=== PATIENT | male | born 1945 | race Caucasian/White ===

== ENCOUNTER 2019-07-18 09:09 | Inpatient (IN) | payer OTHER, SELFPAY ==
[2019-07-18] VITALS (17 sets, daily range): BP systolic 93–143; BP diastolic 47–88; PULSE 68–88; RESP 14–20; TEMP 36–36.8; O2SAT 91–100; BMI 23.8
--- NOTE | 2019-07-18 09:35 | ED.GENADULT ---
HPI - General Adult General Chief complaint: GI Bleed Stated complaint: weakness, low bp, sob Time Seen by Provider: 07/18/19 09:35 Source: patient Mode of arrival: ambulatory Limitations: no limitations History of Present Illness HPI narrative: Patient is a 73-year-old male who presents for evaluation of dark-colored stools. Patient reportedly was seen by his primary care physician today, , found to be tachycardic, hypotensive and sent for assessment. Pt ambulatory in the ED. Pt reported feeling lightheaded and dizzy with standing, otherwise reporting no pain. Patient began to feel unwell Sunday night into with several maroon-colored stools. He has a history of ulceration many years ago that was treated by his primary care provider. Patient did receive chemotherapy in March, for a slow form of lymphoma. No current chemotherapy per patient. Patient states he follows at [facility]. No numbness. No abdominal pain or vomiting. Patient is not on any anticoagulation. Related Data Home Medications Medication Instructions Recorded Confirmed metformin 500 mg PO DAILY 01/02/19 07/18/19 blood sugar diagnostic #10 each 03/26/19 07/18/19 lancets 33 gauge #100 each 03/26/19 07/18/19 pioglitazone 45 mg tablet 45 mg PO DAILY 03/26/19 07/18/19 tadalafil 20 mg tablet 20 mg PO DAILY PRN 03/26/19 07/18/19 Allergies Allergy/AdvReac Type Severity Reaction Status Date / Time No Known Allergies Allergy Verified 07/18/19 09:23 Review of Systems Review of Systems: Narrative: CONSTITUTIONAL: Denies fever, chills, or sweats. EYES: Denies visual changes ENT: Denies rhinorrhea, congestion, sore throat, or otalgia. CARDIOVASCULAR: Denies chest pain, palpitations, or edema. RESPIRATORY: Denies cough or dyspnea. GASTROINTESTINAL: Denies abdominal pain, nausea, vomiting GENITOURINARY: Denies dysuria or hematuria. SKIN: Denies rash or itching. MUSCULOSKELETAL: Denies back pain, joint pain, or myalgia. NEUROLOGIC: Denies headache, numbness, or weakness. [facility] Past Medical History Medical History Anemia COPD (chronic obstructive pulmonary disease) Dyslipidemia, goal LDL below 100 Essential (primary) hypertension Ganglion cyst of joint of finger of left hand HLD (hyperlipidemia) Lymphoma Type 2 diabetes mellitus without complications Wound dehiscence, internal operation Surgical History Surgical History History of colonic polyps Status post exploratory laparotomy Biopsy retroperitoneal lymphadenopathy Wound dehiscence, traumatic injury repair Family History Family History Father Acute myocardial infarction Sibling Cerebrovascular accident Family history of malignant neoplasm of brain Mother Family history of congestive heart failure Social History Social History Smoking status: Former smoker Alcohol intake: never Substance use: never Substance use type: does not use Gender identity (if verbalized by the patient): Male Spiritual care concerns: No Agree to blood products: Yes Exam Narrative: Exam Narrative: GENERAL: Awake, alert, conversant HEAD: Normocephalic, atraumatic. EYES: PERRLA and EOMI. ENT: Nares clear, no rhinorrhea or epistaxis. Mucous membranes moist. NECK: Supple. CHEST: No respiratory distress, breathing even and non labored HEART: Regular rate, sinus rhythm ABDOMEN:Non distended, non tender : Rectal: Good tone, grossly melanotic stool present EXTREMITIES: Normal range of motion. No edema. SKIN: Warm, dry, no rash. NEURO:No focal deficits. Alert and oriented x3 Course Course Emergency Course: Patient presented to the emergency department for evaluation of maroon-colored stools. At the time of initial assessment, ABCs are intact and vital sig
[2019-07-18 09:40] LABS: Basophils Absolute Auto 0.1 K/mm3 (0.0-0.1); Basophils Percent Auto 0.6 % (0.2-1.2); Eosinophils Absolute Auto 0.2 K/mm3 (0-0.3); Eosinophils Percent Auto 2.9 % (0-4.4); Hematocrit 23.1 % (42.0-52.0); Hemoglobin 7.4 g/dL (14.0-18.0); Immature Granulocyte Absolute 0.03 K/mm3 (0.00-0.031); Immature Granulocyte Percent A 0.4 % (0-0.5); Lymphocytes Absolute Auto 1.98 K/mm3 (0.9-3.2); Lymphocytes Percent Auto 23.8 % (18.3-44.2); Mean Corpuscular Hemoglobin 32.3 pg (26-34); Mean Corpuscular Volume 100.9 fl (80-100); Mean Platelet Volume 10.6 fl (7.4-10.4); Monocytes Absolute Auto 0.9 K/mm3 (0.1-0.6); Monocytes Percent Auto 10.8 % (2.6-8.5); Neutrophils Absolute Auto 5.1 K/mm3 (1.3-6.7); Neutrophils Percent Auto 61.5 % (45.5-73.1); Platelet Count Result 247 k/mm3 (150-375); Red Blood Count 2.29 M/mm3 (4.6-6.20); White Blood Count 8.3 K/mm3 (4.5-10.0)
[2019-07-18] MEDS: SODIUM CHLORIDE 0.9% IV 1,000 ML 999 ML IV CONT (09:40)
--- NOTE | 2019-07-18 09:42 | ECG_ITS ---
Measurements Intervals [place] Rate: 79 P: 76 NE: 143 QRS: 73 QRSD: 92 T: 93 QT: 383 QTc: 441 Interpretive Statements SINUS RHYTHM NONSPECIFIC T-WAVE ABNORMALITY- HIGH LATERAL LEADS BASELINE WANDER- I, II, AVR, AVF, V4 BORDERLINE ECG Electronically Signed On 07-18-2019 10:12:37 CDT by Storm Gutierrez D.O.
[2019-07-18 09:50] LABS: Prothrombin Time 13.3 Seconds (11.1-14.7)
[2019-07-18 10:04] LABS: Alanine Aminotransferase 11 U/L (4-50); Albumin Level 3.8 g/dL (3.5-5.1); Alkaline Phosphatase 73 U/L (38-126); Aspartate Amino Transferase 21 U/L (17-59); Bilirubin,Total 0.3 mg/dL (0.2-1.3); Blood Urea Nitrogen 19 mg/dL (9-20); Calcium 8.4 mg/dL (8.4-10.2); Carbon Dioxide 23 mmol/L (22-30); Chloride 106 mmol/L (98-107); Estimated CRCL calculation 79 ml/min; Estimated Glomerular Filt Rate > 60; Glucose 183 mg/dL (75-110); Potassium 4.8 mmol/L (3.4-5.0); Sodium 135 mmol/L (137-145)
[2019-07-18] MEDS: PANTOPRAZOLE SODIUM IV 40 MG VIAL IV PUSH (11:17)
--- NOTE | 2019-07-18 11:58 | PC.NURSE ---
1155 blood consent obtained
--- NOTE | 2019-07-18 13:29 | PC.NURSE ---
Patient in bed resting comfortably with no complaints at this time. Will continue to monitor patient.
[2019-07-18] MEDS: SODIUM CHLORIDE 0.9% IV 250 ML 30 ML IV CONT ×2 (13:30→23:10)
[2019-07-18] MEDS: LACTATED RINGERS 1,000 ML 125 ML IV CONT (17:10)
[2019-07-18 19:30] LABS: Hematocrit 22.3 % (42.0-52.0); Hemoglobin 7.2 g/dL (14.0-18.0)
--- NOTE | 2019-07-18 22:45 | PM.IMHP ---
H&P: HPI History of Present Illness Chief complaint: Dark stools, shortness of breath, weakness. Narrative: Konrad Nieto is a very pleasant 73-year-old male with history of marginal zone lymphoma, chronic anemia, hypertension, hyperlipidemia, and type 2 diabetes mellitus who presented to the emergency department earlier today for evaluation of dark stools, shortness of breath, and weakness. On Sunday night, he reports under general bowel movement and notes passing a large, loose, burgundy colored stool. He had a couple more episodes over the next 24 hours, and since that time he has noticed dyspnea on exertion, generalized weakness, and lightheadedness/dizziness upon standing. He was seen by Dr. Oconnor this morning and was found to be orthostatic and thus was directed to the emergency department while he was found to have grossly melanotic stools on rectal exam. He was also found to have acute on chronic anemia and was admitted in this setting. At the time my evaluation he is just starting to receive his 2nd unit of packed red blood cells. He has not had a bowel movement in the last 48 hours or so. He has a previous history of colon polyps and diverticulosis, but has never had bleed to his knowledge. He denies GERD and indigestion. No history of peptic ulcers. He denies NSAID use and alcohol use. He drinks maybe 4 to 5 cups of coffee a day. Other than the dyspnea on exertion and weakness, he has no complaints. Last colonoscopy was in 2019, done at [facility]. Review of Systems Review of Systems: Narrative: Twelve systems were reviewed with pertinent positives and negatives as per HPI. Weight has remained stable although his appetite has ?dropped off on ?recently.? He denies fever, chills, and sweats. No recent cold or flu symptoms. No chest pain or pleuritic pain. He denies cough. No nausea or vomiting. No dysuria. No lymphadenopathy. Except as documented, all other systems were reviewed and are negative. [facility] Past Medical History Medical History (Updated 07/18/19 @ 23:56 by Eden Gunderson PA-C) Benign prostatic hyperplasia Chronic anemia Colon polyps COPD (chronic obstructive pulmonary disease) Dyslipidemia Essential hypertension Ganglion cyst of joint of finger of left hand Marginal zone lymphoma Treated with chemotherapy at [facility] in [place] per Dr. Gresham. Type 2 diabetes mellitus without complications Surgical History Surgical History (Updated 07/18/19 @ 23:53 by Eden Gunderson PA-C) History of transurethral resection of prostate Status post exploratory laparotomy (~12/2018) With excisional biopsy of periaortic and periportal lymphadenopathy, histology showing marginal zone lymphoma. Wound dehiscence, traumatic injury repair (~01/2019) Repair of abdominal wound fascial dehiscence with evisceration. Family History Family History (Updated 07/18/19 @ 23:53 by Eden Gunderson PA-C) Father Acute myocardial infarction Sibling Cerebrovascular accident Family history of malignant neoplasm of brain Mother Family history of congestive heart failure Sibling Lung cancer Social History Social History (Updated 07/18/19 @ 23:54 by Eden Gunderson PA-C) Social History: The patient is and lives in his own home in [place]. He has 3 biological children and 2 step children. 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 He is a lifelong nonsmoker and denies alcohol and drug abuse. He designates his daughter, Brisa Brunner, as his surrogate decision maker and he wishes to be a full code. Spiritual care concerns: No Agree to blood products: Yes Meds Home Medications and Allergies Home Medications Medication Instructions Recorded Confirmed Type metformin 500 mg PO DAILY 01/02/19 07/18/19 History blood sugar diagnostic #10 each 03/26/19 07/18/19 History lancets 33 gauge #100 each 03/26/19 07/18/19 History pioglitazone 45 mg tablet 45 mg PO DAILY 03/26/19 07/18/19 H
[2019-07-19] VITALS (20 sets, daily range): BP systolic 117–170; BP diastolic 50–90; PULSE 64–87; RESP 16–20; TEMP 36.2–36.8; O2SAT 95–98
[2019-07-19] MEDS: LACTATED RINGERS 1,000 ML 125 ML IV CONT (00:45)
[2019-07-19 03:49] LABS: Hematocrit 24.7 % (42.0-52.0); Hemoglobin 8.1 g/dL (14.0-18.0); Mean Corpuscular HGB Conc 32.8 g/dl (32-36); Mean Corpuscular Volume 97.6 fl (80-100); Mean Platelet Volume 9.8 fl (7.4-10.4); Platelet Count Result 162 k/mm3 (150-375); Red Blood Count 2.53 M/mm3 (4.6-6.20); Red Cell Distribution Width 16.1 % (11.5-14.5); White Blood Count 6.5 K/mm3 (4.5-10.0)
[2019-07-19 04:04] LABS: Blood Urea Nitrogen 9 mg/dL (9-20); Calcium 8.3 mg/dL (8.4-10.2); Carbon Dioxide 27 mmol/L (22-30); Chloride 107 mmol/L (98-107); Estimated CRCL calculation 89 ml/min; Estimated Glomerular Filt Rate > 60; Glucose 109 mg/dL (75-110); Potassium 3.7 mmol/L (3.4-5.0); Sodium 135 mmol/L (137-145)
[2019-07-19 04:32] LABS: Hemoglobin A1C 6.6 % (<5.7)
[2019-07-19 05:56] LABS: Glucose Point of Care 121 (65-105)
--- NOTE | 2019-07-19 06:45 | PC.NURSE ---
Pt to GI lab per w/c. Pt voiced understanding with no complaints at this time.
[2019-07-19] MEDS: LACTATED RINGERS 1,000 ML 150 ML IV CONT (07:00)
--- NOTE | 2019-07-19 07:04 | WPDANESEPPF ---
Anes - Initial Pre Proc Eval Procedure: Operation Date: 07/19/19 07:00 Proposed Procedures p Esophagogastroduodenoscopy - Uday Park MD Date/Time: 07/19/19 07:04 Surgeon: Koffi Mcdonough MD Pre Op Diagnosis: Dark stools, shortness of breath, weakness. Patient Data Age: 73 Gender: M Height: 5 ft 11 in Weight: 77.4 kg Last Vital Signs Temp 36.8 C 07/19/19 06:53 Pulse 72 07/19/19 06:53 Resp 16 07/19/19 06:53 BP 149/72 H 07/19/19 06:53 Pulse Ox 97 07/19/19 06:53 Allergies Allergy/AdvReac Type Severity Reaction Status Date / Time No Known Allergies Allergy Verified 07/19/19 06:53 Home Medications Medication Instructions Recorded Confirmed Type metformin 500 mg PO DAILY 01/02/19 07/18/19 History blood sugar diagnostic #10 each 03/26/19 07/18/19 History lancets 33 gauge #100 each 03/26/19 07/18/19 History pioglitazone 45 mg tablet 45 mg PO DAILY 03/26/19 07/18/19 History tadalafil 20 mg tablet 20 mg PO DAILY PRN 03/26/19 07/18/19 History losartan 50 mg tablet 50 mg PO DAILY #90 tablet 04/04/19 07/18/19 Rx atenolol [Tenormin] 50 mg PO DAILY 07/18/19 07/18/19 History atorvastatin [Lipitor] 10 mg PO DAILY 07/18/19 07/18/19 History glimepiride [Amaryl] 1 mg PO BID 07/18/19 07/18/19 History Laboratory Tests 07/18/19 07/18/19 07/18/19 09:29 09:29 09:30 WBC 8.3 K/mm3 K/mm3 (4.5-10.0) RBC 2.29 M/mm3 L M/mm3 (4.6-6.20) Hgb 7.4 g/dL L D g/dL (14.0-18.0) Hct 23.1 % L % (42.0-52.0) MCV 100.9 fl H fl (80-100) MCH 32.3 pg pg (26-34) MCHC 32.0 g/dl g/dl (32-36) RDW 16.0 % H % (11.5-14.5) Plt Count 247 k/mm3 k/mm3 (150-375) MPV 10.6 fl H fl (7.4-10.4) Immature Gran % (Auto) 0.4 % % (0-0.5) Neut % (Auto) 61.5 % % (45.5-73.1) Lymph % (Auto) 23.8 % % (18.3-44.2) Garden % (Auto) 10.8 % H % (2.6-8.5) Eos % (Auto) 2.9 % % (0-4.4) Baso % (Auto) 0.6 % % (0.2-1.2) Lymph # (Auto) 1.98 K/mm3 K/mm3 (0.9-3.2) Garden # (Auto) 0.9 K/mm3 H K/mm3 (0.1-0.6) Eos # (Auto) 0.2 K/mm3 K/mm3 (0-0.3) Baso # (Auto) 0.1 K/mm3 K/mm3 (0.0-0.1) Abs Immat Gran (auto) 0.03 K/mm3 K/mm3 (0.00-0.031) Absolute Neuts (auto) 5.1 K/mm3 K/mm3 (1.3-6.7) Absolute Nucleated RBC 0.0 K/mm3 K/mm3 (0.0-0.012) Nucleated RBC % 0.0 % % (0.0-0.2) PT 13.3 Seconds Seconds (11.1-14.7) INR 1.0 APTT 27.0 SECONDS SECONDS (22.3-36.8) Sodium Potassium Chloride Carbon Dioxide BUN Creatinine Estim Creat Clear Calc Estimated GFR Glucose POC Capillary Glucose Hemoglobin A1c Calcium Total Bilirubin AST ALT Alkaline Phosphatase Total Protein Albumin Blood Type A Positive Antibody Screen Negative Crossmatch See Detail 07/18/19 07/18/19 07/19/19 09:30 19:26 03:41 WBC 6.5 K/mm3 K/mm3 (4.5-10.0) RBC 2.53 M/mm3 L M/mm3 (4.6-6.20) Hgb 7.2 g/dL L g/dL 8.1 g/dL L g/dL (14.0-18.0) (14.0-18.0) Hct 22.3 % L % 24.7 % L % (42.0-52.0) (42.0-52.0) MCV 97.6 fl fl (80-100) MCH 32.0 pg pg (26-34) MCHC 32.8 g/dl g/dl (32-36) RDW 16.1 % H % (11.5-14.5) Plt Count 162 k/mm3 k/mm3 (150-375) MPV 9.8 fl fl (7.4-10.4) Immature Gran % (Auto) Neut % (Auto) Lymph % (Auto) Garden % (Auto) Eos % (Auto) Baso % (Auto) Lymph # (Auto) Garden # (Auto) Eos # (Auto) Baso # (Auto)
--- NOTE | 2019-07-19 08:15 | PC.NURSE ---
Returned from GI Lab via stretcher with IV saline locked.
[2019-07-19] MEDS: PIOGLITAZONE HCL 45 MG TABLET PO (08:25)
[2019-07-19] MEDS: atenoloL 50 MG TABLET PO (08:25)
[2019-07-19] MEDS: LOSARTAN POTASSIUM 50 MG TABLET PO (08:26)
--- NOTE | 2019-07-19 08:43 | WPDGICN ---
Assessment and Plan Assessment and plan (1) Acute GI bleeding: Code(s): K92.2 - Gastrointestinal hemorrhage, unspecified Status: Acute Assessment and Plan: will proceed with urgent EGD today, he is already on PPI. 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: Code(s): C85.83 - Other specified types of non-Hodgkin lymphoma, intra-abdominal lymph nodes Status: Acute (5) Essential hypertension: Code(s): I10 - Essential (primary) hypertension Status: Acute GI Consult Note Consult date/time: 07/19/19 06:53 Reason for consult: melena HPI: Konrad Nieto is a 73 year old male with history of marginal zone lymphoma previous chemotherapy early this year, chronic anemia (mid 's), hypertension, hyperlipidemia, and type 2 diabetes mellitus admitted with new onset of melena started Sunday night, had a large, loose, burgundy colored stool then 2 more episodes the following day, never had GIB however years ago he was treated for H pylori, currently he is not using PPI. He noticed dyspnea on exertion, generalized weakness, and lightheadedness. Then he decided to see his PCP Dr. Oconnor and was orthostatic therefore sent to ER and admitted. He had a colonoscopy few years ago and he is in 5 year plan . Few days ago had NSAID's, he is not on blood thinners. Hb on admission 7.4 Review of Systems Constitutional: Constitutional: Reports fatigue, Denies headache(s) and Reports lethargy Eyes: Eyes: Denies blurry vision ENT: Reports Normal hearing present, Denies headache(s) and Denies neck pain Cardiovascular: Cardiovascular: Denies chest pain and Denies dyspnea Respiratory: Respiratory: Denies dyspnea Gastrointestinal: Gastrointestinal: Reports melena Genitourinary: Genitourinary: Denies dysuria Musculoskeletal: Musculoskeletal: Denies neck pain Integumentary/Breasts: Skin/Breast: Denies dry skin Neurologic: Reports Normal hearing present, Denies Abnormal speech present and Denies headache(s) Psychiatric: Psychiatric: Denies anxiety Endocrine: Endocrine: Denies change in body appearance Hematologic/Lymphatic: Hematologic/Lymphatic: Denies easy bleeding Allergic/Immunologic: Allergic/Immunologic: Denies urticaria PMFSH Past Medical History Medical History Benign prostatic hyperplasia Chronic anemia Colon polyps COPD (chronic obstructive pulmonary disease) Dyslipidemia Essential hypertension Ganglion cyst of joint of finger of left hand Marginal zone lymphoma Treated with chemotherapy at [facility] in [place] per Dr. Gresham. Type 2 diabetes mellitus without complications Surgical History Surgical History History of transurethral resection of prostate Status post exploratory laparotomy (~12/2018) With excisional biopsy of periaortic and periportal lymphadenopathy, histology showing marginal zone lymphoma. Wound dehiscence, traumatic injury repair (~01/2019) Repair of abdominal wound fascial dehiscence with evisceration. Family History Family History Father Acute myocardial infarction Sibling Cerebrovascular accident Family history of malignant neoplasm of brain Mother Family history of congestive heart failure Sibling Lung cancer Social History Social History Social History: The patient is and lives in his own home in [facility]
[2019-07-19 11:56] LABS: Glucose Point of Care 336 (65-105)
[2019-07-19] MEDS: INSULIN ASPART (*BKC) 100 UNITS/ML SUB-Q (12:13)
[2019-07-19 13:20] LABS: Hematocrit 24.8 % (42.0-52.0)
--- NOTE | 2019-07-19 14:36 | PM.IMPN ---
Progress Note: A&P Assessment and Plan (1) Acute GI bleeding: Code(s): K92.2 - Gastrointestinal hemorrhage, unspecified Status: Acute Assessment and Plan: EGD was completed showing multiple ulcers one large and clots present. He is tolerating a clear diet without any issues at this time. Plan is to continue IV pantoprazole 80 mils per hour continuous infusion for 24 hours and see how he is doing in the morning. Dr. Arshad states if he is feeling better tomorrow he can be switched to oral PPI. Continue monitoring the patient's symptoms. (2) Acute on chronic anemia: Code(s): D64.9 - Anemia, unspecified Status: Acute Assessment and Plan: Secondary to multiple ulcers and clots present on EGD. His H&H today was 8.1 and 24.7. Stable at this time. Will continue to trend hemoglobin and hematocrit. (3) Type 2 diabetes mellitus without complications: Qualifiers: Diabetes mellitus longterm insulin use: without longterm use Qualified Code(s): E11.9 - Type 2 diabetes mellitus without complications Code(s): E11.9 - Type 2 diabetes mellitus without complications Status: Acute Assessment and Plan: Hold metformin while hospitalized. Hemoglobin A1c was 6.6%. Initiate sliding scale insulin, Accu-Cheks, and hypoglycemic protocol. (4) Essential hypertension: Code(s): I10 - Essential (primary) hypertension Status: Acute Assessment and Plan: Blood pressures were reviewed and slightly elevated. Orthostatics today-supine is 149/57, sitting 162/73, standing 142/64. Which is positive for orthostatic hypotension. Could be related to low blood counts. I will review and resume his antihypertensives as appropriate. Time Spent With Patient Time with patient: 25 - 35 minutes Subjective Date/time seen: 07/19/19 14:36 Interval history: Date of service 07/19/2019: The patient reports feeling better after receiving 2 units PRBCs transfused. He states initially after his endoscopy he was not feeling too well but now he is feeling much better. The patient states he did have a burgundy stool this morning. Denies any bloody stools. Denies any nausea, vomiting, abdominal pain, chest pain, shortness of breath, weakness, fatigue, leg swelling, calf pain, fever, chills or any other symptoms at this time. Review of Systems Review of Systems: All systems reviewed & are unremarkable except as noted in HPI and below Exam Narrative: Exam Narrative: General: 73-year-old man laying flat in bed taking a nap. Appears comfortable. In no acute distress. Skin: No jaundice or cyanosis. Good skin turgor. Neck: Full range of motion. Supple. Respiratory: Lungs are clear to auscultation bilaterally. No bony chest wall tenderness. Cardiovascular: The heart has a regular rate and rhythm without murmur. Lower extremities: No lower extremity edema. Distal pulses are easily palpated. No calf tenderness to palpation. Gastrointestinal: The abdomen is soft, nontender and nondistended with active bowel sounds. Psychiatric: Lucid and oriented. Memory intact. Neurologic: No focal deficits. Speech is clear. No facial drooping. Objective Data Vital Signs Vital Signs: Vital Signs - 24 hr 07/18/19 15:35 07/18/19 16:00 07/18/19 16:35 Temperature 97.5 F L 97.6 F Pulse Rate 74 71 79 Respiratory Rate 16 18 Blood Pressure 133/61 143/56 H Pulse Oximetry 98 98 07/18/19 17:05 07/18/19 20:00 07/18/19 22:00 Temperature 96.8 F L 97.0 F L Pulse Rate 77 76 68 Respiratory Rate 18 18 Blood Pressure 143/70 H 130/66 Pulse Oximetry 100 96 07/18/19 23:04 07/18/19 23:19 07/19/19 00:00 Temperature 97.3 F L 97.3 F L Pulse Rate 79 74 74 Respiratory Rate 20 20
[2019-07-19 16:31] LABS: Glucose Point of Care 115 (65-105)
[2019-07-19 21:01] LABS: Glucose Point of Care 188 (65-105)
[2019-07-20] VITALS (10 sets, daily range): BP systolic 129–144; BP diastolic 47–74; PULSE 66–84; RESP 16–18; TEMP 36.4–36.5; O2SAT 95–97
[2019-07-20 05:20] LABS: Hematocrit 25.1 % (42.0-52.0); Hemoglobin 8.3 g/dL (14.0-18.0); Mean Corpuscular HGB Conc 33.1 g/dl (32-36); Mean Corpuscular Hemoglobin 31.9 pg (26-34); Mean Corpuscular Volume 96.5 fl (80-100); Mean Platelet Volume 9.9 fl (7.4-10.4); Platelet Count Result 193 k/mm3 (150-375); Red Cell Distribution Width 16.4 % (11.5-14.5); White Blood Count 6.9 K/mm3 (4.5-10.0)
[2019-07-20 05:35] LABS: Blood Urea Nitrogen 6 mg/dL (9-20); Calcium 8.2 mg/dL (8.4-10.2); Carbon Dioxide 28 mmol/L (22-30); Chloride 104 mmol/L (98-107); Estimated CRCL calculation 89 ml/min; Estimated Glomerular Filt Rate > 60; Glucose 141 mg/dL (75-110); Potassium 3.6 mmol/L (3.4-5.0); Sodium 135 mmol/L (137-145)
[2019-07-20 08:21] LABS: Glucose Point of Care 198 (65-105)
--- NOTE | 2019-07-20 08:41 | PC.NURSE ---
Call to pharmacy to request 0900 medications albertormgerhard, soco, and actos be sent to floor for administration.
--- NOTE | 2019-07-20 10:55 | PC.NURSE ---
Second call to pharmacy for 0900 medications to be sent to floor for administration.
[2019-07-20] MEDS: atenoloL 50 MG TABLET PO (11:13)
[2019-07-20] MEDS: LOSARTAN POTASSIUM 50 MG TABLET PO (11:14)
[2019-07-20] MEDS: PIOGLITAZONE HCL 45 MG TABLET PO (11:14)
--- NOTE | 2019-07-20 12:12 | PM.IMPN ---
Progress Note: A&P Assessment and Plan (1) Acute GI bleeding: Code(s): K92.2 - Gastrointestinal hemorrhage, unspecified Status: Acute Assessment and Plan: EGD was completed showing multiple ulcers one large and clots present. He is tolerating a clear diet without any issues at this time. Liquid diet and advance as tolerated from there. The last 24 hours he was on IV pantoprazole 80 mils per hour continuous infusion. Dr. Arshad switched him to IV pantoprazole 40 mg q.12 hours. He would like to monitor his H&H some more and his symptoms he for possibly discharging him tomorrow if everything continues to remain stable. Continue monitoring the patient's symptoms. (2) Acute on chronic anemia: Code(s): D64.9 - Anemia, unspecified Status: Acute Assessment and Plan: Secondary to multiple ulcers and clots present on EGD. His H&H today was 8 and 25.1. Stable at this time. Will recheck it again this afternoon. Will continue to trend hemoglobin and hematocrit. (3) Type 2 diabetes mellitus without complications: Qualifiers: Diabetes mellitus licensed investment sales assistant insulin use: without licensed investment sales assistant use Qualified Code(s): E11.9 - Type 2 diabetes mellitus without complications Code(s): E11.9 - Type 2 diabetes mellitus without complications Status: Acute Assessment and Plan: Hold metformin while hospitalized. Hemoglobin A1c was 6.6%. Initiate sliding scale insulin, Accu-Cheks, and hypoglycemic protocol. (4) Essential hypertension: Code(s): I10 - Essential (primary) hypertension Status: Acute Assessment and Plan: Blood pressures were reviewed and Are improved today. Orthostatics today-supine is 136/64, sitting 133/47, standing 136/64. Which is positive for orthostatic hypotension with a diastolic change. Patient denies having any lightheadedness, dizziness or orthostatic symptoms. Could be related to low blood counts. I will review and resume his antihypertensives as appropriate. Time Spent With Patient Time with patient: 25 - 35 minutes Subjective Date/time seen: 07/20/19 12:12 Interval history: Date of service 07/20/2019: The patient reports feeling better after receiving 2 units PRBCs transfused, IV pantoprazole. He states he is getting stronger every day. He is still noticing some burgundy stools this morning. Denies any bright stools. Denies any nausea, vomiting, abdominal pain, chest pain, shortness of breath, weakness, fatigue, leg swelling, calf pain, fever, chills or any other symptoms at this time. Review of Systems Review of Systems: All systems reviewed & are unremarkable except as noted in HPI and below Exam Narrative: Exam Narrative: General: 73-year-old man sitting up in bed talking to the nurse. Appears comfortable. In no acute distress. Skin: No jaundice or cyanosis. Good skin turgor. Neck: Full range of motion. Supple. Respiratory: Lungs are clear to auscultation bilaterally. No bony chest wall tenderness. Cardiovascular: The heart has a regular rate and rhythm without murmur. Lower extremities: No lower extremity edema. Distal pulses are easily palpated. No calf tenderness to palpation. Gastrointestinal: The abdomen is soft, nontender and nondistended with active bowel sounds. Psychiatric: Lucid and oriented. Memory intact. Neurologic: No focal deficits. Speech is clear. No facial drooping. Objective Data Vital Signs Vital Signs: Vital Signs - 24 hr 07/19/19 14:00 07/19/19 16:00 07/19/19 20:00 Temperature 98.1 F Pulse Rate 70 71 71 Respiratory Rate 16 Blood Pressure 117/50 L Pulse Oximetry 95 07/19/19 22:00 07/20/19 00:00 07/20/19 04:00 Temperature 97.3 F L Pulse Rate 64 77 76 Res
[2019-07-20 12:26] LABS: Glucose Point of Care 182 (65-105)
--- NOTE | 2019-07-20 13:33 | WPDGIPROGNO ---
Progress Note: A&P Assessment and Plan (1) Duodenal ulcer: Code(s): K26.9 - Duodenal ulcer, unspecified as acute or chronic, without hemorrhage or perforation Status: Acute Assessment and Plan: large duodenal ulcer treated endoscopically yesterday with gold probe, epinephrine and clips x2 no more need of blood transfusion since admission (received 2 units) hb relatively stable at 8 ok to switch to protonix bid and advance diet as tolerated (2) Acute GI bleeding: Code(s): K92.2 - Gastrointestinal hemorrhage, unspecified Status: Acute Assessment and Plan: continue to monitor, vital signs stable (3) Orthostatic hypotension: Code(s): I95.1 - Orthostatic hypotension Status: Acute (4) Acute blood loss anemia: Code(s): D62 - Acute posthemorrhagic anemia Status: Acute Assessment and Plan: will need iron supplement avoid nsaid's if H pylori then will need treatment (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: Code(s): C85.83 - Other specified types of non-Hodgkin lymphoma, intra-abdominal lymph nodes Status: Acute Subjective Date/time seen: 07/20/19 13:33 Interval history: no more bleeding, looking better and tolerating diet Review of Systems Review of Systems: All systems reviewed & are unremarkable except as noted in HPI and below Exam Const: General: comfortable and no acute distress HENMT: General nose exam: Normal nares present Eyes: General: appearance normal, both eyes and all related structures Neck: Neck: no JVD Resp: Auscultation: clear to auscultation bilaterally Cardio: Rate: regular rate Rhythm: regular rhythm GI: Inspection: non-distended and scar GI Palp: Yes Soft to palpation and No Tenderness to palpation present (GI) Auscultation: normal bowel sounds Skin: General skin exam: pallor Rashes: no rashes noted Neuro: General: gait normal Speech: normal speech Extrem: General: normal to inspection Psych: Mental Status: mental status grossly normal Objective Data Vital Signs Vital Signs: Vital Signs - 24 hr 07/19/19 14:00 07/19/19 16:00 07/19/19 20:00 Temperature 98.1 F Pulse Rate 70 71 71 Respiratory Rate 16 Blood Pressure 117/50 L Pulse Oximetry 95 07/19/19 22:00 07/20/19 00:00 07/20/19 04:00 Temperature 97.3 F L Pulse Rate 64 77 76 Respiratory Rate 16 Blood Pressure 130/64 Pulse Oximetry 98 07/20/19 07:30 07/20/19 08:00 07/20/19 11:13 Temperature 97.5 F L Pulse Rate 72 84 Respiratory Rate 18 Blood Pressure 136/64 133/47 L Pulse Oximetry 96 Intake/Output Intake/Output: Intake & Output 07/17/19 07/18/19 07/19/19 07/20/19 23:59 23:59 23:59 23:59 Intake Total 1210 4210.0 1110 Output Total 400 2800 2250 Balance 810 1410.0 -1140 Meds/Results Medications: Active Medications Generic Name Dose Route Start Last Admin Trade Name Freq PRN Reason Stop Dose Admin Atenolol 50 mg 07/19/19 09:00 07/20/19 11:13 Tenormin PO 50 mg DAILY [place] Administration Dextrose 12.5 gm 07/19/19 00:00 Dextrose 50% Syringe IV PUSH PRN PRN Hypoglycemia Protocol Glucagon 1 mg 07/19/19 00:00 Glucagon For Inj IM PRN PRN Hypoglycemia Protocol Glucose 15 gm 07/19/19 00:00 Glutose 15 PO PRN PRN Hypoglycemia Protocol Dextrose 1,000 mls @ 100 mls/hr 07/19/19 00:00 Dextrose 5% 1,000 Ml IVPB PRN PRN Hypoglycemia Protocol Insulin Aspart 2 - 5 units 07/19/19 08:00 07/20/19 12:21 Novolog SUB-Q Not Given TIDWM [place] Protocol Losartan Potassium 50 mg 07/19/19 09:00 07/20/19 11:14 Cozaar PO 50 mg DAILY [place] Administration Morphine Sulfate 4 mg 07/18/19 10:24 Morphine Sulfate Inj IV PUSH Q2H PRN Pain Rated 7-10 Ondansetron HCl 4 mg 07/18/19 10:24 Zofran Inj IV PUSH Q4H PRN Nausea Pioglitazone HCl 45 mg 07/03
[2019-07-20 13:56] LABS: Hematocrit 27.6 % (42.0-52.0); Hemoglobin 8.9 g/dL (14.0-18.0)
[2019-07-20 17:18] LABS: Glucose Point of Care 141 (65-105)
[2019-07-20] MEDS: PANTOPRAZOLE SODIUM IV 40 MG VIAL IV PUSH (20:45)
[2019-07-20 22:44] LABS: Glucose Point of Care 130 (65-105)
[2019-07-21] VITALS (9 sets, daily range): BP systolic 117–143; BP diastolic 58–71; PULSE 69–83; RESP 18; TEMP 36.2; O2SAT 96
[2019-07-21 05:45] LABS: Hematocrit 27.7 % (42.0-52.0); Hemoglobin 9.2 g/dL (14.0-18.0); Mean Corpuscular HGB Conc 33.2 g/dl (32-36); Mean Corpuscular Hemoglobin 31.9 pg (26-34); Mean Corpuscular Volume 96.2 fl (80-100); Mean Platelet Volume 10.2 fl (7.4-10.4); Platelet Count Result 220 k/mm3 (150-375); Red Blood Count 2.88 M/mm3 (4.6-6.20); Red Cell Distribution Width 16.3 % (11.5-14.5); White Blood Count 6.3 K/mm3 (4.5-10.0)
[2019-07-21 05:57] LABS: Blood Urea Nitrogen 7 mg/dL (9-20); Calcium 8.7 mg/dL (8.4-10.2); Carbon Dioxide 29 mmol/L (22-30); Chloride 103 mmol/L (98-107); Estimated CRCL calculation 89 ml/min; Estimated Glomerular Filt Rate > 60; Glucose 145 mg/dL (75-110); Magnesium 1.9 mg/dL (1.6-2.3); Potassium 3.9 mmol/L (3.4-5.0); Sodium 136 mmol/L (137-145)
[2019-07-21 07:58] LABS: Glucose Point of Care 144 (65-105)
--- NOTE | 2019-07-21 08:04 | WPDGIPROGNO ---
Progress Note: A&P Assessment and Plan (1) Duodenal ulcer: Code(s): K26.9 - Duodenal ulcer, unspecified as acute or chronic, without hemorrhage or perforation Status: Acute Assessment and Plan: large duodena ulcer treated endoscopically 2 days ago will need tank terminal gauger PPI twice a day no nsaid's Luann-test was negative ok to go home and follow up office in 3-4 weeks with cbc (2) Acute blood loss anemia: Code(s): D62 - Acute posthemorrhagic anemia Status: Acute Assessment and Plan: resolved, no more bleeding will need also iron supplement (3) Acute GI bleeding: Code(s): K92.2 - Gastrointestinal hemorrhage, unspecified Status: Acute Assessment and Plan: resolved (4) Orthostatic hypotension: Code(s): I95.1 - Orthostatic hypotension Status: Acute Subjective Date/time seen: 07/21/19 08:04 Interval history: tolerating diet, no more bleeding, he is not dizzy anymore. Review of Systems Review of Systems: All systems reviewed & are unremarkable except as noted in HPI and below Exam Const: General: comfortable and no acute distress HENMT: General nose exam: Normal nares present Eyes: General: appearance normal, both eyes and all related structures Neck: Neck: no JVD Resp: Auscultation: clear to auscultation bilaterally Cardio: Rate: regular rate Rhythm: regular rhythm GI: Inspection: non-distended GI Palp: Yes Soft to palpation Skin: General skin exam: normal color Neuro: General: gait normal Speech: normal speech Extrem: General: normal to inspection Psych: Mental Status: mental status grossly normal Objective Data Vital Signs Vital Signs: Vital Signs - 24 hr 07/20/19 11:13 07/20/19 12:00 07/20/19 14:00 Temperature 97.7 F Pulse Rate 84 70 66 Respiratory Rate 16 Blood Pressure 141/74 H Pulse Oximetry 97 07/20/19 16:00 07/20/19 20:00 07/20/19 22:00 Temperature 97.6 F Pulse Rate 67 71 69 Respiratory Rate 16 Blood Pressure 144/74 H Pulse Oximetry 95 07/21/19 00:00 07/21/19 04:00 07/21/19 06:00 Temperature 97.2 F L Pulse Rate 69 69 79 Respiratory Rate 18 Blood Pressure 118/68 Pulse Oximetry 96 07/21/19 06:40 Temperature Pulse Rate Respiratory Rate Blood Pressure 119/67 Pulse Oximetry Intake/Output Intake/Output: Intake & Output 07/18/19 07/19/19 07/20/19 07/21/19 23:59 23:59 23:59 23:59 Intake Total 1210 4210.0 2865 375 Output Total 400 2800 3650 1550 Balance 810 1410.0 -785 -1175 Meds/Results Medications: Active Medications Generic Name Dose Route Start Last Admin Trade Name Freq PRN Reason Stop Dose Admin Atenolol 50 mg 07/19/19 09:00 07/20/19 11:13 Tenormin PO 50 mg DAILY [place] Administration Dextrose 12.5 gm 07/19/19 00:00 Dextrose 50% Syringe IV PUSH PRN PRN Hypoglycemia Protocol Glucagon 1 mg 07/19/19 00:00 Glucagon For Inj IM PRN PRN Hypoglycemia Protocol Glucose 15 gm 07/19/19 00:00 Glutose 15 PO PRN PRN Hypoglycemia Protocol Dextrose 1,000 mls @ 100 mls/hr 07/19/19 00:00 Dextrose 5% 1,000 Ml IVPB PRN PRN Hypoglycemia Protocol Insulin Aspart 2 - 5 units 07/19/19 08:00 07/20/19 16:33 Novolog SUB-Q Not Given TIDWM [place] Protocol Losartan Potassium 50 mg 07/19/19 09:00 07/20/19 11:14 Cozaar PO 50 mg DAILY [place] Administration Morphine Sulfate 4 mg 07/18/19 10:24 Morphine Sulfate Inj IV PUSH Q2H PRN Pain Rated 7-10 Ondansetron HCl 4 mg 07/18/19 10:24 Zofran Inj IV PUSH Q4H PRN Nausea Pantoprazole Sodium 40 mg 07/20/19 21:00 07/20/19 20:45 Protonix Iv IV PUSH 40 mg Q12HR [place] Administration Pioglitazone HCl 45 mg 07/19/19 09:00 07/20/19 11:14 Actos PO 45 mg DAILY [place] Administration Labs Labs: Laboratory Results - last 24 hr 07/20/19 07/20/19 07/20/19 08:09 1
[2019-07-21] MEDS: PANTOPRAZOLE SODIUM IV 40 MG VIAL IV PUSH (08:07)
[2019-07-21] MEDS: PIOGLITAZONE HCL 45 MG TABLET PO (08:07)
[2019-07-21] MEDS: atenoloL 50 MG TABLET PO (08:07)
[2019-07-21] MEDS: LOSARTAN POTASSIUM 50 MG TABLET PO (08:07)
--- NOTE | 2019-07-21 09:33 | PM.DS ---
DS: Diagnosis Admitting Diagnosis Admitting Diagnosis: Gastrointestinal hemorrhage, unspecified Discharge Diagnosis (1) Acute GI bleeding: Code(s): K92.2 - Gastrointestinal hemorrhage, unspecified Status: Acute Assessment and Plan: EGD was completed showing multiple ulcers one large and clots present. He is tolerating a regular diet without any issues. After his EGD he was placed on IV pantoprazole 80 mils per hour continuous infusion for 24 hours. Yesterday he was then placed on IV pantoprazole 40 mg q.[address] Arshad evaluated him and feels he is stable for discharge to continue oral pantoprazole 40 mg twice a day[address] Dr. Arshad would like him to follow-up in the office in 3-4 weeks and have him check some labs, CBC prior to arrival. Patient is still noticing slight dark stools in his bowel movements but his H&H is increasing. (2) Acute on chronic anemia: Code(s): D64.9 - Anemia, unspecified Status: Acute Assessment and Plan: Secondary to multiple ulcers and clots present on EGD. His H&H today was 9.2/27.7%. Improving. Will check a CBC and 2 weeks. Have him follow-up with Dr. Arshad and his primary care provider. (3) Type 2 diabetes mellitus without complications: Qualifiers: Diabetes mellitus epic ambulatory specialists insulin use: without epic ambulatory specialists use Qualified Code(s): E11.9 - Type 2 diabetes mellitus without complications Code(s): E11.9 - Type 2 diabetes mellitus without complications Status: Acute Assessment and Plan: Hold metformin while hospitalized. Serum glucose this morning was 145. Hemoglobin A1c was 6.6%. Continue him on his home medications and follow-up with primary care provider. (4) Essential hypertension: Code(s): I10 - Essential (primary) hypertension Status: Acute Assessment and Plan: Blood pressures were reviewed and Are improved today. Orthostatics today-supine is 135/60, sitting 143/58, standing 117/67. Which is positive for orthostatic hypotension, but the patient is asymptomatic and denies any lightheadedness, dizziness or orthostatic symptoms. Recommend him checking his blood pressure at home and following up with the primary care provider. DS: Summary Hospital Course Reason for hospitalization: Patient is a 73-year-old man with history of marginal zone lymphoma, status post chemotherapy, who presented to the ER with evaluation of dark stools, shortness of breath and weakness. Initial vitals showed temperature of 98.4?, blood pressure 102/54, heart rate 84, oxygen saturation 98% on room air, respiratory rate 20. Initial labs showed macrocytic anemia hemoglobin at 7.4 and hematocrit 23%, normal coag panel, CMP showed slight hyponatremia at 135 otherwise normal. Hemoccult stool was positive. He was given 2 units of PRBCs and admitted to the hospital for acute GI bleed with a consult to GI. Patient had an EGD completed by Dr. Arshad which showed multiple ulcers and 1 large ulcer with a clot present. Dr. Arshad ordered continuous IV Protonix for 24 hours, then decrease to IV Protonix 40 mg for 24 hours and today he recommended the patient starting oral Protonix 40 mg p.o. b.i.d. long-term. The patient is doing much better today and his H&H is improving to 9.2/27%. He feels back to his baseline and is ready for discharge. Follow-up with Dr. Arshad in 3-4 weeks and check a CBC in 2 weeks. Status at Discharge Cognitive/behavioral status at discharge: Stable, improved. Time Spent with Patient Time attestation: Total time spent providing and/or coordinating discharge services: Time spent: Greater than 30 minutes Exam Narrative: Exam Narrative: G
== END 2019-07-21 11:06 | disposition home or self-care (01) | DRG 378 ==
LOC: ANHED 10:29 → ANH2MED 11:50
PROVIDERS: Internal Medicine Gastroenterology; Physician Assistant; Admitting Provider Internal Medicine; Emergency Provider Emergency Medicine; PCP Internal Medicine; Visit Provider Internal Medicine
PROC: 0DJ08ZZ Inspection of Upper Intestinal Tract, Via Natural or Artificial Opening Endoscopic (ICD-10-PCS; CPT 43235; principal; 2019-07-19 07:00)
DX: K26.0 Acute duodenal ulcer with hemorrhage (principal); D62 Acute posthemorrhagic anemia; E87.1 Hypo-osmolality and hyponatremia; I95.1 Orthostatic hypotension; K44.9 Diaphragmatic hernia without obstruction or gangrene; E11.9 Type 2 diabetes mellitus without complications; I10 Essential (primary) hypertension; E78.5 Hyperlipidemia, unspecified; N40.0 Benign prostatic hyperplasia without lower urinary tract symptoms; J44.9 Chronic obstructive pulmonary disease, unspecified; Z87.891 Personal history of nicotine dependence; Z85.72 Personal history of non-Hodgkin lymphomas
CPT/HCPCS: 36415; 36430; 80048; 80053; 83036; 83735; 85014; 85018; 85025; 85027; 85610; 85730; 86850; 86900; 86901; 86920; 87081; 88305; 93005; 96361; 96365; 96366; 96375; 99285; A9270; C9113; G0378; J0171; J1815; J2704; J7030; J7050; J7060; J7120; P9016

== ENCOUNTER 2019-08-04 10:21 | Outpatient (CLI) | payer OTHER, SELFPAY ==
[2019-08-04 11:06] LABS: Hematocrit 30.1 % (42.0-52.0); Hemoglobin 9.4 g/dL (14.0-18.0); Mean Corpuscular HGB Conc 31.2 g/dl (32-36); Mean Corpuscular Hemoglobin 30.9 pg (26-34); Mean Platelet Volume 9.9 fl (7.4-10.4); Platelet Count Result 269 k/mm3 (150-375); Red Blood Count 3.04 M/mm3 (4.6-6.20); Red Cell Distribution Width 15.3 % (11.5-14.5)
== END 2019-08-04 10:22 | disposition home or self-care (01) ==
LOC: ANHLAB 10:23
PROVIDERS: PCP Internal Medicine; Visit Provider Physician Assistant
DX: D62 Acute posthemorrhagic anemia (principal); K92.2 Gastrointestinal hemorrhage, unspecified
CPT/HCPCS: 36415; 85027

== ENCOUNTER 2019-09-16 01:58 | Outpatient (CLI) | payer OTHER, SELFPAY ==
[2019-09-16 19:09] LABS: SARS-CoV-2 RNA PCR Negative
== END 2019-09-16 01:59 | disposition home or self-care (01) ==
LOC: ANHCOVIDDT 01:59
PROVIDERS: PCP Internal Medicine; Visit Provider Surgery
DX: Z01.818 Encounter for other preprocedural examination (principal); Z11.59 Encounter for screening for other viral diseases
CPT/HCPCS: 87635; C9803; U0003

== ENCOUNTER 2019-09-18 10:59 | Observation (INO) | payer OTHER, SELFPAY ==
[2019-09-11 14:24] VITALS: BMI 24.3
[2019-09-17] VITALS (13 sets, daily range): BP systolic 121–155; BP diastolic 61–73; PULSE 63–72; RESP 10–19; TEMP 36.2–36.6; O2SAT 93–100; BMI 25.1
--- NOTE | 2019-09-17 06:46 | WPDHPUPDATE1 ---
History and Physical Update Update Date/Time: 09/17/19 06:46 History and Physical has been reviewed, including an updated exam of the patient. There are NO changes in the patient's condition. Risks, benefits, and alternatives have been discussed and questions answered. Patient agrees to proceed with procedure.
--- NOTE | 2019-09-17 07:18 | WPDANESEPPF ---
Anes - Initial Pre Proc Eval Procedure: Operation Date: 09/17/19 08:30 Proposed Procedures p Laparoscopic Incisional Hernia Repair - Veto Lee MD Date/Time: 09/17/19 07:18 Surgeon: Veto Lee MD Pre Op Diagnosis: Incisional Hernia Patient Data Age: 73 Gender: M Height: 5 ft 11 in Weight: 79 kg Allergies Allergy/AdvReac Type Severity Reaction Status Date / Time No Known Allergies Allergy Verified 09/11/19 14:20 Home Medications Medication Instructions Recorded Confirmed Type metformin 500 mg PO BID 01/02/19 09/11/19 History blood sugar diagnostic #10 each 03/26/19 08/25/19 History lancets 33 gauge #100 each 03/26/19 08/25/19 History pioglitazone 45 mg tablet 45 mg PO DAILY 03/26/19 09/11/19 History tadalafil 20 mg tablet 20 mg PO DAILY PRN 03/26/19 09/11/19 History losartan 50 mg tablet 50 mg PO DAILY #90 tablet 04/04/19 09/11/19 Rx atenolol [Tenormin] 50 mg PO DAILY 07/18/19 09/11/19 History atorvastatin [Lipitor] 10 mg PO DAILY 07/18/19 09/11/19 History glimepiride [Amaryl] 1 mg PO BID 07/18/19 09/11/19 History omeprazole 20 mg capsule,delayed 20 mg PO BID #60 cap 07/22/19 09/11/19 Rx release Patient hx anesthesia problems: none Family hx anesthesia problems: none PMFSH Past Medical History Medical History Acute blood loss anemia Benign prostatic hyperplasia Chronic anemia Colon polyps Duodenal ulcer Dyslipidemia Essential hypertension Ganglion cyst of joint of finger of left hand GI bleed due to NSAIDs Marginal zone lymphoma Treated with chemotherapy at [facility] in [place] per Dr. Gresham. Type 2 diabetes mellitus without complications Surgical History Surgical History History of transurethral resection of prostate Status post exploratory laparotomy (~12/2018) With excisional biopsy of periaortic and periportal lymphadenopathy, histology showing marginal zone lymphoma. Wound dehiscence, traumatic injury repair (~01/2019) Repair of abdominal wound fascial dehiscence with evisceration. Family History Family History Father Acute myocardial infarction Sibling Cerebrovascular accident Family history of malignant neoplasm of brain Mother Family history of congestive heart failure Sibling Lung cancer Social History Social History Social History: The patient is and lives in his own home in [place]. He has 3 biological children and 2 step children. 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 He is a lifelong nonsmoker and denies alcohol and drug abuse. He designates his daughter, Brisa Brunner, as his surrogate decision maker and he wishes to be a full code. Years smoked: 5 Tobacco type: cigarettes Living arrangements: alone Spiritual care concerns: No Agree to blood products: Yes Anes - Eval Final PreProcedure Day of Procedure 09/17/19 07:18 Patient weight: normal Heart: regular rate and rhythm Lungs: clear to auscultation Airway: Mallampati scale class II and special considerations (loose left incisor discussed risk of damage) Neurological: alert and oriented Last oral intake: >/= 8 hours ASA classification: III Emergent: no Anesthetic plan: proceed Anesthesia type and monitoring: general ETT and standard monitoring Informed Consent: The patient's anesthetic plan and its attendant risks and benefits were discussed with the patient/family/POA. Questions were solicited and answers provided to the satisfaction of the patient/family/POA.
[2019-09-17] MEDS: LACTATED RINGERS 1,000 ML 30 ML IV CONT ×2 (07:25→10:25)
[2019-09-17 07:28] LABS: Glucose Point of Care 149 (65-105)
[2019-09-17] MEDS: ACETAMINOPHEN 500 MG TABLET 1000 MG PO (07:30)
[2019-09-17] MEDS: ceFAZolin 2 GM/D5W 50 ML 2 GM/50 ML BAG IVPB (08:40)
[2019-09-17] MEDS: BUPIVACAINE/EPINEPHRINE 0.5% 30 ML VIAL INFILTRATE (09:26)
--- NOTE | 2019-09-17 10:47 | PM.PROC ---
Procedure Note - Detailed Date of procedure: 09/17/19 Pre-op diagnosis: Incisional Hernia Incisional ventral hernia Post-op diagnosis: other (Multiple incisional hernias) Procedure performed: Laparoscopic repair of multiple incisional hernias with a 25 x 20 cm Symbotex mesh Description of procedure: The patient was taken to surgery and induced into general anesthesia. Richardson catheter was placed. The entire abdomen was prepped and draped. The initial trocar was an optical applied Medical trocar and was placed in the lateral left subcostal position. Once positioned, insufflation was carried out. A left epigastric 5 mm port was then placed as well as a 10 11 left lower quadrant port. These were placed under direct visualization. Local anesthetic was infiltrated prior to placement of all the trocars. Once these 3 trocars were in position, anterior abdominal wall adhesions, including some omentum in the hernia, were dissected and taken down from the abdominal wall. The herniated contents reduced easily. Once the abdominal wall was freed from adhesions, it was easy to see that there were multiple incisional hernias that extended the entire extent of the incision. I then reduced insufflation and marked the upper extent of transfascial suture placement as well as the lower most extent. Both these positions were in the midline. I measured the distance between these 2. To cover the entire extent of the multiple abdominal wall defects would require a 25 cm length mesh. Width of the defects was very small so mesh width was inconsequential. A 25 x 20 cm Symbotex mesh was chosen. I placed cranial and caudal transfascial sutures on the mesh. I also placed a suture that would be on the right lateral position. This was 0 [place]-Paulo suture. The ends were left long so that they could be brought out the abdominal wall with the [place]af suture Passer. Insufflation pressure was increased again. The mesh was rolled and then placed in the abdomen through the 10 11 left lower quadrant trocar. It was unrolled and positioned such that the adhesion barrier was towards the bowel. The cranial transfascial suture was brought through the epigastric midline just below the xiphoid. The caudal transfascial suture was brought out the midline well below the umbilicus such that there would be well over 5 cm overlap to the lower most aspect of the old incision and hernia defects. These suture were checked and rechecked. Their position appeared to be good. I then placed the right lateral transfascial suture in the appropriate position as well. I checked all 3 of these sutures and the positioning was excellent. I again lowered insufflation and then tied down all the suture. I exposed the right side of the mesh and used secure strap tacks to secure the right side of the mesh to the anterior abdominal wall. The mesh fixation went well and the mesh was nice and flat against the abdominal wall. I then placed 2 5 mm ports on the right side of the abdomen lateral to the mesh position. The camera was placed on the right side and I then worked from the right side. We used secure strap tacks to secure the left half of the mesh to the anterior abdominal wall in the same fashion. Multiple tacks were placed on the left side as well. When the left side was completed, the camera was placed again on the left and I resume working from the patient's left. A few additional tacks were placed. There was very little bleeding. The mesh was again surveyed and looked to be in excellent position. We then evacuated CO2 and removed the trocar sleeves. The laparoscopic trocar incisions were closed with subcuticular 4 O Monocryl skin suture. Transfascial suture incisions were closed with Exofin surgical adhesive. The patient was awakened and taken to recovery in good condition. Sponge and needle counts were correct x2. Implants: 25 x 20 cm Symbotex mesh Anesthesia: GETA and local (0.5% Marcaine with epinephrine) Surgeon:
[2019-09-17 10:50] LABS: Glucose Point of Care 183 (65-105)
--- NOTE | 2019-09-17 11:22 | SUR.PHASEI ---
1128 SBAR FAXED FLOOR NOTIFIED
--- NOTE | 2019-09-17 11:51 | ADMGEN ---
This patient, Konrad Nieto, was admitted to Medical Room 249-01. Patient/family oriented to hospital policies and general routines including ID bracelet, bed and alarms, visiting hours, pain management, procedures, bathroom and other care routines, personal items, smoking policy, room service/diet, and visiting hours. Valuables list has been completed. Information on how to activate the Rapid Response Team has been discussed. Patient/Family are encouraged to report perceived risks to care and to ask questions if they do not understand what they are told or what they should do.
[2019-09-17] MEDS: MORPHINE SULFATE 4 MG/ML INJ IV PUSH ×2 (12:09→17:25)
[2019-09-17] MEDS: ONDANSETRON INJ 4 MG/2 ML VIAL IV PUSH (12:09)
[2019-09-17] MEDS: LACTATED RINGERS 1,000 ML 100 ML IV CONT (12:10)
[2019-09-17] MEDS: IBUPROFEN IV 800 MG/200 ML 800 MG/200 ML BAG 400 MG IVPB ×2 (12:10→18:37)
[2019-09-17 13:30] LABS: Glucose Point of Care 173 (65-105)
[2019-09-17] MEDS: PANTOPRAZOLE SODIUM IV 40 MG VIAL IV PUSH (14:49)
[2019-09-17 16:25] LABS: Glucose Point of Care 156 (65-105)
[2019-09-17] MEDS: GLIMEPIRIDE 1 MG TABLET PO (17:12)
[2019-09-17] MEDS: metFORMIN HCL 500 MG TABLET PO (17:12)
[2019-09-17] MEDS: SENNA/DOCUSATE SODIUM TABLET 2 TAB PO (21:03)
[2019-09-17] MEDS: ENOXAPARIN 30 MG/0.3 ML SYRINGE SUB-Q (21:04)
[2019-09-17 21:23] LABS: Glucose Point of Care 246 (65-105)
[2019-09-18] VITALS (8 sets, daily range): BP systolic 125–153; BP diastolic 43–79; PULSE 67–74; RESP 12–20; TEMP 36.1–36.8; O2SAT 83–96
[2019-09-18] MEDS: IBUPROFEN IV 800 MG/200 ML 800 MG/200 ML BAG 400 MG IVPB ×4 (00:50→18:09)
[2019-09-18 06:24] LABS: Hemoglobin 8.6 g/dL (14.0-18.0); Mean Corpuscular HGB Conc 30.7 g/dl (32-36); Mean Corpuscular Hemoglobin 28.4 pg (26-34); Mean Corpuscular Volume 92.4 fl (80-100); Mean Platelet Volume 10.3 fl (7.4-10.4); Platelet Count Result 240 k/mm3 (150-375); Red Blood Count 3.03 M/mm3 (4.6-6.20); Red Cell Distribution Width 15.4 % (11.5-14.5); White Blood Count 7.2 K/mm3 (4.5-10.0)
[2019-09-18 06:37] LABS: Blood Urea Nitrogen 12 mg/dL (9-20); Calcium 8.1 mg/dL (8.4-10.2); Carbon Dioxide 28 mmol/L (22-30); Chloride 102 mmol/L (98-107); Estimated CRCL calculation 79 ml/min; Estimated Glomerular Filt Rate > 60; Glucose 113 mg/dL (75-110); Potassium 3.7 mmol/L (3.4-5.0); Sodium 134 mmol/L (137-145)
[2019-09-18 07:47] LABS: Glucose Point of Care 136 (65-105)
[2019-09-18] MEDS: polyethylene glycoL 3350 17 GM POWD.PACK PO (08:12)
[2019-09-18] MEDS: PIOGLITAZONE HCL 45 MG TABLET PO (08:12)
[2019-09-18] MEDS: ENOXAPARIN 30 MG/0.3 ML SYRINGE SUB-Q ×2 (08:12→20:06)
[2019-09-18] MEDS: GLIMEPIRIDE 1 MG TABLET PO ×2 (08:12→17:13)
[2019-09-18] MEDS: LOSARTAN POTASSIUM 50 MG TABLET PO (08:13)
[2019-09-18] MEDS: metFORMIN HCL 500 MG TABLET PO ×2 (08:13→17:13)
[2019-09-18] MEDS: ATORVASTATIN 10 MG TABLET PO (08:13)
[2019-09-18] MEDS: atenoloL 50 MG TABLET PO (08:13)
[2019-09-18] MEDS: PANTOPRAZOLE 40 MG TABLET PO (08:13)
--- NOTE | 2019-09-18 10:02 | PM.PNGS ---
Progress Note: A&P Assessment and Plan (1) Incisional hernia: Qualifiers: Obstruction and gangrene presence: without obstruction or gangrene Qualified Code(s): K43.2 - Incisional hernia without obstruction or gangrene Code(s): K43.2 - Incisional hernia without obstruction or gangrene Status: Acute Assessment and Plan: POD1 and doing well. Advance to a regular diet. Increase activity and encouraged ambulating in the halls. D/c valenzuela catheter. If he continues to progress well, we will possibly discharge the patient tomorrow. (2) Essential hypertension: Code(s): I10 - Essential (primary) hypertension Status: Acute Assessment and Plan: BP stable on home medication. Continue to monitor. (3) Type 2 diabetes mellitus without complications: Qualifiers: Diabetes mellitus termination clerk insulin use: without termination clerk use Qualified Code(s): E11.9 - Type 2 diabetes mellitus without complications Code(s): E11.9 - Type 2 diabetes mellitus without complications Status: Acute (4) Lymphoma: Code(s): C85.90 - Non-Hodgkin lymphoma, unspecified, unspecified site Status: Acute Additional Plan Discussed plan of care with Dr. Lee. Subjective Subjective Date/Time Seen: 09/18/19 09:32 Post Op day: 1 Patient reports: feels better, pain is less, tolerating a regular diet, flatus and no bowel movement Interval history: Patient reports feeling well this morning. Minimal incisional pain that has not required narcotics overnight. Reports walking in the room and tolerating this well. Reports flatus, but no BM. Denies nausea, vomiting, or bloating. No other complaints at this time. Review of Systems Review of Systems: All systems reviewed & are unremarkable except as noted in HPI and below Constitutional: Constitutional: Denies chills and Denies fever(s) Cardiovascular: Cardiovascular: Reports no additional cardiovascular complaints, Denies chest pain and Denies leg edema Respiratory: Respiratory: Reports no additional respiratory complaints, Denies cough, Denies dyspnea and Denies dyspnea on exertion Gastrointestinal: Gastrointestinal: Reports as per HPI and Reports no additional gastrointestinal complaints Exam Const: General: comfortable, no acute distress, alert and awake Orientation/consciousness: patient oriented x3 Resp: Effort & Inspection: normal respiratory effort and able to speak in complete sentences Auscultation: clear to auscultation bilaterally Cardio: Rate: regular rate Rhythm: regular rhythm GI: Inspection: incision (Abdominal incisions clean/dry/intact.) and other (Just slightly distended) GI Palp: Yes Soft to palpation, Yes Tenderness to palpation present (GI) (Mostly tender near the midline), No Guarding due to palpation present (GI) and No Rebound tenderness present Auscultation: normal bowel sounds Neuro: General: moves all extremities Cranial nerves: Yes CN's II-XII intact bilaterally Speech: normal speech Extrem: General: no calf tenderness and no edema Psych: Mental Status: mental status grossly normal Attitude: cooperative Thought process: Normal thought process present Thought content: Yes Normal thought content present Objective Data Vital Signs Vital Signs: Vital Signs - 24 hr 09/17/19 10:30 09/17/19 10:45 09/17/19 11:00 Temperature 97.5 F L Pulse Rate 68 65 65 Respiratory Rate 12 12 16 Blood Pressure 129/68 153/73 H 155/67 H Pulse Oximetry 100 98 99 09/17/19 11:15 09/17/19 11:34 09/17/19 11:55 Temperature 97.2 F L Pulse Rate 67 72 70 Respiratory Rate 14 10 L 19 Blood Pressure 146/70 H 144/65 H 139/62 Pulse Oximetry 96 96 95 09/17/19 12:10 09/17/19 12:40 09/17/19 13:40 Temperature 97.4 F L 97.3 F L 97.5 F L Pulse Rate 72 68 71 Respiratory Rate 18 18 18 Blood Pressure 146/68 H 134/69 152/71 H Pulse Oximetry 95 94 98 09/17/19 18:00 09/17/19 21:53 09/17/19 22:43 Temperature 97.4 F L 97.1 F
--- NOTE | 2019-09-18 10:12 | WPDANESPN ---
Anes - Prog Note Post-Op Date/Time: 09/18/19 10:12 Cardiovascular status: normal Respiratory status: normal Airway patency: baseline Mental status: baseline Post-Op hydration status: normal Vital Signs: Last Vital Signs Temp 36.4 C 09/18/19 10:05 Pulse 72 09/18/19 10:05 Resp 14 09/18/19 10:05 BP 125/56 L 09/18/19 10:05 Pulse Ox 90 09/18/19 10:05 I/O: Intake & Output 09/17/19 09/18/19 09/18/19 23:59 07:59 15:59 Intake Total 1800 650 240 Output Total 1000 Balance 1800 -350 240 Laboratory Tests 09/18/19 05:47 09/18/19 05:47 09/17/19 09/17/19 09/17/19 10:47 12:20 16:22 WBC RBC Hgb Hct MCV MCH MCHC RDW Plt Count MPV Sodium Potassium Chloride Carbon Dioxide BUN Creatinine Estim Creat Clear Calc Estimated GFR Glucose POC Capillary Glucose 183 H 173 H 156 H Calcium 09/17/19 09/18/19 09/18/19 21:03 05:47 05:47 WBC 7.2 RBC 3.03 L Hgb 8.6 L Hct 28.0 L MCV 92.4 MCH 28.4 MCHC 30.7 L RDW 15.4 H Plt Count 240 MPV 10.3 Sodium 134 L Potassium 3.7 Chloride 102 Carbon Dioxide 28 BUN 12 D Creatinine 0.80 Estim Creat Clear Calc 79 Estimated GFR > 60 Glucose 113 H POC Capillary Glucose 246 H Calcium 8.1 L 09/18/19 07:39 WBC RBC Hgb Hct MCV MCH MCHC RDW Plt Count MPV Sodium Potassium Chloride Carbon Dioxide BUN Creatinine Estim Creat Clear Calc Estimated GFR Glucose POC Capillary Glucose 136 H Calcium Post-procedural complaints: none Patient Feedback: Patient satisfied with anesthetic care.
[2019-09-18 11:55] LABS: Glucose Point of Care 181 (65-105)
--- NOTE | 2019-09-18 12:31 | PM.IMCN ---
Assessment and Plan Assessment and plan (1) Incisional hernia: Qualifiers: Obstruction and gangrene presence: without obstruction or gangrene Qualified Code(s): K43.2 - Incisional hernia without obstruction or gangrene Code(s): K43.2 - Incisional hernia without obstruction or gangrene Status: Acute Assessment and Plan: Postop day 1. Laparoscopic repair of incisional hernia. Doing quite well. 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 Patient relates had CT scan week prior to surgery of [place] with no evidence of recurrence (5) DVT prophylaxis: Code(s): Z29.9 - Encounter for prophylactic measures, unspecified Status: Acute Assessment and Plan: Lovenox Q 12 per surgery (6) Anemia: Code(s): D64.9 - Anemia, unspecified Status: Acute Assessment and Plan: His hemoglobin has been essentially same for several months. And the GI bleed and July and had been treated for lymphoma prior to that. Will recheck iron studies this see if needs any further supplements and also B12 HPI Data of Consult Consult date: 09/18/19 Requesting Physician: Veto Lee MD Primary Care Provider: Kun Oconnor MD Consult Narrative Narrative: Date of visit 09/17. Konrad Nieto is a 73 year old male admitted for elective repair of incisional hernia. Patient has type 2 diabetes as well as hypertension we are called to see him for evaluation treatment of the same. He is postop day 1. Doing well. Minimal pain no shortness of breath. He has been up and plan is to increase activity and possible discharge early as tomorrow. He is tolerating the diet well. 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 G[place]am. Type 2 diabetes mellitus without complications Surgical History Surgical History History of transurethral resection of prostate Status post exploratory laparotomy (~12/2018) With excisional biopsy of periaortic and periportal lymphadenopathy, histology showing marginal zone lymphoma. Wound dehiscence, traumatic injury repair (~01/2019) Repair of abdominal wound fascial dehiscence with evisceratio
[2019-09-18] MEDS: ACETAMINOPHEN 500 MG TABLET PO (14:21)
[2019-09-18 16:30] LABS: Glucose Point of Care 119 (65-105)
[2019-09-18] MEDS: SENNA/DOCUSATE SODIUM TABLET 2 TAB PO (20:19)
[2019-09-18 22:23] LABS: Glucose Point of Care 73 (65-105)
[2019-09-18 22:24] LABS: Glucose Point of Care 59 (65-105)
[2019-09-19] VITALS (10 sets, daily range): BP systolic 145–160; BP diastolic 72–85; PULSE 70–82; RESP 12–18; TEMP 36.4–36.8; O2SAT 91–99
[2019-09-19] MEDS: IBUPROFEN IV 800 MG/200 ML 800 MG/200 ML BAG 400 MG IVPB ×2 (00:11→06:03)
[2019-09-19 05:43] LABS: Reticulocyte Hemoglobin Conten 29.6 pg (28.2-35.7); Reticulocyte Percent 1.47 % (0.7-4.3); Reticulocytes Absolute 0.04 B/L (32.2-175.7)
[2019-09-19 05:57] LABS: Blood Urea Nitrogen 10 mg/dL (9-20); Calcium 8.2 mg/dL (8.4-10.2); Carbon Dioxide 29 mmol/L (22-30); Chloride 103 mmol/L (98-107); Estimated CRCL calculation 89 ml/min; Estimated Glomerular Filt Rate > 60; Glucose 87 mg/dL (75-110); Potassium 3.6 mmol/L (3.4-5.0); Sodium 137 mmol/L (137-145)
[2019-09-19 06:25] LABS: Iron 27 ug/dL (49-181)
[2019-09-19 06:35] LABS: Percent Iron Saturation 8 % (20-50)
--- NOTE | 2019-09-19 07:00 | PM.PNGS ---
Progress Note: A&P Assessment and Plan (1) Incisional hernia: Qualifiers: Obstruction and gangrene presence: without obstruction or gangrene Qualified Code(s): K43.2 - Incisional hernia without obstruction or gangrene Code(s): K43.2 - Incisional hernia without obstruction or gangrene Status: Chronic Assessment and Plan: repair intact and pain is minimal. He is taking a regular diet without difficulty. Still no bowel movement. Patient still on a small amount of oxygen per nasal cannula. His intake and output is markedly positive. Will go ahead and give him a dose of Bumex today. Increase ambulation. Probably can go home tomorrow. (2) Anemia: Code(s): D64.9 - Anemia, unspecified Status: Chronic Assessment and Plan: Pending CBC today. We had almost no blood loss during surgery. I think his anemia is primarily residual from his bleeding duodenal ulcer as well as the fluid hydration he has received during his admission. No evidence of bleeding. (3) Type 2 diabetes mellitus without complications: Qualifiers: Diabetes mellitus long-term insulin use: without long-term use Qualified Code(s): E11.9 - Type 2 diabetes mellitus without complications Code(s): E11.9 - Type 2 diabetes mellitus without complications Status: Chronic Assessment and Plan: Hospitalist service following. Appreciate their help. Subjective Subjective Date/Time Seen: 09/19/19 07:00 Post Op day: 2 Patient reports: no new complaints, pain is less, tolerating a regular diet, voiding w/o difficulty, no bowel movement, shortness of breath ( still on some oxygen for low saturations) and afebrile Exam Const: General: comfortable and no acute distress; No confusion Orientation/consciousness: patient oriented x3 and No confusion GI: GI Palp: Yes Soft to palpation, Yes Tenderness to palpation present (GI), No Guarding due to palpation present (GI) and No Rebound tenderness present Auscultation: normal bowel sounds Neuro: General: patient oriented x3, no focal motor deficits and No confusion Extrem: General: no calf tenderness and no edema Psych: Affect: normal affect Insight: Good insight present (Psych) Judgement: Good judgement present (Psych) Objective Data Vital Signs Vital Signs: Vital Signs - 24 hr 09/18/19 08:00 09/18/19 10:05 07/16/20 10:54 Temperature 36.4 C Pulse Rate 74 72 Respiratory Rate 20 14 Blood Pressure 125/56 L Pulse Oximetry 96 90 83 L 09/18/19 14:03 09/18/19 18:00 09/18/19 20:18 Temperature 36.8 C 36.6 C 36.7 C Pulse Rate 70 72 72 Respiratory Rate 14 14 12 Blood Pressure 130/63 131/43 L 148/79 H Pulse Oximetry 90 91 95 09/19/19 00:47 09/19/19 05:02 Temperature 36.7 C 36.7 C Pulse Rate 76 79 Respiratory Rate 12 12 Blood Pressure 153/72 H 160/83 H Pulse Oximetry 95 97 Intake/Output Intake/Output: Intake & Output 09/16/19 09/17/19 09/18/19 09/19/19 23:59 23:59 23:59 23:59 Intake Total 2490 1770 450 Output Total 60 1000 1100 Balance 2430 770 -650 Meds/Results Medications: Active Medications Generic Name Dose Route Start Last Admin Trade Name Freq PRN Reason Stop Dose Admin Acetaminophen 500 mg 09/17/19 11:38 09/18/19 14:21 Tylenol Tablet PO 500 mg Q6H PRN Administration Mild Pain (1-3) or Fever Hydrocodone Bitart/Acetaminophen 1 tab 09/17/19 11:38 09/17/19 15:06 [place] 10-325 Mg PO 1 tab Q6H PRN Administration Pain Rated 7-10 Hydrocodone Bitart/Acetaminophen 1 tab 09/17/19 11:38 [place] 5-325 Mg PO Q4H PRN Pain Rated 4-6 Atenolol 50 mg 09/18/19 09:00 09/18/19 08:13 Tenormin PO 50 mg DAILY [place] Administration Atorvastatin Calcium 10 mg 09/18/19 09:00 09/18/19 08:13 Lipitor PO 10 mg DAILY [place] Administration Bumetanide 2 mg 09/19/19 06:58 Bumex Inj IV PUSH 09/19/19 06:59 ONCE ONE Dextrose 12.5 gm 09/17/19 11:38 Dextro
[2019-09-19 08:24] LABS: Glucose Point of Care 87 (65-105)
[2019-09-19] MEDS: polyethylene glycoL 3350 17 GM POWD.PACK PO (08:29)
[2019-09-19] MEDS: BUMETANIDE INJ 2.5 MG/10 ML VIAL 2 MG IVPB (08:30)
[2019-09-19] MEDS: IRON SUCROSE COMPLEX 400 MG in SODIUM CHLORIDE 0.9% IV 250 ML 108 MG IVPB (08:32)
[2019-09-19] MEDS: atenoloL 50 MG TABLET PO (08:34)
[2019-09-19] MEDS: ENOXAPARIN 40 MG/0.4 ML SYRINGE SUB-Q (08:34)
[2019-09-19] MEDS: LOSARTAN POTASSIUM 50 MG TABLET PO (08:34)
[2019-09-19] MEDS: PIOGLITAZONE HCL 45 MG TABLET PO (08:38)
[2019-09-19] MEDS: POTASSIUM CHLORIDE 20 MEQ TABLET.ER PO ×2 (08:38→16:57)
[2019-09-19] MEDS: metFORMIN HCL 500 MG TABLET PO ×2 (08:38→16:58)
[2019-09-19] MEDS: ATORVASTATIN 10 MG TABLET PO (08:38)
[2019-09-19] MEDS: GLIMEPIRIDE 1 MG TABLET PO (08:38)
[2019-09-19] MEDS: PANTOPRAZOLE 40 MG TABLET PO (08:38)
[2019-09-19 11:55] LABS: Glucose Point of Care 98 (65-105)
--- NOTE | 2019-09-19 13:35 | PM.DS ---
DS: Admitting Diagnosis Admitting Diagnosis Admitting Diagnosis: multiple incisional hernias history bleeding duodenal ulcer iron deficiency anemia secondary to GI bleed history mantle cell lymphoma essential hypertension type 2 diabetes DS: Discharge Diagnosis Discharge Diagnosis (1) Incisional hernia: Qualifiers: Obstruction and gangrene presence: without obstruction or gangrene Qualified Code(s): K43.2 - Incisional hernia without obstruction or gangrene Code(s): K43.2 - Incisional hernia without obstruction or gangrene Status: Chronic Assessment and Plan: patient underwent laparoscopic repair of multiple incisional hernias on September 17, 2019. His incision was for a her retroperitoneal lymph node biopsy done over a year ago. The biopsies did show lymphoma. He has done well after surgery. (2) Anemia: Code(s): D64.9 - Anemia, unspecified Status: Chronic Assessment and Plan: No blood loss at surgery but did have some drop in his H&H due to postoperative fluids and dilutional effects. (3) Benign non-nodular prostatic hyperplasia without lower urinary tract symptoms: Code(s): N40.0 - Benign prostatic hyperplasia without lower urinary tract symptoms Status: Acute (4) Type 2 diabetes mellitus without complications: Qualifiers: Diabetes mellitus custodial insulin use: without keno terminal operator use Qualified Code(s): E11.9 - Type 2 diabetes mellitus without complications Code(s): E11.9 - Type 2 diabetes mellitus without complications Status: Chronic Assessment and Plan: Hospitalist Service saw and assisted in postoperative medical management. (5) Essential (primary) hypertension: Code(s): I10 - Essential (primary) hypertension Status: Acute DS: Summary Time Spent with Patient Time attestation: Total time spent providing and/or coordinating discharge services: Patient underwent laparoscopic repair of multiple incisional hernias with a large piece of 25 x 20 Symbotex mesh on 09/17/2019. Postoperatively, his Richardson catheter was removed on day 1. He was able to void without difficulty. His pain slowly improved. On postop day 2. He was given some diuretics and his oxygen was able to be weaned. He was seen and his postop medical problems were managed by the hospitalist service. He had no evidence of recurrent GI bleeding. He was comfortable on oral analgesics, off oxygen and able to be discharged on 09/20/2019. Exam GI: Inspection: incision ( All incisions healing well.) and no visible herniation GI Palp: Yes Soft to palpation, Yes Tenderness to palpation present (GI) ( Mild appropriate tenderness) and No Hernia present Auscultation: normal bowel sounds DS: Data Data Completed and Pending Labs on day of discharge: Labs from last 24 hours 09/19/19 09/19/19 09/19/19 11:09 07:39 05:24 Absolute Retic Percent Retic Immature Retic Fraction Retic Hgb Content Sodium Potassium Chloride Carbon Dioxide BUN Creatinine Estim Creat Clear Calc Estimated GFR Glucose POC Capillary Glucose 98 87 Calcium Iron 27 L TIBC 321 % Saturation 8 L Ferritin 12.00 Vitamin B12 09/19/19 09/19/19 09/18/19 05:24 05:24 22:13 Absolute Retic 0.04 L Percent Retic 1.47 Immature Retic Fraction 16.0 H Retic Hgb Content 29.6 Sodium 137 Potassium 3.6 Chloride 103 Carbon Dioxide 29 BUN 10 Creatinine 0.70 Estim Creat Clear Calc 89 Estimated GFR > 60 Glucose 87 POC Capillary Glucose 73 Calcium 8.2 L Iron TIBC % Saturation Ferritin Vitamin B12 419.0 09/18/19 09/18/19 20:26 16:28 Absolute Retic Percent Retic Immature Retic Fraction Retic Hgb Content Sodium Potassium Chloride Carbon Dioxide BUN Creatinine Estim Creat Clear Calc Estimated GFR Glucose POC Capillary Glucose
--- NOTE | 2019-09-19 15:01 | PM.IMPN ---
Progress Note: A&P Assessment and Plan (1) Incisional hernia: Qualifiers: Obstruction and gangrene presence: without obstruction or gangrene Qualified Code(s): K43.2 - Incisional hernia without obstruction or gangrene Code(s): K43.2 - Incisional hernia without obstruction or gangrene Status: Chronic Assessment and Plan: Postop day 2. Laparoscopic repair of incisional hernia. Doing quite well. Increase activity per surgery (2) Essential hypertension: Code(s): I10 - Essential (primary) hypertension Status: Acute Assessment and Plan: Blood pressure doing well with the beta-kita and ARB and will continue the same (3) Type 2 diabetes mellitus without complications: Qualifiers: Diabetes mellitus skilled nursing insulin use: without skilled nursing use Qualified Code(s): E11.9 - Type 2 diabetes mellitus without complications Code(s): E11.9 - Type 2 diabetes mellitus without complications Status: Chronic Assessment and Plan: FBS only 87 today and A1c in July was 6.5. 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 Patient relates had CT scan week prior to surgery of [place] with no evidence of recurrence (5) DVT prophylaxis: Code(s): Z29.9 - Encounter for prophylactic measures, unspecified Status: Acute Assessment and Plan: Lovenox Q 12 per surgery (6) Anemia: Code(s): D64.9 - Anemia, unspecified Status: Chronic Assessment and Plan: His hemoglobin has been essentially same for several months. Had GI bleed in July and had been treated for lymphoma prior to that. iron studies compatible with iron deficiency anemia with ferritin only 13. Will give IV iron today and 09/19 before probable discharge as per surgery it did not feel there is any acute blood loss at this time ,is more chronic Subjective Date/time seen: 09/19/19 15:01 Interval history: Date of visit 09/18. [age] hypertensive type 2 diabetic elective admission for incisional hernia repair. Postop day 2. And feeling better. Tolerating diet minimal pain. Exam Narrative: Exam Narrative: Blood pressure 144/76 pulse is 74 respirations 16 per minutes statin 95% 1L NC Pupils equal reactive to light sclera anicteric Mouth normal several missing teeth Neck is supple Lungs clear CV regular rate rhythm no murmurs or gallops Abdomen is soft nontender, bowel sounds normal active several small laparoscopic incisions healing well Extremities without edema dorsalis pedis posterior tibial 2+ Neuro alert pleasant cooperative no focal deficits Objective Data Vital Signs Vital Signs: Vital Signs - 24 hr 09/18/19 18:00 09/18/19 20:18 09/19/19 00:47 Temperature 36.6 C 36.7 C 36.7 C Pulse Rate 72 72 76 Respiratory Rate 14 12 12 Blood Pressure 131/43 L 148/79 H 153/72 H Pulse Oximetry 91 95 95 09/19/19 05:02 09/19/19 07:43 09/19/19 09:39 Temperature 36.7 C Pulse Rate 79 79 Respiratory Rate 12 12 Blood Pressure 160/83 H Pulse Oximetry 97 97 91 09/19/19 10:00 09/19/19 14:00 Temperature 36.4 C 36.8 C Pulse Rate 73 75 Respiratory Rate 18 18 Blood Pressure 148/85 H 145/76 H Pulse Oximetry 97 93 Intake/Output Intake/Output: Intake & Output 09/16/19 09/17/19 09/18/19 09/19/19 23:59 23:59 23:59 23:59 Intake Total 2490 1770 930 Output Total 60 1000 1100 Balance 2430 770 -170 Meds/Results Medications: Active Medications Generic Name Dose Route Start Last Admin Trade Name Freq PRN Reason Stop Dose Admin Acetaminophen 500 mg 09/17/19 11:38 09/18/19 14:21 Tylenol Tablet PO 500 mg Q6H PRN Administration Mild Pain (1-3) or Fever Hydrocodone Bitart/Acet
--- NOTE | 2019-09-19 17:54 | PC.NURSE ---
Refused the chair and bed alarms.
[2019-09-19 18:30] LABS: Glucose Point of Care 120 (65-105)
[2019-09-19] MEDS: SENNA/DOCUSATE SODIUM TABLET 2 TAB PO (20:27)
[2019-09-19 20:47] LABS: Glucose Point of Care 82 (65-105)
[2019-09-20 06:00] VITALS: BP 147/81; PULSE 85; RESP 16; TEMP 36.6; O2SAT 94
[2019-09-20 08:06] LABS: Glucose Point of Care 128 (65-105)
[2019-09-20] MEDS: IRON SUCROSE COMPLEX 400 MG in SODIUM CHLORIDE 0.9% IV 250 ML 108 MG IVPB (08:25)
[2019-09-20 08:26] VITALS: PULSE 88
[2019-09-20] MEDS: ENOXAPARIN 40 MG/0.4 ML SYRINGE SUB-Q (08:26)
[2019-09-20] MEDS: atenoloL 50 MG TABLET PO (08:26)
[2019-09-20] MEDS: ATORVASTATIN 10 MG TABLET PO (08:26)
[2019-09-20] MEDS: LOSARTAN POTASSIUM 50 MG TABLET PO (08:26)
[2019-09-20] MEDS: POTASSIUM CHLORIDE 20 MEQ TABLET.ER PO (08:26)
[2019-09-20] MEDS: metFORMIN HCL 500 MG TABLET PO (08:26)
[2019-09-20] MEDS: PIOGLITAZONE HCL 45 MG TABLET PO (08:27)
[2019-09-20] MEDS: PANTOPRAZOLE 40 MG TABLET PO (08:27)
[2019-09-20] MEDS: polyethylene glycoL 3350 17 GM POWD.PACK PO (08:30)
--- NOTE | 2019-09-20 10:40 | PM.IMPN ---
Progress Note: A&P Assessment and Plan (1) Incisional hernia: Qualifiers: Obstruction and gangrene presence: without obstruction or gangrene Qualified Code(s): K43.2 - Incisional hernia without obstruction or gangrene Code(s): K43.2 - Incisional hernia without obstruction or gangrene Status: Chronic Assessment and Plan: Postop day 3. Laparoscopic repair of incisional hernia. Doing quite well. 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 Patient relates had CT scan week prior to surgery of [place] with no evidence of recurrence (5) DVT prophylaxis: Code(s): Z29.9 - Encounter for prophylactic measures, unspecified Status: Acute Assessment and Plan: Lovenox Q 12 per surgery while inpatient (6) Anemia: Code(s): D64.9 - Anemia, unspecified Status: Chronic Assessment and Plan: His hemoglobin has been essentially same for several months. Had GI bleed in July and had been treated for lymphoma prior to that. iron studies compatible with iron deficiency anemia with ferritin only 13. gave IV iron 400 mg 09/18 and today before probable discharge(800 mg total) as per surgery I did not feel there is any acute blood loss at this time ,is more chronic \ repeat cbc 3 weeks and follow up with dr Oconnor Subjective Date/time seen: 09/20/19 10:40 Interval history: Date of visit 7/18. [age] old hypertensive type 2 diabetic elective admission for incisional hernia repair. Postop day 3. And feeling better. Tolerating diet minimal pain. up and about Exam Narrative: Exam Narrative: Blood pressure 142/82 pulse is 78 respirations 16 per minutes staturating 95% RA Pupils equal reactive to light sclera anicteric Mouth normal several missing teeth Neck is supple Lungs clear CV regular rate rhythm no murmurs or gallops Abdomen is soft nontender, bowel sounds normal active several small laparoscopic incisions healing well Extremities without edema dorsalis pedis posterior tibial 2+ Neuro alert pleasant cooperative no focal deficits Objective Data Vital Signs Vital Signs: Vital Signs - 24 hr 09/19/19 14:00 09/19/19 15:30 09/19/19 15:55 Temperature 36.8 C Pulse Rate 75 Respiratory Rate 18 Blood Pressure 145/76 H Pulse Oximetry 93 92 92 09/19/19 18:00 09/19/19 22:00 09/20/19 06:00 Temperature 36.5 C 36.8 C 36.6 C Pulse Rate 70 82 85 Respiratory Rate 18 16 16 Blood Pressure 146/79 H 156/78 H 147/81 H Pulse Oximetry 99 91 94 09/20/19 08:26 Temperature Pulse Rate 88 Respiratory Rate Blood Pressure Pulse Oximetry Intake/Output Intake/Output: Intake & Output 09/17/19 09/18/19 09/19/19 09/20/19 23:59 23:59 23:59 23:59 Intake Total 2490 1770 1890 690 Output Total 60 1000 4350 600 Balance 2430 770 -2460 90 Meds/Results Medications: Active Medications Generic Name Dose Route Start Last Admin Trade Name Freq PRN Reason Stop Dose Admin
== END 2019-09-20 11:50 | disposition home or self-care (01) ==
LOC: ANHSURGERY 15:09 → ANH2MED 15:09
PROVIDERS: Internal Medicine; Admitting Provider Surgery; PCP Internal Medicine; Visit Provider Surgery
PROC: (CPT 49654; principal; 2019-09-17 08:30)
DX: K43.2 Incisional hernia without obstruction or gangrene (principal); E11.9 Type 2 diabetes mellitus without complications; I10 Essential (primary) hypertension; C85.83 Other specified types of non-Hodgkin lymphoma, intra-abdominal lymph nodes; D50.0 Iron deficiency anemia secondary to blood loss (chronic); E78.5 Hyperlipidemia, unspecified; Z79.84 Long term (current) use of oral hypoglycemic drugs; Z79.899 Other long term (current) drug therapy; Z86.010 Personal history of colon polyps; Z87.11 Personal history of peptic ulcer disease; Z92.21 Personal history of antineoplastic chemotherapy
CPT/HCPCS: 49654; 36415; 80048; 82607; 82728; 83540; 83550; 85027; 85046; 96365; 96366; 96367; 96372; 96375; 96376; A9270; C1781; C9113; G0378; G0379; J0690; J1650; J1741; J1756; J2270; J2405; J2704; J2710; J3010; J7030; J7050; J7120

== ENCOUNTER 2019-10-01 12:31 | Outpatient (CLI) | payer OTHER, SELFPAY ==
[2019-10-01 13:02] LABS: Basophils Absolute Auto 0.1 K/mm3 (0.0-0.1); Basophils Percent Auto 0.9 % (0.2-1.2); Eosinophils Absolute Auto 1.2 K/mm3 (0-0.3); Eosinophils Percent Auto 15.2 % (0-4.4); Hematocrit 31.5 % (42.0-52.0); Immature Granulocyte Absolute 0.05 K/mm3 (0.00-0.031); Immature Granulocyte Percent A 0.6 % (0-0.5); Lymphocytes Absolute Auto 1.61 K/mm3 (0.9-3.2); Lymphocytes Percent Auto 19.7 % (18.3-44.2); Mean Corpuscular HGB Conc 31.7 g/dl (32-36); Mean Corpuscular Hemoglobin 29.3 pg (26-34); Mean Corpuscular Volume 92.4 fl (80-100); Mean Platelet Volume 9.5 fl (7.4-10.4); Monocytes Absolute Auto 0.7 K/mm3 (0.1-0.6); Monocytes Percent Auto 7.9 % (2.6-8.5); Neutrophils Absolute Auto 4.6 K/mm3 (1.3-6.7); Neutrophils Percent Auto 55.7 % (45.5-73.1); Platelet Count Result 370 k/mm3 (150-375); Red Blood Count 3.41 M/mm3 (4.6-6.20); Red Cell Distribution Width 17.9 % (11.5-14.5); White Blood Count 8.2 K/mm3 (4.5-10.0)
== END 2019-10-01 12:32 | disposition home or self-care (01) ==
PROVIDERS: PCP Internal Medicine; Visit Provider Internal Medicine
DX: D64.9 Anemia, unspecified (principal)
CPT/HCPCS: 36415; 85025

== ENCOUNTER 2019-10-23 08:00 | Outpatient (CLI) | payer OTHER, SELFPAY ==
[2019-10-23 08:31] LABS: Basophils Absolute Auto 0.1 K/mm3 (0.0-0.1); Basophils Percent Auto 0.9 % (0.2-1.2); Eosinophils Absolute Auto 0.3 K/mm3 (0-0.3); Eosinophils Percent Auto 5.5 % (0-4.4); Hematocrit 36.4 % (42.0-52.0); Hemoglobin 11.6 g/dL (14.0-18.0); Immature Granulocyte Absolute 0.01 K/mm3 (0.00-0.031); Immature Granulocyte Percent A 0.2 % (0-0.5); Lymphocytes Absolute Auto 1.44 K/mm3 (0.9-3.2); Lymphocytes Percent Auto 25.4 % (18.3-44.2); Mean Corpuscular HGB Conc 31.9 g/dl (32-36); Mean Corpuscular Hemoglobin 29.7 pg (26-34); Mean Corpuscular Volume 93.1 fl (80-100); Mean Platelet Volume 9.9 fl (7.4-10.4); Monocytes Absolute Auto 0.6 K/mm3 (0.1-0.6); Monocytes Percent Auto 10.7 % (2.6-8.5); Neutrophils Absolute Auto 3.3 K/mm3 (1.3-6.7); Neutrophils Percent Auto 57.3 % (45.5-73.1); Platelet Count Result 237 k/mm3 (150-375); Red Blood Count 3.91 M/mm3 (4.6-6.20); White Blood Count 5.7 K/mm3 (4.5-10.0)
== END 2019-10-23 08:01 | disposition home or self-care (01) ==
PROVIDERS: PCP Internal Medicine; Visit Provider Surgery
DX: D50.9 Iron deficiency anemia, unspecified (principal)
CPT/HCPCS: 36415; 85025

== ENCOUNTER 2022-04-03 15:19 | Emergency (ER) | payer OTHER, SELFPAY ==
[2022-04-03] VITALS (28 sets, daily range): BP systolic 108–183; BP diastolic 72–91; PULSE 73–85; RESP 12–27; TEMP 36.1–37; O2SAT 91–100
--- NOTE | ~2022-04-03 | CT_ITS ---
EXAMINATION: CTA chest PE protocol DATE: 04/03/2022 17:19 INDICATION: dyspnea, lymphoma TECHNIQUE: Computed tomography angiography (CTA) of the chest was performed with 100 mL Omnipaque-350 intravenous contrast timed to evaluate the pulmonary arteries. Coronal maximum intensity projection 3D-reconstructions were created by the technologist. The dose-length product (DLP) was 282.35 mGy-cm. Automated exposure control and iterative reconstruction technique were employed. COMPARISON: None. FINDINGS: Lung parenchyma and airways: Stable pulmonary nodules.. Pleura: Unremarkable. Thoracic inlet, axillae and chest wall: Unremarkable. Thoracic aorta: Mild arch ectasia and calcification. Mediastinum: Bilateral hilar and mediastinal lymphadenopathy. Heart and pericardium: Cardiomegaly. No pericardial effusion. Coronary artery calcifications: Mild. Upper abdomen: No significant finding. Bones: No acute osseous finding. Pulmonary arteries: Study quality: Degraded by motion, particularly in the left lower lobe, such that subsegmental and non-occlusive segmental emboli could be missed. No pulmonary emboli detected. IMPRESSION: Limited evaluation, such that nonocclusive segmental or subsegmental emboli could be missed, primaril y within the left lower lobe. Within that constraint, no CT evidence of acute pulmonary embolus. Bila teral hilar and mediastinal lymphadenopathy. Reviewed, dictated and finalized at location K. C PROGRAMMER IMPRESSION: Limited evaluation, such that nonocclusive segmental or subsegmental emboli cou ld be missed, primarily within the left lower lobe. Within that constraint, no CT evidence of acute pulmonary embolus. Bilateral hilar and mediastinal lymphad enopathy.
--- NOTE | ~2022-04-03 | XR_ITS ---
EXAMINATION: XR chest 2V DATE: 04/03/2022 16:00 INDICATION: Cough and shortness of breath TECHNIQUE: PA and lateral views of the chest are obtained. COMPARISON: 01/01/2019 FINDINGS: There are minimal airspace opacities of the right lung base. No pleural effusion or pneumot horax. The cardiomediastinal silhouette is normal. There is mild thoracic spondylosis. IMPRESSION: 1. Minimal right basilar airspace opacity, consistent with atelectasis versus pneumonia. Reviewed, dictated and finalized at location B. GEMENT TRAINEE MARKETING IMPRESSION: 1. Minimal right basilar airspace opacity, consistent with atelectasis versus p neumonia.
--- NOTE | 2022-04-03 15:24 | ECG_ITS ---
Measurements Intervals [place] Rate: 90 P: 78 MI: 173 QRS: 69 QRSD: 98 T: 73 QT: 363 QTc: 446 Interpretive Statements SINUS RHYTHM LEFT ATRIAL ENLARGEMENT DELAYED PRECORDIAL R/S TRANSITION BASELINE ARTIFACT- V5-V6 BORDERLINE ECG COMPARED TO ECG 07/18/2019 09:16:53 NO SIGNIFICANT CHANGES Electronically Signed On 04-04-2022 6:47:30 BACK END ARCHITECT by Storm Gutierrez D.O.
--- NOTE | 2022-04-03 15:41 | ED.SOB ---
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 Patient states that he has felt unwell over the past week with increasing cough and sputum production. Patient denies hemoptysis. He reports associated shortness of breath that is worsens with exertional activity. He denies any significant chest pain or pleuritic pain. He denies fever, chills, nausea or vomiting. Denies abdominal pain but reports decreased appetite. Patient denies any leg swelling or calf pain. Patient receives his chemotherapy at [facility], oncologist is Dr. Smith. Patient denies recent sick contacts. No known history of recent COVID. Related Data Home Medications Medication Instructions Recorded Confirmed blood sugar diagnostic #10 ea 03/26/19 03/28/22 lancets 33 gauge (OneTouch Delica #100 ea 03/26/19 03/28/22 Lancets) tadalafil 20 mg tablet (Cialis) 20 mg PO DAILY PRN Erectile 03/26/19 03/28/22 Dysfunction Allergies Allergy/AdvReac Type Severity Reaction Status Date / Time No Known Allergies Allergy Verified 03/28/22 16:43 Review of Systems Review of Systems: CONSTITUTIONAL: Denies fever, chills, or sweats. Reports fatigue EYES: Denies visual changes, redness, or discharge. ENT: Denies rhinorrhea, congestion, sore throat, or otalgia. CARDIOVASCULAR: Denies chest pain, palpitations, or edema. RESPIRATORY: Reports cough and dyspnea GASTROINTESTINAL: Denies abdominal pain, nausea, vomiting, or diarrhea. Reports decreased appetite GENITOURINARY: Denies dysuria or hematuria. SKIN: Denies rash or itching. MUSCULOSKELETAL: Denies back pain, joint pain, or myalgia. NEUROLOGIC: Denies headache, numbness, generalized weakness PMFSH Past Medical History Medical History (Updated 04/03/22 @ 21:02 by Lillian Mcadams MD) Acute blood loss anemia Benign prostatic hyperplasia Chronic anemia Colon polyps Duodenal ulcer Dyslipidemia Essential hypertension Ganglion cyst of joint of finger of left hand GI bleed due to NSAIDs Incisional hernia Marginal zone lymphoma Treated with chemotherapy at [facility] in [place] per Dr. Gresham. Type 2 diabetes mellitus without complications Surgical History Surgical History History of incisional hernia repair laparoscopic repair of multiple incisional hernia with 25x20 cm Symbotex mesh 09/17/19 History of transurethral resection of prostate Status post exploratory laparotomy (~12/2018) With excisional biopsy of periaortic and periportal lymphadenopathy, histology showing marginal zone lymphoma. Wound dehiscence, traumatic injury repair (~01/2019) Repair of abdominal wound fascial dehiscence with evisceration. Family History Family History Father Acute myocardial infarction Sibling Cerebrovascular accident Family history of malignant neoplasm of brain Mother Family history of congestive heart failure Sibling Lung cancer Social History Social History Social History: The patient is and lives in his own home in [place]. He has 3 biological children and 2 step children. 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 He is a lifelong nonsmoker and denies alcohol and drug abuse. He designates his daughter, Brisa Brunner, as his surrogate decision maker and he wishes to be a full code. Years smoked: 5 Smoking status: Former smoker Tobacco type: cigarettes Sec
[2022-04-03 16:09] LABS: Basophils Percent Auto 0.5 % (0.2-1.2); Eosinophils Absolute Auto 0.2 K/mm3 (0-0.3); Eosinophils Percent Auto 2.7 % (0-4.4); Hematocrit 37.6 % (42.0-52.0); Hemoglobin 12.2 g/dL (14.0-18.0); Immature Granulocyte Absolute 0.03 K/mm3 (0.00-0.031); Immature Granulocyte Percent A 0.3 % (0-0.5); Lymphocytes Absolute Auto 1.96 K/mm3 (0.9-3.2); Lymphocytes Percent Auto 22.2 % (18.3-44.2); Mean Corpuscular HGB Conc 32.4 g/dl (32-36); Mean Corpuscular Hemoglobin 32.3 pg (26-34); Mean Corpuscular Volume 99.5 fl (80-100); Monocytes Absolute Auto 1.1 K/mm3 (0.1-0.6); Monocytes Percent Auto 12.4 % (2.6-8.5); Neutrophils Absolute Auto 5.5 K/mm3 (1.3-6.7); Neutrophils Percent Auto 61.9 % (45.5-73.1); Platelet Count Result 264 k/mm3 (150-375); Red Blood Count 3.78 M/mm3 (4.6-6.20); Red Cell Distribution Width 14.6 % (11.5-14.5); White Blood Count 8.8 K/mm3 (4.5-10.0)
[2022-04-03 16:24] LABS: Alanine Aminotransferase 16 U/L (6-50); Albumin Level 4.4 g/dL (3.5-5.1); Alkaline Phosphatase 112 U/L (38-126); Anion Gap 8 mmol/L (8-16); Aspartate Amino Transferase 28 U/L (17-59); Bilirubin,Total 0.6 mg/dL (0.2-1.3); Blood Urea Nitrogen 10 mg/dL (9-20); Calcium 9.1 mg/dL (8.4-10.2); Carbon Dioxide 28 mmol/L (22-30); Chloride 92 mmol/L (98-107); Estimated CRCL calculation 80 ml/min; Estimated Glomerular Filt Rate > 60; Glucose 149 mg/dL (65-110); Potassium 4.3 mmol/L (3.4-5.0); Sodium 128 mmol/L (137-145)
[2022-04-03 16:33] LABS: NT Pro B Type Natriuretic Pept 1650 pg/mL (19.9-100); Troponin I < 0.012 ng/mL (0.000-0.034)
[2022-04-03 16:47] LABS: Influenza A QL RT-PCR Negative (Negative); Influenza B QL RT-PCR Negative (Negative); SARS-CoV-2 RNA PCR Negative
[2022-04-03 17:01] LABS: Lactic Acid Reflex 0.9 mmol/L (0.7-2.0)
[2022-04-03 17:19] LABS: Creatine Kinase 148 U/L (55-170)
[2022-04-03 17:48] LABS: CRP 1.6 mg/dL (<1.0)
[2022-04-03 18:04] LABS: Procalcitonin 0.1 ng/mL
[2022-04-03 19:57] LABS: Appearance Urine Clear (Clear); Bilirubin Urine Negative (Negative); Blood Urine Negative (Negative); Color Urine Yellow (Yellow); Glucose Urine UA Negative (Negative); Ketones Urine Negative (Negative); Leukocyte Esterase Ur Negative LEU/UL (Negative); Nitrate Urine Negative (Negative); Protein Urine Negative (Negative); Specific Grav Ur <= 1.005 (1.001-1.035); Urobilinogen Urine 0.2 mg/dL (<2.0); pH Urine 6.5 (5.0-9.0)
[2022-04-03 19:58] LABS: Add Urine Microscopic? NO
--- NOTE | 2022-04-03 20:04 | PCRCNOTE ---
manual percussion bilaterally was performed to help pt cough secretions up.
[2022-04-04 06:09] LABS: Glucose Point of Care 211 mg/dl (65-105)
== END 2022-04-03 22:13 | disposition short-term general hospital (02) ==
PROVIDERS: Emergency Provider Emergency Medicine; PCP Family Medicine
DX: R06.00 Dyspnea, unspecified (principal); R59.1 Generalized enlarged lymph nodes; R59.9 Enlarged lymph nodes, unspecified; E87.1 Hypo-osmolality and hyponatremia; R09.3 Abnormal sputum; C88.4 Extranodal marginal zone B-cell lymphoma of mucosa-associated lymphoid tissue [MALT-lymphoma]; Z20.822 Contact with and (suspected) exposure to COVID-19; I10 Essential (primary) hypertension; E78.5 Hyperlipidemia, unspecified; C85.80 Other specified types of non-Hodgkin lymphoma, unspecified site; N40.0 Benign prostatic hyperplasia without lower urinary tract symptoms; Z90.79 Acquired absence of other genital organ(s); Z86.010 Personal history of colon polyps; R91.8 Other nonspecific abnormal finding of lung field; R94.31 Abnormal electrocardiogram [ECG] [EKG]
CPT/HCPCS: 36415; 71046; 71275; 80053; 81003; 82550; 82948; 83605; 83880; 84145; 84484; 85025; 86140; 87040; 87147; 87181; 87186; 87636; 93005; 96365; 96366; 96367; 96368; 99285; J0456; J0692; J3370; Q9967

== ENCOUNTER 2022-05-02 08:49 | Outpatient (CLI) | payer OTHER, SELFPAY ==
[2022-05-02 19:19] LABS: Cholesterol 125 mg/dL (0-200); HDL Direct 59 mg/dL; Triglycerides 47 mg/dL (<150)
[2022-05-02 19:30] LABS: LDL Cholesterol Direct 47 mg/dL
[2022-05-02 20:57] LABS: Hemoglobin A1C 7.7 % (<5.7)
== END 2022-05-02 08:50 | disposition home or self-care (01) ==
LOC: ANHGOSHLAB 08:51
PROVIDERS: PCP Family Medicine; Visit Provider Family Medicine
DX: E11.9 Type 2 diabetes mellitus without complications (principal); Z13.220 Encounter for screening for lipoid disorders
CPT/HCPCS: 36415; 80061; 83036

== ENCOUNTER 2022-09-19 13:05 | Outpatient (CLI) | payer OTHER, SELFPAY ==
[2022-09-20 01:07] LABS: Hemoglobin A1C 6.1 % (<5.7)
== END 2022-09-19 13:06 | disposition home or self-care (01) ==
LOC: ANHGOSHLAB 13:06
PROVIDERS: PCP Family Medicine; Visit Provider Family Medicine
DX: E11.9 Type 2 diabetes mellitus without complications (principal)
CPT/HCPCS: 36415; 83036

== ENCOUNTER 2023-03-14 11:33 | Outpatient (CLI) | payer OTHER, SELFPAY ==
[2023-03-14 17:54] LABS: Basophils Absolute Auto 0.1 K/mm3 (0.0-0.1); Eosinophils Absolute Auto 0.2 K/mm3 (0-0.3); Eosinophils Percent Auto 3.4 % (0-4.4); Hematocrit 40.5 % (42.0-52.0); Hemoglobin 13.2 g/dL (14.0-18.0); Immature Granulocyte Absolute 0.03 K/mm3 (0.00-0.031); Immature Granulocyte Percent A 0.6 % (0-0.5); Lymphocytes Absolute Auto 0.28 K/mm3 (0.9-3.2); Lymphocytes Percent Auto 5.7 % (18.3-44.2); Mean Corpuscular HGB Conc 32.6 g/dl (32-36); Mean Corpuscular Hemoglobin 34.3 pg (26-34); Mean Corpuscular Volume 105.2 fl (80-100); Mean Platelet Volume 9.7 fl (7.4-10.4); Monocytes Absolute Auto 0.6 K/mm3 (0.1-0.6); Monocytes Percent Auto 11.5 % (2.6-8.5); Neutrophils Absolute Auto 3.9 K/mm3 (1.3-6.7); Neutrophils Percent Auto 77.8 % (45.5-73.1); Platelet Count Result 178 k/mm3 (150-375); Red Blood Count 3.85 M/mm3 (4.6-6.20); Red Cell Distribution Width 14.3 % (11.5-14.5)
[2023-03-14 18:17] LABS: Alanine Aminotransferase 14 U/L (6-50); Albumin Level 4.3 g/dL (3.5-5.1); Alkaline Phosphatase 67 U/L (38-126); Anion Gap 7 mmol/L (8-16); Aspartate Amino Transferase 26 U/L (17-59); Bilirubin,Total 0.7 mg/dL (0.2-1.3); Blood Urea Nitrogen 14 mg/dL (9-20); Calcium 9.3 mg/dL (8.4-10.2); Carbon Dioxide 29 mmol/L (22-30); Chloride 101 mmol/L (98-107); Cholesterol 184 mg/dL (0-200); Estimated Glomerular Filt Rate > 60; Glucose 113 mg/dL (65-110); Potassium 4.9 mmol/L (3.4-5.0); Sodium 137 mmol/L (137-145); Triglycerides 53 mg/dL (<150)
[2023-03-14 18:18] LABS: LDL Cholesterol Direct 60 mg/dL
[2023-03-14 18:20] LABS: HDL Direct 113 mg/dL
[2023-03-14 18:44] LABS: Platelet Estimate Adequate (Adequate)
[2023-03-14 18:45] LABS: Macrocytosis 1+ (NORMAL); Schistocytes None Seen (NORMAL)
[2023-03-14 19:05] LABS: Creatinine Urine 112.8 mg/dL
[2023-03-14 19:11] LABS: MALB Creatinine Ratio 11.3 mg/g (0-30); Microalbumin Urine Random 12.8 mg/L (0-16.7)
[2023-03-14 19:35] LABS: Hemoglobin A1C 6.4 % (<5.7)
== END 2023-03-14 11:34 | disposition home or self-care (01) ==
LOC: ANHGOSHLAB 11:34
PROVIDERS: PCP Family Medicine; Visit Provider Family Medicine
DX: Z13.220 Encounter for screening for lipoid disorders (principal); Z13.228 Encounter for screening for other metabolic disorders; E11.9 Type 2 diabetes mellitus without complications; R53.83 Other fatigue
CPT/HCPCS: 36415; 80053; 80061; 82043; 83036; 85025

== ENCOUNTER 2024-05-22 10:29 | Outpatient (CLI) | payer MEDICARE, SELFPAY ==
--- NOTE | ~2024-05-22 | CT_ITS ---
CT Scan of the Chest without Contrast: Clinical Indication: Lung cancer screening, nicotine dependence Technique: Contiguous sections were acquired throughout the chest without intravenous contrast. Dose reduction technique was used on this scan by utilizing automated exposure control and iterative recon struction technique. The dose-length product (DLP) was 48.25 mGy-cm. COMPARISON: 04/03/2022 Findings: There is no evidence of any significant mediastinal, hilar or axillary lymphadenopathy. The mediastin al soft tissues appear normal. There is no evidence of pleural or pericardial effusion. Calcified right upper lobe granuloma noted anteromedially. Stable 3 mm right middle lobe nodule near the hilum (axial image 77). Additional 3 mm right lower lobe pulmonary nodule is decreased from prior exam (axial image 91).. Moderate to advanced emphysema. Images through the upper abdomen reveal no abnormalities. Impression: Lung RADS 2: Benign appearance. 12 month follow-up screening CT advised. Reviewed, dictated and finalized at [facility]. Impression: Lung RADS 2: Benign appearance. 12 month follow-up screening CT advised.
--- NOTE | ~2024-05-22 | MR_ITS ---
MRI of the brain Clinical History: Other signs and symptoms of cognitive function Technique: Axial and sagittal T1-weighted images were acquired. These were followed by axial T2-weigh tomy, diffusion weighted, gradient, and FLAIR images. Following intravenous administration of 10 cc Pr oHance gadolinium, T1-weighted fat-sat imaging was performed in the axial and coronal planes. Findings: There is no acute infarct, intraventricular hemorrhage or mass lesion. There are extensive chronic white matter changes in the periventricular white matter bilaterally, and in the [place]. Ventricles and subarachnoid spaces are dilated. Orbits are unremarkable. There is right ethmoid sinus disease. Remaining paranasal sinuses and mastoid air cells are clear. Major intracranial flow voids are grossly intact. Sagittal midline structures are intact. No abnormal postcontrast enhancement identified. IMPRESSION: No acute infarct, intracranial hemorrhage, or mass lesion. Severe chronic microvascular ischemic change and moderate generalized atrophy. Reviewed, dictated and finalized at [facility].
== END 2024-05-22 10:30 | disposition home or self-care (01) ==
LOC: MICIMG 10:29
PROVIDERS: PCP Nurse Practitioner; Visit Provider Nurse Practitioner
DX: I67.82 Cerebral ischemia (principal); G31.9 Degenerative disease of nervous system, unspecified; R41.9 Unspecified symptoms and signs involving cognitive functions and awareness; Z12.2 Encounter for screening for malignant neoplasm of respiratory organs; Z87.891 Personal history of nicotine dependence
CPT/HCPCS: 70553; 71271; A9579

== ENCOUNTER 2024-05-26 13:01 | Outpatient (CLI) | payer MEDICARE, SELFPAY ==
--- OUTSIDE RECORDS SUMMARY | 2024-05-26 14:46 | XMS_ITS | Encounter Summary ---
Author Organization [facility] Address [address] [place] [address] Phone Care Team Providers Care Building And Grounds Supervisor Name Role Phone Kun Oconnor MD Primary Care Provider [phone] Chace Newman DO Primary Care Provider [phone] Srini Smith MD Unavailable [phone] Encounter Details Date Type Department Care Team (Latest Contact Info) Description 07/21/2019 Orders Only [facility] Scanning, Provider Social History Tobacco Use Types Packs/Day Years Used Date Smoking Tobacco: Never Smokeless Tobacco: Never Sex and Gender Information Value Date Recorded Sex Assigned at Not on file Legal 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 Gender Identity Not on file Sexual Orientation Not on file documented as of this encounter Plan of Treatment Not on file documented as of this encounter Procedures Procedure Name Priority Date/Time Associated Diagnosis Comments SCAN - LABS 07/21/2019 documented in this encounter Results * SCAN - LABS (07/21/2019) us Provider Scanning Final Result documented in this encounter Visit Diagnoses Not on filedocumented in this encounter Care Teams Building And Grounds Supervisor Relationship Specialty Start Date End Date Kun Oconnor MD [address] [place], [place] [id number] PCP - General 12/29/16 04/03/22 Chace Newman DO [address] [place] [address] PCP - General Family Medicine 04/04/22 Srini Smith MD [address] [facility], [address] [place] [address] Medical Oncologist/Kiss Setter Hand Medical Oncology 04/07/22 documented as of this encounter
--- OUTSIDE RECORDS SUMMARY | 2024-05-26 14:46 | XMS_ITS ---
Author Organization [facility] Address [address] [facility] [place] [address] Care Team Providers Care Coal Tram Driver Name Role Phone Chace Newman DO Primary Care Provider [phone] Srini Smith MD Unavailable [phone] Active Problems Problem Noted Date Diagnosed Date Pneumonia 04/05/2022 Assessment & Plan (04/06/2022 12:28 PM GIZZARD PULLER): Pt presented with productive cough and malaise. Ddx bacterial pna vs viral viral - COVID/Flu neg at OSH. RVP here negative. Sputum Pneumonia PCR contaminated. - Bcx x 2 NGTD - Levofloxacin (04/04) -> continue augmentin (04/04- EOT 04/08) - On 2L. Will wean to 1L with plan to wean off O2 today. - Clinical status improving. Pt wants to discharge today. Could potentially go home if does well off supplemental O2. Hypertension 04/05/2022 Assessment & Plan (04/05/2022 7:59 AM GIZZARD PULLER): - Home losartan and atenolol Elevated HDL 04/05/2022 Assessment & Plan (04/05/2022 8:01 AM GIZZARD PULLER): - Home atorvastatin Diabetes mellitus type 2 without retinopathy Assessment & Plan (10/01/2019 9:02 AM CDT): -- No background diabetic retinopathy (BIOMEDICAL ANALYTICAL SCIENTIST) -- No neovascularization of the disc (NVD), neovascularization elsewhere (NVE), NVI, CSME both eyes (OU) -- Strict BG control, monitor yearly Combined form of age-related cataract, both eyes 10/01/2019 Assessment & Plan (10/01/2019 9:02 AM CDT): -- NVS, monitor Routine eye exam 10/01/2019 Assessment & Plan (10/01/2019 9:03 AM CDT): -- No change in MRx, New SRx PRN Ace marginal zone B-cell lymphoma (CMS/HCC) Assessment & Plan (04/06/2022 12:29 PM GIZZARD PULLER): - s/p Rituxan x4 () - Now with PD with likely left kidney involvement - BR x6C held in setting of infection, restart once infection resolved - Follow up with Dr Smith outpt Type 2 diabetes mellitus without complication Encounter for colonoscopy du e to history of adenomatous colonic polyps 04/16/2018 Overview (04/16/2018): Added automatically from request for surgery [id number] Ganglion of hand 01/16/2017 Current Treatment and Therapy Plans No current plan information found. Past Treatment and Therapy Plans Line Care Plan Name Start Date Discontinue Date Treatment Medications Discontinue Reason Plan Provider IV Maintenance Therapy Plan 04/13/2022 10/05/2022 No medications scheduled. Therapy Complete Srini Smith MD Oncology Chemotherapy Treatment Plan Name Start Date Discontinue Date Treatment Medications Discontinue Reason Plan Provider Cycles Bendamustine / RiTUXimab 28 Day Cycles - NHL 04/12/2022 10/05/2022 bendamustine (BENDEKA) IVPB in 50 mLriTUXimab-pv vr (RUXIENCE) IVPB in 500 mL Therapy Complete Srini Smith MD 6 of 6 cycles started - [facility] - Lymphoma - ILyAD - RiTUXimab + Vitamin D / Placebo 0 12/17/2019 riTUXimab (RITUXAN) IVPB in 500 mL Provider Discretion Srini Smith MD 2 of 12 cycles completed Lifetime Dose Tracking * Chemical Lifetime Dose Automatic Entry Manual Entr y DLP 5,033 mGycm 5,033 mGycm 0 mGycm Resolved Problems Problem Noted Date Diagnosed Date Resolved Date Acute respiratory failure with hypoxia 04/05/2022 04/06/2022 Assessment & Plan (04/06/2022 12:29 PM GIZZARD PULLER): SpO2 down to 88%. On 2L O2. Likely 2/2 pna - Manage pna as elsewhere - Clinically improving with antibiotics. Wean O2 as tolerated Hyponatremia 04/05/2022 04/06/2022 Assessment & Plan (04/05/2022 1:09 PM GIZZARD PULLER): Na 1344 -> 139. 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
--- OUTSIDE RECORDS SUMMARY | 2024-05-26 14:46 | XMS_ITS | Referral Summary ---
Author Organization [facility] 2 Address [address] [place] [address] Care Team Providers Care Chief Of Service Name Role Phone Chace Newman DO Primary Care Provider [phone] Srini Smith MD Unavailable [phone] Encounters Date Type Department Care Team Description 05/07/2024 Telephone [facility] Oncology [address] [place] [phone] Jessica Luong, RN 05/02/2024 Telephone [facility] Oncology [address] [place] [address] Jessica Luong, RN 04/25/2024 Telephone [facility] Oncology [address] [place] [phone] Jessica Luong, RN from Last 3 Months Allergies Active Allergy Reactions Criticality Noted Date Comments Rituximab Other (See comments) Low 03/19/2019 Sore throat, itching Medications atenolol (TENORMIN) 50 mg tablet 9 Active atorvastatin (LIPITOR) 10 mg tablet 9 Active glimepiride (AMARYL) 2 mg tabletIndicatio ns:type 2 diabetes mellitus TAKE 1/2 T PO D WITH BREAKFAST AND 1 T PO QHS WITH DINNER 3 9 Active losartan (COZAAR) 50 mg tablet 9 Active metFORMIN (GLUCOPHAGE) 500 mg tabletIndicatio ns:type 2 diabetes mellitus Take 1 tablet (500 mg total) by mouth 2 (two) times a day with meals Take 2 tabs BID Active pioglitazone (ACTOS) 45 mg tabletIndicatio ns:type 2 diabetes mellitus Take 1 tablet (45 mg total) by mouth daily Active traZODone (DESYREL) 50 mg tablet 3 Active mirtazapine (REMERON) 15 mg tabletIndicatio ns:Weight loss Take 1 tablet (15 mg total) by mouth nightly 90 tablet 2 4 Active Active Problems Problem Noted Date Diagnosed Date Pneumonia 04/05/2022 Assessment & Plan (04/06/2022 12:28 PM FRIT MAKER): Pt presented with productive cough and malaise. 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 On 2L O2. Likely 2/2 pna - Manage pna as elsewhere - Clinically improving with antibiotics. Wean O2 as tolerated Hyponatremia 04/05/2022 04/06/2022 Assessment & Plan (04/05/2022 1:09 PM FRIT MAKER): Na 1344 -> 139. 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 - BR x6C held in setting of infection, restart once infection resolved - Follows with Dr Smith Immunizations Immunization Administration Dates Next Due Influenza, Quad, Adjuvantate d, Intramuscular 12/01/2022,12/08/2021 Influenza, Quadrivalent, Hig h Dose, Preservative Free, Intrr 12/07/2022,12/01/2022,11/30/2020,10/28 Influenza, Trivalent, Adjuva nted, Intramuscular 11/20/2018 Influenza, Trivalent, High D ose, Split, Preservative Free, Intramuscular 11/30/2014 Influenza, Trivalent, IM (MDV) 11/27/2017 Influenza, Unspecified 11/30/2020 Pfizer SARS-CoV-2 Monovalent Vaccination (12+ Yrs) PURPLE 11/30/2020,04/09/2020,03/23/2020 Pneumococcal Conjugate PCV 13 02/15/2015 Pneumococcal Conjugate Pcv20 04/12/2022 Pneumococcal Polysaccharide PPV23 02/11/2014 RSV, Bivalent, Protein Subun it Rsvpref, Diluent (Abrysvo) 12/04/2022 ZOSTER LIVE 02/10/2012 ZOSTER Recombinant 12/17/2018,11/20/2018, 019 Social History Tobacco Use Types Packs/Day Years Used Date Smoking Tobacco: Never Smokeless Tobacco: Never Tobacco Cessation:Counseling Given: Not Answered PHQ-2 Answer Date Recorded PHQ-2 Total Score (If total score is 3 or more points, staff should administer the PHQ-9) 0 04/03/2022 Personal Safety Answer Date Recorded Have you ever been in or are you currently in a harmful physical or emotional relationship or is someone making you feel afraid or unsafe? Denies 04/23/2023 Sex and Gender Information Value Date Recorded Sex Assigned at Not on file Legal Sex Male 7:49 AM FRIT MAKER Gender Identity Not on file Sexual Orientation Not on file Last Filed Vital Signs Vital Sign Reading Time Taken Comments Blood Pressure 173/81 02/18/2024 8:34 AM FRIT MAKER Pulse 56 02/18/2024 8:34 AM FRIT MAKER Temperature 36.6 C (97.8 F) 02/18/2024 8:34 AM FRIT MAKER Respiratory Rate 20 02/06/2024 1:20 PM FRIT MAKER Oxygen Saturation 91% 02/06/2024 1:20 PM FRIT MAKER Inhaled Oxygen Concentration - - Weight 63.5 kg (140 lb) 02/18/2024 8:34 AM FRIT MAKER Height 182.9 cm (6') 02/18/2024 8:34 AM FRIT MAKER Body Mass Index 18.99 02/18/2024 8:34 AM FRIT MAKER Plan of Treatment Not on file Procedures Procedure Name Priority Date/Time Associated Diagnosis Comments EGFR Routine 02/06/2024 1:00 PM FRIT MAKER Ace marginal zone B-cell lymphoma (HCC) COLONOSCOPY 04/23/2023 2:53 PM FRIT MAKER HEMOGLOBIN A1C STAT 04/04/2022 1:00 AM FRIT MAKER LIPID PANEL STAT 04/04/2022 1:00 AM FRIT MAKER HEPATITIS C ANTIBODY Routine 01/22/2019 2:22 PM FRIT MAKER Ace marginal zone B-cell lymphoma (HCC) from Last 3 Months or Most Recently Relevant to Health Maintenance Results * eGFR (02/06/2024 1:00 PM FRIT MAKER) eGFR >90 >=60 mL/min/1. 73 m2 Comment: Interpretive Data Reference Interval Normal >/= 90 mL/min/1.73m2 Mildly decreased* 60 - 89 mL/min/1.73m2 Mildly to moderately decreased 45 - 59 mL/min/1.73m2 Moderately to severely decreased 30 - 44 mL/min/1.73m2 Severely decreased 15 - 29 mL/min/1.73m2 Kidney Failure < 15 mL/min/1.73m2 *Relative to young adult level Estimated glomerular filtration rate is determined by the 2020 CKD-EPI equation recommended by the National Kidney Foundation (A Unifying Approach to GFR Estimation: Recommendations of the NKF-ASK Task Force on Reassessing the Inclusion of Race in Diagnosing Kidney Disease, JASN 202). The CKD-EPI equation should not be used for patients with unstable renal function and has not been validated in children and those over 70. Current interpretive data was last reviewed 2021. Blood 02/06/2024 1:00 PM FRIT MAKER 02/06/2024 1:05 PM FRIT MAKER us Srini Smith MD LAB BLOOD ORDERABLES Final R esult [facility] [place] [address] * Colonoscopy (04/23/2023 2:53 PM FRIT MAKER) Anatomical Region Laterality Modality Other Narrative Procedure Note Radha Shaw MD - 04/23/2023 2:53 PM [facility] Patient Name: Konrad Nieto Procedure Date: 04/23/2023 2:53 PM Date of : 1945 Admit Type: Outpatient Age: 77 Gender: Male Attending MD: Radha Shaw M.D. Room: [facility] ENDOSCOPY ROOM 9 Note Status: Finalized Procedure: Colonoscopy Indications: Surveillance: Personal history of adenomatouspolyps on last colonoscopy 5 years ago, Last colonoscopy: April 2018 Referring MD: Chace Newman D.O. Providers: Radha Shaw M.D. Medicines: Monitored Anesthesia Care Complications: No immediate complications. Estimated Blood Loss: Estimated blood loss: none. Procedure: Pre-Anesthesia Assessment: - Immediately prior to administration ofmedications, the patient was re-assessed for adequacy to receive sedatives. - The risks and benefits of the procedure and the sedation options and risks were discussed with the patient. All questions were answered and informed consent was obtained. The benefits, risks and alternatives of theprocedure and sedation were discussed and informed consentwas obtained. All questions were answered. Please referto the signed informed consent document in the medical record. The scope was passed under direct vision.The [id number] endoscope was introduced through the anus and advanced to the cecum, identified by appendiceal orifice and ileocecal valve. The colonoscopy was somewhat difficult due to patient coughing throughout the procedure. Successful completion of the procedure was aided by increasing the dose of sedation medication. The patienttolerated the procedure well. The quality of the bowel preparation was evaluated using the BBPS (BostonBowel Preparation Scale) with scores of: Right Colon = 2 (minor amount of residual staining, small fragmentsof stool and/or opaque liquid, but mucosa seen well), Transverse Colon = 2 (minor amount of residual staining, small fragments of stool and/or opaque liquid, but mucosa seen well) and Left Colon = 2 (minor amount of residual staining, small fragmentsof stool and/or opaque liquid, but mucosa seen well).The total BBPS score equals 6. The quality of the bowel preparation was good. The bowel preparation usedwas polyethylene glycol (PEG) via split doseinstruction. The quality of the bowel preparation was good. Findings: A few small-mouthed diverticula were found in the sigmoid colon. Small non-bleeding internal hemorrhoids were found on retroflexion. The exam was otherwise without abnormality. Impression: - Diverticulosis in the sigmoid colon. - Small non-bleeding internal hemorrhoids werefound on retroflexion. - The examination was otherwise normal. - No specimens collected. Recommendation: - Return to referring physician as previously scheduled. - Consider repeat colonoscopy in 5 years for surveillance IF overall health is good at thattime. Attending Participation: I personally performed the entire procedure. Electronically signed by Radha Shaw MD Radha Shaw M.D. 04/23/2023 3:59:58 PM . Number of Addenda: 0 Note Initiated On: 04/23/2023 2:53 PM Recognized by the [employer] for promoting quality in endoscopy us Radha Shaw MD ENDOSCOPY PROCEDURES Final Res ult * (ABNORMAL) Hemoglobin A1c (04/04/2022 1:00 AM FRIT MAKER) Hgb A1C 7.9(H) 4.0 - 5.6 % [facility] Estimated Average Glucose 180 mg/dL [facility] Comment: The ADA recommends reporting an estimated Average Glucose (eAG) with all Hemoglobin A1c results using the equation derived from a study of 507 normal and diabetic adults. Minority populations were underrepresented and children were not included. (Diabetes Care 2020; 43(S1): S66-S76). The eAG is not equivalent to a fasting glucose. Blood 04/04/2022 1:00 AM FRIT MAKER 04/04/2022 1:45 AM FRIT MAKER us Srini Smith MD LAB BLOOD ORDERABLES Final R esult [facility] [place] [address] * Lipid panel (04/04/2022 1:00 AM FRIT MAKER) Cholesterol 94 30 - 199 mg/dL [facility] Comment: Interpretive Data Ages < or = 19 years Acceptable: <170 mg/dL Borderline high: 170-199 mg/dL High: >or= 200 mg/dL Ages > or = 20 years Desirable: <200 mg/dL Borderline high: 200-239 mg/dL High: >or= 240 mg/dL Literature References: 1. Expert Panel on Integrated Guidelines for Cardiovascular Health and Risk Reduction in Children and Adolescents. Pediatrics 2011;128:S213 2. NCEP Expert Panel. Circulation 2004;110:227 Current Interpretive Data was last revised on 2017. Triglycerides 51 <=149 mg/dL [facility] Comment: Interpretive Data Ages < or = 9 years Acceptable: <75 mg/dL Borderline high: 75-99 mg/dL High: >or= 100 mg/dL Ages 10 to 20 years Acceptable: <90 mg/dL Borderline high: 90-129 mg/dL High: >or= 130 mg/dL Ages > or = 20 years Desirable: <150 mg/dL Borderline high: 150-199 mg/dL High: 200-499 mg/dL Very high: >or= 499 mg/dL Literature References: 1. Expert Panel on Integrated Guidelines for Cardiovascular Health and Risk Reduction in Children and Adolescents. Pediatrics 2011;128:S213 2. NCEP Expert Panel. Circulation 2004;110:227 Current Interpretive Data was last revised on 2017. HDL 53 >=40 mg/dL [facility] Comment: Interpretive Data Ages < or = 19 years Acceptable: >45 mg/dL Borderline low: 40-45 mg/dL Low: <40 mg/dL Ages > or = 20 years Desirable: >or= 60 mg/dL Low: <40 mg/dL Literature References: 1. Expert Panel on Integrated Guidelines for Cardiovascular Health and Risk Reduction in Children and Adolescents. Pediatrics 2011;128:S213 2. NCEP Expert Panel. Circulation 2004;110:227 Current Interpretive Data was last revised on 2017. LDL, calculated 31 <=129 mg/dL [facility] Comment: Interpretive Data Ages < or = 19 years Acceptable: <110 mg/dL Borderline high: 110-129 mg/dL High: >or= 130 mg/dL Ages > or = 20 years Optimal: <100 mg/dL Near optimal: 100-129 mg/dL Borderline high: 130-159 mg/dL High: >160 mg/dL Literature References: 1. Expert Panel on Integrated Guidelines for Cardiovascular Health and Risk Reduction in Children and Adolescents. Pediatrics 2011;128:S213 2. NCEP Expert Panel. Circulation 2004;110:227 Current Interpretive Data was last revised on 2017. Non-HDL Cholesterol 41 mg/dL [facility] Comment: Interpretive Data Ages < or = 19 years Acceptable: <120 mg/dL Borderline high: 120-144 mg/dL High: >145 mg/dL Ages > or = 20 years When triglycerides are >200 mg/dL, Non-HDL cholesterol is a secondary target of therapy with treatment goals that are 30 mg/dL greater than the LDL cholesterol target. Literature References: 1. Expert Panel on Integrated Guidelines for Cardiovascular Health and Risk Reduction in Children and Adolescents. Pediatrics 2011;128:S213 2. NCEP Expert Panel. Circulation 2004;110:227 Current Interpretive Data was last revised on 2017. Chol/HDL ratio 2 [facility] Blood 04/04/2022 1:00 AM FRIT MAKER 04/04/2022 1:42 AM FRIT MAKER us Srini Smith MD LAB BLOOD ORDERABLES Final R esult Performing Organization Address [facility] [[email or web address]] Co de Phone Number [facility] [place] [address] * Hepatitis C antibody (01/22/2019 2:22 PM FRIT MAKER) Hep C Ab Nonreactive Nonreactive [facility] Comment: Interpretive Data Positive results should be confirmed by a molecular method. If positive, a second separately collected sample should be submitted for Hepatitis C Virus (HCV) RNA Detection and Quantitation by Real-Time Reverse Rubber Liner-PCR (RT-PCR). Current interpretive data was last revised on 2016. Blood specimen (specimen) 01/22/2019 2:22 PM FRIT MAKER 01/22/2019 2:35 PM FRIT MAKER Annie donald AXMINSTER RUG SETTER LAB MICROBIOLOGY - GENERAL ORDERABLES Edited Result - Final Performing Organization Address [facility] [[email or web address]] Co de Phone Number [facility] [place] [address] from Last 3 Months or Most Recently Relevant to Health Maintenance Insurance [facility] MEDICARE ADVANTAGE [facility] MEDIC[facility] Address: [facility] [address] [place] [address] [facility] MEDICARE ADVANTAGE [facility] MEDIC[facility] Address: [address] [address] Advance Directives For more information, please contact: [phone] * Full Code (Latest Code Status on File) Date Activated Date Inactivated Comments 04/23/2023 3:07 PM 04/23/2023 8:55 PM * Full Code Date Activated Date Inactivated Comments 04/03/2022 11:40 PM 04/06/2022 9:40 PM * Full Code Date Activated Date Inactivated Comments 04/26/2018 6:57 AM 04/26/2018 1:31 PM Care Teams Chief Of Service Relationship Specialty Start Date End Date Chace Newman DO PCP - General Family Medicine 04/04/22 Srini Smith MD [address] [facility]COLOGY, [address] [place] [address] Medical Oncologist/Photographer Apprentice Lithographic Medical Oncology 04/07/22
--- OUTSIDE RECORDS SUMMARY | 2024-05-26 14:46 | XMS_ITS | Encounter Summary ---
Author Organization [facility] Address [address] [place] [address] Phone Care Team Providers Care Silk Trimmer Name Role Phone Kun Oconnor MD Primary Care Provider [phone] Chace Newman DO Primary Care Provider [phone] Srini Smith MD Unavailable [phone] Encounter Details Date Type Department Care Team (Latest Contact Info) Description 07/19/2019 Orders Only [facility] Scanning, Provider Social History Tobacco Use Types Packs/Day Years Used Date Smoking Tobacco: Never Smokeless Tobacco: Never Sex and Gender Information Value Date Recorded Sex Assigned at Not on file Legal Sex Male 7:49 AM PRESS CUTTER Gender Identity Not on file Sexual Orientation Not on file documented as of this encounter Plan of Treatment Not on file documented as of this encounter Procedures Procedure Name Priority Date/Time Associated Diagnosis Comments SCAN - PATHOLOGY 07/19/2019 documented in this encounter Results * SCAN - PATHOLOGY (07/19/2019) us Provider Scanning Final Result documented in this encounter Visit Diagnoses Not on filedocumented in this encounter Care Teams Silk Trimmer Relationship Specialty Start Date End Date Kun Oconnor MD [address] [place], [place] [id number] PCP - General 12/29/16 04/03/22 Chace Newman DO [address] [place] [address] PCP - General Family Medicine 04/04/22 Srini Smith MD [address] [facility], [address] [place] [address] Medical Oncologist/Director Of District Office Medical Oncology 04/07/22 documented as of this encounter
--- OUTSIDE RECORDS SUMMARY | 2024-05-26 14:46 | XMS_ITS | Clinical Summary ---
Author Organization [facility] 2 Address [address] [facility] [place] [address] Care Team Providers Care Reverberatory Furnace Operator Name Role Phone Chace Newman DO Primary Care Provider [phone] Srini Smith MD Unavailable [phone] Allergies Active Allergy Reactions Criticality Noted Date [...] 04/05/2022 Assessment & Plan (04/06/2022 12:28 PM FILM VAULT SUPERVISOR): Pt presented with productive cough and malaise. 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 On 2L O2. Likely 2/2 pna - Manage pna as elsewhere - Clinically improving with antibiotics. Wean O2 as tolerated Hyponatremia 04/05/2022 04/06/2022 Assessment & Plan (04/05/2022 1:09 PM FILM VAULT SUPERVISOR): Na 1344 -> 139. 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/03/2022 023 Assessment & Plan (04/05/2022 7:53 AM FILM VAULT SUPERVISOR): - s/p Rituxan x4 () - Now with PD with likely left kidney involvement - BR x6C held in setting of infection, restart once infection resolved - Follows with Dr Smith Encounters Date Type Department Care Team Description 05/07/2024 Telephone [facility] [address] [place] [address] [phone] Jessica Luong, RN 05/02/2024 Telephone [facility] [address] [place] [address] Jessica Luong, RN 04/25/2024 Telephone [facility] [address] [place] [address] [phone] Jessica Luong, RN from Last 3 Months Immunizations Immunization Administration Dates Next Due Influenza, [...] ZOSTER LIVE 02/10/2012 ZOSTER Recombinant 12/17/2018,11/20/2018, 019 Surgical History Surgery Date Site/Laterality Comments COLONOSCOPY multiple Medical History Medical History Date Comments Personal history of other en docrine, nutritional and metabolic disease History of type 2 di abetes mellitus - (Added by TW Conv) HTN (hypertension) Diffuse large B cell lymphoma (HCC) Family History Medical History Relation Name Comments Brain Aneurysm Brother CHf Father Diabetes Father Family history of diabetes mellitus - (Added by TW Conv) CHF Mother Relation Name Status Comments Brother Father Mother Sister Social History Tobacco Use Types Packs/Day Years [...] on file Legal Sex Male 7:49 AM FILM VAULT SUPERVISOR Gender Identity Not on file Sexual Orientation Not on file Obstetrics History Last Filed Vital Signs Vital Sign Reading Time Taken Comments Blood Pressure 173/81 02/18/2024 8:34 AM FILM VAULT SUPERVISOR Pulse 56 02/18/2024 8:34 AM FILM VAULT SUPERVISOR Temperature 36.6 C (97.8 F) 02/18/2024 8:34 AM FILM VAULT SUPERVISOR Respiratory Rate 20 02/06/2024 1:20 PM FILM VAULT SUPERVISOR Oxygen Saturation 91% 02/06/2024 1:20 PM FILM VAULT SUPERVISOR Inhaled Oxygen Concentration - - Weight 63.5 kg (140 lb) 02/18/2024 8:34 AM FILM VAULT SUPERVISOR Height 182.9 cm (6') 02/18/2024 8:34 AM FILM VAULT SUPERVISOR Body Mass Index 18.99 02/18/2024 8:34 AM FILM VAULT SUPERVISOR Plan of Treatment Health Maintenance Due Date Last Done Comments Albumin Creatinine Ratio, Urine 1945 Foot Exam 1945 DTaP/Tdap/Td Vaccine (1 - Tdap) 10/13/1958 Hepatitis B Screening 10/13/1965 Well Visit 65+ 10/13/2012 Dilated Eye Exam 05/16/2019 05/15/2018 Hemoglobin A1C 10/02/2022 04/04/2022, 12/17/2019 Depression Screening 04/03/2023 04/03/2022 Lipid Panel 04/04/2023 04/04/2022, 09/02, 12/17/2019 Covid-19 Vaccine (2023-2 5 season) 2023 12/08/2021, 06/25/2021, 11/30/2020, Additional history exists Influenza Vaccine (#1) 2023 , 12/01/2022, 12/01/2022, Additional history exists Fall Risk Assessment 04/23/2024 04/23/2023 eGFR 02/05/2025 02/06/2024, 090 06/2023, 07/25/2023, Additional history exists Zoster Vaccine Completed 12/17/2018, 11/03, 10/18/2018, Additional history exists Hepatitis C Screening Completed 01/22/2019 Pneumococcal vaccine 65+ Completed 023, 02/15/2015, 02/11/2014 Colon Cancer Screening-CT Colonography Discontinued 04/23/2023, 04/26/2018, 05/19/2015, Additional history exists Colon Cancer Screening-Colonoscopy Discontinued 04/23/2023, 04/26/2018, 05/19/2015, Additional history exists Colon Cancer Screening-DNA Stool Discontinued 04/23/2023, 04/26/2018, 05/19/2015, Additional history exists Colon Cancer Screening-FIT Discontinued 04/23, 04/26/2018, 05/19/2015, Additional history exists Colon Cancer Screening-FOBT Discontinued 04/05, 04/26/2018, 05/19/2015, Additional history exists Colon Cancer Screening-Sigmoidoscopy Discontinued 04/23/2023, 04/26/2018, 05/19/2015, Additional history exists Colorectal Cancer Screening Discontinued Procedures Procedure Name Priority Date/Time Associated Diagnosis Comments EGFR Routine 02/06/2024 1:00 PM FILM VAULT SUPERVISOR Ace marginal zone B-cell lymphoma (HCC) COLONOSCOPY 04/23/2023 2:53 PM FILM VAULT SUPERVISOR HEMOGLOBIN A1C STAT 04/04/2022 1:00 AM FILM VAULT SUPERVISOR LIPID PANEL STAT 04/04/2022 1:00 AM FILM VAULT SUPERVISOR HEPATITIS C ANTIBODY Routine 01/22/2019 2:22 PM FILM VAULT SUPERVISOR Ace marginal zone B-cell lymphoma (HCC) from Last 3 Months or Most Recently Relevant to Health Maintenance Results * eGFR (02/06/2024 1:00 PM FILM VAULT SUPERVISOR) eGFR >90 >=60 mL/min/1. 73 m2 Comment: [...] of Race in Diagnosing Kidney Disease, JASN 2020). The CKD-EPI equation should not be used for patients with unstable renal function and has not been validated in children and those over 70. Current interpretive data was last reviewed 2021. Blood 02/06/2024 1:00 PM FILM VAULT SUPERVISOR 02/06/2024 1:05 PM FILM VAULT SUPERVISOR us Srini Smith MD LAB BLOOD ORDERABLES Final R esult [facility] Department [place] [address] * Colonoscopy (04/23/2023 2:53 PM FILM VAULT SUPERVISOR) Anatomical Region Laterality Modality Other Narrative Procedure Note Radha Shaw MD - 04/23/2023 2:53 PM [facility] Patient Name: Konrad Nieto Procedure Date: 04/23/2023 2:53 PM Date of : 1945 Admit Type: Outpatient Age: 77 Gender: Male Attending MD: Radha Shaw M.D. Room: [facility] ENDOSCOPY ROOM 9 Note Status: Finalized [...] The scope was passed under direct vision.The CF [id number] endoscope was introduced through the anus [...] On: 04/23/2023 2:53 PM Recognized by the [employer] for promoting quality in endoscopy us Radha Shaw MD ENDOSCOPY PROCEDURES Final Res ult * (ABNORMAL) Hemoglobin A1c (04/04/2022 1:00 AM FILM VAULT SUPERVISOR) Hgb A1C 7.9(H) 4.0 - 5.6 % [facility]TAHARINE RIOS Estimated Average Glucose 180 mg/dL [facility] RIOS Comment: The ADA recommends reporting an estimated Average Glucose (eAG) with all Hemoglobin A1c results using the equation derived from a study of 507 normal and diabetic adults. Minority populations were underrepresented and children were not included. (Diabetes Care 2020; 43(S1): S66-S76). The eAG is not equivalent to a fasting glucose. Blood 04/04/2022 1:00 AM FILM VAULT SUPERVISOR 04/04/2022 1:45 AM FILM VAULT SUPERVISOR us Srini Smith MD LAB BLOOD ORDERABLES Final R esult [facility] Department [place] [address] * Lipid panel (04/04/2022 1:00 AM FILM VAULT SUPERVISOR) Cholesterol 94 30 - 199 mg/dL [facility] Comment: Interpretive Data Ages < or [...] revised on 2017. Triglycerides 51 <=149 mg/dL [facility] Comment: Interpretive Data Ages < or [...] revised on 2017. HDL 53 >=40 mg/dL [facility] Comment: Interpretive Data Ages < or [...] on 2017. LDL, calculated 31 <=129 mg/dL [facility] Comment: Interpretive Data Ages < or [...] revised on 2017. Non-HDL Cholesterol 41 mg/dL [facility] Comment: Interpretive Data Ages < or [...] last revised on 2017. Chol/HDL ratio 2 [facility] Blood 04/04/2022 1:00 AM FILM VAULT SUPERVISOR 04/04/2022 1:42 AM FILM VAULT SUPERVISOR us Srini Smith MD LAB BLOOD ORDERABLES Final R esult Performing Organization Address [facility] Co de Phone Number [facility] Department [place] [address] * Hepatitis C antibody (01/22/2019 2:22 PM FILM VAULT SUPERVISOR) Pathologist [facility] Hep C Ab Nonreactive Nonreactive [facility] Comment: Interpretive Data Positive results should be confirmed by a molecular method. If positive, a second separately collected sample should be submitted for Hepatitis C Virus (HCV) RNA Detection and Quantitation by Real-Time Reverse Instructor Traffic Safety-PCR (RT-PCR). Current interpretive data was last revised on 2016. Blood specimen (specimen) 01/22/2019 2:22 PM FILM VAULT SUPERVISOR 01/22/2019 2:35 PM FILM VAULT SUPERVISOR Annie donald NP LAB MICROBIOLOGY - GENERAL ORDERABLES Edited Result - Final Performing Organization Address [facility] Co de Phone Number [facility] Department [place] [address] from Last 3 Months or Most Recently Relevant to Health Maintenance Insurance [facility] MEDICARE [facility] Address: [address] [address] [place] [address] [facility] MEDICARE [facility] Address: [address] [place] [id number] Advance Directives For more information, please contact: [phone] * Full Code (Latest Code Status on File) Date Activated Date Inactivated Comments 04/23/2023 3:07 PM 04/23/2023 8:55 PM * Full Code Date Activated Date Inactivated Comments 04/03/2022 11:40 PM 04/06/2022 9:40 PM * Full Code Date Activated Date Inactivated Comments 04/26/2018 6:57 AM 04/26/2018 1:31 PM Care Teams Reverberatory Furnace Operator Relationship Specialty Start Date End Date Chace Newman DO PCP - General Family Medicine 04/04/22 Srini Smith MD [address] [facility] IM MEDICAL ONCOLOGY, [address] [place] [address] Medical Oncologist/Pumpman Medical Oncology 04/07/22
--- OUTSIDE RECORDS SUMMARY | 2024-05-26 14:46 | XMS_ITS | Encounter Summary ---
Author Organization [facility] Address [address] [place] [address] Care Team Providers Care Rough Rounder Machine Name Role Phone Unavailable Primary Care Provider Unavailabl e Encounter Details Date Type Department Care Team (Late st Contact Info) Description 01/01/2019 Lab Requisition [facility] Care Pathology Lab [address] [place] [address] Mainor Zavaleta MD [address] [place] [address] Enlarged lymph nodes, unspecified Social History Tobacco Use Types Packs/Day Years Used Date Smoking Tobacco: Never Assessed Sex and Gender Information Value Date Recorded Sex Assigned at Not on file Gender Identity Not on file Sexual Orientation Not on file documented as of this encounter Plan of Treatment Not on file documented as of this encounter Procedures Procedure Name Priority Date/Time Associated Diagnosis Comments FLOW CYTOMETRY TISSUE PANEL Routine 01/01/2019 8:24 AM CDT Enlarged lymph nodes, unspecified documented in this encounter Results * FLOW CYTOMETRY TISSUE PANEL (01/01/2019 8:24 AM CDT) Case Report Flow Cytometry Case: [id number] Authorizing Provider: Mainor Zavaleta MD Collected: 01/01/2019 08:24 AM Ordering Location: [facility] Care Pathology Lab Received: 01/01/2019 12:16 PM Pathologist: Omkar Houston MD Specimen: Lymph Node, ANNA PORTAL AORTIC LYMPH NODE 9 11:50 AM CDT [facility] Final Diagnosis Lymph node, periportal aortic , flow cytometric immunophenotypic analysis: - CD5-negative, SA03-kltjknha mature B-cell lymphoma. - See interpretation. 9 11:50 AM CDT [facility] Flow Cytometry Interpretation The periportal aortic lymph node specimen has a viability of 79%. Most of the cells are within the lymphocyte gate (98%). Within this region, there is a monotypic B-cell population identified expressing CD19, CD20 and kappa surface light chains but no significant expression of CD5, CD10, CD23 or CD34. By CD19, this population accounts for. There is no immunophenotypically aberrant or expanded T-cell population seen (CD4:CD8 ratio = 1.7:1). A cytospin prepared from the flow cytometry specimen is reviewed for quality assurance test program manager purposes. Overall, the periportal aortic lymph node shows an evidence of involvement by CD5-negative, ST26-fiydusdw mature B-cell lymphoma. Correlation with clinical findings and concurrent tissue biopsy ([id number]) is required. 9 11:[address] [facility] Flow Cytometry Results Differential Result Comment Flow Cell Count /uL 114,000 Total Viability % 79.0 Lymphocytes % 98 Dim CD45 Region % 1 Monocytes % 0 Granulocytes % 1 9 11:[address] [facility] Reason for test Enlarged lymph nodes , unspecified 9 11:[address] [facility] Client Specimen ID # [id number] 9 11:[address] [facility] Number of markers 16 were performed. A-2 Flow CD3 A-4 Flow CD10 A-6 Flow CD20 A-7 Flow CD23 A-12 Flow CD2 A-13 Flow CD4 A-16 Flow CD1a A-3 Flow CD5 A-5 Flow CD19 A-8 Flow CD34 A-9 Flow CD45 A-14 Flow CD7 A-15 Flow CD8 A-17 Flow CD30 A-10 Trail+CD19+ A-11 Lambda+CD19+ 9 11:[address] [facility] Disclaimer Test performed at [facility], [address] [place] [address], [id number]. *The established laboratory minimum viability is 70%. Values below the minimum may result in the failure to find an abnormal population of cells. This test was developed and its performance characteristics determined by the Flow Cytometry Laboratory. It has not been cleared by the [place] Food and Drug Administration (FDA). The FDA has determined that such clearance or approval is not necessary. This test is used for clinical purposes. It should not be regarded as investigational or for research. This laboratory is regulated under the Clinical Laboratory Improvement Amendments of 1998 (CLIA) as a qualified to perform high complexity clinical testing. 9 11:50 AM CDT [facility] Embedded Images 9 11:50 AM CDT [facility] Pathology/Cytolo gy ENTIRE LYMPH NODE / Unknown 01/01/2019 8:24 AM CDT 01/01/2019 12:16 PM CDT Mainor Zavaleta MD LAB - PATHOLOGY/CYTO LOGY ORDERABLES [facility] [address] [phone] documented in this encounter Visit Diagnoses Diagnosis Enlarged lymph nodes, unspecified documented in this encounter
--- OUTSIDE RECORDS SUMMARY | 2024-05-26 14:46 | XMS_ITS | Encounter Summary ---
Author Organization [facility] Address [address] [place] [address] Care Team Providers Care After School Caregiver Name Role Phone Unavailable Primary Care Provider Unavailabl e Encounter Details Date Type Department Care Team (Late st Contact Info) Description 01/03/2019 Lab Requisition [facility] Care Pathology Lab [address] [place] [address] Mainor Zavaleta MD [address] [place] [address] Social History Tobacco Use Types Packs/Day Years Used Date Smoking Tobacco: Never Assessed Sex and Gender Information Value Date Recorded Sex Assigned at Not on file Gender Identity Not on file Sexual Orientation Not on file documented as of this encounter Plan of Treatment Not on file documented as of this encounter Procedures Procedure Name Priority Date/Time Associated Diagnosis Comments PATHOLOGY TISSUE Routine 01/01/2019 9:25 AM CDT documented in this encounter Results * PATHOLOGY TISSUE (01/01/2019 9:25 AM CDT) Case Report Surgical Pathology Report Case: [id number] Authorizing Provider: Mainor Zavaleta MD Collected: 01/01/2019 09:25 AM Ordering Location: [facility] Care Pathology Lab Received: 01/03/2019 09:41 AM Pathologist: Lu King MD Specimen: Lymph Node Biopsy, [id number] 01/06/2019 11:46 AM [facility] Final Diagnosis Lymph nodes, periportal aortic, excision: - Marginal zone lymphoma. - See description. 01/06/2019 11:46 AM [facility] Microscopic Description and Comment Review of the periportal aortic lymph node excision specimen reveals sections of enlarged lymph nodes with completely effaced architecture which is composed of vaguely nodular lymphoid cells which are small, round, and monomorphic, with clumped chromatin, variable nucleoli, and occasional mitoses. Patchy sinusoidal dilatation and scattered lipogranulomas are also seen in the lymph node parenchyma. No extrinsic cell population, Hodgkin/Dante-Sternber g-like (HRS-like) cells, increased inflammatory cells, increased fibrosis, or necrosis are identified. Immunohistochemical stains are performed on block B3 in the [facility] Department of Pathology, with appropriately reactive controls, and demonstrate the followings: CD20 and BCL-2 are positive in the neoplastic cells. CD3, CD5, CD10, CD23, CD43, cyclin D1, and MUM-1 are negative in the neoplastic cells. CD23 shows a few residual follicular dendritic cell meshworks that are colonized by neoplastic cells. Concurrent lymph node flow cytometry ([id number]) detects a CD5-negative, IL88-glukmiwy mature B-cell lymphoma. 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 Correlation with clinical findings and relevant cytogenetic/molecular testing is required. KR/MM 01/06/2019 11:46 AM [facility] Clinical History Lymphadenopathy. 01/06/2019 11:46 AM [facility] Materials Received Received from [place], [place] are 5 slides and 5 blocks labeled Konrad [employer] and [id number]. All original materials are returned along with a copy of our report. 01/06/2019 11:46 AM [facility] Disclaimer The performance characteristics of all immunohistochemical and indirect immunofluorescence stains (if any) cited in this report were determined by the Histopathology Laboratory of [facility]. Some of these tests were developed by our own laboratory and have not been cleared or approved by the US Food and Drug Administration. The FDA does not require this test to go through premarket FDA review. These tests are used for clinical purposes. They should not be regarded as investigational or for research. This laboratory is certified under the Clinical Laboratory Improvement Amendments (CLIA) as qualified to perform high complexity clinical laboratory testing. This case has been personally reviewed and interpreted by the attending (teaching) pathologist. The interpretation of this case is performed by [facility] Pathology at [facility], [facility] [place] [address]. 01/06/2019 11:46 AM ENVIRONMENTAL COMPLIANCE ENGINEER [facility] Embedded Images 01/06/2019 11:46 AM [facility] Pathology/Cytolo gy BIOPSY OF LYMPH NODE / Unknown 01/01/2019 9:25 AM CDT 01/03/2019 9:41 AM CDT Mainor Zavaleta MD LAB - PATHOLOGY/CYTO LOGY ORDERABLES Performing Organization Address City/State[facility] Co de Phone Number [facility] [address] [facility]. [address] [phone] documented in this encounter Visit Diagnoses Not on filedocumented in this encounter
--- OUTSIDE RECORDS SUMMARY | 2024-05-26 14:46 | XMS_ITS | Encounter Summary ---
Author Organization [facility] Address [address] [place] [address] Phone Care Team Providers Care Biofuels Plant Superintendent Name Role Phone Kun Oconnor MD Primary Care Provider [phone] Chace Newman DO Primary Care Provider [phone] Srini Smith MD Unavailable [phone] Encounter Details Date Type Department Care Team (Latest Contact Info) Description 07/18/2019 Orders Only [facility] Scanning, Provider Social History Tobacco Use Types Packs/Day Years Used Date Smoking Tobacco: Never Smokeless Tobacco: Never Sex and Gender Information Value Date Recorded Sex Assigned at Not on file Legal Sex Male 7:49 AM SETTLEMENT PROCESSOR Gender Identity Not on file Sexual Orientation Not on file documented as of this encounter Plan of Treatment Not on file documented as of this encounter Procedures Procedure Name Priority Date/Time Associated Diagnosis Comments CARDIOLOGY DOCUMENT SCAN 07/18/2019 documented in this encounter Results * SCAN - CARDIOLOGY (07/18/2019) Anatomical Region Laterality Modality Other us Provider Scanning CV CARDIAC SERVICES PROCEDURES Final Result documented in this encounter Visit Diagnoses Not on filedocumented in this encounter Care Teams Biofuels Plant Superintendent Relationship Specialty Start Date End Date Kun Oconnor MD [address] [place], [place] [id number] PCP - General 12/29/16 04/03/22 Chace Newman DO [address] [place] [address] PCP - General Family Medicine 04/04/22 Srini Smith MD [address] [facility] MEDICAL [facility]COL[facility]Y, [address] [place] [address] Medical Oncologist/Frozen Meat Cutter Medical Oncology 04/07/22 documented as of this encounter
--- OUTSIDE RECORDS SUMMARY | 2024-05-26 14:46 | XMS_ITS | Clinical Summary ---
Author Organization [facility] Address [address] [place] [address] Care Team Providers Care Claim Adjuster Name Role Phone Unavailable Primary Care Provider Unavailabl e Source Comments [facility],non-owned Affiliates and Associated Physician Practices is amultiple site organization consisting of ambulatory clinics and hospital sitesin [place], [place], [place] and [place]. This disclosure is being madepursuant to the Care Everywhere program and may not contain all information available regarding this patient. Last updated 17.[facility] Nodality Social History Tobacco Use Types Packs/Day Years Used Date Smoking Tobacco: Never Assessed Sex and Gender Information Value Date Recorded Sex Assigned at Not on file Gender Identity Not on file Sexual Orientation Not on file Plan of Treatment Health Maintenance Due Date Last Done Comments HEPATITIS C SCREENING 10/09/1965 DTAP/TDAP/TD VACCINES (1 - Tdap) 10/13/1966 PNEUMOCOCCAL VACCINE 50+ (1 of 1 - PCV) 10/13/1997 ZOSTER VACCINE (1 of 2) 10/13/1997 Respiratory Syncytial Virus (RSV) Vaccine Pt: or over 60 yrs (1 - 1-dose 75+ series) 10/13/2022 COVID-19 VACCINE ( - 2023-2 5 season) 2023 INFLUENZA VACCINE (#1) 2023 DEPRESSION SCREENING 03/05/2024 HEPATITIS B VACCINE Aged Out No longe r eligible based on patient's age to complete this topic HIB VACCINE Aged Out No longer eligi ble based on patient's age to complete this topic HPV VACCINE Aged Out No longer eligi ble based on patient's age to complete this topic MENINGOCOCCAL (Group B) VACC INE SHARED DECISION-MAKING Aged Out No longer eligibl e based on patient's age to complete this topic MENINGOCOCCAL GROUPS A/C/Y/W VACCINE Aged Out No longer eligible b ased on patient's age to complete this topic
== END 2024-05-26 13:02 | disposition home or self-care (01) ==
LOC: ANHAUDASC 13:01
PROVIDERS: PCP Nurse Practitioner; Visit Provider Nurse Practitioner
DX: H90.3 Sensorineural hearing loss, bilateral (principal); H93.13 Tinnitus, bilateral
CPT/HCPCS: 92557; 92567

== ENCOUNTER 2024-09-08 09:41 | Outpatient (CLI) | payer MEDICARE, SELFPAY ==
--- OUTSIDE RECORDS SUMMARY | 2024-09-08 09:48 | XMS_ITS | Encounter Summary ---
Author Organization [facility] Address [address] [place] [address] Care Team Providers Care Windows Server Engineer Name Role Phone Unavailable Primary Care Provider Unavailabl e Encounter Details Date Type Department Care Team (Late st Contact Info) Description 01/03/2019 Lab Requisition [facility] Care Pathology Lab [address] [place] [address] Mainor Zavaleta MD [address] [place] [address] Social History Tobacco Use Types Packs/Day Years Used Date Smoking Tobacco: Never Assessed Sex and Gender Information Value Date Recorded Sex Assigned at Not on file Legal Sex Male 3:14 PM CDT Gender Identity Not on file Sexual Orientation Not on file documented as of this encounter Plan of Treatment Not on file documented as of this encounter Procedures Procedure Name Priority Date/Time Associated Diagnosis Comments PATHOLOGY TISSUE Routine 01/01/2019 9:25 AM CDT documented in this encounter Results * PATHOLOGY TISSUE (01/01/2019 9:25 AM CDT) Case Report Surgical Pathology Report Case: [id number] Authorizing Provider: Mainor Zavaleta MD Collected: 01/01/2019 09:25 AM Ordering Location: [facility] Received: 01/03/2019 09:41 AM Pathologist: Lu King MD Specimen: Lymph Node Biopsy, [id number] 01/06/2019 11:46 AM [facility] Final Diagnosis Lymph nodes, periportal aortic, excision: - Marginal zone lymphoma. - See description. 01/06/2019 11:46 AM [facility] at [address] SKIDDER LEVER OPERATOR Microscopic Description and Comment Review of the [...] are performed on block B3 in the [facility] Department of Pathology, with appropriately reactive controls, and demonstrate the followings: CD20 and BCL-2 are positive in the neoplastic cells. CD3, CD5, CD10, CD23, CD43, cyclin D1, and MUM-1 are negative in the neoplastic cells. CD23 shows a few residual follicular dendritic cell meshworks that are colonized by neoplastic cells. Concurrent lymph node flow cytometry ([id number]) detects a CD5-negative, [id number] mature B-cell lymphoma. 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 Correlation with clinical findings and relevant cytogenetic/molecular testing is required. KR/MM 01/06/2019 11:46 AM [facility] PATHOLOGY LAB Clinical History Lymphadenopathy. 01/06/2019 11:46 AM [facility] PATHOLOGY LAB Materials Received Received from [facility], [place], [place] are 5 slides and 5 blocks labeled Konrad Nieto and [id number]. All original materials are returned along with a copy of our report. 01/06/2019 11:46 AM [facility] PATHOLOGY LAB Disclaimer The performance characteristics of all immunohistochemical and indirect immunofluorescence stains (if any) cited in this report were determined by the Histopathology Laboratory of [facility]. Some of these tests were developed [...] interpretation of this case is performed by [facility] Pathology at [facility], [address] [place] [address]. 01/06/2019 11:46 AM [facility] PATHOLOGY LAB Embedded Images 01/06/2019 11:46 AM [facility] PATHOLOGY LAB Pathology/Cytolo gy BIOPSY OF LYMPH NODE / Unknown 01/01/2019 9:25 AM CDT 01/03/2019 9:41 AM CDT Mainor Zavaleta MD LAB - PATHOLOGY/CYTOLOGY ORDER ROMAIN Final Result [facility] PATHOLOGY LAB [address] [place] [address] documented in this encounter Visit Diagnoses Not on filedocumented in this encounter
--- OUTSIDE RECORDS SUMMARY | 2024-09-08 09:48 | XMS_ITS | Encounter Summary ---
Author Organization [facility] Address [address] [place] [address] Phone Care Team Providers Care Interactive Media Marketing Specialist Name Role Phone Kun Oconnor MD Primary Care Provider [phone] Chace Newman DO Primary Care Provider [phone] Srini Smith MD Unavailable [phone] Encounter Details Date Type Department Care Team (Latest Contact Info) Description 07/19/2019 Orders Only [facility] Scanning, Provider Social History Tobacco Use Types Packs/Day Years Used Date Smoking Tobacco: Never Smokeless Tobacco: Never Sex and Gender Information Value Date Recorded Sex Assigned at Not on file Legal Sex Male 7:49 AM BALLASTER Gender Identity Not on file Sexual Orientation [...] on filedocumented in this encounter Care Teams Interactive Media Marketing Specialist Relationship Specialty Start Date End Date Kun Oconnor MD [address] [place], [place] [id number] PCP - General 12/29/16 04/03/22 Chace Newman DO [address] [place] [address] PCP - General Family Medicine 04/04/22 Srini Smith MD [address] [facility] MEDICAL ONCOLOGY, [address] [place] [address] Medical Oncologist/Student Dean Medical Oncology 04/07/22 documented as of this encounter
--- OUTSIDE RECORDS SUMMARY | 2024-09-08 09:48 | XMS_ITS | Clinical Summary ---
Author Organization [facility] Address [address] [place] [address] Care Team Providers Care Brusher Warp Name Role Phone Unavailable Primary Care Provider Unavailabl e Source Comments [facility],non-owned Affiliates and Associated Physician Practices is amultiple site organization consisting of ambulatory clinics and hospital sitesin [place], [place], [place] and [place]. This disclosure is being madepursuant to the Care Everywhere program and may not contain all information available regarding this patient. Last updated 17.[facility] [employer] Social History Tobacco Use Types Packs/Day Years [...] VACCINE ( - 2023-2 5 season) 2023 DEPRESSION SCREENING 03/05/2024 INFLUENZA VACCINE (#1) 2024 HEPATITIS B VACCINE Aged Out No longe [...] on patient's age to complete this topic Insurance [employer]
--- OUTSIDE RECORDS SUMMARY | 2024-09-08 09:48 | XMS_ITS | Encounter Summary ---
Author Organization [facility] Address [address] [place] [address] Care Team Providers Care Home Health Care Coordinator Name Role Phone Unavailable Primary Care Provider Unavailabl e Encounter Details Date Type Department Care Team (Late st Contact Info) Description 01/01/2019 Lab Requisition [facility] Care Pathology Lab [address] [place] [address] Mainor Zavaleta MD [address] [place] [address] Enlarged lymph nodes, unspecified Social History [...] AM CDT) Case Report Flow Cytometry Case: [id number] Authorizing Provider: Mainor Zavaleta MD Collected: 01/01/2019 08:24 AM Ordering Location: [facility] Care Pathology Lab Received: 01/01/2019 12:16 PM Pathologist: Omkar Houston MD Specimen: Lymph Node, ANNA PORTAL AORTIC LYMPH NODE 9 11:50 AM CDT [facility] Final Diagnosis Lymph node, periportal aortic, flow cytometric immunophenotypic analysis: - CD5-negative, [id number] mature B-cell lymphoma. - See interpretation. 9 11:50 AM [facility] PATHOLOGY LAB at 1150 CDT Flow Cytometry Interpretation The periportal aortic lymph [...] the flow cytometry specimen is reviewed for senior quality analyst purposes. Overall, the periportal aortic lymph node shows an evidence of involvement by CD5-negative, [id number]-[id number] mature B-cell lymphoma. Correlation with clinical findings and concurrent tissue biopsy ([id number]) is required. 9 11:50 AM [facility] PATH[facility] Flow Cytometry Results Differential Result Comment Flow Cell Count /uL 114,000 Total Viability % 79.0 Lymphocytes % 98 Dim CD45 Region % 1 Monocytes % 0 Granulocytes % 1 9 11:50 AM [facility] Reason for test Enlarged lymph nodes , unspecified 9 11:50 AM [facility] Client Specimen ID # [id number] 9 11:50 AM [facility] Number of markers 16 were performed. A-2 Flow CD3 A-4 Flow CD10 A-6 Flow CD20 A-7 Flow CD23 A-12 Flow CD2 A-13 Flow CD4 A-16 Flow CD1a A-3 Flow CD5 A-5 Flow CD19 A-8 Flow CD34 A-9 Flow CD45 A-14 Flow CD7 A-15 Flow CD8 A-17 Flow CD30 A-10 [place]+CD19+ A-11 Lambda+CD19+ 9 11:50 AM [facility] PATH[facility] Disclaimer Test performed at [facility], [address] [place] [address], [address]. *The established laboratory minimum viability is 70%. [...] complexity clinical testing. 9 11:50 AM CDT [facility] PATHOLOGY LAB Embedded Images 9 11:50 AM CDT [facility] PATHOLOGY LAB Pathology/Cytolo gy ENTIRE LYMPH NODE / Unknown 01/01/2019 8:24 AM CDT 01/01/2019 12:16 PM CDT Mainor Zavaleta MD LAB - PATHOLOGY/CYTOLOGY ORDER ROMAIN Final Result [facility] PATHOLOGY LAB [address] [phone] documented in this encounter Visit Diagnoses Diagnosis Enlarged lymph nodes, unspecified documented in this encounter
--- OUTSIDE RECORDS SUMMARY | 2024-09-08 09:48 | XMS_ITS ---
Author Organization [facility] Address [address] [facility] [address] [facility] [place] [address] Care Team Providers Care Assistant Pastry Chef Name Role Phone Chace Newman DO Primary Care Provider [phone] Srini Smith MD Unavailable [phone] Active Problems Problem Noted Date Diagnosed Date Pneumonia 04/05/2022 Assessment & Plan (04/06/2022 12:28 PM TRIMMING CUTTER MACHINE): Pt presented with productive cough and malaise. 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 On 2L O2. Likely 2/2 pna - Manage pna as elsewhere - Clinically improving with antibiotics. Wean O2 as tolerated Hyponatremia 04/05/2022 04/06/2022 Assessment & Plan (04/05/2022 1:09 PM TRIMMING CUTTER MACHINE): Na 1344 -> 139. 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
--- OUTSIDE RECORDS SUMMARY | 2024-09-08 09:48 | XMS_ITS | Clinical Summary ---
Author Organization [facility] [address] [place] [address] Care Team Providers Care Ton Container Filler Name Role Phone Chace Newman DO Primary Care Provider [phone] Srini Smith MD Unavailable [phone] Allergies Active Allergy Reactions Criticality Noted Date [...] 04/05/2022 Assessment & Plan (04/06/2022 12:28 PM RECRUITING CONSULTANT): Pt presented with productive cough and malaise. [...] 04/05/2022 Assessment & Plan (04/05/2022 7:59 AM RECRUITING CONSULTANT): - Home losartan and atenolol Elevated HDL 04/05/2022 Assessment & Plan (04/05/2022 8:01 AM RECRUITING CONSULTANT): - Home atorvastatin Diabetes mellitus type 2 without retinopathy Assessment & Plan (10/01/2019 9:02 AM CDT): -- No background diabetic retinopathy (SUPERVISOR WARPING DEPARTMENT) -- No neovascularization of the disc (NVD), [...] (CMS/HCC) Assessment & Plan (04/06/2022 12:29 PM RECRUITING CONSULTANT): - s/p Rituxan x4 ([id number]) - Now with PD with likely left kidney involvement - BR x6C held in setting of infection, restart once infection resolved - Follow up with Dr Smith outpt Type 2 diabetes mellitus without complication Encounter for colonoscopy barney e to history of adenomatous colonic polyps 04/16/2018 Overview (04/16/2018): Added automatically from request for surgery [id number] Ganglion of hand 01/16/2017 Resolved Problems Problem Noted Date Diagnosed Date Resolved Date Acute respiratory failure with hypoxia 04/05/2022 04/06/2022 Assessment & Plan (04/06/2022 12:29 PM RECRUITING CONSULTANT): SpO2 down to 88%. On 2L O2. Likely 2/2 pna - Manage pna as elsewhere - Clinically improving with antibiotics. Wean O2 as tolerated Hyponatremia 04/05/2022 04/06/2022 Assessment & Plan (04/05/2022 1:09 PM RECRUITING CONSULTANT): Na 1344 -> 139. 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 involvement - BR x6C held in setting of infection, restart once infection resolved - Follows with Dr Smith Encounters Date Type Department Care Team Description 09/03/2024 Documentation [facility] [facility] [address] [place] [address] SantiagoJune, A Appointment 09/02/2024 Telephone [facility] [address] [place] [phone] Jessica Luong, RN 09/01/2024 Telephone [facility] [address] [place] [phone] Jessica Luong, RN 08/15/2024 Telephone [facility] [address] [place] [phone] Jessica Luong, RN from Last 3 Months [...] on file Legal Sex Male 7:49 AM RECRUITING CONSULTANT Gender Identity Not on file Sexual Orientation Not on file Obstetrics History Last Filed Vital Signs Vital Sign Reading Time Taken Comments Blood Pressure 148/88 06/04/2024 10:22 AM CDT Pulse 68 06/04/2024 10:22 AM CDT Temperature 36.1 C (96.9 F) 06/04/2024 10:22 AM CDT Respiratory Rate 16 06/04/2024 10:22 AM CDT Oxygen Saturation 95% 06/04/2024 10:22 AM CDT Inhaled Oxygen Concentration - - Weight 59.9 kg (132 lb) 06/04/2024 10:16 AM CDT Height 180.3 cm (5' 10.98) 06/04/2024 10:16 AM CDT Body Mass Index 18.42 06/04/2024 10:16 AM CDT Plan of Treatment Health Maintenance Due Date [...] 2023 12/08/2021, 06/25/2021, 11/30/2020, Additional history exists Fall Risk Assessment 04/23/2024 04/23/2023 Influenza Vaccine (#1) 2024 , 12/01/2022, 12/01/2022, Additional history exists eGFR 06/04/2025 06/04/2024, 12/0 06/2023, 11/07/2023, Additional history exists Zoster Vaccine Completed 12/17/2018, [...] Priority Date/Time Associated Diagnosis Comments EGFR Routine 06/04/2024 10:11 AM CDT 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) COLONOSCOPY 04/23/2023 2:53 PM RECRUITING CONSULTANT HEMOGLOBIN A1C STAT 04/04/2022 1:00 AM RECRUITING CONSULTANT LIPID PANEL STAT 04/04/2022 1:00 AM RECRUITING CONSULTANT HEPATITIS C ANTIBODY Routine 01/22/2019 2:22 PM RECRUITING CONSULTANT Ace marginal zone B-cell lymphoma (HCC) from Last 3 Months or Most Recently Relevant to Health Maintenance Results * eGFR (06/04/2024 10:11 AM CDT) eGFR >90 >=60 mL/min/1. 73 m2 Comment: [...] interpretive data was last reviewed 2021. Blood 06/04/2024 10:1 1 AM CDT 06/04/2024 10:17 AM CDT us Srini Smith MD LAB BLOOD ORDERABLES Final R esult [facility] Department [place] [address] * Colonoscopy (04/23/2023 2:53 PM RECRUITING CONSULTANT) Anatomical Region Laterality Modality Other Narrative Procedure Note Radha Shaw MD - 04/23/2023 2:53 PM [facility] Patient Name: Konrad Nieto Procedure Date: 04/23/2023 2:53 PM Date of : 1945 Admit Type: Outpatient Age: 77 Gender: Male Attending MD: Radha Shaw M.D. Room: [facility] ENDOSCOPY ROOM 9 Note Status: Finalized Procedure: [...] The scope was passed under direct vision.The [id number] endoscope was introduced through the anus [...] On: 04/23/2023 2:53 PM Recognized by the [employer] for promoting quality in endoscopy us Radha Shaw MD ENDOSCOPY PROCEDURES Final Res ult * (ABNORMAL) Hemoglobin A1c (04/04/2022 1:00 AM RECRUITING CONSULTANT) Hgb A1C 7.9(H) 4.0 - 5.6 % [...] a fasting glucose. Blood 04/04/2022 1:00 AM RECRUITING CONSULTANT 04/04/2022 1:45 AM RECRUITING CONSULTANT Srini Smith MD LAB BLOOD ORDERABLES Final R esult [facility] [place] [address] * Lipid panel (04/04/2022 1:00 AM RECRUITING CONSULTANT) Cholesterol 94 30 - 199 mg/dL [facility] Comment: Interpretive Data Ages < or = [...] revised on 2017. Triglycerides 51 <=149 mg/dL [facility] Comment: Interpretive Data Ages < or = [...] revised on 2017. HDL 53 >=40 mg/dL [facility] Comment: Interpretive Data Ages < or = [...] on 2017. LDL, calculated 31 <=129 mg/dL [facility] Comment: Interpretive Data Ages < or = [...] revised on 2017. Non-HDL Cholesterol 41 mg/dL [facility] Comment: Interpretive Data Ages < or [...] last revised on 2017. Chol/HDL ratio 2 [facility] Blood 04/04/2022 1:00 AM RECRUITING CONSULTANT 04/04/2022 1:42 AM RECRUITING CONSULTANT us Srini Smith MD LAB BLOOD ORDERABLES Final R esult Performing Organization Address City/[facility]/ZIP Co de Phone Number [facility] [place] [address] * Hepatitis C antibody (01/22/2019 2:22 PM RECRUITING CONSULTANT) Hep C Ab Nonreactive Nonreactive [facility] Comment: Interpretive Data Positive results should be confirmed by a molecular method. If positive, a second separately collected sample should be submitted for Hepatitis C Virus (HCV) RNA Detection and Quantitation by Real-Time Reverse Field Enumerator-PCR (RT-PCR). Current interpretive data was last revised on 2016. Blood specimen (specimen) 01/22/2019 2:22 PM RECRUITING CONSULTANT 01/22/2019 2:35 PM RECRUITING CONSULTANT us Annie donald NP LAB MICROBIOLOGY - GENERAL ORDERABLES Edited Result - Final Performing Organization Address City/[facility]/ZIP Co de Phone Number [facility] Department [place] [address] from Last 3 Months or Most Recently Relevant to Health Maintenance Insurance [facility] MEDICARE [facility] MEDICARE Address: [place] [address] [employer]HC MEDICARE ADVANTAGE [facility] MEDICARE Address: [place] [id number] [address] [id number] Advance Directives For more information, please contact: [phone] * Full Code (Latest Code Status on File) Date Activated Date Inactivated Comments 04/23/2023 3:07 PM 04/23/2023 8:55 PM * Full Code Date Activated Date Inactivated Comments 04/03/2022 11:40 PM 04/06/2022 9:40 PM * Full Code Date Activated Date Inactivated Comments 04/26/2018 6:57 AM 04/26/2018 1:31 PM Care Teams Ton Container Filler Relationship Specialty Start Date End Date Chace Newman DO PCP - General Family Medicine 04/04/22 Srini Smith MD [address] [facility] MEDICAL ONCOLOGY, [address] [place] [address] Medical Oncologist/Spray Unit Feeder Medical Oncology 04/07/22
--- OUTSIDE RECORDS SUMMARY | 2024-09-08 09:48 | XMS_ITS | Encounter Summary ---
Author Organization [facility] Address [address] [place] [address] Phone Care Team Providers Care Airport Shuttle Driver Name Role Phone Kun Oconnor MD Primary Care Provider [phone] Chace eNwman DO Primary Care Provider [phone] Srini Smith MD Unavailable [phone] Encounter Details Date Type Department Care Team (Latest Contact Info) Description 07/18/2019 Orders Only [facility] Scanning, Provider Social History Tobacco Use Types Packs/Day Years Used Date Smoking Tobacco: Never Smokeless Tobacco: Never Sex and Gender Information Value Date Recorded Sex Assigned at Not on file Legal Sex Male 7:49 AM ENGINEERING LAB TECHNICIAN Gender Identity Not on file Sexual Orientation [...] on filedocumented in this encounter Care Teams Airport Shuttle Driver Relationship Specialty Start Date End Date Kun Oconnor MD [address] [place], [place] [id number] PCP - General 12/29/16 04/03/22 Chace Newman DO [address] [place] [address] PCP - General Family Medicine 04/04/22 Srini Smith MD [address] [facility] MEDICAL ONCOLOGY, [address] [place] [address] Medical Oncologist/Care Transition Mgr Medical Oncology 04/07/22 documented as of this encounter
--- OUTSIDE RECORDS SUMMARY | 2024-09-08 09:48 | XMS_ITS | Referral Summary ---
Author Organization [facility] [address] Address [address] [place] [address] Care Team Providers Care Non Licensed Nuclear Equipment Operator Name Role Phone Chace Newman DO Primary Care Provider Srini Smith MD Unavailable [phone] Encounters Date Type Department Care Team Description 09/03/2024 Documentation [facility] [address] [facility] Floor 6 [place] [address] [place], [facility] Appointment 09/02/2024 Telephone [facility] [address] [place] [phone] Jessica Luong, RN 09/01/2024 Telephone [facility] [address] [place] [phone] Jessica Luong, RN 08/15/2024 Telephone [facility] [address] [place] [phone] Jessica Luong, RN from Last 3 Months Allergies Active Allergy Reactions Criticality Noted Date Comments Rituximab Other (See comments) Low 03/19/2019 Sore throat, itching Medications atenolol (TENORMIN) 50 mg tablet 9 Active atorvastatin (LIPITOR) 10 mg tablet 9 Active glimepiride (AMARYL) 2 mg tabletIndicatio ns:type 2 diabetes mellitus TAKE 1/2 T PO D WITH BREAKFAST AND 1 T PO QHS WITH DINNER 3 02/04/201 9 Active losartan (COZAAR) 50 mg tablet [...] 04/05/2022 Assessment & Plan (04/06/2022 12:28 PM REGIONAL ENGAGEMENT CONSULTANT): Pt presented with productive cough and [...] 04/05/2022 Assessment & Plan (04/05/2022 7:59 AM REGIONAL ENGAGEMENT CONSULTANT): - Home losartan and atenolol Elevated HDL 04/05/2022 Assessment & Plan (04/05/2022 8:01 AM REGIONAL ENGAGEMENT CONSULTANT): - Home atorvastatin Diabetes mellitus type 2 without retinopathy Assessment & Plan (10/01/2019 9:02 AM CDT): -- No background diabetic retinopathy (CLUB FORMER) -- No neovascularization of the disc (NVD), [...] (CMS/HCC) Assessment & Plan (04/06/2022 12:29 PM REGIONAL ENGAGEMENT CONSULTANT): - s/p Rituxan x4 () - Now with PD with 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 On 2L O2. Likely 2/2 pna - Manage pna as elsewhere - Clinically improving with antibiotics. Wean O2 as tolerated Hyponatremia 04/05/2022 04/06/2022 Assessment & Plan (04/05/2022 1:09 PM REGIONAL ENGAGEMENT CONSULTANT): Na 1344 -> 139. 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) COLONOSCOPY 04/23/2023 2:53 PM REGIONAL ENGAGEMENT CONSULTANT HEMOGLOBIN A1C STAT 04/04/2022 1:00 AM REGIONAL ENGAGEMENT CONSULTANT LIPID PANEL STAT 04/04/2022 1:00 AM REGIONAL ENGAGEMENT CONSULTANT HEPATITIS C ANTIBODY Routine 01/22/2019 2:22 PM REGIONAL ENGAGEMENT CONSULTANT Ace marginal zone B-cell lymphoma (HCC) [...] 1 AM CDT 06/04/2024 10:17 AM CDT Srini Smith MD LAB BLOOD ORDERABLES Final R esult [facility] [address] [facility] Department [place] [address] * Colonoscopy (04/23/2023 2:53 PM REGIONAL ENGAGEMENT CONSULTANT) Anatomical Region Laterality Modality Other Narrative Procedure Note Radha Shaw MD - 04/23/2023 2:53 PM [facility] Patient Name: Konrad Nieto Procedure Date: 04/23/2023 2:53 PM Date of : 1945 Admit Type: Outpatient Age: 77 Gender: Male Attending MD: Radha Shaw M.D. Room: [facility] 9 Note Status: Finalized Procedure: [...] The scope was passed under direct vision.The [id number] endoscope was introduced through the anus [...] On: 04/23/2023 2:53 PM Recognized by the [place] [employer] for promoting quality in endoscopy Radha Shaw MD ENDOSCOPY PROCEDURES Final Res ult * (ABNORMAL) Hemoglobin A1c (04/04/2022 1:00 AM REGIONAL ENGAGEMENT CONSULTANT) Hgb A1C 7.9(H) 4.0 - 5.6 % [facility] Estimated Average Glucose 180 mg/dL [facility] Comment: The ADA recommends reporting an estimated Average Glucose (eAG) with all Hemoglobin A1c results using the equation derived from a study of 507 normal and diabetic adults. Minority populations were underrepresented and children were not included. (Diabetes Care 2020; 43(S1): S66-S76). The eAG is not equivalent to a fasting glucose. Blood 04/04/2022 1:00 AM REGIONAL ENGAGEMENT CONSULTANT 04/04/2022 1:45 AM REGIONAL ENGAGEMENT CONSULTANT Srini Smith MD LAB BLOOD ORDERABLES Final R esult [facility] [address] [facility] Department [place] [address] * Lipid panel (04/04/2022 1:00 AM REGIONAL ENGAGEMENT CONSULTANT) Cholesterol 94 30 - 199 mg/dL [facility] Comment: Interpretive Data Ages < or [...] revised on 2017. Triglycerides 51 <=149 mg/dL [facility] Comment: Interpretive Data Ages < or [...] revised on 2017. HDL 53 >=40 mg/dL [facility] Comment: Interpretive Data Ages < or = [...] on 2017. LDL, calculated 31 <=129 mg/dL [facility] Comment: Interpretive Data Ages < or = [...] revised on 2017. Non-HDL Cholesterol 41 mg/dL [facility] Comment: Interpretive Data Ages < or [...] Risk Reduction in Children and Adolescents. Pediatrics 2010;128:S213 2. NCEP Expert Panel. Circulation 2004;110:227 Current Interpretive Data was last revised on 2017. Chol/HDL ratio 2 [facility] Blood 04/04/2022 1:00 AM REGIONAL ENGAGEMENT CONSULTANT 04/04/2022 1:42 AM REGIONAL ENGAGEMENT CONSULTANT us Srini Smith MD LAB BLOOD ORDERABLES Final R esult Performing Organization Address [facility] Co de Phone Number [facility] Department [place] [address] * Hepatitis C antibody (01/22/2019 2:22 PM REGIONAL ENGAGEMENT CONSULTANT) Hep C Ab Nonreactive Nonreactive [facility] Comment: Interpretive Data Positive results should be confirmed by a molecular method. If positive, a second separately collected sample should be submitted for Hepatitis C Virus (HCV) RNA Detection and Quantitation by Real-Time Reverse Metal Tube Cutter-PCR (RT-PCR). Current interpretive data was last revised on 2016. Blood specimen (specimen) 01/22/2019 2:22 PM REGIONAL ENGAGEMENT CONSULTANT 01/22/2019 2:35 PM REGIONAL ENGAGEMENT CONSULTANT us Annie donald NP LAB MICROBIOLOGY - GENERAL ORDERABLES Edited Result - Final Performing Organization Address [facility] de Phone Number [facility] Department [place] [address] from Last 3 Months or Most Recently Relevant to Health Maintenance Insurance [facility] MEDICARE ADVANTAGE [facility]IC[facility] Address: [address] [address] [place] [address] [facility] MEDICARE ADVANTAGE [facility]IC[facility] Address: [address] [address] [place] [address] Advance Directives For more information, please contact: [phone] * Full Code (Latest Code Status on File) Date Activated Date Inactivated Comments 04/23/2023 3:07 PM 04/23/2023 8:55 PM * Full Code Date Activated Date Inactivated Comments 04/03/2022 11:40 PM 04/06/2022 9:40 PM * Full Code Date Activated Date Inactivated Comments 04/26/2018 6:57 AM 04/26/2018 1:31 PM Care Teams Non Licensed Nuclear Equipment Operator Relationship Specialty Start Date End Date Chace Newman DO PCP - General Family Medicine 04/04/22 Srini Smith MD [address] [facility] DIV IM MEDICAL ONCOLOGY, [address] [place] [address] Medical Oncologist/Wire Weaver Cloth Medical Oncology 04/07/22
--- OUTSIDE RECORDS SUMMARY | 2024-09-08 09:48 | XMS_ITS | Encounter Summary ---
Author Organization [facility] Address [address] [place] [address] Phone Care Team Providers Care Diesel Truck Technician Name Role Phone Kun Oconnor MD Primary Care Provider [phone] Chace Newman DO Primary Care Provider [phone] Srini Smith MD Unavailable [phone] Encounter Details Date Type Department Care Team (Latest Contact Info) Description 07/21/2019 Orders Only [facility] Scanning, Provider Social History Tobacco Use Types Packs/Day Years Used Date Smoking Tobacco: Never Smokeless Tobacco: Never Sex and Gender Information Value Date Recorded Sex Assigned at Not on file Legal Sex Male 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
[2024-09-08 13:24] LABS: Hematocrit 40.6 % (42.0-52.0); Hemoglobin 13.1 g/dL (14.0-18.0); Immature Granulocyte Percent A 0.4 % (0-0.5); Lymphocytes Absolute Auto 0.40 K/mm3 (0.9-3.2); Mean Corpuscular HGB Conc 32.3 g/dl (32-36); Mean Corpuscular Hemoglobin 32.4 pg (26-34); Mean Corpuscular Volume 100.5 fl (80-100); Nucleated Red Blood Cells Absolute Auto 0.000 K/mm3 (0.0-0.012); Nucleated Red Blood Cells Perc 0.0 % (0.0-0.2); Platelet Count Result 273 k/mm3 (150-375); Red Blood Count 4.04 M/mm3 (4.6-6.20); White Blood Count 4.5 K/mm3 (4.5-10.0)
[2024-09-08 13:38] LABS: Alanine Aminotransferase 9 U/L (6-50); Albumin Level 4.3 g/dL (3.5-5.1); Alkaline Phosphatase 67 U/L (38-126); Anion Gap 9 mmol/L (4-12); Aspartate Amino Transferase 28 U/L (17-59); Bilirubin,Total 0.5 mg/dL (0.2-1.3); Blood Urea Nitrogen 14 mg/dL (9-20); Calcium 9.7 mg/dL (8.4-10.2); Carbon Dioxide 29 mmol/L (22-30); Chloride 99 mmol/L (98-107); Cholesterol 183 mg/dL (0-200); Estimated Glomerular Filt Rate > 60; Glucose 154 mg/dL (65-110); HDL Direct 99 mg/dL; Potassium 3.9 mmol/L (3.4-5.0); Sodium 137 mmol/L (137-145); Total Protein 6.7 g/dL (6.3-8.2); Triglycerides 80 mg/dL (<150)
[2024-09-08 14:12] LABS: Thyroid Stimulating Hormone 1.590 uIU/mL (0.465-4.680)
[2024-09-08 14:15] LABS: Prostate Specific Antigen 0.2 ng/mL (< OR = 4.0)
[2024-09-08 14:31] LABS: Vitamin B12 415.0 pg/mL (239-931)
[2024-09-08 14:43] LABS: MALB Creatinine Ratio 46.5 mg/g (0-30)
[2024-09-08 15:51] LABS: Hemoglobin A1C 6.8 % (<5.7)
[2024-09-10 12:43] LABS: Red Blood Cell Folate 511 ng/mL RBC (>280)
[2024-09-10 13:13] LABS: Homocysteine. 28.8 umol/L (< or = 15.2)
[2024-09-11 09:33] LABS: Vitamin B6. 3.9 ng/mL (2.1-21.7)
[2024-09-11 16:23] LABS: Methylmalonic Acid. 200 nmol/L (69-390)
[2024-09-12 13:52] LABS: Vitamin B1. 6 nmol/L (8-30)
[2024-09-13 15:59] LABS: Vitamin D 1,25 (OH)2 Total 64 pg/mL (18-72); Vitamin D2 1,25 (OH)2 <8 pg/mL; Vitamin D3 1,25 (OH)2 64 pg/mL
== END 2024-09-08 09:42 | disposition home or self-care (01) ==
PROVIDERS: PCP Nurse Practitioner; Visit Provider Psychiatry & Neurology Neurology
DX: R41.89 Other symptoms and signs involving cognitive functions and awareness (principal); E55.9 Vitamin D deficiency, unspecified; E78.5 Hyperlipidemia, unspecified; Z11.59 Encounter for screening for other viral diseases; Z12.5 Encounter for screening for malignant neoplasm of prostate; E11.9 Type 2 diabetes mellitus without complications; D50.0 Iron deficiency anemia secondary to blood loss (chronic); F03.90 Unspecified dementia, unspecified severity, without behavioral disturbance, psychotic disturbance, mood disturbance, and anxiety; E03.9 Hypothyroidism, unspecified; I63.9 Cerebral infarction, unspecified; F01.50 Vascular dementia, unspecified severity, without behavioral disturbance, psychotic disturbance, mood disturbance, and anxiety; I35.0 Nonrheumatic aortic (valve) stenosis
CPT/HCPCS: 36415; 80053; 80061; 82043; 82607; 82652; 82747; 83036; 83090; 83921; 84153; 84207; 84425; 84443; 85025; 86803; G0103

== ENCOUNTER 2024-09-17 20:13 | Emergency (ER) | payer MEDICARE, SELFPAY ==
--- NOTE | ~2024-09-17 | CT_ITS ---
EXAMINATION: CT lumbar spine wo con DATE: 09/17/2024 23:56 INDICATION: low back pain, hx lymphoma . TECHNIQUE: Computed tomography (CT) of the lumbar spine was performed without intravenous contrast. A utomated exposure control and iterative reconstruction technique were employed. The dose-length produ ct was 222.68 mGy-cm. COMPARISON: CT abdomen pelvis 08/06/2018. FINDINGS: Stable right lower lobe pulmonary nodule, likely granuloma. Coronary artery calcifications. Paucity o f abdominal fat. Atherosclerotic calcifications of the aorta and additional arteries. 3 cm indetermin ate density exophytic left renal lesion. Mesenteric edema. 5 nonrib-bearing lumbar-type vertebral bodies. Pedicles intact. Minimal retrolisthesis at L4-5, presu mably secondary to degenerative changes. Vertebral body heights preserved. Moderate disc space narrow ing at L2-3. Severe disc space narrowing at L5-S1. Severe bilateral neural foraminal narrowing at L5- S1. No severe central canal narrowing. Moderate facet arthropathy at L5-S1. No lytic lesions. Multipl e sclerotic foci, likely representing bone islands. IMPRESSION: No acute fracture or traumatic malalignment in the lumbar spine. Severe degenerative disc disease at L5-S1, with severe bilateral neural foraminal narrowing. 3 cm indeterminate density exophytic left renal lesion, may represent a proteinaceous or hemorrhagic cyst. Recommend timely outpatient MRI or CT without and with contrast for further evaluation. Nonspecific mesenteric edema. Reviewed, dictated and finalized at location K. IMPRESSION: No acute fracture or traumatic malalignment in the lumbar spine. Severe degener ative disc disease at L5-S1, with severe bilateral neural foraminal narrowing. 3 cm indeterminate density exophytic left renal lesion, may represent a protein aceous or hemorrhagic cyst. Recommend timely outpatient MRI or CT without and w ith contrast for further evaluation. Nonspecific mesenteric edema.
--- OUTSIDE RECORDS SUMMARY | 2024-09-17 20:14 | XMS_ITS | Encounter Summary ---
Author Organization [facility] Address [address] [place] [address] Phone Care Team Providers Care Geological Scout Name Role Phone Srini Smith MD Unavailable [phone] Courtney Pitt NP Primary Care Provider [phone] Encounter Details Date Type Department Care Team (Late st Contact Info) Description 09/17/2024 Documentation [facility] Oncology [facility] Floor 6 [place] [id number] Jessica Luong, RN Social History Tobacco Use Types Packs/Day Years Used Date Smoking Tobacco: Never Smokeless Tobacco: Never PHQ-2 Answer Date Recorded PHQ-2 Total Score [...] on file Legal Sex Male 7:[address]PERATOR [address] SUPERVISOR Gender Identity Not on file Sexual Orientation Not on file documented as of this encounter Nursing Notes * Jessica Luong, RN - 09/17/2024 5:21 PM CDT Contacted social work to assist pt re: social needs at request of TOOL AND MACHINE MAINTAINER during ROV today. Petar met with him today. See her notes. documented in this encounter Plan of Treatment Not on file documented as of this encounter Visit Diagnoses Not on filedocumented in this encounter Care Teams Geological Scout Relationship Specialty Start Date End Date Courtney Pitt NP [address] [facility] [address] [place] [address] PCP - General Internal Medicine 09/17/24 Srini Smith MD [address] [facility] MEDICAL ONCOLOGY, [facility] [address] [place] [address] Medical Oncologist/Marine Mammal Trainer Medical Oncology 04/07/22 documented as of this encounter
--- OUTSIDE RECORDS SUMMARY | 2024-09-17 20:14 | XMS_ITS | Encounter Summary ---
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) Social History Tobacco Use Types Packs/Day Years [...] on file Legal Sex Male 7:49 AM ASSESSMENT ANALYST Gender Identity Not on file Sexual Orientation Not on file documented as of this encounter Plan of Treatment Not on file documented as of this encounter Visit Diagnoses Diagnosis 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 [address] [place] [address] PCP - General Internal Medicine 09/17/24 Srini Smith MD [address] [facility] MEDICAL ONCOLOGY, [facility] 7A, [address]B, [address] [place] [address] Medical Oncologist/Sports Anchor Medical Oncology 04/07/22 documented as of this encounter
--- OUTSIDE RECORDS SUMMARY | 2024-09-17 20:14 | XMS_ITS | Clinical Summary ---
Author Organization [facility] Address [address] [facility] [place] [address] Care Team Providers Care Manager Underwriting Name Role Phone Unavailable Primary Care Provider Unavailabl e Source Comments [facility],non-owned Affiliates and Associated Physician Practices is amultiple site organization consisting of ambulatory clinics and hospital sitesin [place], [place], [place] and [place]. This disclosure is being madepursuant to the Care Everywhere program and may not contain all information available regarding this patient. Last updated 17.[facility] [employer] Social History Tobacco Use Types Packs/Day Years [...]
--- OUTSIDE RECORDS SUMMARY | 2024-09-17 20:14 | XMS_ITS | Encounter Summary ---
Author Organization [facility] Address [address] [place] [address] Phone Care Team Providers Care Director Geophysical Laboratory Name Role Phone Srini Smith MD Unavailable [phone] Courtney Pitt NP Primary Care Provider [phone] Encounter Details Date Type Department Care Team (Late st Contact Info) Description 09/17/2024 10:30 AM CDT Office Visit [facility] Oncology 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 Gender Identity Not on file Sexual Orientation Not on file documented as of this encounter Last Filed Vital Signs Vital Sign Reading Time Taken Comments Blood Pressure 200/99 09/17/2024 10:18 AM CDT Pulse 75 09/17/2024 10:18 AM CDT Temperature 36.3 C (97.4 F) 09/17/2024 10:18 AM CDT Respiratory Rate 16 09/17/2024 10:18 AM CDT Oxygen Saturation 95% 09/17/2024 10:18 AM CDT Inhaled Oxygen Concentration - - Weight 55.5 kg (122 lb 6.4 oz) 09/17/2024 10:18 AM CDT Height - - Body Mass Index 17.08 06/04/2024 10:16 AM CDT documented in this encounter Progress Notes * Annie Knight, TANYARD WORKER - 09/17/2024 10:30 AM CDT ROV Note Konrad Nieto is a 78 y.o. male with MZL. Oncology History Overview Note DIAGNOSIS: Marginal zone lymphoma diagnosed 01/01/19 by laparoscopic excisional biopsy of mesenteric lymph nodes Multiple nodes excised with LN up to 6cm in size PET 11/12/18 with mild uptake in mesenteric nodes and mildly increased marrow uptake at T5 and L3 vertebral bodies Stage IV TREATMENT AND DISEASE COURSE: 03/19/19-11/06/19 Rituxan x 4 and Vit D on Ilyad, dc d/t stable disease 03/16/21 CT-->mild PD 03/15/22 CT CAP--> Mild PD in abd/pelvic LAD ~ 4.5cm, stable pulmonary nodules, mild mediastinal and axillary LAD ~1.2cm, concern for lymphoma in L kidney 04/12/22-08/31/22 Bendamustine + Rituxan x 6 10/11/22 CT NCAP--> Resolution of axillary, mediastinal LAD, mild residual abd/pelvic LAD up to 2cm 11/07/23 CT CAP--> Continued decrease in abdominal LAD, no evidence of PD, increasing size of L renal mass concerning for RCC, per urology 02/25: repeat MRI in 6 mos 05/22/[address]--> small pulmonary nodules, LungRADS2, moderate to advanced emphysema, no lymphadenopathy 05/22/24 Brain MRI--> Severe chronic microvascular ischemic change, moderate generalized atrophy No history exists. Interval History: We last saw him 3 months ago. He says he is doing about the same. We note that he has lost 20 lbs in the past 6 months. His BMI is 17. He attributes this to limited access to food. He reports having 5 meals per week through meals on wheels, but says he rarely has other food around the house. He is no longer driving. He says his appetite is good and says he would eat more if food was available. Hedenies abdominal pain. He denies any signs or symptoms be worrisome for disease recurrence. He denies significant infections. Medications: Current Outpatient Medications: atenolol (TENORMIN) 50 mg tablet, , Disp: , Rfl: atorvastatin (LIPITOR) 10 mg tablet, , Disp: , Rfl: escitalopram (LEXAPRO) 10 mg tablet, Take 1 tablet (10 mg total) by mouth daily, Disp: , Rfl: glimepiride (AMARYL) 2 mg tablet, TAKE 1/2 T PO D WITH BREAKFAST AND 1 T PO QHS WITH DINNER, Disp: , Rfl: 3 losartan (COZAAR) 50 mg tablet, , Disp: , Rfl: metFORMIN (GLUCOPHAGE) 500 mg tablet, Take 1 tablet (500 mg total) by mouth 2 (two) times a day with meals Take 2 tabs BID, Disp: , Rfl: mirtazapine (REMERON) 15 mg tablet, Take 1 tablet (15 mg total) by mouth nightly, Disp: 90 tablet, Rfl: 2 pioglitazone (ACTOS) 45 mg tablet, Take 1 tablet (45 mg total) by mouth daily, Disp: , Rfl: traZODone (DESYREL) 50 mg tablet, , Disp: , Rfl: Physical Exam: Vitals: 09/17/24 1018 BP: (!) 200/99 BP Location: Right arm Pulse: 75 Resp: 16 Temp: 36.3 ??C (97.4 ??F) TempSrc: Oral SpO2: 95% Weight: 55.5 kg (122 lb 6.4 oz) ECOG PS: 0 HEENT: sclera clear. No lesions in oropharyx. Lymph nodes: No cervical, supraclavicular, axillary, epitrochlear, or inguinal adenopathy Lungs: clear to auscultation-bilaterally. Heart: regular rate and rhythm, without click, rubs, gallops, or murmurs. Abdomen: Bowel sounds normal. Soft. Non tender. No hepato or splenomegaly. Extremities: No edema. Skin: No worrisome skin lesions. Neuro: No focal neurologic findings Labs: Recent Results (from the past 48 hours) Lactate dehydrogenase (LD) Collection Time: 09/17/24 9:43 AM Result Value Ref Range Lactate dehydrogenase (LDH) 193 100 - 250 Units/L Comprehensive metabolic panel Collection Time: 09/17/24 9:43 AM Result Value Ref Range Sodium 141 135 - 145 mmol/L Potassium, pl 4.0 3.3 - 4.9 mmol/L Chloride 99 97 - 110 mmol/L CO2 33 (H) 22 - 32 mmol/L Anion gap 9 2 - 15 mmol/L BUN 9 6 - 25 mg/dL Creatinine 0.76 (L) 0.80 - 1.30 mg/dL Glucose 192 70 - 199 mg/dL Calcium 9.3 8.5 - 10.3 mg/dL Bilirubin, total 0.7 0.1 - 1.2 mg/dL Protein, pl 6.5 6.5 - 8.5 g/dL Albumin 4.3 3.5 - 5.0 g/dL Alk phos 91 40 - 130 Units/L ALT 22 7 - 55 Units/L AST 20 10 - 50 Units/L CBC with auto differential Collection Time: 09/17/24 9:43 AM Result Value Ref Range WBC 4.78 3.80 - 9.90 K/cumm Hgb 13.1 13.0 - 17.5 g/dL Hct 38.7 (L) 38.9 - 50.3 % Plt 252 150 - 400 K/cumm MPV 7.7 6.8 - 10.4 fL RBC 4.02 (L) 4.30 - 5.80 M/cumm MCV 96.1 81.3 - 96.4 fL MCH 32.5 27.1 - 33.3 pg MCHC 33.8 32.3 - 35.7 g/dL RDW CV 14.8 11.1 - 14.9 % NRBC abs 0.00 0.00 - 0.01 K/cumm Differential, auto Collection Time: 09/17/24 9:43 AM Result Value Ref Range Neutrophil abs 3.68 1.50 - 6.50 K/cumm Lymphocyte abs 0.48 (L) 0.80 - 3.30 K/cumm Monocyte abs 0.51 0.20 - 0.80 K/cumm Eosinophil abs 0.09 0.00 - 0.50 K/cumm Basophil abs 0.03 0.00 - 0.10 K/cumm Neutrophil pct 77.0 % Lymphocyte pct 10.0 % Monocyte pct 10.6 % Eosinophil pct 1.9 % Basophil pct 0.6 % eGFR Collection Time: 09/17/24 9:43 AM Result Value Ref Range eGFR >90 >=60 mL/min/1.73 m2 Imaging (personally reviewed by me): None today. Assessment/Plan: MZL. This is a 78-year-old gentleman with a history of marginal zone lymphoma who was initially treated with Rituxan and vitamin D on a clinical trial in 2019. He was eventually taken off study due to stable disease, and was managed on observation only. CT scans performed in March 2022 demonstrated disease progression, so we opted to start 2nd line therapy with bendamustine and Rituxan. He completed 6 cycles of therapy in August of 2022. End of treatment CT showed a very good response to treatment. There is nothing on today's evaluation that would suggest disease recurrence. We will see him back in 6 months. Weight loss. Continues on Remeron. He continues to lose weight. His BMI is down to 17 today. He reports lack of access to food. Our social media senior associate will meet with him today. Incidental findings. 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 Urology monitoring. Dementia. Recent diagnosis. No interventions at this time. Continues to live alone as discussed above. Daughter is POA. Hypertension. His blood pressure is consistently elevated when he comes to see us. He says he is taking his medication. Vaccines. He is up to date on Shingrix, RSV, Covid booster flu and PCV20. Recommended updated flu shot and Covid booster. Disposition. He asked good questions which I answered to the best of my ability. He knows to contact us with any questions or concerns before his next appointment. 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 escitalopram (LEXAPRO) 10 mg tablet Take 1 tablet (10 mg total) by mouth daily 09/01/2024 added in this encounter Orders Appointment Requests Count Last Ordered Date Fi rst Ordered Date ONCBCN CLINIC APPOINTMENT REQUEST 2 025 ONCBCN LAB APPOINTMENT 1 09/17/2024 documented in this encounter Care Teams Director Geophysical Laboratory Relationship Specialty Start Date End Date Courtney Pitt NP [facility] [address] [place] [address] PCP - General Internal Medicine 09/17/24 Srini Smith MD [address] [facility] MEDICAL ONCOLOGY, [facility] [address] [place] [address] Medical Oncologist/Renal Dietitian Medical Oncology 04/07/22 documented as of this encounter
--- OUTSIDE RECORDS SUMMARY | 2024-09-17 20:14 | XMS_ITS | Encounter Summary ---
Author Organization [facility] Address [address] [place] [address] Care Team Providers Care Malt House Operator Name Role Phone Srini Smith MD Unavailable [phone] Courtney Pitt NP Primary Care Provider [phone] Encounter Details Date Type Department Care Team (Late st Contact Info) Description 09/17/2024 Documentation [facility] Social Work [address] [place] [address] Petar Sweeney MSW Social History Tobacco Use Types Packs/Day Years [...] on file Legal Sex Male 7:49 AM [employer] Gender Identity Not on file Sexual Orientation Not on file documented as of this encounter Plan of Treatment Not on file documented as of this encounter Visit Diagnoses Not on filedocumented in this encounter Care Teams Malt House Operator Relationship Specialty Start Date End Date Courtney Pitt NP [facility] [address] [place] [phone] PCP - General Internal Medicine 09/17/24 Srini Smith MD [address] [facility] DIV IM MEDICAL ONCOLOGY, [address], [address], [address] [place] [address] Medical Oncologist/Digital Design Engineer Medical Oncology 04/07/22 documented as of this encounter
--- OUTSIDE RECORDS SUMMARY | 2024-09-17 20:15 | XMS_ITS | Encounter Summary ---
Author Organization [facility] Address [address] [place] [address] Care Team Providers Care Aerospace Stress Engineer Name Role Phone Unavailable Primary Care Provider Unavailabl e Encounter Details Date Type Department Care Team (Late st Contact Info) Description 01/03/2019 Lab Requisition [facility] Care Pathology Lab [address] [place] [address] Mainor Zavaleta MD [address] [place] [id number] Social History Tobacco Use Types Packs/Day [...] CDT) Case Report Surgical Pathology Report Case: [id number] Authorizing Provider: Mainor Zavaleta MD Collected: 01/01/2019 09:25 AM Ordering Location: [facility] Received: 01/03/2019 09:41 AM Pathologist: Lu King MD Specimen: Lymph Node Biopsy, [id number] 01/06/2019 11:46 AM [facility] PATH[facility] Final Diagnosis Lymph nodes, periportal aortic, excision: - Marginal zone lymphoma. - See description. 01/06/2019 11:46 AM [facility] at [address] [employer] OPERATOR Microscopic Description and Comment Review of [...] are performed on block B3 in the [facility] Department of Pathology, with appropriately reactive controls, and demonstrate the followings: CD20 and BCL-2 are positive in the neoplastic cells. CD3, CD5, CD10, CD23, CD43, cyclin D1, and MUM-1 are negative in the neoplastic cells. CD23 shows a few residual follicular dendritic cell meshworks that are colonized by neoplastic cells. Concurrent lymph node flow cytometry ([id number]) detects a CD5-negative, NU68-drpsdyen mature B-cell lymphoma. 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 Correlation with clinical findings and relevant cytogenetic/molecular testing is required. KR/MM 01/06/2019 11:46 AM [facility] Clinical History Lymphadenopathy. 01/06/2019 11:46 AM [facility] Materials Received Received from [facility], [place], [place] are 5 slides and 5 blocks labeled Konrad Nieto and [id number]. All original materials are returned along with a copy of our report. 01/06/2019 11:46 AM [facility] Disclaimer The performance characteristics of all immunohistochemical and indirect immunofluorescence stains (if any) cited in this report were determined by the Histopathology Laboratory of [facility]. Some of these tests were developed by [...] interpretation of this case is performed by [facility] Pathology at [facility], [address] [place] [id number]. 01/06/2019 11:46 AM [facility] Embedded Images 01/06/2019 11:46 AM [facility] Pathology/Cytolo gy BIOPSY OF LYMPH NODE / Unknown 01/01/2019 9:25 AM CDT 01/03/2019 9:41 AM CDT Mainor Zavaleta MD LAB - PATHOLOGY/CYTOLOGY ORDER [place] Final Result [facility] PATHOLOGY LAB [address] [place] [address] documented in this encounter Visit Diagnoses Not on filedocumented in this encounter
--- OUTSIDE RECORDS SUMMARY | 2024-09-17 20:15 | XMS_ITS | Clinical Summary ---
Author Organization [facility] Address [address] [facility] [place] [address] Care Team Providers Care Tile Grader Name Role Phone Srini Smith MD Unavailable [phone] Courtney Pitt NP Primary Care Provider [phone] Allergies Active Allergy Reactions Criticality Noted Date [...] mouth nightly 90 tablet 2 4 Active escitalopram (LEXAPRO) 10 mg tablet Take 1 tablet (10 mg total) by mouth daily 5 Active Active Problems Problem Noted Date Diagnosed Date Pneumonia 04/05/2022 Assessment & Plan (04/06/2022 12:28 PM COIL REWIND MACHINE OPERATOR): Pt presented with productive cough and malaise. [...] 04/05/2022 Assessment & Plan (04/05/2022 7:59 AM COIL REWIND MACHINE OPERATOR): - Home losartan and atenolol Elevated HDL 04/05/2022 Assessment & Plan (04/05/2022 8:01 AM COIL REWIND MACHINE OPERATOR): - Home atorvastatin Diabetes mellitus type 2 without retinopathy Assessment & Plan (10/01/2019 9:02 AM CDT): -- No background diabetic retinopathy (ASSOCIATE DIRECTOR OF BIOSTATISTICS) -- No neovascularization of the disc (NVD), [...] (CMS/HCC) Assessment & Plan (04/06/2022 12:29 PM COIL REWIND MACHINE OPERATOR): - s/p Rituxan x4 ([phone]) - Now with PD with likely left kidney involvement - BR x6C held in setting of infection, restart once infection resolved - Follow up with Dr Smith outpt Type 2 diabetes mellitus without complication Encounter for colonoscopy du e to history of adenomatous colonic polyps 04/16/2018 Overview (04/16/2018): Added automatically from request for surgery [id number] Ganglion of hand 01/16/2017 Resolved Problems Problem Noted Date Diagnosed Date Resolved Date Acute respiratory failure with hypoxia 04/05/2022 04/06/2022 Assessment & Plan (04/06/2022 12:29 PM COIL REWIND MACHINE OPERATOR): SpO2 down to 88%. On 2L O2. Likely 2/2 pna - Manage pna as elsewhere - Clinically improving with antibiotics. Wean O2 as tolerated Hyponatremia 04/05/2022 04/06/2022 Assessment & Plan (04/05/2022 1:09 PM COIL REWIND MACHINE OPERATOR): Na 1344 -> 139. 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/03/2022 023 Assessment & Plan (04/05/2022 7:53 AM COIL REWIND MACHINE OPERATOR): - s/p Rituxan x4 ([id number]) - Now with PD with likely left kidney involvement - BR x6C held in setting of infection, restart once infection resolved - Follows with Dr Smith Encounters Date Type Department Care Team Description 09/17/2024 10:30 AM CDT Office Visit [facility] [address] [place] [address] 6 [place] [address] Annie Knight NP Ace marginal zone B-cell lymphoma (CMS/HCC) ([facility]) 09/17/2024 10:15 AM CDT Lab [facility] [place] - Lab Collection [facility]0 [facility] Floor 6 [place] [address] Ace marginal zone B-cell lymphoma (CMS/HCC) ([facility]) 09/17/2024 9:30 AM CDT Lab [facility] Lab [address] [place] [address] 6 [place] [address] Ace marginal zone B-cell lymphoma (CMS/HCC) ([facility]) 09/17/2024 Documentation [facility] [address] [facility] Floor 6 [place] [address] Jessica Luong, RN 09/17/2024 Documentation [facility] Social Work 1 [place] [address] Petar Sweeney, BONE GLUE MAKER 09/15/2024 ACO Medication Access [facility] Accountable Care Organization [address] [place] [address] Carie Jonas, [facility] 09/03/2024 Documentation [facility] [address] [facility] 6 [place] [address] June, A Appointment 09/02/2024 Telephone [facility] [address] [place] [phone] Jessica Luong, RN 09/01/2024 Telephone [facility] [address] [place] [phone] Jessica Luong, RN 08/15/2024 Telephone [facility] [address] [place] [phone] Jessica Luong, RN from Last 3 Months [...] on file Legal Sex Male 7:49 AM COIL REWIND MACHINE OPERATOR Gender Identity Not on file Sexual Orientation [...] 6.4 oz) 09/17/2024 10:18 AM CDT Height 180.3 cm (5' 10.98) 06/04/2024 10:16 AM CDT Body Mass Index 17.08 06/04/2024 10:16 AM CDT Plan of Treatment [...] , 12/01/2022, 12/01/2022, Additional history exists eGFR 09/17/2025 09/17/2024, 04/0 04/2024, 02/06/2024, Additional history exists Zoster Vaccine Completed 12/17/2018, [...] Priority Date/Time Associated Diagnosis Comments EGFR Routine 09/17/2024 9:43 AM CDT 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) DIFFERENTIAL AUTO Routine 09/17/2024 9:4 3 AM CDT 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) BETA 2 MICROGLOBULIN SERUM Routine 09/17/2024 9:43 AM CDT 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) CBC WITH AUTO DIFFERENTIAL Routine 09/17/2024 9:43 AM CDT 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) COMPREHENSIVE METABOLIC PANEL Routine 09/17/2024 9:43 AM CDT 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) LACTATE DEHYDROGENASE Routine 09/17/2024 9:43 AM CDT 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) COLONOSCOPY 04/23/2023 2:53 PM COIL REWIND MACHINE OPERATOR HEMOGLOBIN A1C STAT 04/04/2022 1:00 AM COIL REWIND MACHINE OPERATOR LIPID PANEL STAT 04/04/2022 1:00 AM COIL REWIND MACHINE OPERATOR HEPATITIS C ANTIBODY Routine 01/22/2019 2:22 PM COIL REWIND MACHINE OPERATOR Ace marginal zone B-cell lymphoma (HCC) from Last 3 Months or Most Recently Relevant to Health Maintenance Results * eGFR (09/17/2024 9:43 AM CDT) eGFR >90 >=60 mL/min/1. 73 [...] interpretive data was last reviewed 2021. Blood 09/17/2024 9:43 AM CDT 09/17/2024 9:59 AM CDT us Srini Smith MD LAB BLOOD ORDERABLES Final R esult KATHARINE RIOS [facility] Department [place] [address] * (ABNORMAL) Differential, auto (09/17/2024 9:43 AM CDT) Neutrophil abs 3.68 1.50 - 6.50 K/cumm Comment:Testing performed by : [facility], [address] [place] [address] Lymphocyte abs 0.48(L) 0.80 - 3.30 K/cumm KATHARINE RIOS Comment:Testing performed by : [facility], [address] [place], [place] [phone] Monocyte abs 0.51 0.20 - 0.80 K/cumm KATHARINE RIOS Comment:Testing performed by : [facility], [address] [place] [address] Eosinophil abs 0.09 0.00 - 0.50 K/cumm CERSANDRA BJ Comment:Testing performed by : [facility], [address] [place] [phone] Basophil abs 0.03 0.00 - 0.10 K/cumm CERSANRDA BJ Comment:Testing performed by : [facility], [address] [place] [phone] Neutrophil pct 77.0 % CERSANDRA RIOS Comment: Interpretive Data Percent cell count reference ranges are not reported, since discordance with absolute values may lead to misinterpretation of CBC data. Current Interpretive Data was last revised on 2017. Testing performed by: [facility], [address] [place] [phone] Lymphocyte pct 10.0 % CERSANDRA [facility] Comment: Interpretive Data Percent cell count reference ranges are not reported, since discordance with absolute values may lead to misinterpretation of CBC data. Current Interpretive Data was last revised on 2017. Testing performed by: [facility], [address] [place] [phone] Monocyte pct 10.6 % CERSANDRA [facility] Comment: Interpretive Data Percent cell count reference ranges are not reported, since discordance with absolute values may lead to misinterpretation of CBC data. Current Interpretive Data was last revised on 2017. Testing performed by: [facility], [address] [place] [phone] Eosinophil pct 1.9 % CERSANDRA [facility] Comment: Interpretive Data Percent cell count reference ranges are not reported, since discordance with absolute values may lead to misinterpretation of CBC data. Current Interpretive Data was last revised on 2017. Testing performed by: [facility], [address] [place] [phone] Basophil pct 0.6 % CERSANDRA [facility] Comment: Interpretive Data Percent cell count reference ranges are not reported, since discordance with absolute values may lead to misinterpretation of CBC data. Current Interpretive Data was last revised on 2017. Testing performed by: [facility], [address] [place] [phone] Blood 09/17/2024 9:43 AM CDT 09/17/2024 9:57 AM CDT Srini Smith MD LAB BLOOD ORDERABLES Final R esult KATHARINE GABRIEL [facility] Department [place] [address] * (ABNORMAL) CBC with auto differential (09/17/2024 9:43 AM CDT) Pathologist [facility] WBC 4.78 3.80 - 9.90 K/cumm Comment:Testing performed by : [facility], [address] [place], [place] [phone] Hgb 13.1 13.0 - 17.5 g/dL CERNER BJ Comment:Testing performed by : [facility], [address] [place], [place] [phone] Hct 38.7(L) 38.9 - 50.3 % CERNER BJ Comment:Testing performed by : [facility], [address] [place], [place] [phone] Plt 252 150 - 400 K/cumm CERNER BJ Comment:Testing performed by : [facility], [address] [place], [place] [phone] MPV 7.7 6.8 - 10.4 fL CERNER BJ Comment:Testing performed by : [facility], [address] [place], [place] [phone] RBC 4.02(L) 4.30 - 5.80 M/cumm CERNER BJ Comment:Testing performed by : [facility], [address] [place], [place] [phone] MCV 96.1 81.3 - 96.4 fL CERNER BJ Comment:Testing performed by : [facility], [address] [place], [place] [phone] MCH 32.5 27.1 - 33.3 pg CERNER BJ Comment:Testing performed by : [facility], [address] [place] [address] MCHC 33.8 32.3 - 35.7 g/dL CERNER BJ Comment:Testing performed by : [facility], [address] [place] [address] RDW CV 14.8 11.1 - 14.9 % CERNER BJ Comment:Testing performed by : [facility], [address] [place] [address] NRBC abs 0.00 0.00 - 0.01 K/cumm CERNER BJ Comment:Testing performed by : [facility], [address] [place] [phone] Blood 09/17/2024 9:43 AM CDT 09/17/2024 9:57 AM CDT us Srini Smith MD LAB BLOOD ORDERABLES Final R esult Performing Organization Address [facility]/ZIP Co de Phone Number [facility] Department [place] [address] * Lactate dehydrogenase (LD) (09/17/2024 9:43 AM CDT) Pathologist [facility] Lactate dehydrogenase (LDH) 193 100 - 250 Units/L Blood 09/17/2024 9:43 AM CDT 09/17/2024 9:59 AM CDT Srini Smith MD LAB BLOOD ORDERABLES Final R esult Performing Organization Address [facility] Co de Phone Number [facility] Department [place] [address] * Beta 2 microglobulin, serum (09/17/2024 9:43 AM CDT) [facility] Beta 2 Microglobulin, Serum 2.10 1.00 - 2.50 mg/L Comment: Interpretive Data The Michael Beta-2 microglobulin assay procedure was used. Results from different manufacturers or methods may not be comparable. Serial testing should be performed using the same method. Blood 09/17/2024 9:43 AM CDT 09/17/2024 10:29 AM CDT Srini Smith MD LAB BLOOD ORDERABLES Final R esult Performing Organization Address [facility]/ZIP Co de Phone Number [facility] Department [place] [address] * (ABNORMAL) Comprehensive metabolic panel (09/17/2024 9:43 AM CDT) Sodium 141 135 - 145 mmol/L Potassium, pl 4.0 3.3 - 4.9 mmol/L [facility] Chloride 99 97 - 110 mmol/L [facility] CO2 33(H) 22 - 32 mmol/L [facility] Anion gap 9 2 - 15 mmol/L [facility] BUN 9 6 - 25 mg/dL [facility] Creatinine 0.76(L) 0.80 - 1.30 mg/dL [facility] Glucose 192 70 - 199 mg/dL [facility] Comment: Interpretive Data Fasting glucose >/= 126 mg/dl is diagnostic for diabetes. Fasting is defined as no caloric intake for at least 8 hours. Fasting glucose between 100 mg/dl to 125 mg/dl is diagnostic of prediabetes. In a patient with classic symptoms of hyperglycemia or hyperglycemic crisis, a random glucose >/= 200 mg/dl is diagnostic for diabetes. In the absence of unequivocal hyperglycemia, results should be confirmed by repeat testing. The classification and Diagnosis of Diabetes Diabetes Care 2021; 46: S19-S40. Current interpretive data was last revised 2022. Calcium 9.3 8.5 - 10.3 mg/dL [facility] Bilirubin, total 0.7 0.1 - 1.2 mg/dL [facility] Protein, pl 6.5 6.5 - 8.5 g/dL [facility] Albumin 4.3 3.5 - 5.0 g/dL [facility] Alk phos 91 40 - 130 Units/L [facility] ALT 22 7 - 55 Units/L [facility] AST 20 10 - 50 Units/L [facility] Blood 09/17/2024 9:43 AM CDT 09/17/2024 9:59 AM CDT us Srini Smith MD LAB BLOOD ORDERABLES Final R esult [facility] Department [place] [address] * Colonoscopy (04/23/2023 2:53 PM COIL REWIND MACHINE OPERATOR) Anatomical Region Laterality Modality Other Narrative Procedure Note Radha Shaw MD - 04/23/2023 2:53 PM [facility] Patient Name: Konrad Nieto Procedure Date: 04/23/2023 2:53 PM Date of : 1945 Admit Type: Outpatient Age: 77 Gender: Male Attending MD: Radha Shaw M.D. Room: [facility] END[facility]COPY RO[facility] 9 Note Status: Finalized Procedure: [...] scope was passed under direct vision.The CF [id number] endoscope was introduced through the anus [...] On: 04/23/2023 2:53 PM Recognized by the [employer] for promoting quality in endoscopy us Radha Shaw MD ENDOSCOPY PROCEDURES Final Res ult * (ABNORMAL) Hemoglobin A1c (04/04/2022 1:00 AM COIL REWIND MACHINE OPERATOR) Hgb A1C 7.9(H) 4.0 - 5.6 % [facility] Estimated Average Glucose 180 mg/dL KATHARINE [facility] Comment: The ADA recommends reporting an estimated Average Glucose (eAG) with all Hemoglobin A1c results using the equation derived from a study of 507 normal and diabetic adults. Minority populations were underrepresented and children were not included. (Diabetes Care 2020; 43(S1): S66-S76). The eAG is not equivalent to a fasting glucose. Blood 04/04/2022 1:00 AM COIL REWIND MACHINE OPERATOR 04/04/2022 1:45 AM COIL REWIND MACHINE OPERATOR Srini Smith MD LAB BLOOD ORDERABLES Final R esult [facility] Department [place] [address] * Lipid panel (04/04/2022 1:00 AM COIL REWIND MACHINE OPERATOR) Cholesterol 94 30 - 199 mg/dL [facility] Comment: Interpretive Data Ages < or [...] on 2017. Triglycerides 51 <=149 mg/dL [facility] Comment: Interpretive Data Ages < or [...] on 2017. HDL 53 >=40 mg/dL [facility] Comment: Interpretive Data Ages < or [...] 2017. LDL, calculated 31 <=129 mg/dL [facility] Comment: Interpretive Data Ages < or [...] on 2017. Non-HDL Cholesterol 41 mg/dL [facility] Comment: Interpretive Data Ages < or [...] revised on 2017. Chol/HDL ratio [address] [facility] Blood 04/04/2022 1:00 AM COIL REWIND MACHINE OPERATOR 04/04/2022 1:42 AM COIL REWIND MACHINE OPERATOR us Srini Smith MD LAB BLOOD ORDERABLES Final R esult [facility] Department [place] [address] * Hepatitis C antibody (01/22/2019 2:22 PM COIL REWIND MACHINE OPERATOR) Hep C Ab Nonreactive Nonreactive [facility] Comment: Interpretive Data Positive results should be confirmed by a molecular method. If positive, a second separately collected sample should be submitted for Hepatitis C Virus (HCV) RNA Detection and Quantitation by Real-Time Reverse Senior Advisory-PCR (RT-PCR). Current interpretive data was last revised on 2016. Blood specimen (specimen) 01/22/2019 2:22 PM COIL REWIND MACHINE OPERATOR 01/22/2019 2:35 PM COIL REWIND MACHINE OPERATOR us Annie donald NP LAB MICROBIOLOGY - GENERAL ORDERABLES Edited Result - Final Performing Organization Address [facility] Co de Phone Number [facility] Department [place] [address] from Last 3 Months or Most Recently Relevant to Health [place] [address] [facility] MEDICARE ADVANTAGE [facility] MEDICARE ADVANTAGE Advance Directives For more information, please contact: [phone] * Full Code (Latest Code Status on File) Date Activated Date Inactivated Comments 04/23/2023 3:07 PM 04/23/2023 8:55 PM * Full Code Date Activated Date Inactivated Comments 04/03/2022 11:40 PM 04/06/2022 9:40 PM * Full Code Date Activated Date Inactivated Comments 04/26/2018 6:57 AM 04/26/2018 1:31 PM Care Teams Tile Grader Relationship Specialty Start Date End Date Courtney Pitt NP [facility] [address] [place] [address] [place] [phone] PCP - General Internal Medicine 09/17/24 Srini Smith MD [address] [facility], [facility] [address] [place] [address] Medical Oncologist/Dispatcher [employer] Medical Oncology 04/07/22
--- OUTSIDE RECORDS SUMMARY | 2024-09-17 20:15 | XMS_ITS | Encounter Summary ---
Author Organization [facility] Address [address] [place] [address] Phone Care Team Providers Care Waterworks Chief Engineer Name Role Phone Kun Oconnor MD Primary Care Provider + [phone] Chace Newman DO Primary Care Provider [phone] Srini Smith MD Unavailable [phone] Courtney Pitt NP Primary Care Provider [phone] Encounter Details Date Type Department Care Team (Latest Contact Info) Description 07/19/2019 Orders Only [facility] Scanning, Provider Social History Tobacco Use Types Packs/Day Years Used Date Smoking Tobacco: Never Smokeless Tobacco: Never Sex and Gender Information Value Date Recorded Sex Assigned at Not on file Legal Sex Male 7:49 AM CLAM GROWER Gender Identity Not on file Sexual Orientation [...] on filedocumented in this encounter Care Teams Waterworks Chief Engineer Relationship Specialty Start Date End Date Kun Oconnor MD [address] [place] [address] PCP - General 12/29/16 04/03/22 Chace Newman DO [address] [place] [address] PCP - General Family Medicine 04/04/22 09/16/24 Courtney Pitt NP [address] [facility] [address] [place] [address] PCP - General Internal Medicine 09/17/24 Srini Smith MD [address] [facility] MEDICAL [facility], [facility] 7A, 7B, [address] [place] [address] Medical Oncologist/Airport Baggage Screener Medical Oncology 04/07/22 documented as of this encounter
--- OUTSIDE RECORDS SUMMARY | 2024-09-17 20:15 | XMS_ITS ---
Author Organization [facility] Address [address] [facility] [place] [address] Care Team Providers Care Glass Block Installer Name Role Phone Srini Smith MD Unavailable [phone] Courtney Pitt NP Primary Care Provider [phone] Active Problems Problem Noted Date Diagnosed Date Pneumonia 04/05/2022 Assessment & Plan (04/06/2022 12:28 PM LIGHTING DESIGNER): Pt presented with productive cough and malaise. [...] 04/05/2022 Assessment & Plan (04/05/2022 7:59 AM LIGHTING DESIGNER): - Home losartan and atenolol Elevated HDL 04/05/2022 Assessment & Plan (04/05/2022 8:01 AM LIGHTING DESIGNER): - Home atorvastatin Diabetes mellitus type 2 without retinopathy Assessment & Plan (10/01/2019 9:02 AM CDT): -- No background diabetic retinopathy (COKE DRAWER HAND) -- No neovascularization of the disc (NVD), [...] (CMS/HCC) Assessment & Plan (04/06/2022 12:29 PM LIGHTING DESIGNER): - s/p Rituxan x4 () - Now with PD with likely left kidney involvement - BR x6C held in setting of infection, restart once infection resolved - Follow up with Dr Smith outpt Type 2 diabetes mellitus without complication Encounter for colonoscopy du e to history of adenomatous colonic polyps 04/16/2018 Overview (04/16/2018): Added automatically from request for surgery [id number] Ganglion of hand 01/16/2017 Current Treatment and [...] Smith MD 6 of 6 cycles started [id number] - [facility] - Lymphoma - ILyAD - RiTUXimab + [...] 04/06/2022 Assessment & Plan (04/06/2022 12:29 PM LIGHTING DESIGNER): SpO2 down to 88%. On 2L O2. Likely 2/2 pna - Manage pna as elsewhere - Clinically improving with antibiotics. Wean O2 as tolerated Hyponatremia 04/05/2022 04/06/2022 Assessment & Plan (04/05/2022 1:09 PM LIGHTING DESIGNER): Na 1344 -> 139. 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/03/2022 023 Assessment & Plan (04/05/2022 7:53 AM LIGHTING DESIGNER): - s/p Rituxan x4 ([id number]) - Now with PD with likely left kidney involvement - BR x6C held in setting of infection, restart once infection resolved - Follows with Dr Smith
--- OUTSIDE RECORDS SUMMARY | 2024-09-17 20:15 | XMS_ITS | Encounter Summary ---
Author Organization [facility] Address [address] [facility] [place] [address] Care Team Providers Care Vacuum Drier Tender Name Role Phone Unavailable Primary Care Provider Unavailabl e Encounter Details Date Type Department Care Team (Late st Contact Info) Description 01/01/2019 Lab Requisition [facility] Care Pathology Lab [address] [place] [address] Mainor Zavaleta MD [address] [place] [id number] Enlarged lymph nodes, unspecified Social History [...] AM CDT) Case Report Flow Cytometry Case: [id number] Authorizing Provider: Mainro Zavaleta MD Collected: 01/01/2019 08:24 AM Ordering Location: [facility] Care Pathology Lab Received: 01/01/2019 12:16 PM Pathologist: Omkar Houston MD Specimen: Lymph Node, ANNA PORTAL AORTIC LYMPH NODE 9 11:50 AM CDT [facility] Final Diagnosis Lymph node, periportal aortic, flow cytometric immunophenotypic analysis: - 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 - See interpretation. 9 11:50 AM [facility] PATHOLOGY LAB at 1150 CDT Flow Cytometry [...] flow cytometry specimen is reviewed for quality analyst/technical writer purposes. Overall, the periportal aortic lymph node shows an evidence of involvement by CD5-negative, [id number] mature B-cell lymphoma. Correlation with clinical findings and concurrent tissue biopsy ([id number]) is required. 9 11:50 AM [facility] PATHOLOG[facility] LAB Flow Cytometry Results Differential Result Comment Flow Cell Count /uL 114,000 Total Viability % 79.0 Lymphocytes % 98 Dim CD45 Region % 1 Monocytes % 0 Granulocytes % 1 9 11:50 AM [facility] PATH[facility] Reason for test Enlarged lymph nodes , unspecified 9 11:50 AM [facility] PATH[facility] Client Specimen ID # [id number] 9 11:50 AM [facility] PATH[facility] LAB Number of markers 16 were performed. A-2 Flow CD3 A-4 Flow CD10 A-6 Flow CD20 A-7 Flow CD23 A-12 Flow CD2 A-13 Flow CD4 A-16 Flow CD1a A-3 Flow CD5 A-5 Flow CD19 A-8 Flow CD34 A-9 Flow CD45 A-14 Flow CD7 A-15 Flow CD8 A-17 Flow CD30 A-10 [place]+CD19+ A-11 Lambda+CD19+ 9 11:50 AM [facility] PATHOLOG[facility] LAB Disclaimer Test performed at [facility], [address] [place] [address], [address]. *The established laboratory minimum viability is 70%. [...] complexity clinical testing. 9 11:50 AM CDT [facility] PATHOLOGY LAB Embedded Images 9 11:50 AM CDT [facility] PATHOLOGY LAB Pathology/Cytolo gy ENTIRE LYMPH NODE / Unknown 01/01/2019 8:24 AM CDT 01/01/2019 12:16 PM CDT Mainor Zavaleta MD LAB - PATHOLOGY/CYTOLOGY ORDER ROMAIN Final Result [facility] PATHOLOGY LAB [address] [phone] documented in this encounter Visit Diagnoses Diagnosis Enlarged lymph nodes, unspecified documented in this encounter
--- OUTSIDE RECORDS SUMMARY | 2024-09-17 20:15 | XMS_ITS | Encounter Summary ---
Author Organization [facility] Address [address] [place] [address] Care Team Providers Care Plant Operations Worker Name Role Phone Srini Smith MD Unavailable [phone] Courtney Pitt NP Primary Care Provider [phone] Encounter Details Date Type Department Care Team (Late st Contact Info) Description 09/17/2024 10:[address] 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) documented in this encounter Results * eGFR (09/17/2024 9:43 AM CDT) [...] LAB BLOOD ORDERABLES Final R esult [facility]ATH[facility] Department [place] [address] * (ABNORMAL) Differential, auto (09/17/2024 9:43 AM CDT) Neutrophil abs 3.68 1.50 - 6.50 K/cumm Comment:Testing performed by : [facility], [address] [place], [place] [id number] Lymphocyte abs 0.48(L) 0.80 - 3.30 K/cumm [facility] Comment:Testing performed by : [facility], [address] [place] [address] Monocyte abs 0.51 0.20 - 0.80 K/cumm [facility] Comment:Testing performed by : [facility], [address] [place], [place] [id number] Eosinophil abs 0.09 0.00 - 0.50 K/cumm [facility] Comment:Testing performed by : [facility], [address] [place], [place] [phone] Basophil abs 0.03 0.00 - 0.10 K/cumm [facility] Comment:Testing performed by : [facility], [address] [place] [phone] Neutrophil pct 77.0 % [facility]ER [facility] Comment: Interpretive Data Percent cell count reference ranges are not reported, since discordance with absolute values may lead to misinterpretation of CBC data. Current Interpretive Data was last revised on 2017. Testing performed by: [facility], [address] [place] [phone] Lymphocyte pct 10.0 % [facility] Comment: Interpretive Data Percent cell count reference ranges are not reported, since discordance with absolute values may lead to misinterpretation of CBC data. Current Interpretive Data was last revised on 2017. Testing performed by: [facility], [address] [place] [phone] Monocyte pct 10.6 % [facility] Comment: Interpretive Data Percent cell count reference ranges are not reported, since discordance with absolute values may lead to misinterpretation of CBC data. Current Interpretive Data was last revised on 2017. Testing performed by: [facility], [address] [place] [phone] Eosinophil pct 1.9 % [facility] Comment: Interpretive Data Percent cell count reference ranges are not reported, since discordance with absolute values may lead to misinterpretation of CBC data. Current Interpretive Data was last revised on 2017. Testing performed by: [facility], [address] [place] [phone] Basophil pct 0.6 % [facility] Comment: Interpretive Data Percent cell count reference ranges are not reported, since discordance with absolute values may lead to misinterpretation of CBC data. Current Interpretive Data was last revised on 2017. Testing performed by: [facility], [address] [place] [phone] Blood 09/17/2024 9:43 AM CDT 09/17/2024 9:57 AM CDT us Srini Smith MD LAB BLOOD ORDERABLES Final R esult Performing Organization Address City/[facility]/ZIP Co de Phone Number KATHARINE [facility] Department of [employer] [place] [address] * Beta 2 microglobulin, serum (09/17/2024 9:43 AM CDT) Beta 2 Microglobulin, Serum 2.10 1.00 - 2.50 mg/L Comment: Interpretive Data The Michael Beta-2 microglobulin assay procedure was used. Results from different manufacturers or methods may not be comparable. Serial testing should be performed using the same method. Blood 09/17/2024 9:43 AM CDT 09/17/2024 10:29 AM CDT us Srini Smith MD LAB BLOOD ORDERABLES Final R esult [facility] [place] [address] * (ABNORMAL) CBC with auto differential (09/17/2024 9:43 AM CDT) WBC 4.78 3.80 - 9.90 K/cumm Comment:Testing performed by : [facility], [address] [place] [address] Hgb 13.1 13.0 - 17.5 g/dL [facility] Comment:Testing performed by : [facility], [address] [place] [address] Hct 38.7(L) 38.9 - 50.3 % [facility] Comment:Testing performed by : [facility], [address] [place] [address] Plt 252 150 - 400 K/cumm [facility] Comment:Testing performed by : [facility], [address] [place] [address] MPV 7.7 6.8 - 10.4 fL [facility] Comment:Testing performed by : [facility], [address] [place] [address] RBC 4.02(L) 4.30 - 5.80 M/cumm [facility] Comment:Testing performed by : [facility], [address] [place] [address] MCV 96.1 81.3 - 96.4 fL [facility] Comment:Testing performed by : [facility], [address] [place] [address] MCH 32.5 27.1 - 33.3 pg [facility] Comment:Testing performed by : [facility], [address] [place] [address] MCHC 33.8 32.3 - 35.7 g/dL [facility] Comment:Testing performed by : [facility], [address] [place] [address] RDW CV 14.8 11.1 - 14.9 % [facility] Comment:Testing performed by : [facility], [address] [place] [phone] NRBC abs 0.00 0.00 - 0.01 K/cumm [facility] Comment:Testing performed by : [facility], [address] [place] [address] Blood 09/17/2024 9:43 AM CDT 09/17/2024 9:57 AM CDT Srini Smith MD LAB BLOOD ORDERABLES Final R esult [facility] Department [place] [address] * (ABNORMAL) Comprehensive metabolic panel (09/17/2024 9:43 AM CDT) Sodium 141 135 - 145 mmol/L Potassium, pl 4.0 3.3 - 4.9 mmol/L [facility] Chloride 99 97 - 110 mmol/L [facility] CO2 33(H) 22 - 32 mmol/L [facility] Anion gap 9 2 - 15 mmol/L [facility] BUN 9 6 - 25 mg/dL [facility] Creatinine 0.76(L) 0.80 - 1.30 mg/dL [facility] Glucose 192 70 - 199 mg/dL [facility] Comment: Interpretive Data Fasting glucose >/= [...] classification and Diagnosis of Diabetes Diabetes Care 202; 46: S19-S40. Current interpretive data was last revised 2022. Calcium 9.3 8.5 - 10.3 mg/dL [facility] Bilirubin, total 0.7 0.1 - 1.2 mg/dL [facility] Protein, pl 6.5 6.5 - 8.5 g/dL [facility] Albumin 4.3 3.5 - 5.0 g/dL [facility] Alk phos 91 40 - 130 Units/L [facility] ALT 22 7 - 55 Units/L [facility] AST 20 10 - 50 Units/L [facility] Blood 09/17/2024 9:43 AM CDT 09/17/2024 9:59 AM CDT us Srini Smith MD LAB BLOOD ORDERABLES Final R esult Performing Organization Address City/[facility]/ZIP Co de Phone Number [facility] Department [place] [address] * Lactate dehydrogenase (LD) (09/17/2024 9:43 AM CDT) Lactate dehydrogenase (LDH) 193 100 - 250 Units/L Blood 09/17/2024 9:43 AM CDT 09/17/2024 9:59 AM CDT us Srini Smith MD LAB BLOOD ORDERABLES Final R esult Performing Organization Address City/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 MEDICAL ONCOLOGY, [facility] [address], [address] [place] [address] Medical Oncologist/Software Deployment Engineer Medical Oncology 04/07/22 documented as of this encounter
--- OUTSIDE RECORDS SUMMARY | 2024-09-17 20:15 | XMS_ITS | Encounter Summary ---
Author Organization [facility] Address [address] [place] [address] Phone Care Team Providers Care Deputy Fire Marshal Name Role Phone Kun Oconnor MD Primary Care Provider [phone] Chace Newman DO Primary Care Provider [phone] Srini Smith MD Unavailable [phone] Courtney Pitt NP Primary Care Provider [phone] Encounter Details Date Type Department Care Team (Latest Contact Info) Description 07/18/2019 Orders Only [facility] Scanning, Provider Social History Tobacco Use Types Packs/Day Years Used Date Smoking Tobacco: Never Smokeless Tobacco: Never Sex and Gender Information Value Date Recorded Sex Assigned at Not on file Legal 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 Gender Identity Not on file Sexual Orientation [...] on filedocumented in this encounter Care Teams Deputy Fire Marshal Relationship Specialty Start Date End Date Kun Oconnor MD [address] [place] [address] PCP - General 12/29/16 04/03/22 Chace Newman DO [address] [place], [place] [id number] PCP - General Family Medicine 04/04/22 09/16/24 Courtney Pitt NP [address] [facility] [address] [place], [place] [id number] PCP - General Internal Medicine 09/17/24 Srini Smith MD [address] [facility] MEDICAL ONCOLOGY, [facility] [address]A, [address], [address] [place] [address] Medical Oncologist/Materials Engineering Technician Medical Oncology 04/07/22 documented as of this encounter
--- OUTSIDE RECORDS SUMMARY | 2024-09-17 20:15 | XMS_ITS | Referral Summary ---
Author Organization [facility] 2 Address [address] [place] [address] Care Team Providers Care Refrigeration Houseman Name Role Phone Srini Smith MD Unavailable [phone] Courtney Pitt NP Primary Care Provider [phone] Encounters Date Type Department Care Team Description 09/17/2024 Documentation [facility] [address] [place] [phone] Jessica Luong RN 09/17/2024 Documentation [facility] [address] [place] [phone] Petar Sweeney MSW 09/17/2024 10:15 AM CDT Lab [facility] - Lab Collection [facility] [address] [address] 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) 09/17/2024 10:30 AM CDT Office Visit [facility] [address] [place] [phone] Annie Knight NP 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) 09/17/2024 9:30 AM CDT Lab [facility] Lab [facility] [address] [place] [address] 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) 09/15/2024 ACO Medication Access [facility] Accountable Care Organization [address] [place] [id number] Carie Jonas, [facility] 09/03/2024 Documentation [facility] [address] [facility] Floor [address] [place] [phone] June, RMA Appointment 09/02/2024 Telephone [facility] [address] [place] [phone] Jessica Luong, RN 09/01/2024 Telephone [facility] [address] [place] [phone] Jessica Luong RN 08/15/2024 Telephone [facility] [address] [place] [phone] Jessica Luong, RN from Last 3 Months [...] 04/05/2022 Assessment & Plan (04/06/2022 12:28 PM LIMEROCK TOWER LOADER): Pt presented with productive cough and malaise. 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 On 2L O2. Likely 2/2 pna - Manage pna as elsewhere - Clinically improving with antibiotics. Wean O2 as tolerated Hyponatremia 04/05/2022 04/06/2022 Assessment & Plan (04/05/2022 1:09 PM LIMEROCK TOWER LOADER): Na 1344 -> 139. 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/03/2022 023 Assessment & Plan (04/05/2022 7:53 AM LIMEROCK TOWER LOADER): - s/p Rituxan x4 ([id number]) - Now with PD with likely left [...] on file Legal Sex Male 7:49 AM LIMEROCK TOWER LOADER Gender Identity Not on file Sexual Orientation [...] lymphoma (CMS/HCC) (HCC) COLONOSCOPY 04/23/2023 2:53 PM LIMEROCK TOWER LOADER HEMOGLOBIN A1C STAT 04/04/2022 1:00 AM LIMEROCK TOWER LOADER LIPID PANEL STAT 04/04/2022 1:00 AM LIMEROCK TOWER LOADER HEPATITIS C ANTIBODY Routine 01/22/2019 2:22 PM LIMEROCK TOWER LOADER Ace marginal zone B-cell lymphoma (HCC) from [...] LAB BLOOD ORDERABLES Final R esult [facility] [place] [address] * (ABNORMAL) Differential, auto (09/17/2024 9:43 AM CDT) Neutrophil abs 3.68 1.50 - 6.50 K/cumm Comment:Testing performed by : [facility], [address] [place] [address] Lymphocyte abs 0.48(L) 0.80 - 3.30 K/cumm CERNER GABRIEL Comment:Testing performed by : [facility], [address] [place], [place] [phone] Monocyte abs 0.51 0.20 - 0.80 K/cumm CERSANDRA RIOS Comment:Testing performed by : [facility], [address] [place], [place] [phone] Eosinophil abs 0.09 0.00 - 0.50 K/cumm KATHARINE RIOS Comment:Testing performed by : [facility], [address] [place] [phone] Basophil abs 0.03 0.00 - 0.10 K/cumm [facility] Comment:Testing performed by : [facility], [address] [place] [phone] Neutrophil pct 77.0 % CERNER BJ Comment: Interpretive Data Percent cell count reference ranges are not reported, since discordance with absolute values may lead to misinterpretation of CBC data. Current Interpretive Data was last revised on 2017. Testing performed by: [facility], [address] [place] [phone] Lymphocyte pct 10.0 % CERNER BJ Comment: Interpretive Data Percent cell count reference ranges are not reported, since discordance with absolute values may lead to misinterpretation of CBC data. Current Interpretive Data was last revised on 2017. Testing performed by: [facility], [address] [place] [phone] Monocyte pct 10.6 % KATHARINE TEMPLE Comment: Interpretive Data Percent cell count reference ranges are not reported, since discordance with absolute values may lead to misinterpretation of CBC data. Current Interpretive Data was last revised on 2017. Testing performed by: [facility], [address] [place] [phone] Eosinophil pct 1.9 % KATHARINE TEMPLE Comment: Interpretive Data Percent cell count reference ranges are not reported, since discordance with absolute values may lead to misinterpretation of CBC data. Current Interpretive Data was last revised on 2017. Testing performed by: [facility], [address] [place] [phone] Basophil pct 0.6 % KATHARINE TEMPLE Comment: Interpretive Data Percent cell count reference ranges are not reported, since discordance with absolute values may lead to misinterpretation of CBC data. Current Interpretive Data was last revised on 2017. Testing performed by: [facility], [address] [place] [phone] Blood 09/17/2024 9:43 AM CDT 09/17/2024 9:57 AM CDT us Srini Smith MD LAB BLOOD ORDERABLES Final R esult KATHARINE RIOS [facility] Department [place] [address] * (ABNORMAL) CBC with auto differential (09/17/2024 9:43 AM CDT) WBC 4.78 3.80 - 9.90 K/cumm Comment:Testing performed by : [facility], [address] [place] [phone] Hgb 13.1 13.0 - 17.5 g/dL KATHARINE TEMPLE Comment:Testing performed by : [facility], [address] [place] [address] Hct 38.7(L) 38.9 - 50.3 % [facility] Comment:Testing performed by : [facility], [address] [place], [place] [phone] Plt 252 150 - 400 K/cumm CERSANDRA BJ Comment:Testing performed by : [facility], [address] [place] [address] MPV 7.7 6.8 - 10.4 fL [facility] Comment:Testing performed by : [facility], [address] [place], [place] [phone] RBC 4.02(L) 4.30 - 5.80 M/cumm CERSANDRA BJ Comment:Testing performed by : [facility], [address] [place], [place] [phone] MCV 96.1 81.3 - 96.4 fL [facility] Comment:Testing performed by : [facility], [address] [place], [place] [phone] MCH 32.5 27.1 - 33.3 pg [facility] Comment:Testing performed by : [facility], [address] [place] [address] MCHC 33.8 32.3 - 35.7 g/dL [facility] Comment:Testing performed by : [facility], [address] [place] [address] RDW CV 14.8 11.1 - 14.9 % [facility] Comment:Testing performed by : [facility], [address] [place] [address] NRBC abs 0.00 0.00 - 0.01 K/cumm [facility] Comment:Testing performed by : [facility], [address] [place] [address] Blood 09/17/2024 9:43 AM CDT 09/17/2024 9:57 AM CDT Srini Smith MD LAB BLOOD ORDERABLES Final R esult [facility] Department [place] [address] * Lactate dehydrogenase (LD) (09/17/2024 9:43 AM CDT) [facility] Lactate dehydrogenase (LDH) 193 100 - 250 Units/L Blood 09/17/2024 9:43 AM CDT 09/17/2024 9:59 AM CDT Srini Smith MD LAB BLOOD ORDERABLES Final R esult Performing Organization Address [facility] Co de Phone Number [facility] [place] [address] * Beta 2 microglobulin, serum (09/17/2024 9:43 AM CDT) [facility] Beta 2 Microglobulin, Serum 2.10 1.00 - 2.50 mg/L Comment: Interpretive Data The Michael Beta-2 microglobulin assay procedure was used. Results from different manufacturers or methods may not be comparable. Serial testing should be performed using the same method. Blood 09/17/2024 9:43 AM CDT 09/17/2024 10:29 AM CDT us Srini Smith MD LAB BLOOD ORDERABLES Final R esult Performing Organization Address [facility] Co de Phone Number [facility] Department [place] [address] * (ABNORMAL) Comprehensive metabolic panel (09/17/2024 9:43 AM CDT) [facility] Sodium 141 135 - 145 mmol/L Potassium, pl 4.0 3.3 - 4.9 mmol/L [facility] Chloride 99 97 - 110 mmol/L [facility] CO2 33(H) 22 - 32 mmol/L [facility] Anion gap 9 2 - 15 mmol/L [facility] BUN 9 6 - 25 mg/dL [facility] Creatinine 0.76(L) 0.80 - 1.30 mg/dL [facility] Glucose 192 70 - 199 mg/dL [facility] Comment: Interpretive Data Fasting glucose >/= [...] 2022. Calcium 9.3 8.5 - 10.3 mg/dL [facility] Bilirubin, total 0.7 0.1 - 1.2 mg/dL [facility] Protein, pl 6.5 6.5 - 8.5 g/dL [facility] Albumin 4.3 3.5 - 5.0 g/dL [facility] Alk phos 91 40 - 130 Units/L [facility] ALT 22 7 - 55 Units/L [facility] AST 20 10 - 50 Units/L [facility] Blood 09/17/2024 9:43 AM CDT 09/17/2024 9:59 AM CDT us Srini Smith MD LAB BLOOD ORDERABLES Final R esult [facility] Department [place] [address] * Colonoscopy (04/23/2023 2:53 PM LIMEROCK TOWER LOADER) Anatomical Region Laterality Modality Other Narrative Procedure Note Early, Radha Carson MD - 04/23/2023 2:53 PM [facility] Patient Name: Konrad Nieto Procedure Date: 04/23/2023 2:53 PM Date of : 1945 Admit Type: Outpatient Age: 77 Gender: Male Attending MD: Radha Shaw M.D. Room: [facility] 9 Note Status: Finalized Procedure: [...] The scope was passed under direct vision.The [id number] endoscope was introduced through the anus [...] On: 04/23/2023 2:53 PM Recognized by the [employer] for promoting quality in endoscopy us Radha Shaw MD ENDOSCOPY PROCEDURES Final Res ult * (ABNORMAL) Hemoglobin A1c (04/04/2022 1:00 AM LIMEROCK TOWER LOADER) Hgb A1C 7.9(H) 4.0 - 5.6 % KATHARINE TEMPLE Estimated Average Glucose 180 mg/dL KATHARINE TEMPLE Comment: The ADA recommends reporting an estimated Average Glucose (eAG) with all Hemoglobin A1c results using the equation derived from a study of 507 normal and diabetic adults. Minority populations were underrepresented and children were not included. (Diabetes Care 2020; 43(S1): S66-S76). The eAG is not equivalent to a fasting glucose. Blood 04/04/2022 1:00 AM LIMEROCK TOWER LOADER 04/04/2022 1:45 AM LIMEROCK TOWER LOADER us Srini Smith MD LAB BLOOD ORDERABLES Final [facility] Department [place] [address] * Lipid panel (04/04/2022 1:00 AM LIMEROCK TOWER LOADER) Cholesterol 94 30 - 199 mg/dL KATHARINE [...] on 2017. Triglycerides 51 <=149 mg/dL [facility] Comment: Interpretive Data Ages < or = [...] revised on 2017. HDL 53 >=40 mg/dL KATHARINE RIOS Comment: Interpretive Data Ages [...] on 2017. LDL, calculated 31 <=129 mg/dL [facility] Comment: Interpretive Data Ages < or = [...] revised on 2017. Non-HDL Cholesterol 41 mg/dL [facility] Comment: Interpretive Data Ages < or = [...] last revised on 2017. Chol/HDL ratio 2 [facility] Blood 04/04/2022 1:00 AM LIMEROCK TOWER LOADER 04/04/2022 1:42 AM LIMEROCK TOWER LOADER us Srini Smith MD LAB BLOOD ORDERABLES Final R esult [facility] Department [place] [address] * Hepatitis C antibody (01/22/2019 2:22 PM LIMEROCK TOWER LOADER) Hep C Ab Nonreactive Nonreactive KATHARINE RIOS Comment: Interpretive Data Positive results should be confirmed by a molecular method. If positive, a second separately collected sample should be submitted for Hepatitis C Virus (HCV) RNA Detection and Quantitation by Real-Time Reverse Wool Brusher-PCR (RT-PCR). Current interpretive data was last revised on 2016. Blood specimen (specimen) 01/22/2019 2:22 PM LIMEROCK TOWER LOADER 01/22/2019 2:35 PM LIMEROCK TOWER LOADER Annie donald BUILDING ARCHITECT LAB MICROBIOLOGY - GENERAL ORDERABLES Edited Result - Final [facility] Department [place] [address] from Last 3 Months or Most Recently Relevant to Health Maintenance Insurance [facility] MED[employer] ADVANTAGE [facility] MED[employer] ADV[employer]AGE Advance Directives For more information, please contact: [phone] * Full Code (Latest Code Status on File) Date Activated Date Inactivated Comments 04/23/2023 3:07 PM 04/23/2023 8:55 PM * Full Code Date Activated Date Inactivated Comments 04/03/2022 11:40 PM 04/06/2022 9:40 PM * Full Code Date Activated Date Inactivated Comments 04/26/2018 6:57 AM 04/26/2018 1:31 PM Care Teams Refrigeration Houseman Relationship Specialty Start Date End Date Courtney Pitt NP [address] [place] [address] [address] PCP - General Internal Medicine 09/17/24 Srini Smith MD [address] [facility], [facility] [address] [place] [address] Medical Oncologist/Beater Boss Medical Oncology 04/07/22
--- OUTSIDE RECORDS SUMMARY | 2024-09-17 20:15 | XMS_ITS | Encounter Summary ---
Author Organization [facility] Address [address] [place] [address] Phone Care Team Providers Care Aircraft Instrument Tester Name Role Phone Kun Oconnor MD Primary Care Provider [phone] Chace Newman DO Primary Care Provider [phone] Sriin Smith MD Unavailable [phone] Courtney Pitt NP Primary Care Provider [phone] Encounter Details Date Type Department Care Team (Latest Contact Info) Description 07/21/2019 Orders Only [facility] Scanning, Provider Social History Tobacco Use Types Packs/Day Years Used Date Smoking Tobacco: Never Smokeless Tobacco: Never Sex and Gender Information Value Date Recorded Sex Assigned at Not on file Legal 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 Gender Identity Not on file Sexual Orientation [...] on filedocumented in this encounter Care Teams Aircraft Instrument Tester Relationship Specialty Start Date End Date Kun Oconnor MD [address] [place] [address] PCP - General 12/29/16 04/03/22 Chace Newman DO [address] [place] [address] PCP - General Family Medicine 04/04/22 09/16/24 Courtney Pitt NP [address] [facility] [address] [place] [address] PCP - General Internal Medicine 09/17/24 Srini Smith MD [address] [facility], [facility] [address] [place] [address] Medical Oncologist/Roll Line Operator Medical Oncology 04/07/22 documented as of this encounter
[2024-09-17 20:17] VITALS: BP 171/119; PULSE 87; RESP 16; TEMP 36.7; O2SAT 96
--- NOTE | 2024-09-17 23:45 | ED_ITS ---
HPI - Back Pain/Injury General Chief Complaint: Back Pain/Injury Stated Complaint: lower back/tailbone pain Time Seen by Provider: 09/17/24 23:36 History of Present Illness HPI Narrative: 78-year-old male with history of vascular dementia, Alzheimer's dementia, hypertension, diabetes. Patient presents to the emergency depart for complaints of low sacral lumbar back pain. Ongoing for last few days worsening tonight. States he was having trouble sleeping with the pain. Denies any falls or injuries but his family notes that he has significant Alzheimer's and memory issues and would not remember any injuries but he does not have any overt signs of trauma on his exam or bruising. No neurological deficits and he is ambulatory. Patient lives at home and his family members are currently trying to get placement into her nursing facility given his functional status decline in recent time from the dementia. Patient self is no acute complaints other than back pain denies any other symptoms such as urinary issues, weakness, difficulty ambulating. No other locations of pain, no reported traumatic injuries per patient. Related Data Home Medications ?Medication ?Instructions ?Recorded ?Confirmed ?Last Taken ?Type blood sugar diagnostic #10 ea 03/26/19 09/08/24 Unknown History lancets 33 gauge (OneTouch Delica #100 ea 03/26/19 09/08/24 Unknown History Lancets) Allergies Allergy/AdvReac Type Severity Reaction Status Date / Time No Known Allergies Allergy Verified 09/17/24 20:13 Review of Systems 2 Review of Systems: As reviewed above in HPI [facility] Past Medical History Medical History Vascular dementia Cerebral infarction Dementia GI bleed due to NSAIDs Incisional hernia Acute blood loss anemia Duodenal ulcer Colon polyps Benign prostatic hyperplasia Dyslipidemia Essential hypertension Marginal zone lymphoma Treated with chemotherapy at [facility] in [place] per Dr. Gresham. Chronic anemia Ganglion cyst of joint of finger of left hand Type 2 diabetes mellitus without complications Surgical History Surgical History History of incisional hernia repair laparoscopic repair of multiple incisional hernia with 25x20 cm Symbotex mesh 09/17/19 History of transurethral resection of prostate Wound dehiscence, traumatic injury repair (~01/2019) Repair of abdominal wound fascial dehiscence with evisceration. Status post exploratory laparotomy (~12/2018) With excisional biopsy of periaortic and periportal lymphadenopathy, histology showing marginal zone lymphoma. Family History Family History Father Acute myocardial infarction Sibling Cerebrovascular accident Family history of malignant neoplasm of brain Mother Family history of congestive heart failure Sibling Lung cancer Social History Social History Social History: The patient is and lives in his own home in [place]. He has 3 biological children and 2 step children. 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 He is a lifelong nonsmoker and denies alcohol and drug abuse. He designates his daughter, Brisa Brunner, as his surrogate decision maker and he wishes to be a full code. Smoking packs per day: 0.5 Smoking cigarettes per day: 10.0 Years smoked: 50 Smoking pack-years: 25.00 Smoking status: Current every day smoker Tobacco type: cigarettes Second hand tobacco smoke exposure: Yes Alcohol intake: never Substance use: never Substance use type: does not use Do You Feel Safe in your Home?: Yes Lack of Transportation: No Lack of Food: Never True Current Housing: I Have Housing Concerned About Future Housing: No Difficulty Paying Gas/Electric Bills: No Difficulty Paying for Meds: No Currently Unemployed: No Education: Master's Degree or Higher Difficulty w/ Childcare or Family Care: No Living arrangements: alone Occupation/Education: occupation Additional occupation/education comments: 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 Gender identity (if verbalized by the patient): Male Spiritual care concerns: No Agree to blood products: Yes Exam 2 Narrative: GENERAL: Thin and frail but not any acute distress and very pleasant and cooperative. HEAD: [Normocephalic, atraumatic.] EYES: [PERRLA and EOMI.] ENT: Nares clear, no rhinorrhea or epistaxis. Mucous membranes moist. NECK: Supple. CHEST: [Clear to auscultation. No respiratory distress.] HEART: [Regular rate and rhythm]. No murmur heard. [Normal peripheral pulses.] ABDOMEN: [Soft, nondistended], [nontender], [No rigidity or guarding] EXTREMITIES: Normal range of motion. No edema. No midline step-offs deformities the cervical, thoracic, lumbar spine, no pain is reproducible with palpation of the lumbar spine or lower paraspinal muscles. Full strength and sensation throughout both legs with equal strength, able to hold extensor mechanisms, negative straight leg raise testing bilaterally. Plantar and dorsiflexion 5/5 EHL FHL 5/5, no sensory deficits. SKIN: Warm, dry, no rash. NEURO: [No focal deficits]. Alert and oriented [x3.] PSYCH: [Normal mood and affect.] Course Vital Signs Vital signs: Vital Signs Temperature 36.7 C 09/17/24 20:17 Pulse Rate 87 09/17/24 20:17 Respiratory Rate 16 09/17/24 20:17 Blood Pressure 171/119 H 09/17/24 20:17 Pulse Oximetry 96 09/17/24 20:17 Temperature 36.7 C 09/17/24 20:17 Pulse Rate 87 09/17/24 20:17 Respiratory Rate 16 09/17/24 20:17 Blood Pressure 171/119 H 09/17/24 20:17 Pulse Oximetry 96 09/17/24 20:17 MDM - Back Pain/Injury MDM Narrative Medical decision making narrative: 78-year-old male with history of vascular dementia, Alzheimer's dementia, history of marginal zone lymphoma in remission, hypertension, diabetes. Patient presents to the emergency depart for complaints of low sacral lumbar back pain. Ongoing for last few days worsening tonight. States he was having trouble sleeping with the pain. Denies any falls or injuries but his family notes that he has significant Alzheimer's and memory issues and would not remember any injuries but he does not have any overt signs of trauma on his exam or bruising. No neurological deficits and he is ambulatory. Patient lives at home and his family members are currently trying to get placement into her nursing facility given his functional status decline in recent time from the dementia. Patient self is no acute complaints other than back pain denies any other symptoms such as urinary issues, weakness, difficulty ambulating. No other locations of pain, no reported traumatic injuries per patient. Exam shows normal range of motion. No edema. No midline step-offs deformities the cervical, thoracic, lumbar spine, no pain is reproducible with palpation of the lumbar spine or lower paraspinal muscles. Full strength and sensation throughout both legs with equal strength, able to hold extensor mechanisms, negative straight leg raise testing bilaterally. Plantar and dorsiflexion 5/5. EHL FHL 5/5, no sensory deficits. Mildly hypertensive but normal vital signs otherwise, patient is well-appearing and not any acute distress, given his unremarkable neurological and musculoskeletal examination suspicion for spinal cord pathology is very unlikely, low back pain in the setting of his history of lymphoma will have to evaluate for any kind of bony metastasis or recurrence of his disease. Low suspicion for traumatic injury given no signs of trauma. Basic laboratory studies including CBC, CMP were obtained in the CT of the lumbar spine was ordered. He was given Toradol for analgesia and re-evaluated. Patient's family members are present at bedside and comfortable with the plan at this time. CT scan shows no acute fractures or traumatic malalignment, severe degenerative disease in the spine as well as a instantly found 3 cm density in the left renal kidney consistent with a cyst, patient is aware of that kidney finding and has followed up with his doctor and outpatient specialist without any acute concerns for it. His laboratory studies showed no leukocytosis or significant anemia worse than baseline. Normal platelet count. Electrolytes are largely unremarkable, normal kidney function, normal LFTs. Patient felt significantly improved after Toradol and can be safely discharged home at this time with primary care provider follow-up and prescription for Toradol. Family's questions were answered and patient was comfortable with discharge at this time. He was given return precautions. Medical Records Attestation: I reviewed the patient's medical records. Lab Data Attestation: I reviewed the patient's lab results. 09/18/24 00:34 09/18/24 00:35 Labs: Lab Results 09/18/24 09/18/24 Range/Units 00:34 00:35 WBC 6.1 (4.5-10.0) K/mm3 RBC 3.74 L (4.6-6.20) M/mm3 Hgb 12.3 L (14.0-18.0) g/dL Hct 37.1 L (42.0-52.0) % MCV 99.2 (80-100) fl MCH 32.9 (26-34) pg MCHC 33.2 (32-36) g/dl RDW 14.0 (11.5-14.5) % Plt Count 202 (150-375) k/mm3 MPV 9.5 (7.4-10.4) fl Immature Gran % (Auto) 0.3 (0-0.5) % Neut % (Auto) 74.8 H (45.5-73.1) % Lymph % (Auto) 8.6 L (18.3-44.2) % [place] % (Auto) 13.2 H (2.6-8.5) % Eos % (Auto) 2.4 (0-4.4) % Baso % (Auto) 0.7 (0.2-1.2) % Lymph # (Auto) 0.53 L (0.9-3.2) K/mm3 [place] # (Auto) 0.8 H (0.1-0.6) K/mm3 Eos # (Auto) 0.2 (0-0.3) K/mm3 Baso # (Auto) 0.0 (0.0-0.1) K/mm3 Abs Immat Gran (auto) 0.02 (0.00-0.031) K/mm3 Absolute Neuts (auto) 4.6 (1.3-6.7) K/mm3 Absolute Nucleated RBC 0.000 (0.0-0.012) K/mm3 Nucleated RBC % 0.0 (0.0-0.2) % Sodium 133 L (137-145) mmol/L Potassium 3.4 (3.4-5.0) mmol/L Chloride 95 L (98-107) mmol/L Carbon Dioxide 33 H (22-30) mmol/L Anion Gap 5 (4-12) mmol/L BUN 19 (9-20) mg/dL Creatinine 0.66 L (0.7-1.3) mg/dL Estim Creat Clear Calc Not Reportable Estimated GFR > 60 (59 - ) Glucose 277 H (65-110) mg/dL Calcium 8.9 (8.4-10.2) mg/dL Total Bilirubin 0.6 (0.2-1.3) mg/dL AST 42 (17-59) U/L ALT 30 (6-50) U/L Alkaline Phosphatase 70 (38-126) U/L Total Protein 5.9 L (6.3-8.2) g/dL Albumin 3.9 (3.5-5.1) g/dL Imaging Data Attestation: I personally reviewed and interpreted this imaging study as follows: My impression: Impressions Lumbar Spine CT 09/17/24 23:58 IMPRESSION: No acute fracture or traumatic malalignment in the lumbar spine. Severe degenerative disc disease at L5-S1, with severe bilateral neural foraminal narrowing. 3 cm indeterminate density exophytic left renal lesion, may represent a proteinaceous or hemorrhagic cyst. Recommend timely outpatient MRI or CT without and with contrast for further evaluation. Nonspecific mesenteric edema. Discharge Plan Discharge Clinical Impression: Low back pain, Degenerative disc disease Patient Disposition: Home Condition: Stable Instructions: Antibiotic Form, Back Pain (ED) Additional Instructions: Your CT scan shows no acute traumatic findings, degenerative disc disease is evident but no malalignment or signs of any malignancy recurrence. We will send you home with Toradol for pain control. Follow-up with your regular doctor on outpatient basis. Return with any emergent concerns. Return to the ER if you have increased pain in your back, you develop lower extremity weakness/numbness/paralysis, you have numbness or tingling in your private parts, or you are unable to control your ability to urinate/stool. Patient Language: [place] Prescriptions: New ketorolac 10 mg tablet 10 mg PO Q8H PRN (Reason: pain) 5 Days Qty: 20 0RF Rx Instructions: maximum total duration of 5 days from all oral, intranasal, or parenteral formulations lidocaine 5 % adhesive patch,medicated 1 patch topical DAILY Qty: 15 0RF Rx Instructions: leave on most painful area for up to 12 hrs No Action trazodone 50 mg tablet 50 mg PO QHS Qty: 90 1RF escitalopram oxalate [Lexapro] 10 mg tablet 10 mg PO DAILY Qty: 90 1RF donepezil 5 mg tablet 10 mg .Route .COMPLEX Qty: 90 3RF Rx Instructions: start with 1 tablet daily morning for 1 month and then 2 tablets or 10 mg to continue metformin 500 mg tablet 1,000 mg PO BID Qty: 360 1RF (DME) lancets [OneTouch Delica Lancets] 33 gauge misc See Rx Instructions .ROUTE .MEDSUPPLY Qty: 100 Rx Instructions: As directed (DME) blood sugar diagnostic Strip See Rx Instructions .ROUTE .MEDSUPPLY Qty: 10 Rx Instructions: As directed atenolol [Tenormin] 50 mg tablet 50 mg PO DAILY Qty: 90 1RF pioglitazone 45 mg tablet See Rx Instructions .ROUTE .COMPLEX Qty: 90 1RF Dose Instruction: TAKE 1 TABLET BY MOUTH EVERY DAY Rx Instructions: TAKE 1 TABLET BY MOUTH EVERY DAY glimepiride 2 mg tablet 1 mg PO BID Qty: 180 0RF losartan 50 mg tablet See Rx Instructions .ROUTE .COMPLEX Qty: 90 1RF Dose Instruction: TAKE 1 TABLET BY MOUTH EVERY DAY Rx Instructions: TAKE 1 TABLET BY MOUTH EVERY DAY omeprazole 20 mg capsule,delayed release(DR/EC) 20 mg PO BID Qty: 180 1RF atorvastatin 10 mg tablet 10 mg PO DAILY Qty: 90 1RF thiamine HCl (vitamin B1) 50 mg tablet 50 mg PO DAILY Qty: 90 1RF Follow-up/Referrals: Courtney Pitt, BAKER PAINT-C [Primary Care Provider] - Time of Disposition: 01:20
--- OUTSIDE RECORDS SUMMARY | 2024-09-17 23:48 | XMS_ITS | Encounter Summary ---
Author Organization [facility] Address [address] [place] [address] Phone Care Team Providers Care Appraiser Irrigation Tax Name Role Phone Kun Oconnor MD Primary Care Provider [phone] Chace Newman DO Primary Care Provider [phone] Srini Smith MD Unavailable [phone] Courtney Pitt NP Primary Care Provider [phone] Encounter Details Date Type Department Care Team (Latest Contact Info) Description 07/18/2019 Orders Only [facility] Scanning, Provider Social History Tobacco Use Types Packs/Day Years Used Date Smoking Tobacco: Never Smokeless Tobacco: Never Sex and Gender Information Value Date Recorded Sex Assigned at Not on file 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 Gender Identity Not on file Sexual Orientation [...] on filedocumented in this encounter Care Teams Appraiser Irrigation Tax Relationship Specialty Start Date End Date Kun Oconnor MD [address] [place] [address] PCP - General 12/29/16 04/03/22 Chace Newman DO [address] [place], [place] [id number] PCP - General Family Medicine 04/04/22 09/16/24 Courtney Pitt NP [address] [facility] [address] [place], [place] [id number] PCP - General Internal Medicine 09/17/24 Srini Smith MD [address] [facility], [facility] [address] [place] [address] Medical Oncologist/Rig Hand Medical Oncology 04/07/22 documented as of this encounter
--- OUTSIDE RECORDS SUMMARY | 2024-09-17 23:48 | XMS_ITS ---
Author Organization [facility] Address [address] [facility] [place] [place] [address] Care Team Providers Care Label Designer Name Role Phone Srini Smith MD Unavailable [phone] Courtney Pitt NP Primary Care Provider [phone] Active Problems Problem Noted Date Diagnosed Date Pneumonia 04/05/2022 Assessment & Plan (04/06/2022 12:28 PM MAINFRAME SYSTEMS ADMINISTRATOR): Pt presented with productive cough and malaise. [...] 04/05/2022 Assessment & Plan (04/05/2022 7:59 AM MAINFRAME SYSTEMS ADMINISTRATOR): - Home losartan and atenolol Elevated HDL 04/05/2022 Assessment & Plan (04/05/2022 8:01 AM MAINFRAME SYSTEMS ADMINISTRATOR): - Home atorvastatin Diabetes mellitus type 2 without retinopathy Assessment & Plan (10/01/2019 9:02 AM CDT): -- No background diabetic retinopathy (HEALTHCARE PROF) -- No neovascularization of the disc (NVD), [...] (CMS/HCC) Assessment & Plan (04/06/2022 12:29 PM MAINFRAME SYSTEMS ADMINISTRATOR): - s/p Rituxan x4 () - Now with PD with likely left kidney involvement - BR x6C held in setting of infection, restart once infection resolved - Follow up with Dr Smith outpt Type 2 diabetes mellitus without complication Encounter for colonoscopy du e to history of adenomatous colonic polyps 04/16/2018 Overview (04/16/2018): Added automatically from request for surgery [id number] Ganglion of hand 01/16/2017 Current Treatment and [...] Smith MD 6 of 6 cycles started [id number] - [facility] - Lymphoma - ILyAD - RiTUXimab + [...] 04/06/2022 Assessment & Plan (04/06/2022 12:29 PM MAINFRAME SYSTEMS ADMINISTRATOR): SpO2 down to 88%. On 2L O2. Likely 2/2 pna - Manage pna as elsewhere - Clinically improving with antibiotics. Wean O2 as tolerated Hyponatremia 04/05/2022 04/06/2022 Assessment & Plan (04/05/2022 1:09 PM MAINFRAME SYSTEMS ADMINISTRATOR): Na 1344 -> 139. 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/03/2022 023 Assessment & Plan (04/05/2022 7:53 AM MAINFRAME SYSTEMS ADMINISTRATOR): - s/p Rituxan x4 ([id number]) - Now with PD with likely left kidney involvement - BR x6C held in setting of infection, restart once infection resolved - Follows with Dr Smith
--- OUTSIDE RECORDS SUMMARY | 2024-09-17 23:48 | XMS_ITS | Encounter Summary ---
Author Organization [facility] Address [address] [place] [address] Phone Care Team Providers Care Zinc Furnace Charger Name Role Phone Srini Smith MD Unavailable [phone] Courtney Pitt NP Primary Care Provider [phone] Encounter Details Date Type Department Care Team (Late st Contact Info) Description 09/17/[address] [facility] Floor [address] [place] [id number] Jessica Luong, RN Social History Tobacco Use [...] on file Legal Sex Male 7:49 AM LASTER HAND Gender Identity Not on file Sexual Orientation Not on file documented as of this encounter Nursing Notes * Jessica Luong, RN - 09/17/2024 5:21 PM CDT Contacted social work to assist pt re: social needs at request of BANKING MANAGEMENT CONSULTING MANAGER during ROV today. Petar met with him today. See her notes. documented in this encounter Plan of Treatment Not on file documented as of this encounter Visit Diagnoses Not on filedocumented in this encounter Care Teams Zinc Furnace Charger Relationship Specialty Start Date End Date Courtney Pitt NP [address] [facility] [address] [place] [address] PCP - General Internal Medicine 09/17/24 Srini Smith MD [address] [facility] MEDICAL [facility], [facility] [address] [place] [address] Medical Oncologist/Production Editor Medical Oncology 04/07/22 documented as of this encounter
--- OUTSIDE RECORDS SUMMARY | 2024-09-17 23:48 | XMS_ITS | Encounter Summary ---
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 Gender Identity Not on file Sexual Orientation Not on file documented as of this encounter Plan of Treatment Not on file documented as of this encounter Visit Diagnoses Not on filedocumented in this encounter Care Teams Manager Communication Relationship Specialty Start Date End Date Courtney Pitt NP [facility] [address] [place] [id number] PCP - General Internal Medicine 09/17/24 Srini Smith MD [address] [facility] DIV IM MEDICAL ONCOLOGY, [address] [place] [address] Medical Oncologist/Mold Engraver Medical Oncology 04/07/22 documented as of this encounter
--- OUTSIDE RECORDS SUMMARY | 2024-09-17 23:48 | XMS_ITS | Clinical Summary ---
Author Organization [facility] 2 Address 10 [facility] TAW[place] Rocha [address] Care Team Providers Care Replenishment Analyst Name Role Phone Srini Smith MD Unavailable [phone] Courtney Pitt NP Primary Care Provider [phone] Allergies Active Allergy Reactions Criticality Noted Date [...] 04/05/2022 Assessment & Plan (04/06/2022 12:28 PM DENTAL BILLER): Pt presented with productive cough and malaise. 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 On 2L O2. Likely 2/2 pna - Manage pna as elsewhere - Clinically improving with antibiotics. Wean O2 as tolerated Hyponatremia 04/05/2022 04/06/2022 Assessment & Plan (04/05/2022 1:09 PM DENTAL BILLER): Na 1344 -> 139. 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 - BR x6C held in setting of infection, restart once infection resolved - Follows with Dr Smith Encounters Date Type Department Care Team Description 09/17/2024 10:30 AM CDT Office Visit [facility] [address] [place] [address] 6 [place] [address] Annie Knight NP Ace marginal zone B-cell lymphoma (CMS/HCC) ([facility]) 09/17/2024 10:15 AM CDT Lab [facility] - Lab [facility] Floor 6 [place] [address] Ace marginal zone B-cell lymphoma (CMS/HCC) ([facility]) 09/17/2024 9:30 AM CDT Lab [facility] Lab [address] [place] [address] 6 [place] [address] Ace marginal zone B-cell lymphoma (CMS/HCC) ([facility]) 09/17/2024 Documentation [facility] [address] [facility] Floor 6 [place] [address] Jessica Luong, RN 09/17/2024 Documentation [facility] Social Work 1 [place] [address] Petar Sweeney, CARBIDE DIE MAKER 09/15/2024 ACO Medication Access [facility] Accountable Care Organization [address] [place] [address] Carie Jonas, [facility] 09/03/2024 Documentation [facility] [address] [facility] 6 [place] [address] June, A Appointment 09/02/2024 Telephone [facility] [address] [place] [phone] Jessica Luong, RN 09/01/2024 Telephone [facility] [address] [place] [phone] Jessica Luong, RN 08/15/2024 Telephone [facility] [address] [place] [phone] Jessica Luong, RN from Last 3 Months [...] on file Legal Sex Male 7:49 AM DENTAL BILLER Gender Identity Not on file Sexual Orientation [...] lymphoma (CMS/HCC) (HCC) COLONOSCOPY 04/23/2023 2:53 PM DENTAL BILLER HEMOGLOBIN A1C STAT 04/04/2022 1:00 AM DENTAL BILLER LIPID PANEL STAT 04/04/2022 1:00 AM DENTAL BILLER HEPATITIS C ANTIBODY Routine 01/22/2019 2:22 PM DENTAL BILLER Ace marginal zone B-cell lymphoma (HCC) from [...] ORDERABLES Final R esult KATHARINE RIOS One [facility] Department [place] [address] * (ABNORMAL) Differential, auto (09/17/2024 9:43 AM CDT) Neutrophil abs 3.68 1.50 - 6.50 K/cumm Comment:Testing performed by : [facility], [address] [place] [address] Lymphocyte abs 0.48(L) 0.80 - 3.30 K/cumm KATHARINE RIOS Comment:Testing performed by : [facility], [address] [place], [place] [phone] Monocyte abs 0.51 0.20 - 0.80 K/cumm KATHARINE RIOS Comment:Testing performed by : [facility], [address] [place] [address] Eosinophil abs 0.09 0.00 - 0.50 K/cumm CERSANDRA BJ Comment:Testing performed by : [facility], [address] [place] [phone] Basophil abs 0.03 0.00 - 0.10 K/cumm CERSANDRA BJ Comment:Testing performed by : [facility], [address] [place] [phone] Neutrophil pct 77.0 % CERSANDRA RIOS Comment: Interpretive Data Percent cell count reference ranges are not reported, since discordance with absolute values may lead to misinterpretation of CBC data. Current Interpretive Data was last revised on 2017. Testing performed by: [facility], [address] [place] [phone] Lymphocyte pct 10.0 % [facility]ERSANDRA [facility] Comment: Interpretive Data Percent cell count reference ranges are not reported, since discordance with absolute values may lead to misinterpretation of CBC data. Current Interpretive Data was last revised on 2017. Testing performed by: [facility], [address] [place] [phone] Monocyte pct 10.6 % CERSANDRA [facility] Comment: Interpretive Data Percent cell count reference ranges are not reported, since discordance with absolute values may lead to misinterpretation of CBC data. Current Interpretive Data was last revised on 2017. Testing performed by: [facility], [address] [place] [phone] Eosinophil pct 1.9 % CERSANDRA [facility] Comment: Interpretive Data Percent cell count reference ranges are not reported, since discordance with absolute values may lead to misinterpretation of CBC data. Current Interpretive Data was last revised on 2017. Testing performed by: [facility], [address] [place] [phone] Basophil pct 0.6 % [facility]ANDRA [facility] Comment: Interpretive Data Percent cell count reference ranges are not reported, since discordance with absolute values may lead to misinterpretation of CBC data. Current Interpretive Data was last revised on 2017. Testing performed by: [facility], [address] [place] [phone] Blood 09/17/2024 9:43 AM CDT 09/17/2024 9:57 AM CDT Srini Smith MD LAB BLOOD ORDERABLES Final R esult KATHARINE GABRIEL [facility] Department [place] [address] * (ABNORMAL) CBC with auto differential (09/17/2024 9:43 AM CDT) Pathologist [facility] WBC 4.78 3.80 - 9.90 K/cumm Comment:Testing performed by : [facility], [address] [place], [place] [phone] Hgb 13.1 13.0 - 17.5 g/dL CERNER BJ Comment:Testing performed by : [facility], [address] [place], [place] [phone] Hct 38.7(L) 38.9 - 50.3 % CERNER BJ Comment:Testing performed by : [facility], [address] [place], [place] [phone] Plt 252 150 - 400 K/cumm CERNER BJ Comment:Testing performed by : [facility], [address] [place], [place] [phone] MPV 7.7 6.8 - 10.4 fL CERNER BJ Comment:Testing performed by : [facility], [address] [place], [place] [phone] RBC 4.02(L) 4.30 - 5.80 M/cumm CERNER BJ Comment:Testing performed by : [facility], [address] [place], [place] [phone] MCV 96.1 81.3 - 96.4 fL CERNER BJ Comment:Testing performed by : [facility], [address] [place], [place] [phone] MCH 32.5 27.1 - 33.3 pg CERNER BJ Comment:Testing performed by : [facility], [address] [place] [address] MCHC 33.8 32.3 - 35.7 g/dL CERNER BJ Comment:Testing performed by : [facility], [address] [place] [address] RDW CV 14.8 11.1 - 14.9 % CERNER BJ Comment:Testing performed by : [facility], [address] [place] [address] NRBC abs 0.00 0.00 - 0.01 K/cumm CERNER BJ Comment:Testing performed by : [facility], [address] [place] [phone] Blood 09/17/2024 9:43 AM CDT 09/17/2024 9:57 AM CDT us Srini Smith MD LAB BLOOD ORDERABLES Final R esult Performing Organization Address City/[facility]/ZIP Co de Phone Number [facility] Department [place] [address] * Lactate dehydrogenase (LD) (09/17/2024 9:43 AM CDT) Pathologist [facility] Lactate dehydrogenase (LDH) 193 100 - 250 Units/L Blood 09/17/2024 9:43 AM CDT 09/17/2024 9:59 AM CDT Sriin Smith MD LAB BLOOD ORDERABLES Final R esult Performing Organization Address [facility] Co de Phone Number [facility] Department [place] [address] * Beta 2 microglobulin, serum (09/17/2024 9:43 AM CDT) [facility] Beta 2 Microglobulin, Serum 2.10 1.00 - 2.50 mg/L Comment: Interpretive Data The Michael Beta-2 microglobulin assay procedure was used. Results from different manufacturers or methods may not be comparable. Serial testing should be performed using the same method. Blood 09/17/2024 9:43 AM CDT 09/17/2024 10:29 AM CDT Srini Smith MD LAB BLOOD ORDERABLES Final R esult Performing Organization Address [facility]/ZIP Co de Phone Number [facility] Department [place] [address] * (ABNORMAL) Comprehensive metabolic panel (09/17/2024 9:43 AM CDT) Sodium 141 135 - 145 mmol/L Potassium, pl 4.0 3.3 - 4.9 mmol/L [facility] Chloride 99 97 - 110 mmol/L [facility] CO2 33(H) 22 - 32 mmol/L [facility] Anion gap 9 2 - 15 mmol/L [facility] BUN 9 6 - 25 mg/dL [facility] Creatinine 0.76(L) 0.80 - 1.30 mg/dL [facility] Glucose 192 70 - 199 mg/dL [facility] Comment: Interpretive Data Fasting glucose >/= [...] 2022. Calcium 9.3 8.5 - 10.3 mg/dL [facility] Bilirubin, total 0.7 0.1 - 1.2 mg/dL [facility] Protein, pl 6.5 6.5 - 8.5 g/dL [facility] Albumin 4.3 3.5 - 5.0 g/dL [facility] Alk phos 91 40 - 130 Units/L [facility] ALT 22 7 - 55 Units/L [facility] AST 20 10 - 50 Units/L [facility] Blood 09/17/2024 9:43 AM CDT 09/17/2024 9:59 AM CDT us Srini Smith MD LAB BLOOD ORDERABLES Final R esult [facility] One [facility] Department [place] [address] * Colonoscopy (04/23/2023 2:53 PM DENTAL BILLER) Anatomical Region Laterality Modality Other Narrative Procedure Note Radha Shaw MD - 04/23/2023 2:53 PM [facility] Patient Name: Konrad Nieto Procedure Date: 04/23/2023 2:53 PM Date of : 1945 Admit Type: Outpatient Age: 77 Gender: Male Attending MD: Radha Shaw M.D. Room: [facility] ENDOSCOPY ROOM 9 Note Status: Finalized Procedure: [...] scope was passed under direct vision.The CF [id number] endoscope was introduced through the anus [...] On: 04/23/2023 2:53 PM Recognized by the [place] [employer] for promoting quality in endoscopy us Radha Shaw MD ENDOSCOPY PROCEDURES Final Res ult * (ABNORMAL) Hemoglobin A1c (04/04/2022 1:00 AM DENTAL BILLER) Hgb A1C 7.9(H) 4.0 - 5.6 % [facility] Estimated Average Glucose 180 mg/dL [facility] Comment: The ADA recommends reporting an estimated Average Glucose (eAG) with all Hemoglobin A1c results using the equation derived from a study of 507 normal and diabetic adults. Minority populations were underrepresented and children were not included. (Diabetes Care 2020; 43(S1): S66-S76). The eAG is not equivalent to a fasting glucose. Blood 04/04/2022 1:00 AM DENTAL BILLER 04/04/2022 1:45 AM DENTAL BILLER Srini Smith MD LAB BLOOD ORDERABLES Final R esult [facility] One [facility] Department [place] [address] * Lipid panel (04/04/2022 1:00 AM DENTAL BILLER) Cholesterol 94 30 - 199 mg/dL [facility] Comment: Interpretive Data Ages < or [...] revised on 2017. Triglycerides 51 <=149 mg/dL [facility] Comment: Interpretive Data Ages < or [...] revised on 2017. HDL 53 >=40 mg/dL [facility] Comment: Interpretive Data Ages < or [...] on 2017. LDL, calculated 31 <=129 mg/dL [facility] Comment: Interpretive Data Ages < or [...] revised on 2017. Non-HDL Cholesterol 41 mg/dL [facility] Comment: Interpretive Data Ages < or [...] revised on 2017. Chol/HDL ratio 2 [facility] Blood 04/04/2022 1:00 AM DENTAL BILLER 04/04/2022 1:42 AM DENTAL BILLER us Srini Smith MD LAB BLOOD ORDERABLES Final R esult [facility] Department [place] [address] * Hepatitis C antibody (01/22/2019 2:22 PM DENTAL BILLER) Hep C Ab Nonreactive Nonreactive [facility] Comment: Interpretive Data Positive results should be confirmed by a molecular method. If positive, a second separately collected sample should be submitted for Hepatitis C Virus (HCV) RNA Detection and Quantitation by Real-Time Reverse Wallpaper Inspector-PCR (RT-PCR). Current interpretive data was last revised on 2016. Blood specimen (specimen) 01/22/2019 2:22 PM DENTAL BILLER 01/22/2019 2:35 PM DENTAL BILLER us Annie donald NP LAB MICROBIOLOGY - GENERAL ORDERABLES Edited Result - Final Performing Organization Address [facility] Co de Phone Number [facility] Department [place] [address] from Last 3 Months or Most Recently Relevant to [place] [address] [facility] MEDICARE ADVANTAGE [facility] MEDICARE ADVANTAGE Advance Directives For more information, please contact: [phone] * Full Code (Latest Code Status on File) Date Activated Date Inactivated Comments 04/23/2023 3:07 PM 04/23/2023 8:55 PM * Full Code Date Activated Date Inactivated Comments 04/03/2022 11:40 PM 04/06/2022 9:40 PM * Full Code Date Activated Date Inactivated Comments 04/26/2018 6:57 AM 04/26/2018 1:31 PM Care Teams Replenishment Analyst Relationship Specialty Start Date End Date Courtney Pitt NP [facility] [address] [place] [phone] PCP - General Internal Medicine 09/17/24 Srini Smith MD [address] [facility] MED[facility], [facility] [address], [address] [place] [address] Medical Oncologist/Immigration Attorney Medical Oncology 04/07/22
--- OUTSIDE RECORDS SUMMARY | 2024-09-17 23:48 | XMS_ITS | Encounter Summary ---
Author Organization [facility] Address [address] [place] [address] Phone Care Team Providers Care Tableau Administrator Name Role Phone Kun Oconnor MD Primary Care Provider + [phone] Chace Newman DO Primary Care Provider [phone] Srini Smith MD Unavailable [phone] Courtney Pitt NP Primary Care Provider [phone] Encounter Details Date Type Department Care Team (Latest Contact Info) Description 07/19/2019 Orders Only [facility] Scanning, Provider Social History Tobacco Use Types Packs/Day Years Used Date Smoking Tobacco: Never Smokeless Tobacco: Never Sex and Gender Information Value Date Recorded Sex Assigned at Not on file Legal 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 MEDICAL ONCOL[facility], [facility] [address]A, [address], [address] [place] [address] Medical Oncologist/Digital Forensic Analyst Medical Oncology 04/07/22 documented as of this encounter
--- OUTSIDE RECORDS SUMMARY | 2024-09-17 23:48 | XMS_ITS | Encounter Summary ---
Author Organization [facility] Address [address] [place] [address] Phone Care Team Providers Care Sheet Pile Driver Operator Name Role Phone Kun Oconnor MD Primary Care Provider + [phone] Chace Newman DO Primary Care Provider [phone] Srini Smith MD Unavailable [phone] Courtney Pitt NP Primary Care Provider [phone] Encounter Details Date Type Department Care Team (Latest Contact Info) Description 07/21/2019 Orders Only [facility] Scanning, Provider Social History Tobacco Use Types Packs/Day Years Used Date Smoking Tobacco: Never Smokeless Tobacco: Never Sex and Gender Information Value Date Recorded Sex Assigned at Not on file Legal Sex Male 7:49 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 Gender Identity Not on file Sexual Orientation [...] on filedocumented in this encounter Care Teams Sheet Pile Driver Operator Relationship Specialty Start Date End Date Kun Oconnor MD [address] [place] [address] PCP - General 12/29/16 04/03/22 Chace Newman DO [address] [place] [address] PCP - General Family Medicine 04/04/22 09/16/24 Courtney Pitt NP [address] [facility] [address] [place] [address] PCP - General Internal Medicine 09/17/24 Srini Smith MD [address] [facility] MED[facility], [facility] 7A, [address], [address] [place] [address] Medical Oncologist/Director Content Marketing Medical Oncology 04/07/22 documented as of this encounter
--- OUTSIDE RECORDS SUMMARY | 2024-09-17 23:48 | XMS_ITS | Encounter Summary ---
Author Organization [facility] Address [address] [place] [address] Care Team Providers Care Register Of Wills Name Role Phone Unavailable Primary Care Provider Unavailabl e Encounter Details Date Type Department Care Team (Late st Contact Info) Description 01/01/2019 Lab Requisition [facility]ology Lab [address] [place] [address] Mainor Zavaleta MD [address] [place] [address] Enlarged lymph nodes, unspecified Social History [...] AM CDT) Case Report Flow Cytometry Case: [id number] Authorizing Provider: Mainor Zavaleta MD Collected: 01/01/2019 08:24 AM Ordering Location: [facility] Lab Received: 01/01/2019 12:16 PM Pathologist: Omkar Houston MD Specimen: Lymph Node, ANNA PORTAL AORTIC LYMPH NODE 9 11:50 AM CDT [facility] Final Diagnosis Lymph node, periportal aortic, flow cytometric immunophenotypic analysis: - 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 - See interpretation. 9 11:50 AM [facility] at 1150 CDT Flow Cytometry [...] the flow cytometry specimen is reviewed for production quality analyst purposes. Overall, the periportal aortic lymph node shows an evidence of involvement by CD5-negative, [id number] mature B-cell lymphoma. Correlation with clinical findings and concurrent tissue biopsy ([id number]) is required. 9 11:50 AM [facility] Flow Cytometry Results Differential Result Comment Flow Cell Count /uL 114,000 Total Viability % 79.0 Lymphocytes % 98 Dim CD45 Region % 1 Monocytes % 0 Granulocytes % 1 9 11:50 AM [facility] Reason for test Enlarged lymph nodes , unspecified 9 11:50 AM [facility] Client Specimen ID # [id number] 9 11:50 AM [facility] Number of markers 16 were performed. A-2 Flow CD3 A-4 Flow CD10 A-6 Flow CD20 A-7 Flow CD23 A-12 Flow CD2 A-13 Flow CD4 A-16 Flow CD1a A-3 Flow CD5 A-5 Flow CD19 A-8 Flow CD34 A-9 Flow CD45 A-14 Flow CD7 A-15 Flow CD8 A-17 Flow CD30 A-10 [place]+CD19+ A-11 Lambda+CD19+ 9 11:50 AM [facility] Disclaimer Test performed at [facility], [address] [place] [address], [id number]. *The established laboratory minimum viability is 70%. [...] complexity clinical testing. 9 11:50 AM CDT [facility] Embedded Images 9 11:50 AM CDT [facility] Pathology/Cytolo gy ENTIRE LYMPH NODE / Unknown 01/01/2019 8:24 AM CDT 01/01/2019 12:16 PM CDT Mainor Zavaleta MD LAB - PATHOLOGY/CYTOLOGY ORDER ROMAIN Final Result [facility] [address] [phone] documented in this encounter Visit Diagnoses Diagnosis Enlarged lymph nodes, unspecified documented in this encounter
--- OUTSIDE RECORDS SUMMARY | 2024-09-17 23:48 | XMS_ITS | Encounter Summary ---
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 Comment:Testing performed by : [facility][Note 3] Heme Lab, [address] [place] [address] Monocyte abs 0.51 0.20 - 0.80 K/cumm CERSANDRA [facility] Comment:Testing performed by : [facility][Note 3] Heme Lab, [address] [place], [place] [id number] Eosinophil abs 0.09 0.00 - 0.50 K/cumm CERSANDRA [facility] Comment:Testing performed by : [facility][Note 3] Heme Lab, [address] [place], [place] [phone] Basophil abs 0.03 0.00 - 0.10 K/cumm CERSANDRA [facility] Comment:Testing performed by : [facility] Lab, [address] [place] [phone] Neutrophil pct 77.0 % CERNER [facility] Comment: Interpretive Data Percent cell count reference ranges are not reported, since discordance with absolute values may lead to misinterpretation of CBC data. Current Interpretive Data was last revised on 2017. Testing performed by: [facility][Note 3] Heme Lab, [address] [place] [phone] Lymphocyte pct 10.0 % CERNER [facility] Comment: Interpretive Data Percent cell count reference ranges are not reported, since discordance with absolute values may lead to misinterpretation of CBC data. Current Interpretive Data was last revised on 2017. Testing performed by: [facility][Note 3] Heme Lab, [address] [place] [phone] Monocyte pct 10.6 % CERNER [facility] Comment: Interpretive Data Percent cell count reference ranges are not reported, since discordance with absolute values may lead to misinterpretation of CBC data. Current Interpretive Data was last revised on 2017. Testing performed by: [facility][Note 3] Heme Lab, [address] [place] [phone] Eosinophil pct 1.9 % [facility] Comment: Interpretive Data Percent cell count reference ranges are not reported, since discordance with absolute values may lead to misinterpretation of CBC data. Current Interpretive Data was last revised on 2017. Testing performed by: [facility][Note 3] Heme Lab, [address] [place] [phone] Basophil pct 0.6 % [facility] Comment: Interpretive Data Percent cell count reference ranges are not reported, since discordance with absolute values may lead to misinterpretation of CBC data. Current Interpretive Data was last revised on 2017. Testing performed by: [facility][Note 3] Heme Lab, [address] [place] [phone] Blood 09/17/2024 9:43 AM CDT 09/17/2024 9:57 AM CDT us Srini Smith MD LAB BLOOD ORDERABLES Final R esult Performing Organization Address City/[facility]/ZIP Co de Phone Number KATHARINE [facility] [place] [address] * Beta 2 microglobulin, serum (09/17/2024 9:43 [...] LAB BLOOD ORDERABLES Final R esult KATHARINE [facility] [place] [address] * (ABNORMAL) CBC with auto differential (09/17/2024 9:43 AM CDT) WBC 4.78 3.80 - 9.90 K/cumm Comment:Testing performed by : [facility][Note 3] Heme Lab, [address] [place] [address] Hgb 13.1 13.0 - 17.5 g/dL CERNER [facility] Comment:Testing performed by : [facility][Note 3] Heme Lab, [address] [place] [address] Hct 38.7(L) 38.9 - 50.3 % C[facility]ER [facility] Comment:Testing performed by : [facility][Note 3] Heme Lab, [address] [place] [address] Plt 252 150 - 400 K/cumm CERNER [facility] Comment:Testing performed by : [facility][Note 3] Heme Lab, [address] [place] [address] MPV 7.7 6.8 - 10.4 fL C[facility]ER [facility] Comment:Testing performed by : [facility][Note 3] Heme Lab, [address] [place] [address] RBC 4.02(L) 4.30 - 5.80 M/cumm CERNER [facility] Comment:Testing performed by : [facility][Note 3] Heme Lab, [address] [place] [address] MCV 96.1 81.3 - 96.4 fL C[facility]ER [facility] Comment:Testing performed by : [facility][Note 3] Heme Lab, [address] [place] [address] MCH 32.5 27.1 - 33.3 pg CERNER [facility]J Comment:Testing performed by : [facility][Note 3] Heme Lab, [address] [place] [address] MCHC 33.8 32.3 - 35.7 g/dL CERNER [facility] Comment:Testing performed by : [facility][Note 3] Heme Lab, [address] [place] [address] RDW CV 14.8 11.1 - 14.9 % C[facility] Comment:Testing performed by : [facility][Note 3] Heme Lab, [address] [place] [phone] NRBC abs 0.00 0.00 - 0.01 K/cumm [facility] Comment:Testing performed by : [facility] Heme Lab, [address] [place] [phone] Blood 09/17/2024 9:43 AM CDT 09/17/2024 9:57 AM CDT Srini Smith MD LAB BLOOD ORDERABLES Final R esult [facility] Department [place] [address] * (ABNORMAL) Comprehensive metabolic panel (09/17/2024 9:43 AM CDT) Sodium 141 135 - 145 mmol/L Potassium, pl 4.0 3.3 - 4.9 mmol/L [facility] Chloride 99 97 - 110 mmol/L [facility] CO2 33(H) 22 - 32 mmol/L [facility] Anion gap 9 2 - 15 mmol/L [facility] BUN 9 6 - 25 mg/dL [facility] Creatinine 0.76(L) 0.80 - 1.30 mg/dL [facility] Glucose 192 70 - 199 mg/dL [facility] Comment: Interpretive Data Fasting glucose >/= 126 [...] 2022. Calcium 9.3 8.5 - 10.3 mg/dL [facility] Bilirubin, total 0.7 0.1 - 1.2 mg/dL [facility] Protein, pl 6.5 6.5 - 8.5 g/dL [facility] Albumin 4.3 3.5 - 5.0 g/dL [facility] Alk phos 91 40 - 130 Units/L [facility] ALT 22 7 - 55 Units/L [facility] AST 20 10 - 50 Units/L [facility] Blood 09/17/2024 9:43 AM CDT 09/17/2024 9:59 AM CDT us Srini Smith MD LAB BLOOD ORDERABLES Final R esult Performing Organization Address City/[facility]/ZIP Co de Phone Number [facility] Department [place] [address] * Lactate dehydrogenase (LD) (09/17/2024 9:43 AM CDT) Lactate dehydrogenase (LDH) 193 100 - 250 Units/L Blood 09/17/2024 9:43 AM CDT 09/17/2024 9:59 AM CDT us Srini Smith MD LAB BLOOD ORDERABLES Final R esult Performing Organization Address City/[facility] Co de Phone Number [facility] [place] [address] documented in this encounter Visit Diagnoses Diagnosis 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) Marginal zone lymphoma, unspecified site, extranodal and solid organ sites documented in this encounter Care Teams Inspector Handbag Frames Relationship Specialty Start Date End Date Courtney Pitt NP [facility][NOTE 2] [facility] [address] [place] [address] PCP - General Internal Medicine 09/17/24 Srini Smith MD [address] [facility], [facility] [address] [place] [address] Medical Oncologist/Cyber Policy And Strategy Planner Medical Oncology 04/07/22 documented as of this encounter
--- OUTSIDE RECORDS SUMMARY | 2024-09-17 23:48 | XMS_ITS | Referral Summary ---
Author Organization [facility] 2 Address [address] [place] [address] Care Team Providers Care Steam Station Supervisor Name Role Phone Srini Smith MD Unavailable [phone] Courtney Pitt NP Primary Care Provider [phone] Encounters Date Type Department Care Team Description 09/17/2024 Documentation [facility] Oncology [address] [place] [phone] Jessica Luong RN 09/17/2024 Documentation [facility] Social Work [address] [place] [phone] Petar Sweeney MSW 09/17/2024 10:15 AM CDT Lab [facility] - Lab Collection [facility] [address] [address] 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) 09/17/2024 10:30 AM CDT Office Visit [facility] Oncology [facility]0 [facility] 6 [place] [phone] Annie Knight NP 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) 09/17/2024 9:30 AM CDT Lab [facility] Oncology Lab [facility]0 [facility] 6 [place] [address] 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) 09/15/2024 ACO Medication Access [facility] Accountable Care Organization [address] [place] [address] Carie Jonas, [facility] 09/03/2024 Documentation [facility] Oncology [address] [facility] Floor 6 [place] [phone] June, RMA Appointment 09/02/2024 Telephone [facility] Oncology [address] [place] [phone] Jessica Luong, RN 09/01/2024 Telephone [facility] Oncology [address] [place] [phone] Jessica Luong RN 08/15/2024 Telephone [facility] Oncology [address] [place] [phone] Jessica Luong, RN from Last 3 Months [...] 04/05/2022 Assessment & Plan (04/06/2022 12:28 PM CONTINUOUS IMPROVEMENT FACILITATOR): Pt presented with productive cough and malaise. 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 On 2L O2. Likely 2/2 pna - Manage pna as elsewhere - Clinically improving with antibiotics. Wean O2 as tolerated Hyponatremia 04/05/2022 04/06/2022 Assessment & Plan (04/05/2022 1:09 PM CONTINUOUS IMPROVEMENT FACILITATOR): Na 1344 -> 139. 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/03/2022 023 Assessment & Plan (04/05/2022 7:53 AM CONTINUOUS IMPROVEMENT FACILITATOR): - s/p Rituxan x4 (8424-3272) - Now with PD with likely left [...] on file Legal Sex Male 7:49 AM CONTINUOUS IMPROVEMENT FACILITATOR Gender Identity Not on file Sexual Orientation [...] lymphoma (CMS/HCC) (HCC) COLONOSCOPY 04/23/2023 2:53 PM CONTINUOUS IMPROVEMENT FACILITATOR HEMOGLOBIN A1C STAT 04/04/2022 1:00 AM CONTINUOUS IMPROVEMENT FACILITATOR LIPID PANEL STAT 04/04/2022 1:00 AM CONTINUOUS IMPROVEMENT FACILITATOR HEPATITIS C ANTIBODY Routine 01/22/2019 2:22 PM CONTINUOUS IMPROVEMENT FACILITATOR Ace marginal zone B-cell lymphoma (HCC) from [...] LAB BLOOD ORDERABLES Final R esult [facility] Department [place] [address] * (ABNORMAL) Differential, auto (09/17/2024 9:43 AM CDT) Neutrophil abs 3.68 1.50 - 6.50 K/cumm Comment:Testing performed by : [facility], [address] [place] [address] Lymphocyte abs 0.48(L) 0.80 - 3.30 K/cumm CERNER GABRIEL Comment:Testing performed by : [facility], [address] [place], [place] [id number] Monocyte abs 0.51 0.20 - 0.80 K/cumm CERSANDRA RIOS Comment:Testing performed by : [facility], [address] [place], [place] [id number] Eosinophil abs 0.09 0.00 - 0.50 K/cumm KATHARINE RIOS Comment:Testing performed by : [facility], [address] [place] [phone] Basophil abs 0.03 0.00 - 0.10 K/cumm [facility] Comment:Testing performed by : [facility], [address] [place] [phone] Neutrophil pct 77.0 % CERNER BJ Comment: Interpretive Data Percent cell count reference ranges are not reported, since discordance with absolute values may lead to misinterpretation of CBC data. Current Interpretive Data was last revised on 2017. Testing performed by: [facility], [address] [place] [phone] Lymphocyte pct 10.0 % CERNER BJ Comment: Interpretive Data Percent cell count reference ranges are not reported, since discordance with absolute values may lead to misinterpretation of CBC data. Current Interpretive Data was last revised on 2017. Testing performed by: [facility], [address] [place] [phone] Monocyte pct 10.6 % KATHARINE TEMPLE Comment: Interpretive Data Percent cell count reference ranges are not reported, since discordance with absolute values may lead to misinterpretation of CBC data. Current Interpretive Data was last revised on 2017. Testing performed by: [facility], [address] [place] [phone] Eosinophil pct 1.9 % KATHARINE TEMPLE Comment: Interpretive Data Percent cell count reference ranges are not reported, since discordance with absolute values may lead to misinterpretation of CBC data. Current Interpretive Data was last revised on 2017. Testing performed by: [facility], [address] [place] [phone] Basophil pct 0.6 % KATHARINE TEMPLE Comment: Interpretive Data Percent cell count reference ranges are not reported, since discordance with absolute values may lead to misinterpretation of CBC data. Current Interpretive Data was last revised on 2017. Testing performed by: [facility], [address] [place] [phone] Blood 09/17/2024 9:43 AM CDT 09/17/2024 9:57 AM CDT us Srini Smith MD LAB BLOOD ORDERABLES Final R esult KATHARINE RIOS [facility] Department [place] [address] * (ABNORMAL) CBC with auto differential (09/17/2024 9:43 AM CDT) WBC 4.78 3.80 - 9.90 K/cumm Comment:Testing performed by : [facility], [address] [place] [phone] Hgb 13.1 13.0 - 17.5 g/dL KATHARINE TEMPLE Comment:Testing performed by : [facility], [address] [place] [address] Hct 38.7(L) 38.9 - 50.3 % [facility] Comment:Testing performed by : [facility], [address] [place], [place] [phone] Plt 252 150 - 400 K/cumm CERSANDRA BJ Comment:Testing performed by : [facility], [address] [place] [address] MPV 7.7 6.8 - 10.[address] [facility] Comment:Testing performed by : [facility], [address] [place], [place] [phone] RBC 4.02(L) 4.30 - 5.80 M/cumm CERSANDRA BJ Comment:Testing performed by : [facility], [address] [place], [place] [phone] MCV 96.1 81.3 - 96.[address] [facility] Comment:Testing performed by : [facility], [address] [place], [place] [id number] MCH 32.5 27.1 - 33.[address] [facility] Comment:Testing performed by : [facility], [address] [place] [address] MCHC 33.8 32.3 - 35.7 g/dL [facility] Comment:Testing performed by : [facility], [address] [place] [address] RDW CV 14.8 11.1 - 14.9 % [facility] Comment:Testing performed by : [facility], [address] [place] [address] NRBC abs 0.00 0.00 - 0.01 K/cumm [facility] Comment:Testing performed by : [facility], [address] [place] [address] Blood 09/17/2024 9:43 AM CDT 09/17/2024 9:57 AM CDT Srini Smith MD LAB BLOOD ORDERABLES Final R esult [facility] Department [place] [address] * Lactate dehydrogenase (LD) (09/17/2024 9:43 AM CDT) [facility] Lactate dehydrogenase (LDH) 193 100 - 250 Units/L Blood 09/17/2024 9:43 AM CDT 09/17/2024 9:59 AM CDT Srini Smith MD LAB BLOOD ORDERABLES Final R esult Performing Organization Address [facility] Co de Phone Number [facility] [address] * Beta 2 microglobulin, serum (09/17/2024 9:43 AM CDT) [facility] Beta 2 Microglobulin, Serum 2.10 1.00 - 2.50 mg/L Comment: Interpretive Data The Michael Beta-2 microglobulin assay procedure was used. Results from different manufacturers or methods may not be comparable. Serial testing should be performed using the same method. Blood 09/17/2024 9:43 AM CDT 09/17/2024 10:29 AM CDT us Srini Smith MD LAB BLOOD ORDERABLES Final R esult Performing Organization Address [facility] Co de Phone Number [facility] Department [place] [address] * (ABNORMAL) Comprehensive metabolic panel (09/17/2024 9:43 AM CDT) [facility] Sodium 141 135 - 145 mmol/L Potassium, pl 4.0 3.3 - 4.9 mmol/L [facility] Chloride 99 97 - 110 mmol/L [facility] CO2 33(H) 22 - 32 mmol/L [facility] Anion gap 9 2 - 15 mmol/L [facility] BUN 9 6 - 25 mg/dL [facility] Creatinine 0.76(L) 0.80 - 1.30 mg/dL [facility] Glucose 192 70 - 199 mg/dL [facility] Comment: Interpretive Data Fasting glucose >/= 126 [...] 2022. Calcium 9.3 8.5 - 10.3 mg/dL [facility] Bilirubin, total 0.7 0.1 - 1.2 mg/dL [facility] Protein, pl 6.5 6.5 - 8.5 g/dL [facility] Albumin 4.3 3.5 - 5.0 g/dL [facility] Alk phos 91 40 - 130 Units/L [facility] ALT 22 7 - 55 Units/L [facility] AST 20 10 - 50 Units/L [facility] Blood 09/17/2024 9:43 AM CDT 09/17/2024 9:59 AM CDT us Srini Smith MD LAB BLOOD ORDERABLES Final R esult [facility] Department [place] [address] * Colonoscopy (04/23/2023 2:53 PM CONTINUOUS IMPROVEMENT FACILITATOR) Anatomical Region Laterality Modality Other Narrative Procedure Note Early, Radha Carson MD - 04/23/2023 2:53 PM CST [facility] Patient Name: Konrad Nieto Procedure Date: 04/23/2023 2:53 PM Date of : 1945 Admit Type: Outpatient Age: 77 Gender: Male Attending MD: Radha Shaw M.D. Room: [facility] ENDOSCOPY ROOM 9 Note Status: [...] The scope was passed under direct vision.The [id number] endoscope was introduced through the anus [...] On: 04/23/2023 2:53 PM Recognized by the [place] [employer] for promoting quality in endoscopy us Radha Shaw MD ENDOSCOPY PROCEDURES Final Res ult * (ABNORMAL) Hemoglobin A1c (04/04/2022 1:00 AM CONTINUOUS IMPROVEMENT FACILITATOR) Hgb A1C 7.9(H) 4.0 - 5.6 % [...] a fasting glucose. Blood 04/04/2022 1:00 AM CONTINUOUS IMPROVEMENT FACILITATOR 04/04/2022 1:45 AM CONTINUOUS IMPROVEMENT FACILITATOR us Srini Smith MD LAB BLOOD ORDERABLES Final R esult [facility] Department [place] [address] * Lipid panel (04/04/2022 1:00 AM CONTINUOUS IMPROVEMENT FACILITATOR) Cholesterol 94 30 - 199 mg/dL KATHARINE [...] on 2017. Triglycerides 51 <=149 mg/dL [facility] Comment: Interpretive Data Ages < or [...] 2017. LDL, calculated 31 <=129 mg/dL [facility] Comment: Interpretive Data Ages < or [...] on 2017. Non-HDL Cholesterol 41 mg/dL [facility] Comment: Interpretive Data Ages < or [...] last revised on 2017. Chol/HDL ratio [address] [facility] Blood 04/04/2022 1:00 AM CONTINUOUS IMPROVEMENT FACILITATOR 04/04/2022 1:42 AM CONTINUOUS IMPROVEMENT FACILITATOR us Srini Smith MD LAB BLOOD ORDERABLES Final R esult [facility] Department [place] [address] * Hepatitis C antibody (01/22/2019 2:22 PM CONTINUOUS IMPROVEMENT FACILITATOR) Hep C Ab Nonreactive Nonreactive KATHARINE RIOS Comment: Interpretive Data Positive results should be confirmed by a molecular method. If positive, a second separately collected sample should be submitted for Hepatitis C Virus (HCV) RNA Detection and Quantitation by Real-Time Reverse Mechanical Shovel Operator-PCR (RT-PCR). Current interpretive data was last revised on 2016. Blood specimen (specimen) 01/22/2019 2:22 PM CONTINUOUS IMPROVEMENT FACILITATOR 01/22/2019 2:35 PM CONTINUOUS IMPROVEMENT FACILITATOR Annie donald MACHINE STAMPER LAB MICROBIOLOGY - GENERAL ORDERABLES Edited Result - Final [facility] Department [place] [address] from Last 3 Months or Most Recently Relevant to Health Maintenance Insurance [facility] MEDIC[facility] ADVANTAGE [facility] MEDIC[facility] ADVANTAGE Advance Directives For more information, please contact: [phone] * Full Code (Latest Code Status on File) Date Activated Date Inactivated Comments 04/23/2023 3:07 PM 04/23/2023 8:55 PM * Full Code Date Activated Date Inactivated Comments 04/03/2022 11:40 PM 04/06/2022 9:40 PM * Full Code Date Activated Date Inactivated Comments 04/26/2018 6:57 AM 04/26/2018 1:31 PM Care Teams Steam Station Supervisor Relationship Specialty Start Date End Date Courtney Pitt NP [address] [place] [address] [address] PCP - General Internal Medicine 09/17/24 Srini Smith MD [address] [facility] MEDICAL ONCOLOGY, [facility] [address]A, [address], [address] [place] [address] Medical Oncologist/Manager Intern Medical Oncology 04/07/22
--- OUTSIDE RECORDS SUMMARY | 2024-09-17 23:48 | XMS_ITS | Encounter Summary ---
Author Organization [facility] Address [address] [place] [address] Care Team Providers Care Ham Passer Name Role Phone Unavailable Primary Care Provider Unavailabl e Encounter Details Date Type Department Care Team (Late st Contact Info) Description 01/03/2019 Lab Requisition [facility] Care Pathology Lab [address] [place] [address] Mainor Zavaleta MD [address] [place] [address] Social History Tobacco Use Types Packs/Day [...] CDT) Case Report Surgical Pathology Report Case: [id number] Authorizing Provider: Mainor Zavaleta MD Collected: 01/01/2019 09:25 AM Ordering Location: [facility] Received: 01/03/2019 09:41 AM Pathologist: Lu King MD Specimen: Lymph Node Biopsy, [id number] 01/06/2019 11:46 AM [facility] PATHOLOGY LAB Final Diagnosis Lymph nodes, periportal aortic, excision: - Marginal zone lymphoma. - See description. 01/06/2019 11:46 AM [facility] at [address] [facility] [facility] [address] [address] Microscopic Description and Comment Review of the [...] are performed on block B3 in the [facility] Department of Pathology, with appropriately reactive controls, and demonstrate the followings: CD20 and BCL-2 are positive in the neoplastic cells. CD3, CD5, CD10, CD23, CD43, cyclin D1, and MUM-1 are negative in the neoplastic cells. CD23 shows a few residual follicular dendritic cell meshworks that are colonized by neoplastic cells. Concurrent lymph node flow cytometry ([id number]) detects a CD5-negative, NM77-hbzdeiqa mature B-cell lymphoma. 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 Correlation with clinical findings and relevant cytogenetic/molecular testing is required. KR/MM 01/06/2019 11:46 AM [facility] PATHOLOGY LAB Clinical History Lymphadenopathy. 01/06/2019 11:46 AM [facility] PATHOLOGY LAB Materials Received Received from [facility], [place], [place] are 5 slides and 5 blocks labeled Konrad Nieto and [id number]. All original materials are returned along with a copy of our report. 01/06/2019 11:46 AM [facility] PATHOLOGY LAB Disclaimer The performance characteristics of all immunohistochemical and indirect immunofluorescence stains (if any) cited in this report were determined by the Histopathology Laboratory of [facility]. Some of these tests were developed [...] interpretation of this case is performed by [facility] Pathology at [facility], [address] [place] [address]. 01/06/2019 11:46 AM [facility] PATHOLOGY LAB Embedded Images 01/06/2019 11:46 AM [facility] PATHOLOGY LAB Pathology/Cytolo gy BIOPSY OF LYMPH NODE / Unknown 01/01/2019 9:25 AM CDT 01/03/2019 9:41 AM CDT Mainor Zavaleta MD LAB - PATHOLOGY/CYTOLOGY ORDER ROMAIN Final Result [facility] PATHOLOGY LAB [address] [place] [address] documented in this encounter Visit Diagnoses Not on filedocumented in this encounter
--- OUTSIDE RECORDS SUMMARY | 2024-09-17 23:48 | XMS_ITS | Clinical Summary ---
Author Organization [facility] Address [address] [place] [address] Care Team Providers Care Senior Oracle Developer Name Role Phone Unavailable Primary Care Provider Unavailabl e Source Comments [facility],non-owned Affiliates and Associated Physician Practices is amultiple site organization consisting of ambulatory clinics and hospital sitesin [place], [place], [place] and [place]. This disclosure is being madepursuant to the Care Everywhere program and may not contain all information available regarding this patient. Last updated 17.[facility] Social History Tobacco Use Types Packs/Day Years [...]
--- OUTSIDE RECORDS SUMMARY | 2024-09-17 23:48 | XMS_ITS | Encounter Summary ---
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
--- OUTSIDE RECORDS SUMMARY | 2024-09-17 23:48 | XMS_ITS | Encounter Summary ---
Author Organization [facility] Address [address] [place] [address] Phone Care Team Providers Care Carding Machine Feeder Name Role Phone Srini Smith MD Unavailable [phone] Courtney Pitt NP Primary Care Provider [phone] Encounter Details Date Type Department Care Team (Late st Contact Info) Description 09/17/2024 10:30 AM CDT Office Visit [facility] On[facility] Floor [address] [place] [address] Annie Knight NP [address] MED[facility] ON[facility]Y, [address] [place], [place] [id number] 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 Our social media executive will meet with him today. Incidental findings. [...] 09/17/2024 documented in this encounter Care Teams Carding Machine Feeder Relationship Specialty Start Date End Date Courtney Pitt NP [facility] [address] [place] [address] PCP - General Internal Medicine 09/17/24 Srini Smith MD [address] [facility] MEDICAL ONCOLOGY, [facility] [address]A, [address], [address] [place] [address] Medical Oncologist/Emergency Technician Medical Oncology 04/07/22 documented as of this encounter
[2024-09-18] MEDS: KETOROLAC 15 MG/ML VIAL (*BKC) IV PUSH (00:30)
[2024-09-18 00:44] LABS: Hematocrit 37.1 % (42.0-52.0); Hemoglobin 12.3 g/dL (14.0-18.0); Immature Granulocyte Percent A 0.3 % (0-0.5); Lymphocytes Absolute Auto 0.53 K/mm3 (0.9-3.2); Mean Corpuscular HGB Conc 33.2 g/dl (32-36); Mean Corpuscular Hemoglobin 32.9 pg (26-34); Mean Corpuscular Volume 99.2 fl (80-100); Nucleated Red Blood Cells Absolute Auto 0.000 K/mm3 (0.0-0.012); Nucleated Red Blood Cells Perc 0.0 % (0.0-0.2); Platelet Count Result 202 k/mm3 (150-375); Red Blood Count 3.74 M/mm3 (4.6-6.20); White Blood Count 6.1 K/mm3 (4.5-10.0)
--- NOTE | 2024-09-18 00:45 | PC.NURSE ---
Pt presents to ED c/o 10/12 sharp lower back pain, non radiating onset 4pm. Pt denies any trauma and/or injury to back. HX: dementia
[2024-09-18 00:59] LABS: Alanine Aminotransferase 30 U/L (6-50); Albumin Level 3.9 g/dL (3.5-5.1); Alkaline Phosphatase 70 U/L (38-126); Anion Gap 5 mmol/L (4-12); Aspartate Amino Transferase 42 U/L (17-59); Bilirubin,Total 0.6 mg/dL (0.2-1.3); Blood Urea Nitrogen 19 mg/dL (9-20); Calcium 8.9 mg/dL (8.4-10.2); Carbon Dioxide 33 mmol/L (22-30); Chloride 95 mmol/L (98-107); Estimated Glomerular Filt Rate > 60; Glucose 277 mg/dL (65-110); Potassium 3.4 mmol/L (3.4-5.0); Sodium 133 mmol/L (137-145); Total Protein 5.9 g/dL (6.3-8.2)
[2024-09-18 01:38] VITALS: BP 169/100; PULSE 83; RESP 16; O2SAT 95
== END 2024-09-18 01:41 | disposition home or self-care (01) ==
PROVIDERS: Emergency Provider Student in an Organized Health Care Education/Training Program; PCP Nurse Practitioner
DX: M51.370 Other intervertebral disc degeneration, lumbosacral region with discogenic back pain only (principal); F17.210 Nicotine dependence, cigarettes, uncomplicated; F01.50 Vascular dementia, unspecified severity, without behavioral disturbance, psychotic disturbance, mood disturbance, and anxiety; Z86.73 Personal history of transient ischemic attack (TIA), and cerebral infarction without residual deficits; I10 Essential (primary) hypertension; E11.9 Type 2 diabetes mellitus without complications; E78.5 Hyperlipidemia, unspecified
CPT/HCPCS: 36415; 72131; 80053; 85025; 96374; 99284; J1885

== ENCOUNTER 2024-12-15 12:49 | Inpatient (IN) | payer MEDICARE, MEDICAID, SELFPAY ==
[2024-12-15] VITALS (7 sets, daily range): BP systolic 160–172; BP diastolic 86–94; PULSE 71–93; RESP 16–20; TEMP 36.6–36.8; O2SAT 95–99; BMI 16.1
--- NOTE | ~2024-12-15 | CT_ITS ---
CT abdomen pelvis w con INDICATION: BRBPR COMPARISON: [None.] TECHNIQUE: Axial 2.5 mm images of the abdomen and pelvis were obtained following infusion of [100] mL Isovue 300. [ ] FINDINGS: [The lung bases are clear. ] [The liver parenchyma is unremarkable.] 1.3 cm right hepatic lobe cyst is noted.[ No intrahepatic mass or ductal dilatation is evident.] [ The gallbladder is unremarkable.] [ The pancreas and spleen are normal in appearance.] [ The adrenal glands are symmetric in size.] [The kidneys demonstrate symmetric uptake of contrast.] [No cystic mass is evident.] [There is no solid mass.] [There is no hydronephrosis. ] [ ] [Evaluation of the stomach and bowel is limited due to lack of oral contrast..] [The large bowel loops are unremarkable.] [Questionable soft tissue density within the rectum measuring 3.8 x 3.3 cm.] [ ] [The bladder and rectum are normal.] [No free intraperitoneal fluid or air is evident.] [ There is no significant retroperitoneal lymphadenopathy.] Moderate vascular calcification of the aorta and iliac vessels. [The lower thoracic and lumbar vertebrae are in normal alignment.] [ ] IMPRESSION: Soft tissue density in the rectum measuring 3.8 x 3.3 cm may represent stool however mass cannot be entirely excluded. Clinically indicated follow-up colonoscopy can be done for further evaluation. Reviewed, dictated and finalized at location S. IMPRESSION: Soft tissue density in the rectum measuring 3.8 x 3.3 cm may represent stool ho wever mass cannot be entirely excluded. Clinically indicated follow-up colonosc opy can be done for further evaluation.
[2024-12-15 13:20] LABS: Hematocrit 36.2 % (42.0-52.0); Hemoglobin 11.7 g/dL (14.0-18.0); Immature Granulocyte Percent A 0.5 % (0-0.5); Lymphocytes Absolute Auto 0.43 K/mm3 (0.9-3.2); Mean Corpuscular HGB Conc 32.3 g/dl (32-36); Mean Corpuscular Hemoglobin 33.3 pg (26-34); Mean Corpuscular Volume 103.1 fl (80-100); Nucleated Red Blood Cells Absolute Auto 0.000 K/mm3 (0.0-0.012); Nucleated Red Blood Cells Perc 0.0 % (0.0-0.2); Platelet Count Result 247 k/mm3 (150-375); Red Blood Count 3.51 M/mm3 (4.6-6.20); White Blood Count 8.8 K/mm3 (4.5-10.0)
[2024-12-15 13:33] LABS: INR 1.0; Partial Thromboplastin Time 31.0 Seconds (22.3-36.8); Prothrombin Time 12.9 Seconds (11.1-14.7)
[2024-12-15 13:43] LABS: Alanine Aminotransferase 18 U/L (6-50); Albumin Level 4.1 g/dL (3.5-5.1); Alkaline Phosphatase 88 U/L (38-126); Anion Gap 7 mmol/L (4-12); Aspartate Amino Transferase 22 U/L (17-59); Bilirubin,Total 0.4 mg/dL (0.2-1.3); Blood Urea Nitrogen 40 mg/dL (9-20); Calcium 9.5 mg/dL (8.4-10.2); Carbon Dioxide 28 mmol/L (22-30); Chloride 98 mmol/L (98-107); Estimated CRCL calculation 59 ml/min; Estimated Glomerular Filt Rate > 60; Glucose 130 mg/dL (65-110); Potassium 4.2 mmol/L (3.4-5.0); Sodium 133 mmol/L (137-145); Total Protein 6.5 g/dL (6.3-8.2)
--- OUTSIDE RECORDS SUMMARY | 2024-12-15 13:47 | XMS_ITS | Encounter Summary ---
Author Organization [facility] Address [address] [place] [address] Phone Care Team Providers Care Band Saw Operator Name Role Phone Kun Oconnor MD Primary Care Provider + [phone] Chace Newman DO Primary Care Provider [phone] Srini Smith MD Unavailable [phone] Courtney Pitt NP Primary Care Provider [phone] Encounter Details Date Type Department Care Team (Latest Contact Info) Description 07/18/2019 Orders Only [facility] Scanning, Provider Social History Tobacco Use Types Packs/Day Years Used Date Smoking Tobacco: Never Smokeless Tobacco: Never Sex and Gender Information Value Date Recorded Sex Assigned at Not on file 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 Gender Identity Not on file Sexual Orientation [...] on filedocumented in this encounter Care Teams Band Saw Operator Relationship Specialty Start Date End Date Kun Oconnor MD [address] [place] [address] PCP - General 12/29/16 04/03/22 Chace Newman DO [address] [place], [place] [id number] PCP - General Family Medicine 04/04/22 09/16/24 Courtney Pitt NP [address] [facility] [address] [place], [place] [id number] PCP - General Internal Medicine 09/17/24 Srini Smith MD [address] [facility], [facility] [address] [place] [address] Medical Oncologist/Fire Extinguisher Repairer Medical Oncology 04/07/22 documented as of this encounter
--- OUTSIDE RECORDS SUMMARY | 2024-12-15 13:47 | XMS_ITS ---
Author Organization [facility] Address [address] [facility] [place] [address] Care Team Providers Care Contracts Advisor Name Role Phone Srini Smith MD Unavailable [phone] Courtney Pitt NP Primary Care Provider [phone] Active Problems Problem Noted Date Diagnosed Date Pneumonia 04/05/2022 Assessment & Plan (04/06/2022 12:28 PM STAPLE SHEAR OPERATOR): Pt presented with productive cough and [...] 04/05/2022 Assessment & Plan (04/05/2022 7:59 AM STAPLE SHEAR OPERATOR): - Home losartan and atenolol Elevated HDL 04/05/2022 Assessment & Plan (04/05/2022 8:01 AM STAPLE SHEAR OPERATOR): - Home atorvastatin Diabetes mellitus type 2 without retinopathy Assessment & Plan (10/01/2019 9:02 AM CDT): -- No background diabetic retinopathy ([facility]STER) -- No neovascularization of the disc (NVD), [...] (CMS/HCC) Assessment & Plan (04/06/2022 12:29 PM STAPLE SHEAR OPERATOR): - s/p Rituxan x4 () - Now with PD with likely left kidney involvement - BR x6C held in setting of infection, restart once infection resolved - Follow up with Dr Smith outpt Type 2 diabetes mellitus without complication Encounter for colonoscopy du e to history of adenomatous colonic polyps 04/16/2018 Overview (04/16/2018): Added automatically from request for surgery [id number] Ganglion of hand 01/16/2017 Current Treatment and [...] Smith MD 6 of 6 cycles started [id number] - [facility] - Lymphoma - [facility] - RiTUXimab [...] 04/06/2022 Assessment & Plan (04/06/2022 12:29 PM STAPLE SHEAR OPERATOR): SpO2 down to 88%. On 2L O2. Likely 2/2 pna - Manage pna as elsewhere - Clinically improving with antibiotics. Wean O2 as tolerated Hyponatremia 04/05/2022 04/06/2022 Assessment & Plan (04/05/2022 1:09 PM STAPLE SHEAR OPERATOR): Na 1344 -> 139. 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/03/2022 023 Assessment & Plan (04/05/2022 7:53 AM STAPLE SHEAR OPERATOR): - s/p Rituxan x4 ([id number]) - Now with PD with likely left kidney involvement - BR x6C held in setting of infection, restart once infection resolved - Follows with Dr Smith
--- OUTSIDE RECORDS SUMMARY | 2024-12-15 13:47 | XMS_ITS | Encounter Summary ---
Author Organization [facility] Address [address] [place] [address] Phone Care Team Providers Care Family Support Coordinator Name Role Phone Kun Oconnor MD Primary Care Provider + [phone] Chace Newman DO Primary Care Provider [phone] Srini Smith MD Unavailable [phone] Courtney Pitt NP Primary Care Provider [phone] Encounter Details Date Type Department Care Team (Latest Contact Info) Description 07/21/2019 Orders Only [facility] Scanning, Provider Social History Tobacco Use Types Packs/Day Years Used Date Smoking Tobacco: Never Smokeless Tobacco: Never Sex and Gender Information Value Date Recorded Sex Assigned at Not on file 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 Gender Identity Not on file Sexual Orientation [...] on filedocumented in this encounter Care Teams Family Support Coordinator Relationship Specialty Start Date End Date Kun Oconnor MD [address] [place] [address] PCP - General 12/29/16 04/03/22 Chace Newman DO [address] [place] [address] PCP - General Family Medicine 04/04/22 09/16/24 Courtney Pitt NP [address] [facility] [address] [place] [address] PCP - General Internal Medicine 09/17/24 Srini Smith MD [address] [facility], [facility] [address] [place] [address] Medical Oncologist/Greens Cutter Medical Oncology 04/07/22 documented as of this encounter
--- OUTSIDE RECORDS SUMMARY | 2024-12-15 13:47 | XMS_ITS | Clinical Summary ---
Author Organization [facility] Address [address] [facility] [place] Rocha [address] Care Team Providers Care Cafe Manager Name Role Phone Srini Smith MD Unavailable [phone] Courtney Pitt NP Primary Care Provider [phone] Allergies Active Allergy Reactions Criticality Noted Date Comments Rituximab Other (See comments) Low 03/19/2019 Sore throat, itching Medications atenolol (TENORMIN) 50 mg tablet 03/30/19 19 Active atorvastatin (LIPITOR) 10 mg tablet 03/06/19 19 Active glimepiride (AMARYL) 2 mg tabletIndicati ons:type 2 diabetes mellitus TAKE 1/2 T PO D WITH BREAKFAST AND 1 T PO QHS WITH DINNER 3 04/08/19 19 Active losartan (COZAAR) 50 mg tablet 04/05/19 19 Active metFORMIN (GLUCOPHAGE) 500 mg tabletIndicati ons:type 2 diabetes mellitus Take 1 tablet (500 mg total) by mouth 2 (two) times a day with meals Take 2 tabs BID Active pioglitazone (ACTOS) 45 mg tabletIndicati ons:type 2 diabetes mellitus Take 1 tablet (45 mg total) by mouth daily Active traZODone (DESYREL) 50 mg tablet 05/02/19 23 Active escitalopram (LEXAPRO) 10 mg tablet Take 1 tablet (10 mg total) by mouth daily 09/02/19 25 Active mirtazapine (REMERON) 15 mg tabletIndicati ons:Weight loss TAKE ONE TABLET BY MOUTH NIGHTLY 90 tablet 3 10/06/20 25 Active mirtazapine (REMERON) 15 mg tabletIndicati ons:Weight loss Take 1 tablet (15 mg total) by mouth nightly 90 tablet 2 04/04/19 24 025 Discontinued Active Problems Problem Noted Date Diagnosed Date Pneumonia 04/05/2022 Assessment & Plan (04/06/2022 12:28 PM FILLING HAULER): Pt presented with productive cough and malaise. [...] 04/05/2022 Assessment & Plan (04/05/2022 7:59 AM FILLING HAULER): - Home losartan and atenolol Elevated HDL 04/05/2022 Assessment & Plan (04/05/2022 8:01 AM FILLING HAULER): - Home atorvastatin Diabetes mellitus type 2 without retinopathy Assessment & Plan (10/01/2019 9:02 AM CDT): -- No background diabetic retinopathy (HOSPITAL SCIENTIST) -- No neovascularization of the disc [...] (CMS/HCC) Assessment & Plan (04/06/2022 12:29 PM FILLING HAULER): - s/p Rituxan x4 () - Now with PD with likely left kidney involvement - BR x6C held in setting of infection, restart once infection resolved - Follow up with Dr Smith outpt Type 2 diabetes mellitus without complication Encounter for colonoscopy du e to history of adenomatous colonic polyps 04/16/2018 Overview (04/16/2018): Added automatically from request for surgery [id number] Ganglion of hand 01/16/2017 Resolved Problems Problem Noted Date Diagnosed Date Resolved Date Acute respiratory failure with hypoxia 04/05/2022 04/06/2022 Assessment & Plan (04/06/2022 12:29 PM FILLING HAULER): SpO2 down to 88%. On 2L O2. Likely 2/2 pna - Manage pna as elsewhere - Clinically improving with antibiotics. Wean O2 as tolerated Hyponatremia 04/05/2022 04/06/2022 Assessment & Plan (04/05/2022 1:09 PM FILLING HAULER): Na 1344 -> 139. 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/03/2022 023 Assessment & Plan (04/05/2022 7:53 AM FILLING HAULER): - s/p Rituxan x4 () - Now with PD with likely left kidney involvement - BR x6C held in setting of infection, restart once infection resolved - Follows with Dr Smith Encounters Date Type Department Care Team Description 12/02/2024 Telephone [facility] [address] [address] Cherelle Oakley MA Chart Review (Med adherence) 11/10/2024 ACO Medication Access [address] [address] Carie Jonas CPhT 10/06/[address] [address] Mary Riley MA Chart Review ([facility] med rec) 09/17/2024 10:30 AM CDT [facility] [address] [phone] Annie Knight NP 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 6 [place] [address] Ace marginal zone B-cell lymphoma (CMS/HCC) ([facility]) 09/17/2024 Documentation [facility] Medicine Oncology [facility] [address] [phone] Jessica Luong, RN 09/17/2024 Documentation [facility] Social Work [address] [place] [phone] Petar Sweeney LCSW 09/15/2024 ACO Medication Access [facility] Accountable Care Organization [address] [place] [address] Carie Jonas, business banker from Last 3 Months Immunizations Immunization Administration [...] on file Legal Sex Male 7:49 AM FILLING HAULER Gender Identity Not on file Sexual Orientation [...] 1945 DTaP/Tdap/Td Vaccine (1 - Tdap) 10/13/1956 Well Visit 65+ 10/13/2012 Dilated Eye Exam 05/16/2019 05/15/2018 Hemoglobin A1C 10/02/2022 04/04/2022, 12/17/2019 Depression Screening 04/03/2023 04/03/2022 Lipid Panel 04/04/2023 04/04/2022, 09/02, 12/17/2019 Fall Risk Assessment 04/23/2024 04/23/2023 Covid-19 Vaccine (2024-04 6 season) 2024 12/08/2021, 06/25/2021, 11/30/2020, Additional history exists Influenza Vaccine (#1) 2024 , 12/01/2022, 12/01/2022, Additional history exists eGFR 09/17/2025 09/17/2024, 04/0 04/2024, 02/06/2024, Additional history exists Zoster Vaccine Completed 12/17/2018, 11/03, 10/18/2018, Additional history exists Hepatitis B Screening Completed 01/22/2019 Hepatitis C Screening Completed 01/22/2019 Pneumococcal vaccine [...] lymphoma (CMS/HCC) (HCC) COLONOSCOPY 04/23/2023 2:53 PM FILLING HAULER HEMOGLOBIN A1C STAT 04/04/2022 1:00 AM FILLING HAULER LIPID PANEL STAT 04/04/2022 1:00 AM FILLING HAULER HEPATITIS C ANTIBODY Routine 01/22/2019 2:22 PM FILLING HAULER Ace marginal zone B-cell lymphoma (HCC) from [...] MD LAB BLOOD ORDERABLES Final R esult [facility] [place] [address] * (ABNORMAL) Differential, auto (09/17/2024 9:43 AM CDT) Neutrophil abs 3.68 1.50 - 6.50 K/cumm Comment:Testing performed by : [facility], [address] [place], [place] [phone] Lymphocyte abs 0.48(L) 0.80 - 3.30 K/cumm [facility] Comment:Testing performed by : [facility], [address] [place] [address] Monocyte abs 0.51 0.20 - 0.80 K/cumm KATHARINE RIOS Comment:Testing performed by : [facility], [address] [place] [address] Eosinophil abs 0.09 0.00 - 0.50 K/cumm [facility] Comment:Testing performed by : [facility], [address] [place] [address] Basophil abs 0.03 0.00 - 0.10 K/cumm [facility] Comment:Testing performed by : [facility], [address] [place] [address] Neutrophil pct 77.0 % CERSANDRA RIOS Comment: Interpretive Data Percent cell count reference ranges are not reported, since discordance with absolute values may lead to misinterpretation of CBC data. Current Interpretive Data was last revised on 2017. Testing performed by: [facility], [address] [place] [phone] Lymphocyte pct 10.0 % KATHARINE RIOS Comment: Interpretive Data Percent cell count reference ranges are not reported, since discordance with absolute values may lead to misinterpretation of CBC data. Current Interpretive Data was last revised on 2017. Testing performed by: [facility], [address] [place] [phone] Monocyte pct 10.6 % KATHARINE RIOS Comment: Interpretive Data Percent cell count reference ranges are not reported, since discordance with absolute values may lead to misinterpretation of CBC data. Current Interpretive Data was last revised on 2017. Testing performed by: [facility], [address] [place] [phone] Eosinophil pct 1.9 % KATHARINE RIOS Comment: Interpretive Data Percent cell count reference ranges are not reported, since discordance with absolute values may lead to misinterpretation of CBC data. Current Interpretive Data was last revised on 2017. Testing performed by: [facility], [address] [place] [phone] Basophil pct 0.6 % KATHARINE RIOS Comment: Interpretive Data Percent cell count reference ranges are not reported, since discordance with absolute values may lead to misinterpretation of CBC data. Current Interpretive Data was last revised on 2017. Testing performed by: [facility], [address] [place] [phone] Blood 09/17/2024 9:43 AM CDT 09/17/2024 9:57 AM CDT us Srini Smith MD LAB BLOOD ORDERABLES Final R esult [facility] [place] [address] * (ABNORMAL) CBC with auto differential (09/17/2024 9:43 AM CDT) WBC 4.78 3.80 - 9.90 K/cumm Comment:Testing performed by : [facility], [address] [place] [address] Hgb 13.1 13.0 - 17.5 g/dL CERNER BJ Comment:Testing performed by : [facility], [address] [place] [address] Hct 38.7(L) 38.9 - 50.3 % CERNER BJ Comment:Testing performed by : [facility], [address] [place] [address] Plt 252 150 - 400 K/cumm CERNER BJ Comment:Testing performed by : [facility], [address] [place] [address] MPV 7.7 6.8 - 10.4 fL CERNER BJ Comment:Testing performed by : [facility], [address] [place] [address] RBC 4.02(L) 4.30 - 5.80 M/cumm CERNER BJ Comment:Testing performed by : [facility], [address] [place] [address] MCV 96.1 81.3 - 96.4 fL CERNER BJ Comment:Testing performed by : [facility], [address] [place] [address] MCH 32.5 27.1 - 33.3 pg CERNER BJ Comment:Testing performed by : [facility], [address] [place] [address] MCHC 33.8 32.3 - 35.7 g/dL CERNER BJ Comment:Testing performed by : [facility], [address] [place] [address] RDW CV 14.8 11.1 - 14.9 % CERNER BJ Comment:Testing performed by : [facility], [address] [place] [address] NRBC abs 0.00 0.00 - 0.01 K/cumm [facility] Comment:Testing performed by : [facility], [address] [place] [phone] Blood 09/17/2024 9:43 AM CDT 09/17/2024 9:57 AM CDT Srini Smith MD LAB BLOOD ORDERABLES Final R esult Performing Organization Address City/[facility] Co de Phone Number [facility] [place] [address] * Lactate dehydrogenase (LD) (09/17/2024 9:43 AM CDT) Lactate dehydrogenase (LDH) 193 100 - 250 Units/L Blood 09/17/2024 9:43 AM CDT 09/17/2024 9:59 AM CDT Srini Smith MD LAB BLOOD ORDERABLES Final R esult Performing Organization Address [facility] [place] [address] * Beta 2 microglobulin, serum (09/17/2024 9:43 AM CDT) Beta 2 microglobulin, bld 2.10 1.00 - 2.50 mg/L Comment: Interpretive Data The Michael Beta-2 microglobulin assay procedure was used. Results from different manufacturers or methods may not be comparable. Serial testing should be performed using the same method. Blood 09/17/2024 9:43 AM CDT 09/17/2024 10:29 AM CDT Srini Smith MD LAB BLOOD ORDERABLES Final R esult Performing Organization Address [facility] Co de Phone Number [facility] [place] [address] * (ABNORMAL) Comprehensive metabolic panel (09/17/2024 9:43 AM CDT) Sodium 141 135 - 145 mmol/L Potassium, pl 4.0 3.3 - 4.9 mmol/L [facility] Chloride 99 97 - 110 mmol/L [facility] CO2 33(H) 22 - 32 mmol/L [facility] Anion gap 9 2 - 15 mmol/L [facility] BUN 9 6 - 25 mg/dL [facility] Creatinine 0.76(L) 0.80 - 1.30 mg/dL [facility] Glucose 192 70 - 199 mg/dL [facility] Comment: Interpretive Data Fasting glucose [...] Calcium 9.3 8.5 - 10.3 mg/dL [facility] Bilirubin, total 0.7 0.1 - 1.2 mg/dL [facility] Protein, pl 6.5 6.5 - 8.5 g/dL [facility] Albumin 4.3 3.5 - 5.0 g/dL [facility] Alk phos 91 40 - 130 Units/L [facility] ALT 22 7 - 55 Units/L [facility] AST 20 10 - 50 Units/L [facility] Blood 09/17/2024 9:43 AM CDT 09/17/2024 9:59 AM CDT us Srini Smith MD LAB BLOOD ORDERABLES Final R esult [facility] [place] [address] * Colonoscopy (04/23/2023 2:53 PM FILLING HAULER) Anatomical Region Laterality Modality Other Narrative Procedure [...] scope was passed under direct vision.The CF [id number] endoscope was introduced through the anus [...] On: 04/23/2023 2:53 PM Recognized by the [employer] for promoting quality in endoscopy us Radha Shaw MD ENDOSCOPY PROCEDURES Final Res ult * (ABNORMAL) Hemoglobin A1c (04/04/2022 1:00 AM FILLING HAULER) Hgb A1C 7.9(H) 4.0 - 5.6 % [facility] Estimated Average Glucose 180 mg/dL [facility] Comment: The ADA recommends reporting an estimated Average Glucose (eAG) with all Hemoglobin A1c results using the equation derived from a study of 507 normal and diabetic adults. Minority populations were underrepresented and children were not included. (Diabetes Care 2020; 43(S1): S66-S76). The eAG is not equivalent to a fasting glucose. Blood 04/04/2022 1:00 AM FILLING HAULER 04/04/2022 1:45 AM FILLING HAULER Srini Smith MD LAB BLOOD ORDERABLES Final R esult [facility] [place] [address] * Lipid panel (04/04/2022 1:00 AM FILLING HAULER) Cholesterol 94 30 - 199 mg/dL [facility] Comment: Interpretive Data Ages < or [...] revised on 2017. Triglycerides 51 <=149 mg/dL [facility] Comment: Interpretive Data Ages < or = [...] revised on 2017. HDL 53 >=40 mg/dL [facility] Comment: Interpretive Data Ages < or = [...] on 2017. LDL, calculated 31 <=129 mg/dL [facility] Comment: Interpretive Data Ages < or = [...] revised on 2017. Non-HDL Cholesterol 41 mg/dL [facility] Comment: Interpretive Data Ages < or = [...] revised on 2017. Chol/HDL ratio 2 [facility] Blood 04/04/2022 1:00 AM FILLING HAULER 04/04/2022 1:42 AM FILLING HAULER us Srini Smith MD LAB BLOOD ORDERABLES Final R esult Performing Organization Address [facility] Co de Phone Number [facility] [place] [address] * Hepatitis C antibody (01/22/2019 2:22 PM FILLING HAULER) Hep C Ab Nonreactive Nonreactive [facility] Comment: Interpretive Data Positive results should be confirmed by a molecular method. If positive, a second separately collected sample should be submitted for Hepatitis C Virus (HCV) RNA Detection and Quantitation by Real-Time Reverse Police Judge-PCR (RT-PCR). Current interpretive data was last revised on 2016. Blood specimen (specimen) 01/22/2019 2:22 PM FILLING HAULER 01/22/2019 2:35 PM FILLING HAULER us Annie donald NP LAB MICROBIOLOGY - GENERAL ORDERABLES Edited Result - Final Performing Organization Address [facility] Co de Phone Number [facility] [place] [address] from Last 3 Months or Most Recently Relevant to Health Maintenance [place] [address] [facility] MEDICARE ADVANTAGE [facility] MEDICARE ADVANTAGE Advance Directives For more information, please contact: [phone] * Full Code (Latest Code Status on File) Date Activated Date Inactivated Comments 04/23/2023 3:07 PM 04/23/2023 8:55 PM * Full Code Date Activated Date Inactivated Comments 04/03/2022 11:40 PM 04/06/2022 9:40 PM * Full Code Date Activated Date Inactivated Comments 04/26/2018 6:57 AM 04/26/2018 1:31 PM Care Teams Cafe Manager Relationship Specialty Start Date End Date Courtney Pitt NP [address] [place] [address] [address] [place] [address] PCP - General Internal Medicine 09/17/24 Srini Smith MD [address] [facility] DIV IM MEDICAL ONCOLOGY, [facility] [address]A, [address], [address] [place] [address] Medical Oncologist/Serology Technician Medical Oncology 04/07/22
--- OUTSIDE RECORDS SUMMARY | 2024-12-15 13:47 | XMS_ITS | Encounter Summary ---
Author Organization [facility] Address [address] [place] [address] Phone Care Team Providers Care Meat Clerk Name Role Phone Kun Oconnor MD Primary Care Provider [phone] Chace Newman DO Primary Care Provider [phone] Srini Smith MD Unavailable [phone] Courtney Pitt NP Primary Care Provider [phone] Encounter Details Date Type Department Care Team (Latest Contact Info) Description 07/19/2019 Orders Only [facility] Scanning, Provider Social History Tobacco Use Types Packs/Day Years Used Date Smoking Tobacco: Never Smokeless Tobacco: Never Sex and Gender Information Value Date Recorded Sex Assigned at Not on file Legal Sex Male 7:49 AM 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 MEDICAL ONCOLOGY, [facility] [address]A, 7B, [address] [place] [address] Medical Oncologist/Cloth Cutting Inspector Medical Oncology 04/07/22 documented as of this encounter
--- OUTSIDE RECORDS SUMMARY | 2024-12-15 13:47 | XMS_ITS | Clinical Summary ---
Author Organization [facility] Address [address] [address] Care Team Providers Care Ophthalmic Medical Technician Name Role Phone Unavailable Primary Care Provider Unavailabl e Source Comments [facility],non-owned Affiliates and Associated Physician Practices is amultiple site organization consisting of ambulatory clinics and hospital sitesin [place], [place], [place] and [place]. This disclosure is being madepursuant to the Care Everywhere program and may not contain all information available regarding this patient. Last updated 17.[facility] Social History Tobacco Use Types Packs/Day Years [...] yrs (1 - 1-dose 75+ series) 10/13/2022 DEPRESSION SCREENING 03/05/2024 COVID-19 VACCINE ( - 2023-2 5 season) 2024 INFLUENZA VACCINE (#1) 2024 HEPATITIS B VACCINE [...]
--- OUTSIDE RECORDS SUMMARY | 2024-12-15 13:47 | XMS_ITS | Encounter Summary ---
Author Organization [facility] Address [address] [facility] [place] [address] Care Team Providers Care Vacuum Conditioner Operator Name Role Phone Unavailable Primary Care Provider Unavailabl e Encounter Details Date Type Department Care Team (Late st Contact Info) Description 01/01/2019 Lab Requisition [facility] Care Pathology Lab [address] [place] [address] Mainor Zavaleta MD [address] [place] [address] Enlarged lymph nodes, unspecified Social History [...] AM CDT) Case Report Flow Cytometry Case: [id number] Authorizing Provider: Mainor Zavaleta MD Collected: 01/01/2019 08:24 AM Ordering Location: [facility] Care Pathology Lab Received: 01/01/2019 12:16 PM Pathologist: Omkar Houston MD Specimen: Lymph Node, ANNA PORTAL AORTIC LYMPH NODE 9 11:50 AM CDT [facility] Final Diagnosis Lymph node, periportal aortic, flow cytometric immunophenotypic analysis: - 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 - See interpretation. 9 11:50 AM [facility] PATHOLOGY LAB at 1150 CDT Flow [...] flow cytometry specimen is reviewed for quality control inspector heading purposes. Overall, the periportal aortic lymph node shows an evidence of involvement by CD5-negative, [id number] mature B-cell lymphoma. Correlation with clinical findings and concurrent tissue biopsy ([id number]) is required. 9 11:50 AM [facility] PATHOLOGY [facility] Flow Cytometry Results Differential Result Comment Flow Cell Count /uL 114,000 Total Viability % 79.0 Lymphocytes % 98 Dim CD45 Region % 1 Monocytes % 0 Granulocytes % 1 9 11:50 AM [facility] Reason for test Enlarged lymph nodes , unspecified 9 11:50 AM [facility] Client Specimen ID # [id number] 9 11:50 AM [facility] Number of markers 16 were performed. A-2 Flow CD3 A-4 Flow CD10 A-6 Flow CD20 A-7 Flow CD23 A-12 Flow CD2 A-13 Flow CD4 A-16 Flow CD1a A-3 Flow CD5 A-5 Flow CD19 A-8 Flow CD34 A-9 Flow CD45 A-14 Flow CD7 A-15 Flow CD8 A-17 Flow CD30 A-10 [place]+CD19+ A-11 Lambda+CD19+ 9 11:50 AM [facility] PATH[facility] LAB Disclaimer Test performed at [facility], [address] [place] [address], [address]. *The established laboratory minimum viability is 70%. [...] complexity clinical testing. 9 11:50 AM CDT [facility] PATHOLOGY LAB Embedded Images 9 11:50 AM CDT [facility] PATHOLOGY LAB Pathology/Cytolo gy ENTIRE LYMPH NODE / Unknown 01/01/2019 8:24 AM CDT 01/01/2019 12:16 PM CDT Mainor Zavaleta MD LAB - PATHOLOGY/CYTOLOGY ORDER [place] Final Result [facility] PATHOLOGY LAB [address] [phone] documented in this encounter Visit Diagnoses Diagnosis Enlarged lymph nodes, unspecified documented in this encounter
--- OUTSIDE RECORDS SUMMARY | 2024-12-15 13:47 | XMS_ITS | Encounter Summary ---
Author Organization [facility] Address [address] [place] [address] Care Team Providers Care [employer] Name Role Phone Unavailable Primary Care Provider Unavailabl e Encounter Details Date Type Department Care Team (Late st Contact Info) Description 01/03/2019 Lab Requisition [facility] [address] [place] [address] Mainor Zavaleta MD [address] [place] [id number] Social History Tobacco Use Types Packs/Day [...] CDT) Case Report Surgical Pathology Report Case: [id number] Authorizing Provider: Mainor Zavaleta MD Collected: 01/01/2019 09:25 AM Ordering Location: [facility] Received: 01/03/2019 09:41 AM Pathologist: Lu King MD Specimen: Lymph Node Biopsy, [id number] 01/06/2019 11:46 AM [facility] Final Diagnosis Lymph nodes, periportal aortic, excision: - Marginal zone lymphoma. - See description. 01/06/2019 11:46 AM [facility] at [address] [facility] [employer] Microscopic Description and Comment Review of the [...] are performed on block B3 in the [facility] Department of Pathology, with appropriately reactive controls, and demonstrate the followings: CD20 and BCL-2 are positive in the neoplastic cells. CD3, CD5, CD10, CD23, CD43, cyclin D1, and MUM-1 are negative in the neoplastic cells. CD23 shows a few residual follicular dendritic cell meshworks that are colonized by neoplastic cells. Concurrent lymph node flow cytometry ([id number]) detects a CD5-negative, [id number]-[id number] mature B-cell lymphoma. 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 Correlation with clinical findings and relevant cytogenetic/molecular testing is required. KR/MM 01/06/2019 11:46 AM [facility] Clinical History Lymphadenopathy. 01/06/2019 11:46 AM [facility] Materials Received Received from [facility], [place], [place] are 5 slides and 5 blocks labeled Konrad Nieto and [id number]. All original materials are returned along with a copy of our report. 01/06/2019 11:46 AM [facility] Disclaimer The performance characteristics of all immunohistochemical and indirect immunofluorescence stains (if any) cited in this report were determined by the Histopathology Laboratory of [facility]. Some of these tests were [...] interpretation of this case is performed by [facility] at [facility], [address] [place] [id number]. 01/06/2019 11:46 AM [facility] Embedded Images 01/06/2019 11:46 AM [facility] Pathology/Cytolo gy BIOPSY OF LYMPH NODE / Unknown 01/01/2019 9:25 AM CDT 01/03/2019 9:41 AM CDT Mainor Zavaleta MD LAB - PATHOLOGY/CYTOLOGY ORDER ROMAIN Final Result [facility] [address] [place] [address] documented in this encounter Visit Diagnoses Not on filedocumented in this encounter
--- NOTE | 2024-12-15 15:08 | ED.GIBLEED ---
HPI - GI Bleed General Chief complaint: GI Bleed <CARMEN Vargas Last Filed: 12/15/24 15:16> Stated complaint: rectal bleeding <CARMEN Vargas Last Filed: 12/15/24 15:16> Time Seen by Provider: 12/15/24 15:08 <CARMEN Vargas Last Filed: 12/15/24 15:16> Focused HPI: Patient is a 79 y/o male who presents to the ED with c/o rectal bleeding. Patient reports he had a formed bowel movement after taking a shower this morning and noticed bright red blood afterwards. He is unsure if it is mixed in with the stool. Has previous hx of hemorrhoids, but denies issues with this currently. He is not on any anticoagulation. Daughter at bedside reports that patient has had frequent bowel movements and occasional bowel incontinence over the past week which is new for him. He has been all soft diet due to no longer having his dentures. Denies rectal pain, abdominal pain, dizziness, lightheadedness. GENERAL: Elderly, frail/thin, and in no acute distress. HEAD: Normocephalic, atraumatic. CHEST: Clear to auscultation. ?No respiratory distress. HEART: Regular rate and rhythm.? NEURO: ?Alert and oriented x3. Patient screened in triage and initial orders placed.? ?Additional care and disposition to be based upon?diagnostic testing and treatment. <CARMEN Vargas Last Filed: 12/15/24 15:16> Source: patient and family <CARMEN Vargas Last Filed: 12/15/24 15:16> Mode of arrival: ambulatory <CARMEN Vargas Last Filed: 12/15/24 15:16> Limitations: no limitations <CARMEN Vargas Last Filed: 12/15/24 15:16> History of Present Illness HPI Narrative: I agree with the HPI above. <Stephanie Dejesus APRN - Last Filed: 12/15/24 19:46> Related Data Home medications: Home Medications ?Medication ?Instructions ?Recorded ?Confirmed ?Last Taken ?Type blood sugar diagnostic #10 ea 03/26/19 12/15/24 Unknown History lancets 33 gauge (OneTouch Delica #100 ea 03/26/19 12/15/24 Unknown History Lancets) mirtazapine 15 mg tablet 15 mg PO HS 12/15/24 12/15/24 12/14/24 History <Sherri Bell PA-C - Last Filed: 12/15/24 15:16> Allergies/Adverse reactions: Allergies Allergy/AdvReac Type Severity Reaction Status Date / Time No Known Allergies Allergy Verified 12/15/24 12:50 <Sherri Bell PA-C - Last Filed: 12/15/24 15:16> Review of Systems Review of Systems: All systems reviewed & are unremarkable except as noted in HPI and below <Stephanie Dejesus APRN - Last Filed: 12/15/24 19:46> [facility] Past Medical History Medical History: Medical History COPD (chronic obstructive pulmonary disease) CHF (congestive heart failure) Vascular dementia Cerebral infarction Incisional hernia s/p repair, 2019 Hemorrhoids GI bleed due to NSAIDs Acute blood loss anemia Duodenal ulcer (~2019) Colon polyps Benign prostatic hyperplasia Dyslipidemia Essential hypertension Marginal zone lymphoma Treated with chemotherapy at [facility] in [place] per Dr. Gresham. Chronic anemia Ganglion cyst of joint of finger of left hand Type 2 diabetes mellitus without complications <CARMEN Vargas Last Filed: 12/15/24 15:16> Surgical History Surgical History: Surgical History History of incisional hernia repair laparoscopic repair of multiple incisional hernia with 25x20 cm Symbotex mesh 09/17/19 History of transurethral resection of prostate Wound dehiscence, traumatic injury repair (~01/2019) Repair of abdominal wound fascial dehiscence with evisceration. Status post exploratory laparotomy (~12/2018) With excisional biopsy of periaortic and periportal lymphadenopathy, histology showing marginal zone lymphoma. <Sherri Bell PA-C - Last Filed: 12/15/24 15:16> Family History Family History: Family History Father Acute myocardial infarction Sibling Cerebrovascular accident Family history of malignant neoplasm of brain Mother Family history of congestive heart failure Sibling Lung cancer <Sherri Bell PA-C - Last Filed: 12/15/24 15:16> Social History Social History: Social History Social History: The patient is and lives in his own home in [place]. He has 3 biological children and 2 step children. 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 He is a lifelong nonsmoker and denies alcohol and drug abuse. He designates his daughter, Brisa Brunner, as his surrogate decision maker and he wishes to be a full code. Smoking packs per day: 0.5 Smoking cigarettes per day: 10.0 Years smoked: 50 Smoking pack-years: 25.00 Smoking status: Current every day smoker Tobacco type: cigarettes Second hand tobacco smoke exposure: Yes Alcohol intake: never Substance use: never Substance use type: does not use Do You Feel Safe in your Home?: Yes Lack of Transportation: No Lack of Food: Never True Current Housing: I Have Housing Concerned About Future Housing: No Difficulty Paying Gas/Electric Bills: No Difficulty Paying for Meds: No Currently Unemployed: No Education: Master's Degree or Higher Difficulty w/ Childcare or Family Care: No Living arrangements: alone Occupation/Education: occupation Additional occupation/education comments: 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 [employer] Gender identity (if verbalized by the patient): Male Spiritual care concerns: No Agree to blood products: Yes <Sherri Bell PA-C - Last Filed: 12/15/24 15:16> Exam Narrative: GENERAL: Well appearing, well-nourished, non-toxic, in no acute distress. HEAD: Normocephalic, atraumatic. NECK: Supple. No adenopathy, no masses. RESPIRATORY: Airway patent, respirations nonlabored. Clear to auscultation bilaterally, no rales, rhonchi, wheezing. CARDIOVASCULAR: Regular rate and rhythm without murmurs, rubs, or gallops. Peripheral pulses 2+ and equal bilaterally. ABDOMINAL: Soft, nontender, nondistended, no hepatosplenomegaly. Normoactive BS. MUSCULOSKELETAL: Moves all extremities. Strength/ROM intact without gross deformities. SKIN: Warm, dry, normal color. No rashes. NEURO: A&O X3. Speech clear. Cranial nerves II-XII intact. No ataxic movements. PSYCHIATRIC: Appropriate mood and affect. Normal interaction. : + hemoccult, palpable internal hemorrhoid on digital exam <Stephanie Dejesus APRN - Last Filed: 12/15/24 19:46> Course ASSET PROTECTION SPECIALIST/PA Physician Supervision This visit was performed by both a physician and an APC. I performed all aspects of the MDM as documented. <Levar Tejeda MD - Last Filed: 12/15/24 21:54> Vital Signs Vital signs: Vital Signs Temperature 98.2 F 12/15/24 13:03 Pulse Rate 71 12/15/24 13:03 Respiratory Rate 16 12/15/24 13:03 Blood Pressure 161/87 H 12/15/24 13:03 Pulse Oximetry 95 12/15/24 13:03 Oxygen Delivery Room Air 12/15/24 13:03 Temperature 98.2 F 12/15/24 20:24 Pulse Rate 78 12/15/24 20:24 Respiratory Rate 20 12/15/24 20:24 Blood Pressure 169/92 H 12/15/24 20:24 Pulse Oximetry 97 12/15/24 20:24 Oxygen Delivery Room Air 12/15/24 18:04 <Sherri Bell PA-C - Last Filed: 12/15/24 15:16> Vital Signs Temperature 98.2 F 12/15/24 13:03 Pulse Rate 71 12/15/24 13:03 Respiratory Rate 16 12/15/24 13:03 Blood Pressure 161/87 H 12/15/24 13:03 Pulse Oximetry 95 12/15/24 13:03 Oxygen Delivery Room Air 12/15/24 13:03 Temperature 98.2 F 12/15/24 20:24 Pulse Rate 78 12/15/24 20:24 Respiratory Rate 20 12/15/24 20:24 Blood Pressure 169/92 H 12/15/24 20:24 Pulse Oximetry 97 12/15/24 20:24 Oxygen Delivery Room Air 12/15/24 18:04 <Stephanie Dejesus APRN - Last Filed: 12/15/24 19:46> Vital Signs Temperature 98.2 F 12/15/24 13:03 Pulse Rate 71 12/15/24 13:03 Respiratory Rate 16 12/15/24 13:03 Blood Pressure 161/87 H 12/15/24 13:03 Pulse Oximetry 95 12/15/24 13:03 Oxygen Delivery Room Air 12/15/24 13:03 Temperature 98.2 F 12/15/24 20:24 Pulse Rate 78 12/15/24 20:24 Respiratory Rate 20 12/15/24 20:24 Blood Pressure 169/92 H 12/15/24 20:24 Pulse Oximetry 97 12/15/24 20:24 Oxygen Delivery Room Air 12/15/24 18:04 <Levar Tejeda MD - Last Filed: 12/15/24 21:54> MDM - GI Bleed MDM Narrative Medical decision making narrative: MSE by EDUARDO in triage. <Sherri Bell PA-C - Last Filed: 12/15/24 15:16> MSE by EDUARDO in triage. Patient is a 79 y/o male who presents to the ED with c/o rectal bleeding. Patient reports he had a formed bowel movement after taking a shower this morning and noticed bright red blood afterwards. He is unsure if it is mixed in with the stool. Has previous hx of hemorrhoids, but denies issues with this currently. He is not on any anticoagulation. Daughter at bedside reports that patient has had frequent bowel movements and occasional bowel incontinence over the past week which is new for him. He has been all soft diet due to no longer having his dentures. Denies rectal pain, abdominal pain, dizziness, lightheadedness. Labs Ordered: CBC, CMP, UA, PTT, INR Imaging Ordered: CT abdomen pelvis Medications Ordered: None necessary Results: Pt's CBC indicates a hemoglobin of 10.2, red blood cell count of 3.51, hematocrit 31.4%. Patient's chemistry indicates a sodium of 133, BUN of 40, glucose of 130. His CT scan indicates Soft tissue density in the rectum measuring 3.8 x 3.3 cm may represent stool however mass cannot be entirely excluded. Clinically indicated follow-up colonoscopy can be done for further evaluation. Diagnosis: Rectal bleed Consults: [id number]-Spoke with rubble placer, Dr. Arshad, who reports pt can be admitted for a colonoscopy tomorrow. 1899- Spoke with hospitalist, Erika Torres NP, who is in agreement with plan for admission. She will put in orders for patient's bowel prep. Patient may have clear liquids until midnight, then he will be NPO. MDM: Results of imaging and lab work shared with patient and his family. It was advised patient be admitted to the hospital for further evaluation and treatment. Patient and his family verbalized understanding and are in agreement with plan. <Stephanie Dejesus APRN - Last Filed: 12/15/24 19:46> Differential Diagnosis Differential diagnosis: Likely hemorrhoids, Lower gastrointestinal hemorrhage, hematochezia and anal fissure <Stephanie Dejesus APRN - Last Filed: 12/15/24 19:46> Lab Data Attestation: I reviewed the patient's lab results. <Stephanie Dejesus APRN - Last Filed: 12/15/24 19:46> Result diagrams: 12/15/24 18:36 12/15/24 13:13 <Sherri Bell PA-C - Last Filed: 12/15/24 15:16> Labs: Lab Results 12/15/24 12/15/24 12/15/24 Range/Units 13:13 15:18 18:36 WBC 8.8 (4.5-10.0) K/mm3 RBC 3.51 L (4.6-6.20) M/mm3 Hgb 11.7 L 10.2 L (14.0-18.0) g/dL Hct 36.2 L 31.4 L (42.0-52.0) % MCV 103.1 H (80-100) fl MCH 33.3 (26-34) pg MCHC 32.3 (32-36) g/dl RDW 14.6 H (11.5-14.5) % Plt Count 247 (150-375) k/mm3 MPV 9.1 (7.4-10.4) fl Immature Gran % (Auto) 0.5 (0-0.5) % Neut % (Auto) 84.1 H (45.5-73.1) % Lymph % (Auto) 4.9 L (18.3-44.2) % [place] % (Auto) 7.7 (2.6-8.5) % Eos % (Auto) 2.5 (0-4.4) % Baso % (Auto) 0.3 (0.2-1.2) % Lymph # (Auto) 0.43 L (0.9-3.2) K/mm3 [place] # (Auto) 0.7 H (0.1-0.6) K/mm3 Eos # (Auto) 0.2 (0-0.3) K/mm3 Baso # (Auto) 0.0 (0.0-0.1) K/mm3 Abs Immat Gran (auto) 0.04 H (0.00-0.031) K/mm3 Absolute Neuts (auto) 7.4 H (1.3-6.7) K/mm3 Absolute Nucleated RBC 0.000 (0.0-0.012) K/mm3 Nucleated RBC % 0.0 (0.0-0.2) % PT 12.9 (11.1-14.7) Seconds INR 1.0 APTT 31.0 (22.3-36.8) Seconds Sodium 133 L (137-145) mmol/L Potassium 4.2 (3.4-5.0) mmol/L Chloride 98 (98-107) mmol/L Carbon Dioxide 28 (22-30) mmol/L Anion Gap 7 (4-12) mmol/L BUN 40 H D (9-20) mg/dL Creatinine 0.76 (0.7-1.3) mg/dL Estim Creat Clear Calc 59 ml/min Estimated GFR > 60 (59 - ) Glucose 130 H (65-110) mg/dL Calcium 9.5 (8.4-10.2) mg/dL Total Bilirubin 0.4 (0.2-1.3) mg/dL AST 22 (17-59) U/L ALT 18 (6-50) U/L Alkaline Phosphatase 88 (38-126) U/L Total Protein 6.5 (6.3-8.2) g/dL Albumin 4.1 (3.5-5.1) g/dL Urine Color Yellow (Yellow) Urine Appearance Clear (Clear) Urine pH 5.5 (5.0-9.0) Ur Specific [place] 1.020 (1.001-1.035) Urine Protein Negative (Negative) mg/dL Urine Glucose (UA) Negative (Negative) mg/dL Urine Ketones Negative (Negative) mg/dL Ur Blood (Man) Negative (Negative) Urine Nitrate Negative (Negative) Urine Bilirubin Negative (Negative) Urine Urobilinogen 1.0 (<2.0) mg/dL Leukocyte Esterase Rfl Negative (Negative) MIRZA/UL Blood Type A Positive Antibody Screen Negative <Sherri Bell PA-C - Last Filed: 12/15/24 15:16> Lab Results 12/15/24 12/15/24 12/15/24 Range/Units 13:13 15:18 18:36 WBC 8.8 (4.5-10.0) K/mm3 RBC 3.51 L (4.6-6.20) M/mm3 Hgb 11.7 L 10.2 L (14.0-18.0) g/dL Hct 36.2 L 31.4 L (42.0-52.0) % MCV 103.1 H (80-100) fl MCH 33.3 (26-34) pg MCHC 32.3 (32-36) g/dl RDW 14.6 H (11.5-14.5) % Plt Count 247 (150-375) k/mm3 MPV 9.1 (7.4-10.4) fl Immature Gran % (Auto) 0.5 (0-0.5) % Neut % (Auto) 84.1 H (45.5-73.1) % Lymph % (Auto) 4.9 L (18.3-44.2) % [place] % (Auto) 7.7 (2.6-8.5) % Eos % (Auto) 2.5 (0-4.4) % Baso % (Auto) 0.3 (0.2-1.2) % Lymph # (Auto) 0.43 L (0.9-3.2) K/mm3 [place] # (Auto) 0.7 H (0.1-0.6) K/mm3 Eos # (Auto) 0.2 (0-0.3) K/mm3 Baso # (Auto) 0.0 (0.0-0.1) K/mm3 Abs Immat Gran (auto) 0.04 H (0.00-0.031) K/mm3 Absolute Neuts (auto) 7.4 H (1.3-6.7) K/mm3 Absolute Nucleated RBC 0.000 (0.0-0.012) K/mm3 Nucleated RBC % 0.0 (0.0-0.2) % PT 12.9 (11.1-14.7) Seconds INR 1.0 APTT 31.0 (22.3-36.8) Seconds Sodium 133 L (137-145) mmol/L Potassium 4.2 (3.4-5.0) mmol/L Chloride 98 (98-107) mmol/L Carbon Dioxide 28 (22-30) mmol/L Anion Gap 7 (4-12) mmol/L BUN 40 H D (9-20) mg/dL Creatinine 0.76 (0.7-1.3) mg/dL Estim Creat Clear Calc 59 ml/min Estimated GFR > 60 (59 - ) Glucose 130 H (65-110) mg/dL Calcium 9.5 (8.4-10.2) mg/dL Total Bilirubin 0.4 (0.2-1.3) mg/dL AST 22 (17-59) U/L ALT 18 (6-50) U/L Alkaline Phosphatase 88 (38-126) U/L Total Protein 6.5 (6.3-8.2) g/dL Albumin 4.1 (3.5-5.1) g/dL Urine Color Yellow (Yellow) Urine Appearance Clear (Clear) Urine pH 5.5 (5.0-9.0) Ur Specific [place] 1.020 (1.001-1.035) Urine Protein Negative (Negative) mg/dL Urine Glucose (UA) Negative (Negative) mg/dL Urine Ketones Negative (Negative) mg/dL Ur Blood (Man) Negative (Negative) Urine Nitrate Negative (Negative) Urine Bilirubin Negative (Negative) Urine Urobilinogen 1.0 (<2.0) mg/dL Leukocyte Esterase Rfl Negative (Negative) MIRZA/UL Blood Type A Positive Antibody Screen Negative <Stephanie Dejesus, THROUGH OPERATOR - Last Filed: 12/15/24 19:46> Lab Results 12/15/24 12/15/24 12/15/24 Range/Units 13:13 15:18 18:36 WBC 8.8 (4.5-10.0) K/mm3 RBC 3.51 L (4.6-6.20) M/mm3 Hgb 11.7 L 10.2 L (14.0-18.0) g/dL Hct 36.2 L 31.4 L (42.0-52.0) % MCV 103.1 H (80-100) fl MCH 33.3 (26-34) pg MCHC 32.3 (32-36) g/dl RDW 14.6 H (11.5-14.5) % Plt Count 247 (150-375) k/mm3 MPV 9.1 (7.4-10.4) fl Immature Gran % (Auto) 0.5 (0-0.5) % Neut % (Auto) 84.1 H (45.5-73.1) % Lymph % (Auto) 4.9 L (18.3-44.2) % [place] % (Auto) 7.7 (2.6-8.5) % Eos % (Auto) 2.5 (0-4.4) % Baso % (Auto) 0.3 (0.2-1.2) % Lymph # (Auto) 0.43 L (0.9-3.2) K/mm3 [place] # (Auto) 0.7 H (0.1-0.6) K/mm3 Eos # (Auto) 0.2 (0-0.3) K/mm3 Baso # (Auto) 0.0 (0.0-0.1) K/mm3 Abs Immat Gran (auto) 0.04 H (0.00-0.031) K/mm3 Absolute Neuts (auto) 7.4 H (1.3-6.7) K/mm3 Absolute Nucleated RBC 0.000 (0.0-0.012) K/mm3 Nucleated RBC % 0.0 (0.0-0.2) % PT 12.9 (11.1-14.7) Seconds INR 1.0 APTT 31.0 (22.3-36.8) Seconds Sodium 133 L (137-145) mmol/L Potassium 4.2 (3.4-5.0) mmol/L Chloride 98 (98-107) mmol/L Carbon Dioxide 28 (22-30) mmol/L Anion Gap 7 (4-12) mmol/L BUN 40 H D (9-20) mg/dL Creatinine 0.76 (0.7-1.3) mg/dL Estim Creat Clear Calc 59 ml/min Estimated GFR > 60 (59 - ) Glucose 130 H (65-110) mg/dL Calcium 9.5 (8.4-10.2) mg/dL Total Bilirubin 0.4 (0.2-1.3) mg/dL AST 22 (17-59) U/L ALT 18 (6-50) U/L Alkaline Phosphatase 88 (38-126) U/L Total Protein 6.5 (6.3-8.2) g/dL Albumin 4.1 (3.5-5.1) g/dL Urine Color Yellow (Yellow) Urine Appearance Clear (Clear) Urine pH 5.5 (5.0-9.0) Ur Specific [place] 1.020 (1.001-1.035) Urine Protein Negative (Negative) mg/dL Urine Glucose (UA) Negative (Negative) mg/dL Urine Ketones Negative (Negative) mg/dL Ur Blood (Man) Negative (Negative) Urine Nitrate Negative (Negative) Urine Bilirubin Negative (Negative) Urine Urobilinogen 1.0 (<2.0) mg/dL Leukocyte Esterase Rfl Negative (Negative) MIRZA/UL Blood Type A Positive Antibody Screen Negative <Levar Tejeda MD - Last Filed: 12/15/24 21:54> Imaging Data Attestation: I personally reviewed and interpreted this imaging study as follows: <Stephanie Dejesus APRN - Last Filed: 12/15/24 19:46> Radiologist's impression: Impressions Abdomen/Pelvis CT 12/15/24 16:12 IMPRESSION: Soft tissue density in the rectum measuring 3.8 x 3.3 cm may represent stool however mass cannot be entirely excluded. Clinically indicated follow-up colonoscopy can be done for further evaluation. <Setphanie Dejesus APRN - Last Filed: 12/15/24 19:46> Discharge Plan Discharge Clinical Impression: Painless rectal bleeding, Anemia, Hemorrhoids <Sherri Bell PA-C - Last Filed: 12/15/24 15:16> Patient Disposition: Still a Patient <CARMEN Vargas Last Filed: 12/15/24 15:16> Condition: Stable <Sherri Bell PA-C - Last Filed: 12/15/24 15:16>
[2024-12-15 15:34] LABS: Add Urine Microscopic? NO; Appearance Urine Clear (Clear); Glucose Urine UA Negative (Negative); Leukocyte Esterase Ur Negative LEU/UL (Negative); Nitrate Urine Negative (Negative); Specific Grav Ur 1.020 (1.001-1.035)
[2024-12-15 18:41] LABS: Hematocrit 31.4 % (42.0-52.0); Hemoglobin 10.2 g/dL (14.0-18.0)
--- NOTE | 2024-12-15 19:05 | P.HP_ITS ---
H&P: HPI History of Present Illness Date/Time: 12/15/24 19:05 Chief Complaint: Rectal Bleeding Narrative: 79 y/o M with PMH of vascular dementia, CVA, GI bleed secondary to NSAIDs, duodenal ulcer, BPH, dyslipidemia, hypertension, lymphoma s/p chemotherapy, chronic anemia, and diabetes presents with rectal bleeding. The patient presents here from home with his daughter on 12/15 for further evaluation of rectal bleeding. Patient had 1 episode of rectal bleeding following a formed bowel movement that was noted this morning, described as bright red blood. He reports he has not had any prior bright red blood per rectum or dark tarry stools. BRBPR is also accompanied by in increase in frequency of bowel movements and occasional bowel incontinence x1w, new for patient. He has a GI history significant for a large duodenal ulcer (2019), diverticulosis and internal hemorrhoids. The patient reports he is not currently on anticoagulation. He denies any associated abdominal pain, fever, chills, or body aches. Last colonoscopy in 2023 which showed diverticulosis, small nonbleeding internal hemorrhoids, and otherwise normal exam that did not require biopsies/specimens. Initial VS at presentation: Now 98.2? F, HR 71, R 16, 161/87, and 95% on RA. ED workup showed: No leukocytosis, hemoglobin 11.7, normal coags, sodium 133, creatinine 0.76 and GFR >60, glucose 130, and UA unremarkable. CT of the abdomen/pelvis showed a soft tissue density in the rectum measuring 3.8 x 3.3 cm, may represent stool however mass cannot be entirely excluded. Review of Systems Review of Systems: All systems reviewed & are unremarkable except as noted in HPI and below FOR[facility]LY [facility], [facility] Past Medical History Medical History COPD (chronic obstructive pulmonary disease) CHF (congestive heart failure) Vascular dementia Cerebral infarction Incisional hernia s/p repair, 2019 Hemorrhoids GI bleed due to NSAIDs Acute blood loss anemia Duodenal ulcer (~2019) Colon polyps Benign prostatic hyperplasia Dyslipidemia Essential hypertension Marginal zone lymphoma Treated with chemotherapy at [facility] in [place] per Dr. Gresham. Chronic anemia Ganglion cyst of joint of finger of left hand Type 2 diabetes mellitus without complications Surgical History Surgical History History of incisional hernia repair laparoscopic repair of multiple incisional hernia with 25x20 cm Symbotex mesh 09/17/19 History of transurethral resection of prostate Wound dehiscence, traumatic injury repair (~01/2019) Repair of abdominal wound fascial dehiscence with evisceration. Status post exploratory laparotomy (~12/2018) With excisional biopsy of periaortic and periportal lymphadenopathy, hi stology showing marginal zone lymphoma. Family History Family History Father Acute myocardial infarction Sibling Cerebrovascular accident Family history of malignant neoplasm of brain Mother Family history of congestive heart failure Sibling Lung cancer Social History Social History Social History: The patient is and lives in his own home in [place]. He has 3 biological children and 2 step children. 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 He is a lifelong nonsmoker and denies alcohol and drug abuse. He designates his daughter, Brisa Brunner, as his surrogate decision maker and he wishes to be a full code. Smoking packs per day: 0.5 Smoking cigarettes per day: 10.0 Years smoked: 50 Smoking pack-years: 25.00 Smoking status: Current every day smoker Tobacco type: cigarettes Second hand tobacco smoke exposure: Yes Alcohol intake: never Substance use: never Substance use type: does not use Do You Feel Safe in your Home?: Yes Lack of Transportation: No Lack of Food: Never True Current Housing: I Have Housing Concerned About Future Housing: No Difficulty Paying Gas/Electric Bills: No Difficulty Paying for Meds: No Currently Unemployed: No Education: Master's Degree or Higher Difficulty w/ Childcare or Family Care: No Living arrangements: alone Occupation/Education: occupation Additional occupation/education comments: 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 Gender identity (if verbalized by the patient): Male Spiritual care concerns: No Agree to blood products: Yes Meds Home Medications and Allergies Home Medications ?Medication ?Instructions ?Recorded ?Confirmed ?Type blood sugar diagnostic #10 ea 03/26/19 12/15/24 His tory lancets 33 gauge (OneTouch Delica #100 ea 03/26/19 History Lancets) atenolol 50 mg tablet (Tenormin) 50 mg PO DAILY #90 ta bs 03/11/24 12/15/24 Rx pioglitazone 45 mg tablet See Rx Instructions .Route 0 05/08/24 12/15/24 Rx .COMPLEX #90 tabs glimepiride 2 mg tablet 1 mg (1/2 x 2 mg) PO BID #18 0 tabs 05/09/24 12/15/24 Rx losartan 50 mg tablet See Rx Instructions .Route 0 06/18/24 12/15/24 Rx .COMPLEX #90 tabs atorvastatin 10 mg tablet 10 mg PO DAILY #90 tabs 07/2712/15/24 Rx omeprazole 20 mg capsule,delayed 20 mg PO BID #180 cap s 07/07/24 12/15/24 Rx release donepezil 5 mg tablet 10 mg (2 x 5 mg) .Route .COM PLEX 09/01/24 12/15/24 Rx #90 tabs escitalopram oxalate 10 mg tablet 10 mg PO DAILY #90 t abs 09/01/24 12/15/24 Rx (Lexapro) trazodone 50 mg tablet 50 mg PO QHS #90 tabs 12/15/24 Rx metformin 500 mg tablet 1,000 mg (2 x 500 mg) PO BID #360 09/08/24 12/15/24 Rx tabs thiamine HCl (vitamin B1) 50 mg 50 mg PO DAILY #90 tab s 09/15/24 12/15/24 Rx tablet ketorolac 10 mg tablet 10 mg PO Q8H PRN pain 5 days #20 09/18/24 12/15/24 Rx tabs mirtazapine 15 mg tablet 15 mg PO HS 12/15/24 5 History Allergies Allergy/AdvReac Type Severity Reaction Status Date / Time No Known Allergies Allergy Verified 12/15/24 12:50 Vital Signs Vital Signs - 24 hr 12/15/24 13:03 12/15/24 15:21 12/15/24 18:04 Temperature 98.2 F Pulse Rate 71 93 85 Respiratory Rate 16 18 18 Blood Pressure 161/87 H 160/86 H 162/88 H Pulse Oximetry 95 97 99 Oxygen Delivery Room Air Room Air Exam Const: General: comfortable and no acute distress Other: , male, elderly, nontoxic appearance HENMT: Face/Nose/Sinus: Normal nares present Mouth: Yes moist mucous membranes Eyes: General: appearance normal, both eyes and all related structures Sclera: sclerae normal Pupils: Equal, round and reactive pupils present EOM: EOMs intact bilaterally Resp: Effort & Inspection: normal respiratory effort Auscultation: clear to auscultation bilaterally Cardio: Rate: regular rate Rhythm: regular rhythm Other: S1-S2 present without murmur, rub, ectopy GI: Other: Abdomen soft, nondistended, nontender. Normoactive bowel sounds in all quadrants. Skin: General skin exam: normal color and no rashes or lesions noted Wounds: no wounds Neuro: Speech: normal speech Motor exam (neuro): 5/5 motor strength present throughout Sensory Exam: normal sensation Other: A&O x4 Extrem: General: normal to inspection Psych: Mental Status: mental status grossly normal Affect: normal affect Other: Good insight and judgment, pleasant H&P: Results Labs Labs: Short CBC 12/15/24 12/15/24 Range/Units 13:13 18:36 WBC 8.8 (4.5-10.0) K/mm3 Hgb 11.7 L 10.2 L (14.0-18.0) g/dL Hct 36.2 L 31.4 L (42.0-52.0) % Plt Count 247 (150-375) k/mm3 BMP 12/15/24 13:13 Sodium 133 L Potassium 4.2 Chloride 98 Carbon Dioxide 28 BUN 40 H D Creatinine 0.76 Glucose 130 H Calcium 9.5 Liver Function 12/15/24 Range/Units 13:13 Total Bilirubin 0.4 (0.2-1.3) mg/dL AST 22 (17-59) U/L ALT 18 (6-50) U/L Alkaline Phosphatase 88 (38-126) U/L Albumin 4.1 (3.5-5.1) g/dL Urine 12/15/24 Range/Units 15:18 Urine Color Yellow (Yellow) Urine Appearance Clear (Clear) Urine pH 5.5 (5.0-9.0) Ur Specific [place] 1.020 (1.001-1.035) Urine Protein Negative (Negative) mg/dL Urine Glucose (UA) Negative (Negative) mg/dL Assessment and Plan Assessment and plan (1) Painless rectal bleeding: Code(s): K62.5 - Hemorrhage of anus and rectum Status: Acute Assessment and Plan: Patient presented on 12/15 with painless rectal bleeding following a formed bowel movement earlier same morning of presentation. Poor historian due to history of vascular dementia. Reportedly has been intermittent for XX. Denies associated abdominal pain, fever, chills. Last colonoscopy in 2023 which showed diverticulosis and internal hemorrhoids, otherwise normal exam. CT of the abdomen/pelvis completed in the emergency department on 12/15 at which showed a soft tissue density in the rectum measuring 3.8 x 3.3 cm (may represent stool, however mass cannot be excluded). - GI consulted, plan for colonoscopy tomorrow morning on 12/16 - prep, clear liquid diet, NPO at midnight - monitor H&H (2) Type 2 diabetes mellitus without complications: Code(s): E11.9 - Type 2 diabetes mellitus without complications Status: Chronic Assessment and Plan: History of type 2 diabetes on oral medications. - hypoglycemia protocol - POC blood glucose ACHS - home medication: pioglitazone, metformin, glimepiride - correct regimen ordered - low dose TIDWM, based off BMI - A1C 6.8% on 09/08/2024 (3) Essential (primary) hypertension: Code(s): I10 - Essential (primary) hypertension Status: Chronic Assessment and Plan: - chronic, currently 172/94, stable. - hold home medications including losartan and atenolol as the patient will undergo a procedure tomorrow, resume when appropriate - hydralazine p.r.n. for BP greater than 180/90 - monitor (4) Dementia: Qualifiers: Dementia behavioral or psychological symptom: without behavioral, psychotic, or mood disturbance or anxiety Dementia severity: mild Dementia type: vascular dementia Qualified Code(s): F01.A0 - Vascular dementia, mild, without behavioral disturbance, psychotic disturbance, mood disturbance, and anxiety Code(s): F03.90 - Unspecified dementia, unspecified severity, without behavioral disturbance, psychotic disturbance, mood disturbance, and anxiety Status: Chronic Assessment and Plan: History of vascular dementia, A&Ox4 upon admission. - continue home medications post procedure: Donepezil Plan Diet: Clear liquid, NPO midnight GI Prophylaxis: N/a DVT Prophylaxis: SCDs IV fluids: 125 mL/hour Lines/Tubes: Peripheral IV Code Status: Full code Quality VTE Prophylaxis VTE prophylaxis: mechanical ordered Hospitalist MIPS Advance Care Plan I have confirmed that the patient's Advanced Care Plan is present, code status is documented, or surrogate decision maker is listed in patient medical record.: Yes Medication Reconciliation I have utilized all available resources to obtain, update and review the patients current medications (includes all prescriptions, OTC, herbals, cannabis, and nutritional supplements).: Yes
--- OUTSIDE RECORDS SUMMARY | 2024-12-15 19:13 | XMS_ITS ---
Author Organization [facility] [address] [facility] [place] [address] Care Team Providers Care E Commerce Merchant Name Role Phone Srini Smith MD Unavailable [phone] Courtney Pitt NP Primary Care Provider [phone] Active Problems Problem Noted Date Diagnosed Date Pneumonia 04/05/2022 Assessment & Plan (04/06/2022 12:28 PM BRICK SETTER OPERATOR): Pt presented with productive cough and [...] 04/05/2022 Assessment & Plan (04/05/2022 7:59 AM BRICK SETTER OPERATOR): - Home losartan and atenolol Elevated HDL 04/05/2022 Assessment & Plan (04/05/2022 8:01 AM BRICK SETTER OPERATOR): - Home atorvastatin Diabetes mellitus type 2 without retinopathy Assessment & Plan (10/01/2019 9:02 AM CDT): -- No background diabetic retinopathy (SHEEP OR CALF GRADER) -- No neovascularization of the disc (NVD), [...] (CMS/HCC) Assessment & Plan (04/06/2022 12:29 PM BRICK SETTER OPERATOR): - s/p Rituxan x4 () - Now with PD with likely left kidney involvement - BR x6C held in setting of infection, restart once infection resolved - Follow up with Dr Smith outpt Type 2 diabetes mellitus without complication Encounter for colonoscopy du e to history of adenomatous colonic polyps 04/16/2018 Overview (04/16/2018): Added automatically from request for surgery [id number] Ganglion of hand 01/16/2017 Current Treatment and [...] Smith MD 6 of 6 cycles started [id number] - [facility] - Lymphoma - ILyAD [...] 04/06/2022 Assessment & Plan (04/06/2022 12:29 PM BRICK SETTER OPERATOR): SpO2 down to 88%. On 2L O2. Likely 2/2 pna - Manage pna as elsewhere - Clinically improving with antibiotics. Wean O2 as tolerated Hyponatremia 04/05/2022 04/06/2022 Assessment & Plan (04/05/2022 1:09 PM BRICK SETTER OPERATOR): Na 1344 -> 139. 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/03/2022 023 Assessment & Plan (04/05/2022 7:53 AM BRICK SETTER OPERATOR): - s/p Rituxan x4 ([id number]) - Now with PD with likely left kidney involvement - BR x6C held in setting of infection, restart once infection resolved - Follows with Dr Smith
--- OUTSIDE RECORDS SUMMARY | 2024-12-15 19:13 | XMS_ITS | Clinical Summary ---
Author Organization [facility] Address [address] [facility] [place] Rocha [address] Care Team Providers Care International Student Counselor Name Role Phone Srini Smith MD Unavailable [phone] Courtney Pitt NP Primary Care Provider [phone] Allergies Active Allergy Reactions Criticality Noted Date [...] 04/05/2022 Assessment & Plan (04/06/2022 12:28 PM BEAMER OPERATOR): Pt presented with productive cough and [...] 04/05/2022 Assessment & Plan (04/05/2022 7:59 AM BEAMER OPERATOR): - Home losartan and atenolol Elevated HDL 04/05/2022 Assessment & Plan (04/05/2022 8:01 AM BEAMER OPERATOR): - Home atorvastatin Diabetes mellitus type 2 without retinopathy Assessment & Plan (10/01/2019 9:02 AM CDT): -- No background diabetic retinopathy (GROUP CAPTAIN) -- No neovascularization of the disc (NVD), [...] (CMS/HCC) Assessment & Plan (04/06/2022 12:29 PM BEAMER OPERATOR): - s/p Rituxan x4 () - 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 On 2L O2. Likely 2/2 pna - Manage pna as elsewhere - Clinically improving with antibiotics. Wean O2 as tolerated Hyponatremia 04/05/2022 04/06/2022 Assessment & Plan (04/05/2022 1:09 PM BEAMER OPERATOR): Na 1344 -> 139. 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 - BR x6C held in setting of infection, restart once infection resolved - Follows with Dr Smith Encounters Date Type Department Care Team Description 12/02/2024 Telephone [facility] Care [address] [address] Cherelle Oakley MA Chart Review (Med adherence) 11/10/2024 ACO Medication Access [address] [address] Carie Jonas CPhT 10/06/[address] [address] Mary Riley MA Chart Review ([facility] med rec) 09/17/2024 10:30 AM CDT [facility] [address] [phone] Annie Knight NP 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 6 [place] [address] Ace marginal zone B-cell lymphoma (CMS/HCC) ([facility]) 09/17/2024 Documentation [facility] Medicine Oncology [facility] [address] [phone] Jessica Luong, RN 09/17/2024 Documentation [facility] Social Work [address] [place] [phone] Petar Sweeney LCSW 09/15/2024 ACO Medication Access [facility] Accountable Care Organization [address] [place] [address] Carie Jonas, fish pitcher from Last 3 Months Immunizations Immunization Administration [...] on file Legal Sex Male 7:49 AM BEAMER OPERATOR Gender Identity Not on file Sexual [...] lymphoma (CMS/HCC) (HCC) COLONOSCOPY 04/23/2023 2:53 PM BEAMER OPERATOR HEMOGLOBIN A1C STAT 04/04/2022 1:00 AM BEAMER OPERATOR LIPID PANEL STAT 04/04/2022 1:00 AM BEAMER OPERATOR HEPATITIS C ANTIBODY Routine 01/22/2019 2:22 PM BEAMER OPERATOR Ace marginal zone B-cell lymphoma (HCC) [...] MD LAB BLOOD ORDERABLES Final R esult [facility] [address] [place] [address] * (ABNORMAL) Differential, auto (09/17/2024 9:43 AM CDT) Neutrophil abs 3.68 1.50 - 6.50 K/cumm Comment:Testing performed by : [facility], [address] [place], [place] [phone] Lymphocyte abs 0.48(L) 0.80 - 3.30 K/cumm [facility] Comment:Testing performed by : [facility], [address] [place] [address] Monocyte abs 0.51 0.20 - 0.80 K/cumm KATHARINE RIOS Comment:Testing performed by : [facility], [address] [place] [address] Eosinophil abs 0.09 0.00 - 0.50 K/cumm [facility] Comment:Testing performed by : [facility], [address] [place] [address] Basophil abs 0.03 0.00 - 0.10 K/cumm [facility] Comment:Testing performed by : [facility], [address] [place] [address] Neutrophil pct 77.0 % CERSANDRA RIOS Comment: Interpretive Data Percent cell count reference ranges are not reported, since discordance with absolute values may lead to misinterpretation of CBC data. Current Interpretive Data was last revised on 2017. Testing performed by: [facility], [address] [place] [phone] Lymphocyte pct 10.0 % KATHARINE RIOS Comment: Interpretive Data Percent cell count reference ranges are not reported, since discordance with absolute values may lead to misinterpretation of CBC data. Current Interpretive Data was last revised on 2017. Testing performed by: [facility], [address] [place] [phone] Monocyte pct 10.6 % KATHARINE RIOS Comment: Interpretive Data Percent cell count reference ranges are not reported, since discordance with absolute values may lead to misinterpretation of CBC data. Current Interpretive Data was last revised on 2017. Testing performed by: [facility], [address] [place] [phone] Eosinophil pct 1.9 % KATHARINE RIOS Comment: Interpretive Data Percent cell count reference ranges are not reported, since discordance with absolute values may lead to misinterpretation of CBC data. Current Interpretive Data was last revised on 2017. Testing performed by: [facility], [address] [place] [phone] Basophil pct 0.6 % KATHARINE RIOS Comment: Interpretive Data Percent cell count reference ranges are not reported, since discordance with absolute values may lead to misinterpretation of CBC data. Current Interpretive Data was last revised on 2017. Testing performed by: [facility], [address] [place] [phone] Blood 09/17/2024 9:43 AM CDT 09/17/2024 9:57 AM CDT us Srini Smith MD LAB BLOOD ORDERABLES Final R esult [facility] [address] [place] [address] * (ABNORMAL) CBC with auto differential (09/17/2024 9:43 AM CDT) WBC 4.78 3.80 - 9.90 K/cumm Comment:Testing performed by : [facility], [address] [place] [address] Hgb 13.1 13.0 - 17.5 g/dL CERNER BJ Comment:Testing performed by : [facility], [address] [place] [address] Hct 38.7(L) 38.9 - 50.3 % CERNER BJ Comment:Testing performed by : [facility], [address] [place] [address] Plt 252 150 - 400 K/cumm CERNER BJ Comment:Testing performed by : [facility], [address] [place] [address] MPV 7.7 6.8 - 10.4 fL CERNER BJ Comment:Testing performed by : [facility], [address] [place] [address] RBC 4.02(L) 4.30 - 5.80 M/cumm CERNER BJ Comment:Testing performed by : [facility], [address] [place] [address] MCV 96.1 81.3 - 96.4 fL CERNER BJ Comment:Testing performed by : [facility], [address] [place] [address] MCH 32.5 27.1 - 33.3 pg CERNER BJ Comment:Testing performed by : [facility], [address] [place] [address] MCHC 33.8 32.3 - 35.7 g/dL CERNER BJ Comment:Testing performed by : [facility], [address] [place] [address] RDW CV 14.8 11.1 - 14.9 % CERNER BJ Comment:Testing performed by : [facility], [address] [place] [address] NRBC abs 0.00 0.00 - 0.01 K/cumm [facility] Comment:Testing performed by : [facility], [address] [place] [phone] Blood 09/17/2024 9:43 AM CDT 09/17/2024 9:57 AM CDT Srini Smith MD LAB BLOOD ORDERABLES Final R esult Performing Organization Address City/[facility] Co de Phone Number [facility] [place] [address] * Lactate dehydrogenase (LD) (09/17/2024 9:43 AM CDT) Lactate dehydrogenase (LDH) 193 100 - 250 Units/L Blood 09/17/2024 9:43 AM CDT 09/17/2024 9:59 AM CDT Srini Smith MD LAB BLOOD ORDERABLES Final R esult Performing Organization Address [facility] [place] [address] * Beta 2 microglobulin, serum (09/17/2024 9:43 [...] ORDERABLES Final R esult Performing Organization Address [facility] Co de Phone Number [facility] [place] [address] * (ABNORMAL) Comprehensive metabolic panel (09/17/2024 9:43 AM CDT) Sodium 141 135 - 145 mmol/L Potassium, pl 4.0 3.3 - 4.9 mmol/L [facility] Chloride 99 97 - 110 mmol/L [facility] CO2 33(H) 22 - 32 mmol/L [facility] Anion gap 9 2 - 15 mmol/L [facility] BUN 9 6 - 25 mg/dL [facility] Creatinine 0.76(L) 0.80 - 1.30 mg/dL [facility] Glucose 192 70 - 199 mg/dL [facility] Comment: Interpretive Data Fasting glucose >/= [...] 2022. Calcium 9.3 8.5 - 10.3 mg/dL [facility] Bilirubin, total 0.7 0.1 - 1.2 mg/dL [facility] Protein, pl 6.5 6.5 - 8.5 g/dL [facility] Albumin 4.3 3.5 - 5.0 g/dL [facility] Alk phos 91 40 - 130 Units/L [facility] ALT 22 7 - 55 Units/L [facility] AST 20 10 - 50 Units/L [facility] Blood 09/17/2024 9:43 AM CDT 09/17/2024 9:59 AM CDT us Srini Smith MD LAB BLOOD ORDERABLES Final R esult [facility] [address] [facility] [place] [address] * Colonoscopy (04/23/2023 2:53 PM BEAMER OPERATOR) Anatomical Region Laterality Modality Other Narrative Procedure Note Radha Shaw MD - 04/23/2023 2:53 PM [facility] Patient Name: Konrad Nieto Procedure Date: 04/23/2023 2:53 PM Date of : 1945 Admit Type: Outpatient Age: 77 Gender: Male Attending MD: Radha Shaw M.D. Room: [facility] ENDOSCOPY ROOM 9 Note Status: [...] scope was passed under direct vision.The CF [id number] endoscope was introduced through the anus [...] On: 04/23/2023 2:53 PM Recognized by the [employer] for promoting quality in endoscopy us Radha Shaw MD ENDOSCOPY PROCEDURES Final Res ult * (ABNORMAL) Hemoglobin A1c (04/04/2022 1:00 AM BEAMER OPERATOR) Hgb A1C 7.9(H) 4.0 - 5.6 % [facility] Estimated Average Glucose 180 mg/dL [facility] Comment: The ADA recommends reporting an estimated Average Glucose (eAG) with all Hemoglobin A1c results using the equation derived from a study of 507 normal and diabetic adults. Minority populations were underrepresented and children were not included. (Diabetes Care 2020; 43(S1): S66-S76). The eAG is not equivalent to a fasting glucose. Blood 04/04/2022 1:00 AM BEAMER OPERATOR 04/04/2022 1:45 AM BEAMER OPERATOR Srini Smith MD LAB BLOOD ORDERABLES Final R esult [facility] [address] [place] [address] * Lipid panel (04/04/2022 1:00 AM BEAMER OPERATOR) Cholesterol 94 30 - 199 mg/dL [facility] Comment: Interpretive Data Ages < or [...] revised on 2017. Triglycerides 51 <=149 mg/dL [facility] Comment: Interpretive Data Ages < or [...] revised on 2017. HDL 53 >=40 mg/dL [facility] Comment: Interpretive Data Ages < or [...] on 2017. LDL, calculated 31 <=129 mg/dL [facility] Comment: Interpretive Data Ages < or [...] revised on 2017. Non-HDL Cholesterol 41 mg/dL [facility] Comment: Interpretive Data Ages < or [...] revised on 2017. Chol/HDL ratio 2 [facility] Blood 04/04/2022 1:00 AM BEAMER OPERATOR 04/04/2022 1:42 AM BEAMER OPERATOR us Srini Smith MD LAB BLOOD ORDERABLES Final R esult Performing Organization Address [facility] Co de Phone Number [facility] Department [place] [address] * Hepatitis C antibody (01/22/2019 2:22 PM BEAMER OPERATOR) Hep C Ab Nonreactive Nonreactive [facility] Comment: Interpretive Data Positive results should be confirmed by a molecular method. If positive, a second separately collected sample should be submitted for Hepatitis C Virus (HCV) RNA Detection and Quantitation by Real-Time Reverse Hvac Refrigeration Technician-PCR (RT-PCR). Current interpretive data was last revised on 2016. Blood specimen (specimen) 01/22/2019 2:22 PM BEAMER OPERATOR 01/22/2019 2:35 PM BEAMER OPERATOR us Annie donald NP LAB MICROBIOLOGY - GENERAL ORDERABLES Edited Result - Final Performing Organization Address [facility] Co de Phone Number [facility] Department [place] [address] from Last 3 Months or Most Recently Relevant to Health Maintenance [place] [address] [facility] MEDICARE ADVANTAGE [facility] MEDICARE ADVANTAGE Advance Directives For more information, please contact: [phone] * Full Code (Latest Code Status on File) Date Activated Date Inactivated Comments 04/23/2023 3:07 PM 04/23/2023 8:55 PM * Full Code Date Activated Date Inactivated Comments 04/03/2022 11:40 PM 04/06/2022 9:40 PM * Full Code Date Activated Date Inactivated Comments 04/26/2018 6:57 AM 04/26/2018 1:31 PM Care Teams International Student Counselor Relationship Specialty Start Date End Date Courtney Pitt NP [address] [place] [address] [address] [place] [address] PCP - General Internal Medicine 09/17/24 Srini Smith MD [address] [facility] DIV IM MEDICAL ONCOLOGY, [facility] [address]A, [address], [address] [place] [address] Medical Oncologist/Sales Operations Lead Medical Oncology 04/07/22
--- OUTSIDE RECORDS SUMMARY | 2024-12-15 19:13 | XMS_ITS | Encounter Summary ---
Author Organization [facility] Address [address] [place] [address] Phone Care Team Providers Care Molder Operator Name Role Phone Kun Oconnor MD Primary Care Provider + [phone] Chace Newman DO Primary Care Provider [phone] Srini Smith MD Unavailable [phone] Courtney Pitt NP Primary Care Provider [phone] Encounter Details Date Type Department Care Team (Latest Contact Info) Description 07/19/2019 Orders Only [facility] Scanning, Provider Social History Tobacco Use Types Packs/Day Years Used Date Smoking Tobacco: Never Smokeless Tobacco: Never Sex and Gender Information Value Date Recorded Sex Assigned at Not on file Legal Sex Male 7:49 AM TAX COMPLIANCE OFFICER Gender Identity Not on file Sexual Orientation [...] on filedocumented in this encounter Care Teams Molder Operator Relationship Specialty Start Date End Date Kun Oconnor MD [address] [place] [address] PCP - General 12/29/16 04/03/22 Chace Newman DO [address] [place] [address] PCP - General Family Medicine 04/04/22 09/16/24 Courtney Pitt NP [address] [facility] [address] [place] [address] PCP - General Internal Medicine 09/17/24 Srini Smith MD [address] [facility] MEDICAL ONCOLOGY, [facility] [address]A, [address], [address] [place] [address] Medical Oncologist/Corncob Pipe Manufacturing Supervisor Medical Oncology 04/07/22 documented as of this encounter
--- OUTSIDE RECORDS SUMMARY | 2024-12-15 19:13 | XMS_ITS | Encounter Summary ---
Author Organization [facility] Address [address] [place] [address] Phone Care Team Providers Care Globe Tester Name Role Phone Kun Oconnor MD Primary Care Provider + [phone] Chace Newman DO Primary Care Provider [phone] Srini Smith MD Unavailable [phone] Courtney Pitt NP Primary Care Provider [phone] Encounter Details Date Type Department Care Team (Latest Contact Info) Description 07/21/2019 Orders Only [facility] Scanning, Provider Social History Tobacco Use Types Packs/Day Years Used Date Smoking Tobacco: Never Smokeless Tobacco: Never Sex and Gender Information Value Date Recorded Sex Assigned at Not on file Legal 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 Gender Identity Not on file Sexual Orientation [...] on filedocumented in this encounter Care Teams Globe Tester Relationship Specialty Start Date End Date Kun Oconnor MD [address] [place] [address] PCP - General 12/29/16 04/03/22 Chace Newman DO [address] [place] [address] PCP - General Family Medicine 04/04/22 09/16/24 Courtney Pitt NP [address] [facility] [address] [place] [address] PCP - General Internal Medicine 09/17/24 Srini Smith MD [address] [facility] MEDICAL ONCOLOGY, [facility] [address]A, [address], [address] [place] [address] Medical Oncologist/Personal Care Aide Medical Oncology 04/07/22 documented as of this encounter
--- OUTSIDE RECORDS SUMMARY | 2024-12-15 19:13 | XMS_ITS | Encounter Summary ---
Author Organization [facility] Address [address] [place] [address] Phone Care Team Providers Care Dramatic Arts Historian Name Role Phone Kun Oconnor MD Primary Care Provider + [phone] Chace Newman DO Primary Care Provider [phone] Srini Smith MD Unavailable [phone] Courtney Pitt NP Primary Care Provider [phone] Encounter Details Date Type Department Care Team (Latest Contact Info) Description 07/18/2019 Orders Only [facility] Scanning, Provider Social History Tobacco Use Types Packs/Day Years Used Date Smoking Tobacco: Never Smokeless Tobacco: Never Sex and Gender Information Value Date Recorded Sex Assigned at Not on file Legal Sex Male 7:49 AM PIER MASTER Gender Identity Not on file Sexual Orientation [...] on filedocumented in this encounter Care Teams Dramatic Arts Historian Relationship Specialty Start Date End Date Kun Oconnor MD [address] [place] [address] PCP - General 12/29/16 04/03/22 Chace Newman DO [address] [place], [place] [id number] PCP - General Family Medicine 04/04/22 09/16/24 Courtney Pitt NP [address] [facility] [address] [place], [place] [address] PCP - General Internal Medicine 09/17/24 Srini Smith MD [address] [facility] MEDICAL ONCOLOGY, [facility] 7A, 7B, [address] [place] [address] Medical Oncologist/Distribution Collection Operator Medical Oncology 04/07/22 documented as of this encounter
--- OUTSIDE RECORDS SUMMARY | 2024-12-15 19:13 | XMS_ITS | Encounter Summary ---
Author Organization [facility] Address [address] [facility] [place] [address] Care Team Providers Care Assembler Camper Name Role Phone Unavailable Primary Care Provider Unavailabl e Encounter Details Date Type Department Care Team (Late st Contact Info) Description 01/01/2019 Lab Requisition [facility] Care Pathology Lab [address] [place] [address] Mainor Zavaleta MD [address] [place] [address] Enlarged lymph nodes, unspecified Social History [...] AM CDT) Case Report Flow Cytometry Case: [id number] Authorizing Provider: Mainor Zavaleta MD Collected: 01/01/2019 08:24 AM Ordering Location: [facility] Care Pathology Lab Received: 01/01/2019 12:16 PM Pathologist: Omkar Houston MD Specimen: Lymph Node, ANNA PORTAL AORTIC LYMPH NODE 9 11:50 AM CDT [facility] Final Diagnosis Lymph node, periportal aortic, flow cytometric immunophenotypic analysis: - CD5-negative, [id number] mature B-cell lymphoma. - See interpretation. 9 11:50 AM [facility] PATHOLOGY LAB at 1150 CDT [...] the flow cytometry specimen is reviewed for microbiology quality control technician purposes. Overall, the periportal aortic lymph node shows an evidence of involvement by CD5-negative, [id number] mature B-cell lymphoma. Correlation with clinical findings and concurrent tissue biopsy ([id number]) is required. 9 11:50 AM [facility] Flow Cytometry Results Differential Result Comment Flow Cell Count /uL 114,000 Total Viability % 79.0 Lymphocytes % 98 Dim CD45 Region % 1 Monocytes % 0 Granulocytes % 1 9 11:50 AM [facility] Reason for test Enlarged lymph nodes , unspecified 9 11:50 AM [facility] Client Specimen ID # [id number] 9 11:50 AM [facility] Number of markers 16 were performed. A-2 Flow CD3 A-4 Flow CD10 A-6 Flow CD20 A-7 Flow CD23 A-12 Flow CD2 A-13 Flow CD4 A-16 Flow CD1a A-3 Flow CD5 A-5 Flow CD19 A-8 Flow CD34 A-9 Flow CD45 A-14 Flow CD7 A-15 Flow CD8 A-17 Flow CD30 A-10 [place]+CD19+ A-11 Lambda+CD19+ 9 11:50 AM [facility] Disclaimer Test performed at [facility], [address] [place] [address], [address]. *The established laboratory minimum viability is 70%. [...] complexity clinical testing. 9 11:50 AM CDT [facility] PATHOLOGY LAB Embedded Images 9 11:50 AM CDT [facility] PATH[facility]Y LAB Pathology/Cytolo gy ENTIRE LYMPH NODE / Unknown 01/01/2019 8:24 AM CDT 01/01/2019 12:16 PM CDT Mainor Zavaleta MD LAB - PATHOLOGY/CYTOLOGY ORDER [place] Final Result [facility] PATH[facility] LAB [address] [phone] documented in this encounter Visit Diagnoses Diagnosis Enlarged lymph nodes, unspecified documented in this encounter
--- OUTSIDE RECORDS SUMMARY | 2024-12-15 19:13 | XMS_ITS | Encounter Summary ---
Author Organization [facility] Address [address] [place] [address] Care Team Providers Care Urban Planning Teacher Name Role Phone Unavailable Primary Care Provider Unavailabl e Encounter Details Date Type Department Care Team (Late st Contact Info) Description 01/03/[address] [facility] Care Pathology Lab [address] [place] [address] Mainor Zavaleta MD [id number] [place] [id number] Social History Tobacco Use Types Packs/Day [...] CDT) Case Report Surgical Pathology Report Case: [id number] Authorizing Provider: Mainor Zavaleta MD Collected: 01/01/2019 09:25 AM Ordering Location: [facility] Received: 01/03/2019 09:41 AM Pathologist: Lu King MD Specimen: Lymph Node Biopsy, [id number] 01/06/2019 11:46 AM [facility] Final Diagnosis Lymph nodes, periportal aortic, excision: - Marginal zone lymphoma. - See description. 01/06/2019 11:46 AM [facility] at [address] [facility] Microscopic Description and Comment Review of the [...] are performed on block B3 in the [facility] Department of Pathology, with appropriately reactive controls, and demonstrate the followings: CD20 and BCL-2 are positive in the neoplastic cells. CD3, CD5, CD10, CD23, CD43, cyclin D1, and MUM-1 are negative in the neoplastic cells. CD23 shows a few residual follicular dendritic cell meshworks that are colonized by neoplastic cells. Concurrent lymph node flow cytometry ([id number]) detects a CD5-negative, [id number] mature B-cell lymphoma. 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 Correlation with clinical findings and relevant cytogenetic/molecular testing is required. KR/MM 01/06/2019 11:46 AM [facility] Clinical History Lymphadenopathy. 01/06/2019 11:46 AM [facility] Materials Received Received from [facility], [place], [place] are 5 slides and 5 blocks labeled Konrad Nieto and [id number]. All original materials are returned along with a copy of our report. 01/06/2019 11:46 AM [facility] Disclaimer The performance characteristics of all immunohistochemical and indirect immunofluorescence stains (if any) cited in this report were determined by the Histopathology Laboratory of [facility]. Some of these tests were developed [...] interpretation of this case is performed by [facility] Pathology at [facility], [address] [place] [id number]. 01/06/2019 11:46 AM [facility] Embedded Images 01/06/2019 11:46 AM [facility] Pathology/Cytolo gy BIOPSY OF LYMPH NODE / Unknown 01/01/2019 9:25 AM CDT 01/03/2019 9:41 AM CDT Mainor Zavaleta MD LAB - PATHOLOGY/CYTOLOGY ORDER ROMAIN Final Result [facility] [address] [place] [address] documented in this encounter Visit Diagnoses Not on filedocumented in this encounter
[2024-12-15] MEDS: PANTOPRAZOLE SODIUM IV 40 MG VIAL IV PUSH (19:40)
[2024-12-15] MEDS: SODIUM CHLORIDE 0.9% IV 1,000 ML 125 ML IV CONT (19:41)
[2024-12-15] MEDS: SIMETHICONE 80 MG TAB.CHEW 160 MG PO (23:08)
[2024-12-15] MEDS: BISACODYL 5 MG TABLET EC 10 MG PO (23:09)
[2024-12-16] VITALS (8 sets, daily range): BP systolic 158–183; BP diastolic 73–94; PULSE 76–94; RESP 16–24; TEMP 35.8–36.9; O2SAT 96–100; BMI 16.1
[2024-12-16] MEDS: MAGNESIUM CITRATE 300 ML BTL 180 ML PO (01:36)
[2024-12-16 02:06] LABS: Hematocrit 32.8 % (42.0-52.0); Hemoglobin 10.9 g/dL (14.0-18.0); Immature Granulocyte Percent A 0.2 % (0-0.5); Lymphocytes Absolute Auto 0.25 K/mm3 (0.9-3.2); Mean Corpuscular HGB Conc 33.2 g/dl (32-36); Mean Corpuscular Hemoglobin 33.2 pg (26-34); Mean Corpuscular Volume 100.0 fl (80-100); Nucleated Red Blood Cells Absolute Auto 0.000 K/mm3 (0.0-0.012); Nucleated Red Blood Cells Perc 0.0 % (0.0-0.2); Platelet Count Result 211 k/mm3 (150-375); Red Blood Count 3.28 M/mm3 (4.6-6.20); White Blood Count 5.6 K/mm3 (4.5-10.0)
[2024-12-16 02:22] LABS: Anion Gap 4 mmol/L (4-12); Blood Urea Nitrogen 24 mg/dL (9-20); Calcium 9.0 mg/dL (8.4-10.2); Carbon Dioxide 29 mmol/L (22-30); Chloride 100 mmol/L (98-107); Estimated CRCL calculation 74 ml/min; Estimated Glomerular Filt Rate > 60; Glucose 177 mg/dL (65-110); Potassium 3.8 mmol/L (3.4-5.0); Sodium 133 mmol/L (137-145)
[2024-12-16 02:48] LABS: Anisocytosis 1+; Burr Cells Occasional; Microcytosis 1+ (NORMAL); Ovalocytes Occasional; Schistocytes None Seen
--- NOTE | 2024-12-16 06:05 | ADMGEN ---
This patient, Konrad Nieto, was admitted to [address] [facility] Surg Room 329-01. Patient/family oriented to hospital policies and general routines including ID bracelet, bed and alarms, visiting hours, pain management, procedures, bathroom and other care routines, personal items, smoking policy, room service/diet, and visiting hours. Information on how to activate the Rapid Response Team has been discussed. Patient/Family are encouraged to report perceived risks to care and to ask questions if they do not understand what they are told or what they should do.
[2024-12-16] MEDS: SODIUM CHLORIDE 0.9% IV 1,000 ML 125 ML IV CONT ×3 (08:22→19:33)
--- NOTE | 2024-12-16 10:03 | PC.NURSE ---
To GI Lab per wheelchair.
--- NOTE | 2024-12-16 10:31 | WPDGICN ---
Assessment and Plan Assessment and plan (1) Painless rectal bleeding: Code(s): K62.5 - Hemorrhage of anus and rectum Status: Acute Assessment and Plan: one episode, denies abdominal pain colonoscopy last year without concerning findings however CT scan can not rule out malignancy in rectum- will proceed with colonoscopy today, he is agreeable (2) Chronic anemia: Code(s): D64.9 - Anemia, unspecified Status: Acute Assessment and Plan: monitor no more episode of bleeding (3) Abnormal CT scan, colon: Code(s): R93.3 - Abnormal findings on diagnostic imaging of other parts of digestive tract Status: Acute Assessment and Plan: colonoscopy today (4) 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: Code(s): C85.83 - Other specified types of non-Hodgkin lymphoma, intra-abdominal lymph nodes Status: Acute (5) Type 2 diabetes mellitus without complications: Code(s): E11.9 - Type 2 diabetes mellitus without complications Status: Chronic GI Consult Note Consult date/time: 12/16/24 10:31 Reason for consult: rectal bleeding HPI: Konrad Nieto is a 79 year old male with vascular dementia, GI bleed secondary to NSAIDs and duodenal ulcer, BPH, dyslipidemia, hypertension, lymphoma 2019 diagnosed after bx of lymph node s/p chemotherapy with rituxan on remission, chronic anemia, and diabetes presents here with new onset of rectal bleeding. He had 1 episode of rectal bleeding following a formed bowel movement, described as bright red blood. His last colonoscopy in 2023 at another hospital, no lesions, had diverticulosis and small hemorrhoid (report reviewed). He is not currently on anticoagulation. ER showed No leukocytosis, hemoglobin 11.7, normal coags, sodium 133, creatinine 0.76. CT of the abdomen/pelvis showed a soft tissue density in the rectum measuring 3.8 x 3.3 cm, may represent stool however mass cannot be entirely excluded. Denies abdominal pain or weight loss. Review of Systems Constitutional: Constitutional: Denies chills Eyes: Eyes: Denies blurry vision ENT: Reports Normal hearing present Cardiovascular: Cardiovascular: Denies chest pain Respiratory: Respiratory: Denies chest congestion Gastrointestinal: Gastrointestinal: Reports hematochezia Genitourinary: Genitourinary: Denies dysuria Musculoskeletal: Musculoskeletal: Denies back pain Integumentary/Breasts: Skin/Breast: Denies rash Neurologic: Denies Abnormal speech present Psychiatric: Psychiatric: Denies behavioral changes [facility] Past Medical History Medical History (Updated 12/16/24 @ 10:40 by Uday Park MD) Abnormal CT scan, colon COPD (chronic obstructive pulmonary disease) CHF (congestive heart failure) Vascular dementia Cerebral infarction Incisional hernia s/p repair, 2019 Hemorrhoids GI bleed due to NSAIDs Acute blood loss anemia Duodenal ulcer (~2019) Colon polyps Benign prostatic hyperplasia Dyslipidemia Essential hypertension Marginal zone lymphoma Treated with chemotherapy at [facility] in [place] per Dr. Gresham. Chronic anemia Ganglion cyst of joint of finger of left hand Type 2 diabetes mellitus without complications Surgical History Surgical History History of incisional hernia repair laparoscopic repair of multiple incisional hernia with 25x20 cm Symbotex mesh 09/17/19 History of transurethral resection of prostate Wound dehiscence, traumatic injury repair (~01/2019) Repair of abdominal wound fascial dehiscence with evisceration. Status post exploratory laparotomy (~12/2018) With excisional biopsy of periaortic and periportal lymphadenopathy, histology showing marginal zone lymphoma. Family History Family History Father Acute myocardial infarction Sibling Cerebrovascular accident Family history of malignant neoplasm of brain Mother Family history of congestive heart failure Sibling Lung cancer Social History Social History Social History: The patient is and lives in his own home in [place]. He has 3 biological children and 2 step children. 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 He is a lifelong nonsmoker and denies alcohol and drug abuse. He designates his daughter, Brisa Brunner, as his surrogate decision maker and he wishes to be a full code. Smoking packs per day: 0.5 Smoking cigarettes per day: 10.0 Years smoked: 50 Smoking pack-years: 25.00 Smoking status: Never smoker Tobacco type: cigarettes Second hand tobacco smoke exposure: No Alcohol intake: never Substance use: never Substance use type: does not use Do You Feel Safe in your Home?: Yes Lack of Transportation: No Lack of Food: Never True Current Housing: I Have Housing Concerned About Future Housing: No Difficulty Paying Gas/Electric Bills: No Difficulty Paying for Meds: No Currently Unemployed: No Education: Decline to Answer Difficulty w/ Childcare or Family Care: No Living arrangements: alone Occupation/Education: occupation Additional occupation/education comments: 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 Gender identity (if verbalized by the patient): Male Spiritual care concerns: No Agree to blood products: Yes Meds Home Medications and Allergies Home Medications ?Medication ?Instructions ?Recorded ?Confirmed ?Type blood sugar diagnostic #10 ea 03/26/19 12/15/24 History lancets 33 gauge (OneTouch Delica #100 ea 03/26/19 12/15/24 History Lancets) atenolol 50 mg tablet (Tenormin) 50 mg PO DAILY #90 tabs 03/11/24 12/15/24 Rx pioglitazone 45 mg tablet See Rx Instructions .Route 05/08/24 12/15/24 Rx .COMPLEX #90 tabs glimepiride 2 mg tablet 1 mg (1/2 x 2 mg) PO BID #180 tabs 05/09/24 12/15/24 Rx losartan 50 mg tablet See Rx Instructions .Route 06/18/24 12/15/24 Rx .COMPLEX #90 tabs atorvastatin 10 mg tablet 10 mg PO DAILY #90 tabs 07/07/24 12/15/24 Rx omeprazole 20 mg capsule,delayed 20 mg PO BID #180 caps 07/07/24 12/15/24 Rx release donepezil 5 mg tablet 10 mg (2 x 5 mg) .Route .COMPLEX 09/01/24 12/15/24 Rx #90 tabs escitalopram oxalate 10 mg tablet 10 mg PO DAILY #90 tabs 09/01/24 12/15/24 Rx (Lexapro) trazodone 50 mg tablet 50 mg PO QHS #90 tabs 09/01/24 12/15/24 Rx metformin 500 mg tablet 1,000 mg (2 x 500 mg) PO BID #360 09/08/24 12/15/24 Rx tabs thiamine HCl (vitamin B1) 50 mg 50 mg PO DAILY #90 tabs 09/15/24 12/15/24 Rx tablet ketorolac 10 mg tablet 10 mg PO Q8H PRN pain 5 days #20 09/18/24 12/15/24 Rx tabs mirtazapine 15 mg tablet 15 mg PO HS 12/15/24 12/15/24 History Allergies Allergy/AdvReac Type Severity Reaction Status Date / Time No Known Allergies Allergy Verified 12/16/24 10:21 Vital Signs Vital Signs - 24 hr 12/15/24 13:03 12/15/24 15:21 12/15/24 16:31 Temperature 98.2 F Pulse Rate 71 93 Respiratory Rate 16 18 Blood Pressure 161/87 H 160/86 H 165/89 H Pulse Oximetry 95 97 96 Oxygen Delivery Room Air 12/15/24 18:04 12/15/24 18:04 12/15/24 19:00 Temperature Pulse Rate 85 78 81 Respiratory Rate 18 18 16 Blood Pressure 162/88 H 162/88 H 172/94 H Pulse Oximetry 99 99 99 Oxygen Delivery Room Air 12/15/24 20:24 12/15/24 21:22 12/16/24 05:23 Temperature 98.2 F 97.8 F 98.1 F Pulse Rate 78 76 80 Respiratory Rate 20 18 16 Blood Pressure 169/92 H 165/90 H 158/77 H Pulse Oximetry 97 96 97 Oxygen Delivery 12/16/24 08:00 12/16/24 10:28 Temperature 97.2 F L Pulse Rate 84 Respiratory Rate 18 Blood Pressure 183/92 H Pulse Oximetry 96 Oxygen Delivery Room Air Room Air Exam Const: General: comfortable and no acute distress HENMT: Face/Nose/Sinus: Normal nares present Eyes: General: appearance normal, both eyes and all related structures Neck: Neck: supple Resp: Auscultation: clear to auscultation bilaterally Cardio: Rate: regular rate Rhythm: regular rhythm GI: Inspection: non-distended GI Palp: Yes Soft to palpation and No Tenderness to palpation present (GI) Auscultation: normal bowel sounds Skin: General skin exam: normal color Neuro: Speech: normal speech Extrem: General: normal to inspection Psych: Mental Status: mental status grossly normal Results Labs 12/16/24 02:03 12/16/24 02:03 Labs: Short CBC 12/15/24 12/15/24 12/16/24 Range/Units 13:13 18:36 02:03 WBC 8.8 5.6 (4.5-10.0) K/mm3 Hgb 11.7 L 10.2 L 10.9 L (14.0-18.0) g/dL Hct 36.2 L 31.4 L 32.8 L (42.0-52.0) % Plt Count 247 211 (150-375) k/mm3 BMP 12/15/24 12/16/24 13:13 02:03 Sodium 133 L 133 L Potassium 4.2 3.8 Chloride 98 100 Carbon Dioxide 28 29 BUN 40 H D 24 H D Creatinine 0.76 0.57 L Glucose 130 H 177 H Calcium 9.5 9.0 Liver Function 12/15/24 Range/Units 13:13 Total Bilirubin 0.4 (0.2-1.3) mg/dL AST 22 (17-59) U/L ALT 18 (6-50) U/L Alkaline Phosphatase 88 (38-126) U/L Albumin 4.1 (3.5-5.1) g/dL Urine 12/15/24 Range/Units 15:18 Urine Color Yellow (Yellow) Urine Appearance Clear (Clear) Urine pH 5.5 (5.0-9.0) Ur Specific [place] 1.020 (1.001-1.035) Urine Protein Negative (Negative) mg/dL Urine Glucose (UA) Negative (Negative) mg/dL
[2024-12-16] MEDS: LACTATED RINGERS 1,000 ML 150 ML IV CONT (10:32)
--- NOTE | 2024-12-16 10:35 | P.PNAN_ITS ---
Anes - Initial Pre Proc Eval Procedure: Operation Date: 12/16/24 14:30 Proposed Procedures p Diagnostic Colonoscopy - Uday Park MD Date/Time: 12/16/24 10:35 Surgeon: Tyler Nevarez MD Pre Op Diagnosis: Rectal bleed, Anemia Patient Data Age: 79 Gender: M Height: 1.88 m Weight: 57 kg Last Vital Signs Temp 36.2 C L 12/16/24 10:28 Pulse 84 12/16/24 10:28 Resp 18 12/16/24 10:28 BP 183/92 H 12/16/24 10:28 Pulse Ox 96 12/16/24 10:28 O2 Del Method Room Air 12/16/24 10:28 Allergies Allergy/AdvReac Type Severity Reaction Status Date / Time No Known Allergies Allergy Verified 12/16/24 10:21 Home Medications ?Medication ?Instructions ?Recorded ?Confirmed ?Type blood sugar diagnostic #10 ea 03/26/19 12/15/24 His tory lancets 33 gauge (OneTouch Delica #100 ea 03/26/19 History Lancets) atenolol 50 mg tablet (Tenormin) 50 mg PO DAILY #90 ta bs 03/11/24 12/15/24 Rx pioglitazone 45 mg tablet See Rx Instructions .Route 0 05/08/24 12/15/24 Rx .COMPLEX #90 tabs glimepiride 2 mg tablet 1 mg (1/2 x 2 mg) PO BID #18 0 tabs 05/09/24 12/15/24 Rx losartan 50 mg tablet See Rx Instructions .Route 0 06/18/24 12/15/24 Rx .COMPLEX #90 tabs atorvastatin 10 mg tablet 10 mg PO DAILY #90 tabs 07/2712/15/24 Rx omeprazole 20 mg capsule,delayed 20 mg PO BID #180 cap s 07/07/24 12/15/24 Rx release donepezil 5 mg tablet 10 mg (2 x 5 mg) .Route .COM PLEX 09/01/24 12/15/24 Rx #90 tabs escitalopram oxalate 10 mg tablet 10 mg PO DAILY #90 t abs 09/01/24 12/15/24 Rx (Lexapro) trazodone 50 mg tablet 50 mg PO QHS #90 tabs 12/15/24 Rx metformin 500 mg tablet 1,000 mg (2 x 500 mg) PO BID #360 09/08/24 12/15/24 Rx tabs thiamine HCl (vitamin B1) 50 mg 50 mg PO DAILY #90 tab s 09/15/24 12/15/24 Rx tablet ketorolac 10 mg tablet 10 mg PO Q8H PRN pain 5 days #20 09/18/24 12/15/24 Rx tabs mirtazapine 15 mg tablet 15 mg PO HS 12/15/24 5 History Laboratory Tests 12/15/24 12/15/24 12/15/24 13:13 15:18 18:36 WBC 8.8 K/mm3 (4.5-10.0) RBC 3.51 L M/mm3 (4.6-6.20) Hgb 11.7 L g/dL 10.2 L g/dL (14.0-18.0) (14.0-18.0) Hct 36.2 L % 31.4 L % (42.0-52.0) (42.0-52.0) MCV 103.1 H fl (80-100) MCH 33.3 pg (26-34) MCHC 32.3 g/dl (32-36) RDW 14.6 H % (11.5-14.5) Plt Count 247 k/mm3 (150-375) MPV 9.1 fl (7.4-10.4) Immature Gran % (Auto) 0.5 % (0-0.5) Neut % (Auto) 84.1 H % (45.5-73.1) Lymph % (Auto) 4.9 L % (18.3-44.2) [place] % (Auto) 7.7 % (2.6-8.5) Eos % (Auto) 2.5 % (0-4.4) Baso % (Auto) 0.3 % (0.2-1.2) Lymph # (Auto) 0.43 L K/mm3 (0.9-3.2) [place] # (Auto) 0.7 H K/mm3 (0.1-0.6) Eos # (Auto) 0.2 K/mm3 (0-0.3) Baso # (Auto) 0.0 K/mm3 (0.0-0.1) Abs Immat Gran (auto) 0.04 H K/mm3 (0.00-0.031) Absolute Neuts (auto) 7.4 H K/mm3 (1.3-6.7) Absolute Nucleated RBC 0.000 K/mm3 (0.0-0.012) Band Neutrophils % Nucleated RBC % 0.0 % (0.0-0.2) Platelet Estimate Anisocytosis Microcytosis Ovalocytes [place] Cells Schistocytes PT 12.9 Seconds (11.1-14.7) INR 1.0 APTT 31.0 Seconds (22.3-36.8) Sodium 133 L mmol/L (137-145) Potassium 4.2 mmol/L (3.4-5.0) Chloride 98 mmol/L (98-107) Carbon Dioxide 28 mmol/L (22-30) Anion Gap 7 mmol/L (4-12) BUN 40 H D mg/dL (9-20) Creatinine 0.76 mg/dL (0.7-1.3) Estim Creat Clear Calc 59 ml/min Estimated GFR > 60 (59 - ) Glucose 130 H mg/dL (65-110) POC Capillary Glucose Calcium 9.5 mg/dL (8.4-10.2) Total Bilirubin 0.4 mg/dL (0.2-1.3) AST 22 U/L (17-59) ALT 18 U/L (6-50) Alkaline Phosphatase 88 U/L (38-126) Total Protein 6.5 g/dL (6.3-8.2) Albumin 4.1 g/dL (3.5-5.1) Urine Color Yellow (Yellow) Urine Appearance Clear (Clear) Urine pH 5.5 (5.0-9.0) Ur Specific [place] 1.020 (1.001-1.035) Urine Protein Negative mg/dL (Negative) Urine Glucose (UA) Negative mg/dL (Negative) Urine Ketones Negative mg/dL (Negative) Ur Blood (Man) Negative (Negative) Urine Nitrate Negative (Negative) Urine Bilirubin Negative (Negative) Urine Urobilinogen 1.0 mg/dL (<2.0) Leukocyte Esterase Rfl Negative MIRZA/UL (Negative) Blood Type A Positive Antibody Screen Negative 12/15/24 12/15/24 12/16/24 22:36 23:41 02:03 WBC 5.6 K/mm3 (4.5-10.0) RBC 3.28 L M/mm3 (4.6-6.20) Hgb 10.9 L g/dL (14.0-18.0) Hct 32.8 L % (42.0-52.0) MCV 100.0 fl (80-100) MCH 33.2 pg (26-34) MCHC 33.2 g/dl (32-36) RDW 14.4 % (11.5-14.5) Plt Count 211 k/mm3 (150-375) MPV 9.0 fl (7.4-10.4) Immature Gran % (Auto) 0.2 % (0-0.5) Neut % (Auto) 81.1 H % (45.5-73.1) Lymph % (Auto) 4.5 L % (18.3-44.2) [place] % (Auto) 9.6 H % (2.6-8.5) Eos % (Auto) 4.1 % (0-4.4) Baso % (Auto) 0.5 % (0.2-1.2) Lymph # (Auto) 0.25 L K/mm3 (0.9-3.2) [place] # (Auto) 0.5 K/mm3 (0.1-0.6) Eos # (Auto) 0.2 K/mm3 (0-0.3) Baso # (Auto) 0.0 K/mm3 (0.0-0.1) Abs Immat Gran (auto) 0.01 K/mm3 (0.00-0.031) Absolute Neuts (auto) 4.6 K/mm3 (1.3-6.7) Absolute Nucleated RBC 0.000 K/mm3 (0.0-0.012) Band Neutrophils % Not Reportable Nucleated RBC % 0.0 % (0.0-0.2) Platelet Estimate Adequate (Adequate) Anisocytosis 1+ Microcytosis 1+ (NORMAL) Ovalocytes Occasional [place] Cells Occasional Schistocytes None seen PT INR APTT Sodium 133 L mmol/L (137-145) Potassium 3.8 mmol/L (3.4-5.0) Chloride 100 mmol/L (98-107) Carbon Dioxide 29 mmol/L (22-30) Anion Gap 4 mmol/L (4-12) BUN 24 H D mg/dL (9-20) Creatinine 0.57 L mg/dL (0.7-1.3) Estim Creat Clear Calc 74 ml/min Estimated GFR > 60 (59 - ) Glucose 177 H mg/dL (65-110) POC Capillary Glucose 68 mg/dl 154 H mg/dl (65-105) (65-105) Calcium 9.0 mg/dL (8.4-10.2) Total Bilirubin AST ALT Alkaline Phosphatase Total Protein Albumin Urine Color Urine Appearance Urine pH Ur Specific [place] Urine Protein Urine Glucose (UA) Urine Ketones Ur Blood (Man) Urine Nitrate Urine Bilirubin Urine Urobilinogen Leukocyte Esterase Rfl Blood Type Antibody Screen 12/16/24 12/16/24 07:16 10:17 WBC RBC Hgb Hct MCV MCH MCHC RDW Plt Count MPV Immature Gran % (Auto) Neut % (Auto) Lymph % (Auto) [place] % (Auto) Eos % (Auto) Baso % (Auto) Lymph # (Auto) [place] # (Auto) Eos # (Auto) Baso # (Auto) Abs Immat Gran (auto) Absolute Neuts (auto) Absolute Nucleated RBC Band Neutrophils % Nucleated RBC % Platelet Estimate Anisocytosis Microcytosis Ovalocytes [place] Cells Schistocytes PT INR APTT Sodium Potassium Chloride Carbon Dioxide Anion Gap BUN Creatinine Estim Creat Clear Calc Estimated GFR Glucose POC Capillary Glucose 86 mg/dl 103 mg/dl (65-105) (65-105) Calcium Total Bilirubin AST ALT Alkaline Phosphatase Total Protein Albumin Urine Color Urine Appearance Urine pH Ur Specific [place] Urine Protein Urine Glucose (UA) Urine Ketones Ur Blood (Man) Urine Nitrate Urine Bilirubin Urine Urobilinogen Leukocyte Esterase Rfl Blood Type Antibody Screen Patient hx anesthesia problems: none Family hx anesthesia problems: none Results Review: All pre-operative results and documents have been reviewed as part of the pre- operative evaluation. [facility] Past Medical History Medical History (Updated 12/16/24 @ 10:40 by Uday Park MD) Abnormal CT scan, colon COPD (chronic obstructive pulmonary disease) CHF (congestive heart failure) Vascular dementia Cerebral infarction Incisional hernia s/p repair, 2019 Hemorrhoids GI bleed due to NSAIDs Acute blood loss anemia Duodenal ulcer (~2019) Colon polyps Benign prostatic hyperplasia Dyslipidemia Essential hypertension Marginal zone lymphoma Treated with chemotherapy at [facility] in [place] per Dr. Gresham. Chronic anemia Ganglion cyst of joint of finger of left hand Type 2 diabetes mellitus without complications Surgical History Surgical History History of incisional hernia repair laparoscopic repair of multiple incisional hernia with 25x20 cm Symbotex mesh 09/17/19 History of transurethral resection of prostate Wound dehiscence, traumatic injury repair (~01/2019) Repair of abdominal wound fascial dehiscence with evisceration. Status post exploratory laparotomy (~12/2018) With excisional biopsy of periaortic and periportal lymphadenopathy, histology showing marginal zone lymphoma. Family History Family History Father Acute myocardial infarction Sibling Cerebrovascular accident Family history of malignant neoplasm of brain Mother Family history of congestive heart failure Sibling Lung cancer Social History Social History Social History: The patient is and lives in his own home in [place]. He has 3 biological children and 2 step children. 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 He is a lifelong nonsmoker and denies alcohol and drug abuse. He designates his daughter, Brisa Brunner, as his surrogate decision maker and he wishes to be a full code. Smoking packs per day: 0.5 Smoking cigarettes per day: 10.0 Years smoked: 50 Smoking pack-years: 25.00 Smoking status: Never smoker Tobacco type: cigarettes Second hand tobacco smoke exposure: No Alcohol intake: never Substance use: never Substance use type: does not use Do You Feel Safe in your Home?: Yes Lack of Transportation: No Lack of Food: Never True Current Housing: I Have Housing Concerned About Future Housing: No Difficulty Paying Gas/Electric Bills: No Difficulty Paying for Meds: No Currently Unemployed: No Education: Decline to Answer Difficulty w/ Childcare or Family Care: No Living arrangements: alone Occupation/Education: occupation Additional occupation/education comments: 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 [employer] Gender identity (if verbalized by the patient): Male Spiritual care concerns: No Agree to blood products: Yes Anes - Eval Final PreProcedure Day of Procedure 12/16/24 10:35 Patient weight: cachectic Heart: regular rate and rhythm Lungs: normal air movement Airway: Mallampati scale class II Neurological: alert and oriented Last oral intake: >/= 8 hours ASA classification: IV Emergent: no Anesthetic plan: proceed Anesthesia type and monitoring: general GIVS and standard monitoring Results Review: All pre-operative results and documents have been reviewed as part of the pre- operative evaluation. Informed Consent: The patient's anesthetic plan and its attendant risks and benefits were discussed with the patient/family/POA. Questions were solicited and answers provided to the satisfaction of the patient/family/POA.
--- NOTE | 2024-12-16 10:57 | S_PTH ---
PATIENT: Konrad Nieto LOC: [id number] U#:[id number] AGE/SX: 79/M ROOM: 329 RE12/16/[address]: Angela Barron PA-C : 1945 BED: 01 DIS: 12/17/2024 SPEC #: [id number] RECD: 12/16/24 11:43 STATUS: HARIS REAdolph #: [id number] GIOVANNA: 12/16/24 10:[address]: Uday Park DEPT: [facility] Surgical RECD BY: Denisse Landa ENTERED: 12/16/24 11:43 SP TYPE: Surgical OTHR DR: Tyler Nevarez MD UNKNOWN,DOCTOR Tissues: A - Colon Polypectomy B - Colon Biopsy Procedures: Hematoxylin and Eosin Stain Gross and Microscopic Level 4
--- NOTE | 2024-12-16 11:50 | PC.NURSE ---
Pt came back to room at 11:40 am.
--- NOTE | 2024-12-16 13:17 | PM.CNGS ---
Assessment and Plan Assessment and plan (1) Rectal mass: Code(s): K62.89 - Other specified diseases of anus and rectum Status: Acute Assessment and Plan: Patient has a malignant-appearing low rectal mass near the anal verge found on colonoscopy today. This is too low for general surgery to manage. He will need referral to colorectal surgery for evaluation. This can be done as an outpatient once he is stable for discharge. I discussed this with the patient and will have our office send a referral to [facility] per the patient's request. We will sign off. Please let us know if there are any other surgical questions or concerns. (2) Type 2 diabetes mellitus without complications: Code(s): E11.9 - Type 2 diabetes mellitus without complications Status: Chronic (3) Chronic anemia: Code(s): D64.9 - Anemia, unspecified Status: Acute (4) Essential (primary) hypertension: Code(s): I10 - Essential (primary) hypertension Status: Chronic (5) Painless rectal bleeding: Code(s): K62.5 - Hemorrhage of anus and rectum Status: Acute Assessment and Plan: One episode of bright red blood per rectum prior to admission. Colonoscopy showed no active bleeding, but oozing after contact with the scope. Hgb stable. Plan I have discussed the patient's case and plan of care with Dr. Arndt. History of Present Illness Consult details Consult date: 12/16/24 Reason for consult: other (Rectal cancer) Requesting physician: Uday Park MD Narrative: This is a 79-year-old man with history of vascular dementia, GI bleed secondary to NSAIDs and duodenal ulcer, lymphoma 2019 diagnosed after bx of lymph node s/p chemotherapy with rituxan in remission, chronic anemia, diabetes, and multiple other co-morbidities, who we have been asked to see in surgical consultation for rectal cancer. He presented to the ED for rectal bleeding yesterday. He reports one episode of bright red blood following a formed BM. Last colonoscoyp was April 2023 with only findings of diverticulosis and internal hemorrhoids. He presented to the ED. Labs showed a hgb 11.7. GI consulted and performed a colonoscopy today, which showed a 3.5 x 4 cm protruding malignant-appearing rectal mass that is near the anal verge. Biopsies were taken. Our service was then consulted for the suspected rectal cancer. He is now seen on the medical floor. Review of Systems Review of Systems: All systems reviewed & are unremarkable except as noted in HPI and below PMFSH Past Medical History Medical History Abnormal CT scan, colon COPD (chronic obstructive pulmonary disease) CHF (congestive heart failure) Vascular dementia Cerebral infarction Incisional hernia s/p repair, 2019 Hemorrhoids GI bleed due to NSAIDs Acute blood loss anemia Duodenal ulcer (~2019) Colon polyps Benign prostatic hyperplasia Dyslipidemia Essential hypertension Marginal zone lymphoma Treated with chemotherapy at [facility] in [place] per Dr. Gresham. Chronic anemia Ganglion cyst of joint of finger of left hand Type 2 diabetes mellitus without complications Surgical History Surgical History History of incisional hernia repair laparoscopic repair of multiple incisional hernia with 25x20 cm Symbotex mesh 09/17/19 History of transurethral resection of prostate Wound dehiscence, traumatic injury repair (~01/2019) Repair of abdominal wound fascial dehiscence with evisceration. Status post exploratory laparotomy (~12/2018) With excisional biopsy of periaortic and periportal lymphadenopathy, histology showing marginal zone lymphoma. Family History Family History Father Acute myocardial infarction Sibling Cerebrovascular accident Family history of malignant neoplasm of brain Mother Family history of congestive heart failure Sibling Lung cancer Social History Social History Social History: The patient is and lives in his own home in [place]. He has 3 biological children and 2 step children. 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 He is a lifelong nonsmoker and denies alcohol and drug abuse. He designates his daughter, Brisa Brunner, as his surrogate decision maker and he wishes to be a full code. Smoking packs per day: 0.5 Smoking cigarettes per day: 10.0 Years smoked: 50 Smoking pack-years: 25.00 Smoking status: Never smoker Tobacco type: cigarettes Second hand tobacco smoke exposure: No Alcohol intake: never Substance use: never Substance use type: does not use Do You Feel Safe in your Home?: Yes Lack of Transportation: No Lack of Food: Never True Current Housing: I Have Housing Concerned About Future Housing: No Difficulty Paying Gas/Electric Bills: No Difficulty Paying for Meds: No Currently Unemployed: No Education: Decline to Answer Difficulty w/ Childcare or Family Care: No Living arrangements: alone Occupation/Education: occupation Additional occupation/education comments: 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 [employer] Gender identity (if verbalized by the patient): Male Spiritual care concerns: No Agree to blood products: Yes Meds Home Medications and Allergies Home Medications ?Medication ?Instructions ?Recorded ?Confirmed ?Type blood sugar diagnostic #10 ea 03/26/19 12/15/24 History lancets 33 gauge (OneTouch Delica #100 ea 03/26/19 12/15/24 History Lancets) atenolol 50 mg tablet (Tenormin) 50 mg PO DAILY #90 tabs 03/11/24 12/15/24 Rx pioglitazone 45 mg tablet See Rx Instructions .Route 05/08/24 12/15/24 Rx .COMPLEX #90 tabs glimepiride 2 mg tablet 1 mg (1/2 x 2 mg) PO BID #180 tabs 05/09/24 12/15/24 Rx losartan 50 mg tablet See Rx Instructions .Route 06/18/24 12/15/24 Rx .COMPLEX #90 tabs atorvastatin 10 mg tablet 10 mg PO DAILY #90 tabs 07/07/24 12/15/24 Rx omeprazole 20 mg capsule,delayed 20 mg PO BID #180 caps 07/07/24 12/15/24 Rx release donepezil 5 mg tablet 10 mg (2 x 5 mg) .Route .COMPLEX 09/01/24 12/15/24 Rx #90 tabs escitalopram oxalate 10 mg tablet 10 mg PO DAILY #90 tabs 09/01/24 12/15/24 Rx (Lexapro) trazodone 50 mg tablet 50 mg PO QHS #90 tabs 09/01/24 12/15/24 Rx metformin 500 mg tablet 1,000 mg (2 x 500 mg) PO BID #360 09/08/24 12/15/24 Rx tabs thiamine HCl (vitamin B1) 50 mg 50 mg PO DAILY #90 tabs 09/15/24 12/15/24 Rx tablet ketorolac 10 mg tablet 10 mg PO Q8H PRN pain 5 days #20 09/18/24 12/15/24 Rx tabs mirtazapine 15 mg tablet 15 mg PO HS 12/15/24 12/15/24 History Allergies Allergy/AdvReac Type Severity Reaction Status Date / Time No Known Allergies Allergy Verified 12/16/24 10:21 Vital Signs Vital Signs - 24 hr 12/15/24 15:21 12/15/24 16:31 12/15/24 18:04 Temperature Pulse Rate 93 85 Respiratory Rate 18 18 Blood Pressure 160/86 H 165/89 H 162/88 H Pulse Oximetry 97 96 99 Oxygen Delivery Room Air 12/15/24 18:04 12/15/24 19:00 12/15/24 20:24 Temperature 98.2 F Pulse Rate 78 81 78 Respiratory Rate 18 16 20 Blood Pressure 162/88 H 172/94 H 169/92 H Pulse Oximetry 99 99 97 Oxygen Delivery 12/15/24 21:22 12/16/24 05:23 12/16/24 08:00 Temperature 97.8 F 98.1 F Pulse Rate 76 80 Respiratory Rate 18 16 Blood Pressure 165/90 H 158/77 H Pulse Oximetry 96 97 Oxygen Delivery Room Air 12/16/24 10:28 12/16/24 11:01 12/16/24 11:11 Temperature 97.2 F L Pulse Rate 84 79 79 Respiratory Rate 18 23 H 24 H Blood Pressure 183/92 H 165/90 H 171/90 H Pulse Oximetry 96 100 100 Oxygen Delivery Room Air Room Air Room Air 12/16/24 11:21 Temperature Pulse Rate 76 Respiratory Rate 17 Blood Pressure 172/88 H Pulse Oximetry 98 Oxygen Delivery Room Air Exam Const: General: comfortable and no acute distress Nutritional Appearance: average body habitus Orientation/consciousness: patient oriented x3 HENMT: Head: normocephalic and atraumatic Ears: hearing grossly normal bilaterally Mouth: Yes moist mucous membranes Eyes: General: appearance normal, both eyes and all related structures Pupils: Equal, round and reactive pupils present Neck: Neck: normal visual inspection and full ROM Resp: Effort & Inspection: no respiratory distress Auscultation: clear to auscultation bilaterally Cardio: Rate: regular rate Rhythm: regular rhythm Peripheral pulses: Peripheral pulses 2+ throughout GI: Inspection: non-distended GI Palp: Yes Soft to palpation, No Tenderness to palpation present (GI), No Guarding due to palpation present (GI) and No Rebound tenderness present Auscultation: normal bowel sounds Rectal Exam: deferred Skin: General skin exam: normal color Neuro: General: moves all extremities and no focal motor deficits Speech: normal speech Motor exam (neuro): 5/5 motor strength present throughout Extrem: General: normal to inspection and no edema Psych: Mental Status: mental status grossly normal Attitude: cooperative Insight: Good insight present (Psych) Judgement: Good judgement present (Psych) Results Labs 12/16/24 02:03 12/16/24 02:03 Labs: Abnormal lab results 12/15/24 12/15/24 12/15/24 Range/Units 13:13 18:36 23:41 RBC 3.51 L (4.6-6.20) M/mm3 Hgb 11.7 L 10.2 L (14.0-18.0) g/dL Hct 36.2 L 31.4 L (42.0-52.0) % MCV 103.1 H (80-100) fl RDW 14.6 H (11.5-14.5) % Neut % (Auto) 84.1 H (45.5-73.1) % Lymph % (Auto) 4.9 L (18.3-44.2) % [place] % (Auto) (2.6-8.5) % Lymph # (Auto) 0.43 L (0.9-3.2) K/mm3 [place] # (Auto) 0.7 H (0.1-0.6) K/mm3 Abs Immat Gran (auto) 0.04 H (0.00-0.031) K/mm3 Absolute Neuts (auto) 7.4 H (1.3-6.7) K/mm3 Sodium 133 L (137-145) mmol/L BUN 40 H D (9-20) mg/dL Creatinine (0.7-1.3) mg/dL Glucose 130 H (65-110) mg/dL POC Capillary Glucose 154 H (65-105) mg/dl 12/16/24 12/16/24 Range/Units 02:03 11:34 RBC 3.28 L (4.6-6.20) M/mm3 Hgb 10.9 L (14.0-18.0) g/dL Hct 32.8 L (42.0-52.0) % MCV (80-100) fl RDW (11.5-14.5) % Neut % (Auto) 81.1 H (45.5-73.1) % Lymph % (Auto) 4.5 L (18.3-44.2) % [place] % (Auto) 9.6 H (2.6-8.5) % Lymph # (Auto) 0.25 L (0.9-3.2) K/mm3 [place] # (Auto) (0.1-0.6) K/mm3 Abs Immat Gran (auto) (0.00-0.031) K/mm3 Absolute Neuts (auto) (1.3-6.7) K/mm3 Sodium 133 L (137-145) mmol/L BUN 24 H D (9-20) mg/dL Creatinine 0.57 L (0.7-1.3) mg/dL Glucose 177 H (65-110) mg/dL POC Capillary Glucose 121 H (65-105) mg/dl Diabetes panel 12/15/24 12/16/24 Range/Units 13:13 02:03 Sodium 133 L 133 L (137-145) mmol/L Potassium 4.2 3.8 (3.4-5.0) mmol/L Chloride 98 100 (98-107) mmol/L Carbon Dioxide 28 29 (22-30) mmol/L BUN 40 H D 24 H D (9-20) mg/dL Creatinine 0.76 0.57 L (0.7-1.3) mg/dL Glucose 130 H 177 H (65-110) mg/dL Calcium 9.5 9.0 (8.4-10.2) mg/dL AST 22 (17-59) U/L ALT 18 (6-50) U/L Alkaline Phosphatase 88 (38-126) U/L Total Protein 6.5 (6.3-8.2) g/dL Albumin 4.1 (3.5-5.1) g/dL Calcium panel 12/15/24 12/16/24 Range/Units 13:13 02:03 Calcium 9.5 9.0 (8.4-10.2) mg/dL Albumin 4.1 (3.5-5.1) g/dL Pituitary panel 12/15/24 12/16/24 Range/Units 13:13 02:03 Sodium 133 L 133 L (137-145) mmol/L Potassium 4.2 3.8 (3.4-5.0) mmol/L Chloride 98 100 (98-107) mmol/L Carbon Dioxide 28 29 (22-30) mmol/L BUN 40 H D 24 H D (9-20) mg/dL Creatinine 0.76 0.57 L (0.7-1.3) mg/dL Glucose 130 H 177 H (65-110) mg/dL Calcium 9.5 9.0 (8.4-10.2) mg/dL Adrenal panel 12/15/24 12/16/24 Range/Units 13:13 02:03 Sodium 133 L 133 L (137-145) mmol/L Potassium 4.2 3.8 (3.4-5.0) mmol/L Chloride 98 100 (98-107) mmol/L Carbon Dioxide 28 29 (22-30) mmol/L BUN 40 H D 24 H D (9-20) mg/dL Creatinine 0.76 0.57 L (0.7-1.3) mg/dL Glucose 130 H 177 H (65-110) mg/dL Calcium 9.5 9.0 (8.4-10.2) mg/dL Total Bilirubin 0.4 (0.2-1.3) mg/dL AST 22 (17-59) U/L ALT 18 (6-50) U/L Alkaline Phosphatase 88 (38-126) U/L Total Protein 6.5 (6.3-8.2) g/dL Albumin 4.1 (3.5-5.1) g/dL All other labs normal. Imaging Additional studies: ITS Impressions Abdomen/Pelvis CT 12/15/24 16:12 IMPRESSION: Soft tissue density in the rectum measuring 3.8 x 3.3 cm may represent stool however mass cannot be entirely excluded. Clinically indicated follow-up colonoscopy can be done for further evaluation.
--- NOTE | 2024-12-16 16:04 | PM.IMPN ---
Progress Note: A&P Assessment and Plan (1) Painless rectal bleeding: Code(s): K62.5 - Hemorrhage of anus and rectum Status: Acute Assessment and Plan: Patient presented on 12/15 with painless rectal bleeding following a formed bowel movement earlier same morning of presentation. Poor historian due to history of vascular dementia. Reportedly has been intermittent for XX. Denies associated abdominal pain, fever, chills. Last colonoscopy in 2023 which showed diverticulosis and internal hemorrhoids, otherwise normal exam. CT of the abdomen/pelvis completed in the emergency department on 12/15 at which showed a soft tissue density in the rectum measuring 3.8 x 3.3 cm (may represent stool, however mass cannot be excluded). - GI consulted, plan for colonoscopy tomorrow morning on 12/16 - prep, clear liquid diet, NPO at midnight - monitor H&H hg 10.9 today trend labs (2) Type 2 diabetes mellitus without complications: Code(s): E11.9 - Type 2 diabetes mellitus without complications Status: Chronic Assessment and Plan: History of type 2 diabetes on oral medications. - hypoglycemia protocol - POC blood glucose ACHS - home medication: pioglitazone, metformin, glimepiride - correct regimen ordered - low dose TIDWM, based off BMI - A1C 6.8% on 09/08/2024 (3) Essential (primary) hypertension: Code(s): I10 - Essential (primary) hypertension Status: Chronic Assessment and Plan: - chronic, currently 172/94, stable. - hold home medications including losartan and atenolol as the patient will undergo a procedure tomorrow, resume when appropriate - hydralazine p.r.n. for BP greater than 180/90 - monitor (4) Dementia: Qualifiers: Dementia type: vascular dementia Dementia severity: mild Dementia behavioral or psychological symptom: without behavioral, psychotic, or mood disturbance or anxiety Qualified Code(s): F01.A0 - Vascular dementia, mild, without behavioral disturbance, psychotic disturbance, mood disturbance, and anxiety Code(s): F03.90 - Unspecified dementia, unspecified severity, without behavioral disturbance, psychotic disturbance, mood disturbance, and anxiety Status: Chronic Assessment and Plan: History of vascular dementia, A&Ox4 upon admission. - continue home medications post procedure: Donepezil Plan Diet: Clear liquid, NPO midnight GI Prophylaxis: N/a DVT Prophylaxis: SCDs IV fluids: 125 mL/hour Lines/Tubes: Peripheral IV Code Status: Full code Time Spent With Patient Time with patient: 25 - 35 minutes Subjective Date/time seen: 12/16/24 16:04 Interval history: 79 y/o M with PMH of vascular dementia, CVA, GI bleed secondary to NSAIDs, duodenal ulcer, BPH, dyslipidemia, hypertension, lymphoma s/p chemotherapy, chronic anemia, and diabetes presents with rectal bleeding. The patient presents here from home with his daughter on 12/15 for further evaluation of rectal bleeding. Patient had 1 episode of rectal bleeding following a formed bowel movement that was noted this morning, described as bright red blood. He reports he has not had any prior bright red blood per rectum or dark tarry stools. BRBPR is also accompanied by in increase in frequency of bowel movements and occasional bowel incontinence x1w, new for patient. He has a GI history significant for a large duodenal ulcer (2019), diverticulosis and internal hemorrhoids. The patient reports he is not currently on anticoagulation. He denies any associated abdominal pain, fever, chills, or body aches. Last colonoscopy in 2023 which showed diverticulosis, small nonbleeding internal hemorrhoids, and otherwise normal exam that did not require biopsies/specimens. Initial VS at presentation: Now 98.2? F, HR 71, R 16, 161/87, and 95% on RA. ED workup showed: No leukocytosis, hemoglobin 11.7, normal coags, sodium 133, creatinine 0.76 and GFR >60, glucose 130, and UA unremarkable. CT of the abdomen/pelvis showed a soft tissue density in the rectum measuring 3.8 x 3.3 cm, may represent stool however mass cannot be entirely excluded. pt is seen and examined. surgery is consulted- awaiting recommendations. Exam Const: General: comfortable and no acute distress HENMT: Face/Nose/Sinus: Normal nares present Mouth: Yes moist mucous membranes Eyes: General: appearance normal, both eyes and all related structures Sclera: sclerae normal Pupils: Equal, round and reactive pupils present EOM: EOMs intact bilaterally Resp: Effort & Inspection: normal respiratory effort Auscultation: clear to auscultation bilaterally Cardio: Rate: regular rate Rhythm: regular rhythm Other: S1-S2 present without murmur, rub, ectopy GI: Other: Abdomen soft, nondistended, nontender. Normoactive bowel sounds in all quadrants. Skin: General skin exam: normal color and no rashes or lesions noted Wounds: no wounds Neuro: Cranial nerves: Yes Equal, round and reactive pupils present Speech: normal speech Motor exam (neuro): 5/5 motor strength present throughout Sensory Exam: normal sensation Other: A&O x4 Extrem: General: normal to inspection Psych: Mental Status: mental status grossly normal Affect: normal affect Other: Good insight and judgment, pleasant Objective Data Vital Signs Vital Signs: Vital Signs - 24 hr 12/15/24 16:31 12/15/24 18:04 12/15/24 18:04 Temperature Pulse Rate 85 78 Respiratory Rate 18 18 Blood Pressure 165/89 H 162/88 H 162/88 H Pulse Oximetry 96 99 99 Oxygen Delivery Room Air 12/15/24 19:00 12/15/24 20:24 12/15/24 21:22 Temperature 98.2 F 97.8 F Pulse Rate 81 78 76 Respiratory Rate 16 20 18 Blood Pressure 172/94 H 169/92 H 165/90 H Pulse Oximetry 99 97 96 Oxygen Delivery 12/16/24 05:23 12/16/24 08:00 12/16/24 10:28 Temperature 98.1 F 97.2 F L Pulse Rate 80 84 Respiratory Rate 16 18 Blood Pressure 158/77 H 183/92 H Pulse Oximetry 97 96 Oxygen Delivery Room Air Room Air 12/16/24 11:01 12/16/24 11:11 12/16/24 11:21 Temperature Pulse Rate 79 79 76 Respiratory Rate 23 H 24 H 17 Blood Pressure 165/90 H 171/90 H 172/88 H Pulse Oximetry 100 100 98 Oxygen Delivery Room Air Room Air Room Air 12/16/24 13:49 Temperature 96.4 F L Pulse Rate 94 Respiratory Rate 18 Blood Pressure 169/73 H Pulse Oximetry 98 Oxygen Delivery Intake/Output Intake/Output: Intake & Output 12/13/24 12/14/24 12/15/24 12/16/24 23:59 23:59 23:59 23:59 Intake Total 3072 Output Total 2 Balance 3070 Meds/Results Medications: Active Medications Generic Name Dose Route Start Last Admin Trade Name Freq PRN Reason Stop Dose Admin Acetaminophen 650 mg 12/15/24 19:21 Acetaminophen 325 Mg Tablet PO Q4H PRN Mild Pain (1-3) or Fever Dextrose 12.5 gm 12/15/24 19:21 Dextrose 50% 25 Gm/50 Ml Syringe IV PUSH PRN PRN Hypoglycemia Protocol Glucagon 1 mg 12/15/24 19:21 Glucagon For Inj 1 Mg Vial IM PRN PRN Hypoglycemia Protocol Glucose 15 gm 12/15/24 19:21 Glucose Oral Gel 15 Gm Of Glucse In 37.5 Gm Tube PO PRN PRN Hypoglycemia Protocol Hydralazine HCl 10 mg 12/15/24 22:11 Hydralazine Hcl 20 Mg/Ml Vial IV PUSH Q8H PRN Blood Pressure - High, >180/90 Sodium Chloride 1,000 mls @ 125 mls/hr 12/15/24 19:15 12/16/24 08:22 Normal Saline Iv IV CONT 125 mls/hr .Q8H [place] Administration Dextrose 1,000 mls @ 100 mls/hr 12/15/24 19:21 Dextrose 5% 1,000 Ml IVPB PRN PRN Hypoglycemia Protocol Insulin Aspart 2 - 5 units 12/16/24 08:00 12/16/24 12:19 Insulin Aspart (*Bkc) 100 Units/Ml SUB-Q Not Given TIDWM [place] Protocol Magnesium Citrate 180 ml 12/15/24 19:53 12/16/24 01:36 Magnesium Citrate 300 Ml Btl PO 180 ml ONCE PRN Administration if patient has not produced BM Ondansetron HCl 4 mg 12/15/24 19:21 Ondansetron Inj 4 Mg/2 Ml Vial IV PUSH Q6H PRN Nausea And Vomiting Radiology Results: ITS Impressions Abdomen/Pelvis CT 12/15/24 16:12 IMPRESSION: Soft tissue density in the rectum measuring 3.8 x 3.3 cm may represent stool however mass cannot be entirely excluded. Clinically indicated follow-up colonoscopy can be done for further evaluation. Labs Labs: Laboratory Results - last 24 hr 12/15/24 12/15/24 12/15/24 18:36 22:36 23:41 WBC RBC Hgb 10.2 L Hct 31.4 L MCV MCH MCHC RDW Plt Count MPV Immature Gran % (Auto) Neut % (Auto) Lymph % (Auto) [place] % (Auto) Eos % (Auto) Baso % (Auto) Lymph # (Auto) [place] # (Auto) Eos # (Auto) Baso # (Auto) Abs Immat Gran (auto) Absolute Neuts (auto) Absolute Nucleated RBC Band Neutrophils % Nucleated RBC % Platelet Estimate Anisocytosis Microcytosis Ovalocytes [place] Cells Schistocytes Sodium Potassium Chloride Carbon Dioxide Anion Gap BUN Creatinine Estim Creat Clear Calc Estimated GFR Glucose POC Capillary Glucose 68 154 H Calcium 12/16/24 12/16/24 12/16/24 02:03 07:16 10:17 WBC 5.6 RBC 3.28 L Hgb 10.9 L Hct 32.8 L MCV 100.0 MCH 33.2 MCHC 33.2 RDW 14.4 Plt Count 211 MPV 9.0 Immature Gran % (Auto) 0.2 Neut % (Auto) 81.1 H Lymph % (Auto) 4.5 L [place] % (Auto) 9.6 H Eos % (Auto) 4.1 Baso % (Auto) 0.5 Lymph # (Auto) 0.25 L [place] # (Auto) 0.5 Eos # (Auto) 0.2 Baso # (Auto) 0.0 Abs Immat Gran (auto) 0.01 Absolute Neuts (auto) 4.6 Absolute Nucleated RBC 0.000 Band Neutrophils % Not Reportable Nucleated RBC % 0.0 Platelet Estimate Adequate Anisocytosis 1+ Microcytosis 1+ Ovalocytes Occasional [place] Cells Occasional Schistocytes None seen Sodium 133 L Potassium 3.8 Chloride 100 Carbon Dioxide 29 Anion Gap 4 BUN 24 H D Creatinine 0.57 L Estim Creat Clear Calc 74 Estimated GFR > 60 Glucose 177 H POC Capillary Glucose 86 103 Calcium 9.0 12/16/24 11:34 WBC RBC Hgb Hct MCV MCH MCHC RDW Plt Count MPV Immature Gran % (Auto) Neut % (Auto) Lymph % (Auto) [place] % (Auto) Eos % (Auto) Baso % (Auto) Lymph # (Auto) [place] # (Auto) Eos # (Auto) Baso # (Auto) Abs Immat Gran (auto) Absolute Neuts (auto) Absolute Nucleated RBC Band Neutrophils % Nucleated RBC % Platelet Estimate Anisocytosis Microcytosis Ovalocytes [place] Cells Schistocytes Sodium Potassium Chloride Carbon Dioxide Anion Gap BUN Creatinine Estim Creat Clear Calc Estimated GFR Glucose POC Capillary Glucose 121 H Calcium Quality VTE Prophylaxis VTE prophylaxis: mechanical ordered
[2024-12-16] MEDS: INSULIN ASPART (*BKC) 100 UNITS/ML SUB-Q (17:05)
[2024-12-17 04:33] VITALS: BP 164/86; PULSE 85; RESP 20; TEMP 36.8; O2SAT 94
[2024-12-17] MEDS: SODIUM CHLORIDE 0.9% IV 1,000 ML 125 ML IV CONT (05:24)
[2024-12-17 06:02] LABS: Hematocrit 31.7 % (42.0-52.0); Hemoglobin 10.5 g/dL (14.0-18.0); Mean Corpuscular HGB Conc 33.1 g/dl (32-36); Mean Corpuscular Hemoglobin 32.8 pg (26-34); Mean Corpuscular Volume 99.1 fl (80-100); Platelet Count Result 211 k/mm3 (150-375); Red Blood Count 3.20 M/mm3 (4.6-6.20); White Blood Count 4.0 K/mm3 (4.5-10.0)
[2024-12-17 06:32] LABS: Anion Gap 1 mmol/L (4-12); Blood Urea Nitrogen 11 mg/dL (9-20); Calcium 8.2 mg/dL (8.4-10.2); Carbon Dioxide 32 mmol/L (22-30); Chloride 100 mmol/L (98-107); Estimated CRCL calculation 71 ml/min; Estimated Glomerular Filt Rate > 60; Glucose 104 mg/dL (65-110); Potassium 3.6 mmol/L (3.4-5.0); Sodium 133 mmol/L (137-145)
[2024-12-17] MEDS: INSULIN ASPART (*BKC) 100 UNITS/ML SUB-Q ×2 (08:11→12:17)
--- NOTE | 2024-12-17 13:56 | P.DS_ITS ---
DS: Admitting Diagnosis Discharge Date 12/17/2024 Admitting Diagnosis painless rectal bleeding rectal mass type 2 dm htn dementia DS: Discharge Diagnosis Discharge Diagnosis (1) Painless rectal bleeding: Code(s): K62.5 - Hemorrhage of anus and rectum Status: Acute (2) Rectal mass: Code(s): K62.89 - Other specified diseases of anus and rectum Status: Acute (3) Type 2 diabetes mellitus without complications: Code(s): E11.9 - Type 2 diabetes mellitus without complications Status: Chronic (4) Essential (primary) hypertension: Code(s): I10 - Essential (primary) hypertension Status: Chronic (5) Dementia: Qualifiers: Dementia behavioral or psychological symptom: without behavioral, psychotic, or mood disturbance or anxiety Dementia severity: mild Dementia type: vascular dementia Qualified Code(s): F01.A0 - Vascular dementia, mild, without behavioral disturbance, psychotic disturbance, mood disturbance, and anxiety Code(s): F03.90 - Unspecified dementia, unspecified severity, without behavioral disturbance, psychotic disturbance, mood disturbance, and anxiety Status: Chronic DS: Summary Hospital Course Reason for hospitalization: painless rectal bleeding rectal mass type 2 dm htn dementia Hospital Course: 79 y/o M with PMH of vascular dementia, CVA, GI bleed secondary to NSAIDs, duode nal ulcer, BPH, dyslipidemia, hypertension, lymphoma s/p chemotherapy, chronic anemia, and diabetes presents with rectal bleeding. Hemoglobin remained stable throughout admission. CT showed Soft tissue density in the rectum measuring 3.8 x 3.3 cm may represent stool however mass cannot be entirely excluded. GI consulted. Patient underwent a colonoscopy on 12/16 which showed diverticulosis, no active bleeding, colonic polyps, and a malignant-appearing rectal mass. GI consulted surgery for the rectal mass. Per surgery the mass is too low for General surgery to manage thus they referred patient to Colorectal surgery at [facility]. Prior to discharge patient stated that the rectal bleeding had subsided. He denies any chest pain, shortness a breath, palpitations, nausea/vomiting, abdominal pain, and dizziness/lightheadedness. Prior to discharge patient was able to ambulate independently without assistive device approximately 50 ft. Discharge order was placed at 1354. Vitals obtained following the discharge order being placed showed a systolic of 190. I was not informed prior to patient leaving the hospital of these vital signs. Patients antihypertensives had been resumed on discharge and discussed with him to follow up with PCP. Patient discharged home in a stable condition. He is to follow up with his primary care provider in 1 week and the specialties as scheduled. Status at Discharge Functional status at discharge: independent ambulation Time Spent with Patient Time attestation: Total time spent providing and/or coordinating discharge services: Time spent: Greater than 30 minutes Exam Narrative: AF HR 85 RR 20 Spo2 94 BP 164/86 General: male in no acute respiratory distress who is nontoxic appearing, sitting up on side of bed and ambulating throughout the room HEENT: Normocephalic. Atraumatic.Extraocular movement intact. Sclera clear and anicteric. No facial asymmetry. Chest: Lungs are clear to auscultation bilaterally. No wheezes or crackles. CV: Heart was regular rate and rhythm. S1/S2. No murmurs, gallops, or rubs. Abd: Abdomen was soft. Nontender. Nondistended. Positive bowel sounds. Ext: No clubbing, cyanosis, or edema. DP pulses bilaterally. Neuro: Patient is alert and oriented x4. Strength is 5/5 in both upper and lower extremities. Speech is clear. DS: Data Data Completed and Pending Completed studies during hospitalization: ct abdomen/pelvis Pending studies at discharge: Pending at discharge 12/16/24 10:57 Surgical [PTH] Routine Labs on day of discharge: Labs from last 24 hours 12/17/24 12/17/24 12/17/24 11:49 08:07 05:40 WBC 4.0 L RBC 3.20 L Hgb 10.5 L Hct 31.7 L MCV 99.1 MCH 32.8 MCHC 33.1 RDW 14.2 Plt Count 211 MPV 9.1 Sodium 133 L Potassium 3.6 Chloride 100 Carbon Dioxide 32 H Anion Gap 1 L BUN 11 D Creatinine 0.60 L Estim Creat Clear Calc 71 Estimated GFR > 60 Glucose 104 POC Capillary Glucose 283 H 236 H Calcium 8.2 L 12/16/24 16:06 WBC RBC Hgb Hct MCV MCH MCHC RDW Plt Count MPV Sodium Potassium Chloride Carbon Dioxide Anion Gap BUN Creatinine Estim Creat Clear Calc Estimated GFR Glucose POC Capillary Glucose 207 H Calcium Discharge Plan Discharge Attending physician on discharge: Amadou Ordonez Consulting providers: Uday Park; Angela Barron Discharging Clinician: Angela Barron Anticipated Discharge Date/Time: 12/17/24 13:44 Patient Disposition: Home Activity: as tolerated Diet: as tolerated and heart healthy Discharge Instructions: Discharge disposition: Patient admitted to the hospital for rectal bleeding Underwent colonoscopy with GI which showed no active bleeding Eat well balanced meals and do not over hydrate Keep active Keep an eye on your stool, should your stool be black or dark purple, you should come back to the hospital Follow up with GI, call for an appointment During colonoscopy a large mass was noted that is concerning for malignancy Surgery evaluated and a referral to [facility] was sent Monitor blood pressures Take caution while standing, rising, or moving Change positions slowly taking a break between each position change If you standing feel dizzy sit back down and take a break Encouraged to continue with yearly vaccinations Return to the emergency department if he developed sudden shortness of breath, chest pain, nausea, vomiting, upset stomach or intractable diarrhea Return to the emergency department if you develop fever greater than 100.5 Follow-up with the primary care physician within 1-2 weeks Thank you for [facility] for your healthcare needs Patient Instructions: Rectal Bleeding (DC) Patient Language: French Stand Alone Forms: General Discharge Information Follow-up/Referrals: Uday Park MD [Physician, Gastroenterology] - Call for Appointment UNKNOWN,DOCTOR [Primary Care Provider] - 1 Week Jude Arndt DO [Physician, General Surgery] - Call for Appointment Discharge Medications: Continued trazodone 50 mg tablet 50 mg PO QHS Qty: 90 1RF escitalopram oxalate [Lexapro] 10 mg tablet 10 mg PO DAILY Qty: 90 1RF donepezil 5 mg tablet 10 mg .Route .COMPLEX Qty: 90 3RF Rx Instructions: start with 1 tablet daily morning for 1 month and then 2 tablets or 10 mg to continue metformin 500 mg tablet 1,000 mg PO BID Qty: 360 1RF mirtazapine 15 mg tablet 15 mg PO HS (DME) lancets [OneTouch Delica Lancets] 33 gauge misc See Rx Instructions .ROUTE .MEDSUPPLY Qty: 100 Rx Instructions: As directed (DME) blood sugar diagnostic Strip See Rx Instructions .ROUTE .MEDSUPPLY Qty: 10 Rx Instructions: As directed atenolol [Tenormin] 50 mg tablet 50 mg PO DAILY Qty: 90 1RF pioglitazone 45 mg tablet See Rx Instructions .ROUTE .COMPLEX Qty: 90 1RF Dose Instruction: TAKE 1 TABLET BY MOUTH EVERY DAY Rx Instructions: TAKE 1 TABLET BY MOUTH EVERY DAY glimepiride 2 mg tablet 1 mg PO BID Qty: 180 0RF losartan 50 mg tablet See Rx Instructions .ROUTE .COMPLEX Qty: 90 1RF Dose Instruction: TAKE 1 TABLET BY MOUTH EVERY DAY Rx Instructions: TAKE 1 TABLET BY MOUTH EVERY DAY atorvastatin 10 mg tablet 10 mg PO DAILY Qty: 90 1RF thiamine HCl (vitamin B1) 50 mg tablet 50 mg PO DAILY Qty: 90 1RF Held ketorolac 10 mg tablet 10 mg PO Q8H PRN (Reason: pain) 5 Days Qty: 20 0RF Hold Instructions: Resume on 01/03/25. Hold until follow up with PCP. Rx Instructions: maximum total duration of 5 days from all oral, intranasal, or parenteral formulations Discontinued omeprazole 20 mg capsule,delayed release(DR/EC) 20 mg PO BID Qty: 180 1RF Date of admission: 12/16/24 17:48 Primary Care Provider: UNKNOWN,DOCTOR Admitting Provider: Tyler Nevarez Attending physician on admission: Tyler Nevarez Condition: Stable Hospitalist MIPS Heart Failure (Exclusion) Patient has history of Heart Transplant or Left Ventricular Assistive Device?: No IF YES, STOP HERE Heart Failure (Qualifier) Patient has current or prior documentation of LVEF less than or equal to 40%, or mod/servere depressed LVSF?: No IF NO, STOP HERE
[2024-12-17 14:00] VITALS: BP 193/90; PULSE 89; RESP 16; TEMP 36.4; O2SAT 96
[2024-12-17 14:14] VITALS: PULSE 85
[2024-12-17] MEDS: ESCITALOPRAM OXALATE 10 MG TABLET PO (14:14)
[2024-12-17] MEDS: LOSARTAN POTASSIUM 50 MG TABLET PO (14:14)
[2024-12-17] MEDS: ATORVASTATIN 10 MG TABLET PO (14:14)
--- NOTE | 2024-12-17 15:49 | WPDGIPROGNO ---
Progress Note: A&P Assessment and Plan (1) Rectal mass: Code(s): K62.89 - Other specified diseases of anus and rectum Status: Acute Assessment and Plan: bx showed high grade dysplasia, endoscopically is compatible with rectal cancer and large size patient will be referred to see colorectal surgery- general surgery not comfortable to operate given lesion is near anus (2) Painless rectal bleeding: Code(s): K62.5 - Hemorrhage of anus and rectum Status: Acute (3) Chronic anemia: Code(s): D64.9 - Anemia, unspecified Status: Acute (4) Abnormal CT scan, colon: Code(s): R93.3 - Abnormal findings on diagnostic imaging of other parts of digestive tract Status: Acute (5) Diabetes mellitus with renal manifestation: Code(s): E11.29 - Type 2 diabetes mellitus with other diabetic kidney complication Status: Acute Subjective Date/time seen: 12/17/24 14:46 Interval history: no events, he is going home today Review of Systems Review of Systems: All systems reviewed & are unremarkable except as noted in HPI and below Exam Const: General: comfortable and no acute distress HENMT: Face/Nose/Sinus: Normal nares present Eyes: General: appearance normal, both eyes and all related structures Neck: Neck: supple Resp: Auscultation: clear to auscultation bilaterally Cardio: Rate: regular rate Rhythm: regular rhythm GI: Inspection: non-distended GI Palp: Yes Soft to palpation and No Tenderness to palpation present (GI) Auscultation: normal bowel sounds Skin: General skin exam: normal color Neuro: Speech: normal speech Extrem: General: normal to inspection Psych: Mental Status: mental status grossly normal Objective Data Vital Signs Vital Signs: Vital Signs - 24 hr 12/16/24 19:48 12/16/24 21:00 12/17/24 04:33 Temperature 98.4 F 98.3 F Pulse Rate 84 84 85 Respiratory Rate 20 20 20 Blood Pressure 164/94 H 164/86 H Pulse Oximetry 98 98 94 Oxygen Delivery Room Air 12/17/24 08:00 12/17/24 14:00 12/17/24 14:14 Temperature 97.6 F Pulse Rate 89 85 Respiratory Rate 16 Blood Pressure 193/90 H Pulse Oximetry 96 Oxygen Delivery Room Air Intake/Output Intake/Output: Intake & Output 10/1212/15/24 12/16/24 12/17/24 23:59 23:59 23:59 23:59 Intake Total 4962.4 1630 Output Total 2 Balance 4960.4 1630 Meds/Results Radiology Results: ITS Impressions Abdomen/Pelvis CT 12/15/24 16:12 IMPRESSION: Soft tissue density in the rectum measuring 3.8 x 3.3 cm may represent stool however mass cannot be entirely excluded. Clinically indicated follow-up colonoscopy can be done for further evaluation. Labs Labs: Laboratory Results - last 24 hr 12/16/24 12/17/24 12/17/24 16:06 05:40 08:07 WBC 4.0 L RBC 3.20 L Hgb 10.5 L Hct 31.7 L MCV 99.1 MCH 32.8 MCHC 33.1 RDW 14.2 Plt Count 211 MPV 9.1 Sodium 133 L Potassium 3.6 Chloride 100 Carbon Dioxide 32 H Anion Gap 1 L BUN 11 D Creatinine 0.60 L Estim Creat Clear Calc 71 Estimated GFR > 60 Glucose 104 POC Capillary Glucose 207 H 236 H Calcium 8.2 L 12/17/24 11:49 WBC RBC Hgb Hct MCV MCH MCHC RDW Plt Count MPV Sodium Potassium Chloride Carbon Dioxide Anion Gap BUN Creatinine Estim Creat Clear Calc Estimated GFR Glucose POC Capillary Glucose 283 H Calcium
== END 2024-12-17 14:30 | disposition home or self-care (01) | DRG 375 ==
LOC: ANHED 19:13 → ANH3MEDSUR 20:02
PROVIDERS: Emergency Medicine; Internal Medicine Gastroenterology; Nurse Practitioner; Student in an Organized Health Care Education/Training Program; Admitting Provider General Practice; Emergency Provider Registered Nurse; Visit Provider Student in an Organized Health Care Education/Training Program
PROC: 0DJD8ZZ Inspection of Lower Intestinal Tract, Via Natural or Artificial Opening Endoscopic (ICD-10-PCS; CPT 45378; principal; 2024-12-16 14:30)
DX: C20 Malignant neoplasm of rectum (principal); K62.5 Hemorrhage of anus and rectum; K62.89 Other specified diseases of anus and rectum; E11.9 Type 2 diabetes mellitus without complications; F01.50 Vascular dementia, unspecified severity, without behavioral disturbance, psychotic disturbance, mood disturbance, and anxiety; N40.0 Benign prostatic hyperplasia without lower urinary tract symptoms; E78.5 Hyperlipidemia, unspecified; I50.9 Heart failure, unspecified; K57.30 Diverticulosis of large intestine without perforation or abscess without bleeding; K63.5 Polyp of colon; D64.9 Anemia, unspecified; J44.9 Chronic obstructive pulmonary disease, unspecified; F17.210 Nicotine dependence, cigarettes, uncomplicated; Z85.72 Personal history of non-Hodgkin lymphomas; Z86.73 Personal history of transient ischemic attack (TIA), and cerebral infarction without residual deficits
CPT/HCPCS: 36415; 74177; 80048; 80053; 81003; 82948; 85014; 85018; 85025; 85027; 85610; 85730; 86850; 86900; 86901; 88305; 96374; 99285; A9270; G0378; J1815; J2003; J2470; J2704; J7030; J7120; Q9967

== ENCOUNTER 2024-12-25 14:34 | Outpatient (CLI) | payer MEDICARE, MEDICAID, SELFPAY ==
--- OUTSIDE RECORDS SUMMARY | 2024-12-25 15:45 | XMS_ITS | Encounter Summary ---
Author Organization [facility] Address [address] [place] [address] Phone Care Team Providers Care Pot Room Tapper Name Role Phone Kun Oconnor MD Primary Care Provider [phone] Chace Newman DO Primary Care Provider [phone] Srini Smith MD Unavailable [phone] oCurtney Pitt ARCHITECTURAL SUPERINTENDENT Primary Care Provider [phone] Lucía Navarro DO Primary Care Provider [phone] Encounter Details Date Type Department Care Team (Latest Contact Info) Description 07/21/2019 Orders Only [facility] Scanning, Provider Social History Tobacco Use Types Packs/Day Years Used Date Smoking Tobacco: Never Smokeless Tobacco: Never Sex and Gender Information Value Date Recorded Sex Assigned at Not on file Legal Sex Male 7:49 AM SUPPLY PERSON Gender Identity Not on file Sexual Orientation [...] on filedocumented in this encounter Care Teams Pot Room Tapper Relationship Specialty Start Date End Date Kun Oconnor MD [address] [place] [address] PCP - General 12/29/16 04/03/22 Chace Newman DO [address] [place], [place] [id number] PCP - General Family Medicine 04/04/22 09/16/24 Courtney Pitt NP [address] [place] [address] [address] [place], [place] [id number] PCP - General Internal Medicine 09/17/24 12/16/24 Lucía Navarro DO [address] [place] [address] [address] [place], [place] [id number] PCP - General Family Medicine 12/17/24 Srini Smith MD [address] [facility] MEDICAL ONCOLOGY, [facility] [address] [place] [address] Medical Oncologist/Pediatric Dentist Medical Oncology 04/07/22 documented as of this encounter
--- OUTSIDE RECORDS SUMMARY | 2024-12-25 15:45 | XMS_ITS | Encounter Summary ---
Author Organization [facility] Address [address] [facility] [place] [address] Care Team Providers Care Montessori Paraprofessional Name Role Phone Unavailable Primary Care Provider Unavailabl e Encounter Details Date Type Department Care Team (Late st Contact Info) Description 01/03/2019 Lab Requisition [facility] Care Pathology Lab [address] [place] [address] Mainor Zavaleta MD [address] [place] [address] Social History Tobacco Use Types Packs/Day [...] CDT) Case Report Surgical Pathology Report Case: [id number] Authorizing Provider: Mainor Zavaleta MD Collected: 01/01/2019 09:25 AM Ordering Location: [facility] Received: 01/03/2019 09:41 AM Pathologist: Lu King MD Specimen: Lymph Node Biopsy, [id number] 01/06/2019 11:46 AM SUPPLY CHAIN INTERN [facility] Final Diagnosis Lymph nodes, periportal aortic, excision: - Marginal zone lymphoma. - See description. 01/06/2019 11:46 AM [facility] at [address] SUPPLY CHAIN INTERN Microscopic Description and Comment Review of the [...] are performed on block B3 in the [facility] Department of Pathology, with appropriately reactive controls, and demonstrate the followings: CD20 and BCL-2 are positive in the neoplastic cells. CD3, CD5, CD10, CD23, CD43, cyclin D1, and MUM-1 are negative in the neoplastic cells. CD23 shows a few residual follicular dendritic cell meshworks that are colonized by neoplastic cells. Concurrent lymph node flow cytometry ([id number]) detects a CD5-negative, PR99-[id number] mature B-cell lymphoma. 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 Correlation with clinical findings and relevant cytogenetic/molecular testing is required. KR/MM 01/06/2019 11:46 AM [facility] Clinical History Lymphadenopathy. 01/06/2019 11:46 AM [facility] Materials Received Received from [facility], [place], [place] are 5 slides and 5 blocks labeled Konrad Nieto and [id number]. All original materials are returned along with a copy of our report. 01/06/2019 11:46 AM [facility] Disclaimer The performance characteristics of all immunohistochemical and indirect immunofluorescence stains (if any) cited in this report were determined by the Histopathology Laboratory of [facility]. Some of these tests were developed [...] interpretation of this case is performed by [facility] Pathology at [facility], [address] [place] [address]. 01/06/2019 11:46 AM [facility] Embedded Images 01/06/2019 11:46 AM [facility] Pathology/Cytolo gy BIOPSY OF LYMPH NODE / Unknown 01/01/2019 9:25 AM CDT 01/03/2019 9:41 AM CDT Mainor Zavaleta MD LAB - PATHOLOGY/CYTOLOGY ORDER ROMAIN Final Result [facility] PATHOLOGY LAB [address] [place] [address] documented in this encounter Visit Diagnoses Not on filedocumented in this encounter
--- OUTSIDE RECORDS SUMMARY | 2024-12-25 15:45 | XMS_ITS | Encounter Summary ---
Author Organization [facility] Address [address] [facility] [place] [address] Care Team Providers Care Solid Fiber Paster Operator Name Role Phone Unavailable Primary Care Provider Unavailabl e Encounter Details Date Type Department Care Team (Late st Contact Info) Description 01/01/2019 Lab Requisition [facility] Care Pathology Lab [address] [place] [address] Mainor Zavaleta MD [address] [place] [address] Enlarged lymph nodes, unspecified Social History [...] AM CDT) Case Report Flow Cytometry Case: [id number] Authorizing Provider: Mainor Zavaleta MD Collected: 01/01/2019 08:24 AM Ordering Location: [facility] Care Pathology Lab Received: 01/01/2019 12:16 PM Pathologist: Omkar Houston MD Specimen: Lymph Node, ANNA PORTAL AORTIC LYMPH NODE 9 11:50 AM CDT [facility] Final Diagnosis Lymph node, periportal aortic, flow cytometric immunophenotypic analysis: - CD5-negative, [id number]-[id number] mature B-cell lymphoma. - See interpretation. 9 11:50 AM [facility] at 1150 CDT Flow [...] the flow cytometry specimen is reviewed for construction quality control manager purposes. Overall, the periportal aortic lymph node shows an evidence of involvement by CD5-negative, [id number] mature B-cell lymphoma. Correlation with clinical findings and concurrent tissue biopsy ([id number]) is required. 9 11:50 AM [facility] Flow Cytometry Results Differential Result Comment Flow Cell Count /uL 114,000 Total Viability % 79.0 Lymphocytes % 98 Dim CD45 Region % 1 Monocytes % 0 Granulocytes % 1 9 11:50 AM [facility] Reason for test Enlarged lymph nodes , unspecified 9 11:50 AM [facility] Client Specimen ID # [id number] 9 11:50 AM [facility] Number of markers 16 were performed. A-2 Flow CD3 A-4 Flow CD10 A-6 Flow CD20 A-7 Flow CD23 A-12 Flow CD2 A-13 Flow CD4 A-16 Flow CD1a A-3 Flow CD5 A-5 Flow CD19 A-8 Flow CD34 A-9 Flow CD45 A-14 Flow CD7 A-15 Flow CD8 A-17 Flow CD30 A-10 Haiku-Pauwela+CD19+ A-11 Lambda+CD19+ 9 11:50 AM [facility] Disclaimer Test performed at [facility], [address] [place] [address], [address]. *The established laboratory minimum viability is 70%. [...] complexity clinical testing. 9 11:50 AM CDT [facility] PATH[facility] Embedded Images 9 11:50 AM CDT [facility] Pathology/Cytolo gy ENTIRE LYMPH NODE / Unknown 01/01/2019 8:24 AM CDT 01/01/2019 12:16 PM CDT Mainor Zavaleta MD LAB - PATHOLOGY/CYTOLOGY ORDER ROMAIN Final Result [facility] LAB [address] [phone] documented in this encounter Visit Diagnoses Diagnosis Enlarged lymph nodes, unspecified documented in this encounter
--- OUTSIDE RECORDS SUMMARY | 2024-12-25 15:45 | XMS_ITS ---
Author Organization [facility] 2 Address [address] [facility] [place] [address] Care Team Providers Care Surgical Instrument Repair Specialist Name Role Phone Srini Smith MD Unavailable [phone] Lucía Navarro DO Primary Care Provider [phone] Active Problems Problem Noted Date Diagnosed Date Pneumonia 04/05/2022 Assessment & Plan (04/06/2022 12:28 PM SENIOR APPLICATIONS ARCHITECT): Pt presented with productive cough and malaise. [...] 04/05/2022 Assessment & Plan (04/05/2022 7:59 AM SENIOR APPLICATIONS ARCHITECT): - Home losartan and atenolol Elevated HDL 04/05/2022 Assessment & Plan (04/05/2022 8:01 AM SENIOR APPLICATIONS ARCHITECT): - Home atorvastatin Diabetes mellitus type 2 without retinopathy Assessment & Plan (10/01/2019 9:02 AM CDT): -- No background diabetic retinopathy (LIFE SCIENCES MANAGER) -- No neovascularization of the disc [...] (CMS/HCC) Assessment & Plan (04/06/2022 12:29 PM SENIOR APPLICATIONS ARCHITECT): - s/p Rituxan x4 () - Now with PD with likely left kidney involvement - BR x6C held in setting of infection, restart once infection resolved - Follow up with Dr Smith outpt Type 2 diabetes mellitus without complication Encounter for colonoscopy du e to history of adenomatous colonic polyps 04/16/2018 Overview (04/16/2018): Added automatically from request for surgery [id number] Ganglion of hand 01/16/2017 Current Treatment and [...] Smith MD 6 of 6 cycles started [id number] - [facility] - Lymphoma - ILyAD - RiTUXimab [...] 04/06/2022 Assessment & Plan (04/06/2022 12:29 PM SENIOR APPLICATIONS ARCHITECT): SpO2 down to 88%. On 2L O2. Likely 2/2 pna - Manage pna as elsewhere - Clinically improving with antibiotics. Wean O2 as tolerated Hyponatremia 04/05/2022 04/06/2022 Assessment & Plan (04/05/2022 1:09 PM SENIOR APPLICATIONS ARCHITECT): Na 1344 -> 139. 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
--- OUTSIDE RECORDS SUMMARY | 2024-12-25 15:45 | XMS_ITS | Encounter Summary ---
Author Organization [facility] Address [address] [place] [address] Phone Care Team Providers Care Mine Surveyor Name Role Phone Kun Oconnor MD Primary Care Provider [phone] Chace Newman DO Primary Care Provider [phone] Srini Smith MD Unavailable [phone] Courtney Pitt HOME APPLIANCE TECHNICIAN Primary Care Provider [phone] Lucía Navarro DO Primary Care Provider [phone] Encounter Details Date Type Department Care Team (Latest Contact Info) Description 07/18/2019 Orders Only [facility] Scanning, Provider Social History Tobacco Use Types Packs/Day Years Used Date Smoking Tobacco: Never Smokeless Tobacco: Never Sex and Gender Information Value Date Recorded Sex Assigned at Not on file Legal Sex Male 7:49 AM JANITOR CARETAKER Gender Identity Not on file Sexual Orientation [...] on filedocumented in this encounter Care Teams Mine Surveyor Relationship Specialty Start Date End Date Kun Oconnor MD [address] [place] [address] PCP - General 12/29/16 04/03/22 Chace Newman DO [address] [place], [place] [address] PCP - General Family Medicine 04/04/22 09/16/24 Courtney Pitt NP [address] [place] [place] [address] [address] [place], [place] [id number] PCP - General Internal Medicine 09/17/24 12/16/24 Lucía Navarro DO [address] [place] [address] [address] [place], [place] [address] PCP - General Family Medicine 12/17/24 Srini Smith MD [address] [facility], [facility] [address], [address] [place] [address] Medical Oncologist/Needle Straightener Medical Oncology 04/07/22 documented as of this encounter
--- OUTSIDE RECORDS SUMMARY | 2024-12-25 15:45 | XMS_ITS | Encounter Summary ---
Author Organization [facility] Address [address] [place] [address] Phone Care Team Providers Care Restaurant Crew Member Name Role Phone Kun Oconnor MD Primary Care Provider [phone] Chace Newman DO Primary Care Provider [phone] Srini Smith MD Unavailable [phone] Courtney Pitt QUALITY CONTROL MANAGER Primary Care Provider [phone]- [phone] Lucía Navarro DO Primary Care Provider [phone]- [phone] Encounter Details Date Type Department Care Team (Latest Contact Info) Description 07/19/2019 Orders Only [facility] Scanning, Provider Social History Tobacco Use Types Packs/Day Years Used Date Smoking Tobacco: Never Smokeless Tobacco: Never Sex and Gender Information Value Date Recorded Sex Assigned at Not on file Legal Sex Male 7:49 AM COW TRIMMER Gender Identity Not on file Sexual Orientation [...] on filedocumented in this encounter Care Teams Restaurant Crew Member Relationship Specialty Start Date End Date Kun Oconnor MD [address] [place] [address] PCP - General 12/29/16 04/03/22 Chace Newman DO [address] [place], [place] [address] PCP - General Family Medicine 04/04/22 09/16/24 Courtney Pitt NP [address] [place] [address] [address] [place], [place] [address] PCP - General Internal Medicine 09/17/24 12/16/24 Lucía Navarro DO [address] [place] [address] [address] [place], [place] [address] PCP - General Family Medicine 12/17/24 Srini Smith MD [address] [facility], [facility] [address], [address], [address] [place] [address] Medical Oncologist/Setup Operator Medical Oncology 04/07/22 documented as of this encounter
--- OUTSIDE RECORDS SUMMARY | 2024-12-25 15:45 | XMS_ITS | Clinical Summary ---
Author Organization [facility] 2 Address [address] [facility] [place] [address] Care Team Providers Care Mirror Polisher Name Role Phone Srini Smith MD Unavailable [phone] Lucía Navarro DO Primary Care Provider [phone] Allergies Active Allergy Reactions Criticality Noted Date [...] TABLET BY MOUTH NIGHTLY 90 tablet 3 12/09/19 25 Active mirtazapine (REMERON) 15 mg tabletIndicati ons:Weight loss Take 1 tablet (15 mg total) by mouth nightly 90 tablet 2 04/04/19 24 025 Discontinued Active Problems Problem Noted Date Diagnosed Date Pneumonia 04/05/2022 Assessment & Plan (04/06/2022 12:28 PM QUILL PICKING MACHINE OPERATOR): Pt presented with productive cough [...] 04/05/2022 Assessment & Plan (04/05/2022 7:59 AM QUILL PICKING MACHINE OPERATOR): - Home losartan and atenolol Elevated HDL 04/05/2022 Assessment & Plan (04/05/2022 8:01 AM QUILL PICKING MACHINE OPERATOR): - Home atorvastatin Diabetes mellitus type 2 without retinopathy Assessment & Plan (10/01/2019 9:02 AM CDT): -- 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) -- No neovascularization of the disc (NVD), [...] (CMS/HCC) Assessment & Plan (04/06/2022 12:29 PM QUILL PICKING MACHINE OPERATOR): - s/p Rituxan x4 () - Now with PD with likely left kidney involvement - BR x6C held in setting of infection, restart once infection resolved - Follow up with Dr Smith outpt Type 2 diabetes mellitus without complication Encounter for colonoscopy du e to history of adenomatous colonic polyps 04/16/2018 Overview (04/16/2018): Added automatically from request for surgery [id number] Ganglion of hand 01/16/2017 Resolved Problems Problem Noted Date Diagnosed Date Resolved Date Acute respiratory failure with hypoxia 04/05/2022 04/06/2022 Assessment & Plan (04/06/2022 12:29 PM QUILL PICKING MACHINE OPERATOR): SpO2 down to 88%. On 2L O2. Likely 2/2 pna - Manage pna as elsewhere - Clinically improving with antibiotics. Wean O2 as tolerated Hyponatremia 04/05/2022 04/06/2022 Assessment & Plan (04/05/2022 1:09 PM QUILL PICKING MACHINE OPERATOR): Na 1344 -> 139. 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/03/2022 023 Assessment & Plan (04/05/2022 7:53 AM QUILL PICKING MACHINE OPERATOR): - s/p Rituxan x4 () - Now with PD with likely left kidney involvement - BR x6C held in setting of infection, restart once infection resolved - Follows with Dr Smith Encounters Date Type Department Care Team Description 12/02/2024 Telephone [facility] Care [address] [id number] Cherelle Oakley MA Chart Review (Med adherence) 11/10/2024 ACO Medication Access [address] [id number] Carie Jonas CPhT 10/06/[address] [phone] Mary Riley MA Chart Review ([facility] med rec) from Last 3 Months Immunizations Immunization Administration [...] on file Legal Sex Male 7:49 AM QUILL PICKING MACHINE OPERATOR Gender Identity Not on file [...] Fall Risk Assessment 04/23/2024 04/23/2023 Covid-19 Vaccine (2024-2 6 season) 2024 12/08/2021, 06/25/2021, 11/30/2020, Additional history exists Influenza Vaccine (#1) 2024 , 12/07/2022, 12/01/2022, Additional history exists eGFR 09/17/2025 09/17/2024, [...] lymphoma (CMS/HCC) (HCC) COLONOSCOPY 04/23/2023 2:53 PM QUILL PICKING MACHINE OPERATOR HEMOGLOBIN A1C STAT 04/04/2022 1:00 AM QUILL PICKING MACHINE OPERATOR LIPID PANEL STAT 04/04/2022 1:00 AM QUILL PICKING MACHINE OPERATOR HEPATITIS C ANTIBODY Routine 01/22/2019 2:22 PM QUILL PICKING MACHINE OPERATOR Ace marginal zone B-cell lymphoma [...] LAB BLOOD ORDERABLES Final R esult KATHARINE [facility] Department [place] [address] * Colonoscopy (04/23/2023 2:53 PM QUILL PICKING MACHINE OPERATOR) Anatomical Region Laterality Modality Other Narrative Procedure Note Radha Shaw MD - 04/23/2023 2:53 PM [facility] Patient Name: Konrad Nieto Procedure Date: 04/23/2023 2:53 PM Date of : 1945 Admit Type: Outpatient Age: 77 Gender: Male Attending MD: Radha Shaw M.D. Room: [facility] ENDOSCOPY ROOM 9 Note Status: Finalized [...] scope was passed under direct vision.The CF [id number] endoscope was introduced through the anus [...] On: 04/23/2023 2:53 PM Recognized by the [employer] for promoting quality in endoscopy us Radha Shaw MD ENDOSCOPY PROCEDURES Final Res ult * (ABNORMAL) Hemoglobin A1c (04/04/2022 1:00 AM QUILL PICKING MACHINE OPERATOR) Hgb A1C 7.9(H) 4.0 - [...] a fasting glucose. Blood 04/04/2022 1:00 AM QUILL PICKING MACHINE OPERATOR 04/04/2022 1:45 AM QUILL PICKING MACHINE OPERATOR us Srini Smith MD LAB BLOOD ORDERABLES Final R esult [facility] Department [place] [address] * Lipid panel (04/04/2022 1:00 AM QUILL PICKING MACHINE OPERATOR) Cholesterol 94 30 - 199 mg/dL KATHARINE [...] revised on 2017. Triglycerides 51 <=149 mg/dL [facility] Comment: Interpretive Data Ages < [...] revised on 2017. HDL 53 >=40 mg/dL [facility] Comment: Interpretive Data Ages < [...] on 2017. LDL, calculated 31 <=129 mg/dL [facility] Comment: Interpretive Data Ages < [...] revised on 2017. Non-HDL Cholesterol 41 mg/dL [facility] Comment: Interpretive Data Ages < [...] last revised on 2017. Chol/HDL ratio [address] [facility] Blood 04/04/2022 1:00 AM QUILL PICKING MACHINE OPERATOR 04/04/2022 1:42 AM QUILL PICKING MACHINE OPERATOR us Srini Smith MD LAB BLOOD ORDERABLES Final R esult Performing Organization Address City/[facility]/ZIP Co de Phone Number [facility] Department [place] [address] * Hepatitis C antibody (01/22/2019 2:22 PM QUILL PICKING MACHINE OPERATOR) Hep C Ab Nonreactive Nonreactive [facility] Comment: Interpretive Data Positive results should be confirmed by a molecular method. If positive, a second separately collected sample should be submitted for Hepatitis C Virus (HCV) RNA Detection and Quantitation by Real-Time Reverse Converter Skimmer-PCR (RT-PCR). Current interpretive data was last revised on 2016. Blood specimen (specimen) 01/22/2019 2:22 PM QUILL PICKING MACHINE OPERATOR 01/22/2019 2:35 PM QUILL PICKING MACHINE OPERATOR us Annie donald NP LAB MICROBIOLOGY - GENERAL ORDERABLES Edited Result - Final Performing Organization Address City/[facility]/ZIP Co de Phone Number [facility] Department [place] [address] from Last 3 Months or Most Recently Relevant to Health Maintenance Insurance [facility] MEDICARE ADVANTAGE Member Subscriber Plan / Payer (Ef fective 2023-Present) Name:Gerson Konrad Zac Relation to Subscriber:Self Name:Konrad Nieto Zac Payer ID:[id number] (NAIC) Type:[facility] MEDICARE Address: [place] [id number] UHC MEDICARE ADVANTAGE Member Subscriber Plan / Payer (Ef fective 2023-Present) Name:Konrad Nieto Relation to Subscriber:Self Name:Konrad Nieto Payer ID:[id number] (NAIC) Type:[facility] MEDICARE Address: [place] [phone] Advance Directives For more information, please contact: [phone] * Full Code (Latest Code Status on File) Date Activated Date Inactivated Comments 04/23/2023 3:07 PM 04/23/2023 8:55 PM * Full Code Date Activated Date Inactivated Comments 04/03/2022 11:40 PM 04/06/2022 9:40 PM * Full Code Date Activated Date Inactivated Comments 04/26/2018 6:57 AM 04/26/2018 1:31 PM Care Teams Mirror Polisher Relationship Specialty Start Date End Date Lucía Navarro DO [address] [place] [address] [address] [place] [address] PCP - General Family Medicine 12/17/24 Srini Smith MD [address] [facility], [facility] [address], [address] [place] [address] Medical Oncologist/Pier Runner Medical Oncology 04/07/22
--- OUTSIDE RECORDS SUMMARY | 2024-12-25 15:45 | XMS_ITS | Clinical Summary ---
Author Organization [facility] Address [address] [place] [address] Care Team Providers Care Ortho Nurse Name Role Phone Unavailable Primary Care Provider Unavailabl e Source Comments [facility],non-owned Affiliates and Associated Physician Practices is amultiple site organization consisting of ambulatory clinics and hospital sitesin [place], [place], [place] and [place]. This disclosure is being madepursuant to the Care Everywhere program and may not contain all information available regarding this patient. Last updated 17.[facility] [place] Social History Tobacco Use Types Packs/Day Years [...] patient's age to complete this topic Insurance [facility] MANAGED MEDICARE ADV MEDICAID [place] SELF PAY NO INSURANCE Member Subscriber Plan / Payer (Ef fective for All Dates) Name:Konrad Johnson Member ID:Not on file Relation to Subscriber:Not on file Name:KONRAD JOHNSON Subscriber ID:Not on file (Home) Address: [address] [place] [address] Payer ID:Not on file Group ID:Not on file Type:Self Pay Address: [place], [place]
[2024-12-25 18:30] LABS: Iron 52 ug/dL (49-181)
[2024-12-25 18:39] LABS: Percent Iron Saturation 14 % (20-50)
[2024-12-25 18:53] LABS: Albumin Level 4.4 g/dL (3.5-5.1); Alkaline Phosphatase 86 U/L (38-126); Anion Gap 7 mmol/L (4-12); Bilirubin,Total 0.4 mg/dL (0.2-1.3); Blood Urea Nitrogen 29 mg/dL (9-20); Calcium 9.7 mg/dL (8.4-10.2); Carbon Dioxide 31 mmol/L (22-30); Chloride 96 mmol/L (98-107); Estimated Glomerular Filt Rate > 60; Glucose 127 mg/dL (65-110); Sodium 134 mmol/L (137-145); Total Protein 6.9 g/dL (6.3-8.2)
[2024-12-25 18:59] LABS: Hematocrit 36.4 % (42.0-52.0); Hemoglobin 11.6 g/dL (14.0-18.0); Immature Granulocyte Percent A 0.2 % (0-0.5); Lymphocytes Absolute Auto 0.38 K/mm3 (0.9-3.2); Mean Corpuscular HGB Conc 31.9 g/dl (32-36); Mean Corpuscular Hemoglobin 32.4 pg (26-34); Mean Corpuscular Volume 101.7 fl (80-100); Nucleated Red Blood Cells Absolute Auto 0.000 K/mm3 (0.0-0.012); Nucleated Red Blood Cells Perc 0.0 % (0.0-0.2); Platelet Count Result 307 k/mm3 (150-375); Red Blood Count 3.58 M/mm3 (4.6-6.20); White Blood Count 5.9 K/mm3 (4.5-10.0)
[2024-12-25 19:02] LABS: Total Protein Urine Random 10 mg/dL; Ur Ttl Prot Creatinine Ratio 0.12 mg/mg (0-0.20)
[2024-12-25 19:04] LABS: Alanine Aminotransferase 12 U/L (6-50); Aspartate Amino Transferase 20 U/L (17-59); Magnesium 1.5 mg/dL (1.6-2.3); Potassium 3.4 mmol/L (3.4-5.0)
[2024-12-25 20:25] LABS: Ferritin 39.60 ng/mL (11.1-264)
[2024-12-26 15:09] LABS: Albumin 3.7 g/dL (2.9-4.4); Alpha-1-Globulin 0.3 g/dL (0.0-0.4); Alpha-2-Globulin 0.9 g/dL (0.4-1.0); Gamma Globulin 0.3 g/dL (0.4-1.8)
[2024-12-26 18:08] LABS: ANA by IFA Rfx Titer/Pattern Negative (.)
[2024-12-29 14:08] LABS: Albumin, U 35.1 % (.); Alpha-1-Globulin, U 3.0 % (.); Alpha-2-Globulin, U 20.1 % (.); Beta Globulin, U 23.0 % (.); Gamma Globulin, U 18.8 % (.)
[2024-12-29 15:09] LABS: Immunoglobulin A, Qn 37 mg/dL (61-437); Immunoglobulin G, Qn 367 mg/dL (603-1613); Immunoglobulin M, Qn 51 mg/dL (15-143)
[2024-12-29 21:07] LABS: Anti-GBM Antibodies <0.2 units (0.0-0.9)
[2024-12-30 13:09] LABS: Immunofixation (IFE), Urine Comment: (.)
== END 2024-12-25 14:35 | disposition home or self-care (01) ==
LOC: ANHGOSHLAB 14:36
PROVIDERS: Internal Medicine Nephrology; PCP Family Medicine; Visit Provider Nurse Practitioner Family
DX: E11.29 Type 2 diabetes mellitus with other diabetic kidney complication (principal); R80.9 Proteinuria, unspecified; I10 Essential (primary) hypertension; D64.9 Anemia, unspecified
CPT/HCPCS: 36415; 80053; 82570; 82728; 82784; 83540; 83550; 83735; 84155; 84156; 84165; 84166; 85025; 86037; 86038; 86160; 86225; 86334; 86335; 86364

== ENCOUNTER 2025-01-03 13:08 | Inpatient (IN) | payer MEDICARE, MEDICAID, SELFPAY ==
[2025-01-03] VITALS (10 sets, daily range): BP systolic 134–152; BP diastolic 65–72; PULSE 70–102; RESP 16–21; TEMP 36.4–37.1; O2SAT 91–98; BMI 16.9
--- NOTE | ~2025-01-03 | XR_ITS ---
EXAMINATION: XR chest 1V portable COMPARISON: No comparisons available. HISTORY: WEAKNESS FINDINGS: The lungs are clear, no effusion. No pneumothorax. Heart is normal size. Mediastinal and hilar contours are within normal limits. Bony thorax no acute abnormality. Miscellaneous: None Impression: No acute cardiopulmonary abnormality. Reviewed, dictated and finalized at location P. Impression: No acute cardiopulmonary abnormality.
--- NOTE | ~2025-01-03 | CT_ITS ---
EXAMINATION: CTA chest PE protocol, 01/03/2025 15:00 CDT HISTORY: shortness of breath, recent CA dx, tachycardia COMPARISON: No comparisons available. TECHNIQUE: CTA examination is obtained with contrast CTA examination technique is performed with arterial phase of contrast-enhancement. 3-D reconstruction with thin MIP axial and MPR coronal imaging is provided Isovue 300, 92cc injected IV. One or more of the following dose reduction techniques were used: automated exposure control, adjustment of the mA and/or kV according to patient size, use of iterative reconstruction technique. FINDINGS: No significant coronary calcification is present ([id number]) LUNGS: The contrast bolus is adequate, there is no pulmonary embolism identified. No tracheomalacia. No bronchiectasis. Moderate emphysematous changes. Mild pulmonary fibrotic changes. Focal scarring noted bilaterally. No honeycombing is evident. HEART AND PERICARDIUM: Within normal limits. AORTA: Normal caliber aorta.. PULMONARY ARTERIES: No pulmonary embolism ADENOPATHY/MEDIASTINUM: None. LIMITED VIEWS OF THE ABDOMEN: Nonspecific patulous appearance of the esophagus. OSSEOUS STRUCTURES: No sclerotic or lytic lesions. No acute fractures are identified. OVERLYING SOFT TISSUES: Unremarkable. THYROID: The thyroid is unremarkable. IMPRESSION: Negative for pulmonary embolism. No acute process Reviewed, dictated and finalized at location P.
--- NOTE | ~2025-01-03 | CT_ITS ---
EXAMINATION: CT abdomen pelvis wo aime, 01/03/2025 16:30 CDT HISTORY: r/o abdominal abscess COMPARISON: No comparisons available. TECHNIQUE: CT scan of the abdomen and pelvis was performed without IV contrast. One or more of the following dose reduction techniques were used: automated exposure control, adjustment of the mA and/or kV according to patient size, use of iterative reconstruction technique. Unless otherwise stated, incidental findings do not require dedicated follow up imaging FINDINGS: CT abdomen: LUNG BASES: Mild cardiomegaly. Trace pericardial effusion. Chronic changes in the visualized lung bases. LIVER: Right lobe liver simple appearing cyst 1 x 1 cm. SPLEEN: Unremarkable, no splenomegaly. KIDNEYS: Right Kidney: There is contrast within the right kidney from previous exam, no hydronephrosis. Left Kidney: There is contrast in the left kidney from previous exam, no hydronephrosis. Left kidney midpole simple cyst 2 x 2 cm. ADRENAL GLANDS: Thickening of the adrenal glands bilaterally. PANCREAS: Mild atrophy of the pancreas. GALLBLADDER/BILIARY: Unremarkable. No biliary dilatation. STOMACH AND ESOPHAGUS: The stomach appears decompressed. BOWEL/MESENTERY: Moderate fecal content. No colitis or diverticulitis. Appendix normal. Mesentery normal. No thickened or dilated loops of small bowel. ADENOPATHY/RETROPERITONEUM: No lymphadenopathy. AORTA/VASCULATURE: Atherosclerotic changes of the aorta. FREE FLUID OR FREE AIR: Minimal free fluid.. CT pelvis: SOLID ORGANS/REPRODUCTIVE: Prostate appears prominent, correlate with PSA. BLADDER: There is distention of the bladder with multiple bladder diverticula. OSSEOUS STRUCTURES: Severe loss of disc at L5-S1 with moderate to severe canal and foraminal stenosis no acute fracture or subluxation in the visualized spine. OVERLYING SOFT TISSUES: Mild probable anasarca in the soft tissues. IMPRESSION: 1. No acute intra-abdominal process, absence of intravenous contrast limits evaluation but there is no gross abscess identified 2. Incidental findings above. Correlate for bladder outlet obstruction Reviewed, dictated and finalized at location P. IMPRESSION: 1. No acute intra-abdominal process, absence of intravenous contrast limits milady luation but there is no gross abscess identified 2. Incidental findings above. Correlate for bladder outlet obstruction
--- NOTE | ~2025-01-03 | CT_ITS ---
EXAMINATION: CT brain oliverio salomon, 01/03/2025 16:30 CDT HISTORY: altered mental status COMPARISON: No comparisons available. Technique: Axial images obtained of the brain without contrast. One or more of the following dose reduction techniques were used: automated exposure control, adjustment of the mA and/or kV according to patient size, use of iterative reconstruction technique. Findings: There are remote bilateral basal ganglia lacunar infarcts, no acute infarct or hemorrhage. No midline shift or mass effect. No extra-axial fluid collections. Mastoid air cells unremarkable. Sinuses and orbits unremarkable. No acute fracture. No significant facial or scalp soft tissue swelling evident. No radiopaque foreign body is seen. Impression: 1.No acute intracranial abnormality. Reviewed, dictated and finalized at location P. Impression: 1.No acute intracranial abnormality.
--- NOTE | 2025-01-03 13:16 | ECG_ITS ---
Test Date: 2025-01-03 13:29:48 Measurements Intervals [place] Rate: 100 P: 70 LA: 142 QRS: 68 QRSD: 85 T: 79 QT: 357 QTc: 462 Interpretive Statements SINUS TACHYCARDIA POSSIBLE LEFT ATRIAL ENLARGEMENT [-0.1mV P WAVE IN V1/V2] NONSPECIFIC T-WAVE ABNORMALITY ABNORMAL RHYTHM ECG No previous ECG available for comparison Electronically Signed On 01-04-2025 13:19:17 MACHINE LOADER by Beka Oconnor M.D.
[2025-01-03 14:03] LABS: Add Urine Microscopic? YES; Appearance Urine Clear (Clear); Glucose Urine UA Negative (Negative); Leukocyte Esterase Ur Negative LEU/UL (Negative); Need Manual Microscopic Reviewed; Nitrate Urine Negative (Negative); Non Pathogenic Casts 0-2; Specific Grav Ur 1.014 (1.001-1.035)
[2025-01-03 14:06] LABS: Hematocrit 33.7 % (42.0-52.0); Hemoglobin 11.2 g/dL (14.0-18.0); Immature Granulocyte Percent A 0.8 % (0-0.5); Lymphocytes Absolute Auto 0.12 K/mm3 (0.9-3.2); Mean Corpuscular HGB Conc 33.2 g/dl (32-36); Mean Corpuscular Hemoglobin 32.9 pg (26-34); Mean Corpuscular Volume 99.1 fl (80-100); Nucleated Red Blood Cells Absolute Auto 0.000 K/mm3 (0.0-0.012); Nucleated Red Blood Cells Perc 0.0 % (0.0-0.2); Platelet Count Result 219 k/mm3 (150-375); Red Blood Count 3.40 M/mm3 (4.6-6.20); White Blood Count 8.5 K/mm3 (4.5-10.0)
[2025-01-03 14:16] LABS: INR 1.1; Partial Thromboplastin Time 26.4 Seconds (22.3-36.8); Prothrombin Time 14.5 Seconds (11.1-14.7)
--- NOTE | 2025-01-03 14:17 | ED_ITS ---
HPI - SOB/Dyspnea General Chief Complaint: Dizziness Stated Complaint: dizzy Time Seen by Provider: 01/03/25 14:05 History of Present Illness HPI Narrative: Patient is a 79-year-old male who presents to the ER with an episode of shaking and a near syncopal episode this morning. His daughter reports he has had increased shortness of breath that also started this morning. He was recently diagnosed with colorectal cancer but has not started treatment yet. Patient denies any recent cough, fevers, or acute abdominal pain. He endorses a history of diabetes, high blood pressure, and his medical chart indicates he has a history of Alzheimer's disease. Related Data Home Medications ?Medication ?Instructions ?Recorded ?Confirmed ?Last Taken ?Type blood sugar diagnostic #10 ea 03/26/19 12/25/24 Unk nown History lancets 33 gauge (OneTouch Delica #100 ea 03/26/19 Unknown History Lancets) mirtazapine 15 mg tablet 15 mg PO HS 12/15/24 5 12/14/24 History losartan 50 mg tablet 50 mg PO DAILY 12/25/2412/04 Unknown History pioglitazone 45 mg tablet 45 mg PO DAILY 12/25/2412/04 Unknown History Allergies Allergy/AdvReac Type Severity Reaction Status Date / Time No Known Allergies Allergy Verified 12/25/24 13:17 Review of Systems 2 Review of Systems: All systems reviewed & are unremarkable except as noted in HPI and below PMFSH Past Medical History Medical History Abnormal CT scan, colon COPD (chronic obstructive pulmonary disease) CHF (congestive heart failure) Vascular dementia Cerebral infarction Incisional hernia s/p repair, 2019 Hemorrhoids GI bleed due to NSAIDs Acute blood loss anemia Duodenal ulcer (~2019) Colon polyps Benign prostatic hyperplasia Dyslipidemia Essential hypertension Marginal zone lymphoma Treated with chemotherapy at [facility] in [place] per Dr. Gresham. Chronic anemia Ganglion cyst of joint of finger of left hand Type 2 diabetes mellitus without complications Surgical History Surgical History History of incisional hernia repair laparoscopic repair of multiple incisional hernia with 25x20 cm Symbotex mesh 09/17/19 History of transurethral resection of prostate Wound dehiscence, traumatic injury repair (~01/2019) Repair of abdominal wound fascial dehiscence with evisceration. Status post exploratory laparotomy (~12/2018) With excisional biopsy of periaortic and periportal lymphadenopathy, histology showing marginal zone lymphoma. Family History Family History Father Acute myocardial infarction Sibling Cerebrovascular accident Family history of malignant neoplasm of brain Mother Family history of congestive heart failure Sibling Lung cancer Social History Social History Social History: The patient is and lives in his own home in [place]. He has 3 biological children and 2 step children. 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 He is a lifelong nonsmoker and denies alcohol and drug abuse. He designates his daughter, Brisa Brunner, as his surrogate decision maker and he wishes to be a full code. Smoking packs per day: 0.5 Smoking cigarettes per day: 10.0 Years smoked: 50 Smoking pack-years: 25.00 Smoking status: Never smoker Tobacco type: cigarettes Second hand tobacco smoke exposure: No Alcohol intake: never Substance use: never Substance use type: does not use Do You Feel Safe in your Home?: Yes Lack of Transportation: No Lack of Food: Never True Current Housing: I Have Housing Concerned About Future Housing: No Difficulty Paying Gas/Electric Bills: No Difficulty Paying for Meds: No Currently Unemployed: No Education: Decline to Answer Difficulty w/ Childcare or Family Care: No Living arrangements: alone Occupation/Education: occupation Additional occupation/education comments: 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 [employer] Gender identity (if verbalized by the patient): Male Spiritual care concerns: No Agree to blood products: Yes Exam 2 Narrative: GENERAL: Ill-appearing, cachectic, non-toxic, in mild distress due to shortness of breath. HEAD: Normocephalic, atraumatic. NECK: Supple. No adenopathy, no masses. RESPIRATORY: Airway patent, mildly labored. Clear to auscultation bilaterally, no rales, rhonchi, wheezing. CARDIOVASCULAR: Regular rate and rhythm without murmurs, rubs, or gallops. Peripheral pulses 2+ and equal bilaterally. ABDOMINAL: Soft, nontender, nondistended, no hepatosplenomegaly. Normoactive BS. MUSCULOSKELETAL: Moves all extremities. Strength/ROM intact without gross deformities. SKIN: Warm, dry, normal color. No rashes. NEURO: A&O X3. Speech clear. Cranial nerves II-XII intact. No ataxic movements. PSYCHIATRIC: Appropriate mood and affect. Normal interaction. Course Vital Signs Vital signs: Vital Signs Temperature 36.4 C 01/03/25 13:07 Pulse Rate 98 01/03/25 13:07 Respiratory Rate 18 01/03/25 13:07 Blood Pressure 137/69 01/03/25 13:07 Pulse Oximetry 91 01/03/25 13:07 Oxygen Delivery Room Air 01/03/25 13:07 Temperature 36.4 C 01/03/25 13:07 Pulse Rate 91 01/03/25 15:53 Respiratory Rate 21 H 01/03/25 15:53 Blood Pressure 140/67 01/03/25 15:53 Pulse Oximetry 98 01/03/25 15:53 Oxygen Delivery Nasal Cannula 01/03/25 14:40 Oxygen Flow Rate 2 01/03/25 14:40 MDM - SOB/Dyspnea MDM Narrative Medical decision making narrative: Patient is a 79-year-old male who presents to the ER with an episode of shaking and a near syncopal episode this morning. His daughter reports he has had increased shortness of breath that also started this morning. He was recently diagnosed with colorectal cancer but has not started treatment yet. Patient denies any recent cough, fevers, or acute abdominal pain. He endorses a history of diabetes, high blood pressure, and his medical chart indicates he has a history of Alzheimer's disease. Labs Ordered: CBC, CMP, COVID/flu/RSV, UA, proBNP, magnesium, CRP, lactic acid Imaging Ordered: Chest x-ray, chest CTA, CT brain, CT abdomen pelvis w/o contrast (per hospitalist) Medications Ordered: 1.8 L normal saline, ceftriaxone 1 g IV, azithromycin 500 mg IV, magnesium IV Results: Patient's lactic acid was 4.2. His chemistry indicates a sodium of 136, BUN of 25, creatinine of 0.64, glucose of 221. Patient's magnesium is 1.3. His proBNP was 1120. Pt's CTA indicates No significant coronary calcification is present ([id number]) LUNGS: The contrast bolus is adequate, there is no pulmonary embolism identified. No tracheomalacia. No bronchiectasis. Moderate emphysematous changes. Mild pulmonary fibrotic changes. Focal scarring noted bilaterally. No honeycombing is evident. HEART AND PERICARDIUM: Within normal limits. AORTA: Normal caliber aorta.. PULMONARY ARTERIES: No pulmonary embolism ADENOPATHY/MEDIASTINUM: None. LIMITED VIEWS OF THE ABDOMEN: Nonspecific patulous appearance of the esophagus. OSSEOUS STRUCTURES: No sclerotic or lytic lesions. No acute fractures are identified. OVERLYING SOFT TISSUES: Unremarkable. THYROID: The thyroid is unremarkable. Diagnosis: Shortness of breath, new oxygen requirement, elevated lactic acid, near syncopal episode Patient Education/Shared MDM: Results of lab work and imaging shared with patient and his daughter. It was advised patient be admitted to the hospital for further evaluation and treatment. Patient and his family verbalized understanding and are in agreement with plan. 1600- Spoke with hospitalist, VICK Alberto, who was in agreement with plan for admission. Pt will be admitted to the med/surg floor with telemetry. Differential Diagnosis Differential diagnosis: Likely acute exacerbation of chronic obstructive airways disease, congestive heart failure, community acquired pneumonia, asthma with exacerbation and pulmonary embolism Lab Data Attestation: I reviewed the patient's lab results. 01/03/25 13:54 01/03/25 13:54 Labs: Lab Results 01/03/25 01/03/25 01/03/25 Range/Units 13:37 13:54 14:01 WBC 8.5 (4.5-10.0) K/mm3 RBC 3.40 L (4.6-6.20) M/mm3 Hgb 11.2 L (14.0-18.0) g/dL Hct 33.7 L (42.0-52.0) % MCV 99.1 (80-100) fl MCH 32.9 (26-34) pg MCHC 33.2 (32-36) g/dl RDW 14.6 H (11.5-14.5) % Plt Count 219 (150-375) k/mm3 MPV 9.2 (7.4-10.4) fl Immature Gran % (Auto) 0.8 H (0-0.5) % Neut % (Auto) 92.1 H (45.5-73.1) % Lymph % (Auto) 1.4 L (18.3-44.2) % [place] % (Auto) 4.7 (2.6-8.5) % Eos % (Auto) 0.5 (0-4.4) % Baso % (Auto) 0.5 (0.2-1.2) % Lymph # (Auto) 0.12 L (0.9-3.2) K/mm3 [place] # (Auto) 0.4 (0.1-0.6) K/mm3 Eos # (Auto) 0.0 (0-0.3) K/mm3 Baso # (Auto) 0.0 (0.0-0.1) K/mm3 Abs Immat Gran (auto) 0.07 H (0.00-0.031) K/mm3 Absolute Neuts (auto) 7.8 H (1.3-6.7) K/mm3 Absolute Nucleated RBC 0.000 (0.0-0.012) K/mm3 Nucleated RBC % 0.0 (0.0-0.2) % PT 14.5 (11.1-14.7) Seconds INR 1.1 APTT 26.4 (22.3-36.8) Seconds Sodium 136 L (137-145) mmol/L Potassium 3.5 (3.4-5.0) mmol/L Chloride 100 (98-107) mmol/L Carbon Dioxide 27 (22-30) mmol/L Anion Gap 9 (4-12) mmol/L BUN 25 H (9-20) mg/dL Creatinine 0.64 L (0.7-1.3) mg/dL Estim Creat Clear Calc 70 ml/min Estimated GFR > 60 (59 - ) Glucose 221 H (65-110) mg/dL Lactic Acid 4.2 H* (0.7-2.0) mmol/L Calcium 9.3 (8.4-10.2) mg/dL Magnesium 1.3 L (1.6-2.3) mg/dL Total Bilirubin 0.5 (0.2-1.3) mg/dL AST 23 (17-59) U/L ALT 17 (6-50) U/L Alkaline Phosphatase 67 (38-126) U/L Troponin I < 0.012 (0.000-0.034) ng/mL C-Reactive Protein < 0.5 (<1.0) mg/dL NT-Pro-B Natriuret Pep 1120 H (19.9-100) pg/mL Total Protein 6.0 L (6.3-8.2) g/dL Albumin 4.0 (3.5-5.1) g/dL Urine Color Yellow (Yellow) Urine Appearance Clear (Clear) Urine pH 5.5 (5.0-9.0) Ur Specific [place] 1.014 (1.001-1.035) Urine Protein Trace (Negative) mg/dL Urine Glucose (UA) Negative (Negative) mg/dL Urine Ketones Negative (Negative) mg/dL Ur Blood (Man) Negative (Negative) Urine Nitrate Negative (Negative) Urine Bilirubin Negative (Negative) Urine Urobilinogen 0.2 (<2.0) mg/dL Add Ur Microanalysis Reviewed Leukocyte Esterase Rfl Negative (Negative) MIRZA/UL Urine RBC 0-2 (0-2) /hpf Urine WBC 0-5 (0-3) /hpf Ur Squamous Epith Cells None seen (Few) /hpf Urine Bacteria None seen /hpf Urine Casts 0-2 Influenza A (RT-PCR) Negative (Negative) Influenza B (RT-PCR) Negative (Negative) RSV (RT-PCR) Negative (Negative) SARS-CoV-2 RNA (RT-PCR) Negative (Negative) Imaging Data Attestation: I personally reviewed and interpreted this imaging study as follows: Radiologist's impression: Impressions Chest X-Ray 01/03/25 14:08 Impression: No acute cardiopulmonary abnormality. Chest CTA 01/03/25 15:26 IMPRESSION: Negative for pulmonary embolism. No acute process Discharge Plan Discharge Clinical Impression: Shortness of breath, Elevated lactic acid level, Near syncope, Dehydration, mild Dementia Qualifiers: Dementia type: vascular dementia Dementia severity: mild Dementia behavioral or psychological symptom: without behavioral, psychotic, or mood disturbance or anxiety Qualified Code(s): F01.A0 - Vascular dementia, mild, without behavioral disturbance, psychotic disturbance, mood disturbance, and anxiety Patient Disposition: Still a Patient Condition: Stable Patient Language: Divehi Prescriptions: No Action trazodone 50 mg tablet 50 mg PO QHS Qty: 90 1RF escitalopram oxalate [Lexapro] 10 mg tablet 10 mg PO DAILY Qty: 90 1RF losartan 50 mg tablet 50 mg PO DAILY pioglitazone 45 mg tablet 45 mg PO DAILY atenolol [Tenormin] 50 mg tablet 50 mg PO DAILY Qty: 90 1RF metformin 500 mg tablet 1,000 mg PO BID Qty: 360 1RF mirtazapine 15 mg tablet 15 mg PO HS (DME) lancets [OneTouch Delica Lancets] 33 gauge misc See Rx Instructions .ROUTE .MEDSUPPLY Qty: 100 Rx Instructions: As directed (DME) blood sugar diagnostic Strip See Rx Instructions .ROUTE .MEDSUPPLY Qty: 10 Rx Instructions: As directed atorvastatin 10 mg tablet 10 mg PO DAILY Qty: 90 1RF thiamine HCl (vitamin B1) 50 mg tablet 50 mg PO DAILY Qty: 90 1RF glimepiride 2 mg tablet 1 mg PO BID Qty: 90 1RF ferrous sulfate 324 mg (65 mg iron) tablet,delayed release (DR/EC) 324 mg PO DAILY Qty: 90 1RF magnesium oxide 400 mg magnesium tablet 400 mg PO DAILY Qty: 7 0RF donepezil [Aricept] 10 mg tablet 10 mg PO DAILY Qty: 90 1RF Follow-up/Referrals: Lucía Navarro DO [Primary Care Provider, Family Practice]
[2025-01-03 14:29] LABS: Alanine Aminotransferase 17 U/L (6-50); Albumin Level 4.0 g/dL (3.5-5.1); Alkaline Phosphatase 67 U/L (38-126); Anion Gap 9 mmol/L (4-12); Aspartate Amino Transferase 23 U/L (17-59); Bilirubin,Total 0.5 mg/dL (0.2-1.3); Blood Urea Nitrogen 25 mg/dL (9-20); CRP < 0.5 mg/dL (<1.0); Calcium 9.3 mg/dL (8.4-10.2); Carbon Dioxide 27 mmol/L (22-30); Chloride 100 mmol/L (98-107); Estimated CRCL calculation 70 ml/min; Estimated Glomerular Filt Rate > 60; Glucose 221 mg/dL (65-110); Potassium 3.5 mmol/L (3.4-5.0); Sodium 136 mmol/L (137-145); Total Protein 6.0 g/dL (6.3-8.2)
[2025-01-03 14:36] LABS: Magnesium 1.3 mg/dL (1.6-2.3)
[2025-01-03 14:42] LABS: Influenza A QL RT-PCR Negative (Negative); Influenza B QL RT-PCR Negative (Negative); RSV RNA, RT-PCR Negative (Negative); SARS-CoV-2 RNA PCR Negative (Negative)
[2025-01-03 14:53] LABS: NT Pro B Type Natriuretic Pept 1120 pg/mL (19.9-100); Troponin I < 0.012 ng/mL (0.000-0.034)
[2025-01-03] MEDS: SODIUM CHLORIDE 0.9% IV 800 ML 999 ML IV CONT (15:50)
[2025-01-03] MEDS: SODIUM CHLORIDE 0.9% IV 1,000 ML 999 ML IV CONT ×2 (15:50→15:52)
[2025-01-03] MEDS: cefTRIAXone 1 GM in SODIUM CHLORIDE 0.9% IV 50 ML 100 ML IVPB (15:52)
[2025-01-03] MEDS: AZITHROMYCIN IV 500 MG in SODIUM CHLORIDE 0.9% IV 250 ML IVPB (16:47)
[2025-01-03] MEDS: MAGNESIUM SULF 1 GM/D5W 100 ML 1 GM/100 ML BAG IVPB (16:50)
--- NOTE | 2025-01-03 17:10 | P.HP_ITS ---
H&P: HPI History of Present Illness Date/Time: 01/03/25 17:10 Chief Complaint: Dizziness Narrative: 79-year-old male presents the hospital with dizziness possible syncope. He was recently in hospital for rectal bleeding colonoscopy was done which showed lunate ligament appearing rectal mass. Biopsies have been sent off. Patient states that he was told he has cancer and was recommended to a surgeon in [place]. He states he does not remember what kind of cancer it was. Patient complains of dizziness, shaking chills, denies shortness of breath. Lab work in the ED shows hemoglobin of 11.2, sodium of 136, BUN of 25, creatinine is 0.64, glucose of 221 lactic acid of 4.2 followed by 3.0 with 1 L fluid, magnesium of 1.3, proBNP of 1120, UA negative for infection, influenza A/B RSV COVID negative. Patient had a desaturation on room air of 88% was placed on 2 L nasal cannula. Chest x-ray showed no acute process, CT scan showed no PE. Head CT shows no acute process. CT abdomen shows no acute pro cess however prostate is prominent there is bladder distention. Will treat patient for possible pneumonia. Review of Systems Review of Systems: 12 systems were reviewed and are negativ e except for as per HPI. [facility] Past Medical History Medical History Abnormal CT scan, colon COPD (chronic obstructive pulmonary disease) CHF (congestive heart failure) Vascular dementia Cerebral infarction Incisional hernia s/p repair, 2019 Hemorrhoids GI bleed due to NSAIDs Acute blood loss anemia Duodenal ulcer (~2019) Colon polyps Benign prostatic hyperplasia Dyslipidemia Essential hypertension Marginal zone lymphoma Treated with chemotherapy at [facility] in [place] per Dr. Gresham. Chronic anemia Ganglion cyst of joint of finger of left hand Type 2 diabetes mellitus without complications Surgical History Surgical History History of incisional hernia repair laparoscopic repair of multiple incisional hernia with 25x20 cm Symbotex mesh 09/17/19 History of transurethral resection of prostate Wound dehiscence, traumatic injury repair (~01/2019) Repair of abdominal wound fascial dehiscence with evisceration. Status post exploratory laparotomy (~12/2018) With excisional biopsy of periaortic and periportal lymphadenopathy, histology showing marginal zone lymphoma. Family History Family History Father Acute myocardial infarction Sibling Cerebrovascular accident Family history of malignant neoplasm of brain Mother Family history of congestive heart failure Sibling Lung cancer Social History Social History Social History: The patient is and lives in his own home in [place]. He has 3 biological children and 2 step children. 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 He is a lifelong nonsmoker and denies alcohol and drug abuse. He designates his daughter, Brisa Brunner, as his surrogate decision maker and he wishes to be a full code. Smoking packs per day: 0.5 Smoking cigarettes per day: 10.0 Years smoked: 50 Smoking pack-years: 25.00 Smoking status: Former smoker Tobacco type: cigarettes Second hand tobacco smoke exposure: No Alcohol intake: former Substance use: never Substance use type: does not use Do You Feel Safe in your Home?: Yes Lack of Transportation: YES Lack of Food: Never True Current Housing: I Have Housing Concerned About Future Housing: No Difficulty Paying Gas/Electric Bills: No Difficulty Paying for Meds: No Currently Unemployed: No Education: Master's Degree or Higher Difficulty w/ Childcare or Family Care: No Living arrangements: alone Occupation/Education: occupation Additional occupation/education comments: 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 [employer] Gender identity (if verbalized by the patient): Male Spiritual care concerns: No Agree to blood products: Yes Meds Home Medications and Allergies Home Medications ?Medication ?Instructions ?Recorded ?Confirmed ?Type blood sugar diagnostic #10 ea 03/26/19 01/03/25 His tory lancets 33 gauge (OneTouch Delica #100 ea 03/26/1903/29 History Lancets) atorvastatin 10 mg tablet 10 mg PO DAILY #90 tabs 0507/2701/03/25 Rx escitalopram oxalate 10 mg tablet 10 mg PO DAILY #90 t abs 09/01/24 01/03/25 Rx (Lexapro) trazodone 50 mg tablet 50 mg PO QHS #90 tabs 01/03/25 Rx thiamine HCl (vitamin B1) 50 mg 50 mg PO DAILY #90 tab s 09/15/24 01/03/25 Rx tablet mirtazapine 15 mg tablet 15 mg PO HS 12/15/24 5 History glimepiride 2 mg tablet 1 mg (1/2 x 2 mg) PO BID #90 tabs 12/19/24 01/03/25 Rx atenolol 50 mg tablet (Tenormin) 50 mg PO DAILY #90 ta bs 12/25/24 01/03/25 Rx losartan 50 mg tablet 50 mg PO DAILY 12/25/2403/29 History pioglitazone 45 mg tablet 45 mg PO DAILY 12/25/2403/29 History ferrous sulfate 324 mg (65 mg 324 mg PO DAILY #90 tabs 12/26/24 01/03/25 Rx iron) tablet,delayed release magnesium oxide 400 mg PO DAILY #7 tabs 12/0401/03/25 Rx donepezil 10 mg tablet (Aricept) 10 mg PO DAILY #90 ta bs 12/29/24 01/03/25 Rx metformin 500 mg tablet 500 mg PO BID 01/03/2501/03 History omeprazole 20 mg capsule,delayed 20 mg PO BID 01/03/25 01/03/25 History release Allergies Allergy/AdvReac Type Severity Reaction Status Date / Time No Known Allergies Allergy Verified 01/03/25 18:33 Vital Signs Vital Signs - 24 hr 01/03/25 13:07 01/03/25 13:27 01/03/25 14:40 Temperature 97.6 F Pulse Rate 98 102 H Respiratory Rate 18 Blood Pressure 137/69 Pulse Oximetry 91 95 Oxygen Delivery Room Air Nasal Cannula Oxygen Flow Rate 2 01/03/25 15:53 01/03/25 17:01 Temperature Pulse Rate 91 84 Respiratory Rate 21 H 19 Blood Pressure 140/67 152/71 H Pulse Oximetry 98 98 Oxygen Delivery Oxygen Flow Rate Exam Narrative: General: Ill-appearing, no acute distress HEENT: normocephalic, atraumatic. Mucous membranes moist. EOMI, PERRLA, bilateral sclera anicteric, no conjunctival injection. Neck supple without JVD, lymphadenopathy, or bruit. Respiratory: clear bilaterally. No rales/rhonic/wheezes. Cardiovascular: Regular rate and rhythm, normal S1-S2. No murmurs, rubs, or clicks. PMI is nondisplaced, capillary refill less than 3 second. Abdomen: Soft, round, no pulsatile masses, nondistended and nontender. No rebound, no guarding. Bowel sounds present to all four quadrants. No high pitch or tinkling sounds, resonant to percussion. Extremities: No cyanosis, clubbing, or edema present. Pulses are palpable 2/2. Active ROM to all four extremities. Neuro: Alert and orientated x 4. PERRLA. Cranial nerves 2-12 intact without focal deficit. Skin: Warm, dry, and intact, without rash, erythema, or lesion. Psych: pleasant, cooperative, normal speech, normal affect, no hallucinations, no dysarthia H&P: Results Labs Labs: Short CBC 01/03/25 Range/Units 13:54 WBC 8.5 (4.5-10.0) K/mm3 Hgb 11.2 L (14.0-18.0) g/dL Hct 33.7 L (42.0-52.0) % Plt Count 219 (150-375) k/mm3 BMP 01/03/25 13:54 Sodium 136 L Potassium 3.5 Chloride 100 Carbon Dioxide 27 BUN 25 H Creatinine 0.64 L Glucose 221 H Calcium 9.3 Cardiac Enzymes 01/03/25 Range/Units 13:54 Troponin I < 0.012 (0.000-0.034) ng/mL Liver Function 01/03/25 Range/Units 13:54 Total Bilirubin 0.5 (0.2-1.3) mg/dL AST 23 (17-59) U/L ALT 17 (6-50) U/L Alkaline Phosphatase 67 (38-126) U/L Albumin 4.0 (3.5-5.1) g/dL Urine 01/03/25 Range/Units 13:37 Urine Color Yellow (Yellow) Urine Appearance Clear (Clear) Urine pH 5.5 (5.0-9.0) Ur Specific [place] 1.014 (1.001-1.035) Urine Protein Trace (Negative) mg/dL Urine Glucose (UA) Negative (Negative) mg/dL Assessment and Plan Assessment and plan (1) Acute respiratory failure: Code(s): J96.00 - Acute respiratory failure, unspecified whether with hypoxia or hypercapnia Status: Acute Assessment and Plan: No identifiable respiratory process on CT, influenza A/B, RSV COVID negative Doxy and Rocephin for possible pneumonia (2) Lactic acidosis: Code(s): E87.20 - Acidosis, unspecified Status: Acute Assessment and Plan: Improved with 1 L fluid 4.2 to 3.[address] abdomen pelvis with no identifiable abscess CRP elevated (3) Enlarged prostate: Code(s): N40.0 - Benign prostatic hyperplasia without lower urinary tract symptoms Status: Acute Assessment and Plan: PSA pending Started on Flomax (4) Dizziness: Code(s): R42 - Dizziness and giddiness Status: Acute Assessment and Plan: Possible syncope Echocardiogram Hold blood pressure meds (5) Elevated brain natriuretic peptide (BNP) level: Code(s): R79.89 - Other specified abnormal findings of blood chemistry Status: Acute Assessment and Plan: Mild cardiomegaly. Trace pericardial effusion. Complete echo pending (6) Alzheimer's dementia: Code(s): G30.9 - Alzheimer's disease, unspecified; F02.80 - Dementia in other diseases classified elsewhere, unspecified severity, without behavioral disturbance, psychotic disturbance, mood disturbance, and anxiety Status: Acute Assessment and Plan: Continue home medications (7) Rectal mass: Code(s): K62.89 - Other specified diseases of anus and rectum Status: Acute Assessment and Plan: Patient states that he is following up with the surgeons [place] (8) Type 2 diabetes mellitus without complications: Code(s): E11.9 - Type 2 diabetes mellitus without complications Status: Chronic Assessment and Plan: [place] cherry HS Diabetic diet SSI Glucerna shakes (9) Essential (primary) hypertension: Code(s): I10 - Essential (primary) hypertension Status: Chronic Assessment and Plan: Holding blood pressure medications Quality VTE Prophylaxis VTE prophylaxis: mechanical ordered and pharmacologic ordered Hospitalist MIPS Advance Care Plan I have confirmed that the patient's Advanced Care Plan is present, code status is documented, or surrogate decision maker is listed in patient medical record.: Yes Medication Reconciliation I have utilized all available resources to obtain, update and review the patients current medications (includes all prescriptions, OTC, herbals, cannabis, and nutritional supplements).: Yes
--- NOTE | 2025-01-03 17:30 | ADMGEN ---
This patient, Konrad Nieto, was admitted to Medical Room 344-01. Patient/family oriented to hospital policies and general routines including ID bracelet, bed and alarms, visiting hours, pain management, procedures, bathroom and other care routines, personal items, smoking policy, room service/diet, and visiting hours. Information on how to activate the Rapid Response Team has been discussed. Patient/Family are encouraged to report perceived risks to care and to ask questions if they do not understand what they are told or what they should do.
--- NOTE | 2025-01-03 19:03 | PC.NURSE ---
Brisasharad Brunner, daughter, notified per telephone of admission.
[2025-01-03 19:39] LABS: CRP 1.7 mg/dL (<1.0)
[2025-01-03 20:12] LABS: Prostate Specific Antigen 0.3 ng/mL (< OR = 4.0)
[2025-01-03] MEDS: MIRTAZAPINE 15 MG TABLET PO (20:47)
[2025-01-03] MEDS: TAMSULOSIN HCL 0.4 MG CAPSULE PO (21:05)
[2025-01-03] MEDS: DOXYCYCLINE HYCLATE 100 MG TABLET PO (22:28)
[2025-01-04] VITALS (13 sets, daily range): BP systolic 135–176; BP diastolic 63–82; PULSE 69–82; RESP 16–20; TEMP 36.6–37.2; O2SAT 93–99
--- NOTE | 2025-01-04 01:02 | PC.NURSE ---
Daylight Savings Time For Daylight Savings Time Ending in the Fall - Clocks are moved back. For Daylight Savings Time Beginning in the Spring - Clocks are moved ahead. For [facility], the time of change occurs at 0200 hrs. Time is taken from the cafe server. This entry on the patient's chart recognizes the change in time reflected during documentation. Example: 2 entries for vital signs may be charted for 0200 hrs.
--- NOTE | 2025-01-04 07:47 | P.PNIM_ITS ---
Progress Note: A&P Assessment and Plan (1) Acute respiratory failure: Code(s): J96.00 - Acute respiratory failure, unspecified whether with hypoxia or hypercapnia Status: Acute Assessment and Plan: - presented with increased shortness of breath - on 2L NC, no home O2 requirement - influenza A/B, RSV and COVID negative - CTA chest with no PE or other acute process. Moderate emphysematous changes. - lungs clear on exam - started on doxycycline and Rocephin for possible PNA - will hold off on further antibiotics for now - attempt to wean to RA today (2) Lactic acidosis: Code(s): E87.20 - Acidosis, unspecified Status: Acute Assessment and Plan: - initial LA 4.2, normalized with IV fluids - CT A/P with no acute process - follow-up blood cultures - encourage PO intake (3) Enlarged prostate: Code(s): N40.0 - Benign prostatic hyperplasia without lower urinary tract symptoms Status: Acute Assessment and Plan: -PSA WNL -Started on Flomax (4) Elevated brain natriuretic peptide (BNP) level: Code(s): R79.89 - Other specified abnormal findings of blood chemistry Status: Acute Assessment and Plan: Mild cardiomegaly. Trace pericardial effusion. Complete echo pending (5) Alzheimer's dementia: Code(s): G30.9 - Alzheimer's disease, unspecified; F02.80 - Dementia in other diseases classified elsewhere, unspecified severity, without behavioral disturbance, psychotic disturbance, mood disturbance, and anxiety Status: Acute Assessment and Plan: Continue home medications (6) Rectal mass: Code(s): K62.89 - Other specified diseases of anus and rectum Status: Acute Assessment and Plan: - recent admission for rectal bleeding. Found to have rectal mass and was referred to colorectal surgery at [facility] (7) Type 2 diabetes mellitus without complications: Code(s): E11.9 - Type 2 diabetes mellitus without complications Status: Chronic Assessment and Plan: - hold home PO meds - low dose SSI - continue Accu-Cheks a.c. HS - Diabetic diet (8) Essential (primary) hypertension: Code(s): I10 - Essential (primary) hypertension Status: Chronic Assessment and Plan: Holding blood pressure medications (9) Near syncope: Code(s): R55 - Syncope and collapse Status: Acute Assessment and Plan: - orthostatic vitals - echo - monitor on tele (10) Malnutrition: Code(s): E46 - Unspecified protein-calorie malnutrition Status: Acute Assessment and Plan: - start PO supplements - dietitian consulted Subjective Date/time seen: 01/04/25 07:47 Interval history: Patient seen and examined at bedside. Feeling a little better this AM. Reports poor PO intake Review of Systems Review of Systems: 12 systems were reviewed and are negativ e except for as per HPI. Exam Narrative: General: chronically ill appearing, frail Eyes: EOMI ENT: neck supple Cardiovascular: Regular rate and rhythm Respiratory: Clear to auscultation, respirations even and unlabored on RA Gastrointestinal: Soft, non tender Genitourinary: no suprapubic tenderness Musculoskeletal: No edema Skin: warm, dry Neuro: Alert and oriented x3, but forgetful in conversation. Psych: Mood appropriate Objective Data Vital Signs Vital Signs: Vital Signs - 24 hr 01/03/25 13:07 01/03/25 13:27 01/03/25 14:40 Temperature 97.6 F Pulse Rate 98 102 H Respiratory Rate 18 Blood Pressure 137/69 Pulse Oximetry 91 95 Oxygen Delivery Room Air Nasal Cannula Oxygen Flow Rate 2 Fraction of Inspired Oxygen 01/03/25 15:53 01/03/25 17:01 01/03/25 18:22 Temperature Pulse Rate 91 84 77 Respiratory Rate 21 H 19 Blood Pressure 140/67 152/71 H Pulse Oximetry 98 98 Oxygen Delivery Oxygen Flow Rate Fraction of Inspired Oxygen 01/03/25 18:24 01/03/25 20:00 01/03/25 20:00 Temperature 98.8 F Pulse Rate 77 80 Respiratory Rate 20 Blood Pressure 134/72 Pulse Oximetry 98 94 Oxygen Delivery Nasal Cannula Oxygen Flow Rate 2 Fraction of Inspired Oxygen 01/03/25 20:35 01/03/25 21:20 01/04/25 00:00 Temperature 98.2 F Pulse Rate 75 70 69 Respiratory Rate 20 16 Blood Pressure 135/65 Pulse Oximetry 94 97 Oxygen Delivery Nasal Cannula Oxygen Flow Rate 2 Fraction of Inspired Oxygen 28 01/04/25 04:00 01/04/25 04:53 Temperature 98.1 F Pulse Rate 76 76 Respiratory Rate 16 Blood Pressure 135/63 Pulse Oximetry 95 Oxygen Delivery Oxygen Flow Rate Fraction of Inspired Oxygen Intake/Output Intake/Output: Intake & Output 01/01/25 01/02/25 01/03/25 01/04/25 23:59 23:59 23:59 22:59 Intake Total 1850 300 Output Total 1200 Balance 1850 -900 Meds/Results Medications: Active Medications Generic Name Dose Route Start Last Admin Trade Name Freq PRN Reason Stop Dose Admin Acetaminophen 650 mg 01/03/25 16:05 Acetaminophen 325 Mg Tablet PO Q4H PRN Mild Pain (1-3) or Fever Atorvastatin Calcium 10 mg 01/04/25 09:00 Atorvastatin 10 Mg Tablet PO DAILY [facility] Dextrose 12.5 gm 01/03/25 22:40 Dextrose 50% 25 Gm/50 Ml Syringe IV PUSH PRN PRN Hypoglycemia Protocol Donepezil HCl 10 mg 01/04/25 09:00 Donepezil Hcl 10 Mg Tablet PO DAILY [facility] Doxycycline Hyclate 100 mg 01/03/25 21:30 01/03/25 22:28 Doxycycline Hyclate 100 Mg Tablet PO 100 mg Q12HR [place] Administration Enoxaparin Sodium 40 mg 01/04/25 09:00 Enoxaparin 40 Mg/0.4 Ml Syringe SUB-Q DAILY [facility] Escitalopram Oxalate 10 mg 01/04/25 09:00 Escitalopram Oxalate 10 Mg Tablet PO DAILY [facility] Glucagon 1 mg 01/03/25 22:40 Glucagon For Inj 1 Mg Vial IM PRN PRN Hypoglycemia Protocol Glucose 15 gm 01/03/25 22:40 Glucose Oral Gel 15 Gm Of Glucse In 37.5 Gm Tube PO PRN PRN Hypoglycemia Protocol Ceftriaxone Sodium 1 gm/ 50 mls @ 100 mls/hr 01/04/25 16:00 Sodium Chloride IVPB Q24H [place] Dextrose 1,000 mls @ 100 mls/hr 01/03/25 22:40 Dextrose 5% 1,000 Ml IVPB PRN PRN Hypoglycemia Protocol Insulin Aspart 2 - 5 units 01/04/25 08:00 Insulin Aspart (*Bkc) 100 Units/Ml SUB-Q TIDWM [facility] Protocol Losartan Potassium 50 mg 01/04/25 09:00 Losartan Potassium 50 Mg Tablet PO DAILY [facility] Mirtazapine 15 mg 01/03/25 21:00 01/03/25 20:47 Mirtazapine 15 Mg Tablet PO 15 mg HS [facility] Administration Pantoprazole Sodium 40 mg 01/04/25 09:00 Pantoprazole 40 Mg Tablet PO Q12HR [facility] Perflutren Lipid Microsphere 0 ml 01/03/25 18:38 Perflutren Lipid Microspheres 1.5 Ml Vial Diluted To 10 Ml Total Volume IV PUSH 01/06/25 18:38 ONCE PRN adequate visualization Protocol Tamsulosin HCl 0.4 mg 01/04/25 09:00 Tamsulosin Hcl 0.4 Mg Capsule PO QAM [facility] Thiamine HCl 50 mg 01/04/25 09:00 Thiamine Hcl 50 Mg Tablet PO DAILY [facility] Trazodone HCl 50 mg 01/04/25 21:00 Trazodone Hcl 50 Mg Tablet PO QHS [facility] Radiology Results: ITS Impressions Chest X-Ray 01/03/25 14:08 Impression: No acute cardiopulmonary abnormality. Chest CTA 01/03/25 15:26 IMPRESSION: Negative for pulmonary embolism. No acute process Head CT 01/03/25 17:01 Impression: 1.No acute intracranial abnormality. Abdomen/Pelvis CT 01/03/25 17:05 IMPRESSION: 1. No acute intra-abdominal process, absence of intravenous contrast limits evaluation but there is no gross abscess identified 2. Incidental findings above. Correlate for bladder outlet obstruction Labs Labs: Laboratory Results - last 24 hr 01/03/25 01/03/25 01/03/25 13:37 13:54 14:01 WBC 8.5 RBC 3.40 L Hgb 11.2 L Hct 33.7 L MCV 99.1 MCH 32.9 MCHC 33.2 RDW 14.6 H Plt Count 219 MPV 9.2 Immature Gran % (Auto) 0.8 H Neut % (Auto) 92.1 H Lymph % (Auto) 1.4 L [place] % (Auto) 4.7 Eos % (Auto) 0.5 Baso % (Auto) 0.5 Lymph # (Auto) 0.12 L [place] # (Auto) 0.4 Eos # (Auto) 0.0 Baso # (Auto) 0.0 Abs Immat Gran (auto) 0.07 H Absolute Neuts (auto) 7.8 H Absolute Nucleated RBC 0.000 Nucleated RBC % 0.0 PT 14.5 INR 1.1 APTT 26.4 Sodium 136 L Potassium 3.5 Chloride 100 Carbon Dioxide 27 Anion Gap 9 BUN 25 H Creatinine 0.64 L Estim Creat Clear Calc 70 Estimated GFR > 60 Glucose 221 H POC Capillary Glucose Lactic Acid 4.2 H* Calcium 9.3 Magnesium 1.3 L Total Bilirubin 0.5 AST 23 ALT 17 Alkaline Phosphatase 67 Troponin I < 0.012 C-Reactive Protein < 0.5 NT-Pro-B Natriuret Pep 1120 H Total Protein 6.0 L Albumin 4.0 Prostate Specific Ag Urine Color Yellow Urine Appearance Clear Urine pH 5.5 Ur Specific [place] 1.014 Urine Protein Trace Urine Glucose (UA) Negative Urine Ketones Negative Ur Blood (Man) Negative Urine Nitrate Negative Urine Bilirubin Negative Urine Urobilinogen 0.2 Add Ur Microanalysis Reviewed Leukocyte Esterase Rfl Negative Urine RBC 0-2 Urine WBC 0-5 Ur Squamous Epith Cells None seen Urine Bacteria None seen Urine Casts 0-2 Influenza A (RT-PCR) Negative Influenza B (RT-PCR) Negative RSV (RT-PCR) Negative SARS-CoV-2 RNA (RT-PCR) Negative 01/03/25 01/03/25 01/03/25 16:59 18:19 19:11 WBC RBC Hgb Hct MCV MCH MCHC RDW Plt Count MPV Immature Gran % (Auto) Neut % (Auto) Lymph % (Auto) [place] % (Auto) Eos % (Auto) Baso % (Auto) Lymph # (Auto) [place] # (Auto) Eos # (Auto) Baso # (Auto) Abs Immat Gran (auto) Absolute Neuts (auto) Absolute Nucleated RBC Nucleated RBC % PT INR APTT Sodium Potassium Chloride Carbon Dioxide Anion Gap BUN Creatinine Estim Creat Clear Calc Estimated GFR Glucose POC Capillary Glucose 143 H Lactic Acid 3.0 H Calcium Magnesium Total Bilirubin AST ALT Alkaline Phosphatase Troponin I C-Reactive Protein 1.7 H NT-Pro-B Natriuret Pep Total Protein Albumin Prostate Specific Ag 0.3 Urine Color Urine Appearance Urine pH Ur Specific [place] Urine Protein Urine Glucose (UA) Urine Ketones Ur Blood (Man) Urine Nitrate Urine Bilirubin Urine Urobilinogen Add Ur Microanalysis Leukocyte Esterase Rfl Urine RBC Urine WBC Ur Squamous Epith Cells Urine Bacteria Urine Casts Influenza A (RT-PCR) Influenza B (RT-PCR) RSV (RT-PCR) SARS-CoV-2 RNA (RT-PCR) 01/04/25 00:59 WBC RBC Hgb Hct MCV MCH MCHC RDW Plt Count MPV Immature Gran % (Auto) Neut % (Auto) Lymph % (Auto) [place] % (Auto) Eos % (Auto) Baso % (Auto) Lymph # (Auto) [place] # (Auto) Eos # (Auto) Baso # (Auto) Abs Immat Gran (auto) Absolute Neuts (auto) Absolute Nucleated RBC Nucleated RBC % PT INR APTT Sodium Potassium Chloride Carbon Dioxide Anion Gap BUN Creatinine Estim Creat Clear Calc Estimated GFR Glucose POC Capillary Glucose 123 H Lactic Acid Calcium Magnesium Total Bilirubin AST ALT Alkaline Phosphatase Troponin I C-Reactive Protein NT-Pro-B Natriuret Pep Total Protein Albumin Prostate Specific Ag Urine Color Urine Appearance Urine pH Ur Specific [place] Urine Protein Urine Glucose (UA) Urine Ketones Ur Blood (Man) Urine Nitrate Urine Bilirubin Urine Urobilinogen Add Ur Microanalysis Leukocyte Esterase Rfl Urine RBC Urine WBC Ur Squamous Epith Cells Urine Bacteria Urine Casts Influenza A (RT-PCR) Influenza B (RT-PCR) RSV (RT-PCR) SARS-CoV-2 RNA (RT-PCR) Quality VTE Prophylaxis VTE prophylaxis: mechanical ordered and pharmacologic ordered
[2025-01-04 08:20] LABS: Hematocrit 29.3 % (42.0-52.0); Hemoglobin 9.4 g/dL (14.0-18.0); Mean Corpuscular HGB Conc 32.1 g/dl (32-36); Mean Corpuscular Hemoglobin 32.9 pg (26-34); Mean Corpuscular Volume 102.4 fl (80-100); Platelet Count Result 178 k/mm3 (150-375); Red Blood Count 2.86 M/mm3 (4.6-6.20); White Blood Count 8.5 K/mm3 (4.5-10.0)
[2025-01-04 08:41] LABS: Alanine Aminotransferase 10 U/L (6-50); Albumin Level 3.2 g/dL (3.5-5.1); Alkaline Phosphatase 53 U/L (38-126); Anion Gap 5 mmol/L (4-12); Aspartate Amino Transferase 16 U/L (17-59); Bilirubin,Total 0.4 mg/dL (0.2-1.3); Blood Urea Nitrogen 16 mg/dL (9-20); Calcium 8.4 mg/dL (8.4-10.2); Carbon Dioxide 30 mmol/L (22-30); Chloride 103 mmol/L (98-107); Estimated CRCL calculation 68 ml/min; Estimated Glomerular Filt Rate > 60; Glucose 118 mg/dL (65-110); Potassium 3.2 mmol/L (3.4-5.0); Sodium 138 mmol/L (137-145); Total Protein 5.3 g/dL (6.3-8.2)
[2025-01-04 08:58] LABS: Procalcitonin 28.1 ng/mL
[2025-01-04 09:00] LABS: Anisocytosis Occasional; Band Neutrophils Percent 6 % (0-6); Eosinophils Absolute Manual 0.08 K/mm3 (0.02-0.50); Eosinophils Percent Manual 1 % (0-4); Lymphocytes Absolute Manual 0.34 K/mm3 (1.1-4.5); Lymphocytes Percent Manual 4 % (18-44); Monocytes Absolute Manual 0.17 K/mm3 (0.1-0.90); Monocytes Percent Manual 2 % (3-9); Neutrophils Absolute Manual 7.90 K/mm3 (1.3-6.7); Neutrophils Percent Manual 87 % (46-73); Schistocytes None Seen; Total Cells Counted 100
[2025-01-04] MEDS: LOSARTAN POTASSIUM 50 MG TABLET PO (09:30)
[2025-01-04] MEDS: ATORVASTATIN 10 MG TABLET PO (09:30)
[2025-01-04] MEDS: TAMSULOSIN HCL 0.4 MG CAPSULE PO (09:30)
[2025-01-04] MEDS: ESCITALOPRAM OXALATE 10 MG TABLET PO (09:30)
[2025-01-04] MEDS: PANTOPRAZOLE 40 MG TABLET PO ×2 (09:30→21:14)
[2025-01-04] MEDS: ENOXAPARIN 40 MG/0.4 ML SYRINGE SUB-Q (09:31)
[2025-01-04] MEDS: DOXYCYCLINE HYCLATE 100 MG TABLET PO (09:31)
[2025-01-04] MEDS: THIAMINE HCL 50 MG TABLET PO (09:31)
[2025-01-04] MEDS: DONEPEZIL HCL 10 MG TABLET PO (09:57)
[2025-01-04] MEDS: MIRTAZAPINE 15 MG TABLET PO (21:14)
--- NOTE | 2025-01-04 23:27 | PC.NURSE ---
[employer] reached out to provider, Sita Garrett concerning patients elevated BP. Initially Bp 180/100 manually. Repeat manual pressure was 176/82. Verbal order to recheck and contact hospitalist if BP elevates above last reading.
[2025-01-05] VITALS (11 sets, daily range): BP systolic 159–175; BP diastolic 69–90; PULSE 62–102; RESP 16–18; TEMP 36.5–36.9; O2SAT 90–93; BMI 16.9
--- NOTE | 2025-01-05 | ECHO_ITS ---
Patient Info Name: Konrad Nieto Age: 79 years : 1945 Gender: Male Ht: 74 in Wt: 132 lbs BSA: 1.75 m2 HR: 82 bpm BP: 166 / 89 mmHg Heart Rhythm: Sinus Rhythm Technical Quality: Good Exam Date: 01/05/2025 10:08 AM Patient Status: I Admit Date: 01/04/2025 Exam Type: CA echo doppler color flow Complete two-dimensional, color flow and Doppler transthoracic echocardiogram is performed. Staff Referring Physician: Stephanie Dejesus Cabinet Professional: Brisa Albarado Attending Provider: Zachary Hernandez Summary 1. Complete two-dimensional, color flow and Doppler transthoracic echocardiogram is performed. 2. Left ventricular chamber dimension is normal. 3. Left ventricular systolic function is normal, estimated at 60-65. 4. The left ventricular diastolic function is grade I diastolic dysfunction. 5. E/e' 9 is minimally elevated. 6. There is trace aortic valve regurgitation. 7. No pulmonary hypertension, estimated pulmonary arterial systolic pressure is 30 mmHg. 8. Dilated inferior vena cava with >50% collapse upon inspiration consistent with normal right atrial pressure, 10 mmHg. Left Ventricle E/e' 9 is minimally elevated. Left ventricular chamber dimension is normal. Left ventricular systolic function is normal, estimated at 60-65. The left ventricular diastolic function is grade I diastolic dysfunction. Right Ventricle Right ventricular chamber dimension is normal. Right ventricular systolic function is normal and with normal TAPSE 2.2 cm. Left Atria Left atrial chamber dimension is normal. Right Atria Right atrial chamber dimension is normal. Aortic Valve The aortic valve is trileaflet. There is no aortic valve stenosis. There is trace aortic valve regurgitation. Pulmonic Valve There is no pulmonic regurgitation. Mitral Valve There is no mitral valve stenosis. There is no mitral valve regurgitation. Tricuspid Valve There is no tricuspid valve regurgitation. No pulmonary hypertension, estimated pulmonary arterial systolic pressure is 30 mmHg. Pericardium/Pleural There is no pericardial effusion. Inferior Vena Cava Dilated inferior vena cava with >50% collapse upon inspiration consistent with normal right atrial pressure, 10 mmHg. Aorta The aortic root size at the sinus of Valsalva is normal. Left Ventricular Outflow Tract Name Value Normal LVOT 2D LVOT Diameter 2.0 cm LVOT Doppler LVOT Peak Velocity 74 cm/s LVOT Peak Gradient 2 mmHg LVOT Mean Gradient 1 mmHg LVOT VTI 12 cm LVOT VTI/AV VTI Ratio 0.7 LVOT Stroke Volume 40 ml LVOT CO 3.1 l/min LVOT CI 1.8 l/min/m2 Mitral Valve Name Value Normal MV Diastolic Function MV E Peak Velocity 64 cm/s MV A Peak Velocity 92 cm/s MV E/A 0.7 MV Decel Time (PW) 192 ms MV Annular TDI MV E/e' (Septal) 8.6 MV E/e' (Lateral) 9.6 MV E/e' (Average) 9.1 Tricuspid Valve Name Value Normal TV Regurgitation Doppler TR Peak Velocity 224 cm/s TR Peak Gradient 20 mmHg Estimated PAP/RSVP RA Pressure 10 mmHg <=5 PA Systolic Pressure 30 mmHg <36 RV Systolic Pressure 30 mmHg <36 TV Annular TDI TV Lateral Shaina s' Velocity 19.1 cm/s >=9.5 Aortic Valve Name Value Normal AV Doppler AV Peak Velocity 117 cm/s AV Peak Gradient 6 mmHg AV Mean Gradient 2 mmHg AV VTI 18 cm AV Area (Cont Eq VTI) 2.3 cm2 >=3.0 AV Area (Cont Eq Tomi) 2.1 cm2 AV DI (Tomi) 0.63 AV Regurgitation 2D LVOT Area 3.3 cm2 Ventricles Name Value Normal LV Dimensions 2D/MM IVS Diastolic Thickness (2D) 1.0 cm 0.6-1.0 LVID Diastole (2D) 4.4 cm 4.2-5.8 LVIW Diastolic Thickness (2D) 0.9 cm 0.6-1.0 LVID Systole (2D) 3.0 cm 2.5-4.0 LVOT Diameter 2.0 cm LV Mass (2D Cubed) 138.48 g 88.00-224.00 LV Mass Index (2D Cubed) 79 g/m2 49-115 Relative Wall Thickness (2D) 0.42 <=0.42 LV Fractional Shortening/Ejection Fraction 2D/MM LV Fractional Shortening (2D) 32 % 25-43 LV EF (2D Teichshubhamz) 60 % LV Diastolic Volume (4C MOD) 105 ml LV EF (4C MOD) 62 % LV Diastolic Volume (2C MOD) 78 ml LV EF (2C MOD) 62 % LV Diastolic Volume (BP MOD) 92 ml 62-150 LV Diastolic Volume Index (BP MOD) 53 ml/m2 34-74 LV Systolic Volume (BP MOD) 34 ml 21-61 LV Systolic Volume Index (BP MOD) 20 ml/m2 11-31 LV EF (BP MOD) 63 % 52-72 LV Diastolic Length (4C) 8.5 cm LV Systolic Length (4C) 6.5 cm LV Stroke Volume (4C MOD) 65 ml Atria Name Value Normal LA Dimensions LA Volume (4C A-L) 54 ml LA Volume (BP A-L) 56 ml RA Dimensions RA Area (4C) 19.4 cm2 <=18.0 Report Signatures
[2025-01-05 05:11] LABS: Hematocrit 29.1 % (42.0-52.0); Hemoglobin 9.4 g/dL (14.0-18.0); Immature Granulocyte Percent A 0.5 % (0-0.5); Lymphocytes Absolute Auto 0.35 K/mm3 (0.9-3.2); Mean Corpuscular HGB Conc 32.3 g/dl (32-36); Mean Corpuscular Hemoglobin 32.6 pg (26-34); Mean Corpuscular Volume 101.0 fl (80-100); Nucleated Red Blood Cells Absolute Auto 0.000 K/mm3 (0.0-0.012); Nucleated Red Blood Cells Perc 0.0 % (0.0-0.2); Platelet Count Result 175 k/mm3 (150-375); Red Blood Count 2.88 M/mm3 (4.6-6.20); White Blood Count 5.8 K/mm3 (4.5-10.0)
[2025-01-05 05:34] LABS: Alanine Aminotransferase 11 U/L (6-50); Albumin Level 3.1 g/dL (3.5-5.1); Alkaline Phosphatase 54 U/L (38-126); Anion Gap 2 mmol/L (4-12); Aspartate Amino Transferase 19 U/L (17-59); Bilirubin,Total 0.3 mg/dL (0.2-1.3); Blood Urea Nitrogen 11 mg/dL (9-20); Calcium 8.1 mg/dL (8.4-10.2); Carbon Dioxide 32 mmol/L (22-30); Chloride 102 mmol/L (98-107); Estimated CRCL calculation 74 ml/min; Estimated Glomerular Filt Rate > 60; Glucose 142 mg/dL (65-110); Potassium 3.2 mmol/L (3.4-5.0); Sodium 136 mmol/L (137-145); Total Protein 5.1 g/dL (6.3-8.2)
[2025-01-05] MEDS: POTASSIUM CHLORIDE 20 MEQ PACKET (FOR LIQUID) 40 MEQ PO (09:42)
[2025-01-05] MEDS: LOSARTAN POTASSIUM 50 MG TABLET PO (09:42)
[2025-01-05] MEDS: PANTOPRAZOLE 40 MG TABLET PO ×2 (09:42→21:56)
[2025-01-05] MEDS: ENOXAPARIN 40 MG/0.4 ML SYRINGE SUB-Q (09:42)
[2025-01-05] MEDS: TAMSULOSIN HCL 0.4 MG CAPSULE PO (09:43)
[2025-01-05] MEDS: DONEPEZIL HCL 10 MG TABLET PO (09:43)
[2025-01-05] MEDS: ESCITALOPRAM OXALATE 10 MG TABLET PO (09:43)
[2025-01-05] MEDS: THIAMINE HCL 50 MG TABLET PO (09:43)
[2025-01-05] MEDS: ATORVASTATIN 10 MG TABLET PO (09:43)
[2025-01-05] MEDS: INSULIN ASPART (*BKC) 100 UNITS/ML SUB-Q (12:31)
--- NOTE | 2025-01-05 13:28 | P.PNIM_ITS ---
Progress Note: A&P Assessment and Plan (1) Acute respiratory failure: Code(s): J96.00 - Acute respiratory failure, unspecified whether with hypoxia or hypercapnia Status: Acute Assessment and Plan: - presented with increased shortness of breath - on 2L NC, no home O2 requirement - influenza A/B, RSV and COVID negative - CTA chest with no PE or other acute process. Moderate emphysematous changes. - lungs clear on exam - started on doxycycline and Rocephin for possible PNA - will hold off on further antibiotics for now - weaned to RA (2) Lactic acidosis: Code(s): E87.20 - Acidosis, unspecified Status: Acute Assessment and Plan: - initial LA 4.2, normalized with IV fluids - CT A/P with no acute process - follow-up blood cultures - encourage PO intake (3) Near syncope: Code(s): R55 - Syncope and collapse Status: Acute Assessment and Plan: - orthostatic vitals negative - echo with EF 60-65%, G1 DD - suspect due to dehydration - PT/OT recommended home care - monitor on tele (4) Enlarged prostate: Code(s): N40.0 - Benign prostatic hyperplasia without lower urinary tract symptoms Status: Acute Assessment and Plan: -PSA WNL -Started on Flomax - bladder scans have been negative for retention (5) Alzheimer's dementia: Code(s): G30.9 - Alzheimer's disease, unspecified; F02.80 - Dementia in other diseases classified elsewhere, unspecified severity, without behavioral disturbance, psychotic disturbance, mood disturbance, and anxiety Status: Acute Assessment and Plan: - progressively worsening memory loss. Lives at home alone with aid services. 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 Discussed possible hospice services at home. Care coordination to consult. -Continue home medications (6) Rectal mass: Code(s): K62.89 - Other specified diseases of anus and rectum Status: Acute Assessment and Plan: - recent admission for rectal bleeding. Found to have rectal mass and was referred to colorectal surgery at [facility] (7) Type 2 diabetes mellitus without complications: Code(s): E11.9 - Type 2 diabetes mellitus without complications Status: Chronic Assessment and Plan: - hold home PO meds - low dose SSI - continue Accu-Cheks a.c. HS - Diabetic diet (8) Essential (primary) hypertension: Code(s): I10 - Essential (primary) hypertension Status: Chronic Assessment and Plan: - BP stable - continue home meds (9) Malnutrition: Code(s): E46 - Unspecified protein-calorie malnutrition Status: Acute Assessment and Plan: - start PO supplements - dietitian consulted Plan Code status: DNR DVT prophylaxis: Lovenox Dispo: likely home with [facility] tomorrow if cultures negative Subjective Date/time seen: 01/05/25 13:28 Interval history: Patient seen and examined at bedside. Feeling back to his normal self and wants to go home. Nursing expressed concern about patient's memory. Discussed with daughter over the phone who is concerned about patient being home alone. Review of Systems Review of Systems: 12 systems were reviewed and are negativ e except for as per HPI. Exam Narrative: General: chronically ill appearing, frail Eyes: EOMI ENT: neck supple Cardiovascular: Regular rate and rhythm Respiratory: Clear to auscultation, respirations even and unlabored on RA Gastrointestinal: Soft, non tender Genitourinary: no suprapubic tenderness Musculoskeletal: No edema Skin: warm, dry Neuro: Alert and oriented x3, but forgetful in conversation. Psych: Mood appropriate Objective Data Vital Signs Vital Signs: Vital Signs - 24 hr 01/04/25 14:00 01/04/25 14:40 01/04/25 14:41 Temperature 98.9 F Pulse Rate 79 80 82 Respiratory Rate 18 Blood Pressure 142/74 H 142/74 H 155/76 H Pulse Oximetry 99 Oxygen Delivery 01/04/25 14:41 01/04/25 16:00 01/04/25 20:00 Temperature Pulse Rate 80 82 81 Respiratory Rate Blood Pressure 140/76 Pulse Oximetry Oxygen Delivery 01/04/25 21:24 01/05/25 00:00 01/05/25 04:00 Temperature 98 F Pulse Rate 78 75 81 Respiratory Rate 18 Blood Pressure 176/82 H Pulse Oximetry 93 Oxygen Delivery 01/05/25 04:23 01/05/25 07:59 01/05/25 09:26 Temperature 98.5 F Pulse Rate 82 Respiratory Rate 18 Blood Pressure 166/89 H Pulse Oximetry 92 Oxygen Delivery Room Air Room Air Intake/Output Intake/Output: Intake & Output 01/02/25 01/03/25 01/04/25 01/05/25 23:59 23:59 22:59 23:59 Intake Total 1850 2451 680 Output Total 3400 1875 Balance 8817 -174 -7556 Meds/Results Medications: Active Medications Generic Name Dose Route Start Last Admin Trade Name Freq PRN Reason Stop Dose Admin Acetaminophen 650 mg 01/03/25 16:05 Acetaminophen 325 Mg Tablet PO Q4H PRN Mild Pain (1-3) or Fever Atorvastatin Calcium 10 mg 01/04/25 09:00 01/05/25 09:43 Atorvastatin 10 Mg Tablet PO 10 mg DAILY [place] Administration Dextrose 12.5 gm 01/03/25 22:40 Dextrose 50% 25 Gm/50 Ml Syringe IV PUSH PRN PRN Hypoglycemia Protocol Donepezil HCl 10 mg 01/04/25 09:00 01/05/25 09:43 Donepezil Hcl 10 Mg Tablet PO 10 mg DAILY [place] Administration Enoxaparin Sodium 40 mg 01/04/25 09:00 01/05/25 09:42 Enoxaparin 40 Mg/0.4 Ml Syringe SUB-Q 40 mg DAILY [place] Administration Escitalopram Oxalate 10 mg 01/04/25 09:00 01/05/25 09:43 Escitalopram Oxalate 10 Mg Tablet PO 10 mg DAILY [place] Administration Glucagon 1 mg 01/03/25 22:40 Glucagon For Inj 1 Mg Vial IM PRN PRN Hypoglycemia Protocol Glucose 15 gm 01/03/25 22:40 Glucose Oral Gel 15 Gm Of Glucse In 37.5 Gm Tube PO PRN PRN Hypoglycemia Protocol Dextrose 1,000 mls @ 100 mls/hr 01/03/25 22:40 Dextrose 5% 1,000 Ml IVPB PRN PRN Hypoglycemia Protocol Insulin Aspart 2 - 5 units 01/04/25 08:00 01/05/25 12:31 Insulin Aspart (*Bkc) 100 Units/Ml SUB-Q 4 units TIDWM [place] Administration Protocol Losartan Potassium 50 mg 01/04/25 09:00 01/05/25 09:42 Losartan Potassium 50 Mg Tablet PO 50 mg DAILY [place] Administration Mirtazapine 15 mg 01/03/25 21:00 01/04/25 21:14 Mirtazapine 15 Mg Tablet PO 15 mg HS [place] Administration Pantoprazole Sodium 40 mg 01/04/25 09:00 01/05/25 09:42 Pantoprazole 40 Mg Tablet PO 40 mg Q12HR [place] Administration Perflutren Lipid Microsphere 0 ml 01/03/25 18:38 Perflutren Lipid Microspheres 1.5 Ml Vial Diluted To 10 Ml Total Volume IV PUSH 01/06/25 18:38 ONCE PRN adequate visualization Protocol Tamsulosin HCl 0.4 mg 01/04/25 09:00 01/05/25 09:43 Tamsulosin Hcl 0.4 Mg Capsule PO 0.4 mg QAM [place] Administration Thiamine HCl 50 mg 01/04/25 09:00 01/05/25 09:43 Thiamine Hcl 50 Mg Tablet PO 50 mg DAILY [place] Administration Trazodone HCl 50 mg 01/04/25 21:00 01/04/25 21:14 Trazodone Hcl 50 Mg Tablet PO 50 mg QHS [place] Administration Radiology Results: ITS Impressions Chest X-Ray 01/03/25 14:08 Impression: No acute cardiopulmonary abnormality. Chest CTA 01/03/25 15:26 IMPRESSION: Negative for pulmonary embolism. No acute process Head CT 01/03/25 17:01 Impression: 1.No acute intracranial abnormality. Abdomen/Pelvis CT 01/03/25 17:05 IMPRESSION: 1. No acute intra-abdominal process, absence of intravenous contrast limits evaluation but there is no gross abscess identified 2. Incidental findings above. Correlate for bladder outlet obstruction Labs Labs: Laboratory Results - last 24 hr 01/04/25 01/04/25 01/05/25 16:49 21:26 05:04 WBC 5.8 RBC 2.88 L Hgb 9.4 L Hct 29.1 L MCV 101.0 H MCH 32.6 MCHC 32.3 RDW 14.6 H Plt Count 175 MPV 9.2 Immature Gran % (Auto) 0.5 Neut % (Auto) 80.6 H Lymph % (Auto) 6.0 L Wells % (Auto) 9.8 H Eos % (Auto) 2.6 Baso % (Auto) 0.5 Lymph # (Auto) 0.35 L Wells # (Auto) 0.6 Eos # (Auto) 0.2 Baso # (Auto) 0.0 Abs Immat Gran (auto) 0.03 Absolute Neuts (auto) 4.7 Absolute Nucleated RBC 0.000 Nucleated RBC % 0.0 Sodium 136 L Potassium 3.2 L Chloride 102 Carbon Dioxide 32 H Anion Gap 2 L BUN 11 D Creatinine 0.60 L Estim Creat Clear Calc 74 Estimated GFR > 60 Glucose 142 H POC Capillary Glucose 192 H 117 H Calcium 8.1 L Total Bilirubin 0.3 AST 19 ALT 11 Alkaline Phosphatase 54 Total Protein 5.1 L Albumin 3.1 L 01/05/25 01/05/25 08:03 11:40 WBC RBC Hgb Hct MCV MCH MCHC RDW Plt Count MPV Immature Gran % (Auto) Neut % (Auto) Lymph % (Auto) Wells % (Auto) Eos % (Auto) Baso % (Auto) Lymph # (Auto) Wells # (Auto) Eos # (Auto) Baso # (Auto) Abs Immat Gran (auto) Absolute Neuts (auto) Absolute Nucleated RBC Nucleated RBC % Sodium Potassium Chloride Carbon Dioxide Anion Gap BUN Creatinine Estim Creat Clear Calc Estimated GFR Glucose POC Capillary Glucose 155 H 303 H Calcium Total Bilirubin AST ALT Alkaline Phosphatase Total Protein Albumin Quality VTE Prophylaxis VTE prophylaxis: mechanical ordered and pharmacologic ordered
[2025-01-05] MEDS: MIRTAZAPINE 15 MG TABLET PO (21:56)
[2025-01-06] VITALS (11 sets, daily range): BP systolic 105–182; BP diastolic 80–93; PULSE 54–66; RESP 18–20; TEMP 36.3–36.8; O2SAT 91–96
[2025-01-06] MEDS: VANCOMYCIN 1,500 MG/NS 500 ML 1,500 MG/500 ML BAG 250 MG IVPB (03:58)
[2025-01-06 05:29] LABS: MRSA (PCR) NOT DETECTED (NOT DETECTE)
--- NOTE | 2025-01-06 07:18 | P.CDI_ITS ---
CDI Query Clarification Request BMI: 17.0 Nutritional Diagnostic Statement: Please refer to the comprehensive nutrition assessment for further information. If you agree with diagnosis of Severe protein calorie malnutrition related to chronic lack of access to food as evidenced by intakes <75% needs >3 months; severe muscle wasting (temporalis, clavicles, shoulders) and severe fat loss (cheeks, ribs). Please specify severity if known: * Mild * Moderate * Severe * Other/Unknown <Bailey Lainez RN - Last Filed: 01/06/25 07:19> Clarified Diagnosis Clarified Diagnosis: severe protein-calorie malnutrition <GLENNA Carbajal - Last Filed: 01/06/25 07:52>
--- NOTE | 2025-01-06 07:52 | P.PNIM_ITS ---
Progress Note: A&P Assessment and Plan (1) Acute respiratory failure: Code(s): J96.00 - Acute respiratory failure, unspecified whether with hypoxia or hypercapnia Status: Acute Assessment and Plan: - presented with increased shortness of breath - on 2L NC, no home O2 requirement - influenza A/B, RSV and COVID negative - CTA chest with no PE or other acute process. Moderate emphysematous changes. - lungs clear on exam - started on doxycycline and Rocephin for possible PNA - will hold off on further antibiotics for pneumonia for now - weaned to RA (2) Positive blood culture: Code(s): R78.81 - Bacteremia Status: Acute Assessment and Plan: - blood cultures obtained 01/03 - 03/08 bottles positive for gram positive cocci - TTE with no signs of endocarditis - no wounds - suspect contaminant, but patient presented with rigors, procal 28 (which could be from malignancy) - started on vancomycin overnight 01/06, will continue for now - repeat blood cultures pending (3) Alzheimer's dementia: Code(s): G30.9 - Alzheimer's disease, unspecified; F02.80 - Dementia in other diseases classified elsewhere, unspecified severity, without behavioral disturbance, psychotic disturbance, mood disturbance, and anxiety Status: Acute Assessment and Plan: - progressively worsening memory loss. Alert and oriented x3 however has very poor short-term memory and poor situational awareness. Very poor PO intake at home, failure to thrive. Lives at home alone with aide services. 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 Plan is likely for him to return home with home care/aide services until his follow-up appointment at [place] next week to determine next steps (if any) for rectal mass. Depending on this appointment, daughter may elect hospice services for the patient. -Continue home medications L (4) Lactic acidosis: Code(s): E87.20 - Acidosis, unspecified Status: Acute Assessment and Plan: - initial LA 4.2, normalized with IV fluids - CT A/P with no acute process - follow-up blood cultures - encourage PO intake (5) Near syncope: Code(s): R55 - Syncope and collapse Status: Acute Assessment and Plan: - orthostatic vitals negative - echo with EF 60-65%, G1 DD - suspect due to dehydration - PT/OT recommended home care - monitor on tele (6) Enlarged prostate: Code(s): N40.0 - Benign prostatic hyperplasia without lower urinary tract symptoms Status: Acute Assessment and Plan: -PSA WNL -Started on Flomax - bladder scans have been negative for retention (7) Rectal mass: Code(s): K62.89 - Other specified diseases of anus and rectum Status: Acute Assessment and Plan: - recent admission for rectal bleeding. Found to have rectal mass and was referred to colorectal surgery at [facility] stable (8) Type 2 diabetes mellitus without complications: Code(s): E11.9 - Type 2 diabetes mellitus without complications Status: Chronic Assessment and Plan: - hold home PO meds - low dose SSI - continue Accu-Cheks a.cDylan HS - Diabetic diet (9) Essential (primary) hypertension: Code(s): I10 - Essential (primary) hypertension Status: Chronic Assessment and Plan: - BP elevated likely due to missed BP meds - resume home losartan and atenolol. Titrate PRN (10) Malnutrition: Code(s): E46 - Unspecified protein-calorie malnutrition Status: Acute Assessment and Plan: Severe protein-calorie malnutrition - start PO supplements - dietitian following Plan Code status: DNR DVT prophylaxis: Lovenox Dispo: likely home with [facility] once repeat cultures result Subjective Date/time seen: 01/06/25 07:52 Interval history: Patient seen and examined at bedside. Denied chills, chest pain, SOB, wounds, rash. Discussed positive blood culture and work-up, patient agreeable. Discussed plan of care with daughter over the phone. Plan is likely for patient to return home until his appointment with colorectal surgery at [place]. She has been in contact with [facility] which she may arrange for patient after this appointment. Review of Systems Review of Systems: 12 systems were reviewed and are negativ e except for as per HPI. Exam Narrative: General: chronically ill appearing, frail Eyes: EOMI ENT: neck supple Cardiovascular: Regular rate and rhythm Respiratory: Clear to auscultation, respirations even and unlabored on RA Gastrointestinal: Soft, non tender Genitourinary: no suprapubic tenderness Musculoskeletal: No edema Skin: warm, dry Neuro: Alert and oriented x3, but forgetful in conversation. Psych: Mood appropriate Objective Data Vital Signs Vital Signs: Vital Signs - 24 hr 01/05/25 07:59 01/05/25 08:00 01/05/25 09:26 Temperature Pulse Rate 102 H Respiratory Rate Blood Pressure Pulse Oximetry Oxygen Delivery Room Air Room Air 01/05/25 09:40 01/05/25 12:00 01/05/25 14:00 Temperature 97.8 F Pulse Rate 80 78 Respiratory Rate 16 Blood Pressure 175/90 H Pulse Oximetry 93 93 Oxygen Delivery Room Air 01/05/25 16:00 01/05/25 16:27 01/05/25 20:00 Temperature Pulse Rate 77 87 64 Respiratory Rate Blood Pressure Pulse Oximetry Oxygen Delivery 01/05/25 22:00 01/06/25 00:00 01/06/25 04:00 Temperature 97.7 F Pulse Rate 62 57 L 64 Respiratory Rate 18 Blood Pressure 159/69 H Pulse Oximetry 90 Oxygen Delivery 01/06/25 04:12 Temperature 97.9 F Pulse Rate 66 Respiratory Rate 18 Blood Pressure 182/83 H Pulse Oximetry 91 Oxygen Delivery Intake/Output Intake/Output: Intake & Output 01/03/25 01/04/25 01/05/25 01/06/25 23:59 22:59 23:59 23:59 Intake Total 1850 2451 1470 Output Total 3400 2225 1325 Balance 6200 -949 -755 -1325 Meds/Results Medications: Active Medications Generic Name Dose Route Start Last Admin Trade Name Freq PRN Reason Stop Dose Admin Acetaminophen 650 mg 01/03/25 16:05 Acetaminophen 325 Mg Tablet PO Q4H PRN Mild Pain (1-3) or Fever Atenolol 50 mg 01/05/25 16:15 01/05/25 16:27 Atenolol 50 Mg Tablet PO 50 mg DAILY [place] Administration Atorvastatin Calcium 10 mg 01/04/25 09:00 01/05/25 09:43 Atorvastatin 10 Mg Tablet PO 10 mg DAILY [place] Administration Dextrose 12.5 gm 01/03/25 22:40 Dextrose 50% 25 Gm/50 Ml Syringe IV PUSH PRN PRN Hypoglycemia Protocol Donepezil HCl 10 mg 01/04/25 09:00 01/05/25 09:43 Donepezil Hcl 10 Mg Tablet PO 10 mg DAILY [place] Administration Enoxaparin Sodium 40 mg 01/04/25 09:00 01/05/25 09:42 Enoxaparin 40 Mg/0.4 Ml Syringe SUB-Q 40 mg DAILY [place] Administration Escitalopram Oxalate 10 mg 01/04/25 09:00 01/05/25 09:43 Escitalopram Oxalate 10 Mg Tablet PO 10 mg DAILY [place] Administration Glucagon 1 mg 01/03/25 22:40 Glucagon For Inj 1 Mg Vial IM PRN PRN Hypoglycemia Protocol Glucose 15 gm 01/03/25 22:40 Glucose Oral Gel 15 Gm Of Glucse In 37.5 Gm Tube PO PRN PRN Hypoglycemia Protocol Dextrose 1,000 mls @ 100 mls/hr 01/03/25 22:40 Dextrose 5% 1,000 Ml IVPB PRN PRN Hypoglycemia Protocol Vancomycin HCl 1,250 mg in 250 mls @ 166.667 mls/hr 01/06/25 22:00 Vancomycin 1,250 Mg/Ns 250 Ml IVPB Q18H [facility] Insulin Aspart 2 - 5 units 01/04/25 08:00 01/05/25 17:21 Insulin Aspart (*Bkc) 100 Units/Ml SUB-Q Not Given TIDWM [place] Protocol Losartan Potassium 50 mg 01/04/25 09:00 01/05/25 09:42 Losartan Potassium 50 Mg Tablet PO 50 mg DAILY [place] Administration Mirtazapine 15 mg 01/03/25 21:00 01/05/25 21:56 Mirtazapine 15 Mg Tablet PO 15 mg HS [place] Administration Pantoprazole Sodium 40 mg 01/04/25 09:00 01/05/25 21:56 Pantoprazole 40 Mg Tablet PO 40 mg Q12HR [place] Administration Perflutren Lipid Microsphere 0 ml 01/03/25 18:38 Perflutren Lipid Microspheres 1.5 Ml Vial Diluted To 10 Ml Total Volume IV PUSH 01/06/25 18:38 ONCE PRN adequate visualization Protocol Tamsulosin HCl 0.4 mg 01/04/25 09:00 01/05/25 09:43 Tamsulosin Hcl 0.4 Mg Capsule PO 0.4 mg QAM [place] Administration Thiamine HCl 50 mg 01/04/25 09:00 01/05/25 09:43 Thiamine Hcl 50 Mg Tablet PO 50 mg DAILY [place] Administration Trazodone HCl 50 mg 01/04/25 21:00 01/05/25 21:56 Trazodone Hcl 50 Mg Tablet PO 50 mg QHS [place] Administration Radiology Results: ITS Impressions Chest X-Ray 01/03/25 14:08 Impression: No acute cardiopulmonary abnormality. Chest CTA 01/03/25 15:26 IMPRESSION: Negative for pulmonary embolism. No acute process Head CT 01/03/25 17:01 Impression: 1.No acute intracranial abnormality. Abdomen/Pelvis CT 01/03/25 17:05 IMPRESSION: 1. No acute intra-abdominal process, absence of intravenous contrast limits evaluation but there is no gross abscess identified 2. Incidental findings above. Correlate for bladder outlet obstruction Labs Labs: Laboratory Results - last 24 hr 01/05/25 01/05/25 01/05/25 08:03 11:40 16:38 POC Capillary Glucose 155 H 303 H 169 H Nasal MRSA (PCR) 01/05/25 01/06/25 20:36 03:59 POC Capillary Glucose 232 H Nasal MRSA (PCR) Not detected Quality VTE Prophylaxis VTE prophylaxis: mechanical ordered and pharmacologic ordered
[2025-01-06 08:14] LABS: Hematocrit 31.4 % (42.0-52.0); Hemoglobin 10.3 g/dL (14.0-18.0); Immature Granulocyte Percent A 0.4 % (0-0.5); Lymphocytes Absolute Auto 0.42 K/mm3 (0.9-3.2); Mean Corpuscular HGB Conc 32.8 g/dl (32-36); Mean Corpuscular Hemoglobin 32.9 pg (26-34); Mean Corpuscular Volume 100.3 fl (80-100); Nucleated Red Blood Cells Absolute Auto 0.000 K/mm3 (0.0-0.012); Nucleated Red Blood Cells Perc 0.0 % (0.0-0.2); Platelet Count Result 195 k/mm3 (150-375); Red Blood Count 3.13 M/mm3 (4.6-6.20); White Blood Count 5.7 K/mm3 (4.5-10.0)
[2025-01-06] MEDS: TAMSULOSIN HCL 0.4 MG CAPSULE PO (09:15)
[2025-01-06] MEDS: LOSARTAN POTASSIUM 50 MG TABLET PO (09:16)
[2025-01-06] MEDS: THIAMINE HCL 50 MG TABLET PO (09:16)
[2025-01-06] MEDS: ATORVASTATIN 10 MG TABLET PO (09:16)
[2025-01-06] MEDS: PANTOPRAZOLE 40 MG TABLET PO ×2 (09:17→20:42)
[2025-01-06] MEDS: ESCITALOPRAM OXALATE 10 MG TABLET PO (09:17)
[2025-01-06] MEDS: DONEPEZIL HCL 10 MG TABLET PO (09:17)
[2025-01-06] MEDS: ENOXAPARIN 40 MG/0.4 ML SYRINGE SUB-Q (09:17)
[2025-01-06 13:58] LABS: Anion Gap 1 mmol/L (4-12); Carbon Dioxide 34 mmol/L (22-30); Chloride 101 mmol/L (98-107); Potassium 4.0 mmol/L (3.4-5.0); Sodium 136 mmol/L (137-145)
[2025-01-06 13:59] LABS: Blood Urea Nitrogen 13 mg/dL (9-20); Calcium 8.5 mg/dL (8.4-10.2); Estimated CRCL calculation 73 ml/min; Estimated Glomerular Filt Rate > 60; Glucose 151 mg/dL (65-110)
[2025-01-06] MEDS: INSULIN ASPART (*BKC) 100 UNITS/ML SUB-Q (17:33)
[2025-01-06] MEDS: MIRTAZAPINE 15 MG TABLET PO (20:42)
[2025-01-06] MEDS: VANCOMYCIN 1,250 MG/NS 250 ML 1,250 MG/250 ML BAG 166.67 MG IVPB (21:29)
[2025-01-07] VITALS (11 sets, daily range): BP systolic 153–169; BP diastolic 78–85; PULSE 53–82; RESP 16–20; TEMP 36.1–36.6; O2SAT 90–95
[2025-01-07 05:51] LABS: Hematocrit 31.6 % (42.0-52.0); Hemoglobin 10.2 g/dL (14.0-18.0); Immature Granulocyte Percent A 0.6 % (0-0.5); Lymphocytes Absolute Auto 0.39 K/mm3 (0.9-3.2); Mean Corpuscular HGB Conc 32.3 g/dl (32-36); Mean Corpuscular Hemoglobin 32.4 pg (26-34); Mean Corpuscular Volume 100.3 fl (80-100); Nucleated Red Blood Cells Absolute Auto 0.000 K/mm3 (0.0-0.012); Nucleated Red Blood Cells Perc 0.0 % (0.0-0.2); Platelet Count Result 213 k/mm3 (150-375); Red Blood Count 3.15 M/mm3 (4.6-6.20); White Blood Count 5.0 K/mm3 (4.5-10.0)
[2025-01-07 06:17] LABS: Anion Gap 1 mmol/L (4-12); Blood Urea Nitrogen 16 mg/dL (9-20); Calcium 8.3 mg/dL (8.4-10.2); Carbon Dioxide 32 mmol/L (22-30); Chloride 102 mmol/L (98-107); Estimated CRCL calculation 71 ml/min; Estimated Glomerular Filt Rate > 60; Glucose 139 mg/dL (65-110); Potassium 3.8 mmol/L (3.4-5.0); Sodium 135 mmol/L (137-145)
--- NOTE | 2025-01-07 08:08 | P.PNIM_ITS ---
Progress Note: A&P Assessment and Plan (1) Acute respiratory failure: Code(s): J96.00 - Acute respiratory failure, unspecified whether with hypoxia or hypercapnia Status: Acute Assessment and Plan: - presented with increased shortness of breath - on 2L NC, no home O2 requirement - influenza A/B, RSV and COVID negative - CTA chest with no PE or other acute process. Moderate emphysematous changes. - lungs clear on exam - started on doxycycline and Rocephin for possible PNA - will hold off on further antibiotics for pneumonia for now - weaned to RA - remains off O2 supp (2) Positive blood culture: Code(s): R78.81 - Bacteremia Status: Acute Assessment and Plan: - blood cultures obtained 01/03 - 03/08 bottles positive for Staph Hominis - TTE with no signs of endocarditis - no wounds - suspect contaminant, but patient presented with rigors, procal 28 (which could be from malignancy) - started on vancomycin overnight 01/06, will continue for now - repeat blood cultures pending (3) Alzheimer's dementia: Code(s): G30.9 - Alzheimer's disease, unspecified; F02.80 - Dementia in other diseases classified elsewhere, unspecified severity, without behavioral disturbance, psychotic disturbance, mood disturbance, and anxiety Status: Acute Assessment and Plan: - progressively worsening memory loss. Alert and oriented x3 however has very poor short-term memory and poor situational awareness. Very poor PO intake at home, failure to thrive. Lives at home alone with aide services. 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 Plan is likely for him to return home with home care/aide services until his follow-up appointment at [place] next week to determine next steps (if any) for rectal mass. Depending on this appointment, daughter may elect hospice services for the patient. -Continue home medications (4) Lactic acidosis: Code(s): E87.20 - Acidosis, unspecified Status: Acute Assessment and Plan: - initial LA 4.2, normalized with IV fluids - CT A/P with no acute process - follow-up blood cultures - encourage PO intake (5) Near syncope: Code(s): R55 - Syncope and collapse Status: Acute Assessment and Plan: - orthostatic vitals negative - echo with EF 60-65%, G1 DD - suspect due to dehydration - PT/OT recommended home care - monitor on tele (6) Enlarged prostate: Code(s): N40.0 - Benign prostatic hyperplasia without lower urinary tract symptoms Status: Acute Assessment and Plan: -PSA WNL -Started on Flomax - bladder scans have been negative for retention (7) Rectal mass: Code(s): K62.89 - Other specified diseases of anus and rectum Status: Acute Assessment and Plan: - recent admission for rectal bleeding. Found to have rectal mass and was referred to colorectal surgery at [facility] (8) Type 2 diabetes mellitus without complications: Code(s): E11.9 - Type 2 diabetes mellitus without complications Status: Chronic Assessment and Plan: - hold home PO meds - low dose SSI - continue Accu-Cheks a.c. HS - Diabetic diet (9) Essential (primary) hypertension: Code(s): I10 - Essential (primary) hypertension Status: Chronic Assessment and Plan: - BP elevated likely due to missed BP meds - resume home losartan and atenolol. Titrate PRN (10) Malnutrition: Code(s): E46 - Unspecified protein-calorie malnutrition Status: Acute Assessment and Plan: Severe protein-calorie malnutrition - start PO supplements - dietitian following Plan Code status: DNR DVT prophylaxis: Lovenox Dispo: likely home with [facility] once repeat cultures result Subjective Date/time seen: 01/07/25 08:08 Interval history: Patient resting comfortably in bed at time of examination. Denies any chest pain, shortness of breath, nausea/vomiting, or abdominal pain. Repeat blood culture still pending at this time, however first set showed growth of S. Hominis in aerobic bottle only, likely contaminate. Plan is to return home until colorectal surgery appointment at [place]. Review of Systems Review of Systems: 12 systems were reviewed and are negativ e except for as per HPI. Exam Narrative: General: chronically ill appearing, frail Eyes: EOMI ENT: neck supple Cardiovascular: Regular rate and rhythm Respiratory: Clear to auscultation, respirations even and unlabored on RA Gastrointestinal: Soft, non tender Genitourinary: no suprapubic tenderness Musculoskeletal: No edema Skin: warm, dry Neuro: Alert and oriented x3, but forgetful in conversation. Psych: Mood appropriate Objective Data Vital Signs Vital Signs: Vital Signs - 24 hr 01/06/25 09:16 01/06/25 09:20 01/06/25 09:20 Temperature Pulse Rate 62 62 62 Respiratory Rate 20 Blood Pressure Pulse Oximetry 91 Oxygen Delivery Room Air 01/06/25 12:00 01/06/25 14:00 01/06/25 16:00 Temperature 98.2 F Pulse Rate 58 L 62 56 L Respiratory Rate 20 Blood Pressure 170/80 H Pulse Oximetry 91 Oxygen Delivery 01/06/25 20:10 01/06/25 20:40 01/06/25 21:01 Temperature 97.4 F L Pulse Rate 55 L 54 L Respiratory Rate 20 Blood Pressure 105/93 H Pulse Oximetry 96 96 Oxygen Delivery Room Air 01/07/25 00:00 01/07/25 04:00 01/07/25 05:49 Temperature 97 F L Pulse Rate 53 L 53 L 60 Respiratory Rate 20 Blood Pressure 169/80 H Pulse Oximetry 90 Oxygen Delivery Intake/Output Intake/Output: Intake & Output 01/04/25 01/05/25 01/06/25 01/07/25 22:59 23:59 23:59 23:59 Intake Total 2451 1470 1474 400 Output Total 3400 4440 8524 1974 [phone] Meds/Results Medications: Active Medications Generic Name Dose Route Start Last Admin Trade Name Freq PRN Reason Stop Dose Admin Acetaminophen 650 mg 01/03/25 16:05 Acetaminophen 325 Mg Tablet PO Q4H PRN Mild Pain (1-3) or Fever Atenolol 50 mg 01/05/25 16:15 01/06/25 09:16 Atenolol 50 Mg Tablet PO 50 mg DAILY [place] Administration Atorvastatin Calcium 10 mg 01/04/25 09:00 01/06/25 09:16 Atorvastatin 10 Mg Tablet PO 10 mg DAILY [place] Administration Dextrose 12.5 gm 01/03/25 22:40 Dextrose 50% 25 Gm/50 Ml Syringe IV PUSH PRN PRN Hypoglycemia Protocol Donepezil HCl 10 mg 01/04/25 09:00 01/06/25 09:17 Donepezil Hcl 10 Mg Tablet PO 10 mg DAILY [place] Administration Enoxaparin Sodium 40 mg 01/04/25 09:00 01/06/25 09:17 Enoxaparin 40 Mg/0.4 Ml Syringe SUB-Q 40 mg DAILY [place] Administration Escitalopram Oxalate 10 mg 01/04/25 09:00 01/06/25 09:17 Escitalopram Oxalate 10 Mg Tablet PO 10 mg DAILY [place] Administration Glucagon 1 mg 01/03/25 22:40 Glucagon For Inj 1 Mg Vial IM PRN PRN Hypoglycemia Protocol Glucose 15 gm 01/03/25 22:40 Glucose Oral Gel 15 Gm Of Glucse In 37.5 Gm Tube PO PRN PRN Hypoglycemia Protocol Dextrose 1,000 mls @ 100 mls/hr 01/03/25 22:40 Dextrose 5% 1,000 Ml IVPB PRN PRN Hypoglycemia Protocol Vancomycin HCl 1,250 mg in 250 mls @ 166.667 mls/hr 01/06/25 22:00 01/06/25 21:29 Vancomycin 1,250 Mg/Ns 250 Ml IVPB 166.67 mls/hr Q18H [place] Administration Insulin Aspart 2 - 5 units 01/04/25 08:00 01/06/25 17:33 Insulin Aspart (*Bkc) 100 Units/Ml SUB-Q 2 units TIDWM [place] Administration Protocol Losartan Potassium 50 mg 01/04/25 09:00 01/06/25 09:16 Losartan Potassium 50 Mg Tablet PO 50 mg DAILY [place] Administration Mirtazapine 15 mg 01/03/25 21:00 01/06/25 20:42 Mirtazapine 15 Mg Tablet PO 15 mg HS [place] Administration Pantoprazole Sodium 40 mg 01/04/25 09:00 01/06/25 20:42 Pantoprazole 40 Mg Tablet PO 40 mg Q12HR [place] Administration Tamsulosin HCl 0.4 mg 01/04/25 09:00 01/06/25 09:15 Tamsulosin Hcl 0.4 Mg Capsule PO 0.4 mg QAM [place] Administration Thiamine HCl 50 mg 01/04/25 09:00 01/06/25 09:16 Thiamine Hcl 50 Mg Tablet PO 50 mg DAILY [place] Administration Trazodone HCl 50 mg 01/04/25 21:00 01/06/25 20:42 Trazodone Hcl 50 Mg Tablet PO 50 mg QHS [place] Administration Radiology Results: ITS Impressions Chest X-Ray 01/03/25 14:08 Impression: No acute cardiopulmonary abnormality. Chest CTA 01/03/25 15:26 IMPRESSION: Negative for pulmonary embolism. No acute process Head CT 01/03/25 17:01 Impression: 1.No acute intracranial abnormality. Abdomen/Pelvis CT 01/03/25 17:05 IMPRESSION: 1. No acute intra-abdominal process, absence of intravenous contrast limits evaluation but there is no gross abscess identified 2. Incidental findings above. Correlate for bladder outlet obstruction Labs Labs: Laboratory Results - last 24 hr 01/06/25 01/06/25 01/06/25 08:07 08:09 11:46 WBC 5.7 RBC 3.13 L Hgb 10.3 L Hct 31.4 L MCV 100.3 H MCH 32.9 MCHC 32.8 RDW 14.6 H Plt Count 195 MPV 9.1 Immature Gran % (Auto) 0.4 Neut % (Auto) 80.2 H Lymph % (Auto) 7.4 L [place] % (Auto) 8.3 Eos % (Auto) 3.5 Baso % (Auto) 0.2 Lymph # (Auto) 0.42 L [place] # (Auto) 0.5 Eos # (Auto) 0.2 Baso # (Auto) 0.0 Abs Immat Gran (auto) 0.02 Absolute Neuts (auto) 4.6 Absolute Nucleated RBC 0.000 Nucleated RBC % 0.0 Sodium 136 L Potassium 4.0 Chloride 101 Carbon Dioxide 34 H Anion Gap 1 L BUN 13 Creatinine 0.61 L Estim Creat Clear Calc 73 Estimated GFR > 60 Glucose 151 H POC Capillary Glucose 160 H 178 H Calcium 8.5 01/06/25 01/06/25 01/07/25 16:36 21:04 05:30 WBC 5.0 RBC 3.15 L Hgb 10.2 L Hct 31.6 L MCV 100.3 H MCH 32.4 MCHC 32.3 RDW 14.8 H Plt Count 213 MPV 9.5 Immature Gran % (Auto) 0.6 H Neut % (Auto) 77.0 H Lymph % (Auto) 7.8 L [place] % (Auto) 9.2 H Eos % (Auto) 4.6 H Baso % (Auto) 0.8 Lymph # (Auto) 0.39 L [place] # (Auto) 0.5 Eos # (Auto) 0.2 Baso # (Auto) 0.0 Abs Immat Gran (auto) 0.03 Absolute Neuts (auto) 3.8 Absolute Nucleated RBC 0.000 Nucleated RBC % 0.0 Sodium 135 L Potassium 3.8 Chloride 102 Carbon Dioxide 32 H Anion Gap 1 L BUN 16 Creatinine 0.63 L Estim Creat Clear Calc 71 Estimated GFR > 60 Glucose 139 H POC Capillary Glucose 210 H 204 H Calcium 8.3 L 01/07/25 08:01 WBC RBC Hgb Hct MCV MCH MCHC RDW Plt Count MPV Immature Gran % (Auto) Neut % (Auto) Lymph % (Auto) [place] % (Auto) Eos % (Auto) Baso % (Auto) Lymph # (Auto) [place] # (Auto) Eos # (Auto) Baso # (Auto) Abs Immat Gran (auto) Absolute Neuts (auto) Absolute Nucleated RBC Nucleated RBC % Sodium Potassium Chloride Carbon Dioxide Anion Gap BUN Creatinine Estim Creat Clear Calc Estimated GFR Glucose POC Capillary Glucose 165 H Calcium Quality VTE Prophylaxis VTE prophylaxis: mechanical ordered and pharmacologic ordered
[2025-01-07] MEDS: ATORVASTATIN 10 MG TABLET PO (09:57)
[2025-01-07] MEDS: DONEPEZIL HCL 10 MG TABLET PO (09:57)
[2025-01-07] MEDS: LOSARTAN POTASSIUM 50 MG TABLET PO (09:57)
[2025-01-07] MEDS: THIAMINE HCL 50 MG TABLET PO (09:57)
[2025-01-07] MEDS: PANTOPRAZOLE 40 MG TABLET PO ×2 (09:57→19:59)
[2025-01-07] MEDS: TAMSULOSIN HCL 0.4 MG CAPSULE PO (09:58)
[2025-01-07] MEDS: ESCITALOPRAM OXALATE 10 MG TABLET PO (09:58)
[2025-01-07] MEDS: ENOXAPARIN 40 MG/0.4 ML SYRINGE SUB-Q (09:58)
[2025-01-07] MEDS: INSULIN ASPART (*BKC) 100 UNITS/ML SUB-Q (13:39)
[2025-01-07] MEDS: MIRTAZAPINE 15 MG TABLET PO (19:59)
[2025-01-08] VITALS (10 sets, daily range): BP systolic 114–157; BP diastolic 56–76; PULSE 55–84; RESP 16–18; TEMP 36.1–36.7; O2SAT 90–95
[2025-01-08 03:51] LABS: Hematocrit 30.9 % (42.0-52.0); Hemoglobin 10.0 g/dL (14.0-18.0); Immature Granulocyte Percent A 0.5 % (0-0.5); Lymphocytes Absolute Auto 0.48 K/mm3 (0.9-3.2); Mean Corpuscular HGB Conc 32.4 g/dl (32-36); Mean Corpuscular Hemoglobin 32.4 pg (26-34); Mean Corpuscular Volume 100.0 fl (80-100); Nucleated Red Blood Cells Absolute Auto 0.000 K/mm3 (0.0-0.012); Nucleated Red Blood Cells Perc 0.0 % (0.0-0.2); Platelet Count Result 225 k/mm3 (150-375); Red Blood Count 3.09 M/mm3 (4.6-6.20); White Blood Count 4.4 K/mm3 (4.5-10.0)
[2025-01-08 04:09] LABS: Anion Gap 1 mmol/L (4-12); Blood Urea Nitrogen 13 mg/dL (9-20); Calcium 8.4 mg/dL (8.4-10.2); Carbon Dioxide 33 mmol/L (22-30); Chloride 101 mmol/L (98-107); Estimated CRCL calculation 73 ml/min; Estimated Glomerular Filt Rate > 60; Glucose 137 mg/dL (65-110); Potassium 3.9 mmol/L (3.4-5.0); Sodium 135 mmol/L (137-145)
[2025-01-08] MEDS: TAMSULOSIN HCL 0.4 MG CAPSULE PO (09:34)
[2025-01-08] MEDS: PANTOPRAZOLE 40 MG TABLET PO ×2 (09:34→19:59)
[2025-01-08] MEDS: LOSARTAN POTASSIUM 50 MG TABLET PO (09:34)
[2025-01-08] MEDS: THIAMINE HCL 50 MG TABLET PO (09:34)
[2025-01-08] MEDS: ATORVASTATIN 10 MG TABLET PO (09:34)
[2025-01-08] MEDS: DONEPEZIL HCL 10 MG TABLET PO (09:34)
[2025-01-08] MEDS: ESCITALOPRAM OXALATE 10 MG TABLET PO (09:34)
[2025-01-08] MEDS: ENOXAPARIN 40 MG/0.4 ML SYRINGE SUB-Q (09:37)
[2025-01-08] MEDS: cefTRIAXone 2 GM in SODIUM CHLORIDE 0.9% IV 100 ML 200 ML IVPB (09:47)
--- NOTE | 2025-01-08 09:51 | P.PNIM_ITS ---
Progress Note: A&P Assessment and Plan (1) Acute respiratory failure: Code(s): J96.00 - Acute respiratory failure, unspecified whether with hypoxia or hypercapnia Status: Acute Assessment and Plan: - presented with increased shortness of breath - on 2L NC, no home O2 requirement - influenza A/B, RSV and COVID negative - CTA chest with no PE or other acute process. Moderate emphysematous changes. - lungs clear on exam - started on doxycycline and Rocephin for possible PNA - will hold off on further antibiotics for pneumonia for now - weaned to RA - remains off O2 supp - No changes (2) Bacteremia: Code(s): R78.81 - Bacteremia Status: Acute Assessment and Plan: - blood cultures obtained 01/03 - 03/08 bottles positive for Staph Hominis - TTE with no signs of endocarditis - no wounds - suspect contaminant, but patient presented with rigors, procal 28 (which could be from malignancy) - started on vancomycin overnight 01/06, will continue for now - repeat blood cultures show growth of E.coli - Will restart Ceftriaxone per [place] pharm recommendations - Continue to monitor culture growth, sensitives (3) Alzheimer's dementia: Code(s): G30.9 - Alzheimer's disease, unspecified; F02.80 - Dementia in other diseases classified elsewhere, unspecified severity, without behavioral disturbance, psychotic disturbance, mood disturbance, and anxiety Status: Acute Assessment and Plan: - progressively worsening memory loss. Alert and oriented x3 however has very poor short-term memory and poor situational awareness. Very poor PO intake at home, failure to thrive. Lives at home alone with aide services. 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 Plan is likely for him to return home with home care/aide services until his follow-up appointment at [place] next week to determine next steps (if any) for rectal mass. Depending on this appointment, daughter may elect hospice services for the patient. -Continue home medications (4) Lactic acidosis: Code(s): E87.20 - Acidosis, unspecified Status: Acute Assessment and Plan: - initial LA 4.2, normalized with IV fluids - CT A/P with no acute process - follow-up blood cultures - encourage PO intake - Resolved (5) Near syncope: Code(s): R55 - Syncope and collapse Status: Acute Assessment and Plan: - orthostatic vitals negative - echo with EF 60-65%, G1 DD - suspect due to dehydration - PT/OT recommended home care - monitor on tele (6) Enlarged prostate: Code(s): N40.0 - Benign prostatic hyperplasia without lower urinary tract symptoms Status: Acute Assessment and Plan: -PSA WNL -Started on Flomax - bladder scans have been negative for retention (7) Rectal mass: Code(s): K62.89 - Other specified diseases of anus and rectum Status: Acute Assessment and Plan: - recent admission for rectal bleeding. Found to have rectal mass and was referred to colorectal surgery at [facility] (8) Type 2 diabetes mellitus without complications: Code(s): E11.9 - Type 2 diabetes mellitus without complications Status: Chronic Assessment and Plan: - hold home PO meds - low dose SSI - continue Accu-Cheks a.c. HS - Diabetic diet (9) Essential (primary) hypertension: Code(s): I10 - Essential (primary) hypertension Status: Chronic Assessment and Plan: - BP elevated likely due to missed BP meds - resume home losartan and atenolol. Titrate PRN (10) Malnutrition: Code(s): E46 - Unspecified protein-calorie malnutrition Status: Acute Assessment and Plan: Severe protein-calorie malnutrition - start PO supplements - dietitian following Plan Code status: DNR DVT prophylaxis: Lovenox Dispo: likely home with [facility] once repeat cultures result Subjective Date/time seen: 01/08/25 09:51 Interval history: Patient resting comfortably in bed at time of examination. Denies any chest pain, shortness of breath, nausea/vomiting, or abdominal pain. Repeat aerobic blood culture shows growth of E. Coli, no sensitivites. Will restart Ceftriaxone per ID pharm recommendations. Remains afebrile without leukocytosis or major electrolyte abnormalities. Continue to monitor cultures. Review of Systems 2 Review of Systems: 12 systems were reviewed and are negativ e except for as per HPI. Exam Narrative: General: chronically ill appearing, frail Eyes: EOMI ENT: neck supple Cardiovascular: Regular rate and rhythm Respiratory: Clear to auscultation, respirations even and unlabored on RA Gastrointestinal: Soft, non tender Genitourinary: no suprapubic tenderness Musculoskeletal: No edema Skin: warm, dry Neuro: Alert and oriented x3, but forgetful in conversation. Psych: Mood appropriate Objective Data Vital Signs Vital Signs: Vital Signs - 24 hr 01/07/25 09:59 01/07/25 12:00 01/07/25 14:00 Temperature 97.9 F Pulse Rate 62 59 L 82 Respiratory Rate 18 Blood Pressure 153/78 H Pulse Oximetry 91 Oxygen Delivery 01/07/25 16:00 01/07/25 20:00 01/07/25 20:28 Temperature 97.5 F L Pulse Rate 61 61 60 Respiratory Rate 16 Blood Pressure 162/85 H Pulse Oximetry 95 Oxygen Delivery 01/07/25 22:11 01/08/25 00:00 01/08/25 04:00 Temperature Pulse Rate 77 55 L Respiratory Rate Blood Pressure Pulse Oximetry 95 Oxygen Delivery Room Air 01/08/25 06:00 01/08/25 09:38 Temperature 98.1 F Pulse Rate 61 83 Respiratory Rate 16 Blood Pressure 157/76 H Pulse Oximetry 94 Oxygen Delivery Intake/Output Intake/Output: Intake & Output 01/05/25 01/06/25 01/07/25 01/08/25 23:59 23:59 23:59 23:59 Intake Total 1470 1474 2488 660 Output Total 2227 2087 4122 1010 [facility] [phone] Meds/Results Medications: Active Medications Generic Name Dose Route Start Last Admin Trade Name Freq PRN Reason Stop Dose Admin Acetaminophen 650 mg 01/03/25 16:05 Acetaminophen 325 Mg Tablet PO Q4H PRN Mild Pain (1-3) or Fever Atenolol 50 mg 01/05/25 16:15 01/08/25 09:38 Atenolol 50 Mg Tablet PO 50 mg DAILY [place] Administration Atorvastatin Calcium 10 mg 01/04/25 09:00 01/08/25 09:34 Atorvastatin 10 Mg Tablet PO 10 mg DAILY [place] Administration Dextrose 12.5 gm 01/03/25 22:40 Dextrose 50% 25 Gm/50 Ml Syringe IV PUSH PRN PRN Hypoglycemia Protocol Donepezil HCl 10 mg 01/04/25 09:00 01/08/25 09:34 Donepezil Hcl 10 Mg Tablet PO 10 mg DAILY [place] Administration Enoxaparin Sodium 40 mg 01/04/25 09:00 01/08/25 09:37 Enoxaparin 40 Mg/0.4 Ml Syringe SUB-Q 40 mg DAILY [place] Administration Escitalopram Oxalate 10 mg 01/04/25 09:00 01/08/25 09:34 Escitalopram Oxalate 10 Mg Tablet PO 10 mg DAILY [place] Administration Glucagon 1 mg 01/03/25 22:40 Glucagon For Inj 1 Mg Vial IM PRN PRN Hypoglycemia Protocol Glucose 15 gm 01/03/25 22:40 Glucose Oral Gel 15 Gm Of Glucse In 37.5 Gm Tube PO PRN PRN Hypoglycemia Protocol Dextrose 1,000 mls @ 100 mls/hr 01/03/25 22:40 Dextrose 5% 1,000 Ml IVPB PRN PRN Hypoglycemia Protocol Ceftriaxone Sodium 2 gm/ 100 mls @ 200 mls/hr 01/08/25 09:00 01/08/25 09:47 Sodium Chloride IVPB 200 mls/hr Q24H [place] Administration Insulin Aspart 2 - 5 units 01/04/25 08:00 01/08/25 09:28 Insulin Aspart (*Bkc) 100 Units/Ml SUB-Q Not Given TIDWM [facility] Protocol Losartan Potassium 50 mg 01/04/25 09:00 01/08/25 09:34 Losartan Potassium 50 Mg Tablet PO 50 mg DAILY [place] Administration Mirtazapine 15 mg 01/03/25 21:00 01/07/25 19:59 Mirtazapine 15 Mg Tablet PO 15 mg HS [place] Administration Pantoprazole Sodium 40 mg 01/04/25 09:00 01/08/25 09:34 Pantoprazole 40 Mg Tablet PO 40 mg Q12HR [place] Administration Tamsulosin HCl 0.4 mg 01/04/25 09:00 01/08/25 09:34 Tamsulosin Hcl 0.4 Mg Capsule PO 0.4 mg QAM [place] Administration Thiamine HCl 50 mg 01/04/25 09:00 01/08/25 09:34 Thiamine Hcl 50 Mg Tablet PO 50 mg DAILY [place] Administration Trazodone HCl 50 mg 01/04/25 21:00 01/07/25 19:59 Trazodone Hcl 50 Mg Tablet PO 50 mg QHS [place] Administration Radiology Results: ITS Impressions Chest X-Ray 01/03/25 14:08 Impression: No acute cardiopulmonary abnormality. Chest CTA 01/03/25 15:26 IMPRESSION: Negative for pulmonary embolism. No acute process Head CT 01/03/25 17:01 Impression: 1.No acute intracranial abnormality. Abdomen/Pelvis CT 01/03/25 17:05 IMPRESSION: 1. No acute intra-abdominal process, absence of intravenous contrast limits evaluation but there is no gross abscess identified 2. Incidental findings above. Correlate for bladder outlet obstruction Labs Labs: Laboratory Results - last 24 hr 01/07/25 01/07/25 01/07/25 11:41 16:29 19:59 WBC RBC Hgb Hct MCV MCH MCHC RDW Plt Count MPV Immature Gran % (Auto) Neut % (Auto) Lymph % (Auto) [place] % (Auto) Eos % (Auto) Baso % (Auto) Lymph # (Auto) [place] # (Auto) Eos # (Auto) Baso # (Auto) Abs Immat Gran (auto) Absolute Neuts (auto) Absolute Nucleated RBC Nucleated RBC % Sodium Potassium Chloride Carbon Dioxide Anion Gap BUN Creatinine Estim Creat Clear Calc Estimated GFR Glucose POC Capillary Glucose 374 H 194 H 261 H Calcium 01/08/25 01/08/25 03:37 08:06 WBC 4.4 L RBC 3.09 L Hgb 10.0 L Hct 30.9 L MCV 100.0 MCH 32.4 MCHC 32.4 RDW 14.5 Plt Count 225 MPV 9.5 Immature Gran % (Auto) 0.5 Neut % (Auto) 71.3 Lymph % (Auto) 10.8 L [place] % (Auto) 11.1 H Eos % (Auto) 5.6 H Baso % (Auto) 0.7 Lymph # (Auto) 0.48 L [place] # (Auto) 0.5 Eos # (Auto) 0.3 Baso # (Auto) 0.0 Abs Immat Gran (auto) 0.02 Absolute Neuts (auto) 3.2 Absolute Nucleated RBC 0.000 Nucleated RBC % 0.0 Sodium 135 L Potassium 3.9 Chloride 101 Carbon Dioxide 33 H Anion Gap 1 L BUN 13 Creatinine 0.61 L Estim Creat Clear Calc 73 Estimated GFR > 60 Glucose 137 H POC Capillary Glucose 145 H Calcium 8.4 Quality VTE Prophylaxis VTE prophylaxis: mechanical ordered and pharmacologic ordered
[2025-01-08] MEDS: MIRTAZAPINE 15 MG TABLET PO (19:59)
[2025-01-09] VITALS (10 sets, daily range): BP systolic 137–188; BP diastolic 72–94; PULSE 55–69; RESP 16–20; TEMP 36.3–36.5; O2SAT 92–98
[2025-01-09 05:56] LABS: Hematocrit 30.9 % (42.0-52.0); Hemoglobin 10.0 g/dL (14.0-18.0); Immature Granulocyte Percent A 0.5 % (0-0.5); Lymphocytes Absolute Auto 0.44 K/mm3 (0.9-3.2); Mean Corpuscular HGB Conc 32.4 g/dl (32-36); Mean Corpuscular Hemoglobin 32.4 pg (26-34); Mean Corpuscular Volume 100.0 fl (80-100); Nucleated Red Blood Cells Absolute Auto 0.000 K/mm3 (0.0-0.012); Nucleated Red Blood Cells Perc 0.0 % (0.0-0.2); Platelet Count Result 232 k/mm3 (150-375); Red Blood Count 3.09 M/mm3 (4.6-6.20); White Blood Count 4.3 K/mm3 (4.5-10.0)
[2025-01-09 06:20] LABS: Anion Gap 2 mmol/L (4-12); Blood Urea Nitrogen 15 mg/dL (9-20); Calcium 8.4 mg/dL (8.4-10.2); Carbon Dioxide 32 mmol/L (22-30); Chloride 99 mmol/L (98-107); Estimated CRCL calculation 70 ml/min; Estimated Glomerular Filt Rate > 60; Glucose 193 mg/dL (65-110); Potassium 3.7 mmol/L (3.4-5.0); Sodium 133 mmol/L (137-145)
--- NOTE | 2025-01-09 08:08 | P.PNIM_ITS ---
Progress Note: A&P Assessment and Plan (1) Acute respiratory failure: Code(s): J96.00 - Acute respiratory failure, unspecified whether with hypoxia or hypercapnia Status: Acute Assessment and Plan: - presented with increased shortness of breath - on 2L NC, no home O2 requirement - influenza A/B, RSV and COVID negative - CTA chest with no PE or other acute process. Moderate emphysematous changes. - lungs clear on exam - started on doxycycline and Rocephin for possible PNA - will hold off on further antibiotics for pneumonia for now - weaned to RA - remains off O2 supp - No changes (2) Bacteremia: Code(s): R78.81 - Bacteremia Status: Acute Assessment and Plan: - blood cultures obtained 01/03 - 03/08 bottles positive for Staph Hominis - TTE with no signs of endocarditis - no wounds - suspect contaminant, but patient presented with rigors, procal 28 (which could be from malignancy) - started on vancomycin overnight 01/06, will continue for now - repeat blood cultures show growth of E.coli - Will restart Ceftriaxone per ID pharm recommendations - Continue to monitor culture growth, sensitives - First set of BCs showing growth of S. Hominis with resistivity to erythromycin/Trimethroprim, but otherwise susceptabile. (3) Alzheimer's dementia: Code(s): G30.9 - Alzheimer's disease, unspecified; F02.80 - Dementia in other diseases classified elsewhere, unspecified severity, without behavioral disturbance, psychotic disturbance, mood disturbance, and anxiety Status: Acute Assessment and Plan: - progressively worsening memory loss. Alert and oriented x3 however has very poor short-term memory and poor situational awareness. Very poor PO intake at home, failure to thrive. Lives at home alone with aide services. 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 Plan is likely for him to return home with home care/aide services until his follow-up appointment at [facility] next week to determine next steps (if any) for rectal mass. Depending on this appointment, daughter may elect hospice services for the patient. -Continue home medications (4) Lactic acidosis: Code(s): E87.20 - Acidosis, unspecified Status: Acute Assessment and Plan: - initial LA 4.2, normalized with IV fluids - CT A/P with no acute process - follow-up blood cultures - encourage PO intake - Resolved (5) Near syncope: Code(s): R55 - Syncope and collapse Status: Acute Assessment and Plan: - orthostatic vitals negative - echo with EF 60-65%, G1 DD - suspect due to dehydration - PT/OT recommended home care - monitor on tele (6) Enlarged prostate: Code(s): N40.0 - Benign prostatic hyperplasia without lower urinary tract symptoms Status: Acute Assessment and Plan: -PSA WNL -Started on Flomax - bladder scans have been negative for retention (7) Rectal mass: Code(s): K62.89 - Other specified diseases of anus and rectum Status: Acute Assessment and Plan: - recent admission for rectal bleeding. Found to have rectal mass and was referred to colorectal surgery at [facility] (8) Type 2 diabetes mellitus without complications: Code(s): E11.9 - Type 2 diabetes mellitus without complications Status: Chronic Assessment and Plan: - hold home PO meds - low dose SSI - continue Accu-Cheks a.c. HS - Diabetic diet (9) Essential (primary) hypertension: Code(s): I10 - Essential (primary) hypertension Status: Chronic Assessment and Plan: - BP elevated likely due to missed BP meds - resume home losartan and atenolol. Titrate PRN (10) Malnutrition: Code(s): E46 - Unspecified protein-calorie malnutrition Status: Acute Assessment and Plan: Severe protein-calorie malnutrition - start PO supplements - dietitian following Plan Code status: DNR DVT prophylaxis: Lovenox Dispo: likely home with [facility] once repeat cultures result Subjective Date/time seen: 01/09/25 08:08 Interval history: Patient is resting comfortably in bed at time of exam. Denies any CP, SOB, n/v, or abd pain. First set of BCs showing growth of S. Hominis with resistivity to erythromycin/Trimethroprim, but otherwise susceptabile. Repeat BCs still showing growth of gram (-) bacilli - continue to monitor for bacterial growth and se nsitivities. Remains afebrile without leukocytosis. Hemodynamically stable. Review of Systems Review of Systems: 12 systems were reviewed and are negativ e except for as per HPI. Exam Narrative: General: chronically ill appearing, frail Eyes: EOMI ENT: neck supple Cardiovascular: Regular rate and rhythm Respiratory: Clear to auscultation, respirations even and unlabored on RA Gastrointestinal: Soft, non tender Genitourinary: no suprapubic tenderness Musculoskeletal: No edema Skin: warm, dry Neuro: Alert and oriented x3, but forgetful in conversation. Psych: Mood appropriate Objective Data Vital Signs Vital Signs: Vital Signs - 24 hr 01/08/25 09:38 01/08/25 12:00 01/08/25 14:00 Temperature 98.0 F Pulse Rate 83 60 84 Respiratory Rate 16 Blood Pressure 146/74 H Pulse Oximetry 95 Oxygen Delivery 01/08/25 16:00 01/08/25 20:00 01/08/25 20:00 Temperature Pulse Rate 60 60 Respiratory Rate Blood Pressure Pulse Oximetry Oxygen Delivery Room Air 01/08/25 21:14 01/09/25 00:00 01/09/25 04:00 Temperature 97 F L Pulse Rate 56 L 62 55 L Respiratory Rate 18 Blood Pressure 114/56 L Pulse Oximetry 90 Oxygen Delivery 01/09/25 06:00 Temperature 97.3 F L Pulse Rate 60 Respiratory Rate 16 Blood Pressure 137/72 Pulse Oximetry 97 Oxygen Delivery Intake/Output Intake/Output: Intake & Output 01/06/25 01/07/25 01/08/25 01/09/25 23:59 23:59 23:59 23:59 Intake Total 1474 2488 3091 300 Output Total 2085 4128 2830 1150 Balance -611 163 261 -850 Meds/Results Medications: Active Medications Generic Name Dose Route Start Last Admin Trade Name Freq PRN Reason Stop Dose Admin Acetaminophen 650 mg 01/03/25 16:05 Acetaminophen 325 Mg Tablet PO Q4H PRN Mild Pain (1-3) or Fever Atenolol 50 mg 01/05/25 16:15 01/08/25 09:38 Atenolol 50 Mg Tablet PO 50 mg DAILY [place] Administration Atorvastatin Calcium 10 mg 01/04/25 09:00 01/08/25 09:34 Atorvastatin 10 Mg Tablet PO 10 mg DAILY [place] Administration Dextrose 12.5 gm 01/03/25 22:40 Dextrose 50% 25 Gm/50 Ml Syringe IV PUSH PRN PRN Hypoglycemia Protocol Donepezil HCl 10 mg 01/04/25 09:00 01/08/25 09:34 Donepezil Hcl 10 Mg Tablet PO 10 mg DAILY [place] Administration Enoxaparin Sodium 40 mg 01/04/25 09:00 01/08/25 09:37 Enoxaparin 40 Mg/0.4 Ml Syringe SUB-Q 40 mg DAILY [place] Administration Escitalopram Oxalate 10 mg 01/04/25 09:00 01/08/25 09:34 Escitalopram Oxalate 10 Mg Tablet PO 10 mg DAILY [place] Administration Glucagon 1 mg 01/03/25 22:40 Glucagon For Inj 1 Mg Vial IM PRN PRN Hypoglycemia Protocol Glucose 15 gm 01/03/25 22:40 Glucose Oral Gel 15 Gm Of Glucse In 37.5 Gm Tube PO PRN PRN Hypoglycemia Protocol Dextrose 1,000 mls @ 100 mls/hr 01/03/25 22:40 Dextrose 5% 1,000 Ml IVPB PRN PRN Hypoglycemia Protocol Ceftriaxone Sodium 2 gm/ 100 mls @ 200 mls/hr 01/08/25 09:00 01/08/25 09:47 Sodium Chloride IVPB 200 mls/hr Q24H [place] Administration Insulin Aspart 2 - 5 units 01/04/25 08:00 01/08/25 19:13 Insulin Aspart (*Bkc) 100 Units/Ml SUB-Q Not Given TIDWM [facility] Protocol Losartan Potassium 50 mg 01/04/25 09:00 01/08/25 09:34 Losartan Potassium 50 Mg Tablet PO 50 mg DAILY [place] Administration Mirtazapine 15 mg 01/03/25 21:00 01/08/25 19:59 Mirtazapine 15 Mg Tablet PO 15 mg HS [place] Administration Pantoprazole Sodium 40 mg 01/04/25 09:00 01/08/25 19:59 Pantoprazole 40 Mg Tablet PO 40 mg Q12HR [place] Administration Tamsulosin HCl 0.4 mg 01/04/25 09:00 01/08/25 09:34 Tamsulosin Hcl 0.4 Mg Capsule PO 0.4 mg QAM [place] Administration Thiamine HCl 50 mg 01/04/25 09:00 01/08/25 09:34 Thiamine Hcl 50 Mg Tablet PO 50 mg DAILY [place] Administration Trazodone HCl 50 mg 01/04/25 21:00 01/08/25 19:59 Trazodone Hcl 50 Mg Tablet PO 50 mg QHS [place] Administration Radiology Results: ITS Impressions Chest X-Ray 01/03/25 14:08 Impression: No acute cardiopulmonary abnormality. Chest CTA 01/03/25 15:26 IMPRESSION: Negative for pulmonary embolism. No acute process Head CT 01/03/25 17:01 Impression: 1.No acute intracranial abnormality. Abdomen/Pelvis CT 01/03/25 17:05 IMPRESSION: 1. No acute intra-abdominal process, absence of intravenous contrast limits evaluation but there is no gross abscess identified 2. Incidental findings above. Correlate for bladder outlet obstruction Labs Labs: Laboratory Results - last 24 hr 01/08/25 01/08/25 01/08/25 08:06 12:04 16:37 WBC RBC Hgb Hct MCV MCH MCHC RDW Plt Count MPV Immature Gran % (Auto) Neut % (Auto) Lymph % (Auto) [place] % (Auto) Eos % (Auto) Baso % (Auto) Lymph # (Auto) [place] # (Auto) Eos # (Auto) Baso # (Auto) Abs Immat Gran (auto) Absolute Neuts (auto) Absolute Nucleated RBC Nucleated RBC % Sodium Potassium Chloride Carbon Dioxide Anion Gap BUN Creatinine Estim Creat Clear Calc Estimated GFR Glucose POC Capillary Glucose 145 H 176 H 163 H Calcium 01/08/25 01/09/25 01/09/25 21:18 05:19 07:50 WBC 4.3 L RBC 3.09 L Hgb 10.0 L Hct 30.9 L MCV 100.0 MCH 32.4 MCHC 32.4 RDW 14.6 H Plt Count 232 MPV 9.9 Immature Gran % (Auto) 0.5 Neut % (Auto) 73.3 H Lymph % (Auto) 10.1 L [place] % (Auto) 10.4 H Eos % (Auto) 4.8 H Baso % (Auto) 0.9 Lymph # (Auto) 0.44 L [place] # (Auto) 0.5 Eos # (Auto) 0.2 Baso # (Auto) 0.0 Abs Immat Gran (auto) 0.02 Absolute Neuts (auto) 3.2 Absolute Nucleated RBC 0.000 Nucleated RBC % 0.0 Sodium 133 L Potassium 3.7 Chloride 99 Carbon Dioxide 32 H Anion Gap 2 L BUN 15 Creatinine 0.64 L Estim Creat Clear Calc 70 Estimated GFR > 60 Glucose 193 H POC Capillary Glucose 326 H 178 H Calcium 8.4 Quality VTE Prophylaxis VTE prophylaxis: mechanical ordered and pharmacologic ordered
[2025-01-09] MEDS: ENOXAPARIN 40 MG/0.4 ML SYRINGE SUB-Q (10:16)
[2025-01-09] MEDS: PANTOPRAZOLE 40 MG TABLET PO ×2 (10:16→21:09)
[2025-01-09] MEDS: ESCITALOPRAM OXALATE 10 MG TABLET PO (10:17)
[2025-01-09] MEDS: THIAMINE HCL 50 MG TABLET PO (10:17)
[2025-01-09] MEDS: LOSARTAN POTASSIUM 50 MG TABLET PO (10:17)
[2025-01-09] MEDS: TAMSULOSIN HCL 0.4 MG CAPSULE PO (10:17)
[2025-01-09] MEDS: cefTRIAXone 2 GM in SODIUM CHLORIDE 0.9% IV 100 ML 200 ML IVPB (10:18)
[2025-01-09] MEDS: ATORVASTATIN 10 MG TABLET PO (10:18)
[2025-01-09] MEDS: DONEPEZIL HCL 10 MG TABLET PO (10:19)
--- NOTE | 2025-01-09 11:37 | PCNFU ---
Nutrition Follow-Up Complete: Severe protein calorie malnutrition related to chronic lack of access to food as evidenced by intakes <75% needs >3 months; severe muscle wasting (temporalis, clavicles, shoulders) and severe fat loss (cheeks, ribs) Goal: Intakes >75% Patient is meeting goal. No new goal. Pt current nutrition is DBCC with Glucerna shakes TID. Last recorded weight is 60.1 kg, stable Bowel Motility: Last reported BM 01/08 Labs Reviewed:Mg 1.3, Na 133, Hct 30.96, Hgb 10.0, Cr 0.64. Glu 193 Meds Noted: Vancomycin Skin:WNL Additional Notes: Patient is tolerating DBCC diet with oral intake > 75% of meals. Diet supplement Glucerna shake is providing an additional 240 kcal/10 gm protein. Agree with diet orders. Monitoring intakes, weights, labs, supplement tolerance, plan of care Follow up in 5 days
[2025-01-09] MEDS: INSULIN ASPART (*BKC) 100 UNITS/ML SUB-Q ×2 (12:26→17:36)
--- NOTE | 2025-01-09 16:24 | WPDIDCN ---
Assessment and Plan Assessment and plan (1) Bacteremia: Code(s): R78.81 - Bacteremia Status: Acute (2) Rectal mass: Code(s): K62.89 - Other specified diseases of anus and rectum Status: Acute Plan ASSESSMENT 1. BCx with staph hominis--contaminant only 2. PSAR bacteremia--this is real. Possibly from colon though this is not a typical bowel pathogen. Does have rectal mass and being worked up for possible coloreactal cancer. To have surgery at [facility] soon. UA not c/w UTI and CT chest without pneumonia 3. rectal mass 4. dementia 5. DM 6. HTN 7. acute respiratory failure on admit--resolved RECOMMENDATIONS: -change abx to cefepime high dose -repeat the blood cxs -f/u on BCx sensitivities and tailor abx further d/w pharmacy staff Exam done via telemedicine with the aid of a HIPPA protected audio/visual interface. Patient was at [facility] in [place], [place] while I was in my office in [place]. With patient consent. HPI Data of Consult Date/Time: 01/09/25 16:24 Requesting Physician: Zachary Hernandez MD Primary Care Provider: Lucía Navarro DO Consult Narrative Reason for consult: PSAR bacteremia Narrative: Konrad Nieto is a 79 year old male with pmhx/o dementia, DM, HTN, rectal mass, presented to hospital with acute respiratory failure. Now off oxygen. Blood cxs with 1/2 bottles with staph hominis. Then repeat blood cxs positive for PSAR. Pt without any significant complaints at this time. States he feels better now than his baseline. No pain. No CP, no fever, chills. No URI symptoms, no vomiting or diarrhea, no dysuria. No wounds or sores. States he is going to [facility] in [place] soon for a surgery for the rectal mass that was found. [facility] Past Medical History Medical History Abnormal CT scan, colon COPD (chronic obstructive pulmonary disease) CHF (congestive heart failure) Vascular dementia Cerebral infarction Incisional hernia s/p repair, 2019 Hemorrhoids GI bleed due to NSAIDs Acute blood loss anemia Duodenal ulcer (~2019) Colon polyps Benign prostatic hyperplasia Dyslipidemia Essential hypertension Marginal zone lymphoma Treated with chemotherapy at [facility] in [place] per Dr. G[place]am. Chronic anemia Ganglion cyst of joint of finger of left hand Type 2 diabetes mellitus without complications Surgical History Surgical History History of incisional hernia repair laparoscopic repair of multiple incisional hernia with 25x20 cm Symbotex mesh 09/17/19 History of transurethral resection of prostate Wound dehiscence, traumatic injury repair (~01/2019) Repair of abdominal wound fascial dehiscence with evisceration. Status post exploratory laparotomy (~12/2018) With excisional biopsy of periaortic and periportal lymphadenopathy, histology showing marginal zone lymphoma. Family History Family History Father Acute myocardial infarction Sibling Cerebrovascular accident Family history of malignant neoplasm of brain Mother Family history of congestive heart failure Sibling Lung cancer Social History Social History Social History: The patient is and lives in his own home in [place] [employer]. He has 3 biological children and 2 step children. 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 He is a lifelong nonsmoker and denies alcohol and drug abuse. He designates his daughter, Brisa Brunner, as his surrogate decision maker and he wishes to be a full code. Smoking packs per day: 0.5 Smoking cigarettes per day: 10.0 Years smoked: 50 Smoking pack-years: 25.00 Smoking status: Former smoker Tobacco type: cigarettes Second hand tobacco smoke exposure: No Alcohol intake: former Substance use: never Substance use type: does not use Do You Feel Safe in your Home?: Yes Lack of Transportation: YES Lack of Food: Never True Current Housing: I Have Housing Concerned About Future Housing: No Difficulty Paying Gas/Electric Bills: No Difficulty Paying for Meds: No Currently Unemployed: No Education: Master's Degree or Higher Difficulty w/ Childcare or Family Care: No Living arrangements: alone Occupation/Education: occupation Additional occupation/education comments: 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 Gender identity (if verbalized by the patient): Male Spiritual care concerns: No Agree to blood products: Yes Meds Home Medications and Allergies Home Medications ?Medication ?Instructions ?Recorded ?Confirmed ?Type blood sugar diagnostic #10 ea 03/26/19 01/03/25 History lancets 33 gauge (ArabellaTouch Delica #100 ea 03/26/19 01/03/25 History Lancets) atorvastatin 10 mg tablet 10 mg PO DAILY #90 tabs 07/07/24 01/03/25 Rx escitalopram oxalate 10 mg tablet 10 mg PO DAILY #90 tabs 09/01/24 01/03/25 Rx (Lexapro) trazodone 50 mg tablet 50 mg PO QHS #90 tabs 09/01/24 01/03/25 Rx thiamine HCl (vitamin B1) 50 mg 50 mg PO DAILY #90 tabs 09/15/24 01/03/25 Rx tablet mirtazapine 15 mg tablet 15 mg PO HS 12/15/24 01/03/25 History glimepiride 2 mg tablet 1 mg (1/2 x 2 mg) PO BID #90 tabs 12/19/24 01/03/25 Rx atenolol 50 mg tablet (Tenormin) 50 mg PO DAILY #90 tabs 12/25/24 01/03/25 Rx losartan 50 mg tablet 50 mg PO DAILY 12/25/24 01/03/25 History pioglitazone 45 mg tablet 45 mg PO DAILY 12/25/24 01/03/25 History ferrous sulfate 324 mg (65 mg 324 mg PO DAILY #90 tabs 12/26/24 01/03/25 Rx iron) tablet,delayed release magnesium oxide 400 mg PO DAILY #7 tabs 12/26/24 01/03/25 Rx donepezil 10 mg tablet (Aricept) 10 mg PO DAILY #90 tabs 12/29/24 01/03/25 Rx metformin 500 mg tablet 500 mg PO BID 01/03/25 01/03/25 History omeprazole 20 mg capsule,delayed 20 mg PO BID 01/03/25 01/03/25 History release Allergies Allergy/AdvReac Type Severity Reaction Status Date / Time No Known Allergies Allergy Verified 01/03/25 18:33 Vital Signs Vital Signs - 24 hr 01/08/25 20:00 01/08/25 20:00 01/08/25 21:14 Temperature 97 F L Pulse Rate 60 56 L Respiratory Rate 18 Blood Pressure 114/56 L Pulse Oximetry 90 Oxygen Delivery Room Air 01/09/25 00:00 01/09/25 04:00 01/09/25 06:00 Temperature 97.3 F L Pulse Rate 62 55 L 60 Respiratory Rate 16 Blood Pressure 137/72 Pulse Oximetry 97 Oxygen Delivery 01/09/25 10:00 01/09/25 10:17 01/09/25 14:00 Temperature 97.3 F L Pulse Rate 62 69 62 Respiratory Rate 20 Blood Pressure 152/83 H Pulse Oximetry 92 92 Oxygen Delivery Room Air Exam Narrative: NAD, on room air, non-toxic abd soft NT Results Labs 01/09/25 05:19 01/09/25 05:19 Labs: Short CBC 01/09/25 Range/Units 05:19 WBC 4.3 L (4.5-10.0) K/mm3 Hgb 10.0 L (14.0-18.0) g/dL Hct 30.9 L (42.0-52.0) % Plt Count 232 (150-375) k/mm3 BMP 01/09/25 05:19 Sodium 133 L Potassium 3.7 Chloride 99 Carbon Dioxide 32 H BUN 15 Creatinine 0.64 L Glucose 193 H Calcium 8.4
[2025-01-09] MEDS: CEFEPIME 2 GM in SODIUM CHLORIDE 0.9% IV 50 ML 100 ML IVPB (17:35)
[2025-01-09] MEDS: MIRTAZAPINE 15 MG TABLET PO (21:09)
[2025-01-10] VITALS (10 sets, daily range): BP systolic 149–171; BP diastolic 79–90; PULSE 59–78; RESP 14–20; TEMP 36.4–36.7; O2SAT 92–94
[2025-01-10] MEDS: CEFEPIME 2 GM in SODIUM CHLORIDE 0.9% IV 50 ML 100 ML IVPB ×3 (01:46→17:45)
--- NOTE | 2025-01-10 07:38 | P.PNIM_ITS ---
Progress Note: A&P Assessment and Plan (1) Acute respiratory failure: Code(s): J96.00 - Acute respiratory failure, unspecified whether with hypoxia or hypercapnia Status: Acute Assessment and Plan: - presented with increased shortness of breath - on 2L NC, no home O2 requirement - influenza A/B, RSV and COVID negative - CTA chest with no PE or other acute process. Moderate emphysematous changes. - lungs clear on exam - started on doxycycline and Rocephin for possible PNA - will hold off on further antibiotics for pneumonia for now - weaned to RA - remains off O2 supp - No changes (2) Bacteremia: Code(s): R78.81 - Bacteremia Status: Acute Assessment and Plan: - blood cultures obtained 01/03 - 03/08 bottles positive for Staph Hominis - TTE with no signs of endocarditis - no wounds - suspect contaminant, but patient presented with rigors, procal 28 (which could be from malignancy) - started on vancomycin overnight 01/06, will continue for now - repeat blood cultures show growth of E.coli - Will restart Ceftriaxone per ID pharm recommendations - Continue to monitor culture growth, sensitives - First set of BCs showing growth of S. Hominis with resistivity to erythromycin/Trimethroprim, but otherwise susceptabile. - Infectious disease consult - Change abx to Cefepime - Repeat blood cultures - Monitor previous cultures' sensitivities (3) Alzheimer's dementia: Code(s): G30.9 - Alzheimer's disease, unspecified; F02.80 - Dementia in other diseases classified elsewhere, unspecified severity, without behavioral disturbance, psychotic disturbance, mood disturbance, and anxiety Status: Acute Assessment and Plan: - progressively worsening memory loss. Alert and oriented x3 however has very poor short-term memory and poor situational awareness. Very poor PO intake at home, failure to thrive. Lives at home alone with aide services. 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 Plan is likely for him to return home with home care/aide services until his follow-up appointment at [facility] next week to determine next steps (if any) for rectal mass. Depending on this appointment, daughter may elect hospice services for the patient. -Continue home medications (4) Lactic acidosis: Code(s): E87.20 - Acidosis, unspecified Status: Acute Assessment and Plan: - initial LA 4.2, normalized with IV fluids - CT A/P with no acute process - follow-up blood cultures - encourage PO intake - Resolved (5) Near syncope: Code(s): R55 - Syncope and collapse Status: Acute Assessment and Plan: - orthostatic vitals negative - echo with EF 60-65%, G1 DD - suspect due to dehydration - PT/OT recommended home care - monitor on tele (6) Enlarged prostate: Code(s): N40.0 - Benign prostatic hyperplasia without lower urinary tract symptoms Status: Acute Assessment and Plan: -PSA WNL -Started on Flomax - bladder scans have been negative for retention (7) Rectal mass: Code(s): K62.89 - Other specified diseases of anus and rectum Status: Acute Assessment and Plan: - recent admission for rectal bleeding. Found to have rectal mass and was referred to colorectal surgery at [facility] (8) Type 2 diabetes mellitus without complications: Code(s): E11.9 - Type 2 diabetes mellitus without complications Status: Chronic Assessment and Plan: - hold home PO meds - low dose SSI - continue Accu-Cheks a.c. HS - Diabetic diet (9) Essential (primary) hypertension: Code(s): I10 - Essential (primary) hypertension Status: Chronic Assessment and Plan: - BP elevated likely due to missed BP meds - resume home losartan and atenolol. Titrate PRN (10) Malnutrition: Code(s): E46 - Unspecified protein-calorie malnutrition Status: Acute Assessment and Plan: Severe protein-calorie malnutrition - start PO supplements - dietitian following Plan Code status: DNR DVT prophylaxis: Lovenox Dispo: likely home with [facility] once repeat cultures result Subjective Date/time seen: 01/10/25 07:38 Interval history: 79-year-old male presents the hospital with dizziness possible syncope. He was recently in hospital for rectal bleeding colonoscopy was done which showed lunate ligament appearing rectal mass. 01/10/2025 Patient sitting comfortably in bed at time of exam. Denies any chest pain, SOB, n/v, abd pain. ID consulted - recommend changing abx to Cefepime and repeating blood cultures while monitoring sensitivities on previous cultures. No other overnight events. Review of Systems Review of Systems: 12 systems were reviewed and are negativ e except for as per HPI. Exam Narrative: General: chronically ill appearing, frail Eyes: EOMI ENT: neck supple Cardiovascular: Regular rate and rhythm Respiratory: Clear to auscultation, respirations even and unlabored on RA Gastrointestinal: Soft, non tender Genitourinary: no suprapubic tenderness Musculoskeletal: No edema Skin: warm, dry Neuro: Alert and oriented x3, but forgetful in conversation. Psych: Mood appropriate Objective Data Vital Signs Vital Signs: Vital Signs - 24 hr 01/09/25 08:00 01/09/25 10:00 01/09/25 10:17 Temperature Pulse Rate 67 62 69 Respiratory Rate Blood Pressure Pulse Oximetry 92 Oxygen Delivery Room Air 01/09/25 12:00 01/09/25 14:00 01/09/25 16:00 Temperature 97.3 F L Pulse Rate 63 62 64 Respiratory Rate 20 Blood Pressure 152/83 H Pulse Oximetry 92 Oxygen Delivery 01/09/25 21:45 01/09/25 21:45 01/09/25 21:45 Temperature 97.7 F Pulse Rate 68 63 Respiratory Rate 18 Blood Pressure 188/94 H Pulse Oximetry 98 Oxygen Delivery Room Air 01/10/25 00:00 01/10/25 04:24 01/10/25 06:29 Temperature 98.1 F Pulse Rate 59 L 61 66 Respiratory Rate 18 Blood Pressure 152/90 H Pulse Oximetry 92 Oxygen Delivery Intake/Output Intake/Output: Intake & Output 01/07/25 01/08/25 01/09/25 01/10/25 23:59 23:59 23:59 23:59 Intake Total 2488 3191 4570 480 Output Total 4120 2830 1550 Balance -9806 951 3347 480 Meds/Results Medications: Active Medications Generic Name Dose Route Start Last Admin Trade Name Freq PRN Reason Stop Dose Admin Acetaminophen 650 mg 01/03/25 16:05 Acetaminophen 325 Mg Tablet PO Q4H PRN Mild Pain (1-3) or Fever Atenolol 50 mg 01/05/25 16:15 01/09/25 10:17 Atenolol 50 Mg Tablet PO 50 mg DAILY [place] Administration Atorvastatin Calcium 10 mg 01/04/25 09:00 01/09/25 10:18 Atorvastatin 10 Mg Tablet PO 10 mg DAILY [place] Administration Dextrose 12.5 gm 01/03/25 22:40 Dextrose 50% 25 Gm/50 Ml Syringe IV PUSH PRN PRN Hypoglycemia Protocol Donepezil HCl 10 mg 01/04/25 09:00 01/09/25 10:19 Donepezil Hcl 10 Mg Tablet PO 10 mg DAILY [place] Administration Enoxaparin Sodium 40 mg 01/04/25 09:00 01/09/25 10:16 Enoxaparin 40 Mg/0.4 Ml Syringe SUB-Q 40 mg DAILY [place] Administration Escitalopram Oxalate 10 mg 01/04/25 09:00 01/09/25 10:17 Escitalopram Oxalate 10 Mg Tablet PO 10 mg DAILY [place] Administration Glucagon 1 mg 01/03/25 22:40 Glucagon For Inj 1 Mg Vial IM PRN PRN Hypoglycemia Protocol Glucose 15 gm 01/03/25 22:40 Glucose Oral Gel 15 Gm Of Glucse In 37.5 Gm Tube PO PRN PRN Hypoglycemia Protocol Hydralazine HCl 10 mg 01/09/25 22:18 Hydralazine Hcl 20 Mg/Ml Vial IV PUSH Q8H PRN Blood Pressure - High Dextrose 1,000 mls @ 100 mls/hr 01/03/25 22:40 Dextrose 5% 1,000 Ml IVPB PRN PRN Hypoglycemia Protocol Cefepime HCl 2 gm/ Sodium 50 mls @ 100 mls/hr 01/09/25 17:00 01/10/25 01:46 Chloride IVPB 100 mls/hr Q8H [place] Administration Insulin Aspart 2 - 5 units 01/04/25 08:00 01/09/25 17:36 Insulin Aspart (*Bkc) 100 Units/Ml SUB-Q 2 units TIDWM [place] Administration Protocol Losartan Potassium 50 mg 01/04/25 09:00 01/09/25 10:17 Losartan Potassium 50 Mg Tablet PO 50 mg DAILY [place] Administration Mirtazapine 15 mg 01/03/25 21:00 01/09/25 21:09 Mirtazapine 15 Mg Tablet PO 15 mg HS [place] Administration Pantoprazole Sodium 40 mg 01/04/25 09:00 01/09/25 21:09 Pantoprazole 40 Mg Tablet PO 40 mg Q12HR [place] Administration Tamsulosin HCl 0.4 mg 01/04/25 09:00 01/09/25 10:17 Tamsulosin Hcl 0.4 Mg Capsule PO 0.4 mg QAM [place] Administration Thiamine HCl 50 mg 01/04/25 09:00 01/09/25 10:17 Thiamine Hcl 50 Mg Tablet PO 50 mg DAILY [place] Administration Trazodone HCl 50 mg 01/04/25 21:00 01/09/25 21:09 Trazodone Hcl 50 Mg Tablet PO 50 mg QHS [place] Administration Radiology Results: ITS Impressions Chest X-Ray 01/03/25 14:08 Impression: No acute cardiopulmonary abnormality. Chest CTA 01/03/25 15:26 IMPRESSION: Negative for pulmonary embolism. No acute process Head CT 01/03/25 17:01 Impression: 1.No acute intracranial abnormality. Abdomen/Pelvis CT 01/03/25 17:05 IMPRESSION: 1. No acute intra-abdominal process, absence of intravenous contrast limits evaluation but there is no gross abscess identified 2. Incidental findings above. Correlate for bladder outlet obstruction Labs Labs: Laboratory Results - last 24 hr 01/09/25 01/09/25 01/09/25 07:50 11:50 17:23 POC Capillary Glucose 178 H 220 H 216 H 01/09/25 21:13 POC Capillary Glucose 208 H Quality VTE Prophylaxis VTE prophylaxis: mechanical ordered and pharmacologic ordered
[2025-01-10] MEDS: INSULIN ASPART (*BKC) 100 UNITS/ML SUB-Q ×3 (08:51→17:19)
[2025-01-10] MEDS: PANTOPRAZOLE 40 MG TABLET PO ×2 (09:47→20:55)
[2025-01-10] MEDS: ENOXAPARIN 40 MG/0.4 ML SYRINGE SUB-Q (09:47)
[2025-01-10] MEDS: TAMSULOSIN HCL 0.4 MG CAPSULE PO (09:47)
[2025-01-10] MEDS: ATORVASTATIN 10 MG TABLET PO (09:47)
[2025-01-10] MEDS: ESCITALOPRAM OXALATE 10 MG TABLET PO (09:48)
[2025-01-10] MEDS: DONEPEZIL HCL 10 MG TABLET PO (09:48)
[2025-01-10] MEDS: THIAMINE HCL 50 MG TABLET PO (09:48)
[2025-01-10] MEDS: LOSARTAN POTASSIUM 50 MG TABLET PO (09:48)
[2025-01-10 10:42] LABS: Hematocrit 33.6 % (42.0-52.0); Hemoglobin 11.0 g/dL (14.0-18.0); Immature Granulocyte Percent A 0.6 % (0-0.5); Lymphocytes Absolute Auto 0.32 K/mm3 (0.9-3.2); Mean Corpuscular HGB Conc 32.7 g/dl (32-36); Mean Corpuscular Hemoglobin 33.2 pg (26-34); Mean Corpuscular Volume 101.5 fl (80-100); Nucleated Red Blood Cells Absolute Auto 0.000 K/mm3 (0.0-0.012); Nucleated Red Blood Cells Perc 0.0 % (0.0-0.2); Platelet Count Result 234 k/mm3 (150-375); Red Blood Count 3.31 M/mm3 (4.6-6.20); White Blood Count 6.6 K/mm3 (4.5-10.0)
[2025-01-10 11:07] LABS: Alanine Aminotransferase 28 U/L (6-50); Albumin Level 3.6 g/dL (3.5-5.1); Alkaline Phosphatase 64 U/L (38-126); Anion Gap 2 mmol/L (4-12); Aspartate Amino Transferase 25 U/L (17-59); Bilirubin,Total 0.4 mg/dL (0.2-1.3); Blood Urea Nitrogen 18 mg/dL (9-20); Calcium 8.8 mg/dL (8.4-10.2); Carbon Dioxide 33 mmol/L (22-30); Chloride 96 mmol/L (98-107); Estimated CRCL calculation 59 ml/min; Estimated Glomerular Filt Rate > 60; Glucose 258 mg/dL (65-110); Potassium 4.5 mmol/L (3.4-5.0); Sodium 131 mmol/L (137-145); Total Protein 5.7 g/dL (6.3-8.2)
[2025-01-10] MEDS: MIRTAZAPINE 15 MG TABLET PO (20:55)
[2025-01-11] VITALS (11 sets, daily range): BP systolic 148–160; BP diastolic 64–87; PULSE 57–69; RESP 16–22; TEMP 36.4–36.7; O2SAT 91–95
[2025-01-11] MEDS: CEFEPIME 2 GM in SODIUM CHLORIDE 0.9% IV 50 ML 100 ML IVPB (00:36)
[2025-01-11 06:31] LABS: Hematocrit 32.4 % (42.0-52.0); Hemoglobin 10.5 g/dL (14.0-18.0); Immature Granulocyte Percent A 1.2 % (0-0.5); Lymphocytes Absolute Auto 0.57 K/mm3 (0.9-3.2); Mean Corpuscular HGB Conc 32.4 g/dl (32-36); Mean Corpuscular Hemoglobin 32.7 pg (26-34); Mean Corpuscular Volume 100.9 fl (80-100); Nucleated Red Blood Cells Absolute Auto 0.000 K/mm3 (0.0-0.012); Nucleated Red Blood Cells Perc 0.0 % (0.0-0.2); Platelet Count Result 248 k/mm3 (150-375); Red Blood Count 3.21 M/mm3 (4.6-6.20); White Blood Count 5.2 K/mm3 (4.5-10.0)
[2025-01-11 06:34] LABS: Alanine Aminotransferase 30 U/L (6-50); Albumin Level 3.4 g/dL (3.5-5.1); Alkaline Phosphatase 60 U/L (38-126); Anion Gap 3 mmol/L (4-12); Aspartate Amino Transferase 26 U/L (17-59); Bilirubin,Total 0.4 mg/dL (0.2-1.3); Blood Urea Nitrogen 17 mg/dL (9-20); Calcium 8.9 mg/dL (8.4-10.2); Carbon Dioxide 32 mmol/L (22-30); Chloride 99 mmol/L (98-107); Estimated CRCL calculation 63 ml/min; Estimated Glomerular Filt Rate > 60; Glucose 174 mg/dL (65-110); Potassium 4.0 mmol/L (3.4-5.0); Sodium 134 mmol/L (137-145); Total Protein 5.5 g/dL (6.3-8.2)
--- NOTE | 2025-01-11 08:02 | P.PNIM_ITS ---
Progress Note: A&P Assessment and Plan (1) Acute respiratory failure: Code(s): J96.00 - Acute respiratory failure, unspecified whether with hypoxia or hypercapnia Status: Acute Assessment and Plan: - presented with increased shortness of breath - on 2L NC, no home O2 requirement - influenza A/B, RSV and COVID negative - CTA chest with no PE or other acute process. Moderate emphysematous changes. - lungs clear on exam - started on doxycycline and Rocephin for possible PNA - will hold off on further antibiotics for pneumonia for now - weaned to RA - remains off O2 supp - No changes (2) Bacteremia: Code(s): R78.81 - Bacteremia Status: Acute Assessment and Plan: - blood cultures obtained 01/03 - 03/08 bottles positive for Staph Hominis - TTE with no signs of endocarditis - no wounds - suspect contaminant, but patient presented with rigors, procal 28 (which could be from malignancy) - started on vancomycin overnight 01/06, will continue for now - repeat blood cultures show growth of E.coli - Will restart Ceftriaxone per ID pharm recommendations - Continue to monitor culture growth, sensitives - First set of BCs showing growth of S. Hominis with resistivity to erythromycin/Trimethroprim, but otherwise susceptabile. - Infectious disease consult - initially changed to Cefepime - Repeat blood cultures - Monitor previous cultures' sensitivities - 01/11: The blood cultures drawn on 01/06 show growth of Pseudomonas aeruginosa - switch cefepime to meropenem given susceptibilities - continue to monitor blood cultures drawn on 01/09 - Patient remains afebrile without leukocytosis (3) Alzheimer's dementia: Code(s): G30.9 - Alzheimer's disease, unspecified; F02.80 - Dementia in other diseases classified elsewhere, unspecified severity, without behavioral disturbance, psychotic disturbance, mood disturbance, and anxiety Status: Acute Assessment and Plan: - progressively worsening memory loss. Alert and oriented x3 however has very poor short-term memory and poor situational awareness. Very poor PO intake at home, failure to thrive. Lives at home alone with aide services. 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 Plan is likely for him to return home with home care/aide services until his follow-up appointment at [place] next week to determine next steps (if any) for rectal mass. Depending on this appointment, daughter may elect hospice services for the patient. -Continue home medications (4) Lactic acidosis: Code(s): E87.20 - Acidosis, unspecified Status: Acute Assessment and Plan: - initial LA 4.2, normalized with IV fluids - CT A/P with no acute process - follow-up blood cultures - encourage PO intake - Resolved (5) Near syncope: Code(s): R55 - Syncope and collapse Status: Acute Assessment and Plan: - orthostatic vitals negative - echo with EF 60-65%, G1 DD - suspect due to dehydration - PT/OT recommended home care - monitor on tele (6) Enlarged prostate: Code(s): N40.0 - Benign prostatic hyperplasia without lower urinary tract symptoms Status: Acute Assessment and Plan: -PSA WNL -Started on Flomax - bladder scans have been negative for retention (7) Rectal mass: Code(s): K62.89 - Other specified diseases of anus and rectum Status: Acute Assessment and Plan: - recent admission for rectal bleeding. Found to have rectal mass and was referred to colorectal surgery at [facility] (8) Type 2 diabetes mellitus without complications: Code(s): E11.9 - Type 2 diabetes mellitus without complications Status: Chronic Assessment and Plan: - hold home PO meds - low dose SSI - continue Accu-Cheks a.c. HS - Diabetic diet (9) Essential (primary) hypertension: Code(s): I10 - Essential (primary) hypertension Status: Chronic Assessment and Plan: - BP elevated likely due to missed BP meds - resume home losartan and atenolol. Titrate PRN (10) Malnutrition: Code(s): E46 - Unspecified protein-calorie malnutrition Status: Acute Assessment and Plan: Severe protein-calorie malnutrition - start PO supplements - dietitian following Plan Code status: DNR DVT prophylaxis: Lovenox Dispo: likely home with [facility] once repeat cultures result Subjective Date/time seen: 01/11/25 08:02 Interval history: 79-year-old male presents the hospital with dizziness possible syncope. He was recently in hospital for rectal bleeding colonoscopy was done which showed lunate ligament appearing rectal mass. 01/11/2025 Patient sitting comfortably in bed at time of exam. Blood cultures drawn on 01/06 show growth of Pseudomonas aeruginosa with susceptibility to meropenem. Will switch from cefepime to meropenem at this time. Continue to monitor blood cultures drawn on 01/09. Patient otherwise feeling well and has no complaints a t this time. Remains afebrile without leukocytosis. Review of Systems Review of Systems: 12 systems were reviewed and are negativ e except for as per HPI. Exam Narrative: General: chronically ill appearing, frail Eyes: EOMI ENT: neck supple Cardiovascular: Regular rate and rhythm Respiratory: Clear to auscultation, respirations even and unlabored on RA Gastrointestinal: Soft, non tender Genitourinary: no suprapubic tenderness Musculoskeletal: No edema Skin: warm, dry Neuro: Alert and oriented x3, but forgetful in conversation. Psych: Mood appropriate Objective Data Vital Signs Vital Signs: Vital Signs - 24 hr 01/10/25 09:45 01/10/25 09:45 01/10/25 09:48 Temperature Pulse Rate 78 78 Respiratory Rate Blood Pressure Pulse Oximetry 92 Oxygen Delivery Room Air 01/10/25 12:00 01/10/25 14:00 01/10/25 16:00 Temperature 97.5 F L Pulse Rate 67 63 60 Respiratory Rate 14 Blood Pressure 149/79 H Pulse Oximetry 92 Oxygen Delivery 01/10/25 20:00 01/10/25 21:01 01/10/25 21:01 Temperature 97.7 F Pulse Rate 63 63 Respiratory Rate 20 Blood Pressure 171/80 H Pulse Oximetry 94 Oxygen Delivery Room Air 01/11/25 00:27 01/11/25 04:02 01/11/25 06:23 Temperature 98.0 F Pulse Rate 69 61 62 Respiratory Rate 18 Blood Pressure 160/86 H Pulse Oximetry 94 Oxygen Delivery Intake/Output Intake/Output: Intake & Output 01/08/25 01/09/25 01/10/25 01/11/25 23:59 23:59 23:59 23:59 Intake Total 3191 4570 4460 Output Total 2830 2284 696 8398 Balance 361 3020 3860 -1700 Meds/Results Medications: Active Medications Generic Name Dose Route Start Last Admin Trade Name Freq PRN Reason Stop Dose Admin Acetaminophen 650 mg 01/03/25 16:05 Acetaminophen 325 Mg Tablet PO Q4H PRN Mild Pain (1-3) or Fever Atenolol 50 mg 01/05/25 16:15 01/10/25 09:48 Atenolol 50 Mg Tablet PO 50 mg DAILY [place] Administration Atorvastatin Calcium 10 mg 01/04/25 09:00 01/10/25 09:47 Atorvastatin 10 Mg Tablet PO 10 mg DAILY [place] Administration Dextrose 12.5 gm 01/03/25 22:40 Dextrose 50% 25 Gm/50 Ml Syringe IV PUSH PRN PRN Hypoglycemia Protocol Donepezil HCl 10 mg 01/04/25 09:00 01/10/25 09:48 Donepezil Hcl 10 Mg Tablet PO 10 mg DAILY [place] Administration Enoxaparin Sodium 40 mg 01/04/25 09:00 01/10/25 09:47 Enoxaparin 40 Mg/0.4 Ml Syringe SUB-Q 40 mg DAILY [place] Administration Escitalopram Oxalate 10 mg 01/04/25 09:00 01/10/25 09:48 Escitalopram Oxalate 10 Mg Tablet PO 10 mg DAILY [place] Administration Glucagon 1 mg 01/03/25 22:40 Glucagon For Inj 1 Mg Vial IM PRN PRN Hypoglycemia Protocol Glucose 15 gm 01/03/25 22:40 Glucose Oral Gel 15 Gm Of Glucse In 37.5 Gm Tube PO PRN PRN Hypoglycemia Protocol Hydralazine HCl 10 mg 01/09/25 22:18 Hydralazine Hcl 20 Mg/Ml Vial IV PUSH Q8H PRN Blood Pressure - High Dextrose 1,000 mls @ 100 mls/hr 01/03/25 22:40 Dextrose 5% 1,000 Ml IVPB PRN PRN Hypoglycemia Protocol Meropenem 1 gm/ Sodium 100 mls @ 200 mls/hr 01/11/25 08:05 Chloride IVPB Q8H [place] Insulin Aspart 2 - 5 units 01/04/25 08:00 01/10/25 17:19 Insulin Aspart (*Bkc) 100 Units/Ml SUB-Q 3 units TIDWM [place] Administration Protocol Losartan Potassium 50 mg 01/04/25 09:00 01/10/25 09:48 Losartan Potassium 50 Mg Tablet PO 50 mg DAILY [place] Administration Mirtazapine 15 mg 01/03/25 21:00 01/10/25 20:55 Mirtazapine 15 Mg Tablet PO 15 mg HS [place] Administration Pantoprazole Sodium 40 mg 01/04/25 09:00 01/10/25 20:55 Pantoprazole 40 Mg Tablet PO 40 mg Q12HR [place] Administration Tamsulosin HCl 0.4 mg 01/04/25 09:00 01/10/25 09:47 Tamsulosin Hcl 0.4 Mg Capsule PO 0.4 mg QAM [place] Administration Thiamine HCl 50 mg 01/04/25 09:00 01/10/25 09:48 Thiamine Hcl 50 Mg Tablet PO 50 mg DAILY [place] Administration Trazodone HCl 50 mg 01/04/25 21:00 01/10/25 20:55 Trazodone Hcl 50 Mg Tablet PO 50 mg QHS [place] Administration Radiology Results: ITS Impressions Chest X-Ray 01/03/25 14:08 Impression: No acute cardiopulmonary abnormality. Chest CTA 01/03/25 15:26 IMPRESSION: Negative for pulmonary embolism. No acute process Head CT 01/03/25 17:01 Impression: 1.No acute intracranial abnormality. Abdomen/Pelvis CT 01/03/25 17:05 IMPRESSION: 1. No acute intra-abdominal process, absence of intravenous contrast limits evaluation but there is no gross abscess identified 2. Incidental findings above. Correlate for bladder outlet obstruction Labs Labs: Laboratory Results - last 24 hr 01/10/25 01/10/25 01/10/25 08:19 10:38 12:02 WBC 6.6 RBC 3.31 L Hgb 11.0 L Hct 33.6 L MCV 101.5 H MCH 33.2 MCHC 32.7 RDW 14.7 H Plt Count 234 MPV 9.6 Immature Gran % (Auto) 0.6 H Neut % (Auto) 84.8 H Lymph % (Auto) 4.8 L [place] % (Auto) 6.8 Eos % (Auto) 2.4 Baso % (Auto) 0.6 Lymph # (Auto) 0.32 L [place] # (Auto) 0.5 Eos # (Auto) 0.2 Baso # (Auto) 0.0 Abs Immat Gran (auto) 0.04 H Absolute Neuts (auto) 5.6 Absolute Nucleated RBC 0.000 Nucleated RBC % 0.0 Sodium 131 L Potassium 4.5 Chloride 96 L Carbon Dioxide 33 H Anion Gap 2 L BUN 18 Creatinine 0.78 Estim Creat Clear Calc 59 Estimated GFR > 60 Glucose 258 H POC Capillary Glucose 203 H 231 H Calcium 8.8 Total Bilirubin 0.4 AST 25 ALT 28 Alkaline Phosphatase 64 Total Protein 5.7 L Albumin 3.6 01/10/25 01/10/25 01/11/25 17:00 20:55 05:42 WBC 5.2 RBC 3.21 L Hgb 10.5 L Hct 32.4 L MCV 100.9 H MCH 32.7 MCHC 32.4 RDW 14.7 H Plt Count 248 MPV 9.9 Immature Gran % (Auto) 1.2 H Neut % (Auto) 70.9 Lymph % (Auto) 11.0 L [place] % (Auto) 11.9 H Eos % (Auto) 4.6 H Baso % (Auto) 0.4 Lymph # (Auto) 0.57 L [place] # (Auto) 0.6 Eos # (Auto) 0.2 Baso # (Auto) 0.0 Abs Immat Gran (auto) 0.06 H Absolute Neuts (auto) 3.7 Absolute Nucleated RBC 0.000 Nucleated RBC % 0.0 Sodium 134 L Potassium 4.0 Chloride 99 Carbon Dioxide 32 H Anion Gap 3 L BUN 17 Creatinine 0.72 Estim Creat Clear Calc 63 Estimated GFR > 60 Glucose 174 H POC Capillary Glucose 282 H 181 H Calcium 8.9 Total Bilirubin 0.4 AST 26 ALT 30 Alkaline Phosphatase 60 Total Protein 5.5 L Albumin 3.4 L Quality VTE Prophylaxis VTE prophylaxis: mechanical ordered and pharmacologic ordered
[2025-01-11] MEDS: THIAMINE HCL 50 MG TABLET PO (10:12)
[2025-01-11] MEDS: DONEPEZIL HCL 10 MG TABLET PO (10:12)
[2025-01-11] MEDS: TAMSULOSIN HCL 0.4 MG CAPSULE PO (10:12)
[2025-01-11] MEDS: ESCITALOPRAM OXALATE 10 MG TABLET PO (10:13)
[2025-01-11] MEDS: ATORVASTATIN 10 MG TABLET PO (10:13)
[2025-01-11] MEDS: MEROPENEM 1 GM in SODIUM CHLORIDE 0.9% IV 100 ML 200 ML IVPB ×2 (10:15→16:34)
[2025-01-11] MEDS: ENOXAPARIN 40 MG/0.4 ML SYRINGE SUB-Q (10:15)
[2025-01-11] MEDS: PANTOPRAZOLE 40 MG TABLET PO ×2 (10:15→20:19)
[2025-01-11] MEDS: LOSARTAN POTASSIUM 50 MG TABLET PO (10:15)
[2025-01-11] MEDS: INSULIN ASPART (*BKC) 100 UNITS/ML SUB-Q ×2 (12:52→17:48)
[2025-01-11] MEDS: MIRTAZAPINE 15 MG TABLET PO (20:19)
[2025-01-12] VITALS (10 sets, daily range): BP systolic 147–160; BP diastolic 75–85; PULSE 57–82; RESP 16–18; TEMP 36.3–36.6; O2SAT 93–95
[2025-01-12] MEDS: MEROPENEM 1 GM in SODIUM CHLORIDE 0.9% IV 100 ML 200 ML IVPB ×3 (00:15→16:27)
[2025-01-12 05:39] LABS: Hematocrit 31.6 % (42.0-52.0); Hemoglobin 10.2 g/dL (14.0-18.0); Immature Granulocyte Percent A 0.4 % (0-0.5); Lymphocytes Absolute Auto 0.50 K/mm3 (0.9-3.2); Mean Corpuscular HGB Conc 32.3 g/dl (32-36); Mean Corpuscular Hemoglobin 32.8 pg (26-34); Mean Corpuscular Volume 101.6 fl (80-100); Nucleated Red Blood Cells Absolute Auto 0.000 K/mm3 (0.0-0.012); Nucleated Red Blood Cells Perc 0.0 % (0.0-0.2); Platelet Count Result 237 k/mm3 (150-375); Red Blood Count 3.11 M/mm3 (4.6-6.20); White Blood Count 4.7 K/mm3 (4.5-10.0)
[2025-01-12 06:10] LABS: Alanine Aminotransferase 27 U/L (6-50); Albumin Level 3.3 g/dL (3.5-5.1); Alkaline Phosphatase 69 U/L (38-126); Anion Gap 1 mmol/L (4-12); Aspartate Amino Transferase 24 U/L (17-59); Bilirubin,Total 0.4 mg/dL (0.2-1.3); Blood Urea Nitrogen 15 mg/dL (9-20); Calcium 8.8 mg/dL (8.4-10.2); Carbon Dioxide 34 mmol/L (22-30); Chloride 99 mmol/L (98-107); Estimated CRCL calculation 66 ml/min; Estimated Glomerular Filt Rate > 60; Glucose 155 mg/dL (65-110); Potassium 4.0 mmol/L (3.4-5.0); Sodium 134 mmol/L (137-145); Total Protein 5.5 g/dL (6.3-8.2)
--- NOTE | 2025-01-12 07:21 | P.PNIM_ITS ---
Progress Note: A&P Assessment and Plan (1) Acute respiratory failure: Code(s): J96.00 - Acute respiratory failure, unspecified whether with hypoxia or hypercapnia Status: Acute Assessment and Plan: - presented with increased shortness of breath - on 2L NC, no home O2 requirement - influenza A/B, RSV and COVID negative - CTA chest with no PE or other acute process. Moderate emphysematous changes. - lungs clear on exam - started on doxycycline and Rocephin for possible PNA - will hold off on further antibiotics for pneumonia for now - weaned to RA - remains off O2 supp - No changes (2) Bacteremia: Code(s): R78.81 - Bacteremia Status: Acute Assessment and Plan: - blood cultures obtained 01/03 - 03/08 bottles positive for Staph Hominis - TTE with no signs of endocarditis - no wounds - suspect contaminant, but patient presented with rigors, procal 28 (which could be from malignancy) - started on vancomycin overnight 01/06, will continue for now - repeat blood cultures show growth of E.coli - Will restart Ceftriaxone per ID pharm recommendations - Continue to monitor culture growth, sensitives - First set of BCs showing growth of S. Hominis with resistivity to erythromycin/Trimethroprim, but otherwise susceptabile. - Infectious disease consult - initially changed to Cefepime - Repeat blood cultures - Monitor previous cultures' sensitivities - 01/12: The blood cultures drawn on 01/06 show growth of Pseudomonas aeruginosa - switched cefepime to meropenem given susceptibilities - continue to monitor blood cultures drawn on 01/09 - still pending - Patient remains afebrile without leukocytosis (3) Alzheimer's dementia: Code(s): G30.9 - Alzheimer's disease, unspecified; F02.80 - Dementia in other diseases classified elsewhere, unspecified severity, without behavioral disturbance, psychotic disturbance, mood disturbance, and anxiety Status: Acute Assessment and Plan: - progressively worsening memory loss. Alert and oriented x3 however has very poor short-term memory and poor situational awareness. Very poor PO intake at home, failure to thrive. Lives at home alone with aide services. 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 Plan is likely for him to return home with home care/aide services until his follow-up appointment at [place] next week to determine next steps (if any) for rectal mass. Depending on this appointment, daughter may elect hospice services for the patient. -Continue home medications (4) Lactic acidosis: Code(s): E87.20 - Acidosis, unspecified Status: Acute Assessment and Plan: - initial LA 4.2, normalized with IV fluids - CT A/P with no acute process - follow-up blood cultures - encourage PO intake - Resolved (5) Near syncope: Code(s): R55 - Syncope and collapse Status: Acute Assessment and Plan: - orthostatic vitals negative - echo with EF 60-65%, G1 DD - suspect due to dehydration - PT/OT recommended home care - monitor on tele (6) Enlarged prostate: Code(s): N40.0 - Benign prostatic hyperplasia without lower urinary tract symptoms Status: Acute Assessment and Plan: -PSA WNL -Started on Flomax - bladder scans have been negative for retention (7) Rectal mass: Code(s): K62.89 - Other specified diseases of anus and rectum Status: Acute Assessment and Plan: - recent admission for rectal bleeding. Found to have rectal mass and was referred to colorectal surgery at [facility] (8) Type 2 diabetes mellitus without complications: Code(s): E11.9 - Type 2 diabetes mellitus without complications Status: Chronic Assessment and Plan: - hold home PO meds - low dose SSI - continue Accu-Cheks a.c. HS - Diabetic diet (9) Essential (primary) hypertension: Code(s): I10 - Essential (primary) hypertension Status: Chronic Assessment and Plan: - BP elevated likely due to missed BP meds - resume home losartan and atenolol. Titrate PRN (10) Malnutrition: Code(s): E46 - Unspecified protein-calorie malnutrition Status: Acute Assessment and Plan: Severe protein-calorie malnutrition - start PO supplements - dietitian following Plan Code status: DNR DVT prophylaxis: Lovenox Dispo: likely home with [facility] once repeat cultures result Subjective Date/time seen: 01/12/25 07:21 Interval history: 79-year-old male presents the hospital with dizziness possible syncope. He was recently in hospital for rectal bleeding colonoscopy was done which showed lunate ligament appearing rectal mass. 01/12/2025 Patient sitting comfortably in bed at time of exam. Vitals stable, blood work largely unchanged. Repeat BCs (drawn on 01/06) still showing growth of P. Aeruginosa, sensitive to Meropenem. Switched Cefepime to Meropenem. Repeat BCs (drawn on 01/09) still pending. Pt otherwise stable. Review of Systems Review of Systems: 12 systems were reviewed and are negativ e except for as per HPI. Exam Narrative: General: chronically ill appearing, frail Eyes: EOMI ENT: neck supple Cardiovascular: Regular rate and rhythm Respiratory: Clear to auscultation, respirations even and unlabored on RA Gastrointestinal: Soft, non tender Genitourinary: no suprapubic tenderness Musculoskeletal: No edema Skin: warm, dry Neuro: Alert and oriented x3, but forgetful in conversation. Psych: Mood appropriate Objective Data Vital Signs Vital Signs: Vital Signs - 24 hr 01/11/25 08:00 01/11/25 10:10 01/11/25 10:13 Temperature Pulse Rate 62 63 Respiratory Rate Blood Pressure Pulse Oximetry 91 Oxygen Delivery Room Air 01/11/25 12:00 01/11/25 14:00 01/11/25 16:00 Temperature 98.1 F Pulse Rate 59 L 64 58 L Respiratory Rate 22 H Blood Pressure 148/64 H Pulse Oximetry 91 Oxygen Delivery 01/11/25 20:20 01/11/25 20:20 01/11/25 22:00 Temperature 97.6 F Pulse Rate 57 L 59 L Respiratory Rate 16 Blood Pressure 152/87 H Pulse Oximetry 95 Oxygen Delivery Room Air 01/12/25 00:00 01/12/25 04:00 01/12/25 04:00 Temperature Pulse Rate 68 59 L 59 L Respiratory Rate Blood Pressure Pulse Oximetry Oxygen Delivery 01/12/25 06:07 Temperature 97.6 F Pulse Rate 57 L Respiratory Rate 16 Blood Pressure 147/85 H Pulse Oximetry 93 Oxygen Delivery Intake/Output Intake/Output: Intake & Output 01/09/25 01/10/25 01/11/25 01/12/25 23:59 23:59 23:59 23:59 Intake Total 4570 4460 2900 900 Output Total 0184 170 9887 1500 Balance 3020 3860 -300 -600 Meds/Results Medications: Active Medications Generic Name Dose Route Start Last Admin Trade Name Freq PRN Reason Stop Dose Admin Acetaminophen 650 mg 01/03/25 16:05 Acetaminophen 325 Mg Tablet PO Q4H PRN Mild Pain (1-3) or Fever Atenolol 50 mg 01/05/25 16:15 01/11/25 10:13 Atenolol 50 Mg Tablet PO 50 mg DAILY [place] Administration Atorvastatin Calcium 10 mg 01/04/25 09:00 01/11/25 10:13 Atorvastatin 10 Mg Tablet PO 10 mg DAILY [place] Administration Dextrose 12.5 gm 01/03/25 22:40 Dextrose 50% 25 Gm/50 Ml Syringe IV PUSH PRN PRN Hypoglycemia Protocol Donepezil HCl 10 mg 01/04/25 09:00 01/11/25 10:12 Donepezil Hcl 10 Mg Tablet PO 10 mg DAILY [place] Administration Enoxaparin Sodium 40 mg 01/04/25 09:00 01/11/25 10:15 Enoxaparin 40 Mg/0.4 Ml Syringe SUB-Q 40 mg DAILY [place] Administration Escitalopram Oxalate 10 mg 01/04/25 09:00 01/11/25 10:13 Escitalopram Oxalate 10 Mg Tablet PO 10 mg DAILY [place] Administration Glucagon 1 mg 01/03/25 22:40 Glucagon For Inj 1 Mg Vial IM PRN PRN Hypoglycemia Protocol Glucose 15 gm 01/03/25 22:40 Glucose Oral Gel 15 Gm Of Glucse In 37.5 Gm Tube PO PRN PRN Hypoglycemia Protocol Hydralazine HCl 10 mg 01/09/25 22:18 Hydralazine Hcl 20 Mg/Ml Vial IV PUSH Q8H PRN Blood Pressure - High Dextrose 1,000 mls @ 100 mls/hr 01/03/25 22:40 Dextrose 5% 1,000 Ml IVPB PRN PRN Hypoglycemia Protocol Meropenem 1 gm/ Sodium 100 mls @ 200 mls/hr 01/11/25 08:00 01/12/25 00:45 Chloride IVPB Infused Q8H [place] Infusion Insulin Aspart 2 - 5 units 01/04/25 08:00 01/11/25 17:48 Insulin Aspart (*Bkc) 100 Units/Ml SUB-Q 2 units TIDWM [place] Administration Protocol Losartan Potassium 50 mg 01/04/25 09:00 01/11/25 10:15 Losartan Potassium 50 Mg Tablet PO 50 mg DAILY [place] Administration Mirtazapine 15 mg 01/03/25 21:00 01/11/25 20:19 Mirtazapine 15 Mg Tablet PO 15 mg HS [place] Administration Pantoprazole Sodium 40 mg 01/04/25 09:00 01/11/25 20:19 Pantoprazole 40 Mg Tablet PO 40 mg Q12HR [place] Administration Tamsulosin HCl 0.4 mg 01/04/25 09:00 01/11/25 10:12 Tamsulosin Hcl 0.4 Mg Capsule PO 0.4 mg QAM [place] Administration Thiamine HCl 50 mg 01/04/25 09:00 01/11/25 10:12 Thiamine Hcl 50 Mg Tablet PO 50 mg DAILY [place] Administration Trazodone HCl 50 mg 01/04/25 21:00 01/11/25 20:19 Trazodone Hcl 50 Mg Tablet PO 50 mg QHS [place] Administration Radiology Results: ITS Impressions Chest X-Ray 01/03/25 14:08 Impression: No acute cardiopulmonary abnormality. Chest CTA 01/03/25 15:26 IMPRESSION: Negative for pulmonary embolism. No acute process Head CT 01/03/25 17:01 Impression: 1.No acute intracranial abnormality. Abdomen/Pelvis CT 01/03/25 17:05 IMPRESSION: 1. No acute intra-abdominal process, absence of intravenous contrast limits evaluation but there is no gross abscess identified 2. Incidental findings above. Correlate for bladder outlet obstruction Labs Labs: Laboratory Results - last 24 hr 01/11/25 01/11/25 01/11/25 08:15 12:20 17:07 WBC RBC Hgb Hct MCV MCH MCHC RDW Plt Count MPV Immature Gran % (Auto) Neut % (Auto) Lymph % (Auto) [place] % (Auto) Eos % (Auto) Baso % (Auto) Lymph # (Auto) [place] # (Auto) Eos # (Auto) Baso # (Auto) Abs Immat Gran (auto) Absolute Neuts (auto) Absolute Nucleated RBC Nucleated RBC % Sodium Potassium Chloride Carbon Dioxide Anion Gap BUN Creatinine Estim Creat Clear Calc Estimated GFR Glucose POC Capillary Glucose 176 H 246 H 241 H Calcium Total Bilirubin AST ALT Alkaline Phosphatase Total Protein Albumin 01/11/25 01/12/25 20:54 05:17 WBC 4.7 RBC 3.11 L Hgb 10.2 L Hct 31.6 L MCV 101.6 H MCH 32.8 MCHC 32.3 RDW 14.9 H Plt Count 237 MPV 9.8 Immature Gran % (Auto) 0.4 Neut % (Auto) 67.1 Lymph % (Auto) 10.5 L [place] % (Auto) 13.1 H Eos % (Auto) 7.8 H Baso % (Auto) 1.1 Lymph # (Auto) 0.50 L [place] # (Auto) 0.6 Eos # (Auto) 0.4 H Baso # (Auto) 0.1 Abs Immat Gran (auto) 0.02 Absolute Neuts (auto) 3.2 Absolute Nucleated RBC 0.000 Nucleated RBC % 0.0 Sodium 134 L Potassium 4.0 Chloride 99 Carbon Dioxide 34 H Anion Gap 1 L BUN 15 Creatinine 0.69 L Estim Creat Clear Calc 66 Estimated GFR > 60 Glucose 155 H POC Capillary Glucose 165 H Calcium 8.8 Total Bilirubin 0.4 AST 24 ALT 27 Alkaline Phosphatase 69 Total Protein 5.5 L Albumin 3.3 L Quality VTE Prophylaxis VTE prophylaxis: mechanical ordered and pharmacologic ordered
[2025-01-12] MEDS: DONEPEZIL HCL 10 MG TABLET PO (10:38)
[2025-01-12] MEDS: TAMSULOSIN HCL 0.4 MG CAPSULE PO (10:38)
[2025-01-12] MEDS: PANTOPRAZOLE 40 MG TABLET PO ×2 (10:39→20:44)
[2025-01-12] MEDS: ESCITALOPRAM OXALATE 10 MG TABLET PO (10:39)
[2025-01-12] MEDS: LOSARTAN POTASSIUM 50 MG TABLET PO (10:39)
[2025-01-12] MEDS: ATORVASTATIN 10 MG TABLET PO (10:39)
[2025-01-12] MEDS: THIAMINE HCL 50 MG TABLET PO (10:39)
[2025-01-12] MEDS: ENOXAPARIN 40 MG/0.4 ML SYRINGE SUB-Q (10:39)
--- NOTE | 2025-01-12 10:59 | WPDINFPN2 ---
Progress Note: A&P Assessment and Plan (1) Bacteremia: Code(s): R78.81 - Bacteremia Status: Acute (2) Rectal mass: Code(s): K62.89 - Other specified diseases of anus and rectum Status: Acute (3) Multiple drug resistant organism (MDRO) culture positive: Code(s): Z16.24 - Resistance to multiple antibiotics Status: Acute (4) Pseudomonas (aeruginosa) (mallei) (pseudomallei) as the cause of diseases classified elsewhere: Code(s): B96.5 - Pseudomonas (aeruginosa) (mallei) (pseudomallei) as the cause of diseases classified elsewhere Status: Acute Plan ASSESSMENT 1. BCx with staph hominis--contaminant only 2. PSAR bacteremia--this is real. Possibly from colon. Does have rectal mass and being worked up for possible coloreactal cancer. To have surgery at [facility] soon. UA not c/w UTI and CT chest without pneumonia 3. rectal mass 4. dementia 5. DM 6. HTN 7. acute respiratory failure on admit--resolved RECOMMENDATIONS: - continue meropenem for at least 7 days--today is day 3--assuming negative follow-up blood cultures. - follow repeat the blood cxs. d/w pharmacy staff Exam done via telemedicine with the aid of a HIPPA protected audio/visual interface. Patient was at [facility] in [place], [place] while I was in my office in [place]. With patient consent. Subjective Date/time seen: 01/12/25 10:59 Interval history: 01/12/2025: Afebrile and vital signs stable. WBC 4.7. Blood culture of 01/06: Pseudomonas, multidrug resistant, sensitive to meropenem. Now on meropenem, day 2. Recent blood culture 01/09: Pending. Review of Systems Review of Systems: All systems reviewed & are unremarkable except as noted in HPI and below Exam Narrative: Awake and alert and in no distress. Lying in bed. No respiratory difficulty. Abdomen without significant distension. No rash. Objective Data Vital Signs Vital Signs: Vital Signs - 24 hr 01/11/25 12:00 01/11/25 14:00 01/11/25 16:00 Temperature 98.1 F Pulse Rate 59 L 64 58 L Respiratory Rate 22 H Blood Pressure 148/64 H Pulse Oximetry 91 Oxygen Delivery 01/11/25 20:20 01/11/25 20:20 01/11/25 22:00 Temperature 97.6 F Pulse Rate 57 L 59 L Respiratory Rate 16 Blood Pressure 152/87 H Pulse Oximetry 95 Oxygen Delivery Room Air 01/12/25 00:00 01/12/25 04:00 01/12/25 04:00 Temperature Pulse Rate 68 59 L 59 L Respiratory Rate Blood Pressure Pulse Oximetry Oxygen Delivery 01/12/25 06:07 01/12/25 10:38 Temperature 97.6 F Pulse Rate 57 L 82 Respiratory Rate 16 Blood Pressure 147/85 H Pulse Oximetry 93 Oxygen Delivery Intake/Output Intake/Output: Intake & Output 01/09/25 01/10/25 01/11/25 01/12/25 23:59 23:59 23:59 23:59 Intake Total 4570 4460 2900 1140 Output Total 2635 067 4061 1500 Balance 3020 1757 -300 -683 Meds/Results Medications: Active Medications Generic Name Dose Route Start Last Admin Trade Name Freq PRN Reason Stop Dose Admin Acetaminophen 650 mg 01/03/25 16:05 Acetaminophen 325 Mg Tablet PO Q4H PRN Mild Pain (1-3) or Fever Atenolol 50 mg 01/05/25 16:15 01/12/25 10:38 Atenolol 50 Mg Tablet PO 50 mg DAILY [place] Administration Atorvastatin Calcium 10 mg 01/04/25 09:00 01/12/25 10:39 Atorvastatin 10 Mg Tablet PO 10 mg DAILY [place] Administration Dextrose 12.5 gm 01/03/25 22:40 Dextrose 50% 25 Gm/50 Ml Syringe IV PUSH PRN PRN Hypoglycemia Protocol Donepezil HCl 10 mg 01/04/25 09:00 01/12/25 10:38 Donepezil Hcl 10 Mg Tablet PO 10 mg DAILY [place] Administration Enoxaparin Sodium 40 mg 01/04/25 09:00 01/12/25 10:39 Enoxaparin 40 Mg/0.4 Ml Syringe SUB-Q 40 mg DAILY [place] Administration Escitalopram Oxalate 10 mg 01/04/25 09:00 01/12/25 10:39 Escitalopram Oxalate 10 Mg Tablet PO 10 mg DAILY [place] Administration Glucagon 1 mg 01/03/25 22:40 Glucagon For Inj 1 Mg Vial IM PRN PRN Hypoglycemia Protocol Glucose 15 gm 01/03/25 22:40 Glucose Oral Gel 15 Gm Of Glucse In 37.5 Gm Tube PO PRN PRN Hypoglycemia Protocol Hydralazine HCl 10 mg 01/09/25 22:18 Hydralazine Hcl 20 Mg/Ml Vial IV PUSH Q8H PRN Blood Pressure - High Dextrose 1,000 mls @ 100 mls/hr 01/03/25 22:40 Dextrose 5% 1,000 Ml IVPB PRN PRN Hypoglycemia Protocol Meropenem 1 gm/ Sodium 100 mls @ 200 mls/hr 01/11/25 08:00 01/12/25 08:22 Chloride IVPB 200 mls/hr Q8H [place] Administration Insulin Aspart 2 - 5 units 01/04/25 08:00 01/12/25 08:53 Insulin Aspart (*Bkc) 100 Units/Ml SUB-Q Not Given TIDWM [place] Protocol Losartan Potassium 50 mg 01/04/25 09:00 01/12/25 10:39 Losartan Potassium 50 Mg Tablet PO 50 mg DAILY [place] Administration Mirtazapine 15 mg 01/03/25 21:00 01/11/25 20:19 Mirtazapine 15 Mg Tablet PO 15 mg HS [place] Administration Pantoprazole Sodium 40 mg 01/04/25 09:00 01/12/25 10:39 Pantoprazole 40 Mg Tablet PO 40 mg Q12HR [place] Administration Tamsulosin HCl 0.4 mg 01/04/25 09:00 01/12/25 10:38 Tamsulosin Hcl 0.4 Mg Capsule PO 0.4 mg QAM [place] Administration Thiamine HCl 50 mg 01/04/25 09:00 01/12/25 10:39 Thiamine Hcl 50 Mg Tablet PO 50 mg DAILY [place] Administration Trazodone HCl 50 mg 01/04/25 21:00 01/11/25 20:19 Trazodone Hcl 50 Mg Tablet PO 50 mg QHS [place] Administration Radiology Results: ITS Impressions Chest X-Ray 01/03/25 14:08 Impression: No acute cardiopulmonary abnormality. Chest CTA 01/03/25 15:26 IMPRESSION: Negative for pulmonary embolism. No acute process Head CT 01/03/25 17:01 Impression: 1.No acute intracranial abnormality. Abdomen/Pelvis CT 01/03/25 17:05 IMPRESSION: 1. No acute intra-abdominal process, absence of intravenous contrast limits evaluation but there is no gross abscess identified 2. Incidental findings above. Correlate for bladder outlet obstruction Labs Labs: Laboratory Results - last 24 hr 01/11/25 01/11/25 01/11/25 12:20 17:07 20:54 WBC RBC Hgb Hct MCV MCH MCHC RDW Plt Count MPV Immature Gran % (Auto) Neut % (Auto) Lymph % (Auto) [place] % (Auto) Eos % (Auto) Baso % (Auto) Lymph # (Auto) [place] # (Auto) Eos # (Auto) Baso # (Auto) Abs Immat Gran (auto) Absolute Neuts (auto) Absolute Nucleated RBC Nucleated RBC % Sodium Potassium Chloride Carbon Dioxide Anion Gap BUN Creatinine Estim Creat Clear Calc Estimated GFR Glucose POC Capillary Glucose 246 H 241 H 165 H Calcium Total Bilirubin AST ALT Alkaline Phosphatase Total Protein Albumin 01/12/25 01/12/25 05:17 08:17 WBC 4.7 RBC 3.11 L Hgb 10.2 L Hct 31.6 L MCV 101.6 H MCH 32.8 MCHC 32.3 RDW 14.9 H Plt Count 237 MPV 9.8 Immature Gran % (Auto) 0.4 Neut % (Auto) 67.1 Lymph % (Auto) 10.5 L [place] % (Auto) 13.1 H Eos % (Auto) 7.8 H Baso % (Auto) 1.1 Lymph # (Auto) 0.50 L [place] # (Auto) 0.6 Eos # (Auto) 0.4 H Baso # (Auto) 0.1 Abs Immat Gran (auto) 0.02 Absolute Neuts (auto) 3.2 Absolute Nucleated RBC 0.000 Nucleated RBC % 0.0 Sodium 134 L Potassium 4.0 Chloride 99 Carbon Dioxide 34 H Anion Gap 1 L BUN 15 Creatinine 0.69 L Estim Creat Clear Calc 66 Estimated GFR > 60 Glucose 155 H POC Capillary Glucose 175 H Calcium 8.8 Total Bilirubin 0.4 AST 24 ALT 27 Alkaline Phosphatase 69 Total Protein 5.5 L Albumin 3.3 L
[2025-01-12] MEDS: INSULIN ASPART (*BKC) 100 UNITS/ML SUB-Q (12:38)
[2025-01-12] MEDS: LIDOCAINE 1% LOCAL INJ 2 ML AMPUL 5 ML INFILTRATE (15:40)
[2025-01-12] MEDS: MIRTAZAPINE 15 MG TABLET PO (20:44)
[2025-01-12] MEDS: SALINE LOCK FLUSH 10 ML IV PUSH (20:45)
[2025-01-13] MEDS: MEROPENEM 1 GM in SODIUM CHLORIDE 0.9% IV 100 ML 200 ML IVPB ×4 (00:03→23:49)
[2025-01-13] MEDS: SALINE LOCK FLUSH 10 ML IV PUSH ×4 (00:04→23:51)
[2025-01-13 05:28] LABS: Hematocrit 31.6 % (42.0-52.0); Hemoglobin 10.2 g/dL (14.0-18.0); Immature Granulocyte Percent A 0.4 % (0-0.5); Lymphocytes Absolute Auto 0.48 K/mm3 (0.9-3.2); Mean Corpuscular HGB Conc 32.3 g/dl (32-36); Mean Corpuscular Hemoglobin 33.0 pg (26-34); Mean Corpuscular Volume 102.3 fl (80-100); Nucleated Red Blood Cells Absolute Auto 0.000 K/mm3 (0.0-0.012); Nucleated Red Blood Cells Perc 0.0 % (0.0-0.2); Platelet Count Result 230 k/mm3 (150-375); Red Blood Count 3.09 M/mm3 (4.6-6.20); White Blood Count 4.8 K/mm3 (4.5-10.0)
[2025-01-13 05:39] LABS: Alanine Aminotransferase 36 U/L (6-50); Albumin Level 3.4 g/dL (3.5-5.1); Alkaline Phosphatase 68 U/L (38-126); Anion Gap 4 mmol/L (4-12); Aspartate Amino Transferase 39 U/L (17-59); Bilirubin,Total 0.4 mg/dL (0.2-1.3); Blood Urea Nitrogen 16 mg/dL (9-20); Calcium 9.0 mg/dL (8.4-10.2); Carbon Dioxide 32 mmol/L (22-30); Chloride 99 mmol/L (98-107); Estimated CRCL calculation 66 ml/min; Estimated Glomerular Filt Rate > 60; Glucose 144 mg/dL (65-110); Potassium 3.8 mmol/L (3.4-5.0); Sodium 135 mmol/L (137-145); Total Protein 5.6 g/dL (6.3-8.2)
[2025-01-13 06:00] VITALS: BP 188/80; PULSE 61; RESP 16; TEMP 36.4; O2SAT 95
[2025-01-13] MEDS: DONEPEZIL HCL 10 MG TABLET PO (09:09)
[2025-01-13] MEDS: ATORVASTATIN 10 MG TABLET PO (09:09)
[2025-01-13] MEDS: PANTOPRAZOLE 40 MG TABLET PO ×2 (09:09→20:49)
[2025-01-13] MEDS: ENOXAPARIN 40 MG/0.4 ML SYRINGE SUB-Q (09:09)
[2025-01-13] MEDS: ESCITALOPRAM OXALATE 10 MG TABLET PO (09:09)
[2025-01-13 09:10] VITALS: PULSE 70
[2025-01-13] MEDS: TAMSULOSIN HCL 0.4 MG CAPSULE PO (09:10)
[2025-01-13] MEDS: LOSARTAN POTASSIUM 50 MG TABLET PO (09:10)
[2025-01-13] MEDS: THIAMINE HCL 50 MG TABLET PO (09:10)
--- NOTE | 2025-01-13 11:02 | WPDINFPN2 ---
Progress Note: A&P Assessment and Plan (1) Bacteremia: Code(s): R78.81 - Bacteremia Status: Acute (2) Rectal mass: Code(s): K62.89 - Other specified diseases of anus and rectum Status: Acute (3) Multiple drug resistant organism (MDRO) culture positive: Code(s): Z16.24 - Resistance to multiple antibiotics Status: Acute (4) Pseudomonas (aeruginosa) (mallei) (pseudomallei) as the cause of diseases classified elsewhere: Code(s): B96.5 - Pseudomonas (aeruginosa) (mallei) (pseudomallei) as the cause of diseases classified elsewhere Status: Acute Plan ASSESSMENT 1. BCx with staph hominis--contaminant only 2. PSAR bacteremia--this is real. Possibly from colon. Does have rectal mass and being worked up for possible coloreactal cancer. To have surgery at [facility] soon. UA not c/w UTI and CT chest without pneumonia 3. rectal mass 4. dementia 5. DM 6. HTN 7. acute respiratory failure on admit--resolved RECOMMENDATIONS: - continue meropenem for at least 7 days--today is day 3--assuming negative follow-up blood cultures. - follow repeat the blood cxs. d/w pharmacy staff Exam done via telemedicine with the aid of a HIPPA protected audio/visual interface. Patient was at [facility] in [place], [place] while I was in my office in [place]. With patient consent. Subjective Date/time seen: 01/13/25 11:02 Interval history: 01/12/2025: Afebrile and vital signs stable. WBC 4.7. 01/13/2025: Afebrile with white blood cell count 4.8. BUN 16 and creatinine 0.68. Recent blood culture 01/09: Pending. Blood culture of 01/06: Pseudomonas, multidrug resistant, sensitive to meropenem. Now on meropenem, day 4. Review of Systems Review of Systems: All systems reviewed & are unremarkable except as noted in HPI and below Exam Narrative: Awake and alert and in no distress. Lying in bed. No respiratory difficulty. Abdomen without significant distension. No rash. Midline in place. Objective Data Vital Signs Vital Signs: Vital Signs - 24 hr 01/12/25 12:00 01/12/25 14:00 01/12/25 16:00 Temperature 97.8 F Pulse Rate 62 62 62 Respiratory Rate 18 Blood Pressure 155/80 H Pulse Oximetry 95 01/12/25 20:30 01/12/25 22:00 01/13/25 06:00 Temperature 97.3 F L 97.6 F Pulse Rate 62 57 L 61 Respiratory Rate 16 16 Blood Pressure 160/75 H 188/80 H Pulse Oximetry 95 95 01/13/25 09:10 Temperature Pulse Rate 70 Respiratory Rate Blood Pressure Pulse Oximetry Intake/Output Intake/Output: Intake & Output 01/10/25 01/11/25 01/12/25 01/13/25 23:59 23:59 23:59 23:59 Intake Total 4460 2900 2370 1227 Output Total 600 3200 2400 2100 Balance 6025 -300 -30 -873 Meds/Results Medications: Active Medications Generic Name Dose Route Start Last Admin Trade Name Freq PRN Reason Stop Dose Admin Acetaminophen 650 mg 01/03/25 16:05 Acetaminophen 325 Mg Tablet PO Q4H PRN Mild Pain (1-3) or Fever Atenolol 50 mg 01/05/25 16:15 01/13/25 09:10 Atenolol 50 Mg Tablet PO 50 mg DAILY [place] Administration Atorvastatin Calcium 10 mg 01/04/25 09:00 01/13/25 09:09 Atorvastatin 10 Mg Tablet PO 10 mg DAILY [place] Administration Dextrose 12.5 gm 01/03/25 22:40 Dextrose 50% 25 Gm/50 Ml Syringe IV PUSH PRN PRN Hypoglycemia Protocol Donepezil HCl 10 mg 01/04/25 09:00 01/13/25 09:09 Donepezil Hcl 10 Mg Tablet PO 10 mg DAILY [place] Administration Enoxaparin Sodium 40 mg 01/04/25 09:00 01/13/25 09:09 Enoxaparin 40 Mg/0.4 Ml Syringe SUB-Q 40 mg DAILY [place] Administration Escitalopram Oxalate 10 mg 01/04/25 09:00 01/13/25 09:09 Escitalopram Oxalate 10 Mg Tablet PO 10 mg DAILY [place] Administration Glucagon 1 mg 01/03/25 22:40 Glucagon For Inj 1 Mg Vial IM PRN PRN Hypoglycemia Protocol Glucose 15 gm 01/03/25 22:40 Glucose Oral Gel 15 Gm Of Glucse In 37.5 Gm Tube PO PRN PRN Hypoglycemia Protocol Hydralazine HCl 10 mg 01/09/25 22:18 Hydralazine Hcl 20 Mg/Ml Vial IV PUSH Q8H PRN Blood Pressure - High Dextrose 1,000 mls @ 100 mls/hr 01/03/25 22:40 Dextrose 5% 1,000 Ml IVPB PRN PRN Hypoglycemia Protocol Meropenem 1 gm/ Sodium 100 mls @ 200 mls/hr 01/11/25 08:00 01/13/25 09:14 Chloride IVPB 01/18/25 00:29 200 mls/hr Q8H [place] Administration Insulin Aspart 2 - 5 units 01/04/25 08:00 01/13/25 08:24 Insulin Aspart (*Bkc) 100 Units/Ml SUB-Q Not Given TIDWM [place] Protocol Losartan Potassium 50 mg 01/04/25 09:00 01/13/25 09:10 Losartan Potassium 50 Mg Tablet PO 50 mg DAILY [place] Administration Mirtazapine 15 mg 01/03/25 21:00 01/12/25 20:44 Mirtazapine 15 Mg Tablet PO 15 mg HS [place] Administration Pantoprazole Sodium 40 mg 01/04/25 09:00 01/13/25 09:09 Pantoprazole 40 Mg Tablet PO 40 mg Q12HR [place] Administration Sodium Chloride 10 ml 01/12/25 22:00 01/13/25 00:04 Saline Lock Flush IV PUSH 10 ml Q8HR [place] Administration Sodium Chloride 10 ml 01/12/25 16:21 Saline Lock Flush IV PUSH PRN PRN Flush Sodium Chloride 20 ml 01/12/25 16:21 Saline Lock Flush IV PUSH PRN PRN after blood draws Tamsulosin HCl 0.4 mg 01/04/25 09:00 01/13/25 09:10 Tamsulosin Hcl 0.4 Mg Capsule PO 0.4 mg QAM [place] Administration Thiamine HCl 50 mg 01/04/25 09:00 01/13/25 09:10 Thiamine Hcl 50 Mg Tablet PO 50 mg DAILY [place] Administration Trazodone HCl 50 mg 01/04/25 21:00 01/12/25 20:44 Trazodone Hcl 50 Mg Tablet PO 50 mg QHS [place] Administration Radiology Results: ITS Impressions Chest X-Ray 01/03/25 14:08 Impression: No acute cardiopulmonary abnormality. Chest CTA 01/03/25 15:26 IMPRESSION: Negative for pulmonary embolism. No acute process Head CT 01/03/25 17:01 Impression: 1.No acute intracranial abnormality. Abdomen/Pelvis CT 01/03/25 17:05 IMPRESSION: 1. No acute intra-abdominal process, absence of intravenous contrast limits evaluation but there is no gross abscess identified 2. Incidental findings above. Correlate for bladder outlet obstruction Labs Labs: Laboratory Results - last 24 hr 01/12/25 01/12/25 01/12/25 11:32 16:49 20:38 WBC RBC Hgb Hct MCV MCH MCHC RDW Plt Count MPV Immature Gran % (Auto) Neut % (Auto) Lymph % (Auto) [place] % (Auto) Eos % (Auto) Baso % (Auto) Lymph # (Auto) [place] # (Auto) Eos # (Auto) Baso # (Auto) Abs Immat Gran (auto) Absolute Neuts (auto) Absolute Nucleated RBC Nucleated RBC % Sodium Potassium Chloride Carbon Dioxide Anion Gap BUN Creatinine Estim Creat Clear Calc Estimated GFR Glucose POC Capillary Glucose 238 H 185 H 216 H Calcium Total Bilirubin AST ALT Alkaline Phosphatase Total Protein Albumin 01/13/25 01/13/25 05:10 08:19 WBC 4.8 RBC 3.09 L Hgb 10.2 L Hct 31.6 L MCV 102.3 H MCH 33.0 MCHC 32.3 RDW 15.2 H Plt Count 230 MPV 9.6 Immature Gran % (Auto) 0.4 Neut % (Auto) 70.9 Lymph % (Auto) 9.9 L [place] % (Auto) 11.2 H Eos % (Auto) 6.8 H Baso % (Auto) 0.8 Lymph # (Auto) 0.48 L [place] # (Auto) 0.5 Eos # (Auto) 0.3 Baso # (Auto) 0.0 Abs Immat Gran (auto) 0.02 Absolute Neuts (auto) 3.4 Absolute Nucleated RBC 0.000 Nucleated RBC % 0.0 Sodium 135 L Potassium 3.8 Chloride 99 Carbon Dioxide 32 H Anion Gap 4 BUN 16 Creatinine 0.68 L Estim Creat Clear Calc 66 Estimated GFR > 60 Glucose 144 H POC Capillary Glucose 178 H Calcium 9.0 Total Bilirubin 0.4 AST 39 ALT 36 Alkaline Phosphatase 68 Total Protein 5.6 L Albumin 3.4 L
[2025-01-13] MEDS: INSULIN ASPART (*BKC) 100 UNITS/ML SUB-Q (13:08)
--- NOTE | 2025-01-13 13:51 | P.PNIM_ITS ---
Progress Note: A&P Assessment and Plan (1) Bacteremia: Code(s): R78.81 - Bacteremia Status: Acute Assessment and Plan: - blood cultures obtained 01/03 - 03/08 bottles positive for Staph Hominis - TTE with no signs of endocarditis - no wounds - suspect contaminant, but patient presented with rigors, procal 28 (which could be from malignancy) - started on vancomycin overnight 01/06, will continue for now - repeat blood cultures show growth of E.coli - Will restart Ceftriaxone per ID pharm recommendations - Continue to monitor culture growth, sensitives - First set of BCs showing growth of S. Hominis with resistivity to erythromycin/Trimethroprim, but otherwise susceptabile. - Infectious disease consult - initially changed to Cefepime - Repeat blood cultures - Monitor previous cultures' sensitivities - 01/13: The blood cultures drawn on 01/06 show growth of Pseudomonas aeruginosa - Continue Meropenem 1gm q8hr until 01/18 (2) Acute respiratory failure: Code(s): J96.00 - Acute respiratory failure, unspecified whether with hypoxia or hypercapnia Status: Acute Assessment and Plan: - presented with increased shortness of breath - on 2L NC, no home O2 requirement - influenza A/B, RSV and COVID negative - CTA chest with no PE or other acute process. Moderate emphysematous changes. - lungs clear on exam - started on doxycycline and Rocephin for possible PNA - will hold off on further antibiotics for pneumonia for now - weaned to RA - remains off O2 supp - No changes (3) Alzheimer's dementia: Code(s): G30.9 - Alzheimer's disease, unspecified; F02.80 - Dementia in other diseases classified elsewhere, unspecified severity, without behavioral disturbance, psychotic disturbance, mood disturbance, and anxiety Status: Acute Assessment and Plan: - progressively worsening memory loss. Alert and oriented x3 however has very poor short-term memory and poor situational awareness. Very poor PO intake at home, failure to thrive. Lives at home alone with aide services. 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 Plan is likely for him to return home with home care/aide services until his follow-up appointment at [facility] next week to determine next steps (if any) for rectal mass. Depending on this appointment, daughter may elect hospice services for the patient. -Continue home medications (4) Lactic acidosis: Code(s): E87.20 - Acidosis, unspecified Status: Acute Assessment and Plan: - initial LA 4.2, normalized with IV fluids - CT A/P with no acute process - follow-up blood cultures - encourage PO intake - Resolved (5) Near syncope: Code(s): R55 - Syncope and collapse Status: Acute Assessment and Plan: - orthostatic vitals negative - echo with EF 60-65%, G1 DD - suspect due to dehydration - PT/OT recommended home care - monitor on tele (6) Enlarged prostate: Code(s): N40.0 - Benign prostatic hyperplasia without lower urinary tract symptoms Status: Acute Assessment and Plan: -PSA WNL -Started on Flomax - bladder scans have been negative for retention (7) Rectal mass: Code(s): K62.89 - Other specified diseases of anus and rectum Status: Acute Assessment and Plan: - recent admission for rectal bleeding. Found to have rectal mass and was referred to colorectal surgery at [facility] (8) Type 2 diabetes mellitus without complications: Code(s): E11.9 - Type 2 diabetes mellitus without complications Status: Chronic Assessment and Plan: - hold home PO meds - low dose SSI - continue Accu-Cheks a.c. HS - Diabetic diet (9) Essential (primary) hypertension: Code(s): I10 - Essential (primary) hypertension Status: Chronic Assessment and Plan: - BP elevated likely due to missed BP meds - resume home losartan and atenolol. Titrate PRN (10) Malnutrition: Code(s): E46 - Unspecified protein-calorie malnutrition Status: Acute Assessment and Plan: Severe protein-calorie malnutrition - start PO supplements - dietitian following Plan Code status: DNR DVT prophylaxis: Lovenox Dispo: likely home with [facility] once repeat cultures result Subjective Date/time seen: 01/13/25 13:51 Interval history: 79-year-old male presents the hospital with dizziness possible syncope. He was recently in hospital for rectal bleeding colonoscopy was done which showed lunate ligament appearing rectal mass. 01/13/2025 Patient sitting comfortably in bed at time of exam. ID recommends continuing Meropenem for 7 days - today is day 3. Pt is otherwise comfortably and has no complaints at this time. Pt is pending placement at [facility]. Medically stable for discharge as he has a midline and will be able to complete rest of IV abx at facility. Review of Systems Review of Systems: 12 systems were reviewed and are negativ e except for as per HPI. Exam Narrative: General: chronically ill appearing, frail Eyes: EOMI ENT: neck supple Cardiovascular: Regular rate and rhythm Respiratory: Clear to auscultation, respirations even and unlabored on RA Gastrointestinal: Soft, non tender Genitourinary: no suprapubic tenderness Musculoskeletal: No edema Skin: warm, dry Neuro: Alert and oriented x3, but forgetful in conversation. Psych: Mood appropriate Objective Data Vital Signs Vital Signs: Vital Signs - 24 hr 01/12/25 14:00 01/12/25 16:00 01/12/25 20:30 Temperature 97.8 F Pulse Rate 62 62 62 Respiratory Rate 18 Blood Pressure 155/80 H Pulse Oximetry 95 01/12/25 22:00 01/13/25 06:00 01/13/25 09:10 Temperature 97.3 F L 97.6 F Pulse Rate 57 L 61 70 Respiratory Rate 16 16 Blood Pressure 160/75 H 188/80 H Pulse Oximetry 95 95 Intake/Output Intake/Output: Intake & Output 01/10/25 01/11/25 01/12/25 01/13/25 23:59 23:59 23:59 23:59 Intake Total 4460 2900 2370 1345 Output Total 600 3200 2400 2100 Balance 3860 -300 -30 -755 Meds/Results Medications: Active Medications Generic Name Dose Route Start Last Admin Trade Name Freq PRN Reason Stop Dose Admin Acetaminophen 650 mg 01/03/25 16:05 Acetaminophen 325 Mg Tablet PO Q4H PRN Mild Pain (1-3) or Fever Atenolol 50 mg 01/05/25 16:15 01/13/25 09:10 Atenolol 50 Mg Tablet PO 50 mg DAILY [place] Administration Atorvastatin Calcium 10 mg 01/04/25 09:00 01/13/25 09:09 Atorvastatin 10 Mg Tablet PO 10 mg DAILY [place] Administration Dextrose 12.5 gm 01/03/25 22:40 Dextrose 50% 25 Gm/50 Ml Syringe IV PUSH PRN PRN Hypoglycemia Protocol Donepezil HCl 10 mg 01/04/25 09:00 01/13/25 09:09 Donepezil Hcl 10 Mg Tablet PO 10 mg DAILY [place] Administration Enoxaparin Sodium 40 mg 01/04/25 09:00 01/13/25 09:09 Enoxaparin 40 Mg/0.4 Ml Syringe SUB-Q 40 mg DAILY [place] Administration Escitalopram Oxalate 10 mg 01/04/25 09:00 01/13/25 09:09 Escitalopram Oxalate 10 Mg Tablet PO 10 mg DAILY [place] Administration Glucagon 1 mg 01/03/25 22:40 Glucagon For Inj 1 Mg Vial IM PRN PRN Hypoglycemia Protocol Glucose 15 gm 01/03/25 22:40 Glucose Oral Gel 15 Gm Of Glucse In 37.5 Gm Tube PO PRN PRN Hypoglycemia Protocol Hydralazine HCl 10 mg 01/09/25 22:18 Hydralazine Hcl 20 Mg/Ml Vial IV PUSH Q8H PRN Blood Pressure - High Dextrose 1,000 mls @ 100 mls/hr 01/03/25 22:40 Dextrose 5% 1,000 Ml IVPB PRN PRN Hypoglycemia Protocol Meropenem 1 gm/ Sodium 100 mls @ 200 mls/hr 01/11/25 08:00 01/13/25 09:14 Chloride IVPB 01/18/25 00:29 200 mls/hr Q8H [place] Administration Insulin Aspart 2 - 5 units 01/04/25 08:00 01/13/25 13:08 Insulin Aspart (*Bkc) 100 Units/Ml SUB-Q 4 units TIDWM [place] Administration Protocol Losartan Potassium 50 mg 01/04/25 09:00 01/13/25 09:10 Losartan Potassium 50 Mg Tablet PO 50 mg DAILY [place] Administration Mirtazapine 15 mg 01/03/25 21:00 01/12/25 20:44 Mirtazapine 15 Mg Tablet PO 15 mg HS [place] Administration Pantoprazole Sodium 40 mg 01/04/25 09:00 01/13/25 09:09 Pantoprazole 40 Mg Tablet PO 40 mg Q12HR [place] Administration Sodium Chloride 10 ml 01/12/25 22:00 01/13/25 00:04 Saline Lock Flush IV PUSH 10 ml Q8HR [place] Administration Sodium Chloride 10 ml 01/12/25 16:21 Saline Lock Flush IV PUSH PRN PRN Flush Sodium Chloride 20 ml 01/12/25 16:21 Saline Lock Flush IV PUSH PRN PRN after blood draws Tamsulosin HCl 0.4 mg 01/04/25 09:00 01/13/25 09:10 Tamsulosin Hcl 0.4 Mg Capsule PO 0.4 mg QAM [place] Administration Thiamine HCl 50 mg 01/04/25 09:00 01/13/25 09:10 Thiamine Hcl 50 Mg Tablet PO 50 mg DAILY [place] Administration Trazodone HCl 50 mg 01/04/25 21:00 01/12/25 20:44 Trazodone Hcl 50 Mg Tablet PO 50 mg QHS [place] Administration Radiology Results: ITS Impressions Chest X-Ray 01/03/25 14:08 Impression: No acute cardiopulmonary abnormality. Chest CTA 01/03/25 15:26 IMPRESSION: Negative for pulmonary embolism. No acute process Head CT 01/03/25 17:01 Impression: 1.No acute intracranial abnormality. Abdomen/Pelvis CT 01/03/25 17:05 IMPRESSION: 1. No acute intra-abdominal process, absence of intravenous contrast limits evaluation but there is no gross abscess identified 2. Incidental findings above. Correlate for bladder outlet obstruction Labs Labs: Laboratory Results - last 24 hr 01/12/25 01/12/25 01/13/25 16:49 20:38 05:10 WBC 4.8 RBC 3.09 L Hgb 10.2 L Hct 31.6 L MCV 102.3 H MCH 33.0 MCHC 32.3 RDW 15.2 H Plt Count 230 MPV 9.6 Immature Gran % (Auto) 0.4 Neut % (Auto) 70.9 Lymph % (Auto) 9.9 L [place] % (Auto) 11.2 H Eos % (Auto) 6.8 H Baso % (Auto) 0.8 Lymph # (Auto) 0.48 L [place] # (Auto) 0.5 Eos # (Auto) 0.3 Baso # (Auto) 0.0 Abs Immat Gran (auto) 0.02 Absolute Neuts (auto) 3.4 Absolute Nucleated RBC 0.000 Nucleated RBC % 0.0 Sodium 135 L Potassium 3.8 Chloride 99 Carbon Dioxide 32 H Anion Gap 4 BUN 16 Creatinine 0.68 L Estim Creat Clear Calc 66 Estimated GFR > 60 Glucose 144 H POC Capillary Glucose 185 H 216 H Calcium 9.0 Total Bilirubin 0.4 AST 39 ALT 36 Alkaline Phosphatase 68 Total Protein 5.6 L Albumin 3.4 L 01/13/25 01/13/25 08:19 11:31 WBC RBC Hgb Hct MCV MCH MCHC RDW Plt Count MPV Immature Gran % (Auto) Neut % (Auto) Lymph % (Auto) [place] % (Auto) Eos % (Auto) Baso % (Auto) Lymph # (Auto) [place] # (Auto) Eos # (Auto) Baso # (Auto) Abs Immat Gran (auto) Absolute Neuts (auto) Absolute Nucleated RBC Nucleated RBC % Sodium Potassium Chloride Carbon Dioxide Anion Gap BUN Creatinine Estim Creat Clear Calc Estimated GFR Glucose POC Capillary Glucose 178 H 302 H Calcium Total Bilirubin AST ALT Alkaline Phosphatase Total Protein Albumin Quality VTE Prophylaxis VTE prophylaxis: mechanical ordered and pharmacologic ordered
[2025-01-13 14:00] VITALS: BP 167/71; PULSE 59; RESP 18; TEMP 36.3; O2SAT 94
[2025-01-13] MEDS: MIRTAZAPINE 15 MG TABLET PO (20:49)
[2025-01-13 22:00] VITALS: BP 157/85; PULSE 58; RESP 18; TEMP 36.5; O2SAT 96
[2025-01-14 04:41] LABS: Hematocrit 30.9 % (42.0-52.0); Hemoglobin 10.1 g/dL (14.0-18.0); Immature Granulocyte Percent A 0.2 % (0-0.5); Lymphocytes Absolute Auto 0.51 K/mm3 (0.9-3.2); Mean Corpuscular HGB Conc 32.7 g/dl (32-36); Mean Corpuscular Hemoglobin 32.9 pg (26-34); Mean Corpuscular Volume 100.7 fl (80-100); Nucleated Red Blood Cells Absolute Auto 0.000 K/mm3 (0.0-0.012); Nucleated Red Blood Cells Perc 0.0 % (0.0-0.2); Platelet Count Result 225 k/mm3 (150-375); Red Blood Count 3.07 M/mm3 (4.6-6.20); White Blood Count 4.8 K/mm3 (4.5-10.0)
[2025-01-14 04:56] LABS: Alanine Aminotransferase 35 U/L (6-50); Albumin Level 3.3 g/dL (3.5-5.1); Alkaline Phosphatase 63 U/L (38-126); Anion Gap 1 mmol/L (4-12); Aspartate Amino Transferase 30 U/L (17-59); Bilirubin,Total 0.5 mg/dL (0.2-1.3); Blood Urea Nitrogen 18 mg/dL (9-20); Calcium 8.7 mg/dL (8.4-10.2); Carbon Dioxide 31 mmol/L (22-30); Chloride 101 mmol/L (98-107); Estimated CRCL calculation 62 ml/min; Estimated Glomerular Filt Rate > 60; Glucose 144 mg/dL (65-110); Potassium 3.9 mmol/L (3.4-5.0); Sodium 133 mmol/L (137-145); Total Protein 5.5 g/dL (6.3-8.2)
[2025-01-14 06:00] VITALS: BP 136/79; PULSE 57; RESP 16; TEMP 36.4; O2SAT 93
[2025-01-14] MEDS: ATORVASTATIN 10 MG TABLET PO (09:00)
[2025-01-14] MEDS: THIAMINE HCL 50 MG TABLET PO (09:00)
[2025-01-14 09:01] VITALS: PULSE 72
[2025-01-14] MEDS: ESCITALOPRAM OXALATE 10 MG TABLET PO (09:01)
[2025-01-14] MEDS: LOSARTAN POTASSIUM 50 MG TABLET PO (09:01)
[2025-01-14] MEDS: PANTOPRAZOLE 40 MG TABLET PO (09:01)
[2025-01-14] MEDS: TAMSULOSIN HCL 0.4 MG CAPSULE PO (09:01)
[2025-01-14] MEDS: DONEPEZIL HCL 10 MG TABLET PO (09:04)
[2025-01-14] MEDS: ENOXAPARIN 40 MG/0.4 ML SYRINGE SUB-Q (09:04)
[2025-01-14] MEDS: MEROPENEM 1 GM in SODIUM CHLORIDE 0.9% IV 100 ML 200 ML IVPB (09:05)
--- NOTE | 2025-01-14 10:13 | PM.DS ---
DS: Admitting Diagnosis Discharge Date 01/14/25 Admitting Diagnosis - acute respiratory failure - Alzheimer's dementia - lactic acidosis - near syncope -rectal mass DS: Discharge Diagnosis Discharge Diagnosis (1) Bacteremia: Code(s): R78.81 - Bacteremia Status: Acute (2) Acute respiratory failure: Code(s): J96.00 - Acute respiratory failure, unspecified whether with hypoxia or hypercapnia Status: Acute (3) Alzheimer's dementia: Code(s): G30.9 - Alzheimer's disease, unspecified; F02.80 - Dementia in other diseases classified elsewhere, unspecified severity, without behavioral disturbance, psychotic disturbance, mood disturbance, and anxiety Status: Acute (4) Lactic acidosis: Code(s): E87.20 - Acidosis, unspecified Status: Acute (5) Near syncope: Code(s): R55 - Syncope and collapse Status: Acute (6) Enlarged prostate: Code(s): N40.0 - Benign prostatic hyperplasia without lower urinary tract symptoms Status: Acute (7) Rectal mass: Code(s): K62.89 - Other specified diseases of anus and rectum Status: Acute (8) Type 2 diabetes mellitus without complications: Code(s): E11.9 - Type 2 diabetes mellitus without complications Status: Chronic (9) Essential (primary) hypertension: Code(s): I10 - Essential (primary) hypertension Status: Chronic (10) Malnutrition: Code(s): E46 - Unspecified protein-calorie malnutrition Status: Acute DS: Summary Hospital Course Reason for hospitalization: - acute respiratory failure - Alzheimer's dementia - lactic acidosis - near syncope -rectal mass Hospital Course: Patient is a 79 yo male with past medical history of Alzheimer?s dementia, type 2 diabetes mellitus, hypertension, benign prostatic hyperplasia, and malnutrition, who was admitted with acute respiratory failure and bacteremia. On admission, the patient presented with increased shortness of breath and was found to be in acute respiratory failure, requiring 2L nasal cannula oxygen. Infectious workup was initiated due to rigors and elevated procalcitonin (28), with initial blood cultures positive for Staphylococcus hominis (1/4 bottles), suspected to be a contaminant. However, the patient subsequently developed true bacteremia with multidrug-resistant Pseudomonas aeruginosa (blood cultures /), sensitive to meropenem. Infectious Disease was consulted and recommended initiation of meropenem, which was continued for a total of 7 days. Repeat blood cultures were obtained which showed no growth at 48 hours. Respiratory status?improved rapidly; the patient was weaned off supplemental oxygen and remained stable on room air. CTA chest was negative for pulmonary embolism or acute infectious process, but did show moderate emphysematous changes. Empiric antibiotics for possible pneumonia (doxycycline and ceftriaxone) were discontinued as there was no evidence of pneumonia. During hospitalization, the patient was also evaluated for a rectal mass, previously identified during a recent admission for rectal bleeding. Hemoglobin remained stable. The patient was scheduled for outpatient follow-up at [place] however missed this appointment while hospitalized and will need to reschedule determine next steps. Other issues addressed?included lactic acidosis (initial LA 4.2, resolved with IV fluids), near syncope (likely secondary to dehydration, orthostatic vitals negative, echo with normal EF), and severe protein-calorie malnutrition (started on oral supplements, dietitian involved). The patient?s diabetes was managed with sliding scale insulin and a diabetic diet. Home oral agents will be resumed on discharge. Hypertension was managed by resuming home losartan and atenolol. Benign prostatic hyperplasia for which patient was started on tamsulosin; bladder scans were negative for retention and PSA was within normal limits. Throughout the stay, the patient remained afebrile and hemodynamically stable. White blood cell count remained within normal limits. Intake and output were closely monitored, with gradual improvement in fluid balance. The patient?s cognitive status remained at baseline, with poor short-term memory and poor oral intake, but he was alert and oriented x3. Disposition: The patient?s code status is DNR. He will be discharged to SNF to complete the course of IV antibiotics. He will follow up with colorectal surgery at [facility] for further management of his rectal mass. Daughter (POA) is aware of the plan and will consider hospice depending on the outcome of the surgical evaluation. Consultations: Infectious Disease was consulted and managed the patient?s bacteremia and antibiotic regimen. Summary: The patient was admitted with acute respiratory failure and bacteremia, found to have multidrug-resistant Pseudomonas aeruginosa bacteremia, likely secondary to a rectal mass. He was treated with meropenem with good clinical response. Other acute issues, including lactic acidosis and near syncope, resolved with supportive care. Chronic comorbidities were managed and the patient is stable for discharge to SNF. Time Spent with Patient Time attestation: Total time spent providing and/or coordinating discharge services: Time spent: Greater than 30 minutes Exam Narrative: General: NAD, frail Eyes: EOMI ENT: neck supple Cardiovascular: Regular rate and rhythm Respiratory: Clear to auscultation, respirations even and unlabored on RA Gastrointestinal: Soft, non tender Genitourinary: no suprapubic tenderness Musculoskeletal: No edema Skin: warm, dry Neuro: Alert. Psych: Mood appropriate DS: Data Data Completed and Pending Completed studies during hospitalization: ITS Impressions Chest X-Ray 01/03/25 14:08 Impression: No acute cardiopulmonary abnormality. Chest CTA 01/03/25 15:26 IMPRESSION: Negative for pulmonary embolism. No acute process Head CT 01/03/25 17:01 Impression: 1.No acute intracranial abnormality. Abdomen/Pelvis CT 01/03/25 17:05 IMPRESSION: 1. No acute intra-abdominal process, absence of intravenous contrast limits evaluation but there is no gross abscess identified 2. Incidental findings above. Correlate for bladder outlet obstruction Labs on day of discharge: Labs from last 24 hours 01/14/25 01/14/25 01/13/25 07:54 04:30 16:30 WBC 4.8 RBC 3.07 L Hgb 10.1 L Hct 30.9 L MCV 100.7 H MCH 32.9 MCHC 32.7 RDW 15.0 H Plt Count 225 MPV 9.2 Immature Gran % (Auto) 0.2 Neut % (Auto) 72.1 Lymph % (Auto) 10.6 L [place] % (Auto) 9.4 H Eos % (Auto) 6.7 H Baso % (Auto) 1.0 Lymph # (Auto) 0.51 L [place] # (Auto) 0.5 Eos # (Auto) 0.3 Baso # (Auto) 0.1 Abs Immat Gran (auto) 0.01 Absolute Neuts (auto) 3.5 Absolute Nucleated RBC 0.000 Nucleated RBC % 0.0 Sodium 133 L Potassium 3.9 Chloride 101 Carbon Dioxide 31 H Anion Gap 1 L BUN 18 Creatinine 0.73 Estim Creat Clear Calc 62 Estimated GFR > 60 Glucose 144 H POC Capillary Glucose 157 H 163 H Calcium 8.7 Total Bilirubin 0.5 AST 30 ALT 35 Alkaline Phosphatase 63 Total Protein 5.5 L Albumin 3.3 L 01/13/25 11:31 WBC RBC Hgb Hct MCV MCH MCHC RDW Plt Count MPV Immature Gran % (Auto) Neut % (Auto) Lymph % (Auto) [place] % (Auto) Eos % (Auto) Baso % (Auto) Lymph # (Auto) [place] # (Auto) Eos # (Auto) Baso # (Auto) Abs Immat Gran (auto) Absolute Neuts (auto) Absolute Nucleated RBC Nucleated RBC % Sodium Potassium Chloride Carbon Dioxide Anion Gap BUN Creatinine Estim Creat Clear Calc Estimated GFR Glucose POC Capillary Glucose 302 H Calcium Total Bilirubin AST ALT Alkaline Phosphatase Total Protein Albumin Preliminary micro results at discharge 01/09/25 18:23 Blood Culture - Preliminary Blood 01/09/25 18:34 Blood Culture - Preliminary Blood Discharge Plan Discharge Attending physician on discharge: Nereida Dallas Consulting providers: Diana Hayes; Damian Granados; Ariana Lauren Discharging Clinician: Diana Haeys Anticipated Discharge Date/Time: 01/14/25 11:31 Patient Disposition: Home Activity: unlimited Diet: regular Discharge Instructions: Diagnosis and Treatment Plan: This patient is being discharged after treatment for?Pseudomonas aeruginosa?bacteremia, likely originating from the colon. He will continue intravenous meropenem for 5 more days. Please ensure strict adherence to the prescribed dosing schedule and monitor for adverse effects, including neurocognitive changes, gastrointestinal symptoms, and signs of superinfection.?Notify the medical team immediately if new symptoms arise. Antibiotic Stewardship: Continue meropenem 1g q8H for 10 doses. Meropenem should be administered exactly as ordered. Do not discontinue or skip doses, as incomplete therapy increases the risk of treatment failure and antimicrobial resistance.?Monitor for diarrhea, especially if severe or bloody, and report promptly. Nutrition and Protein Supplementation: Optimal nutrition is critical for recovery, infection resolution, and glycemic control. Diabetic protein supplement:?Continue with each meal to help meet protein goals and support glycemic management. Protein supplementation is safe and recommended in older adults with diabetes, and there is no need to restrict protein below 0.8 g/kg/day unless advanced kidney disease is present.? Dietary pattern:?Emphasize nutrient-dense foods, including vegetables, whole grains, and fiber (25?35 g/day), and maintain adequate hydration. Monitoring and Follow-up: Regularly assess weight, nutritional intake, and glycemic control. Monitor for signs of malnutrition, dehydration, or worsening infection. Ensure vitamin D status is checked and supplemented if deficient.[3-4][6] Additional Instructions: Alert staff to possible side effects of meropenem, including seizures, delirium, and motor impairment; avoid operating machinery until tolerance is established.? If the patient is taking valproic acid, monitor levels closely due to potential drug interactions.[2] Contact Information: Report any new or concerning symptoms to the medical team immediately. Adherence to these instructions is essential for optimal recovery and prevention of complications. Patient also needs to follow-up at [place] for a rectal mass as he will miss his originally scheduled appointment. Daughter is aware of this. Patient Instructions: Antibiotic Form Patient Language: South Korean Stand Alone Forms: General Discharge Information Follow-up/Referrals: Lucía Navarro DO [Primary Care Provider, [facility]] - 1 Week Referral Note: follow-up as outpatient Discharge Medications: New meropenem-0.9% sodium chloride 1 gram/50 mL piggyback 1 g IV Q8H tamsulosin 0.4 mg Capsule 0.4 mg PO QAM 30 Days Qty: 30 0RF Continued trazodone 50 mg tablet 50 mg PO QHS Qty: 90 1RF escitalopram oxalate [Lexapro] 10 mg tablet 10 mg PO DAILY Qty: 90 1RF losartan 50 mg tablet 50 mg PO DAILY pioglitazone 45 mg tablet 45 mg PO DAILY atenolol [Tenormin] 50 mg tablet 50 mg PO DAILY Qty: 90 1RF omeprazole 20 mg capsule,delayed release(DR/EC) 20 mg PO BID metformin 500 mg tablet 500 mg PO BID mirtazapine 15 mg tablet 15 mg PO HS (DME) lancets [OneTouch Delica Lancets] 33 gauge misc See Rx Instructions .ROUTE .MEDSUPPLY Qty: 100 Rx Instructions: As directed (DME) blood sugar diagnostic Strip See Rx Instructions .ROUTE .MEDSUPPLY Qty: 10 Rx Instructions: As directed atorvastatin 10 mg tablet 10 mg PO DAILY Qty: 90 1RF thiamine HCl (vitamin B1) 50 mg tablet 50 mg PO DAILY Qty: 90 1RF glimepiride 2 mg tablet 1 mg PO BID Qty: 90 1RF ferrous sulfate 324 mg (65 mg iron) tablet,delayed release (DR/EC) 324 mg PO DAILY Qty: 90 1RF magnesium oxide 400 mg magnesium tablet 400 mg PO DAILY Qty: 7 0RF donepezil [Aricept] 10 mg tablet 10 mg PO DAILY Qty: 90 1RF Date of admission: 01/04/25 11:06 Primary Care Provider: Lucía Navarro Admitting Provider: Zachayr Hernandez Attending physician on admission: Zachary Hernandez Condition: Stable
--- NOTE | 2025-01-14 11:59 | P.PNINF_ITS ---
Progress Note: A&P Assessment and Plan (1) Bacteremia: Code(s): R78.81 - Bacteremia Status: Acute (2) Rectal mass: Code(s): K62.89 - Other specified diseases of anus and rectum Status: Acute (3) Multiple drug resistant organism (MDRO) culture positive: Code(s): Z16.24 - Resistance to multiple antibiotics Status: Acute (4) Pseudomonas (aeruginosa) (mallei) (pseudomallei) as the cause of diseases classified elsewhere: Code(s): B96.5 - Pseudomonas (aeruginosa) (mallei) (pseudomallei) as the cause of diseases classified elsewhere Status: Acute Plan ASSESSMENT 1. BCx with staph hominis--contaminant only 2. PSAR bacteremia--this is real. Possibly from colon. Does have rectal mass and being worked up for possible coloreactal cancer. To have surgery at [facility] soon. UA not c/w UTI and CT chest without pneumonia . Follow-up blood 3. rectal mass 4. dementia 5. DM 6. HTN 7. acute respiratory failure on admit--resolved RECOMMENDATIONS: - continue meropenem for at least 7 days--today is day is day 4--assuming negative follow-up blood cultures. - follow repeat the blood cxs. d/w pharmacy staff Exam done via telemedicine with the aid of a HIPPA protected audio/visual interface. Patient was at [facility] in [place], [place] while I was in my office in [place]. With patient consent. Subjective Date/time seen: 01/14/25 11:59 Interval history: 01/12/2025: Afebrile and vital signs stable. WBC 4.7. 01/13/2025: Afebrile with white blood cell count 4.8. BUN 16 and creatinine 0.68. 01/14/2025: Afebrile with white blood cell count 4.8. Awake and alert no complaints. Recent blood culture 01/09: Negative at 48 hours. Blood culture of 01/06: Pseudomonas, multidrug resistant, sensitive to meropenem. Review of Systems Review of Systems: All systems reviewed & are unremarkable except as noted in HPI and below Exam Narrative: Awake and alert and in no distress. Lying in bed. No respiratory difficulty. Abdomen without significant distension. No rash. Midline in place. Objective Data Vital Signs Vital Signs: Vital Signs - 24 hr 01/13/25 14:00 01/13/25 21:00 01/13/25 22:00 Temperature 97.4 F L 97.7 F Pulse Rate 59 L 58 L Respiratory Rate 18 18 Blood Pressure 167/71 H 157/85 H Pulse Oximetry 94 96 Oxygen Delivery Room Air 01/14/25 06:00 01/14/25 08:00 01/14/25 09:01 Temperature 97.5 F L Pulse Rate 57 L 72 Respiratory Rate 16 Blood Pressure 136/79 Pulse Oximetry 93 Oxygen Delivery Room Air Intake/Output Intake/Output: Intake & Output 01/11/25 01/12/25 01/13/25 01/14/25 23:59 23:59 23:59 23:59 Intake Total 2900 2370 2085 840 Output Total 3200 2400 3000 1500 Balance -300 -30 -915 -660 Meds/Results Medications: Active Medications Generic Name Dose Route Start Last Admin Trade Name Freq PRN Reason Stop Dose Admin Acetaminophen 650 mg 01/03/25 16:05 Acetaminophen 325 Mg Tablet PO Q4H PRN Mild Pain (1-3) or Fever Atenolol 50 mg 01/05/25 16:15 01/14/25 09:01 Atenolol 50 Mg Tablet PO 50 mg DAILY [place] Administration Atorvastatin Calcium 10 mg 01/04/25 09:00 01/14/25 09:00 Atorvastatin 10 Mg Tablet PO 10 mg DAILY [place] Administration Dextrose 12.5 gm 01/03/25 22:40 Dextrose 50% 25 Gm/50 Ml Syringe IV PUSH PRN PRN Hypoglycemia Protocol Donepezil HCl 10 mg 01/04/25 09:00 01/14/25 09:04 Donepezil Hcl 10 Mg Tablet PO 10 mg DAILY [place] Administration Enoxaparin Sodium 40 mg 01/04/25 09:00 01/14/25 09:04 Enoxaparin 40 Mg/0.4 Ml Syringe SUB-Q 40 mg DAILY [place] Administration Escitalopram Oxalate 10 mg 01/04/25 09:00 01/14/25 09:01 Escitalopram Oxalate 10 Mg Tablet PO 10 mg DAILY [place] Administration Glucagon 1 mg 01/03/25 22:40 Glucagon For Inj 1 Mg Vial IM PRN PRN Hypoglycemia Protocol Glucose 15 gm 01/03/25 22:40 Glucose Oral Gel 15 Gm Of Glucse In 37.5 Gm Tube PO PRN PRN Hypoglycemia Protocol Hydralazine HCl 10 mg 01/09/25 22:18 Hydralazine Hcl 20 Mg/Ml Vial IV PUSH Q8H PRN Blood Pressure - High Dextrose 1,000 mls @ 100 mls/hr 01/03/25 22:40 Dextrose 5% 1,000 Ml IVPB PRN PRN Hypoglycemia Protocol Meropenem 1 gm/ Sodium 100 mls @ 200 mls/hr 01/11/25 08:00 01/14/25 09:05 Chloride IVPB 01/18/25 00:29 200 mls/hr Q8H [place] Administration Insulin Aspart 2 - 5 units 01/04/25 08:00 01/14/25 09:09 Insulin Aspart (*Bkc) 100 Units/Ml SUB-Q Not Given TIDWM [place] Protocol Losartan Potassium 50 mg 01/04/25 09:00 01/14/25 09:01 Losartan Potassium 50 Mg Tablet PO 50 mg DAILY [place] Administration Mirtazapine 15 mg 01/03/25 21:00 01/13/25 20:49 Mirtazapine 15 Mg Tablet PO 15 mg HS [place] Administration Pantoprazole Sodium 40 mg 01/04/25 09:00 01/14/25 09:01 Pantoprazole 40 Mg Tablet PO 40 mg Q12HR [place] Administration Sodium Chloride 10 ml 01/12/25 22:00 01/13/25 23:51 Saline Lock Flush IV PUSH 10 ml Q8HR [place] Administration Sodium Chloride 10 ml 01/12/25 16:21 Saline Lock Flush IV PUSH PRN PRN Flush Sodium Chloride 20 ml 01/12/25 16:21 Saline Lock Flush IV PUSH PRN PRN after blood draws Tamsulosin HCl 0.4 mg 01/04/25 09:00 01/14/25 09:01 Tamsulosin Hcl 0.4 Mg Capsule PO 0.4 mg QAM [place] Administration Thiamine HCl 50 mg 01/04/25 09:00 01/14/25 09:00 Thiamine Hcl 50 Mg Tablet PO 50 mg DAILY [place] Administration Trazodone HCl 50 mg 01/04/25 21:00 01/13/25 20:49 Trazodone Hcl 50 Mg Tablet PO 50 mg QHS [place] Administration Radiology Results: ITS Impressions Chest X-Ray 01/03/25 14:08 Impression: No acute cardiopulmonary abnormality. Chest CTA 01/03/25 15:26 IMPRESSION: Negative for pulmonary embolism. No acute process Head CT 01/03/25 17:01 Impression: 1.No acute intracranial abnormality. Abdomen/Pelvis CT 01/03/25 17:05 IMPRESSION: 1. No acute intra-abdominal process, absence of intravenous contrast limits evaluation but there is no gross abscess identified 2. Incidental findings above. Correlate for bladder outlet obstruction Labs Labs: Laboratory Results - last 24 hr 01/13/25 01/14/25 01/14/25 16:30 04:30 07:54 WBC 4.8 RBC 3.07 L Hgb 10.1 L Hct 30.9 L MCV 100.7 H MCH 32.9 MCHC 32.7 RDW 15.0 H Plt Count 225 MPV 9.2 Immature Gran % (Auto) 0.2 Neut % (Auto) 72.1 Lymph % (Auto) 10.6 L [place] % (Auto) 9.4 H Eos % (Auto) 6.7 H Baso % (Auto) 1.0 Lymph # (Auto) 0.51 L [place] # (Auto) 0.5 Eos # (Auto) 0.3 Baso # (Auto) 0.1 Abs Immat Gran (auto) 0.01 Absolute Neuts (auto) 3.5 Absolute Nucleated RBC 0.000 Nucleated RBC % 0.0 Sodium 133 L Potassium 3.9 Chloride 101 Carbon Dioxide 31 H Anion Gap 1 L BUN 18 Creatinine 0.73 Estim Creat Clear Calc 62 Estimated GFR > 60 Glucose 144 H POC Capillary Glucose 163 H 157 H Calcium 8.7 Total Bilirubin 0.5 AST 30 ALT 35 Alkaline Phosphatase 63 Total Protein 5.5 L Albumin 3.3 L 01/14/25 11:51 WBC RBC Hgb Hct MCV MCH MCHC RDW Plt Count MPV Immature Gran % (Auto) Neut % (Auto) Lymph % (Auto) [place] % (Auto) Eos % (Auto) Baso % (Auto) Lymph # (Auto) [place] # (Auto) Eos # (Auto) Baso # (Auto) Abs Immat Gran (auto) Absolute Neuts (auto) Absolute Nucleated RBC Nucleated RBC % Sodium Potassium Chloride Carbon Dioxide Anion Gap BUN Creatinine Estim Creat Clear Calc Estimated GFR Glucose POC Capillary Glucose 296 H Calcium Total Bilirubin AST ALT Alkaline Phosphatase Total Protein Albumin
[2025-01-14] MEDS: INSULIN ASPART (*BKC) 100 UNITS/ML SUB-Q (12:23)
--- NOTE | 2025-01-15 14:02 | P.PNCROSS_ITS ---
Event Note Event Note Event Note: Patient discharged yesterday on meropenem with plan to continue for 3 additional days. Patient was transferred back to the ED today after SNF was notified that his 01/09 hospitalization blood cultures were again positive for Gram-negative rods. Admit blood cultures from 01/06 were positive for multidrug resistant Pseudomonas which was not covered by the initial ceftriaxone and cefepime that he received. He was switched to meropenem on 01/11 -- 2 days after the 01/09 blood cultures were drawn. Anticipate that the 01/09 blood culture Gram-negative david will again be Pseudomonas with culture drawn at a time when he was not receiving appropriate antibiotics. Discussed with the ER staff today and recommended transfer back to SNF with the following order: -- obtain 2 sets of blood cultures prior to transfer back to SNF. -- continue meropenem but extend course through 01/22. -- repeat 2 sets of blood cultures on 01/24. -- if today's ED blood cultures again positive for Pseudomonas while on meropenem, or if 01/24 blood cultures again positive for Pseudomonas despite co mpleting a course of meropenem, he will require further evaluation that may include rehospitalization.
== END 2025-01-14 14:20 | DRG 871 ==
LOC: ANHED 16:21 → ANH3MED 17:12
PROVIDERS: Emergency Medicine; General Practice; Nurse Practitioner Gerontology; Physician Assistant; Admitting Provider Internal Medicine; Emergency Provider Registered Nurse; PCP Family Medicine; Visit Provider Physician Assistant
DX: R78.81 Bacteremia (principal); E43 Unspecified severe protein-calorie malnutrition; J96.00 Acute respiratory failure, unspecified whether with hypoxia or hypercapnia; E87.20 Acidosis, unspecified; Z68.1 Body mass index [BMI] 19.9 or less, adult; I11.0 Hypertensive heart disease with heart failure; I50.9 Heart failure, unspecified; J44.9 Chronic obstructive pulmonary disease, unspecified; B96.5 Pseudomonas (aeruginosa) (mallei) (pseudomallei) as the cause of diseases classified elsewhere; E11.9 Type 2 diabetes mellitus without complications; K62.89 Other specified diseases of anus and rectum; G30.9 Alzheimer's disease, unspecified; F02.80 Dementia in other diseases classified elsewhere, unspecified severity, without behavioral disturbance, psychotic disturbance, mood disturbance, and anxiety; F01.50 Vascular dementia, unspecified severity, without behavioral disturbance, psychotic disturbance, mood disturbance, and anxiety; Z20.822 Contact with and (suspected) exposure to COVID-19; Z85.72 Personal history of non-Hodgkin lymphomas; Z87.11 Personal history of peptic ulcer disease; Z86.73 Personal history of transient ischemic attack (TIA), and cerebral infarction without residual deficits; Z87.891 Personal history of nicotine dependence
CPT/HCPCS: 36410; 36415; 70450; 71045; 71275; 74176; 80048; 80053; 81001; 82948; 83605; 83735; 83880; 84145; 84153; 84484; 85025; 85610; 85730; 86140; 87040; 87186; 87637; 87641; 93005; 93306; 96361; 96365; 97110; 97116; 97162; 97165; 97530; 99285; A9270; C1751; G0378; J0456; J0692; J0696; J1650; J1815; J2003; J2185; J3373; J3475; J7030; J7050; Q9967

== ENCOUNTER 2025-01-15 11:21 | Emergency (ER) | payer MEDICARE, MEDICAID, SELFPAY ==
[2025-01-15] VITALS (23 sets, daily range): BP systolic 146–180; BP diastolic 78–94; PULSE 62–85; RESP 11–28; TEMP 36.4; O2SAT 89–100
--- OUTSIDE RECORDS SUMMARY | 2025-01-15 12:30 | XMS_ITS | Clinical Summary ---
Author Organization [facility] Address [address] [place] [address] Care Team Providers Care Hydrographic Surveyor Name Role Phone Unavailable Primary Care Provider Unavailabl e Source Comments [facility],non-owned Affiliates and Associated Physician Practices is amultiple site organization consisting of ambulatory clinics and hospital sitesin [place], [place], [place] and [place]. This disclosure is being madepursuant to the Care Everywhere program and may not contain all information available regarding this patient. Last updated 17.[facility] Peela Social History Tobacco Use Types Packs/Day Years [...] patient's age to complete this topic Insurance [facility] Address[facility] [id number] [place] [address] [facility] MANAGED MEDICARE ADV MEDICAID SPEND[place] SELF PAY NO INSURANCE Member Subscriber Plan / Payer (Ef fective for All Dates) Name:Konrad Johnson Member ID:Not on file Relation to Subscriber:Not on file Name:KONRAD JOHNSON Subscriber ID:Not on file (Home) Address: [address] [place] [address] Payer ID:Not on file Group ID:Not on file Type:Self Pay Address: [place], [place]
--- OUTSIDE RECORDS SUMMARY | 2025-01-15 12:30 | XMS_ITS | Encounter Summary ---
Author Organization [facility] Address [address] [place] [address] Phone Care Team Providers Care Distillery Manager Name Role Phone Kun Oconnor MD Primary Care Provider + [phone] Chace Newman DO Primary Care Provider [phone] Srini Smith MD Unavailable [phone] Courtney Pitt MULTIGRAPH OPERATOR Primary Care Provider +- [phone] Lucía Navarro DO Primary Care Provider +- [phone] Jude Arndt DO Unavailable [phone] Encounter Details Date Type Department Care Team (Latest Contact Info) Description 07/21/2019 Orders Only [facility] Scanning, Provider Social History Tobacco Use Types Packs/Day Years Used Date Smoking Tobacco: Never Smokeless Tobacco: Never Sex and Gender Information Value Date Recorded Sex Assigned at Not on file Legal Sex Male 7:[address] CLERK Gender Identity Not on file Sexual Orientation [...] on filedocumented in this encounter Care Teams Distillery Manager Relationship Specialty Start Date End Date Kun Oconnor MD [address] [place] [address] PCP - General 12/29/16 04/03/22 Chace Newman DO [address] [place] [address] PCP - General Family Medicine 04/04/22 09/16/24 Courtney Pitt, VICK [address] [place] [address] [address] [place] [address] PCP - General Internal Medicine 09/17/24 12/16/24 Lucía Navarro DO [address] [place] [address] [address] [place] [address] PCP - General Family Medicine 12/17/24 Srini Smith MD [address] [place] [address] Medical Oncologist/Electronics Parts Sales Representative Medical Oncology 04/07/22 01/07/25 Jude Arndt DO [address] [facility] [address] [place] [address] Referring Physician Surgery 01/08/25 documented as of this encounter
--- OUTSIDE RECORDS SUMMARY | 2025-01-15 12:30 | XMS_ITS | Encounter Summary ---
Author Organization [facility] Address [address] [place] [address] Phone Care Team Providers Care Computer Patternmaker Name Role Phone Kun Oconnor MD Primary Care Provider + [phone] Chace Newman DO Primary Care Provider [phone] Srini Smith MD Unavailable [phone] Courtney Pitt DATA COORDINATOR Primary Care Provider +- [phone] Lucía Navarro DO Primary Care Provider +- [phone] Jude Arndt DO Unavailable [phone] Encounter Details Date Type Department Care Team (Latest Contact Info) Description 07/18/2019 Orders Only [facility] Scanning, Provider Social History Tobacco Use Types Packs/Day Years Used Date Smoking Tobacco: Never Smokeless Tobacco: Never Sex and Gender Information Value Date Recorded Sex Assigned at Not on file Legal Sex Male 7:49 AM DRAW STRING KNOTTER Gender Identity Not on file Sexual Orientation [...] on filedocumented in this encounter Care Teams Computer Patternmaker Relationship Specialty Start Date End Date Kun Oconnor MD [address] [place] [address] PCP - General 12/29/16 04/03/22 Chace Newman DO [address] [place] [address] PCP - General Family Medicine 04/04/22 09/16/24 Courtney Pitt, VICK [address] [place] [address] [address] [place] [address] PCP - General Internal Medicine 09/17/24 12/16/24 Lucía Navarro DO [address] [place] [address] [address] [place] [address] PCP - General Family Medicine 12/17/24 Srini Smith MD [address] [place] [address] Medical Oncologist/High School English Teacher Medical Oncology 04/07/22 01/07/25 Jude Arndt DO [address] [facility] [address] [place] [address] Referring Physician Surgery 01/08/25 documented as of this encounter
--- OUTSIDE RECORDS SUMMARY | 2025-01-15 12:31 | XMS_ITS | Clinical Summary ---
Author Organization [facility] Medical [facility] 2 Address [address] [place] [address] Care Team Providers Care Air Crew Supervisor Name Role Phone Lucía Navarro DO Primary Care Provider [phone] Jude Arndt DO Unavailable [phone] Allergies Active Allergy Reactions Criticality Noted Date [...] traZODone (DESYREL) 50 mg tablet 3 Active escitalopram (LEXAPRO) 10 mg tablet Take 1 tablet (10 mg total) by mouth daily 5 Active mirtazapine (REMERON) 15 mg tabletIndicatio ns:Weight loss TAKE ONE TABLET BY MOUTH NIGHTLY 90 tablet 3 5 Active Active Problems Problem Noted Date Diagnosed Date Pneumonia 04/05/2022 Assessment & Plan (04/06/2022 12:28 PM BIOINFORMATICS ANALYST): Pt presented with productive cough and malaise. [...] 04/05/2022 Assessment & Plan (04/05/2022 7:59 AM BIOINFORMATICS ANALYST): - Home losartan and atenolol Elevated HDL 04/05/2022 Assessment & Plan (04/05/2022 8:01 AM BIOINFORMATICS ANALYST): - Home atorvastatin Diabetes mellitus type 2 without retinopathy Assessment & Plan (10/01/2019 9:02 AM CDT): -- No background diabetic retinopathy (SALES OPERATIONS LEAD) -- No neovascularization of the disc (NVD), [...] (CMS/HCC) Assessment & Plan (04/06/2022 12:29 PM BIOINFORMATICS ANALYST): - s/p Rituxan x4 ([id number]) - Now with PD with likely left kidney involvement - BR x6C held in setting of infection, restart once infection resolved - Follow up with Dr Smith outpt Type 2 diabetes mellitus without complication Encounter for colonoscopy du e to history of adenomatous colonic polyps 04/16/2018 Overview (04/16/2018): Added automatically from request for surgery [id number] Ganglion of hand 01/16/2017 Resolved Problems Problem Noted Date Diagnosed Date Resolved Date Acute respiratory failure with hypoxia 04/05/2022 04/06/2022 Assessment & Plan (04/06/2022 12:29 PM BIOINFORMATICS ANALYST): SpO2 down to 88%. On 2L O2. Likely 2/2 pna - Manage pna as elsewhere - Clinically improving with antibiotics. Wean O2 as tolerated Hyponatremia 04/05/2022 04/06/2022 Assessment & Plan (04/05/2022 1:09 PM BIOINFORMATICS ANALYST): Na 1344 -> 139. 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/03/2022 023 Assessment & Plan (04/05/2022 7:53 AM BIOINFORMATICS ANALYST): - s/p Rituxan x4 ([phone]) - Now with PD with likely left kidney involvement - BR x6C held in setting of infection, restart once infection resolved - Follows with Dr Smith Encounters Date Type Department Care Team Description 01/08/[address] [address] Shana Sequeira MA Successful Phone Call 12/02/[address] [address] Cherelle Oakley MA Chart Review (Med adherence) 11/10/2024 ACO Medication Access [address] [address] Carie Jonas CPhT from Last 3 Months Immunizations Immunization Administration [...] on file Legal Sex Male 7:49 AM BIOINFORMATICS ANALYST Gender Identity Not on file Sexual [...] lymphoma (CMS/HCC) (HCC) COLONOSCOPY 04/23/2023 2:53 PM BIOINFORMATICS ANALYST HEMOGLOBIN A1C STAT 04/04/2022 1:00 AM BIOINFORMATICS ANALYST LIPID PANEL STAT 04/04/2022 1:00 AM BIOINFORMATICS ANALYST HEPATITIS C ANTIBODY Routine 01/22/2019 2:22 PM BIOINFORMATICS ANALYST Ace marginal zone B-cell lymphoma (HCC) from [...] LAB BLOOD ORDERABLES Final R esult [facility] One [facility] [place] [address] * Colonoscopy (04/23/2023 2:53 PM BIOINFORMATICS ANALYST) Anatomical Region Laterality Modality Other Narrative Procedure Note Radha Shaw MD - 04/23/2023 2:53 PM [facility] Patient Name: Konrad Nieto Procedure Date: 04/23/2023 2:53 PM Date of : 1945 Admit Type: Outpatient Age: 77 Gender: Male Attending MD: Radha Shaw M.D. Room: [facility] ENDOSCOPY ROOM 9 Note Status: Finalized [...] The scope was passed under direct vision.The [id number] endoscope was introduced through the anus [...] On: 04/23/2023 2:53 PM Recognized by the [place] [employer] for promoting quality in endoscopy Radha Shaw MD ENDOSCOPY PROCEDURES Final Res ult * (ABNORMAL) Hemoglobin A1c (04/04/2022 1:00 AM BIOINFORMATICS ANALYST) Hgb A1C 7.9(H) 4.0 - 5.6 % [...] a fasting glucose. Blood 04/04/2022 1:00 AM BIOINFORMATICS ANALYST 04/04/2022 1:45 AM BIOINFORMATICS ANALYST Srini Smith MD LAB BLOOD ORDERABLES Final R esult [facility] One [facility] [place] [address] * Lipid panel (04/04/2022 1:00 AM BIOINFORMATICS ANALYST) Cholesterol 94 30 - 199 mg/dL [facility] Comment: Interpretive Data Ages < or [...] revised on 2017. Triglycerides 51 <=149 mg/dL [facility] Comment: Interpretive Data Ages < or = [...] revised on 2017. HDL 53 >=40 mg/dL [facility] Comment: Interpretive Data Ages < or = [...] on 2017. LDL, calculated 31 <=129 mg/dL [facility] Comment: Interpretive Data Ages < or = [...] revised on 2017. Non-HDL Cholesterol 41 mg/dL [facility] Comment: Interpretive Data Ages < or = [...] last revised on 2017. Chol/HDL ratio 2 [facility] Blood 04/04/2022 1:00 AM BIOINFORMATICS ANALYST 04/04/2022 1:42 AM BIOINFORMATICS ANALYST us Srini Smith MD LAB BLOOD ORDERABLES Final R esult Performing Organization Address [facility] Co de Phone Number [facility] Department [place] [address] * Hepatitis C antibody (01/22/2019 2:22 PM BIOINFORMATICS ANALYST) Hep C Ab Nonreactive Nonreactive [facility] Comment: Interpretive Data Positive results should be confirmed by a molecular method. If positive, a second separately collected sample should be submitted for Hepatitis C Virus (HCV) RNA Detection and Quantitation by Real-Time Reverse Obstetrician And Gynaecologist-PCR (RT-PCR). Current interpretive data was last revised on 2016. Blood specimen (specimen) 01/22/2019 2:22 PM BIOINFORMATICS ANALYST 01/22/2019 2:35 PM BIOINFORMATICS ANALYST us Annie donald NP LAB MICROBIOLOGY - GENERAL ORDERABLES Edited Result - Final Performing Organization Address [facility] Co de Phone Number [facility] Department [place] [address] from Last 3 Months or Most Recently Relevant to Health Maintenance Insurance [facility] MEDICARE ADVANTAGE Member Subscriber Plan / Payer (Ef fective 2023-Present) Name:Konrad Nieto Relation to Subscriber:Self Name:Gerson Konrad Zac Payer ID:[id number] (NAIC) Type:[facility] MEDICARE Address: [place] [phone] UHC MEDICARE ADVANTAGE Member Subscriber Plan / Payer ( fective 2023-Present) Name:Konrad Nieto Relation to Subscriber:Self Name:Konrad Nieto Payer ID:[id number] (NAIC) Type:[facility] MEDICARE Address: [place] [phone] [address] [place] [phone] Advance Directives For more information, please contact: [phone] * Full Code (Latest Code Status on File) Date Activated Date Inactivated Comments 04/23/2023 3:07 PM 04/23/2023 8:55 PM * Full Code Date Activated Date Inactivated Comments 04/03/2022 11:40 PM 04/06/2022 9:40 PM * Full Code Date Activated Date Inactivated Comments 04/26/2018 6:57 AM 04/26/2018 1:31 PM Care Teams Air Crew Supervisor Relationship Specialty Start Date End Date Lucía Navarro DO [address] [facility] [address] [address] [place] [address] PCP - General Family Medicine 12/17/24 Jude Arndt DO [address] [place], [place] [id number] Referring Physician Surgery 01/08/25
--- OUTSIDE RECORDS SUMMARY | 2025-01-15 12:31 | XMS_ITS | Encounter Summary ---
Author Organization [facility] Address [address] [facility] [place] [address] Care Team Providers Care Supervisor Grove Name Role Phone Unavailable Primary Care Provider Unavailabl e Encounter Details Date Type Department Care Team (Late st Contact Info) Description 01/03/2019 Lab Requisition [facility] Care Pathology Lab [address] [place] [address] Mainor Zavaleta MD [address] [place] [id number] Social History Tobacco Use Types Packs/Day [...] CDT) Case Report Surgical Pathology Report Case: [id number] Authorizing Provider: Mainor Zavaleta MD Collected: 01/01/2019 09:25 AM Ordering Location: [facility] Received: 01/03/2019 09:41 AM Pathologist: Lu King MD Specimen: Lymph Node Biopsy, [id number] 01/06/2019 11:46 AM MACHINE WEDGER [facility] Final Diagnosis Lymph nodes, periportal aortic, excision: - Marginal zone lymphoma. - See description. 01/06/2019 11:46 AM [facility] at [address] MACHINE WEDGER Microscopic Description and Comment Review of the [...] are performed on block B3 in the [facility] Department of Pathology, with appropriately reactive controls, and demonstrate the followings: CD20 and BCL-2 are positive in the neoplastic cells. CD3, CD5, CD10, CD23, CD43, cyclin D1, and MUM-1 are negative in the neoplastic cells. CD23 shows a few residual follicular dendritic cell meshworks that are colonized by neoplastic cells. Concurrent lymph node flow cytometry ([id number]) detects a CD5-negative, MJ20-npytnzoh mature B-cell lymphoma. 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 Correlation with clinical findings and relevant cytogenetic/molecular testing is required. KR/MM 01/06/2019 11:46 AM [facility] PATH[facility] LAB Clinical History Lymphadenopathy. 01/06/2019 11:46 AM [facility] Materials Received Received from [facility], [place], [place] are 5 slides and 5 blocks labeled Konrad Nieto and [id number]. All original materials are returned along with a copy of our report. 01/06/2019 11:46 AM [facility] Disclaimer The performance characteristics of all immunohistochemical and indirect immunofluorescence stains (if any) cited in this report were determined by the Histopathology Laboratory of [facility]. Some of these tests were developed by [...] interpretation of this case is performed by [facility] Pathology at [facility], [address] [place] [address]. 01/06/2019 11:46 AM [facility] Embedded Images 01/06/2019 11:46 AM [facility] Pathology/Cytolo gy BIOPSY OF LYMPH NODE / Unknown 01/01/2019 9:25 AM CDT 01/03/2019 9:41 AM CDT Mainor Zavaleta MD LAB - PATHOLOGY/CYTOLOGY ORDER ROMAIN Final Result [facility] PATHOLOGY LAB [address] [place] [address] documented in this encounter Visit Diagnoses Not on filedocumented in this encounter
--- OUTSIDE RECORDS SUMMARY | 2025-01-15 12:31 | XMS_ITS | Encounter Summary ---
Author Organization [facility] Address [address] [place] [address] Care Team Providers Care General Service Officer Name Role Phone Unavailable Primary Care Provider Unavailabl e Encounter Details Date Type Department Care Team (Late st Contact Info) Description 01/01/2019 Lab Requisition [facility] Care Pathology Lab [address] [place] [address] Mainor Zavaleta MD [address] [place] [address] Enlarged lymph nodes, unspecified Social History [...] AM CDT) Case Report Flow Cytometry Case: [id number] Authorizing Provider: Mainor Zavaleta MD Collected: 01/01/2019 08:24 AM Ordering Location: [facility] Care Pathology Lab Received: 01/01/2019 12:16 PM Pathologist: Omkar Houston MD Specimen: Lymph Node, ANNA PORTAL AORTIC LYMPH NODE 9 11:50 AM CDT [facility] Final Diagnosis Lymph node, periportal aortic, flow cytometric immunophenotypic analysis: - CD5-negative, SW30-jnsmviou mature B-cell lymphoma. - See interpretation. 9 11:50 AM [facility] PATHOLOGY LAB at 1150 CDT Flow [...] flow cytometry specimen is reviewed for quality rn purposes. Overall, the periportal aortic lymph node shows an evidence of involvement by CD5-negative, [id number]-cjpvbdoq mature B-cell lymphoma. Correlation with clinical findings and concurrent tissue biopsy ([id number]) is required. 9 11:50 AM [facility] Flow Cytometry Results Differential Result Comment Flow Cell Count /uL 114,000 Total Viability % 79.0 Lymphocytes % 98 Dim CD45 Region % 1 Monocytes % 0 Granulocytes % 1 9 11:50 AM [facility] Reason for test Enlarged lymph nodes , unspecified 9 11:50 AM [facility] Client Specimen ID # [id number] 9 11:50 AM [facility] Number of markers 16 were performed. A-2 Flow CD3 A-4 Flow CD10 A-6 Flow CD20 A-7 Flow CD23 A-12 Flow CD2 A-13 Flow CD4 A-16 Flow CD1a A-3 Flow CD5 A-5 Flow CD19 A-8 Flow CD34 A-9 Flow CD45 A-14 Flow CD7 A-15 Flow CD8 A-17 Flow CD30 A-10 [place]+CD19+ A-11 Lambda+CD19+ 9 11:50 AM [facility] Disclaimer Test performed at [facility], [address] [place] [address], [address]. *The established laboratory minimum viability is 70%. [...] [facility] [address] [phone] documented in this encounter Visit Diagnoses Diagnosis Enlarged lymph nodes, unspecified documented in this encounter
--- OUTSIDE RECORDS SUMMARY | 2025-01-15 12:31 | XMS_ITS | Encounter Summary ---
Author Organization [facility] Address [address] [place] [address] Phone Care Team Providers Care Pre Fabricator Name Role Phone Kun Oconnor MD Primary Care Provider [phone] Chace Newman DO Primary Care Provider [phone] Srini Smith MD Unavailable [phone] [address] TINNER HELPER Primary Care Provider [phone]- [phone] Lucía Navarro DO Primary Care Provider [phone]- [phone] Jude Arndt DO Unavailable [phone] Encounter Details Date Type Department Care Team (Latest Contact Info) Description 07/19/2019 Orders Only [facility] Scanning, Provider Social History Tobacco Use Types Packs/Day Years Used Date Smoking Tobacco: Never Smokeless Tobacco: Never Sex and Gender Information Value Date Recorded Sex Assigned at Not on file Legal Sex Male 7:49 AM MILL 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 Gender Identity Not on file Sexual Orientation [...] on filedocumented in this encounter Care Teams Pre Fabricator Relationship Specialty Start Date End Date Kun Oconnor MD [address] [place] [address] PCP - General 12/29/16 04/03/22 Chace Newman DO [address] [place] [address] PCP - General Family Medicine 04/04/22 09/16/24 Courtney Pitt, VICK [address] [place] [address] [address] [place] [address] PCP - General Internal Medicine 09/17/24 12/16/24 Lucía Navarro DO [address] [place] [address] [address] [place] [address] PCP - General Family Medicine 12/17/24 Srini Smith MD [address] [place] [address] Medical Oncologist/Vocational Technical Education Director Medical Oncology 04/07/22 01/07/25 Jude Arndt DO [address] [facility] [address] [place] [address] Referring Physician Surgery 01/08/25 documented as of this encounter
--- OUTSIDE RECORDS SUMMARY | 2025-01-15 12:31 | XMS_ITS ---
Author Organization [facility] 2 Address [address] [facility] [place] [address] Care Team Providers Care Ship Self Defense System Mk1 Operator Name Role Phone Lucía Navarro DO Primary Care Provider [phone] Jude Arndt DO Unavailable [phone] Active Problems Problem Noted Date Diagnosed Date Pneumonia 04/05/2022 Assessment & Plan (04/06/2022 12:28 PM BAG REPAIRER): Pt presented with productive cough and malaise. [...] 04/05/2022 Assessment & Plan (04/05/2022 7:59 AM BAG REPAIRER): - Home losartan and atenolol Elevated HDL 04/05/2022 Assessment & Plan (04/05/2022 8:01 AM BAG REPAIRER): - Home atorvastatin Diabetes mellitus type 2 without retinopathy Assessment & Plan (10/01/2019 9:02 AM CDT): -- No background diabetic retinopathy (REPERTOIRE MANAGER) -- No neovascularization of the disc [...] (CMS/HCC) Assessment & Plan (04/06/2022 12:29 PM BAG REPAIRER): - s/p Rituxan x4 () - Now with PD with likely left kidney involvement - BR x6C held in setting of infection, restart once infection resolved - Follow up with Dr Smith outpt Type 2 diabetes mellitus without complication Encounter for colonoscopy du e to history of adenomatous colonic polyps 04/16/2018 Overview (04/16/2018): Added automatically from request for surgery [id number] Ganglion of hand 01/16/2017 Current Treatment and [...] Smith MD 6 of 6 cycles started [id number] - [facility] - Lymphoma - ILyAD - RiTUXimab [...] 04/06/2022 Assessment & Plan (04/06/2022 12:29 PM BAG REPAIRER): SpO2 down to 88%. On 2L O2. Likely 2/2 pna - Manage pna as elsewhere - Clinically improving with antibiotics. Wean O2 as tolerated Hyponatremia 04/05/2022 04/06/2022 Assessment & Plan (04/05/2022 1:09 PM BAG REPAIRER): Na 1344 -> 139. 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/03/2022 023 Assessment & Plan (04/05/2022 7:53 AM BAG REPAIRER): - s/p Rituxan x4 (2321-6498) - Now with PD with likely left kidney involvement - BR x6C held in setting of infection, restart once infection resolved - Follows with Dr Smith
--- NOTE | 2025-01-15 12:38 | PC.NURSE ---
patient instructed multiple times to remain NPO - patient noted to be drinking dr shukla when this rn entered the room. patient verbalizes understanding and states that he will not eat or drink anything prior to seeing the doctor.
[2025-01-15 13:05] LABS: Hematocrit 33.4 % (42.0-52.0); Hemoglobin 10.6 g/dL (14.0-18.0); Immature Granulocyte Percent A 0.2 % (0-0.5); Lymphocytes Absolute Auto 0.36 K/mm3 (0.9-3.2); Mean Corpuscular HGB Conc 31.7 g/dl (32-36); Mean Corpuscular Hemoglobin 33.1 pg (26-34); Mean Corpuscular Volume 104.4 fl (80-100); Nucleated Red Blood Cells Absolute Auto 0.000 K/mm3 (0.0-0.012); Nucleated Red Blood Cells Perc 0.0 % (0.0-0.2); Platelet Count Result 222 k/mm3 (150-375); Red Blood Count 3.20 M/mm3 (4.6-6.20); White Blood Count 4.5 K/mm3 (4.5-10.0)
[2025-01-15 13:17] LABS: Alanine Aminotransferase 51 U/L (6-50); Albumin Level 3.9 g/dL (3.5-5.1); Alkaline Phosphatase 67 U/L (38-126); Anion Gap 2 mmol/L (4-12); Aspartate Amino Transferase 36 U/L (17-59); Bilirubin,Total 0.4 mg/dL (0.2-1.3); Blood Urea Nitrogen 20 mg/dL (9-20); Calcium 8.7 mg/dL (8.4-10.2); Carbon Dioxide 35 mmol/L (22-30); Chloride 98 mmol/L (98-107); Estimated CRCL calculation 61 ml/min; Estimated Glomerular Filt Rate > 60; Glucose 298 mg/dL (65-110); Potassium 4.2 mmol/L (3.4-5.0); Sodium 135 mmol/L (137-145); Total Protein 6.1 g/dL (6.3-8.2)
--- NOTE | 2025-01-15 13:29 | ED.RECABL ---
HPI - Recheck/Abnormal Lab/Rx General Chief Complaint: Recheck/Abnormal Lab/Rx Stated Complaint: bacteria infection Time Seen by Provider: 01/15/25 12:36 Source: patient Mode of arrival: EMS Limitations: no limitations History of Present Illness HPI narrative: This is a 79-year-old male that presents to the emergency department for positive blood cultures. His facility was called and told his blood cultures from the 7th were positive, was sent to the ER for further management. Patient does not have any symptoms currently. Related Data Home Medications ?Medication ?Instructions ?Recorded ?Confirmed ?Last Taken ?Type blood sugar diagnostic #10 ea 03/26/19 01/03/25 Unknown History lancets 33 gauge (OneTouch Delica #100 ea 03/26/19 01/03/25 Unknown History Lancets) mirtazapine 15 mg tablet 15 mg PO HS 12/15/24 01/03/25 01/02/25 History losartan 50 mg tablet 50 mg PO DAILY 12/25/24 01/03/25 01/02/25 History pioglitazone 45 mg tablet 45 mg PO DAILY 12/25/24 01/03/25 01/02/25 History metformin 500 mg tablet 500 mg PO BID 01/03/25 01/03/25 01/03/25 History omeprazole 20 mg capsule,delayed 20 mg PO BID 01/03/25 01/03/25 01/02/25 History release Allergies Allergy/AdvReac Type Severity Reaction Status Date / Time No Known Allergies Allergy Verified 01/03/25 18:33 Review of Systems Review of Systems: All systems reviewed & are unremarkable except as noted in HPI and below PMFSH Past Medical History Medical History Abnormal CT scan, colon COPD (chronic obstructive pulmonary disease) CHF (congestive heart failure) Vascular dementia Cerebral infarction Incisional hernia s/p repair, 2019 Hemorrhoids GI bleed due to NSAIDs Acute blood loss anemia Duodenal ulcer (~2019) Colon polyps Benign prostatic hyperplasia Dyslipidemia Essential hypertension Marginal zone lymphoma Treated with chemotherapy at [facility] in [place] per Dr. Gresham. Chronic anemia Ganglion cyst of joint of finger of left hand Type 2 diabetes mellitus without complications Surgical History Surgical History History of incisional hernia repair laparoscopic repair of multiple incisional hernia with 25x20 cm Symbotex mesh 09/17/19 History of transurethral resection of prostate Wound dehiscence, traumatic injury repair (~01/2019) Repair of abdominal wound fascial dehiscence with evisceration. Status post exploratory laparotomy (~12/2018) With excisional biopsy of periaortic and periportal lymphadenopathy, histology showing marginal zone lymphoma. Family History Family History Father Acute myocardial infarction Sibling Cerebrovascular accident Family history of malignant neoplasm of brain Mother Family history of congestive heart failure Sibling Lung cancer Social History Social History Social History: The patient is and lives in his own home in [place]. He has 3 biological children and 2 step children. 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 He is a lifelong nonsmoker and denies alcohol and drug abuse. He designates his daughter, Brisa Brunner, as his surrogate decision maker and he wishes to be a full code. Smoking packs per day: 0.5 Smoking cigarettes per day: 10.0 Years smoked: 50 Smoking pack-years: 25.00 Smoking status: Former smoker Tobacco type: cigarettes Second hand tobacco smoke exposure: No Alcohol intake: former Substance use: never Substance use type: does not use Do You Feel Safe in your Home?: Yes Lack of Transportation: YES Lack of Food: Never True Current Housing: I Have Housing Concerned About Future Housing: No Difficulty Paying Gas/Electric Bills: No Difficulty Paying for Meds: No Currently Unemployed: No Education: Master's Degree or Higher Difficulty w/ Childcare or Family Care: No Living arrangements: alone Occupation/Education: occupation Additional occupation/education comments: 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 [employer] Gender identity (if verbalized by the patient): Male Spiritual care concerns: No Agree to blood products: Yes Exam Narrative: GENERAL: Well-appearing, well-nourished, and in no acute distress. HEAD: Normocephalic, atraumatic. EYES: EOMI. ENT: Nares clear, no rhinorrhea or epistaxis. Mucous membranes moist. Oropharynx without tonsillar hypertrophy exudate or other lesions. CHEST: Clear to auscultation. No respiratory distress. No wheezes rales or rhonchi HEART: Regular rate and rhythm. No murmur heard. Normal peripheral pulses. ABDOMEN: Soft, nontender, nondistended, normal active bowel sounds. EXTREMITIES: Normal range of motion. No edema. SKIN: Warm, dry, no rash. NEURO: No focal deficits. Alert and oriented x3. PSYCH: Normal mood and affect Course Consultations Consultation #1: Spoke with infectious disease, Dr. Soliz, about patient and workup. Patient will be continued on Meropenem through the . Will repeat blood cultures today and on the . If his blood cultures from today continue to come back positive patient will likely need to be admitted Date: 01/15/25 Vital Signs Vital signs: Vital Signs Temperature 97.5 F L 01/15/25 11:28 Pulse Rate 78 01/15/25 11:28 Respiratory Rate 17 01/15/25 11:28 Blood Pressure 171/80 H 01/15/25 11:28 Pulse Oximetry 94 01/15/25 11:28 Oxygen Delivery Room Air 01/15/25 11:28 Temperature 97.5 F L 01/15/25 11:28 Pulse Rate 65 01/15/25 15:00 Respiratory Rate 17 01/15/25 15:00 Blood Pressure 167/78 H 01/15/25 14:31 Pulse Oximetry 100 01/15/25 15:00 Oxygen Delivery Room Air 01/15/25 12:27 MDM - Recheck/Abnormal Lab/Rx MDM Narrative Medical decision making narrative: Patient presents for positive blood cultures. Spoke with infectious disease, Dr. Soliz, about patient and workup. Patient will be continued on Meropenem through the . Will repeat blood cultures today and on the . If his blood cultures from today continue to come back positive patient will likely need to be admitted. Patient okay for discharge back to his facility today Lab Data Attestation: I reviewed the patient's lab results. 01/15/25 12:55 01/15/25 12:55 Labs: Lab Results 01/15/25 Range/Units 12:55 WBC 4.5 (4.5-10.0) K/mm3 RBC 3.20 L (4.6-6.20) M/mm3 Hgb 10.6 L (14.0-18.0) g/dL Hct 33.4 L (42.0-52.0) % MCV 104.4 H (80-100) fl MCH 33.1 (26-34) pg MCHC 31.7 L (32-36) g/dl RDW 15.0 H (11.5-14.5) % Plt Count 222 (150-375) k/mm3 MPV 9.5 (7.4-10.4) fl Immature Gran % (Auto) 0.2 (0-0.5) % Neut % (Auto) 77.7 H (45.5-73.1) % Lymph % (Auto) 8.1 L (18.3-44.2) % [place] % (Auto) 9.0 H (2.6-8.5) % Eos % (Auto) 4.3 (0-4.4) % Baso % (Auto) 0.7 (0.2-1.2) % Lymph # (Auto) 0.36 L (0.9-3.2) K/mm3 [place] # (Auto) 0.4 (0.1-0.6) K/mm3 Eos # (Auto) 0.2 (0-0.3) K/mm3 Baso # (Auto) 0.0 (0.0-0.1) K/mm3 Abs Immat Gran (auto) 0.01 (0.00-0.031) K/mm3 Absolute Neuts (auto) 3.5 (1.3-6.7) K/mm3 Absolute Nucleated RBC 0.000 (0.0-0.012) K/mm3 Nucleated RBC % 0.0 (0.0-0.2) % Sodium 135 L (137-145) mmol/L Potassium 4.2 (3.4-5.0) mmol/L Chloride 98 (98-107) mmol/L Carbon Dioxide 35 H (22-30) mmol/L Anion Gap 2 L (4-12) mmol/L BUN 20 (9-20) mg/dL Creatinine 0.72 (0.7-1.3) mg/dL Estim Creat Clear Calc 61 ml/min Estimated GFR > 60 (59 - ) Glucose 298 H (65-110) mg/dL Calcium 8.7 (8.4-10.2) mg/dL Total Bilirubin 0.4 (0.2-1.3) mg/dL AST 36 (17-59) U/L ALT 51 H (6-50) U/L Alkaline Phosphatase 67 (38-126) U/L Total Protein 6.1 L (6.3-8.2) g/dL Albumin 3.9 (3.5-5.1) g/dL Critical Care Time Critical Care Time Critical Care Time: No Discharge Plan Discharge Clinical Impression: Blood culture positive Patient Disposition: Home Condition: Stable Instructions: Antibiotic Form, Bacteremia (ED) Additional Instructions: Return to the emergency department if you experience fever, chest pain, shortness of breath, abdominal pain with nausea and vomiting, or any other symptoms that are concerning to you. We are going to lengthen your antibiotic therapy. You will now continue them through 01/22. We are also going to repeat your blood cultures on 01/24. Follow up with primary care doctor Patient Language: Maltese Prescriptions: New meropenem-0.9% sodium chloride 1 gram/50 mL piggyback 1 g IV Q8H Discontinued meropenem-0.9% sodium chloride 1 gram/50 mL piggyback 1 g IV Q8H No Action trazodone 50 mg tablet 50 mg PO QHS Qty: 90 1RF escitalopram oxalate [Lexapro] 10 mg tablet 10 mg PO DAILY Qty: 90 1RF losartan 50 mg tablet 50 mg PO DAILY pioglitazone 45 mg tablet 45 mg PO DAILY atenolol [Tenormin] 50 mg tablet 50 mg PO DAILY Qty: 90 1RF omeprazole 20 mg capsule,delayed release(DR/EC) 20 mg PO BID metformin 500 mg tablet 500 mg PO BID tamsulosin 0.4 mg Capsule 0.4 mg PO QAM 30 Days Qty: 30 0RF mirtazapine 15 mg tablet 15 mg PO HS (DME) lancets [OneTouch Delica Lancets] 33 gauge misc See Rx Instructions .ROUTE .MEDSUPPLY Qty: 100 Rx Instructions: As directed (DME) blood sugar diagnostic Strip See Rx Instructions .ROUTE .MEDSUPPLY Qty: 10 Rx Instructions: As directed atorvastatin 10 mg tablet 10 mg PO DAILY Qty: 90 1RF thiamine HCl (vitamin B1) 50 mg tablet 50 mg PO DAILY Qty: 90 1RF glimepiride 2 mg tablet 1 mg PO BID Qty: 90 1RF ferrous sulfate 324 mg (65 mg iron) tablet,delayed release (DR/EC) 324 mg PO DAILY Qty: 90 1RF magnesium oxide 400 mg magnesium tablet 400 mg PO DAILY Qty: 7 0RF donepezil [Aricept] 10 mg tablet 10 mg PO DAILY Qty: 90 1RF Follow-up/Referrals: Lucía Navarro DO [Primary Care Provider, Family Practice] Stand Alone Forms: Long Term Discharge
--- OUTSIDE RECORDS SUMMARY | 2025-01-15 13:58 | XMS_ITS | Encounter Summary ---
Author Organization [facility] Address [address] [place] [address] Phone Care Team Providers Care Workforce Management Analyst Name Role Phone Kun Oconnor MD Primary Care Provider [phone] Chace Newman DO Primary Care Provider [phone] Srini Simth MD Unavailable [phone] Courtney Pitt TRANSMISSION CALIBRATION ENGINEER Primary Care Provider +- [phone] Lucía Navarro DO Primary Care Provider +- [phone] Jude Arndt DO Unavailable [phone] Encounter Details Date Type Department Care Team (Latest Contact Info) Description 07/19/2019 Orders Only [facility] Scanning, Provider Social History Tobacco Use Types Packs/Day Years Used Date Smoking Tobacco: Never Smokeless Tobacco: Never Sex and Gender Information Value Date Recorded Sex Assigned at Not on file Legal Sex Male 7:49 AM DOCUMENT ADVISOR Gender Identity Not on file Sexual Orientation [...] on filedocumented in this encounter Care Teams Workforce Management Analyst Relationship Specialty Start Date End Date Kun Oconnor MD [address] [place] [address] PCP - General 12/29/16 04/03/22 Chace Newman DO [address] [place] [address] PCP - General Family Medicine 04/04/22 09/16/24 Courtney Pitt, VICK [address] [place] [address] [address] [place] [address] PCP - General Internal Medicine 09/17/24 12/16/24 Lucía Navarro DO [address] [place] [address] [address] [place] [address] PCP - General Family Medicine 12/17/24 Srini Smith MD [address] [place] [address] Medical Oncologist/Control Officer Manager Medical Oncology 04/07/22 01/07/25 Jude Arndt DO [address] [facility] [address] [place] [address] Referring Physician Surgery 01/08/25 documented as of this encounter
--- OUTSIDE RECORDS SUMMARY | 2025-01-15 13:58 | XMS_ITS | Encounter Summary ---
Author Organization [facility] Address [address] [place] [address] Care Team Providers Care Shell Press Operator Name Role Phone Unavailable Primary Care Provider Unavailabl e Encounter Details Date Type Department Care Team (Late st Contact Info) Description 01/03/2019 Lab Requisition [facility] Care Pathology Lab [address] [place] [address] Mainor Zavaleta MD [address] [place] [id number] Social History Tobacco Use Types Packs/Day [...] CDT) Case Report Surgical Pathology Report Case: [id number] Authorizing Provider: Mainor Zavaleta MD Collected: 01/01/2019 09:25 AM Ordering Location: [facility] Received: 01/03/2019 09:41 AM Pathologist: Lu King MD Specimen: Lymph Node Biopsy, [id number] 01/06/2019 11:46 AM BOWLING BALL MOLD ASSEMBLER [facility] Final Diagnosis Lymph nodes, periportal aortic, excision: - Marginal zone lymphoma. - See description. 01/06/2019 11:46 AM [facility] at [address] BOWLING BALL MOLD ASSEMBLER Microscopic Description and Comment Review of the [...] performed on block B3 in the [facility] Department of Pathology, with appropriately reactive controls, and demonstrate the followings: CD20 and BCL-2 are positive in the neoplastic cells. CD3, CD5, CD10, CD23, CD43, cyclin D1, and MUM-1 are negative in the neoplastic cells. CD23 shows a few residual follicular dendritic cell meshworks that are colonized by neoplastic cells. Concurrent lymph node flow cytometry ([id number]) detects a CD5-negative, [id number] mature B-cell lymphoma. 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 Correlation with clinical findings and relevant cytogenetic/molecular testing is required. KR/MM 01/06/2019 11:46 AM [facility] Clinical History Lymphadenopathy. 01/06/2019 11:46 AM [facility] Materials Received Received from [facility], [place], [place] are 5 slides and 5 blocks labeled Konrad Nieto and [id number]. All original materials are returned along with a copy of our report. 01/06/2019 11:46 AM [facility] Disclaimer The performance characteristics of all immunohistochemical and indirect immunofluorescence stains (if any) cited in this report were determined by the Histopathology Laboratory of [facility]. Some of these tests were [...] interpretation of this case is performed by [facility] Pathology at [facility], [address] [place] [id number]. 01/06/2019 11:46 AM [facility] Embedded Images 01/06/2019 11:46 AM [facility] Pathology/Cytolo gy BIOPSY OF LYMPH NODE / Unknown 01/01/2019 9:25 AM CDT 01/03/2019 9:41 AM CDT Mainor Zavaleta MD LAB - PATHOLOGY/CYTOLOGY ORDER ROMAIN Final Result [facility] [address] [place] [address] documented in this encounter Visit Diagnoses Not on filedocumented in this encounter
--- OUTSIDE RECORDS SUMMARY | 2025-01-15 13:58 | XMS_ITS | Encounter Summary ---
Author Organization [facility] Address [address] [place] [address] Phone Care Team Providers Care Barrel Builder Name Role Phone Kun Oconnor MD Primary Care Provider + [phone] Chace Newman DO Primary Care Provider [phone] Srini Smith MD Unavailable [phone] [address] RAILWAY PATROL OFFICER Primary Care Provider [phone]- [phone] Lucía Navarro DO Primary Care Provider [phone]- [phone] Jude Arndt DO Unavailable [phone] Encounter Details Date Type Department Care Team (Latest Contact Info) Description 07/21/2019 Orders Only [facility] Scanning, Provider Social History Tobacco Use Types Packs/Day Years Used Date Smoking Tobacco: Never Smokeless Tobacco: Never Sex and Gender Information Value Date Recorded Sex Assigned at Not on file Legal Sex Male 7:49 AM DESIGN LEADER Gender Identity Not on file Sexual Orientation [...] on filedocumented in this encounter Care Teams Barrel Builder Relationship Specialty Start Date End Date Kun Oconnor MD [address] [place] [address] PCP - General 12/29/16 04/03/22 Chace Newman DO [address] [place] [address] PCP - General Family Medicine 04/04/22 09/16/24 Courtney Pitt, VICK [address] [place] [address] [address] [place] [address] PCP - General Internal Medicine 09/17/24 12/16/24 Lucía Navarro DO [address] [place] [address] [address] [place] [address] PCP - General Family Medicine 12/17/24 Srini Smith MD [address] [place] [address] Medical Oncologist/Net Fisher Medical Oncology 04/07/22 01/07/25 Jude Arndt DO [address] [email or web address] [address] [place] [address] Referring Physician Surgery 01/08/25 documented as of this encounter
--- OUTSIDE RECORDS SUMMARY | 2025-01-15 13:58 | XMS_ITS | Clinical Summary ---
Author Organization [facility] Address [address] [facility] [place] [address] Care Team Providers Care Geoscientist Name Role Phone Lucía Navarro DO Primary Care Provider [phone] Jude Arndt DO Unavailable [phone] Allergies Active Allergy Reactions Criticality Noted Date [...] 04/05/2022 Assessment & Plan (04/06/2022 12:28 PM LIBRARY HELPER): Pt presented with productive cough and malaise. [...] 04/05/2022 Assessment & Plan (04/05/2022 7:59 AM LIBRARY HELPER): - Home losartan and atenolol Elevated HDL 04/05/2022 Assessment & Plan (04/05/2022 8:01 AM LIBRARY HELPER): - Home atorvastatin Diabetes mellitus type 2 without retinopathy Assessment & Plan (10/01/2019 9:02 AM CDT): -- No background diabetic retinopathy (OPERATIONS COORDINATOR) -- No neovascularization of the disc (NVD), [...] (CMS/HCC) Assessment & Plan (04/06/2022 12:29 PM LIBRARY HELPER): - s/p Rituxan x4 ([id number]) - Now with PD with likely left kidney involvement - BR x6C held in setting of infection, restart once infection resolved - Follow up with Dr Smith outpt Type 2 diabetes mellitus without complication Encounter for colonoscopy du e to history of adenomatous colonic polyps 04/16/2018 Overview (04/16/2018): Added automatically from request for surgery [id number] Ganglion of hand 01/16/2017 Resolved Problems Problem Noted Date Diagnosed Date Resolved Date Acute respiratory failure with hypoxia 04/05/2022 04/06/2022 Assessment & Plan (04/06/2022 12:29 PM LIBRARY HELPER): SpO2 down to 88%. On 2L O2. Likely 2/2 pna - Manage pna as elsewhere - Clinically improving with antibiotics. Wean O2 as tolerated Hyponatremia 04/05/2022 04/06/2022 Assessment & Plan (04/05/2022 1:09 PM LIBRARY HELPER): Na 1344 -> 139. 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/03/2022 023 Assessment & Plan (04/05/2022 7:53 AM LIBRARY HELPER): - s/p Rituxan x4 ([id number]) - Now with PD with likely left kidney involvement - BR x6C held in setting of infection, restart once infection resolved - Follows with Dr Smith Encounters Date Type Department Care Team Description 01/08/[address] [address] Shana Sequeira MA Successful Phone Call 12/02/[address] [address] Cherelle Oakley MA Chart Review (Med adherence) 11/10/2024 ACO Medication Access [address] [address] Carie Jonas CPhT from Last 3 Months [...] on file Legal Sex Male 7:49 AM LIBRARY HELPER Gender Identity Not on file Sexual [...] lymphoma (CMS/HCC) (HCC) COLONOSCOPY 04/23/2023 2:53 PM LIBRARY HELPER HEMOGLOBIN A1C STAT 04/04/2022 1:00 AM LIBRARY HELPER LIPID PANEL STAT 04/04/2022 1:00 AM LIBRARY HELPER HEPATITIS C ANTIBODY Routine 01/22/2019 2:22 PM LIBRARY HELPER Ace marginal zone B-cell lymphoma (HCC) from [...] [facility] [address] [facility] Department [place] [address] * Colonoscopy (04/23/2023 2:53 PM LIBRARY HELPER) Anatomical Region Laterality Modality Other Narrative Procedure [...] The scope was passed under direct vision.The [id number] endoscope was introduced through the anus [...] the entire procedure. Electronically signed by Radha Sahw MD Radha Shaw M.D. 04/23/2023 3:59:58 PM . Number of Addenda: 0 Note Initiated On: 04/23/2023 2:53 PM Recognized by the [place] for promoting quality in endoscopy Radha Shaw MD ENDOSCOPY PROCEDURES Final Res ult * (ABNORMAL) Hemoglobin A1c (04/04/2022 1:00 AM LIBRARY HELPER) Hgb A1C 7.9(H) 4.0 - 5.6 % [...] a fasting glucose. Blood 04/04/2022 1:00 AM LIBRARY HELPER 04/04/2022 1:45 AM LIBRARY HELPER Srini Smith MD LAB BLOOD ORDERABLES Final R esult [facility] [address] [facility] [place] [address] * Lipid panel (04/04/2022 1:00 AM LIBRARY HELPER) Cholesterol 94 30 - 199 mg/dL [facility] Comment: Interpretive [...] revised on 2017. Triglycerides 51 <=149 mg/dL [facility] Comment: Interpretive Data Ages < [...] revised on 2017. HDL 53 >=40 mg/dL [facility] Comment: Interpretive Data Ages < [...] on 2017. LDL, calculated 31 <=129 mg/dL [facility] Comment: Interpretive Data Ages < [...] on 2017. Non-HDL Cholesterol 41 mg/dL [facility] Comment: Interpretive Data Ages < [...] revised on 2017. Chol/HDL ratio 2 [facility] Blood 04/04/2022 1:00 AM LIBRARY HELPER 04/04/2022 1:42 AM LIBRARY HELPER us Srini Smith MD LAB BLOOD ORDERABLES Final R esult Performing Organization Address [facility] Co de Phone Number [facility] Department [place] [address] * Hepatitis C antibody (01/22/2019 2:22 PM LIBRARY HELPER) Hep C Ab Nonreactive Nonreactive [facility] Comment: Interpretive Data Positive results should be confirmed by a molecular method. If positive, a second separately collected sample should be submitted for Hepatitis C Virus (HCV) RNA Detection and Quantitation by Real-Time Reverse Clinical Nurse Leader-PCR (RT-PCR). Current interpretive data was last revised on 2016. Blood specimen (specimen) 01/22/2019 2:22 PM LIBRARY HELPER 01/22/2019 2:35 PM LIBRARY HELPER us Annie donald NP LAB MICROBIOLOGY - GENERAL ORDERABLES Edited Result - Final Performing Organization Address [facility] Co de Phone Number [facility] Department [place] [address] from Last 3 Months or Most Recently Relevant to Health Maintenance Insurance [facility]IC[facility] ADVANTAGE [facility] Address: [place] [id number] UHC MEDICARE ADVANTAGE [facility] Address: [place] [id number] [place] [id number] Advance Directives For more information, please contact: [phone] * Full Code (Latest Code Status on File) Date Activated Date Inactivated Comments 04/23/2023 3:07 PM 04/23/2023 8:55 PM * Full Code Date Activated Date Inactivated Comments 04/03/2022 11:40 PM 04/06/2022 9:40 PM * Full Code Date Activated Date Inactivated Comments 04/26/2018 6:57 AM 04/26/2018 1:31 PM Care Teams Geoscientist Relationship Specialty Start Date End Date Lucía Navarro DO [address] [facility] [address] [place] [address] PCP - General Family Medicine 12/17/24 Jude Arndt DO [address] [place], [place] [address] Referring Physician Surgery 01/08/25
--- OUTSIDE RECORDS SUMMARY | 2025-01-15 13:58 | XMS_ITS ---
Author Organization [facility] 2 Address [address] [facility] [place] [address] Care Team Providers Care Regulator Assembler Name Role Phone Lucía Navarro DO Primary Care Provider [phone] Jude Arndt DO Unavailable [phone] Active Problems Problem Noted Date Diagnosed Date Pneumonia 04/05/2022 Assessment & Plan (04/06/2022 12:28 PM [employer]): Pt presented with productive cough and malaise. [...] 04/05/2022 Assessment & Plan (04/05/2022 7:59 AM [employer]): - Home losartan and atenolol Elevated HDL 04/05/2022 Assessment & Plan (04/05/2022 8:01 AM [employer]): - Home atorvastatin Diabetes mellitus type 2 without retinopathy Assessment & Plan (10/01/2019 9:02 AM CDT): -- No background diabetic retinopathy (WATER ANALYST) -- No neovascularization of the disc (NVD), [...] (CMS/HCC) Assessment & Plan (04/06/2022 12:29 PM [employer]): - s/p Rituxan x4 () - Now with PD with likely left kidney involvement - BR x6C held in setting of infection, restart once infection resolved - Follow up with Dr Smith outpt Type 2 diabetes mellitus without complication Encounter for colonoscopy du e to history of adenomatous colonic polyps 04/16/2018 Overview (04/16/2018): Added automatically from request for surgery [id number] Ganglion of hand 01/16/2017 Current Treatment and [...] Smith MD 6 of 6 cycles started [id number] - [facility] - Lymphoma - ILyAD - RiTUXimab + [...] 04/06/2022 Assessment & Plan (04/06/2022 12:29 PM [employer]): SpO2 down to 88%. On 2L O2. Likely 2/2 pna - Manage pna as elsewhere - Clinically improving with antibiotics. Wean O2 as tolerated Hyponatremia 04/05/2022 04/06/2022 Assessment & Plan (04/05/2022 1:09 PM [employer]): Na 1344 -> 139. 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/03/2022 023 Assessment & Plan (04/05/2022 7:53 AM [employer]): - s/p Rituxan x4 ([id number]) - Now with PD with likely left kidney involvement - BR x6C held in setting of infection, restart once infection resolved - Follows with Dr Smith
--- OUTSIDE RECORDS SUMMARY | 2025-01-15 13:58 | XMS_ITS | Clinical Summary ---
Author Organization [facility] Address [address] [place] [address] Care Team Providers Care Clinical Unit Educator Name Role Phone Unavailable Primary Care Provider Unavailabl e Source Comments [facility],non-owned Affiliates and Associated Physician Practices is amultiple site organization consisting of ambulatory clinics and hospital sitesin [place], [place], [place] and [place]. This disclosure is being madepursuant to the Care Everywhere program and may not contain all information available regarding this patient. Last updated 17.[facility] [employer] Social History Tobacco Use Types Packs/Day Years [...] patient's age to complete this topic Insurance [facility] Address[facility] [address] [place] [address] [facility] MANAGED MEDICARE ADV MEDICAID SPENDDOWN [place] SELF PAY NO INSURANCE Member Subscriber Plan / Payer (Ef fective for All Dates) Name:Konrad Johnson Member ID:Not on file Relation to Subscriber:Not on file Name:KONRAD JOHNSON Subscriber ID:Not on file (Home) Address: [address] [place] [address] Payer ID:Not on file Group ID:Not on file Type:Self Pay Address: [place], [place]
--- OUTSIDE RECORDS SUMMARY | 2025-01-15 13:58 | XMS_ITS | Encounter Summary ---
Author Organization [facility] Address [address] [place] [address] Care Team Providers Care Utility Plant Operative Name Role Phone Unavailable Primary Care Provider Unavailabl e Encounter Details Date Type Department Care Team (Late st Contact Info) Description 01/01/2019 Lab Requisition [facility] Care Pathology Lab [address] [place] [address] Mainor Zavaleta MD [address] [place] [id number] Enlarged lymph nodes, unspecified Social History [...] AM CDT) Case Report Flow Cytometry Case: [id number] Authorizing Provider: Mainor Zavaleta MD Collected: 01/01/2019 08:24 AM Ordering Location: [facility] Care Pathology Lab Received: 01/01/2019 12:16 PM Pathologist: Omkar Houston MD Specimen: Lymph Node, ANNA PORTAL AORTIC LYMPH NODE 9 11:50 AM CDT [facility] Final Diagnosis Lymph node, periportal aortic, flow cytometric immunophenotypic analysis: - 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 - See interpretation. 9 11:50 AM [facility] at 1150 CDT Flow [...] the flow cytometry specimen is reviewed for clinical quality assurance specialist purposes. Overall, the periportal aortic lymph node shows an evidence of involvement by CD5-negative, [id number] mature B-cell lymphoma. Correlation with clinical findings and concurrent tissue biopsy ([id number]) is required. 9 11:50 AM [facility] Flow Cytometry Results Differential Result Comment Flow Cell Count /uL 114,000 Total Viability % 79.0 Lymphocytes % 98 Dim CD45 Region % 1 Monocytes % 0 Granulocytes % 1 9 11:50 AM [facility] Reason for test Enlarged lymph nodes , unspecified 9 11:50 AM [facility] Client Specimen ID # [id number] 9 11:50 AM [facility] Number of markers 16 were performed. A-2 Flow CD3 A-4 Flow CD10 A-6 Flow CD20 A-7 Flow CD23 A-12 Flow CD2 A-13 Flow CD4 A-16 Flow CD1a A-3 Flow CD5 A-5 Flow CD19 A-8 Flow CD34 A-9 Flow CD45 A-14 Flow CD7 A-15 Flow CD8 A-17 Flow CD30 A-10 [place]+CD19+ A-11 Lambda+CD19+ 9 11:50 AM [facility] Disclaimer Test performed at [facility], [address] [place] [address], [id number]. *The established laboratory minimum viability is 70%. [...] complexity clinical testing. 9 11:50 AM CDT [facility] Embedded Images 9 11:50 AM CDT [facility] Pathology/Cytolo gy ENTIRE LYMPH NODE / Unknown 01/01/2019 8:24 AM CDT 01/01/2019 12:16 PM CDT Mainor Zavaleta MD LAB - PATHOLOGY/CYTOLOGY ORDER ROMAIN Final Result [facility] [address] [phone] documented in this encounter Visit Diagnoses Diagnosis Enlarged lymph nodes, unspecified documented in this encounter
--- OUTSIDE RECORDS SUMMARY | 2025-01-15 13:58 | XMS_ITS | Encounter Summary ---
Author Organization [facility] Address [address] [place] [address] Phone Care Team Providers Care Rn Call Center Name Role Phone Kun Oconnor MD Primary Care Provider [phone] Chace Newman DO Primary Care Provider [phone] Srini Smith MD Unavailable [phone] Courtney Pitt WATER MAIN INSPECTOR Primary Care Provider [phone]- [phone] Lucía Navarro DO Primary Care Provider [phone]- [phone] Jude Arndt DO Unavailable [phone] Encounter Details Date Type Department Care Team (Latest Contact Info) Description 07/18/2019 Orders Only [facility] Scanning, Provider Social History Tobacco Use Types Packs/Day Years Used Date Smoking Tobacco: Never Smokeless Tobacco: Never Sex and Gender Information Value Date Recorded Sex Assigned at Not on file Legal Sex 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 Gender Identity Not on file Sexual Orientation [...] on filedocumented in this encounter Care Teams Rn Call Center Relationship Specialty Start Date End Date Kun Oconnor MD [address] [place] [address] PCP - General 12/29/16 04/03/22 Chace Newman DO [address] [place] [address] PCP - General Family Medicine 04/04/22 09/16/24 Courtney Pitt, VICK [address] [place] [address] [address] [place] [address] PCP - General Internal Medicine 09/17/24 12/16/24 Lucía Navarro DO [address] [place] [address] [address] [place] [address] PCP - General Family Medicine 12/17/24 Srini Smith MD [address] [place] [address] Medical Oncologist/Chain Builder Medical Oncology 04/07/22 01/07/25 Jude Arndt DO [address] [facility] [address] [place] [address] Referring Physician Surgery 01/08/25 documented as of this encounter
== END 2025-01-15 16:35 ==
PROVIDERS: Emergency Provider Physician Assistant; PCP Family Medicine
DX: R78.81 Bacteremia (principal); F01.50 Vascular dementia, unspecified severity, without behavioral disturbance, psychotic disturbance, mood disturbance, and anxiety; I50.9 Heart failure, unspecified; I11.0 Hypertensive heart disease with heart failure; E11.9 Type 2 diabetes mellitus without complications; E78.5 Hyperlipidemia, unspecified; J44.9 Chronic obstructive pulmonary disease, unspecified; N40.0 Benign prostatic hyperplasia without lower urinary tract symptoms; D64.9 Anemia, unspecified; Z86.0100 Personal history of colon polyps, unspecified; Z90.79 Acquired absence of other genital organ(s); Z79.84 Long term (current) use of oral hypoglycemic drugs; Z79.899 Other long term (current) drug therapy
CPT/HCPCS: 36415; 80053; 85025; 87040; 99283